=== PATIENT | male | born 1995 | race Caucasian/White ===

== ENCOUNTER 2024-02-19 16:40 | Emergency (ER) | payer OTHER, SELFPAY ==
[2024-02-19 16:48] VITALS: BP 145/77; PULSE 91; TEMP 36.8; O2SAT 99; BMI 20.1
--- NOTE | 2024-02-19 17:02 | ED_ITS ---
HPI - Abdominal Pain General Chief Complaint: Abdominal Pain Stated Complaint: Abdominal Pain Time Seen by Provider: 02/19/24 16:46 Source: patient Mode of arrival: walk-in Limitations: no limitations History of Present Illness HPI narrative: 28-year-old male presents for groin pain, bilaterally. This has been an ongoing issue and he states he has cysts. He has been seeing a specialist in [place] about it and is scheduled to have an ultrasound. The only reason he is here today is to get something for pain. He has been on no prescription pain medications. There is been no injury or new symptoms. No fever vomiting constipation or diarrhea. Related Data Previous Rx's ?Medication ?Instructions ?Recorded acetaminophen 300 mg-codeine 30 mg 1 tab PO Q6H PRN pain 5 days #20 02/19/24 tablet tabs Allergies Allergy/AdvReac Type Severity Reaction Status Date / Time No Known Drug Allergies Allergy Verified 02/19/24 16:47 Review of Systems ROS Narrative A ten point review of systems is negative except as noted above. Exam Narrative Exam Narrative: Nurses note and vital signs reviewed and patient is not hypoxic. General: The patient appears well and in no apparent distress. Patient is resting comfortably on cart. Skin: Warm, dry, no pallor noted. There is no rash noted. Head: Normocephalic, atraumatic Eye: Normal conjunctiva, no drainage Ears, Nose, Mouth, and Throat: oral mucosa is moist. Nares patent. Cardiovascular: Regular Rate and Rhythm Respiratory: Patient is in no distress, no accessory muscle use, lungs are clear to auscultation, no wheezing, rales or rhonchi Back: non-tender GI: Soft and nontender; in the bilateral inguinal area he has some palpable lym ph nodes on each side. No abscess or erythema Musculoskeletal: The patient has no evidence of calf tenderness, no pitting edema, symmetrical pulses noted bilaterally Neurological: A&O, normal speech Psychiatric: Cooperative Constitutional Vital Signs, click to edit/add: Last Vital Signs Temp 98.2 F 02/19/24 16:48 Pulse 91 H 02/19/24 16:48 Resp 16 02/19/24 16:48 BP 145/77 H 02/19/24 16:48 Pulse Ox 99 02/19/24 16:48 O2 Del Method Room Air 02/19/24 16:48 Course Vital Signs Vital signs: Vital Signs Temperature 98.2 F 02/19/24 16:48 Pulse Rate 91 H 02/19/24 16:48 Respiratory Rate 16 02/19/24 16:48 Blood Pressure 145/77 H 02/19/24 16:48 Pulse Oximetry 99 02/19/24 16:48 Oxygen Delivery Method Room Air 02/19/24 16:48 Temperature 98.2 F 02/19/24 16:48 Pulse Rate 91 H 02/19/24 16:48 Respiratory Rate 16 02/19/24 16:48 Blood Pressure 145/77 H 02/19/24 16:48 Pulse Oximetry 99 02/19/24 16:48 Oxygen Delivery Method Room Air 02/19/24 16:48 MDM - Abdominal Pain MDM Narrative Medical decision making narrative: The patient likely has inguinal adenopathy but this is an ongoing problem and he is already seeing a specialist and has testing ordered. He will be treated symptomatically. Treatment diagnosis and follow-up were discussed with the patient. He does not have hidradenitis or an abscess Differential Diagnosis Differential diagnosis: Likely other (Lymphadenopathy, hidradenitis, abscess) Discharge Plan Discharge Stand Alone Forms: Portal Instructions Chief Complaint: Abdominal Pain Clinical Impression: Abdominal pain Patient Disposition: Home, Self-Care Time of Disposition Decision: 16:59 Condition: Good Mode of Transportation: Private Vehicle Prescriptions / Home Meds: New acetaminophen-codeine 300-30 mg tablet 1 tab PO Q6H PRN (Reason: pain) 5 Days Qty: 20 0RF Print Language: Estonian Instructions: Abdominal Pain (ED) Referrals: Physician,Non-Staff, MD [Primary Care Provider] - 1 week
== END 2024-02-19 17:08 | disposition home or self-care (01) ==
PROVIDERS: Emergency Provider Emergency Medicine; PCP Family Medicine
DX: R10.9 Unspecified abdominal pain (principal)
CPT/HCPCS: 99281

== ENCOUNTER 2024-02-22 00:07 | Emergency (ER) | payer OTHER, SELFPAY ==
[2024-02-22 00:11] VITALS: BP 143/92; PULSE 85; TEMP 36.6; O2SAT 100
--- OUTSIDE RECORDS SUMMARY | 2024-02-22 00:25 | XMS_ITS | CCD ---
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 Name Role Phone ELIAZARNARGIS CANTOR Unavailable Unavailable ANGEL CHARLTON Unavailable Unavailable REQUEST, NONE LISTED Primary Care Unavaila ble JAM, KLAUS Admitting Unavailable JAM, KLAUS Attending Unavailable JAM, KLAUS Consulting Unavailable REQUEST, NONE LISTED Primary Care Unavaila ble GARRETT, DR IFRAH Bell Admitting Unavailable GARRETT, DR IFRAH Bell Attending Unavailable GARRETT, DR IFRAH Bell Consulting Unavailable LUE ., GAIL Bo Admitting Unavailable LUE ., GAIL Bo Attending Unavailable REQUEST, NONE LISTED Primary Care Unavaila ble LUE ., GAIL Bo Consulting Unavailable LUE ., GAIL Bo Admitting Unavailable LUE ., GAIL Bo Attending Unavailable REQUEST, NONE LISTED Primary Care Unavaila ble LUE ., GAIL Bo Consulting Unavailable LUE ., GAIL M Admitting Unavailable LUE ., GAIL M Attending Unavailable REQUEST, NONE LISTED Primary Care Unavaila ble REQUEST, NONE LISTED Referring Unavaila ble CASEY ALARCON Consulting Unavailable ELEUTERIO RAIN Consulting Unavailable BAL LAURENT Consulting Unavailable LUE ., GAIL M Consulting Unavailable MIKHAIL WILDER Referring Unavailable ANGEL CHARLTON Primary Care Unavailable ZOLTAN, ANGEL Primary Care Unavailable MILEY VERDUGO Attending Unavailable ANGEL CHARLTON Primary Care Unavailable GADIEL LUQUE Attending Unavailable DARRION BARTH Referring Unavailable ZOLTAN, ANGEL Primary Care Unavailable NONE, XXXX Primary Care Physician Unavailab Casey Clark Attending Unavailable LEONEL VEGA Attending Unavailab Hank Kaminski Attending Unavailable Casey Gonzales Attending Unavailable Medications Current Medications Medication Drug Class(es) Dates Sig (Normalized) Sig (Original) cephalexin 500 mg oral capsule (1 source) Cephalosporin Antibacterial Start: 01-24-2024 take 500 mg by mouth three times daily Cephalexin Active 500 MG PO Three times daily 14 08January 24, 2024 12:00am Problems Active Problems Problem Classification Problem Date Documented Da te Episodic/Chronic Anxiety disorders (5 sources) Anxiety disorder, unspecified; Translations: [ANXIETY DISORDER UNSPECIFIED] Onset: 08-20-2022 Chronic Genitourinary symptoms and ill-defined conditions (2 sources) Personal history of urinary (tract) infections; Translations: [Urinary symptoms ] Onset: 12-15-2021 09-30-2021 Episodic Lymphadenitis (3 sources) Localized enlarged lymph nodes; Translations: [Localized enlarged lymph nodes] Onset: 02-09-2024 Episodic Other fractures (1 source) Wedge compression fracture of unspecified thoracic vertebra, subsequent encounter for fracture with routine healing; Translations: [Wedge compression fracture of unspecified thoracic vertebra, subsequent encounter for fracture with routine healing] Onset: 02-06-2018 Episodic Other male genital disorders (2 sources) Cyst of epididymis; Translations: [Cyst of epididymis] Onset: 02-09-2024 Episodic Other male genital disorders (1 source) H/O: male genital disorder 09-30-2021 Episodic Other non-traumatic joint disorders (3 sources) Pain in left knee; Translations: [Pain in left knee] Onset: 08-04-2023 Episodic Sexually transmitted infections (not HIV or hepatitis) (1 source) Gonorrhea 11-01-2021 Episodic Sprains and strains (1 source) Sprain of unspecified site of left knee, initial encounter; Translations: [Sprain of unspecified site of left knee, initial encounter] Onset: 07-25-2023 Episodic Substance-related disorders (1 source) Nicotine dependence, cigarettes, uncomplicated; Translations: [NICOTINE DEPEND CIGARETTES UNCOMP] Onset: 07-22-2022 Chronic Unclassified (1 source) UNVACCINATED FOR COVID-19; Translations: [UNVACCINATED FOR COVID-19] Onset: 07-22-2022 Unclassified (1 source) CONTACT W/AND (SUSP) EXPOS COVID-19; Translations: [CONTACT W/AND (SUSP) EXPOS COVID-19] Onset: 12-07-2021 Urinary tract infections (1 source) Recurrent urinary tract infection 09-30-2021 Episodic Viral infection (1 source) COVID-19; Translations: [COVID-19] Onset: 07-22-2022 Past or Other Problems Problem Classification Problem Date Documented Da te Episodic/Chronic Chronic obstructive pulmonary disease and bronchiectasis (1 source) Bronchitis, not specified as acute or chronic; Translations: [BRONCHITIS NOT SPEC ACUTE/CHRON] Onset: 07-22-2022 Episodic Other lower respiratory disease (3 sources) Dyspnea, unspecified; Translations: [DYSPNEA UNSPECIFIED] Onset: 07-21-2022 Episodic Other male genital disorders (4 sources) Cyst of epididymis; Translations: [CYST OF EPIDIDYMIS] Onset: 12-08-2021 Episodic Other skin disorders (1 source) Epidermal cyst; Translations: [EPIDERMAL CYST] Onset: 12-03-2021 Episodic Results Test Name Value Interpretation Reference Range Facility Ambulatory Visit Summaryon 0 02-13-2024 Ambulatory Visit Summary FRIENDUMER :1995 Visit Date:02/13/2024 Ambulatory Visit Instructions Your Diagnosis Inguinal lymphadenopathy Epididymal cyst BMI 24.0-24.9, adult Vaping-related disorder Your Care Team Attending Physician - Casey Gonzales MD Primary Care Physician - Casey Gonzales MD Procedures Performed Arthroscopy of knee, Cholecystectomy, Epididymal cyst. Discharge Vitals Temperature (Temporal Artery) 37.3 ?C Heart Rate (Peripheral) 100 Respiratory Rate 18 Blood Pressure 130/68 Height 65 in Height 165 cm Weight 149.38 lb Weight 67.9 kg BMI 24.94 What to do next Scheduled Follow-Up Appointments Monday 1:00 PM EDT With: Where: [facility] Monday 8:30 AM EDT With: Casey Gonzales MD Where: [facility] [place] Normal [facility] Family Medicine Office/Clini c Noteon 02-13-2024 Family Medicine Office/Clinic Note HPI Staff Umer is a 28 year old male presenting to establish care Referred by Karo Vega urology office for inguinal lymphadenopathy Establish Care: History:epididymitis, recurrent uti's Any previous diagnosis: gonococcus, epididymal cyst History of seeing any specialist: urology 02/09/24 When was your last doctors visit: age 19 Last provider: no pcp in very long time Any recent labs: none Health Maintenance UTD: Colonoscopy: none PSA: none Acute: Current issues/complaints: History of Present Illness - Here to establish care. - Pt was seen by Urology. - Discussed with them. - Hx of LAD and treated at the with Abx. - NO improvement. - Imagine ordered. - LAD is TTP. Physical Exam Vitals & Measurements T: 37.3 ?C(Temporal Artery) HR: 100(Peripheral) RR: 18 BP: 130/68 SpO2: 99% HT: 65 in HT: 165 cm WT: 67.9 kg WT: 149.38 lb BMI: 24.94 General: alert, no acute distress ENMT: oral mucosa moist, Cardiovascular: regular rate and rhythm, normal peripheral perfusion Respiratory: Lungs CTA, respirations non labored Extremities: no deformity, no trauma, Lymph nodes present along both Inguinal canals. Neurological: oriented x 4, LOC appropriate for age, CN II-XII intact, motor strength equal & normal bilaterally, speech normal Abdomen: Soft, Nontender, Non-distended, + BS Assessment/Plan 1. Inguinal lymphadenopathy (R59.0: Localized enlarged lymph nodes) - Pt already scheduled for U/S - Already on Abx. - Will refer to surgery [place] [facility] 2. Epididymal cyst (N50.3: Cyst of epididymis) - Needs to see surgery Or[place] [facility] 3. BMI 24.0-24.9, adult (Z68.24: Body mass index [BMI] 24.0-24.9, adult) - BMI education given [place] [facility] 4. Vaping-related disorder (U07.0: Vaping-related disorder) - Discussed not vaping. Or[place] [facility] Follow-up No qualifying data available Patient Education BMI for Adults Problem List/Past Medical History Ongoing Epididymal cyst Gonococcus History of epididymitis Inguinal lymphadenopathy Recurrent UTI Historical No qualifying data Procedure/Surgical History Arthroscopy of knee, Cholecystectomy, Epididymal cyst. Medications No active medications Allergies No Known Allergies Social History Tobacco Former smoker, quit more than 30 days ago Tobacco Use:. Current vaping or e-cigarette use Smokeless Tobacco Use:. Vaping, 02/13/2024 Immunizations Vaccine Date Status Comments SARS-CoV-2 (COVID-19) Ad26 vaccine - Not Given Temporary contraindication - reschedule Normal [facility] Comment on above: Result Comment: Elec tronically Signed By: Christian SAXENA, Casey Schulz.celestine\Date and Time Signed: 02/13/24 13:41 EDT Patient Educationon 02-13-20 Patient Education Nutrition BMI for Adults What is BMI? Body mass index (BMI) is a number that is calculated from a person's weight and height. BMI can help estimate how much of a person's weight is composed of fat. BMI does not measure body fat directly. Rather, it is an alternative to procedures that directly measure body fat, which can be difficult and expensive. BMI can help identify people who may be at higher risk for certain medical problems. What are BMI measurements used for? BMI is used as a screening tool to identify possible weight problems. It helps determine whether a person is obese, overweight, a healthy weight, or underweight. BMI is useful for: ? Identifying a weight problem that may be related to a medical condition or may increase the risk for medical problems. ? Promoting changes, such as changes in diet and exercise, to help reach a healthy weight. BMI screening can be repeated to see if these changes are working. How is BMI calculated? BMI involves measuring your weight in relation to your height. Both height and weight are measured, and the BMI is calculated from those numbers. This can be done either in Italian ([place] or metric measurements. Note that charts and online BMI calculators are available to help you find your BMI quickly and easily without having to do these calculations yourself. To calculate your BMI in Italian ([place] measurements: 1. Measure your weight in pounds (lb). 2. Multiply the number of pounds by 703. ? For example, for a person who weighs 180 lb, multiply that number by 703, which equals 126,540. 3. Measure your height in inches. Then multiply that number by itself to get a measurement called inches squared. ? For example, for a person who is 70 inches tall, the inches squared measurement is 70 inches x 70 inches, which equals 4,900 inches squared. 4. Divide the total from step 2 (number of lb x 703) by the total from step 3 (inches squared): 126,540 ? 4,900 = 25.8. This is your BMI. To calculate your BMI in metric measurements: 1. Measure your weight in kilograms (kg). 2. Measure your height in meters (m). Then multiply that number by itself to get a measurement called meters squared. ? For example, for a person who is 1.75 m tall, the meters squared measurement is 1.75 m x 1.75 m, which is equal to 3.1 meters squared. 3. Divide the number of kilograms (your weight) by the meters squared number. In this example: 70 ? 3.1 = 22.6. This is your BMI. What do the results mean? BMI charts are used to identify whether you are underweight, normal weight, overweight, or obese. The following guidelines will be used: ? Underweight: BMI less than 18.5. ? Normal weight: BMI between 18.5 and 24.9. ? Overweight: BMI between 25 and 29.9. ? Obese: BMI of 30 or above. Keep these notes in mind: ? Weight includes both fat and muscle, so someone with a muscular build, such as an athlete, may have a BMI that is higher than 24.9. In cases like these, BMI is not an accurate measure of body fat. ? To determine if excess body fat is the cause of a BMI of 25 or higher, further assessments may need to be done by a health care provider. ? BMI is usually interpreted in the same way for men and women. Where to find more information For more information about BMI, including tools to quickly calculate your BMI, go to these websites: ? Centers for Disease Control and Prevention: www.cdc.gov ? [place] Heart Association: www.heart.org ? National Heart, Lung, and Blood [place]: www.nhlbi.nih.gov Summary ? Body mass index (BMI) is a number that is calculated from a person's weight and height. ? BMI may help estimate how much of a person's weight is composed of fat. BMI can help identify those who may be at higher risk for certain medical problems. ? BMI can be measured using Italian measurements or metric measurements. ? BMI charts are used to identify whether you are underweight, normal weight, overweight, or obese. This information is not intended to replace advice given to you by your health care provider. Make sure you discuss any questions you have with your health care provider. Document Revised: 06/24/2020 Document Reviewed: 05/01/2020 Elsevier Patient Education ? 2022 [employer]. [facility] Provider Letteron 02-13-2024 Provider Letter (Inserted Image. Mirella ble to display) February 13, 2024 UMER HERNANDEZ [address] [place] [id number] : 1995 To Whom It May Concern, Please excuse above patient from work du to an appt. with Dr. Gonzales @ 1:15 p.m. Date of Illness: From: _ To: _ May Return to Work On:02-14-24 Restrictions: _None Comments: _ Sincerely, Family Medicine [address] [address] [facility] Formson 02-12-2024 Forms [id number] [facility] Ambulatory Visit Summaryon 0 02-09-2024 Ambulatory Visit Summary UMER HERNANDEZ :1995 Visit Date:02/09/2024 Ambulatory Visit Instructions Your Diagnosis Inguinal lymphadenopathy Epididymal cyst Your Care Team Attending Physician - KARO VEGA PA-C Primary Care Physician - NONE, XXXX Procedures Performed Epididymal cyst. Discharge Vitals Height 165 cm Height 65 in Weight 78 kg Weight 171.6 lb BMI 28.65 What to do next You Need to Schedule the Following Appointments Follow Up with KARO VEGA PA-C, URL When: Comments: f/u pending imaging and lab results Where: [address] [place] [id number] You Need to Complete the Following US Scrotum (Contents), 02/09/24, Routine, Order for future visit, Transport Mode: Ambulatory, Reason: Other (please specify), No, Swollen lymph nodes of groin, [id number] alt[facility]rea, [facility] Allergies No Known Allergies Problems Ongoing - Any problem that you are currently receiving treatment for. Epididymal cyst Gonococcus History of epididymitis Inguinal lymphadenopathy Recurrent UTI Swollen lymph nodes UTI symptoms Patient Survey You may receive a survey via text or e-mail asking about your office visit. Please share your experience with us by completing your survey. We appreciate your feedback and thank you for choosing us for your care. Education Materials Testicular Self-Exam A self-examination of your testicles (testicular self-exam) involves looking at and feeling your testicles for abnormal lumps or swelling. Several things can cause swelling, lumps, or pain in your testicles. Some of these causes are: ? Injuries. ? Inflammation. ? Infection. ? Buildup of fluids around the testicle (hydrocele). ? Twisted testicles (testicular torsion). ? Testicular cancer. You may be at risk for testicular cancer if you have: ? An undescended testicle (cryptorchidism). ? A history of previous testicular cancer. ? A family history of testicular cancer. General tips and recommendations ? The testicles are easiest to examine after a warm bath or shower. They are more difficult to examine when you are cold because the muscles attached to the testicles retract and pull them up higher or into the abdomen. ? A normal testicle is egg-shaped and feels firm. It is smooth and not tender. ? It is normal to feel a firm, spaghetti-like cord at the back of your testicle. This is the spermatic cord. How to do a testicular self-exam 1. Stand and hold your penis away from your body. 2. Look at each testicle to check for changes in appearance, such as swelling or changes in size or shape. 3. Roll each testicle between your thumb and forefinger, feeling the entire testicle. Feel for: ? Lumps. ? Swelling. ? Discomfort. 4. Check the groin area between your abdomen and upper thighs on both sides of your body. Look and feel for any swelling or bumps that are tender. These could be enlarged lymph nodes. Contact a health care provider if: ? You find any bumps or lumps, such as a small, hard, pea-sized lump. ? You find swelling, pain, or soreness. ? You see or feel any other changes in your testicles. Summary ? A self-examination of your testicles (testicular self-exam) involves looking at and feeling your testicles for any changes. ? Check each of your testicles for lumps, swelling, or discomfort. These changes can be caused by many things. ? Check for swelling or tender bumps in your groin area between your lower abdomen and upper thighs. This information is not intended to replace advice given to you by your health care provider. Make sure you discuss any questions you have with your health care provider. Document Revised: 09/07/2020 Document Reviewed: 09/07/2020 For Your Imagination Patient Education ? 2022 [employer]. Connie Pe[facility]aloza [facility] Patient Educationon 02-09-20 Patient Education Urology Testicular Self-Exam A self-examination of your testicles (testicular self-exam) involves looking at and feeling your testicles for abnormal lumps or swelling. Several things can cause swelling, lumps, or pain in your testicles. Some of these causes are: ? Injuries. ? Inflammation. ? Infection. ? Buildup of fluids around the testicle (hydrocele). ? Twisted testicles (testicular torsion). ? Testicular cancer. You may be at risk for testicular cancer if you have: ? An undescended testicle (cryptorchidism). ? A history of previous testicular cancer. ? A family history of testicular cancer. General tips and recommendations ? The testicles are easiest to examine after a warm bath or shower. They are more difficult to examine when you are cold because the muscles attached to the testicles retract and pull them up higher or into the abdomen. ? A normal testicle is egg-shaped and feels firm. It is smooth and not tender. ? It is normal to feel a firm, spaghetti-like cord at the back of your testicle. This is the spermatic cord. How to do a testicular self-exam 1. Stand and hold your penis away from your body. 2. Look at each testicle to check for changes in appearance, such as swelling or changes in size or shape. 3. Roll each testicle between your thumb and forefinger, feeling the entire testicle. Feel for: ? Lumps. ? Swelling. ? Discomfort. 4. Check the groin area between your abdomen and upper thighs on both sides of your body. Look and feel for any swelling or bumps that are tender. These could be enlarged lymph nodes. Contact a health care provider if: ? You find any bumps or lumps, such as a small, hard, pea-sized lump. ? You find swelling, pain, or soreness. ? You see or feel any other changes in your testicles. Summary ? A self-examination of your testicles (testicular self-exam) involves looking at and feeling your testicles for any changes. ? Check each of your testicles for lumps, swelling, or discomfort. These changes can be caused by many things. ? Check for swelling or tender bumps in your groin area between your lower abdomen and upper thighs. This information is not intended to replace advice given to you by your health care provider. Make sure you discuss any questions you have with your health care provider. Document Revised: 09/07/2020 Document Reviewed: 09/07/2020 For Your Imagination Patient Education ? 2022 [employer]. [facility] Provider Letteron 02-09-2024 Provider Letter (Inserted Image. Mirella ble to display) February 09, 2024 UMER HERNANDEZ [address] [place] [id number] : 1995 To Whom It May Concern @ Please excuse above patient from work on 02/09/24. He had an appointment in our office at 12:20pm appointment today. Restrictions: None. He may return to work as scheduled. Comments: If any further verification is needed, call our office at [facility] at [phone] option 3. Sincerely, Karo Vega PA-C [facility] Screenson 02-09-2024 Screens [id number] [facility] Screens [id number] [facility] Urology Office/Clinic Noteon 02-09-2024 Urology Office/Clinic Note Chief Complaint OV HPI Staff KML pt. Last seen in office 12/29/21 due to epididymal cyst. S/p epididymal cyst removal 12/08/21. Pt. states he had a cyst under his scrotum, went to urgent care, took abx, it's gone. Also has cysts in his R groin. Have been there >1 yr. Not improved w abx. Dysuria: no Incomplete bladder emptying: no Hematuria: no Frequency: no Urgency: no Nocturia: 1-2x's Stream: good stream Post void dripping: no Wearing pads/ Depends: no Urge incontinence: no Stress incontinence: no Incontinence without Sensory Awareness: no Abdominal pain: no Flank pain: no History of Present Illness staff HPI reviewed and agree. Review of Systems PHQ Score Initial Depression Screen Score: 0 SCORE no fever, chills, malaise, myalgia. no rash/lesions. no chest pain, palpitations, or SOB. no abdominal pain, nausea, vomiting. no unilateral calf swelling, redness, pain Physical Exam Vitals & Measurements HT: 65 in HT: 165 cm WT: 78 kg WT: 171.6 lb BMI: 28.65 General: nontoxic, NAD Mouth: moist mucosa Lungs: normal respiratory effort Cardio: regular rate, good distal perfusion Abdomen: nondistended, no suprapubic distention or tenderness, no palpable masses, no CVA tenderness Neurologic: Grossly normal Skin: No rashes or suspicious lesions Genitourinary: normal scrotum, normal testes without discrete nodules bilat, normal epididymis, normal vas deferens/spermatic cord. Penis: normal shaft, normal glans. three firm, tender, 1 cm R inguinal nodes. no palpable L inguinal nodes. no perineal abnormalities. Assessment/Plan Dr. Molina pt IPSS 0. YIN 25. 1. Inguinal lymphadenopathy (R59.0: Localized enlarged lymph nodes) Ongoing for over 1 yr per pt. Unchanged, not getting larger or smaller. Cause shooting pains at times, other times don't really bother him. States he went to urgent care in [place] recently due to a lump/swelling under his scrotum which started a couple weeks ago and was given abx. This area resolved after abx course. I do not appreciate it today, nor does pt. However the cysts in his R going did not change with the abx which caused him concern. No UTI sxs. no burning w urination. no penile discharge. no frequency/urgency. Unable to provide urine sample today. Admits to a new sexual partner in the past year, denies being tested over the past year but says she has tested neg several times. admits to decreased appetite over the past 2 wks with mild stomach pain but no unintentional weight loss. Pt does not have a PCP. explained that this problem is not primarily urologic in nature. sounds like he had perineal cellulitis vs abscess which resolved w abx. however the inguinal lymphadenopathy started well before this and is unchanged. needs full eval, which is best done through primary care setting. should definitely include STD testing, but pt is unable to provide urine sample today and we do not have the swabs available IO to check for GC/chlam. Will get him set up with PCP. they can complete full eval, to include STD testing (may also include labs and imaging). 2. Epididymal cyst (N50.3: Cyst of epididymis) S/P left epididymal cyst removal 12/08/21. Pathology was negative for malignancy, noting chronic inflammation, fibrosis. No concern or changes. normal scrotal exam. Orders: US Scrotum (Contents) f/u uro PRN Total time spent reviewing previous notes/results/external documents, preparing the chart, conducting the encounter with the patient and family, ordering tests/medications, and documenting the encounter was 30 minutes. Follow-up With When Contact Information GARY CASTANEDA, KARO Maynard, URL [id number] [facility] [address] [place] [address] [id number] PRN Patient Education Testicular Self-Exam Documentation recorded by the jad Hu accurately reflects the services(s) I performed and decisions made by me. Authenticated by Karo Vega PA-C on 02/09/2024 13:13:09. IMaranda, personally scribed for Karo Vega PA-C on 02/09/2024 13:01:02. . Problem List/Past Medical History Ongoing Epididymal cyst Gonococcus History of epididymitis Recurrent UTI Swollen lymph nodes UTI symptoms Historical No qualifying data Procedure/Surgical History Epididymal cyst. Medications No active medications Allergies No Known Allergies Social History Tobacco Former smoker, quit more than 30 days ago Tobacco Use:. Never Smokeless Tobacco Use:., 02/09/2024 Immunizations Vaccine Date Status Comments SARS-CoV-2 (COVID-19) Ad26 vaccine - Not Given Temporary contraindication - reschedule Normal [facility] Comment on above: Result Comment: Elec tronically Signed By: KARO VEGA PA-C\.br\Date and Time Signed: 02/09/24 14:00 EDT\.br\Electronically Co-Signed By: Maranda Hu\.br\Date and Time Co-Signed: 02/09/24 13:01 EDT MRI KNEE LEFT WO CONTRASTon 08-25-2023 MRI KNEE LEFT WO CONTRAST EXAM: MRI KNEE LEFT WO CONTRAST COMPARISON: Left knee x-rays from 07/25/2023. HISTORY: Patellar dislocation after walking down steps 2-3 weeks ago. Persistent left knee pain. TECHNIQUE: Multiplanar and multisequence imaging of the left knee was performed without contrast. FINDINGS: There is marked bone marrow edema within the anterolateral aspect of the lateral femoral condyle with a large area of bone marrow edema consistent with a severe bony contusion. There appears to be a small nondisplaced fracture along the anterior aspect of the lateral femoral condyle with an adjacent area of high-grade or full-thickness articular cartilage loss involving the far anterior aspect of the lateral femoral condyle. This area of articular cartilage loss measures 7 mm transversely and 5 mm in AP dimension. There is also a moderate bony contusion involving the inferomedial aspect of the patella with subtle irregularity along the medial cortex of the patella. This bony contusion pattern is consistent with a recent transient lateral patellar dislocation. There is mild soft tissue edema adjacent to the medial patellofemoral ligament anteriorly near the patellar attachment site suspicious for low-grade sprain. The anterior cruciate ligament, posterior cruciate ligament and collateral ligaments are intact. The patellar tendon, distal quadriceps tendon and iliotibial band are intact. Evaluation of the medial meniscus demonstrates no well-defined medial meniscal tear. The articular cartilage in the medial compartment is intact. No lateral meniscal tear is evident. There appears to be low-grade articular cartilage loss involving the lateral femoral condyle centrally in addition to the focal area of articular cartilage loss anteriorly described above. There is a small joint effusion. There is mild lateral subluxation of the patella. The tibial tubercle- trochlear groove distance measures approximately 18 mm with a somewhat hypoplastic femoral trochlea. There is low-grade articular cartilage loss involving the medial facet of patella inferiorly. There is no Hinton's cyst. IMPRESSION: 1. MRI findings are consistent with a recent transient lateral patellar dislocation as described above with a severe bony contusion of the anterolateral aspect of the lateral femoral condyle and moderate bony contusion involving the inferior medial aspect of the patella. 2. There is a small nondisplaced fracture involving the anterior aspect of the lateral femoral condyle with an adjacent area of high-grade or full-thickness articular cartilage loss involving the lateral femoral condyle anteriorly measuring 7 x 5 mm. 3. Low-grade sprain of the medial patellofemoral ligament near the patellar attachment site. There is mild lateral subluxation of the patella with the tibial tubercle-trochlear groove distance measuring 18 mm. 4. No MRI evidence of meniscal tear. 5. Cruciate and collateral ligaments appear intact. Interpreted by: Jose M Bowden MD Signed by: Jose M Bowden MD 08/25/23 Final result Normal [facility] XR KNEE LEFT (MIN 4 VIEWS)on 07-25-2023 XR KNEE LEFT (MIN 4 VIEWS) IMAGES REVIEWED: XR KNEE LEFT (MIN 4 VIEWS) COMPARISON: None available. CLINICAL INDICATION: knee pain IMPRESSION: FINDINGS/IMPRESSION: Suspect acute nondisplaced intra-articular and osteochondral fracture of the lateral trochlea as best seen on the lateral view. Prominent suprapatellar effusion. Suspect ligamentous injury which could be better evaluated with follow-up nonemergent MRI. Question a small nondisplaced avulsed fracture fragment adjacent to the medial femoral condyle MCL origin on the frontal view. Interpreted by: Alvin Bonner MD Signed by: Alvin Bonner MD 07/25/23 Edited Result - FINAL Normal [facility]16 SARS-CoV-2 (COVID-19) RNA MORGAN+probe Ql (Unsp spec) Not detected Normal NOT DETECTED [facility] Comment on above: Result Comment: This test is not yet approved or cleared by the [place] FDA. When there are no FDA-approved or cleared tests available, and other criteria are met, FDA can make tests available under an emergency access mechanism called an Emergency Use Authorization (EUA). The EUA for this test is supported by the [place] of Health and Human Service's (HHS's) declaration that circumstances exist to justify the emergency use of in vitro diagnostics for the detection and/or diagnosis of the virus that causes COVID-19. This EUA will remain in effect (meaning this test can be used) for the duration of the COVID-19 declaration justifying emergency of IVDs, unless it is terminated or revoked by FDA (after which the test may no longer be used). When diagnostic testing is negative, the possibility of a false negative should be considered in the context of a patient's recent exposures and the presence of clinical signs and symptoms consistent with SARS-CoV-2. Performed By: #### C VDTB #### [facility] [address] [place] [address] Dr. Carol Anaya CBC AUTO DIFFon 12-01-2021 BASO # 0.0 103/ul Normal 0.0-0.1 [facility] Comment on above: Performed By: #### C BC #### [facility] [address] [place] [address] Dr. Carol Anaya Basophils/100 WBC (Bld) 0.7 % Normal 0.2-2.0 [facility] Comment on above: Performed By: #### C BC #### [facility] [address] [place] [address] Dr. Carol Anaya EO # 0.1 103/ul Normal 0.0-0.7 [facility] Comment on above: Performed By: #### C BC #### [facility] [address] [place] [address] Dr. Carol Anaya Eosinophils/100 WBC (Bld) 2.4 % Normal 0.9-7.0 [facility] Comment on above: Performed By: #### C BC #### [facility] [address] [place] [address] Dr. Carol Anaya Erythrocyte distribution width (RBC) [Ratio] 12.9 % Normal 11.0-15.0 [facility] Comment on above: Performed By: #### C BC #### [facility] [address] [place] [address] Dr. Carol Anaya Hematocrit (Bld) [Volume fraction] 43.3 % Normal 42.0-54.0 [facility] Comment on above: Performed By: #### C BC #### [facility] [address] [place] [address] Dr. Carol Anaya Hemoglobin (Bld) [Mass/Vol] 14.3 g/dL Normal 14.0-18.0 [facility] Comment on above: Performed By: #### C BC #### [facility] [address] [place] [address] Dr. Carol Anaya IG # 0.02 10e3/ul Normal 0.00-0.03 [facility] Comment on above: Performed By: #### C BC #### [facility] [address] [place] [address] Dr. Carol Anaya IG % 0.3 % Normal 0.0-0.5 [facility] Comment on above: Performed By: #### C BC #### [facility] [address] [place] [address] Dr. Carol Anaya LYMPH # 1.4 103/ul Normal 1.2-3.8 [facility] Comment on above: Performed By: #### C BC #### [facility] [address] [place] [address] Dr. Carol Anaya Lymphocytes/100 WBC (Bld) 24.9 % Normal 20.5-60.0 [facility] Comment on above: Performed By: #### C BC #### [facility] [address] [place] [address] Dr. Carol Anaya MANUAL DIFF REQ NO Normal [facility] Comment on above: Performed By: #### C BC #### [facility] [address] [place] [address] Dr. Carol Anaya MCH (RBC) [Entitic mass] 27.7 pg Normal 25.9-34.0 [facility] Comment on above: Performed By: #### C BC #### [facility] [address] [place] [address] Dr. Carol Anaya MCHC (RBC) [Mass/Vol] 33.0 g/dL Normal 29.9-35.2 [facility] Comment on above: Performed By: #### C BC #### [facility] [address] [place] [address] Dr. Carol Anaya MCV (RBC) [Entitic vol] 83.9 fL Normal 80.0-94.0 [facility] Comment on above: Performed By: #### C BC #### [facility] [address] [place] [address] Dr. Carol Anaya MONO # 0.6 103/ul Normal 0.3-0.8 [facility] Comment on above: Performed By: #### C BC #### [facility] [address] [place] [address] Dr. Carol Anaya Monocytes/100 WBC (Bld) 9.8 % Normal 1.7-12.0 [facility] Comment on above: Performed By: #### C BC #### [facility] [address] [place] [address] Dr. Carol Anaya NEUT # 3.6 103/ul Normal 1.4-6.5 [facility] Comment on above: Performed By: #### C BC #### [facility] [address] [place] [address] Dr. Carol Anaya Neutrophils/100 WBC (Bld) 61.9 % Normal 43.0-75.0 [facility] Comment on above: Performed By: #### C BC #### [facility] [address] [place] [address] Dr. Carol Anaya Platelet mean volume (Bld) [Entitic vol] 8.3 fL Critically low 9.5-13.5 [facility] Comment on above: Performed By: #### C BC #### [facility] [address] [place] [address] Dr. Carol Anaya PLT 292 103/ul Normal 150-450 [facility] Comment on above: Performed By: #### C BC #### [facility] [address] [place] [address] Dr. Carol Anaya RBC 5.16 106/ul Normal 4.70-6.10 [facility] Comment on above: Performed By: #### C BC #### [facility] [address] [place] [address] Dr. Carol Anaya WBC 5.7 103/ul Normal 4.0-11.0 [facility] Comment on above: Performed By: #### C BC #### [facility] [address] [address] [address] Carol Anaya PROF CHEM 8 (BAS METB)on Anion gap [Moles/Vol] 9.4 mmol/L Normal [facility] Comment on above: Performed By: #### B MP #### [facility] [address] [address] [address] Carol Anaya Calcium [Mass/Vol] 9.8 mg/dL Normal 8.4-10.2 [facility] Comment on above: Performed By: #### B MP #### [facility] [address] [place] [address] Dr. Carol Anaya Chloride [Moles/Vol] 100 mmol/L Normal 98-107 [facility] Comment on above: Performed By: #### B MP #### [facility] [address] [place] [address] Dr. Carol Anaya CO2 [Moles/Vol] 30.3 mmol/L Critically high 22.0-30.0 [facility] Comment on above: Performed By: #### B MP #### [facility] [address] [place] [address] Dr. Carol Anaya Creatinine [Mass/Vol] 0.79 mg/dL Normal 0.66-1.25 [facility] Comment on above: Performed By: #### B MP #### [facility] [address] [place] [address] Dr. Carol Anaya EGFR-AF TUVALUAN >60 Normal >=60 [facility] Comment on above: Performed By: #### B MP #### [facility] [address] [place] [address] Dr. Carol Anaya EGFR-NON AF TUVALUAN >60 Normal >=60 [facility] Comment on above: Performed By: #### B MP #### [facility] [address] [place] [address] Dr. Carol Anaya Glucose [Mass/Vol] 99 mg/dL Normal 74-106 [facility] Comment on above: Performed By: #### B MP #### [facility] [address] [address] [address] Carol Anaya Potassium [Moles/Vol] 3.7 mmol/L Normal 3.4-5.0 [facility] Comment on above: Performed By: #### B MP #### [facility] [address] [address] [address] Carol Anaya Sodium [Moles/Vol] 136 mmol/L Critically low 137-145 [facility] Comment on above: Performed By: #### B MP #### [facility] [address] [address] [address] Carol Anaya Urea nitrogen [Mass/Vol] 20.0 mg/dL Normal 9.0-20.0 [facility] Comment on above: Performed By: #### B MP #### [facility] [address] [address] [address] Carol Anaya Urea nitrogen/Creatinin e [Mass ratio] 25.3 mg/mg Normal [facility] Comment on above: Performed By: #### B MP #### [facility] [address] [address] [address] Carol Anaya SURGICAL PATHOLOGYon 018 SURGICAL PATHOLOGY Specimen #: [id number] Physician: BREANA SAHU M.D. ___FINAL DIAGNOSISSoft tissue, left hip, biopsy - Lobules of atrophic adipose tissue. COMMENTHistologic sections show multiple lobules of well-differentiated adipocytesthat are smaller in size than typical and contain intervening hyaline tomyxoid connective tissue stroma with numerous capillaries. I do notappreciate a significant inflammatory component to this process. The histologic findings are not entirely specific but could potentiallyrepresent fat atrophy, an unusual lipoma, or localized lipodystrophy. I donot see significant inflammation to suggest a panniculitis. Correlationwith clinical findings is necessary. Thank you for the opportunity to provide an opinion in this case. Pleasecall the Bone and Soft Tissue Pathology Consultation Service at [phone] with questions or if additional follow-up information becomesavailable regarding this patient. This case was reviewed in conjunctionwith the bone and soft tissue pathology fellow, Greg Hu MD. ALEXEY/MILY/maikel 03/19/18Jose M Thomas M.D.(Electronic Signature) __SPECIMEN SUBMITTEDA: 1 SLIDE AND 1 BLOCK ([id number]) CLINICAL DATANone provided.Patient ID #: Date of Report: 03/19/2018Date of Procedure: 03/16/2018Date of Receipt: 03/16/2018Submitted by: BREANA SAHU M.D.Location: Diagnostic interpretation performed at [facility], [address] [place] [address]. Normal [facility] Comment on above: Performed By: #### S ####See report for performing lab information. MRI THORACIC SPINE WO CONTRA STon 02-06-2018 MRI THORACIC SPINE WO CONTRAST EXAMINATION:MRI OF THE THORACIC SPINE WITHOUT CONTRAST 02/06/2018 9:41 amTECHNIQUE:Multiplanar multisequence MRI of the thoracic spine was performed without theadministration of intravenous contrast.COMPARISON:MRI thoracic spine May 2016CT thoracic spine from November 2016HISTORY:ORDERING SYSTEM PROVIDED HISTORY: Closed compression fracture of thoracicvertebra with routine healing, subsequent encounterTECHNOLOGIST PROVIDED HISTORY:Reason for exam:->COMPRESSION FXFINDINGS:BONES/ALIGNMEN T: The height and alignment of the thoracic spine is notsignificantly changed. Compression fracture deformity involving T4 isstable. Multiple endplate Schmorl's node deformities are noted. There is noacute fracture or bone edema in the vertebral bodies. There is subtleincreased signal in the T4 and T5 spinous process. However detail in thisregion is limited due to artifact. There is mild kyphotic curvature in theupper thoracic spine, unchanged.SPINAL CORD: Spinal cord detail is significantly limited due to artifact. Onsagittal T 2 image 7, there is linear increased signal in the cord from [id number] T11. This is not seen on the axial images and may be artifact. Thecord is anterior positioned within the canal between T3 and T5. Detailthrough these levels is limited due to artifact. Subtle cord signalhyperintensity centered at T4-5 would be difficult to exclude due toartifact. Subtle cord volume loss at T4-5 would also be difficult to excludegiven the artifact.SOFT TISSUES: Postop changes are noted at multiple levels posteriorly in theupper thoracic spine extending down to approximately T6-7.Minor multilevel disc bulging is noted in the thoracic spine. There is nodisc protrusion or herniation.Multilevel facet hypertrophic changes are noted.IMPRESSION: No change in the compression fracture at T4. There is no acute fractureMinor multilevel disc bulging is noted without disc protrusion or herniation.Multilevel facet hypertrophic changes are noted throughout the thoracic spineMultilevel postoperative change in the posterior elements of the upper andmid thoracic spine is noted. This likely accounts for the subtle increasedSTIR signal in the posterior elements at the surgical level.Interpreted by:KERRI Schofieldigned by:Anthony Garrett MD02/06/18inal result Normal [facility] Progress Noteon 02-06-2018 HIM IP Note OR Polymer Chemist Normal [facility] Vital Signs Date Time Vital Sign Value Performing Clinician Johni lisa 01-24-2024 12:20040 Body height 177.8 cm [facility] 01-24-2024 12:20-0400 Body mass index (BMI) [Ratio] 20.2 kg/m2 [facility] 01-24-2024 12:20040 Body weight 63.95 kg [facility] 01-24-2024 12:20-0400 Diastolic blood pressure 24 mm[Hg] [facility] 01-24-2024 12:20-0400 Heart rate 107 /min [facility] 01-24-2024 12:20-0400 Respiratory rate 16 /min [facility] 01-24-2024 12:20-0400 SaO2% (BldA) [Mass fraction] 98 % [facility] 01-24-2024 12:20-0400 Systolic blood pressure 128 mm[Hg] [facility] Encounters Encounter Date Encounter Type Care Provider Facility Start: 03-12-2024 ambulatory Casey Gonzales Facility :[facility] Start: 02-28-2024 ambulatory Hank PILLAIBlaire Facility :[facility] Start: 02-13-2024 ambulatory Casey Gonzales Facility:[facility] Start: 02-13-2024 End: 02-14-2024 ambulatory Casey Gonzales Facility:[facility] Start: 02-12-2024 ambulatory Casey Gonzales Facility:[facility] Start: 02-09-2024 ambulatory Casey Christian Facility:[facility] Start: 02-09-2024 End: 02-10-2024 ambulatory PA-C KARO VEGA Facility:[facility] Start: 02-09-2024 End: 02-09-2024 Patient encounter procedure KARO VEGA [facility] Start: 01-24-2024 End: 01-24-2024 ambulatory [facility] Work Phone: Start: 01-24-2024 End: 01-24-2024 Patient encounter procedure [facility] Work Phone: Start: 08-17-2023 End: 08-20-2023 ambulatory MIKHAIL WILDER [facility] Start: 08-04-2023 ambulatory DARRION Pino [facility] Start: 07-25-2023 End: 07-25-2023 Emergency department patient visit [facility] Start: 06-22-2023 End: 06-22-2023 Emergency department patient visit [facility] Start: 08-20-2022 End: 08-20-[address] NONE LISTED REQUEST Facility:[facility] Start: 07-21-2022 End: 07-21-[address] NONE LISTED REQUEST Facility:[facility] Start: 12-08-2021 End: 12-08-2021 ambulatory GAIL MOLINA . Facility: Start: 12-07-2021 Encounter for preprocedural laboratory examination GAIL MOLINA . [facility] Start: 12-04-2021 End: 12-05-2021 ambulatory GAIL MOLINA . Facility: Start: 12-04-2021 End: 12-05-2021 Encounter for preprocedural laboratory examination GAIL MOLINA . Facility:[facility] Start: 12-03-2021 Encounter for preprocedural cardiovascular examination GAIL MOLINA . [facility] Start: 12-03-2021 Encounter for preprocedural laboratory examination GAIL MOLINA . [facility] Start: 12-01-2021 End: 12-02-2021 ambulatory GAIL MOLINA . Facility: Start: 12-01-2021 End: 12-02-2021 Encounter for preprocedural cardiovascular examination GAIL MOLINA . Facility: Start: 02-06-2018 End: 02-09-2018 Ambulatory RATUL RAYALEERI [facility] Procedures Date Procedure Procedure Detail Performing Clinician Start: 02-06-2018 Mri spinal canal thoracic w/o contrast matrl NARGIS VERONICA Cyst of epididymis (disorder) KARO VEGA Payers Date Payer Category Payer Unknown [id number] 2016 Unknown [id number] 1993 Unknown [id number] 2.16.84 [id number] 1993 Unknown [id number] 2.16.84 [id number] 1993 Unknown [id number] 2.16.84 [id number] 1993 Unknown [id number] 2.16.84 [id number] 1993 Unknown [id number] 2.16.84 [id number] 1993 Unknown [id number] 2.16.8 [id number] 1993 Unknown [id number] 2.16.8 [id number] 1993 Unknown [id number] 2.16.8 [id number] 1993 Unknown [id number] 2.16.8 [id number] 1993 Unknown [id number] 2.16.8 [id number] 1993 Unknown [id number] 2.16.8 [id number] 1993 Unknown [id number] 2.16.8 [id number] 1993 Unknown [id number] 2.16.8 [id number] 1959 Unknown [id number] 1959 Unknown [id number] Social History Date Type Detail Facility [facility]: [facility] Start: 1995 Sex Assigned At Male [facility] Start: 02-09-2024 Tobacco smoking status Ex-smoker (fi nding) [facility] Tobacco smoking status Never [facility] Sex Assigned At Male [facility] Functional Status Date Assessment Result Facility 02-09-2024 Functional Status N/A [facility] Hospital Discharge instructions 02-09-2024 Note Date & Type Note Facility 02-09-2024 Hospital Discharg e instructions Patient Education 02/09/2024 12:56:19 Testicular Self-Exam Testicular Self-Exam A self-examination of your testicles (testicular self-exam) involves looking at and feeling your testicles for abnormal lumps or swelling. Several things can cause swelling, lumps, or pain in your testicles. Some of these causes are: Injuries. Inflammation. Infection. Buildup of fluids around the testicle (hydrocele). Twisted testicles (testicular torsion). Testicular cancer. You may be at risk for testicular cancer if you have: ?An undescended testicle (cryptorchidism). ?A history of previous testicular cancer. ?A family history of testicular cancer. General tips and recommendations The testicles are easiest to examine after a warm bath or shower. They are more difficult to examine when you are cold because the muscles attached to the testicles retract and pull them up higher or into the abdomen. A normal testicle is egg-shaped and feels firm. It is smooth and not tender. It is normal to feel a firm, spaghetti-like cord at the back of your testicle. This is the spermatic cord. How to do a testicular self-exam 1.Stand and hold your penis away from your body. 2.Look at each testicle to check for changes in appearance, such as swelling or changes in size or shape. 3.Roll each testicle between your thumb and forefinger, feeling the entire testicle. Feel for: Lumps. Swelling. Discomfort. 4.Check the groin area between your abdomen and upper thighs on both sides of your body. Look and feel for any swelling or bumps that are tender. These could be enlarged lymph nodes. Contact a health care provider if: You find any bumps or lumps, such as a small, hard, pea-sized lump. You find swelling, pain, or soreness. You see or feel any other changes in your testicles. Summary A self-examination of your testicles (testicular self-exam) involves looking at and feeling your testicles for any changes. Check each of your testicles for lumps, swelling, or discomfort. These changes can be caused by many things. Check for swelling or tender bumps in your groin area between your lower abdomen and upper thighs. This information is not intended to replace advice given to you by your health care provider. Make sure you discuss any questions you have with your health care provider. Document Revised: 09/07/2020 Document Reviewed: 09/07/2020 For Your Imagination Patient Education 2022 [employer]. Follow Up Care 01/23/2024 11:31:03 With:GARY CASTANEDA, KARO Maynard, URL Address: [address] [place] [address] [phone] When: Unknown Comments:f/u pending imaging and lab results [facility] Evaluation + Plan note Radiology Note Date & Type Note Facility Evaluation + Plan note Future Appointments Appointment Date:02/23/2024 01:00:00 PM Scheduled Provider: Location:[facility] Appointment Type:US Prostate/Scrotum ([facility]) Future Scheduled TestsUS Scrotum (Contents) 02/23/24 [facility] Evaluation note Note Date & Type Note Facility Evaluation note No assessment information availa [facility] Work Phone: Hospital course Narrative Note Date & Type Note Facility Hospital course Narrative No data available for this section [facility] Progress note Note Date & Type Note Facility Progress note No data available for this section [facility] Summary Purpose Family History No Family History Records Found Relationship Condition Age at Onset Recorded Date/T alicia Not Specified Hypertension Unknown Advance Directives No Advanced Directives Records Found Advance Directive Response Recorded Date/ Time Advance Directives No January 23 024 12:15pm Chief Complaint and Reason for Visit Chief Complaint Cyst Additional Source Comments (unrecognized sect ion and content) No Status Records FoundNo Status Records FoundNo Status Records FoundNo Status Records FoundNo Status Records Found INFORMATION SOURCE (unrecogn ized section and content) DATE CREATED AUTHOR 04/03/2018 [facility] DATE CREATED AUTHOR AUTHOR'S ORGANIZ ATION 04/05/2018 [facility] DATE CREATED AUTHOR AUTHOR'S ORGANIZ ATION 11/02/2022 [facility] DATE CREATED AUTHOR AUTHOR'S ORGANIZ ATION 08/26/2023 [facility] DATE CREATED AUTHOR AUTHOR'S ORGANIZ ATION 02/16/2024 [facility] Care Teams (unrecognized sec tion and content) Team Status: Active Member Role Status Dates PHYSICIAN NO FAMILY Primary Care Provider Active Team Status: Inactive Member Role Status Dates PHYSICIAN NO FAMILY Primary Care Provider Active Start: January 24, 2024 End: January 24, 2024 LAKHWINDER Tolentino Attending Provider Active S tart: January 24, 2024 End: January 24, 2024 Goals (unrecognized section and content) Goals may be documented in a n alternate section No data available for this section FOR RECORDS PERTAINING TO PATIENTS WHO ARE OR HAVE BEEN ENROLLED IN A CHEMICAL DEPENDENCY/SUBSTANCEABUSE PROGRAM, SOME INFORMATION MAY BE OMITTED. This clinical summary was aggregated from multiple sources. Caution should be exercised in using it in the provision of clinical care. This summary normalizes information from multiple sources, and as a consequence, information in this document may materially change the coding, format and clinical context of patient data. In addition, data may be omitted in some cases. CLINICAL DECISIONS SHOULD BE BASED ON THE PRIMARY CLINICAL RECORDS. [facility]. provides no warranty or guarantee of the accuracy or completeness of information in this document.
--- NOTE | 2024-02-22 00:54 | ED.GENADUL1 ---
HPI HPI - General Adult General Chief complaint: Abdominal Pain Stated complaint: groin pain Time Seen by Provider: 02/22/24 00:25 Source: patient Mode of arrival: walk-in Limitations: no limitations History of Present Illness HPI narrative: This 28-year-old male presents for evaluation of pain in bilateral inguinal areas. This has been present for the past 6 months. He has recently seen in this emergency department and given a prescription for Tylenol with Codeine No. 3. He states that he cannot tolerate this and is causing him nausea and vomiting. He was referred to urology and had an ultrasound done at [facility] earlier today. He states that he has had cysts in his testicles in the past. He is not having any penile discharge. He states he has had STD testing in the past. He does not have any dysuria. He has not having any fever or chills. He has not had any weight loss. He is under the impression that after the ultrasound results he will be referred to a surgeon and the nodule/lymph nodes in his inguinal areas will be removed. Related Data Allergies Allergy/AdvReac Type Severity Reaction Status Date / Time No Known Drug Allergies Allergy Verified 02/22/24 00:15 Opioid HPI Opioid Management Most Recent Opioid Data: No Data to Display Opioid side effects: nausea Prescription drug monitoring program results: PDMP reviewed and no issues identified Review of Systems ROS Status of ROS 10 or more systems reviewed and unremarkable except as noted in history and below Exam Narrative Exam Narrative: Physical exam chaperoned by Cyndie TAYLOR Nurses note and vital signs reviewed and patient is not hypoxic.Blood pressure is noted to be elevated at 143/92. General: Thin nontoxic male resting comfortably on the stretcher, no respiratory distress, no active vomiting Skin: Warm, dry, no pallor noted. There is no rash noted. Head: Normocephalic, atraumatic Eye: Normal conjunctiva, no drainage, EOMI. PERRL Cardiovascular: Regular Rate and Rhythm Respiratory: Patient is in no distress, no accessory muscle use, lungs are clear to auscultation, no wheezing, rales or rhonchi Back: non-tender, no CVA tenderness bilaterally to percussion. GI: Normal bowel sounds, no tenderness to palpation, no masses appreciated. No rebound, guarding, or rigidity noted. : Bilateral shotty inguinal lymphadenopathy. Palpation of this area causes the patient pain. There is no sign of abscess or active infection. The patient has shaved in this area and there is some mild shave rash appreciated. Musculoskeletal: The patient has no evidence of calf tenderness, no pitting edema, symmetrical pulses noted bilaterally Neurological: A&O x4, normal speech Psychiatric: Cooperative Constitutional Vital Signs, click to edit/add: Last Vital Signs Temp 97.9 F 02/22/24 00:11 Pulse 85 02/22/24 00:11 Resp 16 02/22/24 00:11 BP 143/92 H 02/22/24 00:11 Pulse Ox 100 02/22/24 00:11 O2 Del Method Room Air 02/22/24 00:11 Course Vital Signs Vital signs: Vital Signs Temperature 97.9 F 02/22/24 00:11 Pulse Rate 85 02/22/24 00:11 Respiratory Rate 16 02/22/24 00:11 Blood Pressure 143/92 H 02/22/24 00:11 Pulse Oximetry 100 02/22/24 00:11 Oxygen Delivery Method Room Air 02/22/24 00:11 Temperature 97.9 F 02/22/24 00:11 Pulse Rate 85 02/22/24 00:11 Respiratory Rate 16 02/22/24 00:11 Blood Pressure 143/92 H 02/22/24 00:11 Pulse Oximetry 100 02/22/24 00:11 Oxygen Delivery Method Room Air 02/22/24 00:11 Medical Decision Making [facility] Narrative Medical decision making narrative: This 28-year-old male presents stating that he is having ongoing bilateral groin pain. This has been present for the past 6 months. He is an ultrasound done at [facility] earlier today. He was seen in this emergency department several days ago and prescribed Tylenol with Codeine. He states he cannot tolerate the Tylenol with codeine due to the gastrointestinal side effects with nausea and vomiting. His physical exam was normal with the exception of some mild shotty bilateral inguinal lymphadenopathy. Do not see any sign of STDs. He plans to follow up with urology after the ultrasound has reported. I did review his OAR[facility] report. He has had 1 prescription for Tylenol with Codeine and 1 prescription for anxiolytics in the past year. He will be medicated in emergency department with a dose of Zofran and 2 Larslan to go. I suspect he will not be able to get an additional Larslan prescription filled as he just got a Tylenol with codeine prescription filled but give him his prescription for the Larslan, #10. Discharge Plan Discharge Stand Alone Forms: Portal Instructions Chief Complaint: Abdominal Pain Clinical Impression: Medication side effect, Lymphadenopathy, inguinal Patient Disposition: Home, Self-Care Time of Disposition Decision: 01:01 Condition: Good Print Language: Wallisian Instructions: Lymphadenopathy (ED) Referrals: CASEY CARPIO [Primary Care Provider] - 1 week
[2024-02-22] MEDS: ONDANSETRON 4 MG RAPDIS TABLET SL (01:18)
[2024-02-22] MEDS: HYDROCODONE/ACET 5-325 MG TABLET 2 TAB PO (01:18)
== END 2024-02-22 01:23 | disposition home or self-care (01) ==
PROVIDERS: Emergency Provider Emergency Medicine; PCP Family Medicine
DX: R59.0 Localized enlarged lymph nodes (principal); R11.2 Nausea with vomiting, unspecified; T40.2X5A Adverse effect of other opioids, initial encounter
CPT/HCPCS: 99283

== ENCOUNTER 2024-06-27 16:51 | Emergency (ER) | payer OTHER, SELFPAY ==
[2024-06-27] VITALS (11 sets, daily range): BP systolic 143; BP diastolic 89; PULSE 84–114; TEMP 36.9; O2SAT 98–100; BMI 21.5
--- NOTE | 2024-06-27 16:59 | XR_ITS ---
The [address] [address] Patient Name: UMER HERNANDEZ MRN: [id number] date: 1995 Sex: M Assigned Patient Location: ER Current Patient Location: ER Accession/Order Number: [id number] Exam Date: 06/27/2024 17:08 Report Date: 06/27/2024 17:27 At the request of: MIGNON SALAS Procedure: XR chest 2V EXAM: XR chest 2V HISTORY: chest pain COMPARISON: None. TECHNIQUE: Chest X-ray, 2 views FINDINGS: Support devices: None. Lungs/pleura: No consolidation, effusion, or pneumothorax. Heart and mediastinum: Normal contours. Bones: No acute abnormality identified. XR/XR chest 2V Impression: No radiographic evidence of acute cardiopulmonary process. Electronically authenticated by: GAETANO HOGUE Date: 06/27/2024 17:27
--- NOTE | 2024-06-27 16:59 | ECG_ITS ---
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
--- OUTSIDE RECORDS SUMMARY | 2024-06-27 17:03 | XMS_ITS | CCD ---
Author Organization [facility] CliniSyin Care Team Providers Care Unit Aide Name Role Phone NARGIS VERONICA Unavailable Unavailable ANGEL CHARLTON Unavailable Unavailable REQUEST, NONE LISTED Primary Care Unavaila ble JAM, KLAUS Admitting Unavailable AJM, KLAUS Attending Unavailable JAM, KLAUS Consulting Unavailable REQUEST, NONE LISTED Primary Care Unavaila reny TUCKER, DR IFRAH Bell Admitting Unavailable GARRETT, DR IFRAH Bell Attending Unavailable GARRETT, DR IFRAH Bell Consulting Unavailable LUE ., GAIL Bo Admitting Unavailable LUE ., GAIL Bo Attending Unavailable REQUEST, NONE LISTED Primary Care Unavaila ble LUE ., GAIL Bo Consulting Unavailable LUE ., GAIL M Admitting Unavailable LUE ., GAIL Bo Attending Unavailable REQUEST, DR NONE LISTED Primary Care Unavaila ble LUE ., GAIL Bo Consulting Unavailable LUE ., GAIL Bo Admitting Unavailable LUE ., GAIL Bo Attending Unavailable REQUEST, DR NONE LISTED Primary Care Unavaila ble REQUEST, DR NONE LISTED Referring Unavaila ble TETEOSIBetzy, CASEY Consulting Unavailable BRISEYDA, ELEUTERIO Consulting Unavailable ANASTASIIA, BAL Consulting Unavailable LUE ., GAIL M Consulting Unavailable MIKHAIL WILDER Referring Unavailable ANGEL CHARLTON Primary Care Unavailable ZOLTAN, ANGEL Primary Care Unavailable MILEY VERDUGO Attending Unavailable ANGEL CHARLTON Primary Care Unavailable GADIEL LUQUE Attending Unavailable DARRION BARTH Referring Unavailable ANGEL CHARLTON Primary Care Unavailable NONE, XXXX Primary Care Physician Unavailab Casey Clark Primary Care Physician [phone] MD Brooklyn Roland Attending Provider [phone] MD Casey Gonzales Primary Care Provider [phone] Casey Gonzales Attending Unavailable Casey Gonzales Attending Unavailable LEONEL VEGA Admitting UnavailLEONEL Gracia Attending LEONEL Ruggiero Referring LEONEL Ruggiero Attending UnavailHank Castro Attending Unavailable Casey Gonzales. Attending Unavailable Casey Gonzales. Attending Unavailable MD Casey Gonzales Primary Care Provider BROOKLYN FUNES Attending Unavailable ASUNCION Wolff, BROOKLYN Attending Unavailable ASUNCION Wolff, BROOKLYN Attending Unavailable ASUNCION Wolff, BROOKLYN Attending Unavailable ASUNCION Wolff, BROOKLYN Attending Unavailable MD Casey Gonzales Primary Care Provider MD Brooklyn Roland Attending Provider [phone] Brooklyn Roland Admitting Unavailable Casey Gonzales Primary Care Unavailable Brooklyn Roland Attending Unavailable Casey Gonzales Primary Care Unavailable Brooklyn Roland Attending Unavailable Brooklyn Roland Admitting Unavailable Casey Gonzales Primary Care Unavailable Brooklyn Roland Attending Unavailable Brooklyn Roland Admitting Unavailable Medications Current Medications Medication Drug Class(es) Dates Sig (Normalized) Sig (Original) fluticasone propionate 0.05 mg/actuat metered dose nasal spray (1 source) Corticosteroid Start: 06-18-2024 take 1 spray(s) nasal route twice daily Fluticasone Propionate (Flonase Allergy Relief) 50 mcg/actuation spray,suspension Active 1 SPRAY INTRANASAL Twice daily 16 June 18, 2024 12:00am administer 1 spray into each nostril 12 hr loratadine 5 mg / pseudoephedrine sulfate 120 mg extended release oral tablet (1 source) alpha-Adrenergic Agonist Start: 06-18-2024 take 1 tablet by mouth every twelve hours, then take 1 tablet by mouth every twelve hours Loratadine-Pseud oephedrine (Claritin-D 12 Hour) 5-120 mg tablet extended release 12 hr Active 1 TAB PO Every 12 hours 28 04June 18, 2024 12:00am Completed/Discontinued Medications Medication Drug Class(es) Dates Sig (Normalized) Sig (Original) acetaminophen 500 mg oral tablet (3 sources) Start: 05-03-2024 End: 06-18-2024 take 2 tablets by mouth every six hours Acetaminophen (Tylenol Extra Strength) 500 mg tablet Discontinued 1000 MG PO Every 6 hours May 03, 2024 12:00am June 18, 2024 4:40pm acetaminophen 325 mg / HYDROcodone bitartrate 5 mg oral tablet (4 sources) Opioid Agonist Start: 02-26-2024 End: 05-09-2024 take 1 tablet by mouth every six hours Hydrocodone-Acetam inophen Discontinued 1 TAB PO Q6H 20 February 26, 2024 May 09, 2024 11:47am cephalexin 500 mg oral capsule (5 sources) Cephalosporin Antibacterial Start: 01-24-2024 End: 02-26-2024 take 500 mg by mouth three times daily Cephalexin Discontinued 500 MG PO Three times daily 30 January 24, 2024 12:00am February 26, 2024 12:48pm ibuprofen 200 mg oral tablet (3 sources) Nonsteroidal Anti-inflammatory Drug Start: 05-03-2024 End: 06-18-2024 take 1 tablet by mouth every eight hours Ibuprofen (Advil) 200 mg tablet Discontinued 200 MG PO Every 8 hours May 03, 2024 12:00am June 18, 2024 4:40pm Problems Active Problems Problem Classification Problem Date Documented Date Episodic/Chronic Anxiety disorders (5 sources) Anxiety disorder, unspecified; Translations: [ANXIETY DISORDER UNSPECIFIED] Onset: 08-20-2022 Chronic Genitourinary symptoms and ill-defined conditions (2 sources) Personal history of urinary (tract) infections; Translations: [Urinary symptoms ] Onset: 12-15-2021 09-30-2021 Episodic Other fractures (1 source) Wedge compression fracture of unspecified thoracic vertebra, subsequent encounter for fracture with routine healing; Translations: [Wedge compression fracture of unspecified thoracic vertebra, subsequent encounter for fracture with routine healing] Onset: 02-06-2018 Episodic Other male genital disorders (2 sources) Cyst of epididymis; Translations: [Cyst of epididymis] Onset: 02-09-2024 Episodic Other male genital disorders (2 sources) H/O: male genital disorder 09-30-2021 Episodic Other nervous system disorders (4 sources) Acute postoperative pain; Translations: [Other acute postprocedural pain] 02-26-2024 Episodic Other non-traumatic joint disorders (3 sources) Pain in left knee; Translations: [Pain in left knee] Onset: 08-04-2023 Episodic Other skin disorders (1 source) Localized swelling, mass and lump, trunk; Translations: [Localized swelling, mass and lump, trunk] Onset: 05-09-2024 Episodic Sexually transmitted infections (not HIV or hepatitis) (2 sources) Gonorrhea 11-01-2021 Episodic Skin and subcutaneous tissue infections (1 source) Cutaneous abscess of groin; Translations: [Cellulitis and abscess of trunk] 01-24-2024 Episodic Sprains and strains (1 source) Sprain [...] EXPOS COVID-19] Onset: 12-07-2021 Urinary tract infections (2 sources) Recurrent urinary tract infection 09-30-2021 Episodic Viral infection (1 source) COVID-19; Translations: [COVID-19] Onset: 07-22-2022 Past or Other Problems Problem Classification Problem Date Documented Da te Episodic/Chronic Chronic obstructive pulmonary disease and bronchiectasis (1 source) Bronchitis, not specified as acute or chronic; Translations: [BRONCHITIS NOT SPEC ACUTE/CHRON] Onset: 07-22-2022 Episodic Lymphadenitis (5 sources) Localized enlarged lymph nodes; Translations: [Localized enlarged lymph nodes] Onset: 02-09-2024 Episodic Other lower respiratory disease (3 sources) Dyspnea, unspecified; Translations: [DYSPNEA UNSPECIFIED] Onset: 07-21-2022 Episodic Other male genital disorders (4 sources) Cyst of epididymis; Translations: [CYST OF EPIDIDYMIS] Onset: 12-08-2021 Episodic Other skin disorders (1 source) Epidermal cyst; Translations: [EPIDERMAL CYST] Onset: 12-03-2021 Episodic Results Test Name Value Interpretation Reference Range Facility [facility] 05-09-2024 L Specimen: [id number] Received: 05/09/24 Status: ROSIE Mathis Num: [id number] Spec Type: Surgical Subm Dr: Brooklyn Roland MD Tissues: A Soft Tissue/Surgical Margin-Other than Tumor,Mass,Lip or Alla (LT HIP MASS) Procedures: HE, Gross/Micro L4 Age/ Patient Sex Location Account Attending Physician Friend,William Powell 28/M [place] [id number] Brooklyn Roland MD SPEC NUM: [id number] RECD: 05/09/24 STATUS: LALITHAOmar MATHIS NUM: [id number] SHERWIN: 05/09/24- SUBM DR: Brooklyn Roland MD ENTERED: 05/09/24 [facility] DR: SPEC TYPE: Surgical DEPT: S ORDERED: HE, Gross/Micro L4 ORDERED: HE, Gross/Micro L4 Pathological Diagnosis Hip, left; soft tissue mass (excision): Organized and encapsulated fat necrosis with dystrophic calcifications No malignancy seen Clinical Information Left hip mass Gross Description Received in formalin labeled with the patient's name, date of and left hip mass are 2 firm portions of yellow-pink soft tissue collectively measuring 1.4 x 1.2 x 0.4 cm. Each fragment is inked black and sectioned to reveal chalky, dark yellow and hardened cut surfaces. The specimen is entirely submitted following decalcification in A1. CPT Codes 77312, 22791 Specimen: [id number] Received: 05/09/24 Status: ROSIE Mathis Num: [id number] Spec Type: Surgical Subm Dr: Brooklyn Roland MD Tissues: A Soft Tissue/Surgical Margin-Other than Tumor,Mass,Lip or Alla (LT HIP MASS) Procedures: HE, Gross/Micro L4 Patient: William Summers [id number] (Continued) Signed (signature on file) Thierno Lindquist Jr., MD 05/11/24 1238 Normal [facility] Consultation Noteon 04-10-20 Consultation Note [id number]#[id number] Normal [facility] Ambulatory Visit Summaryon 0 04-09-2024 Ambulatory Visit Summary WILLIAM SUMMERS :1995 Visit Date:04/09/2024 Ambulatory Visit Instructions Your Diagnosis Rash Vaping-related disorder Your Care Team Attending Physician - Casey Gonzales MD Primary Care Physician - Christian SAXENA, Casey Nelson Procedures Performed Arthroscopy of knee, Cholecystectomy, Epididymal cyst. Discharge Vitals Temperature (Temporal Artery) 37.0 ?C Heart Rate (Peripheral) 66 Respiratory Rate 16 Blood Pressure 120/72 Height 165 cm Height 65 in Weight 66.6 kg Weight 146.52 lb BMI 24.46 What to do next Scheduled Follow-Up Appointments Monday 8:15 AM EST With: Christian SAXENA, Casey Nelson Where: [facility] Medicine Office/Clini c Noteon 04-09-2024 Family Medicine Office/Clinic Note HPI Staff William is a 28 year old male presenting for one month follow up reactive lymphadenopathy JOSEFA rxed round of clindamycin, completed them as directed He feels things are about the same, at work yesterday found an area and squeezed it and bunch of pus came out. questions/concerns: History of Present Illness - See staff HPI. Review of Systems PHQ Score Initial Depression Screen Score: 0 SCORE Physical Exam Vitals & Measurements T: 37.0 ?C(Temporal Artery) HR: 66(Peripheral) RR: 16 BP: 120/72 SpO2: 99% HT: 65 in HT: 165 cm WT: 66.6 kg WT: 146.52 lb BMI: 24.46 General: alert, no acute distress ENMT: oral mucosa moist, Cardiovascular: regular rate and rhythm, normal peripheral perfusion Respiratory: Lungs CTA, respirations non labored Extremities: no deformity, no trauma Neurological: oriented x 4, LOC appropriate for age, CN II-XII intact, motor strength equal & normal bilaterally, speech normal Abdomen: Soft, Nontender, Non-distended, + BS L groin area has a surgical scar that clear fluid can be squeezed out of. Erythema limited to the boarders of the scar. Assessment/Plan 1. Rash (R21: Rash and other nonspecific skin eruption) - Not infected. - Use topical Abx to decrease risk of infection. - Pt to follow up with Surgery today 2. Vaping-related disorder (U07.0: Vaping-related disorder) - Please stop vaping. Orders: clindamycin, 300 mg = 1 cap(s), Oral, BID, # 20 cap(s), Refills(s) 0, Pharmacy: [facility], 165, cm, 03/12/24 8:28:00 EDT, Height/Length Dosing, 70.2, kg, 03/12/24 8:28:00 EDT, Weight Dosing Follow-up No qualifying data available Patient Education Rash, Adult Problem List/Past Medical History Ongoing Gonococcus History of epididymitis Inguinal lymphadenopathy Rash Reactive lymphadenopathy Recurrent UTI Historical No qualifying data Procedure/Surgical History Arthroscopy of knee, Cholecystectomy, Epididymal cyst. Medications No active medications Allergies No Known Allergies Social History Tobacco Former smoker, quit more than 30 days ago Tobacco Use:. Current vaping or e-cigarette use Smokeless Tobacco Use:. Vaping, Household tobacco concerns: No., 04/09/2024 Immunizations Vaccine Date Status Comments SARS-CoV-2 (COVID-19) Ad26 vaccine - Not Given Temporary contraindication - reschedule Normal [facility] Comment on above: Result Comment: Elec tronically Signed By: Christian SAXENA, Casey Nelson\.br\Date and Time Signed: 04/09/24 08:29 EDT Patient Educationon 04-09-20 Patient Education Infectious Disease Rash, Adult A rash is a change in the color of your skin. A rash can also change the way your skin feels. There are many different conditions and factors that can cause a rash. Some rashes may disappear after a few days, but some may last for a few weeks. Common causes of rashes include: ? Viral infections, such as: ? Colds. ? Measles. ? Hand, foot, and mouth disease. ? Bacterial infections, such as: ? Scarlet fever. ? Impetigo. ? Fungal infections, such as Anh. ? Allergic reactions to food, medicines, or skin care products. Follow these instructions at home: The goal of treatment is to stop the itching and keep the rash from spreading. Pay attention to any changes in your symptoms. Follow these instructions to help with your condition: Medicine Take or apply edla-vbc-jvmmtow and prescription medicines only as told by your health care provider. These may include: ? Corticosteroid creams to treat red or swollen skin. ? Anti-itch lotions. ? Oral allergy medicines (antihistamines). ? Oral corticosteroids for severe symptoms. Skin care ? Apply cool compresses to the affected areas. ? Do not scratch or rub your skin. ? Avoid covering the rash. Make sure the rash is exposed to air as much as possible. Managing itching and discomfort ? Avoid hot showers or baths, which can make itching worse. A cold shower may help. ? Try taking a bath with: ? Epsom salts. Follow marine electrician apprentice instructions on the packaging. You can get these at your local pharmacy or grocery store. ? Baking soda. Pour a small amount into the bath as told by your health care provider. ? Colloidal oatmeal. Follow marine electrician apprentice instructions on the packaging. You can get this at your local pharmacy or grocery store. ? Try applying baking soda paste to your skin. Stir water into baking soda until it reaches a paste-like consistency. ? Try applying calamine lotion. This is an cfrz-rgz-qkxywmp lotion that helps to relieve itchiness. ? Keep cool and out of the sun. Sweating and being hot can make itching worse. General instructions ? Rest as needed. ? Drink enough fluid to keep your urine pale yellow. ? Wear loose-fitting clothing. ? Avoid scented soaps, detergents, and perfumes. Use gentle soaps, detergents, perfumes, and other cosmetic products. ? Avoid any substance that causes your rash. Keep a journal to help track what causes your rash. Write down: ? What you eat. ? What cosmetic products you use. ? What you drink. ? What you wear. This includes jewelry. ? Keep all follow-up visits as told by your health care provider. This is important. Contact a health care provider if: ? You sweat at night. ? You lose weight. ? You urinate more than normal. ? You urinate less than normal, or you notice that your urine is a darker color than usual. ? You feel weak. ? You vomit. ? Your skin or the whites of your eyes look yellow (jaundice). ? Your skin: ? Tingles. ? Is numb. ? Your rash: ? Does not go away after several days. ? Gets worse. ? You are: ? Unusually thirsty. ? More tired than normal. ? You have: ? New symptoms. ? Pain in your abdomen. ? A fever. ? Diarrhea. Get help right away if you: ? Have a fever and your symptoms suddenly get worse. ? Develop confusion. ? Have a severe headache or a stiff neck. ? Have severe joint pains or stiffness. ? Have a seizure. ? Develop a rash that covers all or most of your body. The rash may or may not be painful. ? Develop blisters that: ? Are on top of the rash. ? Grow larger or grow together. ? Are painful. ? Are inside your nose or mouth. ? Develop a rash that: ? Looks like purple pinprick-sized spots all over your body. ? Has a bull's eye or looks like a target. ? Is not related to sun exposure, is red and painful, and causes your skin to peel. Summary ? A rash is a change in the color of your skin. Some rashes disappear after a few days, but some may last for a few weeks. ? The goal of treatment is to stop the itching and keep the rash from spreading. ? Take or apply yzfb-ush-xxmpcet and prescription medicines only as told by your health care provider. ? Contact a health care provider if you have new or worsening symptoms. ? Keep all follow-up visits as told by your health care provider. This is important. This information is not intended to replace advice given to you by your health care provider. Make sure you discuss any questions you have with your health care provider. Document Revised: 07/14/2022 Document Reviewed: 07/14/2022 [employer] Patient Education ? 2022 [employer]. [facility] Provider Letteron 04-09-2024 Provider Letter (Inserted Image. Mirella ble to display) April 09, 2024 WILLIAM USMMERS [address] [place] [id number] : 1995 To Whom It May Concern, Please excuse above patient from work patient did have appt. with Dr. Gonzales Monday04-09-24 @ 8:15 a.m. this morning Date of Illness: From: _ To: _ Restrictions: _NONE Comments: _ Sincerely, [address] [address] [facility] Provider Letter (Inserted Image. Mirella ble to display) April 09, 2024 WILLIAM SUMMERS [address] [place] [id number] : 1995 To Whom It May Concern, Please excuse above patient from work patient did have appt. with Dr. Gonzales @ 8:15 a.m. this morning Date of Illness: From: _ To: _ Restrictions: _NONE Comments: _ Sincerely, [address] [facility] Consultation Noteon 03-28-20 Consultation Note [id number] Normal [facility] Ambulatory Visit Summaryon 0 03-12-2024 Ambulatory Visit Summary FRIEND, WILLIAM Powlel :1995 Visit Date:03/12/2024 Ambulatory Visit Instructions Your Diagnosis History of epididymitis Inguinal lymphadenopathy BMI 25.0-25.9,adult Over weight Vaping-related disorder Reactive lymphadenopathy Your Care Team Attending Physician - Casey Gonzales MD Primary Care Physician - Casey Gonzales MD Procedures Performed Arthroscopy of knee, Cholecystectomy, Epididymal cyst. Discharge Vitals Temperature (Oral) 36.7 ?C Heart Rate (Peripheral) 84 Respiratory Rate 16 Blood Pressure 114/66 Height 165 cm Height 65 in Weight 70.2 kg Weight 154.44 lb BMI 25.79 What to do next Scheduled Follow-Up Appointments Monday 8:15 AM EDT With: Csaey Gonzales MD Where: [facility] Family Medicine Office/Clini c Noteon 03-12-2024 Family Medicine Office/Clinic Note HPI Staff William is a 28 year old male presenting for one month follow up inguinal lymphadenopathy JOSEFA referred to surgery for lymphadenopathy and cyst Had surgery on February 25. To see surgeon end of this week, he's ready to go back to work questions/concerns: still hurts but no other issues History of Present Illness - Pt here for follow up. - Reviewed Gen Surg note. Review of Systems PHQ Score Initial Depression Screen Score: 0 SCORE Physical Exam Vitals & Measurements T: 36.7 ?C(Oral) HR: 84(Peripheral) RR: 16 BP: 114/66 SpO2: 98% HT: 65 in HT: 165 cm WT: 70.2 kg WT: 154.44 lb BMI: 25.79 General: alert, no acute distress ENMT: oral mucosa moist, Cardiovascular: regular rate and rhythm, normal peripheral perfusion Respiratory: Lungs CTA, respirations non labored Extremities: no deformity, no trauma, LAD on the R hip. Mobile. Nontender. Surgical scares are healing well. Neurological: oriented x 4, LOC appropriate for age, CN II-XII intact, motor strength equal & normal bilaterally, speech normal Abdomen: Soft, Nontender, Non-distended, + BS Assessment/Plan 1. Reactive lymphadenopathy (R59.9: Enlarged lymph nodes, unspecified) - Will try a round of Clinda to see if the last LAD goes down. - Follow up in 1 month. 2. History of epididymitis (Z87.438: Personal history of other diseases of male genital organs) - No symptoms today. 3. Inguinal lymphadenopathy (R59.0: Localized enlarged lymph nodes) - Path report from shows reactive LAD - Two removed - Still has one on his hip. - Pt is out of work till the 03/20 4. BMI 25.0-25.9,adult (Z68.25: Body mass index [BMI] 25.0-25.9, adult) - BMI education given 5. Over weight (E66.3: Overweight) - Diet and exercise advised 6. Vaping-related disorder (U07.0: Vaping-related disorder) - Please stop vaping Orders: clindamycin, 300 mg = 1 cap(s), Oral, BID, # 20 cap(s), Refills(s) 0, Pharmacy: [facility], 165, cm, 03/12/24 8:28:00 EDT, Height/Length Dosing, 70.2, kg, 03/12/24 8:28:00 EDT, Weight Dosing Follow-up No qualifying data available Patient Education BMI for Adults Problem List/Past Medical History Ongoing Gonococcus History of epididymitis Inguinal lymphadenopathy Reactive lymphadenopathy Recurrent UTI Historical No qualifying data Procedure/Surgical History Arthroscopy of knee, Cholecystectomy, Epididymal cyst. Medications clindamycin 300 mg oral cap, 300 mg= 1 cap(s), Oral, BID Allergies No Known Allergies Social History Tobacco Former smoker, quit more than 30 days ago Tobacco Use:. Current vaping or e-cigarette use Smokeless Tobacco Use:. Vaping, Household tobacco concerns: No., 03/12/2024 Immunizations Vaccine Date Status Comments SARS-CoV-2 (COVID-19) Ad26 vaccine - Not Given Temporary contraindication - reschedule Normal [facility] Comment on above: Result Comment: Elec tronically Signed By: Christian SAXENA, Casey Schulz.br\Date and Time Signed: 03/12/24 08:52 EDT Patient Educationon 03-12-20 Patient Education Nutrition BMI for Adults What [...] numbers. This can be done either in German ([place] or metric measurements. Note that charts and online BMI calculators are available to help you find your BMI quickly and easily without having to do these calculations yourself. To calculate your BMI in German ([place].S[place] measurements: 1. Measure your weight in [...] for Disease Control and Prevention: www.cdc.gov ? [place] [employer]: www.heart.org ? National Heart, Lung, and Blood [place]: www.nhlbi.nih.gov Summary ? Body mass index (BMI) is a number that is calculated from a person's weight and height. ? BMI may help estimate how much of a person's weight is composed of fat. BMI can help identify those who may be at higher risk for certain medical problems. ? BMI can be measured using German measurements or metric measurements. ? BMI charts are used to identify whether you are underweight, normal weight, overweight, or obese. This information is not intended to replace advice given to you by your health care provider. Make sure you discuss any questions you have with your health care provider. Document Revised: 06/24/2020 Document Reviewed: 05/01/2020 [employer] Patient Education ? 2022 [employer]. [facility] Consultation Noteon 03-06-20 Consultation Note [id number]#[id number] Normal [facility] Consultation Noteon 02-29-20 Consultation Note [id number]#[id number] Normal [facility] ED Note-Physicianon 02-29-20 ED Note-Physician [id number]#[id number] Normal [facility] Jesús 02-26-2024 L Specimen: [id number] Received: 02/27/24 Status: ROSIE Mathis Num: [id number] Spec Type: Surgical Subm Dr: Brooklyn Roland MD Tissues: A Lymph Node - Biopsy (Needle or Incisional) (LT INGUINAL LN) B Lymph Node - Biopsy (Needle or Incisional) (RT INGUINAL LN) Procedures: HE/9, Gross/Micro L4/2, AE1-AE3/2, BCL-2/2, BCL-6/2, CD10/2, CD20/2, CD3/2, CD30/2, CD5/2, IHC First AB/2, IHC Add AB/14, SOX-10/2, DIFF QWIK/3 Age/ Patient Sex Location Account Attending Physician Friend,William Powell 28/M [place] [id number] Brooklyn Roland MD SPEC NUM: [id number] RECD: 02/27/24 STATUS: ROSIE MATHIS NUM: [id number] SHERWIN: 02/26/24- [facility] HOSPITAL DR: Brooklyn Roland MD ENTERED: 02/27/24 [facility] DR: SPEC TYPE: Surgical DEPT: S ORDERED: HE/9, Gross/Micro L4/2, AE1-AE3/2, BCL-2/2, BCL-6/2, CD10/2, CD20/2, CD3/2, CD30/2, CD5/2, IHC First AB/2, IHC Add AB/14, SOX-10/2, DIFF QWIK/3 ORDERED: HE/9, Gross/Micro L4/2, AE1-AE3/2, BCL-2/2, BCL-6/2, CD10/2, CD20/2, CD3/2, CD30/2, CD5/2, IHC First AB/2, IHC Add AB/14, SOX-10/2, DIFF QWIK/3 Supplemental Report Addendum 1 Entered: 03/06/24-7687 Flow cytometry is negative for lymphoproliferative disorder. Please see attached flow cytometry report. Addendum Signed (signature on file) Chema Zazueta MD 03/06/24 1352 Pathological Diagnosis A. Left inguinal lymph node, excision: Reactive follicular hyperplasia. See comment B. Right inguinal lymph node, excision: Reactive follicular hyperplasia. See comment Comment: Specimen: [id number] Received: 02/27/24 Status: ROSIE Mathis Num: [id number] Spec Type: Surgical Subm Dr: Brooklyn Roland MD Tissues: A Lymph Node - Biopsy (Needle or Incisional) (LT INGUINAL LN) B Lymph Node - Biopsy (Needle or Incisional) (RT INGUINAL LN) Procedures: HE/9, Gross/Micro L4/2, AE1-AE3/2, BCL-2/2, BCL-6/2, CD10/2, CD20/2, CD3/2, CD30/2, CD5/2, IHC First AB/2, IHC Add AB/14, SOX-10/2, DIFF QWIK/3 Patient: William Summers [id number] (Continued) Specimen: [id number] Received: 02/27/24 (Continued) Pathological Diagnosis (Continued) Signed (signature on file) Chema Zazueta MD 02/29/24 1915 Specimen: [id number] Received: 02/27/24 Status: ROSIE Mathis Num: [id number] Spec Type: Surgical Subm Dr: Brooklyn Roland MD Tissues: A Lymph Node - Biopsy (Needle or Incisional) (LT INGUINAL LN) B Lymph Node - Biopsy (Needle or Incisional) (RT INGUINAL LN) Procedures: HE/9, Gross/Micro L4/2, AE1-AE3/2, BCL-2/2, BCL-6/2, CD10/2, CD20/2, CD3/2, CD30/2, CD5/2, IHC First AB/2, IHC Add AB/14, SOX-10/2, DIFF QWIK/3 Patient: William Summers [id number] (Continued) Specimen: [id number] Received: 02/27/24 (Continued) Pathological Diagnosis (Continued) Diagnosis is confirmed with CD3, CD20, CD5, CD10, Bcl-2, BCL6, pancytokeratin and SOX10 immunostain. Gross Description A. Received fresh labeled with the patient's name, date of and left inguinal lymph node is a 1.4 x 0.8 x 0.6 cm moreau-pink lymph node. The specimen is trisected revealing a homogenous pink cut surface. 2 touch prep slides are performed. A portion of the fresh specimen is sent for flow. The remainder of the specimen is entirely submitted in A1. B. Received fresh labeled with the patient's name, date of and right inguinal lymph node are 2 moreau-pink lymph nodes measuring 1.0 x 0.7 x 0.6 cm and 0.8 x 0.7 x 0.5 cm. 2 touch prep slides are performed. The specimen is entirely submitted in B1 (smaller lymph node) and B2 (larger lymph node). Clinical history: Enlarged inguinal lymph nodes CPT Codes [id number] Specimen: [id number] Received: 02/27/24 Status: ROSIE Mathis Num: [id number] Spec Type: Surgical Subm Dr: Brooklyn Roland MD Tissues: A Lymph Node - Biopsy (Needle or Incisional) (LT INGUINAL LN) B Lymph Node - Biopsy (Needle or Incisional) (RT INGUINAL LN) Procedures: HE/9, Gross/Micro L4/2, AE1-AE3/2, BCL-2/2, BCL-6/2, CD10/2, CD20/2, CD3/2, CD30/2, (more content not included)... Normal [facility] US Extremity Non-Vascular Li mited Lefton 02-23-2024 US Extremity Non-Vascular Limited Left Exam Date/Time: 02/21/2024 15:49 EDT Reason for Exam: [id number];Other (please specify) Report PLEASE SEE US Extremity Non-Vascular Limited Right REPORT DATED: 02/21/2024. Ordering Provider: , FINAL REPORT Dictated: 02/23/2024 8:57 am Darek Maloney MD Signed (Electronic Signature): 02/23/2024 8:57 am Signed by: Darek Maloney MD Transcribed by: SHEILA Technologist: HOSEA Rosales [facility] US Extremity Non-Vascular Li mited Righton 02-23-2024 US Extremity Non-Vascular Limited Right Exam Date/Time: 02/21/2024 15:48 EDT Reason for Exam: Lump Report IMPRESSION: A FEW MILDLY PROMINENT PROBABLY REACTIVE INGUINAL LYMPH NODES. SMALL SUPERFICIAL CALCIFIED NODULES ON THE LEFT, PROBABLY THE CHRONIC SEQUELA OF PREVIOUS TRAUMA OR INFECTION. EXAM: US Extremity Non-Vascular Limited Left, US Extremity Non-Vascular Limited Right DATE: 02/21/2024 3:47 PM CLINICAL HISTORY: Lump. COMPARISON: None available. TECHNIQUE: Directed ultrasound was performed of both groins at areas of palpable concern, with a regional surveys. FINDINGS: At the areas of palpable concern within both inguinal regions, there are a few mildly prominent reactive-appearing lymph nodes. The largest on the right measures approximately 1.6 x 1.3 x 1 0.4 cm. The largest on the left measures approximately 1.1 x 1.0 x 0.6 cm. Within the superficial aspect of the proximal lateral left thigh are too directly adjacent apparently heavily calcified nodules approximately 3 to 4 mm deep to the skin surface. Both measure approximately 1.7 x 1.2 cm in dimension. There are no significant hernias, organized fluid collections, or other findings of concern identified. Ordering Provider: , FINAL REPORT Dictated: 02/23/2024 8:57 am Darek Maloney MD Signed (Electronic Signature): 02/23/2024 8:57 am Signed by: Darek Maloney MD Transcribed by: SHEILA Technologist: HOSEA Rosales [facility] Consent for Treatmenton Consent for Treatment [id number]#1.00TIFF Normal [facility] Ambulatory Visit Summaryon 0 02-13-2024 Ambulatory Visit Summary FRIENDWILLIAM :1995 Visit Date:02/13/2024 Ambulatory Visit Instructions Your Diagnosis Inguinal lymphadenopathy Epididymal cyst BMI 24.0-24.9, adult Vaping-related disorder Your Care Team Attending Physician - Casey Gonzales MD. Primary Care Physician - Casey Gonzales MD Procedures Performed Arthroscopy of knee, Cholecystectomy, Epididymal cyst. Discharge Vitals Temperature (Temporal Artery) 37.3 ?C Heart Rate (Peripheral) 100 Respiratory Rate 18 Blood Pressure 130/68 Height 65 in Height 165 cm Weight 149.38 lb Weight 67.9 kg BMI 24.94 What to do next Scheduled Follow-Up Appointments Monday 1:00 PM EDT With: Where: [facility] Monday. 2023 8:30 AM EDT With: Christian SAXENA, Casey Nelson Where: [facility] [place] [facility] Family Medicine Office/Clini c Noteon 02-13-2024 Family Medicine Office/Clinic Note HPI Staff William is a 28 year old male presenting [...] Abx. - Will refer to surgery Ordered: [facility] Internal Ambulatory Referral 2. Epididymal cyst (N50.3: Cyst of epididymis) - Needs to see surgery Ordered: [facility] Internal Ambulatory Referral 3. BMI 24.0-24.9, adult (Z68.24: Body mass index [BMI] 24.0-24.9, adult) - BMI education given Ordered: [facility] Internal Ambulatory Referral 4. Vaping-related disorder (U07.0: Vaping-related disorder) - Discussed not vaping. Ordered: [facility] Internal Ambulatory Referral Follow-up No qualifying data [...] Not Given Temporary contraindication - reschedule Normal [facility] Comment on above: Result Comment: Elec tronically Signed By: Christian SAXENA, Casey Nelson\.br\Date and Time Signed: 02/13/24 13:41 EDT Patient [...] numbers. This can be done either in German (U.S.) or metric measurements. Note that charts and online BMI calculators are available to help you find your BMI quickly and easily without having to do these calculations yourself. To calculate your BMI in German (U.S.) measurements: 1. Measure your weight in [...] for Disease Control and Prevention: www.cdc.gov ? [place] Heart Association: www.heart.org ? National Heart, Lung, and Blood [place]: www.nhlbi.nih.gov Summary ? Body mass index (BMI) is a number that is calculated from a person's weight and height. ? BMI may help estimate how much of a person's weight is composed of fat. BMI can help identify those who may be at higher risk for certain medical problems. ? BMI can be measured using German measurements or metric measurements. ? BMI charts are used to identify whether you are underweight, normal weight, overweight, or obese. This information is not intended to replace advice given to you by your health care provider. Make sure you discuss any questions you have with your health care provider. Document Revised: 06/24/2020 Document Reviewed: 05/01/2020 [employer] Patient Education ? 2022 [employer]. [facility] Provider Letteron 02-13-2024 Provider Letter (Inserted Image. Mirella ble to display) February 13, 2024 WILLIAM SUMMERS [address] [place] [id number] : 1995 To Whom It May Concern, Please excuse above patient from work du to an appt. with Dr. Gonzales @ 1:15 p.m. Date of Illness: From: _ To: _ May Return to Work On:02-14-24 Restrictions: _None Comments: _ Sincerely, [place] [address] [facility] Formson 02-12-2024 Forms [id number]#1.00TIFF [facility] Ambulatory Visit Summaryon 0 02-09-2024 Ambulatory Visit Summary FRIENDWILLIAM :1995 Visit Date:02/09/2024 Ambulatory Visit Instructions Your [...] imaging and lab results Where: [address] [place] [address] [phone] You Need to Complete the Following US Scrotum (Contents), 02/09/24, Routine, Order for future visit, Transport Mode: Ambulatory, Reason: Other (please specify), No, Swollen lymph nodes of groin, pp_set_radiology_subspeci alty, [place] Allergies No Known Allergies Problems Ongoing - [...] provider. Document Revised: 09/07/2020 Document Reviewed: 09/07/2020 [employer] Patient Education ? [address] [employer] [facility] Patient Educationon 02-09-20 Patient Education Urology Testicular [...] provider. Document Revised: 09/07/2020 Document Reviewed: 09/07/2020 [employer] Patient Education ? 2022 [employer]. [facility] Provider Letteron 02-09-2024 Provider Letter (Inserted Image. Mirella ble to display) February 09, 2024 WILLIAM FRIEND [address] [place] [id number] : 1995 To Whom It May Concern @ Please excuse above patient from work on 02/09/24. He had an appointment in our office at 12:20pm appointment today. Restrictions: None. He may return to work as scheduled. Comments: If any further verification is needed, call our office at [facility] at [phone] option 3. Sincerely, Karo Vega PA-C [facility] Screenson 02-09-2024 Screens [id number]#1.00TIFF Normal [facility] Screens [id number]#1.00TIFF Normal [facility] Urology Office/Clinic Noteon 02-09-2024 Urology Office/Clinic Note [...] States he went to urgent care in [place] recently due to a lump/swelling under his [...] Contact Information GARY CASTANEDA, KARO Maynard, URL [address] [place] [address] [phone] PRN Patient Education Testicular Self-Exam Documentation recorded by the scribe Maranda Hu accurately reflects the services(s) I performed and decisions made by me. Authenticated by Karo Vega PA-C on 02/09/2024 13:13:09. I, Maranda Hu, personally scribed for Karo Vega PA-C on [...] Not Given Temporary contraindication - reschedule Normal [facility] Comment on above: Result Comment: Elec tronically [...] M Bowden MD 08/25/23 Final result Normal [facility] XR KNEE LEFT (MIN 4 VIEWS)on 07-25-2023 [...] MD 07/25/23 Edited Result - FINAL Normal [facility] Covid-19 PCR (CVDTBH)on 11-16 SARS-CoV-2 (COVID-19) RNA MORGAN+probe Ql (Unsp spec) Not detected Normal NOT DETECTED [facility] Comment on above: Result Comment: This test is not yet approved or cleared by the [place] FDA. When there are no FDA-approved or cleared tests available, and other criteria are met, FDA can make tests available under an emergency access mechanism called an Emergency Use Authorization (EUA). The EUA for this test is supported by the Assistant Athletic Trainer of Health and Human Service's (HHS's) declaration [...] consistent with SARS-CoV-2. Performed By: #### C VDTBH #### [facility] [address] [place] [address] Dr. Carol Anaya CBC AUTO DIFFon 12-01-2021 BASO # 0.0 103/ul Normal 0.0-0.1 [facility] Comment on above: Performed By: #### C BC #### [facility] [address] [place] [address] Dr. Carol Anaya Basophils/100 WBC (Bld) 0.7 % Normal 0.2-2.0 [facility] Comment on above: Performed By: #### C BC #### [facility] [address] [place] [address] Dr. Carol Anaya EO # 0.1 103/ul Normal 0.0-0.7 [facility] Comment on above: Performed By: #### C BC #### [facility] [address] [place] [address] Dr. Carol Anaya Eosinophils/100 WBC (Bld) 2.4 % Normal 0.9-7.0 [facility] Comment on above: Performed By: #### C BC #### [facility] [address] [place] [address] Dr. Carol Anaya Erythrocyte distribution width (RBC) [Ratio] 12.9 % Normal 11.0-15.0 [facility] Comment on above: Performed By: #### C BC #### [facility] [address] [place] [address] Dr. Carol Anaya Hematocrit (Bld) [Volume fraction] 43.3 % Normal 42.0-54.0 [facility] Comment on above: Performed By: #### C BC #### [facility] [address] [place] [address] Dr. Carol Anaya Hemoglobin (Bld) [Mass/Vol] 14.3 g/dL Normal 14.0-18.0 [facility] Comment on above: Performed By: #### C BC #### [facility] [address] [place] [address] Dr. Carol Anaya IG # 0.02 10e3/ul Normal 0.00-0.03 [facility] Comment on above: Performed By: #### C BC #### [facility] [address] [place] [address] Dr. Carol Anaya IG % 0.3 % Normal 0.0-0.5 [facility] Comment on above: Performed By: #### C BC #### [facility] [address] [place] [address] Dr. Carol Anaya LYMPH # 1.4 103/ul Normal 1.2-3.8 [facility] Comment on above: Performed By: #### C BC #### [facility] [address] [place] [address] Dr. Carol Anaya Lymphocytes/100 WBC (Bld) 24.9 % Normal 20.5-60.0 [facility] Comment on above: Performed By: #### C BC #### [facility] [address] [place] [address] Dr. Carol Anaya MANUAL DIFF REQ NO [facility] Comment on above: Performed By: #### C BC #### [facility] [address] [place] [address] Dr. Carol Anaya MCH (RBC) [Entitic mass] 27.7 pg Normal 25.9-34.0 [facility] Comment on above: Performed By: #### C BC #### [facility] [address] [place] [address] Dr. Carol Anaya MCHC (RBC) [Mass/Vol] 33.0 g/dL Normal 29.9-35.2 [facility] Comment on above: Performed By: #### C BC #### [facility] [address] [place] [address] Dr. Carol Anaya MCV (RBC) [Entitic vol] 83.9 fL Normal 80.0-94.0 [facility] Comment on above: Performed By: #### C BC #### [facility] [address] [place] [address] Dr. Carol Anaya MONO # 0.6 103/ul Normal 0.3-0.8 [facility] Comment on above: Performed By: #### C BC #### [facility] [address] [place] [address] Dr. Carol Anaya Monocytes/100 WBC (Bld) 9.8 % Normal 1.7-12.0 [facility] Comment on above: Performed By: #### C BC #### [facility] [address] [place] [address] Dr. Carol Anaya NEUT # 3.6 103/ul Normal 1.4-6.5 [facility] Comment on above: Performed By: #### C BC #### [facility] [address] [place] [address] Dr. Carol Anaya Neutrophils/100 WBC (Bld) 61.9 % Normal 43.0-75.0 [facility] Comment on above: Performed By: #### C BC #### [facility] [address] [place] [address] Dr. Carol Anaya Platelet mean volume (Bld) [Entitic vol] 8.3 fL Critically low 9.5-13.5 [facility] Comment on above: Performed By: #### C BC #### [facility] [address] [place] [address] Dr. Carol Anaya PLT 292 103/ul Normal 150-450 [facility] Comment on above: Performed By: #### C BC #### [facility] [address] [place] [address] Dr. Carol Anaya RBC 5.16 106/ul Normal 4.70-6.10 [facility] Comment on above: Performed By: #### C BC #### [facility] [address] [place] [address] Dr. Carol Anaya WBC 5.7 103/ul Normal 4.0-11.0 [facility] Comment on above: Performed By: #### C BC #### [facility] [address] [place] [address] Dr. Carol Anaya PROF CHEM 8 (BAS METB)on Anion gap [Moles/Vol] 9.4 mmol/L Normal [facility] Comment on above: Performed By: #### B MP #### [facility] [address] [place] [address] Dr. Carol Anaya Calcium [Mass/Vol] 9.8 mg/dL Normal 8.4-10.2 [facility] Comment on above: Performed By: #### B MP #### [facility] [address] [place] [address] Dr. Carol Anaya Chloride [Moles/Vol] 100 mmol/L Normal 98-107 [facility] Comment on above: Performed By: #### B MP #### [facility] [address] [place] [address] Dr. Carol Anaya CO2 [Moles/Vol] 30.3 mmol/L Critically high 22.0-30.0 [facility] Comment on above: Performed By: #### B MP #### [facility] [address] [place] [address] Dr. Carol Anaya Creatinine [Mass/Vol] 0.79 mg/dL Normal 0.66-1.25 [facility] Comment on above: Performed By: #### B MP #### [facility] [address] [place] [address] Dr. Carol Anaya EGFR-AF SWEDISH >60 Normal >=60 [facility] Comment on above: Performed By: #### B MP #### [facility] [address] [place] [address] Dr. Carol Anaya EGFR-NON AF SWEDISH >60 Normal >=60 [facility] Comment on above: Performed By: #### B MP #### [facility] [address] [place] [address] Dr. Carol Anaya Glucose [Mass/Vol] 99 mg/dL Normal 74-106 [facility] Comment on above: Performed By: #### B MP #### [facility] [address] [place] [address] Dr. Carol Anaya Potassium [Moles/Vol] 3.7 mmol/L Normal 3.4-5.0 [facility] Comment on above: Performed By: #### B MP #### [facility] [address] [place] [address] Dr. Carol Anaya Sodium [Moles/Vol] 136 mmol/L Critically low 137-145 [facility] Comment on above: Performed By: #### B MP #### [facility] [address] [place] [address] Dr. Carol Anaay Urea nitrogen [Mass/Vol] 20.0 mg/dL Normal 9.0-20.0 [facility] Comment on above: Performed By: #### B MP #### [facility] [address] [place] [address] Dr. Carol Anaya Urea nitrogen/Creatinin e [Mass ratio] 25.3 mg/mg Normal [facility] Comment on above: Performed By: #### B MP #### [facility] [address] [place] [address] Dr. Carol Anaya SURGICAL PATHOLOGYon 018 SURGICAL PATHOLOGY Specimen #: [id number] Physician: BREANA SAHU M.D. ___FINAL DIAGNOSISSoft tissue, [...] and Soft Tissue Pathology Consultation Service at [phone] with questions or if additional follow-up information becomesavailable regarding this patient. This case was reviewed in conjunctionwith the bone and soft tissue pathology fellow, Greg Hu MD. ALEXEY/MILY/maikel 03/19/18Jose M Thomas M.D.(Electronic Signature) __SPECIMEN SUBMITTEDA: 1 SLIDE AND 1 BLOCK ([id number]) CLINICAL DATANone provided.Patient ID #: Date of Report: 03/19/2018Date of Procedure: 03/16/2018Date of Receipt: 03/16/2018Submitted by: BREANA SAHU M.D.Location: Diagnostic interpretation performed at [facility], [address] [place] [address]. Normal [facility] Comment on above: Performed [...] linear increased signal in the cord from [id number] T11. This is not seen on the [...] by:KERRI Schofieldigned by:Anthony Garrett MD02/06/18inal result Normal [facility] Progress Noteon 02-06-2018 HIM IP Note OR Scientific Helper Normal [facility] Vital Signs Date Time Vital Sign Value Performing Clinician Faci lity 06-18-2024 16:43-0400 Body height 177.8 cm MD Casey Gonzales Work Phone: [facility] 06-18-2024 16:43-0400 Body mass index (BMI) [Ratio] 21.7 kg/m2 MD Casey Gonzales Work Phone: [facility] 06-18-2024 16:43-0400 Body temperature 99.3 [degF] MD Casey Gonzales Work Phone: [facility] 06-18-2024 16:43-0400 Body weight 68.49 kg MD Casey Gonzales Work Phone: [facility] 06-18-2024 16:43-0400 Heart rate 71 /min MD Casey Gonzales Work Phone: [facility] 06-18-2024 16:43-0400 Respiratory rate 19 /min MD Casey Gonzales Work Phone: [facility] 06-18-2024 16:43-0400 SaO2% (BldA) [Mass fraction] 99 % MD Casey Gonzales Work Phone: [facility] 05-09-2024 15:25-0400 Diastolic blood pressure 65 mm[Hg] MD Casey Gonzales Work Phone: [facility] 05-09-2024 15:25-0400 Heart rate 67 /min MD Casey Gonzales Work Phone: [facility] 05-09-2024 15:25-0400 Respiratory rate 16 /min MD Casey Gonzales Work Phone: [facility] 05-09-2024 15:25-0400 SaO2% (BldA) [Mass fraction] 98 % MD Casey Gonzales Work Phone: [facility] 05-09-2024 15:25-0400 Systolic blood pressure 108 mm[Hg] MD Casey Gonzales Work Phone: [facility] 05-09-2024 14:40-0400 Inhaled oxygen flow rate 6 L/min MD Casey Gonzales Work Phone: [facility] 05-09-2024 12:32-0400 Body height 177.8 cm MD Casey Gonzales Work Phone: [facility] 05-09-2024 12:32-0400 Body mass index (BMI) [Ratio] 20.9 kg/m2 MD Casey Gonzales Work Phone: [facility] 05-09-2024 12:32-0400 Body weight 66.1 kg MD Casey Gonzales Work Phone: [facility] 05-09-2024 11:49-0400 Body temperature 97.8 [degF] MD Casey Gonzales Work Phone: [facility] 02-26-2024 18:05-0400 Diastolic blood pressure 68 mm[Hg] MD Casey Gonzales Work Phone: [facility] 02-26-2024 18:05-0400 Heart rate 72 /min MD Casey Gonzales Work Phone: [facility] 02-26-2024 18:05-0400 Respiratory rate 16 /min MD Casey Gonzales Work Phone: [facility] 02-26-2024 18:05-0400 SaO2% (BldA) [Mass fraction] 100 % MD Casey Gonzales Work Phone: [facility] 02-26-2024 18:05-0400 Systolic blood pressure 110 mm[Hg] MD Casey Gonzales Work Phone: [facility] 02-26-2024 17:35-0400 Inhaled oxygen flow rate 6 L/min MD Casey Gonzales Work Phone: [facility] 02-26-2024 16:39-0400 Body height 177.8 cm MD Casey Gonzales Work Phone: [facility] 02-26-2024 16:39-0400 Body mass index (BMI) [Ratio] 20 kg/m2 MD Casey Gonzales Work Phone: [facility] 02-26-2024 16:39-0400 Body weight 63.5 kg MD Casey Gonzales Work Phone: [facility] 02-26-2024 12:51-0400 Body temperature 98.4 [degF] MD Casey Gonzales Work Phone: [facility] 01-24-2024 12:20-0400 Body height 177.8 cm [facility] 01-24-2024 12:20-0400 Body mass index (BMI) [Ratio] 20.2 kg/m2 [facility] 01-24-2024 12:20-0400 Body weight 63.95 kg [facility] 01-24-2024 12:20-0400 Diastolic blood pressure 24 mm[Hg] [facility] [facility]24 12:20-0400 Heart rate 107 /min [facility] 01-24-2024 12:20-0400 Respiratory rate 16 /min [facility] 01-24-2024 12:20-0400 SaO2% (BldA) [Mass fraction] 98 % [facility] 01-24-2024 12:20-0400 Systolic blood pressure 128 mm[Hg] [facility] Encounters Encounter Date Encounter Type Care Provider Facility Start: 10-07-2024 ambulatory Casey Gonzales Facility :[facility] Start: 06-18-2024 End: 06-18-2024 ambulatory MD Casey Gonzales Work Phone: [facility] Work Phone: Start: 06-18-2024 End: 06-18-2024 Patient encounter procedure MD Casey Gonzales Work Phone: [facility] Work Phone: Start: 05-21-2024 End: 05-21-2024 ambulatory BROOKLYN ROLAND V Not Available Start: 05-09-2024 End: 05-09-2024 Admission to same day surgery center MD Casey Gonzales Work Phone: [facility] [place] Start: 05-09-2024 End: 05-09-2024 ambulatory MD Casey Gonzales Work Phone: [facility] Work Phone: Start: 05-03-2024 End: 05-03-2024 Departed Referred MD Casey Gonzales Work Phone: [facility] Work Phone: Start: 05-03-2024 End: 05-03-2024 Patient encounter procedure MD Casey Gonzales Work Phone: [facility] Work Phone: Start: 05-03-2024 End: 05-03-2024 ambulatory MD Casey Gonzales Work Phone: [facility] Work Phone: Start: 04-09-2024 End: 04-09-2024 ambulatory BROOKLYN ROLAND V Not Available Start: 04-09-2024 End: 04-09-2024 ambulatory Casey Gonzales Facility:[facility] Start: 03-19-2024 End: 03-19-2024 ambulatory BROOKLYN ROLAND V Not Available Start: 03-12-2024 End: 03-12-2024 ambulatory Casey Gonzales Facility:[facility] Start: 03-01-2024 End: 03-01-2024 ambulatory BROOKLYN ROLAND V Not Available Start: 02-28-2024 ambulatory Hank AGUIAR Facility : [place] Start: 02-26-2024 End: 02-26-2024 Admission to same day surgery center MD Casey Gonzales Work Phone: [facility] [place] Start: 02-26-2024 End: 02-26-2024 ambulatory MD Casey Gonzales Work Phone: [facility] Work Phone: Start: 02-23-2024 End: 02-23-2024 ambulatory BROOKLYN ROLAND V Not Available Start: 02-21-2024 End: 02-21-2024 ambulatory LEONEL VEGA Facility:[facility] Start: 02-21-2024 End: 02-21-2024 Patient encounter procedure KARO VEGA [facility] Start: 02-13-2024 ambulatory Casey Gonzales Facility:[facility] Start: 02-13-2024 End: 02-13-2024 ambulatory Casey Gonzales Facility:[facility] [place] Start: 02-12-2024 ambulatory Casey Gonzales Facility:[facility] [place] Start: 02-09-2024 ambulatory Casey Gonzales Facility:[facility] Start: 02-09-2024 End: 02-09-2024 ambulatory PA-C KARO VEGA Facility:[facility] Start: 02-09-2024 End: 02-09-2024 Patient encounter procedure KARO VEGA [facility] Start: 01-24-2024 End: 01-24-2024 ambulatory [facility] Work Phone: Start: 01-24-2024 End: 01-24-2024 Patient encounter procedure [facility] Work Phone: Start: 08-17-2023 End: 08-20-2023 ambulatory MIKHAIL TANGCOMB [facility] Start: 08-04-2023 ambulatory DARRION Pino [facility] Start: 07-25-2023 End: 07-25-2023 Emergency department patient visit [facility] Start: 06-22-2023 End: 06-22-2023 Emergency department patient visit [facility] Start: 08-20-2022 End: 08-20-[address] NONE LISTED REQUEST Facility:[facility] Start: 07-21-2022 End: 07-21-[address] NONE LISTED REQUEST Facility:[facility] Start: 12-08-2021 End: 12-08-2021 ambulatory GAIL MOLINA . Facility:[facility] Start: 12-07-2021 Encounter for preprocedural laboratory examination GAIL MOLINA . [facility] Start: 12-04-2021 End: 12-05-2021 ambulatory GAIL MOLINA . Facility: Start: 12-04-2021 End: 12-05-2021 Encounter for preprocedural laboratory examination GAIL MOLINA . Facility: Start: 12-03-2021 Encounter for preprocedural cardiovascular examination GAIL MOLINA . [facility] Start: 12-03-2021 Encounter for preprocedural laboratory examination GAIL MOLINA . [facility] Start: 12-01-2021 End: 12-02-2021 ambulatory GAIL MOLINA . Facility: Start: 12-01-2021 End: 12-02-2021 Encounter for preprocedural cardiovascular examination GAIL MOLINA . Facility: Start: 02-06-2018 End: 02-09-2018 Ambulatory NARGIS VERONICA [facility] Procedures Date Procedure Procedure Detail Performing Clinician Start: 05-09-2024 Excision of cyst MD Jose E Gonzales Work Phone: Start: 02-26-2024 Excision of cyst MD Jose E Gonzales Work Phone: Start: 02-06-2018 Mri spinal canal tho racic w/o contrast matrl NARGIS VERONICA Arthroscopy of knee KARO VEGA Cholecystectomy KARO ROSE Cyst of epididymis (disorder) KARO VEGA Plan of Treatment Date Care Activity Detail Author Start: 05-09-[address] [facility] Start: 05-09-[address] [facility] Start: 02-26-2024 End: 02-26-2024 [facility] Patient Education [facility] Work Phone: Patient referral [facility] Work Phone: Payers Date Payer Category Payer Self-pay 2023 Unknown [id number] 2016 Unknown [id number] 1993 Unknown [id number] 2.16.84 [id number] 1993 Unknown [id number] 2.16.84 0.1.487504.3.579.2.593 1993 Unknown [id number] 2.16.84 0.1.012580.3.579.2.593 1993 Unknown [id number] 2.16.84 0.1.542257.3.579.2.593 1993 Unknown [id number] 2.16.84 0.1.198670.3.579.2.593 1993 Unknown [id number] 2.16.8 40.1.798538.3.579.2.174 1993 Unknown [id number] 2.16.8 40.1.592828.3.579.2.174 1993 Unknown [id number] 2.16.8 40.1.479010.3.579.2.174 1993 Unknown [id number] 2.16.8 40.1.636915.3.579.2.174 1993 Unknown [id number] 2.16.8 40.1.501854.3.579.2.727 1993 Unknown [id number] 2.16.8 40.1.821866.3.579.2.727 1993 Unknown [id number] 2.16.8 40.1.906625.3.579.2.727 1993 Unknown [id number] 2.16.8 40.1.811370.3.579.2.727 1993 Unknown [id number] 2.16.8 40.1.848202.3.579.2.727 1993 Unknown [id number] 2.16.8 40.1.071410.3.579.2.727 1993 Unknown [id number] 2.16.8 40.1.467148.3.579.2.727 1993 Unknown [id number] 2.16.84 0.1.011860.3.579.2.9 1993 Unknown [id number] 2.16.84 0.1.903803.3.579.2.9 1993 Unknown [id number] 2.16.84 0.1.467944.3.579.2.1258 1993 Unknown [id number] 2.16.84 0.1.165080.3.579.2.1258 1993 Unknown [id number] 2.16.84 0.1.711296.3.579.2.1259 1959 Unknown [id number] 1959 Unknown [id number] Unknown [id number] 2.16.8 40.1.261781.3.579.2.531 Unknown [id number] 2.16.8 40.1.618621.3.579.2.531 Unknown [id number] 2.16.8 40.1.855977.3.579.2.531 Social History Date Type Detail Facility Start: 01-24-2024 Tobacco smoking stat [facility] Never smoked tobacco (finding) [facility] Start: 1995 Sex Assigned At Male [facility] Start: 02-09-2024 End: 05-09-2024 Tobacco smoking status Ex-smoker (finding) [facility] Tobacco smoking status Never [facility] Sex Assigned At Male [facility] Goals Date Patient Goal Desired Activity /State Functional Status Date Assessment Result Facility 02-09-2024 Functional Status N/A [facility] Hospital Discharge instructions 02-09-2024 Note Date & [...] provider. Document Revised: 09/07/2020 Document Reviewed: 09/07/2020 [employer] Patient Education 2022 [employer]. Follow Up Care 01/23/2024 11:31:03 With:KARO VEGA PA-C, HARLEYL Address: [place] [address] [phone] When: Unknown Comments:f/u pending imaging and lab results [facility] Evaluation + Plan note Radiology Note Date & Type Note Facility Evaluation + Plan note Future Appointments Appointment Date:02/23/2024 01:00:00 PM Scheduled Provider: Location:.[facility] Appointment Type:US Prostate/Scrotum (FT) Future Scheduled TestsUS Scrotum (Contents) 02/23/24 [facility] Evaluation + Plan note Note Date & Type Note Facility Evaluation + Plan note Future Appointments Appointment Date:02/28/2024 03:20:00 PM Scheduled Provider:Hank AGUIAR MD Location:[facility] Appointment Type:[place] [address] Appointment Date:03/12/2024 08:30:00 AM Scheduled Provider:Casey Gonzales MD Location:[facility]3] Appointment Type:[facility] Evaluation note Note Date & Type Note Facility Evaluation note No assessment information availa [facility] Work Phone: Evaluation note Note Date & Type Note Facility Evaluation note Diagnosis Onset Date Abscess of right groin nonea ctive [facility] Work Phone: Hospital course Narrative Note Date & Type Note Facility Hospital course Narrative No data available for this section [facility] Hospital Discharge instructions Note Date & Type Note Facility Hospital Discharge instructions No data available for this section [facility] Hospital Discharge instructions Note Date & Type Note Facility Hospital Discharge instructions Additional Instructions No driving if taking narcotic pain medication [facility] Work Phone: Progress note Note Date & Type Note Facility Progress note No data available for this section [facility] Summary Purpose Family History No Family History Records Found Relationship Condition Age at Onset Recorded Date/T alicia Not Specified Hypertension Unknown Relationship Condition Age at Onset Recorded Date/T alicia mother Hypertension Unknown Advance Directives No Advanced Directives Records Found Advance Directive Response Recorded Date/ Time Advance Directives No January 23 12:15pm Advance Directive Response Recorded Date/ Time Advance Directives No February 22 4:29pm Chief Complaint and Reason for Visit Chief Complaint Cyst Chief Complaint Cyst enlarged inguinal lymph node Reason for Visit Abscess of right sergio in Chief Complaint enlarged inguinal ly mph node Left Hip Mass Chief Complaint enlarged inguinal ly mph node Left Hip Mass Left Hip Mass Chief Complaint Left Hip Mass Left Hip Mass Ear pain Additional Source Comments (unrecognized sect ion and content) No Status Records FoundNo Status Records FoundNo Status Records FoundNo Status Records FoundNo Status Records FoundNo Status Records FoundNo Status Records Found INFORMATION SOURCE (unrecogn ized section and content) DATE CREATED AUTHOR 04/03/2018 [facility] DATE CREATED AUTHOR AUTHOR'S ORGANIZ ATION 04/05/2018 [facility] DATE CREATED AUTHOR AUTHOR'S ORGANIZ ATION 11/02/2022 [facility] DATE CREATED AUTHOR AUTHOR'S ORGANIZ ATION 08/26/2023 [facility] DATE CREATED AUTHOR AUTHOR'S ORGANIZ ATION 04/11/2024 [facility] DATE CREATED AUTHOR AUTHOR'S ORGANIZ ATION 05/23/2024 [facility] EPIC DATE CREATED AUTHOR AUTHOR'S ORGANIZ ATION 06/22/2024 [facility] Care Teams (unrecognized sec tion and content) Team Status: Active Member Role Status Dates PHYSICIAN NO FAMILY Primary Care Provider Active Team Status: Inactive Member Role Status Dates PHYSICIAN NO FAMILY Primary Care Provider Active Start: January 24, 2024 End: January 24, 2024 LAKHWINDER Tolentino Attending Provider Active S tart: January 24, 2024 End: January 24, 2024 Team Status: Active Member Role Status Dates Casey Gonzales MD Primary Care Provider Active Team Status: Inactive Member Role Status Dates Brooklyn Roland MD Attending Provider Active Sta rt: February 26, 2024 End: February 26, 2024 Casey Gonzales MD Primary Care Provider Active Start: February 26, 2024 End: February 26, 2024 Team Status: Inactive Member Role Status Dates Casey Gonzales MD Primary Care Provider Active Start: May 03, 2024 End: May 03, 2024 Brooklyn Roland MD Attending Provider Active Sta rt: May 03, 2024 End: May 03, 2024 Team Status: Inactive Member Role Status Dates Casey Gonzales MD Primary Care Provider Active Start: May 09, 2024 End: May 09, 2024 Brooklyn Roland MD Attending Provider Active Sta rt: May 09, 2024 End: May 09, 2024 Team Status: Inactive Member Role Status Dates Casey Gonzales MD Primary Care Provider Active Start: June 18, 2024 End: June 18, 2024 Ammy Pierre APRN Attending Provider Active Start: June 18, 2024 End: June 18, 2024 Goals (unrecognized section and content) Goals may be documented in a n alternate section No data available for this section No data available for this section [...] BE BASED ON THE PRIMARY CLINICAL RECORDS. [employer] [facility]. provides no warranty or guarantee of the accuracy or completeness of information in this document.
--- NOTE | 2024-06-27 17:45 | ED.CHESTPAI1 ---
HPI - Chest Pain General Chief Complaint: Chest Pain Stated Complaint: CHEST PAIN Time Seen by Provider: 06/27/24 16:59 Source: patient Mode of arrival: walk-in Limitations: no limitations History of Present Illness HPI narrative: 29-year-old male presents here with chief complaint of chest pain. He denies radiation of pain. He states the pain began earlier swelling while he was working. Patient assisted to her history of rapid heartbeat as a child and was placed on medication he does not recall the name of the medication. He is not currently taking any medicines. He denies any nausea shortness of breath. He denies any worsening pain with palpation of the chest. Related Data Allergies Allergy/AdvReac Type Severity Reaction Status Date / Time No Known Drug Allergies Allergy Verified 06/27/24 16:59 Review of Systems ROS Narrative All Systems are negative except as noted/marked.All systems reviewed and otherwise negative [facility] Medical History (Updated 06/27/24 @ 18:14 by Alycia France) Tachycardia ?R00.0 - Tachycardia, unspecified (ICD-10) Surgical History (Updated 06/27/24 @ 17:00 by Mary Lindquist RN) History of back surgery ?Z98.890 - Other specified postprocedural states (ICD-10) Social History Little interest or pleasure in doing things: not at all Feeling down, depressed, or hopeless: not at all Exam Narrative Exam Narrative: Nurses note and vital signs reviewed and patient is not hypoxic. General: The patient appears well and in no apparent distress. Patient is resting comfortably on cart. Skin: Warm, dry, no pallor noted. There is no rash noted. Head: Normocephalic, atraumatic Eye: Normal conjunctiva, no drainage, EOMI. PERRL Ears, Nose, Mouth, and Throat: oral mucosa is moist. Nares patent. Mouth without vesicles. Ear canals patent. Tm's without Erythema Cardiovascular: Regular Rate and Rhythm Respiratory: Patient is in no distress, no accessory muscle use, lungs are clear to auscultation, no wheezing, rales or rhonchi Back: non-tender, no CVA tenderness bilaterally to percussion. GI: Normal bowel sounds, no tenderness to palpation, no masses appreciated. No rebound, guarding, or rigidity noted. Musculoskeletal: The patient has no evidence of calf tenderness, no pitting edema, symmetrical pulses noted bilaterally Neurological: A&O x4, normal speech Psychiatric: Cooperative Constitutional Vital Signs, click to edit/add: Last Vital Signs Temp 98.5 F 06/27/24 16:55 Pulse 84 06/27/24 18:10 Resp 21 H 06/27/24 18:10 BP 143/89 H 06/27/24 16:56 Pulse Ox 100 06/27/24 17:30 O2 Del Method Room Air 06/27/24 16:55 Course Vital Signs Vital signs: Vital Signs Temperature 98.5 F 06/27/24 16:55 Pulse Rate 107 H 06/27/24 16:55 Respiratory Rate 16 06/27/24 16:55 Blood Pressure 143/89 H 06/27/24 16:55 Pulse Oximetry 99 06/27/24 16:55 Oxygen Delivery Method Room Air 06/27/24 16:55 Temperature 98.5 F 06/27/24 16:55 Pulse Rate 84 06/27/24 18:10 Respiratory Rate 21 H 06/27/24 18:10 Blood Pressure 143/89 H 06/27/24 16:56 Pulse Oximetry 100 06/27/24 17:30 Oxygen Delivery Method Room Air 06/27/24 16:55 MDM - Chest Pain MDM Narrative Medical decision making narrative: Patient presents here to the emergency room chief complaint of chest pain. He is refusing to have any blood work done. States he cannot afford any blood work. He states he just wanted medication to make his heart stop beating fast. His heart rate is anywhere from 10 7-1 15-1 20. He denies any pain at this time. He denies shortness of breath. I explained to him we cannot give him any medication for his heart as we do not know what is causing his symptoms at this time. EKG shows normal sinus tachycardia. Patient will be given fluids and Toradol. He is encouraged to have blood work done but is refusing. Chest x-ray is also within normal limits. Better after fluids and Toradol was given. Patient stable to be discharged to home. Did refuse any lab work. I did instruct him that if he develops any worsening symptoms need to return or follow-up with his primary care physician. Patient verbalizes today agrees with plan of care. He knows that I cannot completely rule out any cardiac event without any lab work. Patient will be discharged home diagnosis chest pain. due to Age and EKG, heart score of 0 but do not have troponin to do complete score, I have low suspicion of any cardiac event at this time. He will follow-up with his primary care physician for further evaluation Differential Diagnosis Differential diagnosis: Likely stable angina, atypical chest pain and costochondritis Medical Records Data Attestation: I reviewed the patient's medical records. Imaging Data Chest x-ray: Radiologist's impression: ITS Impressions Chest X-Ray 06/27/24 16:59 Impression: No radiographic evidence of acute cardiopulmonary process. Electronically authenticated by: GAETANO HOGUE Date: 06/27/2024 17:27 ECG Data Attestation: ?I have reviewed the pertinent ECG results. Interpretation: 1704 + tachycardia with a rate of 109 bpm PA interval 134 ms QRS duration 84 ms, no ST depression or elevation Heart Score History: Slightly/Non-Suspicious ECG: Normal Age: <45 years Risk Factors: No Risk Factors Discharge Plan Discharge Chief Complaint: Chest Pain Clinical Impression: Chest pain Patient Disposition: Home, Self-Care Time of Disposition Decision: 18:13 Condition: Good Print Language: Belarusian Instructions: Chest Pain (ED) Referrals: CASEY CARPIO [Primary Care Provider] - 1 week ()
[2024-06-27] MEDS: 0.9 % SODIUM CHLORIDE 1,000 ML 1000 ML IV (17:48)
[2024-06-27] MEDS: KETOROLAC TROMETHAMINE 30 MG/ML VIAL IVP (17:49)
== END 2024-06-27 18:36 | disposition home or self-care (01) ==
PROVIDERS: Emergency Provider Emergency Medicine; PCP Family Medicine
DX: R07.9 Chest pain, unspecified (principal)
CPT/HCPCS: 71046; 80053; 84484; 93005; 96374; 99285; J1885

== ENCOUNTER 2025-03-28 18:28 | Emergency (ER) | payer OTHER, SELFPAY ==
--- OUTSIDE RECORDS SUMMARY | 2023-10-06 04:00 | XMS_ITS ---
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 Name Role Phone Kennedy Motley Unavailable [phone] Allergies No Known Allergies REASON FOR VISIT LEFT KNEE Social History Tobacco Use: Social History Observation Description Date Details (start date - stop date) Unknown Smoking History Question Answer Notes Smoking Status Uses tobacco in other forms Encounters Encounter Location Date Provider Diagnosis [facility] [address] [place] [address] 10/06/2023 Kennedy Motley Left anterior knee pain M25.562 Assessments Encounter Date Diagnosis (ICD Code) Assessment Notes Treatment Notes Treatment Clinical Notes Section Notes 10/06/2023 Left anterior knee pain (ICD-10 - M25.562) 10/06/2023 Other I reviewed home exercises with the patient. We will return him to work without restrictions. He will follow-up here on an as-needed basis. Import medication Plan Of Treatment Treatment Notes Assessment Notes Other I reviewed home exercises with the patient. We will return him to work without restrictions. He will follow-up here on an as-needed basis. Import medication Pending Test Test Name Order Date Work Slip Return to Work/ Full Duty 09/16 Next Appt Details Follow Up: prn, Reason: Progress Notes * UMER HERNANDEZDOB:1995 (28 yo M)Acc No.[id number]:10/06/2023 Patient: UMER BREEN Provider: J Luis Motley MD :1995 A ge:28 Y S ex:Male Date:10/06/2023 Address: [address], [id number] Subjective: * Chief Complaints: * L EFT KNEE * HPI: G eneral Follow Up Information: Patient presents today for follow-up of his left patellar dislocation doing well. He ended up not going to therapy. He is feeling well and would like to return to work. * Medical History: * Surgical History: N o Surgical History documented. * Family History: N o Family History documented.. * Social History: S moking History S moking Status U ses tobacco in other forms. * Medications: N one * Allergies: N .K.D.A.no[Allergies Verified] Objective: * Examination: G eneral examination: L eft knee has no effusion. Negative patellar apprehension. Full range of motion. X -ray Imaging Studies: M RI Imaging Studies: Assessment: * Assessment: 1. L eft anterior knee pain - M25.562 (Primary) Plan: * Treatment: 2. O thers Notes: I reviewed home exercises with the patient. We will return him to work without restrictions. He will follow-up here on an as-needed basis. Import medication * Procedure Codes: * Follow Up: p rn * Images: * Sign off status: Completed true * Provider: J Luis Motley MD Date: 12/07/2022 Generated for Cindi bagley/Angie/Yangitting on: 0 03/28/2025 06:34 PM EDT History and Physical Notes * HPI (History of Present Illness) Category Sub-Category Detail Notes Category Not es General Follow Up Information Patient presents tod ay for follow-up of his left patellar dislocation doing well. He ended up not going to therapy. He is feeling well and would like to return to work. Examination Category Sub-Category Detail Notes Category Not es General examination Left kne e has no effusion. Negative patellar apprehension. Full range of motion. X-ray Imaging Studies MRI Imaging Studies
--- OUTSIDE RECORDS SUMMARY | 2025-03-20 20:32 | XMS_ITS | Encounter Summary ---
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 with past steroid taper. Upper and lower scope coming up inAugust. Exam findings as follows: Constitutional: Awake and alert HENT: Head normocephalic and atraumatic Eyes: conjunctiva unremarkable Cardiovascular: Heart rate regular Pulmonary: Easy work of breathing, speaking full sentences Abdominal: Flat and non-distended , generalized tenderness Skin: Warm and dry Musculoskeletal: Moving all extremities spontaneously Patient has imaging and clinical picture of concern of Crohn's flare-up. Patient's pain still not under good control. Decision making with the patient was done at bedside including admission for further care for steroid therapy along with pain control. Patient is in agreement with the plan. Please note that portions of this note were completed with a voice recognition program. Efforts were made to edit the dictations but occasionally words are mis-transcribed. Ammy Peñaloza APRN-MEDICAID BUSINESS ANALYST 03/20/252043 Joann Souza 03/20/252051 Joann Souza 03/20/252123 Joann Souza 03/20/252128 Thelma Mckeon DO 03/24/25 1730 documented in this encounter Plan of Treatment Upcoming Encounters Date Type Department Care Team (Latest Contact Info) Description 04/10/2025 8:30 AM EDT Hospital Encounter [facility] - Endoscopy [address] [place] [address], [address] [place] [address] Elen Rodarte MD [address] [place] [address], [address] [place] [address] 04/10/2025 8:30 AM EDT - 04/10/2025 9:00 AM EDT Surgery [facility] - Endoscopy [address] [place] [address], [address] [place] [address] Elen Rodarte MD [address] [place] [address], [address] [place] [address] ESOPHAGOGASTRODUODENOSCOPY DIAGNOSTIC [31606 (CPT )] 04/23/2025 11:00 AM EDT Infusion [facility] Infusion [address] [place] [address] [address] [place] [address] 05/20/2025 9:15 AM EDT Office Visit [facility], A Department of [address] [place] [address] Elen Rodarte MD [address] [facility], [address] [place] [address] 05/21/2025 11:00 AM EDT Infusion [facility] Infusion [address] [facility] [address] [place] [address] Scheduled Procedures Name Priority Associated Diagnoses Date/Ti me ESOPHAGOGASTRODUODENOSCOPY DIAGNOSTIC Crohn's disease of both small and large intestine without complication ([facility]) [K50.80] - Primary 04/10/2025 8:30 AM EDT COLONOSCOPY DIAGNOSTIC / SCREENING Crohn's disease of both small and large intestine without complication ([facility]) [K50.80] - Primary 04/10/2025 8:30 AM EDT documented as of this encounter Goals Goal Patient Goal Type Associated Problems Recent Progress Patient-Stated? Author Return home General Yes Lexie Frausto LSW Note: Evaluation of progress towards goal: In progress: Return home, self care. documented as of this encounter Procedures Procedure Name Priority Date/Time Associated Diagnosis Comments POCT NURSING URINE MACROSCOPIC UA Routine 03/21/2025 1:27 AM EDT ER EXTRA URINE MARBLE STAT 03/21/2025 1:12 AM EDT ER EXTRA URINE CULTURE STAT 1:12 AM EDT ER EXTRA URINE STAT 03/21/2025 1:[address] ABDOMEN AND PELVIS W CONT STAT 03/20/2025 10:00 PM EDT EXTRA TUBES BLUE TOP Routine 03/20/2025 8:51 PM EDT EXTRA TUBES Routine 03/20/2025 8:51 PM EDT ERYTHROCYTE SEDIMENTATION RATE (ESR) Add-On 03/20/2025 8:50 PM EDT LACTATE W/ REFLEX STAT 03/20/2025 8:5 0 PM EDT CBC WITH AUTO DIFFERENTIAL STAT 03/20/2025 8:50 PM EDT C-REACTIVE PROTEIN Add-On 03/20/2025 8: 50 PM EDT MAGNESIUM STAT 03/20/2025 8:50 PM EDT LIPASE STAT 03/20/2025 8:50 PM EDT COMPREHENSIVE METABOLIC PANEL STAT 03/20/2025 8:50 PM EDT documented in this encounter Results * POCT Nursing Urine Macroscopic UA (03/21/2025 1:27 AM EDT) POC Urine Specific [place] 1.010 1.010, 1.015, 1.020, 1.025 03/21/2025 1:22 AM EDT [facility] POC Urine Leukocyte Esterase Negative Negative 03/21/2025 1:22 AM EDT [facility] POC Urine Nitrite Negative Negative 03/21/2025 1:22 AM EDT [facility] POC Urine pH 6.0 5.0, 6.0, 6.5, 7.0, 7.5, 8.0, 8.5, 5.5 03/21/2025 1:22 AM EDT [facility] POC Urine Protein Negative Negative 03/21/2025 1:22 AM EDT [facility] POC Urine Glucose Negative Negative 03/21/2025 1:22 AM EDT [facility] POC Urine Ketones Negative Negative 03/21/2025 1:22 AM EDT [facility] POC Urine Urobilinogen 0.2 E.U./dL 03/21/2025 1:22 AM EDT [facility] POC Urine Bilirubin Negative Negative 03/21/2025 1:22 AM EDT [facility] POC Urine Blood/HGB Negative Negative 03/21/2025 1:22 AM EDT [facility] Urine 03/21/2025 1:27 AM EDT 03/21/2025 1:22 AM EDT us Thelma Mckeon DO POINT OF CARE TEST ORDERABLE S Final Result Performing Organization Address City/[facility]/ZIP Co de Phone Number [address] [place] [address], [place] * Extra Urine [place] (03/21/2025 1:12 AM EDT) Extra Tube Auto Resulted 03/21/2025 3:02 AM EDT [facility] Urine Urine specimen collection, clean catch / Unknown 03/21/2025 1:12 AM EDT 03/21/2025 1:22 AM EDT us Ammy Peñaloza COMMUNITY DEVELOPMENT SPECIALIST-MEDICAID BUSINESS ANALYST URINE ORDERABLES Final Res ult Performing Organization Address [facility] Co de Phone Number [address] [place] [address], [place] * Extra Urine Culture (03/21/2025 1:12 AM EDT) Extra Tube Auto Resulted 03/21/2025 3:02 AM EDT [facility] Urine Urine specimen collection, clean catch / Unknown 03/21/2025 1:12 AM EDT 03/21/2025 1:22 AM EDT us Ammy Peñaloza COMMUNITY DEVELOPMENT SPECIALIST-MEDICAID BUSINESS ANALYST URINE ORDERABLES Final Res ult Performing Organization Address City/[facility] Co de Phone Number [address] [place] [address], [place] * Extra Urine (03/21/2025 1:12 AM EDT) Extra Tube Auto Resulted 03/21/2025 3:02 AM EDT [facility] Urine Urine specimen collection, clean catch / Unknown 03/21/2025 1:12 AM EDT 03/21/2025 1:22 AM EDT us Ammy Peñaloza COMMUNITY DEVELOPMENT SPECIALIST-MEDICAID BUSINESS ANALYST URINE ORDERABLES Final Res ult [facility] [address] [place] [address], [place] * CT abdomen and pelvis with contrast (03/20/2025 10:00 PM EDT) Anatomical Region Laterality Modality Body, Abdomen, Body Covera N/A Compu venkatesh Tomography 03/20/2025 10:1 5 PM EDT Narrative 03/20/2025 10:20 PM EDT History: diffuse abd pain, hx of crohns dz Exam/Technique: CT images of abdomen and pelvis were obtained following intravenous contrast injection. CT does automated exposure control was utilized. All CT scans at this facility use dose modulation, iterative reconstruction, and/or weight based dosing when appropriate to reduce radiation dose to as low as reasonably achievable. Comparison: CT abdomen pelvis 01/12/2025 Findings: Lung bases are unremarkable. Liver spleen and pancreas are grossly unremarkable. Both adrenal glands and both kidneys are unremarkable. Urinary bladder is decompressed and prostate gland is unremarkable. Large bowel loops are grossly unremarkable with moderate fecal burden. There are multiple circumferential mucosal wall thickening of small bowel loops likely enteritis and consistent with patient's history of inflammatory bowel disease. There is no bowel obstruction and no gross free peritoneal air or fluid. Portal and mesenteric vessels are patent. There is no gross acute osseous abnormality. IMPRESSION: Multiple inflamed small bowel loops with no bowel obstruction. Otherwise, unremarkable exam Finalized by King Nam MD on 03/20/2025 10:20 PM Procedure Note King Nam MD - 03/20/2025 History: diffuse abd pain, hx of crohns dz Exam/Technique: CT images of abdomen and pelvis were obtained following intravenouscontrast injection. CT does automated exposure control was utilized. AllCT scans at this facility use dose modulation, iterative reconstruction,and/or weight based dosing when appropriate to reduce radiation dose to aslow as reasonably achievable. Comparison: CT abdomen pelvis 01/12/2025 Findings: Lung bases are unremarkable. Liver spleen and pancreas are grossly unremarkable. Both adrenal glandsand both kidneys are unremarkable. Urinary bladder is decompressed and prostate gland is unremarkable. Large bowel loops are grossly unremarkable with moderate fecal burden.There are multiple circumferential mucosal wall thickening of small bowelloops likely enteritis and consistent with patient's history ofinflammatory bowel disease. There is no bowel obstruction and no grossfree peritoneal air or fluid. Portal and mesenteric vessels are patent. There is no gross acute osseous abnormality. IMPRESSION: Multiple inflamed small bowel loops with no bowel obstruction. Otherwise,unremarkable exam Finalized by King Nam MD on 03/20/2025 10:20 PM us Thelma Mckeon DO IMG CT ORDERABLES Final Resu lt * Light Blue Top (03/20/2025 8:51 PM EDT) Extra Tube Auto Resulted 03/20/2025 10:01 PM EDT [facility] Blood Venous blood / Unknown 03/20/2025 8:51 PM EDT 03/20/2025 8:58 PM EDT us Thelma Mckeon DO LAB BLOOD ORDERABLES Final R esult [facility] [address] [place] [address], [place] * (ABNORMAL) Erythrocyte Sedimentation Rate (ESR) (03/20/2025 8:50 PM EDT) ESR, Erythrocyte Sedimentation Rate 31(H) 0 - 15 mm/h 03/21/2025 10:33 AM EDT [facility] Blood Venous blood / Unknown 03/20/2025 8:50 PM EDT 03/20/2025 8:57 PM EDT us Thelma Mckeon DO LAB BLOOD ORDERABLES Final R esult Performing Organization Address City/[facility]/ZIP Co de Phone Number [facility] [address] [place] [address], [place] [phone] * C-reactive protein (03/20/2025 8:50 PM EDT) C REACTIVE PROTEIN 0.6 <=0.7 mg/dL 03/20/2025 9:58 PM EDT [facility] Blood Venous blood / Unknown 03/20/2025 8:50 PM EDT 03/20/2025 8:57 PM EDT us Thelma Mckeon DO LAB BLOOD ORDERABLES Final R esult Performing Organization Address [facility] Co de Phone Number [address] [place] [address], [place] * (ABNORMAL) Magnesium (03/20/2025 8:50 PM EDT) MAGNESIUM 1.7(L) 1.8 - 2.6 mg/dL 03/20/2025 9:17 PM EDT [facility] Blood Venous blood / Unknown 03/20/2025 8:50 PM EDT 03/20/2025 8:57 PM EDT us Ammy Peñaloza COMMUNITY DEVELOPMENT SPECIALIST-MEDICAID BUSINESS ANALYST LAB BLOOD ORDERABLES Final Result Performing Organization Address City/[facility] Co de Phone Number [address] [place] [address], [place] * Lipase (03/20/2025 8:50 PM EDT) LIPASE 38 17 - 40 U/L 03/20/2025 9:14 PM EDT [facility] Blood Venous blood / Unknown 03/20/2025 8:50 PM EDT 03/20/2025 8:57 PM EDT us Ammy Peñaloza COMMUNITY DEVELOPMENT SPECIALIST-MEDICAID BUSINESS ANALYST LAB BLOOD ORDERABLES Final Result Performing Organization Address City/[facility]/ZIP Co de Phone Number [address] [place] [address], [place] * Lactate w/ Reflex (03/20/2025 8:50 PM EDT) LACTATE W/REFLEX 1.2 0.4 - 2.0 mmol/L 03/20/2025 9:18 PM EDT [facility] Blood Venous blood / Unknown 03/20/2025 8:50 PM EDT 03/20/2025 8:58 PM EDT Narrative [facility] - 03/20/2025 9:18 PM EDT Result did not trigger repeat Lactate, re-order if needed. Ammy Peñaloza COMMUNITY DEVELOPMENT SPECIALIST-MEDICAID BUSINESS ANALYST LAB BLOOD ORDERABLES Final Result Performing Organization Address [facility] Co de Phone Number [address] [place] [address], [place] * (ABNORMAL) Comprehensive metabolic panel (03/20/2025 8:50 PM EDT) SODIUM 137 134 - 146 mmol/L 03/20/2025 9:17 PM EDT [facility] POTASSIUM 3.0(L) 3.5 - 5.0 mmol/L 03/20/2025 9:17 PM EDT [facility] CHLORIDE 105 98 - 109 mmol/L 03/20/2025 9:17 PM EDT [facility] CARBON DIOXIDE 27 22 - 32 mmol/L 03/20/2025 9:17 PM EDT [facility] ANION GAP 5 5 - 15 mmol/L 03/20/2025 9:17 PM EDT [facility] BLOOD UREA NITROGEN 22 5 - 23 mg/dL 03/20/2025 9:17 PM EDT [facility] CREATININE 0.62(L) 0.70 - 1.20 mg/dL 03/20/2025 9:17 PM EDT [facility] Comment:METHOD TRACEABLE TO IDMS STANDARD GLUCOSE 121(H) 65 - 99 mg/dL 03/20/2025 9:17 PM EDT [facility] CALCIUM 9.3 8.5 - 10.5 mg/dL 03/20/2025 9:17 PM EDT [facility] TOTAL PROTEIN 7.7 6.0 - 8.0 g/dL 03/20/2025 9:17 PM EDT [facility] ALBUMIN 3.9 3.2 - 5.3 g/dL 03/20/2025 9:17 PM EDT [facility] ALKALINE PHOSPHATASE 73 39 - 130 U/L 03/20/2025 9:17 PM EDT [facility] AST 21 <=41 U/L 03/20/2025 9:17 PM EDT [facility] ALT 16 <=40 U/L 03/20/2025 9:17 PM EDT [facility] BILIRUBIN,TOTAL 0.3 0.3 - 1.2 mg/dL 03/20/2025 9:17 PM EDT [facility] EGFR Non-Race Dependent >90 >=60 ml/min/1.7 3sq.m 03/20/2025 9:17 PM EDT [facility] Comment: eGFR not reported due to non-numeric value for Creatinine. Reported eGFR is based on the CKD-EPI 2020 equation that does not use a race coefficient. Blood Venous blood / Unknown 03/20/2025 8:50 PM EDT 03/20/2025 8:57 PM EDT us Ammy Peñaloza COMMUNITY DEVELOPMENT SPECIALIST-MEDICAID BUSINESS ANALYST LAB BLOOD ORDERABLES Final Result [facility] [address] [place] [address], * (ABNORMAL) CBC auto differential (03/20/2025 8:50 PM EDT) WBC 7.7 4 - 11 x10E9/L 03/20/2025 9:10 PM EDT [facility] RBC Count 4.60 4.1 - 5.7 X10E12/L 03/20/2025 9:10 PM EDT [facility] Hemoglobin 13.3 13 - 17 g/dL 03/20/2025 9:10 PM EDT [facility] Hematocrit 39.6 39 - 50 % 03/20/2025 9:10 PM EDT [facility] MCV 86 80 - 100 fL 03/20/2025 9:10 PM EDT [facility] MCH 29.0 27 - 34 pg 03/20/2025 9:10 PM EDT [facility] MCHC 33.6 32 - 36 g/dL 03/20/2025 9:10 PM EDT [facility] RDW 13.3 11.5 - 15 % 03/20/2025 9:10 PM EDT [facility] Platelet Count 324 150 - 450 X10E9/L 03/20/2025 9:10 PM EDT [facility] MPV 6.9(L) 7 - 12 fL 03/20/2025 9:10 PM EDT [facility] Neutrophils Relative 55.0 % 03/20/2025 9:10 PM EDT [facility] Lymphocytes Relative 36.8 % 03/20/2025 9:10 PM EDT [facility] Monocytes Relative 6.8 % 03/20/2025 9:10 PM EDT [facility] Eosinophils Relative 0.5 % 03/20/2025 9:10 PM EDT [facility] Basophils Relative 0.9 % 03/20/2025 9:10 PM EDT [facility] Neutrophils Absolute (A) 4.2 1.5 - 6.6 10*3/uL 03/20/2025 9:10 PM EDT [facility] Lymphocytes Absolute 2.8 1.0 - 3.5 10*3/uL 03/20/2025 9:10 PM EDT [facility] Monocytes Absolute 0.5 0.0 - 0.9 10*3/uL 03/20/2025 9:10 PM EDT [facility] Eosinophils Absolute 0.0 0.0 - 0.4 10*3/uL 03/20/2025 9:10 PM EDT [facility] Basophils Absolute 0.1 0.0 - 0.2 10*3/uL 03/20/2025 9:10 PM EDT [facility] Differential Type AUTOMATED DIFFERENTIAL 03/20/2025 9:10 PM EDT [facility] Blood Venous blood / Unknown 03/20/2025 8:50 PM EDT 03/20/2025 8:57 PM EDT us Ammy Peñaloza COMMUNITY DEVELOPMENT SPECIALIST-MEDICAID BUSINESS ANALYST LAB BLOOD ORDERABLES Final Result Performing Organization Address City/State/[facility] Co de Phone Number [facility] [address] [place] [address], documented in this encounter Visit Diagnoses Diagnosis Crohn's disease of colon without complication (CMS-HCC)- Primary Crohn's disease of colon without complication (CMS-HCC) Intractable pain Hypokalemia Hypopotassemia Hypomagnesemia Disorders of magnesium metabolism documented in this encounter Admitting Diagnoses Diagnosis Crohn's disease of colon without complication (CMS-HCC) documented in this encounter Administered Medications Inactive Administered Medications - up to 3 most recent administrations Medication Order MAR Action Action Date Dose Rate Site acetaminophen (TYLENOL) tablet 650 mg 650 mg, oral, Every 4 hours PRN, headaches, mild pain - pain scale 1-3, Temperature greater than 38.3 C, Starting on Mon03/21/25 at 0124, [Warning: Total Acetaminophen not to exceed more than 4 grams (4000 mg) in 24 hours] alum-mag hydroxide-simeth (MAALOX) 200-200-20 mg/5 mL suspension 30 mL 30 mL, oral, 4 times daily after meals and at bedtime as needed, dyspepsia, Starting on Mon03/21/25 at 0124, Look-alike/sound-alike medication - verify indication for use. Shake well., Indications: dyspepsiaIndications:dyspepsia dextrose (GLUTOSE) 40 % gel 15 g 15 g, oral, As needed, low blood sugar, blood glucose less than 70 mg/dL, Starting on Mon03/21/25 at 0124, If patient conscious and taking PO. If blood glucose is not greater than 70 mg/dL after initial treatment, repeat treatment. dextrose 5 % (D5W) infusion 100 mL/hr, intravenous, Continuous PRN, blood glucose less than 70 mg/dL, Starting on Mon03/21/25 at 0124, Use immediately following dextrose 50% or glucagon treatment for patients who are unconscious or NPO. Contact prescriber for additional orders. If blood glucose is not greater than 70 mg/dL after initial treatment, repeat treatment. dextrose 50 % in water (D50W) 50% solution 25 mL 25 mL, intravenous, As needed, low blood sugar, blood glucose less than 70 mg/dL and unconscious or NPO with IV access, Starting on Mon03/21/25 at 0124, Push over 1-3 minutes STAT. If conscious and not NPO, immediately follow with meal tray or high protein (7 grams) snack if tray not available. If NPO, initiate 5% dextrose in water at 100 mL/hr and contact prescriber for additional orders. If blood glucose is not greater than 70 mg/dL after initial treatment, repeat treatment. VESICANT (RED) Warning: HYPERTONIC solution. glucagon HCL injection 1 mg 1 mg, intramuscular, As needed, low blood sugar, blood glucose less than 70 mg/dL and unconscious or NPO without IV access., Starting on Mon03/21/25 at 0124, If conscious and not NPO, immediately follow with meal tray or high protein (7Grams) snack if tray not available. If NPO, initiate IV 5% Dextrose/Water at 100 mL/hr and contact prescriber for additional orders. If blood glucose is not greater than 70 mg/dL after initial treatment, repeat treatment. HYDROmorphone (PF) (DILAUDID) injection 0.5 mg 0.5 mg, intravenous, Every 4 hours PRN, severe pain - pain scale 7-10, Starting on Mon03/21/25 at 0135, If IV push, administer over over 2 to 3 minutes. Look-alike/sound-alike medication - verify indication for use. Given 03/21/2025 10:04 AM EDT 0.5 mg Given 03/21/2025 6:02 AM EDT 0.5 mg Given 03/21/2025 1:47 AM EDT 0.5 mg iohexoL (OMNIPAQUE) 300 mg iodine/mL 100 mL 100 mL, intravenous, Once in imaging, contrast, Starting on Jazz 03/20/25 at 2156, For 1 dose, VESICANT (RED) Given 03/20/2025 9:59 PM EDT 100 mL ketorolac (TORADOL) injection 30 mg 30 mg, intravenous, Once, On Jazz 03/20/25 at 2140, For 1 dose, Look-alike/sound-alike medication - verify indication for use. Duration of therapy is not to exceed 5 days. Maximum recommended dose + 120mg/24 hours. Given 03/20/2025 9:40 PM EDT 30 mg magnesium sulfate IVPB 2000 mg/50 mL in iso-osmotic water (40 mg/mL premix) 2,000 mg, intravenous, at 25 mL/hr, Administer over 120 Minutes, As needed, Magnesium level 1.7 to 1.9 mg/dL, or Ionized Magnesium level 0.45 to 0.5 mmol/L., Starting on Mon03/21/25 at 0124, Recheck magnesium level 4 hours after infusion complete. With each magnesium result continue the replacement orders as needed. New Bag 03/21/2025 9:27 AM EDT 2,000 mg 25 mL/hr magnesium sulfate IVPB 4000 mg/100 mL in iso-osmotic water (40 mg/mL premix) 4,000 mg, intravenous, at 25 mL/hr, Administer over 240 Minutes, As needed, Magnesium level 1.6 mg/dL or less, or Ionized Magnesium level 0.44 mmol/L or less, Starting on Mon03/21/25 at 0124, Recheck magnesium level 4 hours after infusion complete. With each magnesium result continue the replacement orders as needed. methylPREDNISolone sod suc(PF) (Solu-MEDROL) injection 125 mg 125 mg, intravenous, Once, On Jazz 03/20/25 at 2140, For 1 dose, May alter blood glucose or insulin requirements. Look-alike/sound-alike medication - verify indication for use. Given 03/20/2025 9:42 PM EDT 125 mg methylPREDNISolone sod suc(PF) (Solu-MEDROL) injection 60 mg 60 mg, intravenous, Every 8 hours scheduled, First dose on Mon03/21/25 at 0600, May alter blood glucose or insulin requirements. Look-alike/sound-alike medication - verify indication for use. Given 03/21/2025 6:05 AM EDT 60 mg morphine injection 4 mg 4 mg, intravenous, Once, On Jazz 03/20/25 at 2044, For 1 dose, Look-alike/sound-alike medication - verify indication for use. Given 03/20/2025 9:03 PM EDT 4 mg morphine injection 4 mg 4 mg, intravenous, Once, On Jazz 03/20/25 at 2310, For 1 dose, Look-alike/sound-alike medication - verify indication for use. Given 03/20/2025 11:27 PM EDT 4 mg ondansetron (PF) (ZOFRAN) injection 4 mg 4 mg, intravenous, Once, On Jazz 03/20/25 at 2044, For 1 dose, Intravenous administration preferred to be given over 2-5 minutes. Given 03/20/2025 8:51 PM EDT 4 mg ondansetron (PF) (ZOFRAN) injection 4 mg 4 mg, intravenous, Every 4 hours PRN, nausea, vomiting, Starting on Mon03/21/25 at 0124, Intravenous administration preferred to be given over 2-5 minutes. potassium chloride (KAYCIEL) 20 mEq/15 mL solution 30-40 mEq 30-40 mEq, oral, As needed, Potassium Supplementation, Starting on Mon03/21/25 at 0124, Progress to oral potassium replacement when patient tolerating oral intake. If dose administered, recheck potassium level 4 hours after last dose. For potassium level 3.4 to 3.8 mmol/L and GFR 30 mL/min or greater=30 mEq. For potassium level 3.1 to 3.3 mmol/L and GFR 30 mL/min or greater=40 mEq. For potassium level 3 mmol/L or less and GFR 30 mL/min or greater=50 mEq. Must dilute before use - Mix in 3-8 ounces of water or juice before administration When administering in feeding tube, flush before and after per policy and monitor potassium levels potassium chloride (KLOR-CON M 20) CR tablet 30-40 mEq 30-40 mEq, oral, As needed, Potassium Supplementation, Starting on Mon03/21/25 at 0124, Progress to oral potassium replacement when patient tolerating oral intake. If dose administered, recheck potassium level 4 hours after last dose. For potassium level 3.4 to 3.8 mmol/L and GFR 30 mL/min or greater=30 mEq. For potassium level 3.1 to 3.3 mmol/L and GFR 30 mL/min or greater=40 mEq. For potassium level 3 mmol/L or less and GFR 30 mL/min or greater=50 mEq. Do not crush or chew. Given 03/21/2025 10:01 AM EDT 40 mEq potassium chloride IVPB 10 mEq/100 mL in water (0.1 mEq/mL premix) 10 mEq, intravenous, at 100 mL/hr, Administer over 60 Minutes, As needed, POTASSIUM REPLACEMENT, Starting on Mon03/21/25 at 0124, IV if unable to use oral/enteral with the current dosing strategies Potassium level 3 mmol/L or less administer Potassium Chloride 50 mEq Potassium level 3.1 to 3.3 mmol/L administer Potassium Chloride 40 mEq Potassium level 3.4 to 3.8 mmol/L administer Potassium Chloride 30 mEq Use central line when applicable. Recheck potassium level 1 hour after total IVPB infusion complete, With each potassium result continue the replacement orders as needed VESICANT (YELLOW) Infuse each 10 mEq over a minimum of 1 hour. sennosides-docusate sodium (SENOKOT-S) 8.6-50 mg 1 tablet 1 tablet, oral, Every 12 hours PRN, constipation, Starting on Mon03/21/25 at 0124 sodium chloride 0.9 % bolus 1,000 mL, intravenous, at 1,935.5 mL/hr, Administer over 31 Minutes, Once, On Jazz 03/20/25 at 2140, For 1 dose New Bag 03/20/2025 9:39 PM EDT 1,000 mL 1935.5 mL/hr sodium chloride 0.9 % bolus 1,000 mL, intravenous, at 984 mL/hr, Administer over 61 Minutes, Once, On Mon03/21/25 at 0730, For 1 dose New Bag 03/21/2025 7:45 AM EDT 1,000 mL 984 mL/hr sodium chloride 0.9 % flush 10 mL 10 mL, intravenous, As needed, line care, Starting on Jazz 03/20/25 at 2156 Given 03/20/2025 9:59 PM EDT 10 mL sodium chloride 0.9 % flush bag 25 mL, intravenous, at 100 mL/hr, Administer over 15 Minutes, As needed, line care, line care after IVPB administration, Starting on Mon03/21/25 at 0124 sodium chloride 0.9 % infusion 20 mL/hr, intravenous, Continuous PRN, to maintain patency of lines, Starting on Mon03/21/25 at 0124 sodium chloride 0.9 % infusion 125 mL/hr, intravenous, Continuous, Starting on Mon03/21/25 at 0125, For 1 day New Bag 03/21/2025 8:49 AM EDT 125 mL/hr 125 mL/hr New Bag 03/21/2025 1:46 AM EDT 125 mL/hr 125 mL/hr sodium chloride 0.9 % radiology injection 80 mL, intravenous, Once in imaging, pre/post contrast, Starting on Mon03/20/25 at 2156, For 1 dose Given 03/20/2025 9:59 PM EDT 80 mL documented in this encounter Active and Recently Administered Medications Times are shown in EDT. Scheduled Medication Order 03/19/2025 03/20/2025 03/21/2025 ketorolac (TORADOL) injection 30 mg (COMPLETED) 30 mg, intravenous, Once, On Jazz 03/20/25 at 2140, For 1 dose, Look-alike/sound-alike medication - verify indication for use. Duration of therapy is not to exceed 5 days. Maximum recommended dose + 120mg/24 hours. 2139 (Given - Provider: Nani Chapman RN) methylPREDNISolone sod suc(PF) (Solu-MEDROL) injection 125 mg (COMPLETED) 125 mg, intravenous, Once, On Jazz 03/20/25 at 2140, For 1 dose, May alter blood glucose or insulin requirements. Look-alike/sound-alike medication - verify indication for use. 2141 (Given - Provider: Nani Chapman RN) methylPREDNISolone sod suc(PF) (Solu-MEDROL) injection 60 mg 60 mg, intravenous, Every 8 hours scheduled, First dose on Mon03/21/25 at 0600, May alter blood glucose or insulin requirements. Look-alike/sound-alike medication - verify indication for use. 604 (Given - Provid er: Nani Chapman RN) morphine injection 4 mg (COMPLETED) 4 mg, intravenous, Once, On Jazz 03/20/25 at 204, For 1 dose, Look-alike/sound-alike medication - verify indication for use. 2102 (Given - Provider: Nani Chapman RN) morphine injection 4 mg (COMPLETED) 4 mg, intravenous, Once, On Jazz 03/20/25 at 2310, For 1 dose, Look-alike/sound-alike medication - verify indication for use. 2326 (Given - Provider: Nani Chapman RN) ondansetron (PF) (ZOFRAN) injection 4 mg (COMPLETED) 4 mg, intravenous, Once, On Jazz 03/20/25 at 2044, For 1 dose, Intravenous administration preferred to be given over 2-5 minutes. 2050 (Given - Provider: Nani Chapman RN) sodium chloride 0.9 % bolus (COMPLETED) 1,000 mL, intravenous, at 1,935.5 mL/hr, Administer over 31 Minutes, Once, On Jazz 03/20/25 at 2140, For 1 dose 2138 (New Bag - Provider: Nani Chapman RN)230 (Stop Bag - Provider: Willa Parra RN) sodium chloride 0.9 % bolus (COMPLETED) 1,000 mL, intravenous, at 984 mL/hr, Administer over 61 Minutes, Once, On Mon03/21/25 at 0730, For 1 dose 0745 (New Bag - Provider: Nancy Sears RN)0849 (Stop Bag - Provider: Nancy Sears RN) Continuous Medication Order 03/19/2025 03/20/2025 03/21/2025 sodium chloride 0.9 % infusion 125 mL/hr, intravenous, Continuous, Starting on Mon03/21/25 at 0125, For 1 day 0146 (New Bag - Prov ider: Nani Chapman RN)0743 (Stop Bag - Provider: aNncy Sears, RN)0849 (New Bag - Provider: Nancy Sears, RN)1047 (Continue to Other Facility/Home/Admission - Provider: Nancy Orion, RN) PRN Medication Order 03/19/2025 03/20/2025 03/21/2025 acetaminophen (TYLENOL) tablet 650 mg 650 mg, oral, Every 4 hours PRN, headaches, mild pain - pain scale 1-3, Temperature greater than 38.3 C, Starting on Mon03/21/25 at 0124, [Warning: Total Acetaminophen not to exceed more than 4 grams (4000 mg) in 24 hours] alum-mag hydroxide-simeth (MAALOX) 200-200-20 mg/5 mL suspension 30 mL 30 mL, oral, 4 times daily after meals and at bedtime as needed, dyspepsia, Starting on Mon03/21/25 at 0124, Look-alike/sound-alike medication - verify indication for use. Shake well., Indications: dyspepsia dextrose (GLUTOSE) 40 % gel 15 g 15 g, oral, As needed, low blood sugar, blood glucose less than 70 mg/dL, Starting on Mon03/21/25 at 0124, If patient conscious and taking PO. If blood glucose is not greater than 70 mg/dL after initial treatment, repeat treatment. dextrose 5 % (D5W) infusion 100 mL/hr, intravenous, Continuous PRN, blood glucose less than 70 mg/dL, Starting on Mon03/21/25 at 0124, Use immediately following dextrose 50% or glucagon treatment for patients who are unconscious or NPO. Contact prescriber for additional orders. If blood glucose is not greater than 70 mg/dL after initial treatment, repeat treatment. dextrose 50 % in water (D50W) 50% solution 25 mL 25 mL, intravenous, As needed, low blood sugar, blood glucose less than 70 mg/dL and unconscious or NPO with IV access, Starting on Mon03/21/25 at 0124, Push over 1-3 minutes STAT. If conscious and not NPO, immediately follow with meal tray or high protein (7 grams) snack if tray not available. If NPO, initiate 5% dextrose in water at 100 mL/hr and contact prescriber for additional orders. If blood glucose is not greater than 70 mg/dL after initial treatment, repeat treatment. VESICANT (RED) Warning: HYPERTONIC solution. glucagon HCL injection 1 mg 1 mg, intramuscular, As needed, low blood sugar, blood glucose less than 70 mg/dL and unconscious or NPO without IV access., Starting on Mon03/21/25 at 0124, If conscious and not NPO, immediately follow with meal tray or high protein (7Grams) snack if tray not available. If NPO, initiate IV 5% Dextrose/Water at 100 mL/hr and contact prescriber for additional orders. If blood glucose is not greater than 70 mg/dL after initial treatment, repeat treatment. HYDROmorphone (PF) (DILAUDID) injection 0.5 mg 0.5 mg, intravenous, Every 4 hours PRN, severe pain - pain scale 7-10, Starting on Mon03/21/25 at 0135, If IV push, administer over over 2 to 3 minutes. Look-alike/sound-alike medication - verify indication for use. 0147 (Given - Provid er: Nani Chapman RN)0602 (Given - Provider: Nani Chapman RN)1004 (Given - Provider: Nancy Sears RN) iohexoL (OMNIPAQUE) 300 mg iodine/mL 100 mL (COMPLETED) 100 mL, intravenous, Once in imaging, contrast, Starting on Jazz 03/20/25 at 2156, For 1 dose, VESICANT (RED) 2159 (Given - Provider: Maureen Stanton) magnesium sulfate IVPB 2000 mg/50 mL in iso-osmotic water (40 mg/mL premix) 2,000 mg, intravenous, at 25 mL/hr, Administer over 120 Minutes, As needed, Magnesium level 1.7 to 1.9 mg/dL, or Ionized Magnesium level 0.45 to 0.5 mmol/L., Starting on Mon03/21/25 at 0124, Recheck magnesium level 4 hours after infusion complete. With each magnesium result continue the replacement orders as needed. 0927 (New Bag - Provider: Nancy Sears, RN)1127 (Continue to Other Facility/Home/Admission - Provider: Nancy Sears RN - Comment: provider ok'd infusion to be stopped for transport) magnesium sulfate IVPB 4000 mg/100 mL in iso-osmotic water (40 mg/mL premix) 4,000 mg, intravenous, at 25 mL/hr, Administer over 240 Minutes, As needed, Magnesium level 1.6 mg/dL or less, or Ionized Magnesium level 0.44 mmol/L or less, Starting on Mon03/21/25 at 0124, Recheck magnesium level 4 hours after infusion complete. With each magnesium result continue the replacement orders as needed. ondansetron (PF) (ZOFRAN) injection 4 mg 4 mg, intravenous, Every 4 hours PRN, nausea, vomiting, Starting on Mon03/21/25 at 0124, Intravenous administration preferred to be given over 2-5 minutes. potassium chloride (KAYCIEL) 20 mEq/15 mL solution 30-40 mEq(Linked Group 1) 30-40 mEq, oral, As needed, Potassium Supplementation, Starting on Mon03/21/25 at 0124, Progress to oral potassium replacement when patient tolerating oral intake. If dose administered, recheck potassium level 4 hours after last dose. For potassium level 3.4 to 3.8 mmol/L and GFR 30 mL/min or greater=30 mEq. For potassium level 3.1 to 3.3 mmol/L and GFR 30 mL/min or greater=40 mEq. For potassium level 3 mmol/L or less and GFR 30 mL/min or greater=50 mEq. Must dilute before use - Mix in 3-8 ounces of water or juice before administration When administering in feeding tube, flush before and after per policy and monitor potassium levels 1001 (See Alternativ e - Provider: Nancy Sears RN) potassium chloride (KLOR-CON M 20) CR tablet 30-40 mEq(Linked Group 1) 30-40 mEq, oral, As needed, Potassium Supplementation, Starting on Mon03/21/25 at 0124, Progress to oral potassium replacement when patient tolerating oral intake. If dose administered, recheck potassium level 4 hours after last dose. For potassium level 3.4 to 3.8 mmol/L and GFR 30 mL/min or greater=30 mEq. For potassium level 3.1 to 3.3 mmol/L and GFR 30 mL/min or greater=40 mEq. For potassium level 3 mmol/L or less and GFR 30 mL/min or greater=50 mEq. Do not crush or chew. 1001 (Given - Provid er: Nancy Sears RN - Comment: For potassium level 3 mmol/L or less and GFR 30 mL/min or greater=50 mEq. per order 50 MEQ given for K+ 3.0) potassium chloride IVPB 10 mEq/100 mL in water (0.1 mEq/mL premix)(Linked Group 1) 10 mEq, intravenous, at 100 mL/hr, Administer over 60 Minutes, As needed, POTASSIUM REPLACEMENT, Starting on Mon03/21/25 at 0124, IV if unable to use oral/enteral with the current dosing strategies Potassium level 3 mmol/L or less administer Potassium Chloride 50 mEq Potassium level 3.1 to 3.3 mmol/L administer Potassium Chloride 40 mEq Potassium level 3.4 to 3.8 mmol/L administer Potassium Chloride 30 mEq Use central line when applicable. Recheck potassium level 1 hour after total IVPB infusion complete, With each potassium result continue the replacement orders as needed VESICANT (YELLOW) Infuse each 10 mEq over a minimum of 1 hour. 1001 (See Alternativ e - Provider: Nancy Sears RN) sennosides-docusate sodium (SENOKOT-S) 8.6-50 mg 1 tablet 1 tablet, oral, Every 12 hours PRN, constipation, Starting on Mon03/21/25 at 0124 sodium chloride 0.9 % flush 10 mL 10 mL, intravenous, As needed, line care, Starting on Jazz 03/20/25 at 2156 215 (Given - Provider: Maureen Stanton) sodium chloride 0.9 % flush bag 25 mL, intravenous, at 100 mL/hr, Administer over 15 Minutes, As needed, line care, line care after IVPB administration, Starting on Mon03/21/25 at 0124 sodium chloride 0.9 % infusion 20 mL/hr, intravenous, Continuous PRN, to maintain patency of lines, Starting on Mon03/21/25 at 0124 sodium chloride 0.9 % radiology injection (COMPLETED) 80 mL, intravenous, Once in imaging, pre/post contrast, Starting on Jazz 03/20/25 at 2156, For 1 dose 2158 (Given - Provider: Maureen Stanton) Linked Groups Order Group 1: potassium chloride (KLOR-CON M 20) CR tablet 30-40 mEqJump to med 30-40 mEq, oral, As needed, Potassium Supplementation, Starting on Mon03/21/25 at 0124, Progress to oral potassium replacement when patient tolerating oral intake. If dose administered, recheck potassium level 4 hours after last dose. For potassium level 3.4 to 3.8 mmol/L and GFR 30 mL/min or greater=30 mEq. For potassium level 3.1 to 3.3 mmol/L and GFR 30 mL/min or greater=40 mEq. For potassium level 3 mmol/L or less and GFR 30 mL/min or greater=50 mEq. Do not crush or chew. Or potassium chloride (KAYCIEL) 20 mEq/15 mL solution 30-40 mEqJump to med 30-40 mEq, oral, As needed, Potassium Supplementation, Starting on Mon03/21/25 at 0124, Progress to oral potassium replacement when patient tolerating oral intake. If dose administered, recheck potassium level 4 hours after last dose. For potassium level 3.4 to 3.8 mmol/L and GFR 30 mL/min or greater=30 mEq. For potassium level 3.1 to 3.3 mmol/L and GFR 30 mL/min or greater=40 mEq. For potassium level 3 mmol/L or less and GFR 30 mL/min or greater=50 mEq. Must dilute before use - Mix in 3-8 ounces of water or juice before administration When administering in feeding tube, flush before and after per policy and monitor potassium levels Or potassium chloride IVPB 10 mEq/100 mL in water (0.1 mEq/mL premix)Jump to med 10 mEq, intravenous, at 100 mL/hr, Administer over 60 Minutes, As needed, POTASSIUM REPLACEMENT, Starting on Mon03/21/25 at 0124, IV if unable to use oral/enteral with the current dosing strategies Potassium level 3 mmol/L or less administer Potassium Chloride 50 mEq Potassium level 3.1 to 3.3 mmol/L administer Potassium Chloride 40 mEq Potassium level 3.4 to 3.8 mmol/L administer Potassium Chloride 30 mEq Use central line when applicable. Recheck potassium level 1 hour after total IVPB infusion complete, With each potassium result continue the replacement orders as needed VESICANT (YELLOW) Infuse each 10 mEq over a minimum of 1 hour. documented in this encounter Additional Health Concerns Assessment Noted Time PHQ-9 Depression Total Score: 3 07/15/20 24 3:19 PM EDT documented as of this encounter Care Teams Infusion Rn Relationship Specialty Start Date End Date Casey Carpio MD [address] [place] [address] PCP - General Family Medicine 03/09/25 documented as of this encounter
--- OUTSIDE RECORDS SUMMARY | 2025-03-21 11:52 | XMS_ITS | Encounter Summary ---
Author Organization [facility] tem Address [id number] [address] [place] [address] Care Team Providers Care Pre Press Operator Name Role Phone Casey Carpio MD Primary Care Provider Reason for Visit * Auth/Cert Specialty Diagnoses / Procedures Referred By Contsolitario t Referred To Contact Diagnoses Abdominal Pain Turner Quinones MD [address] [facility] [place] [address] Phone: tel: fax: Referral ID Status Reason Start Date Expiration Date Visits Re quested Visits Authorized [id number] 1 1 Encounter Details Date Type Department Care Team (Latest Contact Info) Description 03/21/2025 11:52 AM EDT - 03/24/2025 5:00 PM EDT Hospital Encounter [place] [id number] [address] [place] [phone] Turner Quinones MD [address] [facility] [place] [address] Peter Orellana MD [id number] [facility] [address] [place] [address] Discharge Disposition: Home Social History Tobacco Use Types Packs/Day Years Used Date Smoking Tobacco: Former Cigarettes Smokeless Tobacco: Former Alcohol Use Standard Drinks/Week Comments Not Currently 0 (1 standard drink = 0.6 oz pur e alcohol) Not very much [facility] Utilities Answer Date Recorded In the past 12 months has [employer], gas, oil, or water company threatened to [...] Sign Reading Time Taken Comments Blood Pressure 109/67 03/24/2025 11:00 AM EDT Pulse 87 03/24/2025 11:00 AM EDT Temperature 36.9 C (98.5 F) 03/24/2025 11:00 AM EDT Respiratory Rate 17 03/24/2025 11:00 AM EDT Oxygen Saturation 99% 03/24/2025 11:00 AM EDT Inhaled Oxygen Concentration - - Weight - - Height - - Body Mass Index - - documented in this encounter Functional Status documented as of this encounter Discharge Summaries * Peter Orellana MD - 03/24/2025 6:09 PM EDT Images from the original note were not included. [facility] - [address] [place] [phone] Hospital Medicine Discharge Summary Patient: William Summers Date of : 1995 [facility] Encounter date: 03/24/25 Hospital Day: 4 DATE OF ADMISSION: 03/21/2025 DATE OF DISCHARGE:03/24/2025 DISCHARGE DIAGNOSES Principal Problem: Crohn's colitis (CMS-HCC) Active Problems: Crohn's colitis, with intestinal obstruction ([facility]) Intractable abdominal pain Severe protein-calorie malnutrition Abdominal pain History of Crohn's disease Crohn's disease of colon without complication ([facility]) Poor appetite Hypoalbuminemia Leukocytosis Elevated glucose Cannabis abuse, episodic CONSULTANTS None PCP: CASEY CARPIO MD PROCEDURES None HOSPITAL COURSE SUMMARY Mr. Summers is a pleasant 29 year old patient who presented to us with complaints of abdominal pain and nausea with known Crohn's and follows with GI. Patient is in the midst of changing medications and having a difficult time. Patient was admitted for IV hydration and pain control. Placed on IV steroids initially NPO was able to start on diet. Patient took quite a while today to attempt to eat but addiment on going home. Patient was able to tolerate some lunch attending was called and was ok togo home this evening. Patient was from [place] but they did not have a bed so transferred to us at [place]. Patient did have electrolytes replaced while here as well. Stable to discharge home on tapering dose of steroids should closely follow up with his GI and keep appointments for scopes early May. Encouraged to quit smoking cannabis. Please note he should also continue to follow up with surgeon whom removed cysts to inguinal area bilaterally no current s/s of infection noted healing well. Did have production bow maker discuss good dietary habits with patient prior to discharge. Review of Systems Constitutional: Positive for decreased appetite, malaise/fatigue and weight loss. Negative for chills, diaphoresis and fever. HENT: Negative for congestion. Cardiovascular: Negative for chest pain, dyspnea on exertion, leg swelling and palpitations. Respiratory: Negative for cough, shortness of breath, sputum production and wheezing. Hematologic/Lymphatic: Bruises/bleeds easily. Skin: Negative for dry skin and poor wound healing. Musculoskeletal: Negative for arthritis, back pain and falls. Gastrointestinal: Positive for abdominal pain. Negative for bloating, dysphagia, nausea and vomiting. Genitourinary: Negative for bladder incontinence. Neurological: Positive for weakness. Negative for excessive daytime sleepiness, dizziness, paresthesias and tremors. Psychiatric/Behavioral: Negative for altered mental status and memory loss. Physical Exam Vitals (on RA) and nursing note reviewed. Constitutional: General: He is not in acute distress. Appearance: Normal appearance. He is ill-appearing (chronic). He is not toxic- appearing or diaphoretic. Comments: Flushed cheeks HENT: Head: Normocephalic and atraumatic. Nose: Nose normal. Mouth/Throat: Mouth: Mucous membranes are moist. Eyes: Pupils: Pupils are equal, round, and reactive to light. Cardiovascular: Rate and Rhythm: Normal rate and regular rhythm. Pulses: Normal pulses. Heart sounds: Normal heart sounds. Pulmonary: Effort: Pulmonary effort is normal. No respiratory distress. Breath sounds: Normal breath sounds. No wheezing or rales. Abdominal: General: Abdomen is flat. Bowel sounds are normal. There is no distension. Palpations: Abdomen is soft. Tenderness: There is abdominal tenderness (pain in upper epigastric area). Musculoskeletal: Cervical back: Normal range of motion and neck supple. Right lower leg: No edema. Left lower leg: No edema. Skin: General: Skin is warm and dry. Capillary Refill: Capillary refill takes 2 to 3 seconds. Comments: Bilateral groin incisions clean and dry signs of infection Neurological: Mental Status: He is alert and oriented to person, place, and time. Mental status is at baseline. Sensory: No sensory deficit. Motor: No weakness. Gait: Gait normal. Psychiatric: Mood and Affect: Mood normal. Behavior: Behavior normal. Thought Content: Thought content normal. Judgment: Judgment normal. Sepsis suspected, no-not clinically evident at this time. Code Status: Full Code Labs Recent Results (from the past 48 hours) Bedside Glucose *Place/Obtain serum glucose if >500 per glucometer. Collection Time: 03/22/25 6:30 PM Result Value Ref Range Bedside Glucose (POC) 150 (H) 65 - 99 mg/dL Bedside Glucose *Place/Obtain serum glucose if >500 per glucometer. Collection Time: 03/22/25 8:15 PM Result Value Ref Range Bedside Glucose (POC) 136 (H) 65 - 99 mg/dL Comprehensive metabolic panel Collection Time: 03/23/25 5:58 AM Result Value Ref Range SODIUM 134 134 - 146 mmol/L POTASSIUM 4.1 3.5 - 5.0 mmol/L CHLORIDE 103 98 - 109 mmol/L CARBON DIOXIDE 27 22 - 32 mmol/L ANION GAP 4 (L) 5 - 15 mmol/L BLOOD UREA NITROGEN 21 5 - 23 mg/dL CREATININE 0.62 (L) 0.70 - 1.20 mg/dL GLUCOSE 146 (H) 65 - 99 mg/dL CALCIUM 8.7 8.5 - 10.5 mg/dL TOTAL PROTEIN 6.2 6.0 - 8.0 g/dL ALBUMIN 3.0 (L) 3.2 - 5.3 g/dL ALKALINE PHOSPHATASE 63 39 - 130 U/L AST 17 <=41 U/L ALT 21 <=40 U/L BILIRUBIN,TOTAL 0.5 0.3 - 1.2 mg/dL EGFR Non-Race Dependent >90 >=60 ml/min/1.73sq.m Magnesium Collection Time: 03/23/25 5:58 AM Result Value Ref Range MAGNESIUM 1.9 1.8 - 2.6 mg/dL CBC auto differential Collection Time: 03/23/25 5:58 AM Result Value Ref Range WBC 11.7 (H) 4 - 11 x10E9/L RBC Count 4.33 4.1 - 5.7 X10E12/L Hemoglobin 12.5 (L) 13 - 17 g/dL Hematocrit 37.3 (L) 39 - 50 % MCV 86 80 - 100 fL MCH 28.8 27 - 34 pg MCHC 33.5 32 - 36 g/dL RDW 12.8 11.5 - 15 % Platelet Count 284 150 - 450 X10E9/L MPV 6.8 (L) 7 - 12 fL Neutrophils Relative 90.7 % Lymphocytes Relative 4.7 % Monocytes Relative 4.5 % Eosinophils Relative 0.0 % Basophils Relative 0.1 % Neutrophils Absolute (A) 10.6 (H) 1.5 - 6.6 10*3/uL Lymphocytes Absolute 0.5 (L) 1.0 - 3.5 10*3/uL Monocytes Absolute 0.5 0.0 - 0.9 10*3/uL Eosinophils Absolute 0.0 0.0 - 0.4 10*3/uL Basophils Absolute 0.0 0.0 - 0.2 10*3/uL Differential Type AUTOMATED DIFFERENTIAL Bedside Glucose *Place/Obtain serum glucose if >500 per glucometer. Collection Time: 03/23/25 7:40 AM Result Value Ref Range Bedside Glucose (POC) 134 (H) 65 - 99 mg/dL Bedside Glucose *Place/Obtain serum glucose if >500 per glucometer. Collection Time: 03/23/25 11:08 AM Result Value Ref Range Bedside Glucose (POC) 170 (H) 65 - 99 mg/dL Bedside Glucose *Place/Obtain serum glucose if >500 per glucometer. Collection Time: 03/23/25 9:22 PM Result Value Ref Range Bedside Glucose (POC) 130 (H) 65 - 99 mg/dL Comprehensive metabolic panel Collection Time: 03/24/25 5:30 AM Result Value Ref Range SODIUM 138 134 - 146 mmol/L POTASSIUM 3.8 3.5 - 5.0 mmol/L CHLORIDE 103 98 - 109 mmol/L CARBON DIOXIDE 29 22 - 32 mmol/L ANION GAP 6 5 - 15 mmol/L BLOOD UREA NITROGEN 19 5 - 23 mg/dL CREATININE 0.69 (L) 0.70 - 1.20 mg/dL GLUCOSE 122 (H) 65 - 99 mg/dL CALCIUM 9.0 8.5 - 10.5 mg/dL TOTAL PROTEIN 6.3 6.0 - 8.0 g/dL ALBUMIN 3.0 (L) 3.2 - 5.3 g/dL ALKALINE PHOSPHATASE 60 39 - 130 U/L AST 22 <=41 U/L ALT 29 <=40 U/L BILIRUBIN,TOTAL 0.6 0.3 - 1.2 mg/dL EGFR Non-Race Dependent >90 >=60 ml/min/1.73sq.m Magnesium Collection Time: 03/24/25 5:30 AM Result Value Ref Range MAGNESIUM 2.0 1.8 - 2.6 mg/dL CBC auto differential Collection Time: 03/24/25 5:30 AM Result Value Ref Range WBC 12.5 (H) 4 - 11 x10E9/L RBC Count 4.53 4.1 - 5.7 X10E12/L Hemoglobin 13.1 13 - 17 g/dL Hematocrit 38.8 (L) 39 - 50 % MCV 86 80 - 100 fL MCH 28.9 27 - 34 pg MCHC 33.7 32 - 36 g/dL RDW 13.0 11.5 - 15 % Platelet Count 316 150 - 450 X10E9/L MPV 7.2 7 - 12 fL Neutrophils Relative 91.5 % Lymphocytes Relative 5.2 % Monocytes Relative 3.2 % Eosinophils Relative 0.0 % Basophils Relative 0.1 % Neutrophils Absolute (A) 11.5 (H) 1.5 - 6.6 10*3/uL Lymphocytes Absolute 0.7 (L) 1.0 - 3.5 10*3/uL Monocytes Absolute 0.4 0.0 - 0.9 10*3/uL Eosinophils Absolute 0.0 0.0 - 0.4 10*3/uL Basophils Absolute 0.0 0.0 - 0.2 10*3/uL Differential Type AUTOMATED DIFFERENTIAL Hemoglobin A1c Collection Time: 03/24/25 5:30 AM Result Value Ref Range HEMOGLOBIN A1C 4.9 4.4 - 5.6 % EST. AVERAGE GLUCOSE 94 mg/dL Bedside Glucose *Place/Obtain serum glucose if >500 per glucometer. Collection Time: 03/24/25 7:10 AM Result Value Ref Range Bedside Glucose (POC) 125 (H) 65 - 99 mg/dL Bedside Glucose *Place/Obtain serum glucose if >500 per glucometer. Collection Time: 03/24/25 11:22 AM Result Value Ref Range Bedside Glucose (POC) 201 (H) 65 - 99 mg/dL Radiology CT abdomen and pelvis with contrast [...] Hank Harvey MD on 03/09/2025 3:43 PM DISCHARGE INSTRUCTION Disposition: Home Condition:Stable Activity: activity as tolerated Diet: Adult nutrition supplements Adult diet Regular Texture Follow up: CASEY CARPIO MD within 7-14 days. GI 1-2 weeks keep scopes scheduled Labs/Imaging/Pathology: Discharge Medications: Medication List PAUSE taking these medications Instructions Last Dose Given Next Dose Due adalimumab 40 mg/0.8 mL injection Wait to take this until your doctor or other care provider tells you to start again. Commonly known as: HUMIRA INJECT 0.8ML UNDER THE SKIN ONCE WEEKLY START taking these medications Instructions Last Dose Given Next Dose Due bisacodyL 5 mg EC tablet Commonly known as: DULCOLAX Take 1 tablet (5 mg total) by mouth daily as needed for constipation. predniSONE 10 mg tablet Commonly known as: DELTASONE 3 tabs for 3 days, 2 tabs for 3 days, 1 tab for 3 days sodium,potassium,mag sulfates 17.5-3.13-1.6 gram recon soln Commonly known as: SUPREP Please follow office colonoscopy instructions. STOP taking these medications HYDROcodone-acetaminophen 5-325 mg per tablet Commonly known as: NORCO Where to Get Your Medications These medications were sent to [id number] - [place], [place] - [address] [place] [address] bisacodyL 5 mg EC tablet predniSONE 10 mg tablet sodium,potassium,mag sulfates 17.5-3.13-1.6 gram recon soln >30 minutes were spent on discharging this patient. OSORIO Berg 03/24/2025 6:09 PM [facility] Internal Medicine 7AM-7PM & 7PM-7AM: EpicChat or page through On-Call Finder. OSORIO Berg 03/24/25 1814 Physician Attestation I, Peter Orellana MD, personally performed a face to face diagnostic evaluation on this patient. I have reviewed the note authored by the advance practice provider including history, review of systems,physical examination,medical decision making and agree with the assessment and plan as written. I have seen and evaluated the patient, I have repeated the lara portions of the physical exam and concur with the DEANA findings. I have reviewed all laboratory findings and imaging reports/films. I agree with the plan as noted. documented in this encounter Medications at Time [...] follow office colonoscopy instructions. 354 mL 03/24/2025 documented as of this encounter Progress Notes * Peter Orellana MD - 03/24/2025 9:00 AM EDT Images from the original note were not included. [facility] - 2 MED SURG [address] [facility] [phone] Hospital Medicine Progress Note Patient: William Summers Date of : 1995 [facility]: [facility] PCP: CASEY CARPIO MD Admission date: 03/21/2025 11:52 AM Encounter date: 03/24/25 Hospital Day: 4 SUBJECTIVE Interval History: Status: unchanged. No overnight events. Patient reports that he could only tolerate jello but then said it made his stomach hurt I told himto advance diet and we will see how he does. Denies any nausea/vomiting just pain upper epigastric Denies any chest pain/shortness of breath Review of Systems Constitutional: Positive for decreased appetite, malaise/fatigue and weight loss. Negative for chills, diaphoresis and fever. HENT: Negative for congestion. Cardiovascular: Negative for chest pain, dyspnea on exertion, leg swelling and palpitations. Respiratory: Negative for cough, shortness of breath, sputum production and wheezing. Hematologic/Lymphatic: Bruises/bleeds easily. Skin: Negative for dry skin and poor wound healing. Musculoskeletal: Negative for arthritis, back pain and falls. Gastrointestinal: Positive for abdominal pain. Negative for bloating, dysphagia, nausea and vomiting. Genitourinary: Negative for bladder incontinence. Neurological: Positive for weakness. Negative for excessive daytime sleepiness, dizziness, paresthesias and tremors. Psychiatric/Behavioral: Negative for altered mental status and memory loss. OBJECTIVE BP 104/66 Pulse 58 Temp 36.2 ??C (97.2 ??F) (Temporal) Resp 17 SpO2 100% Temp: [36.2 ??C (97.2 ??F)-36.6 ??C (97.8 ??F)] 36.2 ??C (97.2 ??F) Pulse: [58-73] 58 Resp: [16-17] 17 BP: (104-108)/(66-68) 104/66 SpO2: [99 %-100 %] 100 % O2 Device: None (Room air) No intake or output data in the 24 hours ending 03/24/25 0909 Physical Exam Vitals (on RA) and nursing note reviewed. Constitutional: General: He is not in acute distress. Appearance: Normal appearance. He is ill-appearing (chronic). He is not toxic- appearing or diaphoretic. Comments: Flushed cheeks HENT: Head: Normocephalic and atraumatic. Nose: Nose normal. Mouth/Throat: Mouth: Mucous membranes are moist. Eyes: Pupils: Pupils are equal, round, and reactive to light. Cardiovascular: Rate and Rhythm: Normal rate and regular rhythm. Pulses: Normal pulses. Heart sounds: Normal heart sounds. Pulmonary: Effort: Pulmonary effort is normal. No respiratory distress. Breath sounds: Normal breath sounds. No wheezing or rales. Abdominal: General: Abdomen is flat. Bowel sounds are normal. There is no distension. Palpations: Abdomen is soft. Tenderness: There is abdominal tenderness (pain in upper epigastric area). Musculoskeletal: Cervical back: Normal range of motion and neck supple. Right lower leg: No edema. Left lower leg: No edema. Skin: General: Skin is warm and dry. Capillary Refill: Capillary refill takes 2 to 3 seconds. Comments: Bilateral groin incisions clean and dry signs of infection Neurological: Mental Status: He is alert and oriented to person, place, and time. Mental status is at baseline. Sensory: No sensory deficit. Motor: No weakness. Gait: Gait normal. Psychiatric: Mood and Affect: Mood normal. Behavior: Behavior normal. Thought Content: Thought content normal. Judgment: Judgment normal. Medications Scheduled: methylPREDNISolone sodium succinate, 60 mg, intravenous, Q8H JAVIER nicotine, 1 patch, transdermal, Daily Infusions: dextrose 5 % in water, 100 mL/hr sodium chloride 0.9 %, 20 mL/hr As Needed: acetaminophen alum-mag hydroxide-simeth dextrose dextrose 5 % in water dextrose 50 % in water (D50W) glucagon (human recombinant) HYDROmorphone HYDROmorphone OR [DISCONTINUED] HYDROmorphone magnesium sulfate magnesium sulfate ondansetron potassium chloride OR potassium chloride OR potassium chloride IV (Adult) sennosides-docusate sodium sodium chloride sodium chloride sodium chloride 0.9 % Allergies: Patient has no known allergies. Labs Recent Results (from the past 24 hours) Bedside Glucose *Place/Obtain serum glucose if >500 per glucometer. Collection Time: 06/08/25 11:08 AM Result Value Ref Range Bedside Glucose (POC) 170 (H) 65 - 99 mg/dL Bedside Glucose *Place/Obtain serum glucose if >500 per glucometer. Collection Time: 03/23/25 9:22 PM Result Value Ref Range Bedside Glucose (POC) 130 (H) 65 - 99 mg/dL Comprehensive metabolic panel Collection Time: 03/24/25 5:30 AM Result Value Ref Range SODIUM 138 134 - 146 mmol/L POTASSIUM 3.8 3.5 - 5.0 mmol/L CHLORIDE 103 98 - 109 mmol/L CARBON DIOXIDE 29 22 - 32 mmol/L ANION GAP 6 5 - 15 mmol/L BLOOD UREA NITROGEN 19 5 - 23 mg/dL CREATININE 0.69 (L) 0.70 - 1.20 mg/dL GLUCOSE 122 (H) 65 - 99 mg/dL CALCIUM 9.0 8.5 - 10.5 mg/dL TOTAL PROTEIN 6.3 6.0 - 8.0 g/dL ALBUMIN 3.0 (L) 3.2 - 5.3 g/dL ALKALINE PHOSPHATASE 60 39 - 130 U/L AST 22 <=41 U/L ALT 29 <=40 U/L BILIRUBIN,TOTAL 0.6 0.3 - 1.2 mg/dL EGFR Non-Race Dependent >90 >=60 ml/min/1.73sq.m Magnesium Collection Time: 03/24/25 5:30 AM Result Value Ref Range MAGNESIUM 2.0 1.8 - 2.6 mg/dL CBC auto differential Collection Time: 03/24/25 5:30 AM Result Value Ref Range WBC 12.5 (H) 4 - 11 x10E9/L RBC Count 4.53 4.1 - 5.7 X10E12/L Hemoglobin 13.1 13 - 17 g/dL Hematocrit 38.8 (L) 39 - 50 % MCV 86 80 - 100 fL MCH 28.9 27 - 34 pg MCHC 33.7 32 - 36 g/dL RDW 13.0 11.5 - 15 % Platelet Count 316 150 - 450 X10E9/L MPV 7.2 7 - 12 fL Neutrophils Relative 91.5 % Lymphocytes Relative 5.2 % Monocytes Relative 3.2 % Eosinophils Relative 0.0 % Basophils Relative 0.1 % Neutrophils Absolute (A) 11.5 (H) 1.5 - 6.6 10*3/uL Lymphocytes Absolute 0.7 (L) 1.0 - 3.5 10*3/uL Monocytes Absolute 0.4 0.0 - 0.9 10*3/uL Eosinophils Absolute 0.0 0.0 - 0.4 10*3/uL Basophils Absolute 0.0 0.0 - 0.2 10*3/uL Differential Type AUTOMATED DIFFERENTIAL Bedside Glucose *Place/Obtain serum glucose if >500 per glucometer. Collection Time: 03/24/25 7:10 AM Result Value Ref Range Bedside Glucose (POC) 125 (H) 65 - 99 mg/dL Radiology CT abdomen and pelvis with contrast [...] PM HOSPITAL PROBLEM LIST Principal Problem: Crohn's colitis ([facility]) Active Problems: Crohn's colitis, with intestinal obstruction ([facility]) Intractable abdominal pain Severe protein-calorie malnutrition Abdominal pain History of Crohn's disease Crohn's disease of colon without complication ([facility]) Poor appetite Hypoalbuminemia Leukocytosis Elevated glucose Cannabis abuse, episodic ASSESSMENT & PLAN Crohn's Disease Poor Appetite/Hypoalbuminemia -production bow maker to see reviewed her note sounds like he was drinking 6/7 energy drinks per day and recently cut back to 2/3. Does occasional drink a boost -advanced diet over the weekend appears still poor appetite -decrease pain meds to 0.5mg for severe pain and 0.2mg for moderate pain dilaudid -Has been on humira in the past symptoms were almost resolved and going to get started on skyrizi soon. -continue with nutritional supplements TID Elevated glucose Leukocytosis -suspect secondary to high dose steroids -check A1C -suspect leukocytosis secondary to high dose steroids trend normal WBC on admit until steroids given. Hypokalemia Hypomagnesemia -both resolved Cannabis use -encourage cessation Recent surgery last week to have bilateral cysts removed in groin area -Skyrizi on hold due to DC planning: Full code, likely d/c tomorrow pending clinical course and pain control would like to see diet improved prior to discharging since he is having poor appetite still and getting pain meds pretty frequently. OSORIO Berg 03/24/2025 9:[address] [facility] [facility] Internal Medicine 7AM-7PM & 7PM-7AM: EpicChat or page through On-Call Finder. OSORIO Berg 03/24/25 1313 Physician Attestation I, Peter Orellana MD, personally performed a face to face diagnostic evaluation on this patient. I have reviewed the note authored by the advance practice provider including history, review of systems,physical examination,medical decision making and agree with the assessment and plan as written. I have seen and evaluated the patient, I have repeated the lara portions of the physical exam and concur with the DEANA findings. I have reviewed all laboratory findings and imaging reports/films. I agree with the plan as noted. * Turner Quinones MD - 03/23/2025 9:57 AM EDT Images from the original note were not included. [facility] Medicine Progress Note Patient: William Summers Date of : 1995 Room: [facility] PCP: CASEY CARPIO MD Admission date: 03/21/2025 11:52 AM Encounter date: 03/23/25 SUBJECTIVE Chief complaints: No chief complaint on file. Interval History: Status: improved. No overnight events or new complaints. Remained afebrile. Pain appears very poorly controlled, using Dilaudid regularly. Become very nauseous and has significant pain flare upon eating any solid food. Counseling provided on try to space out his Dilaudid as much as possible, sticking to full liquid diet for most of today and only attempting soft solid foods for dinner. Review of Systems Review of Systems Constitutional: [...] Psychiatric/Behavioral: Negative for sleep disturbance. OBJECTIVE BP 128/71 Pulse 72 Temp 36.7 ??C (98.1 ??F) (Temporal) Resp 17 SpO2 99% No intake or output data in the 24 hours ending 03/23/25 0958 Physical Exam Physical Exam Vitals and nursing [...] sodium succinate, 60 mg, intravenous, Q8H JAVIER nicotine, 1 patch, transdermal, Daily Infusions: dextrose 5 % in water, 100 mL/hr sodium chloride 0.9 %, 20 mL/hr As Needed: acetaminophen alum-mag hydroxide-simeth dextrose dextrose 5 % in water dextrose 50 % in water (D50W) glucagon (human recombinant) HYDROmorphone OR HYDROmorphone magnesium sulfate magnesium sulfate ondansetron potassium chloride OR potassium chloride OR potassium chloride IV (Adult) sennosides-docusate sodium sodium chloride sodium chloride sodium chloride 0.9 % Allergies: Patient has no known allergies. Labs Recent Results (from the past 24 hours) Drug Screen, Urine Collection Time: 03/22/25 10:22 AM Specimen: Urine Result Value Ref Range AMPHETAMINE/METHAMP Negative Negative COCAINE METABOLITE Negative Negative ECSTASY Negative Negative METHADONE Negative Negative OPIATES Positive (A) Negative OXYCODONE Negative Negative PHENCYCLIDINE Negative Negative CANNABINOIDS Positive (A) Negative Urine Barbiturates Negative Negative BENZODIAZEPINES Negative Negative Narrative Confirmation available upon request. Bedside Glucose *Place/Obtain serum glucose if >500 per glucometer. Collection Time: 03/22/25 6:30 PM Result Value Ref Range Bedside Glucose (POC) 150 (H) 65 - 99 mg/dL Bedside Glucose *Place/Obtain serum glucose if >500 per glucometer. Collection Time: 03/22/25 8:15 PM Result Value Ref Range Bedside Glucose (POC) 136 (H) 65 - 99 mg/dL Comprehensive metabolic panel Collection Time: 03/23/25 5:58 AM Result Value Ref Range SODIUM 134 134 - 146 mmol/L POTASSIUM 4.1 3.5 - 5.0 mmol/L CHLORIDE 103 98 - 109 mmol/L CARBON DIOXIDE 27 22 - 32 mmol/L ANION GAP 4 (L) 5 - 15 mmol/L BLOOD UREA NITROGEN 21 5 - 23 mg/dL CREATININE 0.62 (L) 0.70 - 1.20 mg/dL GLUCOSE 146 (H) 65 - 99 mg/dL CALCIUM 8.7 8.5 - 10.5 mg/dL TOTAL PROTEIN 6.2 6.0 - 8.0 g/dL ALBUMIN 3.0 (L) 3.2 - 5.3 g/dL ALKALINE PHOSPHATASE 63 39 - 130 U/L AST 17 <=41 U/L ALT 21 <=40 U/L BILIRUBIN,TOTAL 0.5 0.3 - 1.2 mg/dL EGFR Non-Race Dependent >90 >=60 ml/min/1.73sq.m Magnesium Collection Time: 03/23/25 5:58 AM Result Value Ref Range MAGNESIUM 1.9 1.8 - 2.6 mg/dL CBC auto differential Collection Time: 03/23/25 5:58 AM Result Value Ref Range WBC 11.7 (H) 4 - 11 x10E9/L RBC Count 4.33 4.1 - 5.7 X10E12/L Hemoglobin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 medicine when needed 2. Assess pain using appropriate pain scale and include the scale used when documenting 3. Administer analgesics based on type and severity of pain and evaluate response within appropriate time frame 4. Implement non-pharmacological measures as appropriate and evaluate response 5. Consider cultural and social influences on pain and pain management 6. Notify LIP if interventions ineffective or patient reports new pain 7. Monitor vital signs including pulse ox, end-tidal CO2 based on pain intervention 8. Reassess pain per policy 9. Teach patient or legal sales representative business courses interventions for comforting Outcome: Progressing Note: Evaluation of progress towards goal: Denies any pain or discomfort at this times Problem: Safety Goal: Patient will be injury free during hospitalization Description: INTERVENTIONS: 1. Assess patient's risk for falls and implement fall prevention plan of care per policy 2. Provide and maintain a safe environment 3. Proper use of double Identifiers 4. Medication administration using the 5 rights 5. Hand hygiene 6. Specimens are labeled at the bedside 7. Instruct patient/ patient sales representative business courses about use of safety devices 8. Include patient/ patient sales representative business courses in decisions related to safety Outcome: Progressing Note: Evaluation of progress towards goal: Denies any pain or discomfort at this times Problem: Infection Goal: Absence of infection during hospitalization Description: INTERVENTIONS 1. Assess and monitor for signs and symptoms of infection. 2. Monitor lab/diagnostic results. 3. Monitor all insertion sites i.e., indwelling lines, tubes and drains. 4. Monitor endotracheal (as able) and nasal secretions for changes in amount and color. 5. Administer medications as ordered. 6. Instruct and encourage patient and family to use good hand hygiene technique. 7. Identify and instruct patient/patient sales representative business courses in use of appropriate isolation precautionsfor identified infection/symptoms. 8. Provide and discuss with patient/patient sales representative business courses on educational MDRO sheet. 9. Encourage and monitor nutritional status daily and consult production bow maker if indicated. 10. Implement neutropenic guidelines as needed. Outcome: Progressing Note: Evaluation of progress towards goal: cont w/ proper handwashing techniques Problem: Knowledge Deficit Goal: Patient/patient sales representative business courses demonstrates understanding of disease process, treatment plan,medications, and discharge instructions Description: INTERVENTIONS 1. Complete learning assessment and assess knowledge base 2. Provide teaching at level of understanding 3. Provide teaching via preferred learning method(s) Outcome: Progressing Note: Evaluation of progress towards goal: Cont Problem: Discharge Planning Goal: Discharge to post-acute care, other facility, or home with appropriate resources Description: Patient's goal is: INTERVENTIONS 1. Conduct assessment to determine patient/family and health care team treatment goals, and need for post-acute services based on payer coverage, community resources, and patient preferences, and barriers to discharge 2. Coordinate with Social work, Care Navigation, and Utilization Review to arrange appropriate level of services according to patient's needs based on patient preference and payer coverage in collaboration with the physician and health care team 3. Address psychosocial, clinical, and financial barriers to discharge as identified in assessment in conjunction with the patient/family and health care team 4. Consult appropriate ancillary services (i.e.. PT/OT/ST, etc) as needed 5. Communicate with and update the patient/family, physician, and health care team regarding progress on the discharge plan 6. Identify discharge learning needs (meds, wound care, etc). 7. Arrange for needed discharge transportation as appropriate Outcome: Progressing Note: Evaluation of progress towards goal: Cont Problem: Moderate - High Risk Fall Score Description: Lee Fall Score of =/> 25 or indicated by [facility] Assessment Goal: Patient should be free from fall Description: Interventions: 1. [place] to environment 2. Hourly rounds addressing the 4 P's (Pain, Positioning, Possessions, Potty) 3. Clear area of hazards (spills, clutter, electrical cords, unnecessary equipment) 4. Place equipment (bed & TV controls, call light, phone, urinal) within reach 5. Encourage patient to wear glasses and hearing aides as appropriate 6. Maintain bed in lowest position 7. Lock wheels on bed/wheelchair 8. Provide adequate lighting, including night light 9. Assess need for additional bedding, food/fluids, pain med's prior to sleep/routinely 10. Provide gripper slippers or personal non-skid footwear 11. Teach patient and patient sales representative business courses to maintain environment for safety and engage in all aspects of fall prevention program 12. Remind patient to call for help before getting out of bed 13. Initiate bed/chair/exit alarms supportive devices as appropriate, (chair wedge, no-skid floor mat, raised edge mattress, hip protectors) 14. Locate patient bed assignment for optimal visualization 15. Evaluate and identify Safe Patient Handling Equipment needs 16. Provide supervision when out of bed or chair 17. Utilize gait belt as needed to assist with ambulation 18. Place adaptive equipment (cane, walker) within reach 19. Request patient sales representative business courses bring adaptive equipment/mobility aids from home or obtain and provide as needed 20. Consult pharmacy regarding effects of med's affecting mobility, cognition, and alternatives 21. Obtain physician order for PT if risk factors associated with mobility are present 22. Obtain physician order for OT as appropriate 23. Utilize diversional activities 24. Educate patient and patient sales representative business courses how to maintain a safe environment during visitationtimes (notify nurse prior to leaving bedside) 25. Consider appropriateness of medical or non-medical oncology physician 26. Set up voiding schedule as appropriate (every 2 hours) Outcome: Progressing Note: Evaluation of progress towards goal: No fall noted or reported at this times. Cont w/ currentplan of care * Plan of Care - Kristal Newsome RN - 03/24/2025 4:29 AM EDT Problem: Pain Goal: Patient goal is pain score less than 4, able to rest, and participant in treatment plan as appropriate Description: INTERVENTIONS: 1. Encourage patient or legal sales representative business courses to report early pain and ask for pain medicine when needed 2. Assess pain using appropriate pain scale and include the scale used when documenting 3. Administer analgesics based on type and severity of pain and evaluate response within appropriate time frame 4. Implement non-pharmacological measures as appropriate and evaluate response 5. Consider cultural and social influences on pain and pain management 6. Notify LIP if interventions ineffective or patient reports new pain 7. Monitor vital signs including pulse ox, end-tidal CO2 based on pain intervention 8. Reassess pain per policy 9. Teach patient or legal sales representative business courses interventions for comforting Outcome: Progressing Note: Evaluation of progress towards goal: Patient reporting pain 5/10-7/10 on numeric pain scale, has morphine 0.5mg or 1mg IV as needed for pain. Patient educated on non-pharmacological pain reliefmeasures. Problem: Safety Goal: Patient will be injury free during hospitalization Description: INTERVENTIONS: 1. Assess patient's risk for falls and implement fall prevention plan of care per policy 2. Provide and maintain a safe environment 3. Proper use of double Identifiers 4. Medication administration using the 5 rights 5. Hand hygiene 6. Specimens are labeled at the bedside 7. Instruct patient/ patient sales representative business courses about use of safety devices 8. Include patient/ patient sales representative business courses in decisions related to safety Outcome: Progressing Note: Evaluation of progress towards goal: Patient alert and oriented x 4, uses call light appropriately for pain, up ad byron in room * Plan of Care - Abbey Dee RN - 03/23/2025 2:10 PM EDT Problem: Pain Goal: Patient goal is pain score less than 4, able to rest, and participant in treatment plan as appropriate Description: INTERVENTIONS: 1. Encourage patient or legal sales representative business courses to report early pain and ask for pain medicine when needed 2. Assess pain using appropriate pain scale and include the scale used when documenting 3. Administer analgesics based on type and severity of pain and evaluate response within appropriate time frame 4. Implement non-pharmacological measures as appropriate and evaluate response 5. Consider cultural and social influences on pain and pain management 6. Notify LIP if interventions ineffective or patient reports new pain 7. Monitor vital signs including pulse ox, end-tidal CO2 based on pain intervention 8. Reassess pain per policy 9. Teach patient or legal sales representative business courses interventions for comforting Outcome: Progressing Note: Evaluation of progress towards goal: Pt able to report pain according to 0/10 pain scale. Medicating patient for pain per orders. Problem: Safety Goal: Patient will be injury free during hospitalization Description: INTERVENTIONS: 1. Assess patient's risk for falls and implement fall prevention plan of care per policy 2. Provide and maintain a safe environment 3. Proper use of double Identifiers 4. Medication administration using the 5 rights 5. Hand hygiene 6. Specimens are labeled at the bedside 7. Instruct patient/ patient sales representative business courses about use of safety devices 8. Include patient/ patient sales representative business courses in decisions related to safety Outcome: Progressing Note: Evaluation of progress towards goal: Pt's risk for falls assessed and fall prevention implemented as needed, safe environment provided and maintained, hand hygiene completed. Problem: Infection Goal: Absence of infection during hospitalization Description: INTERVENTIONS 1. Assess and monitor for signs and symptoms of infection. 2. Monitor lab/diagnostic results. 3. Monitor all insertion sites i.e., indwelling lines, tubes and drains. 4. Monitor endotracheal (as able) and nasal secretions for changes in amount and color. 5. Administer medications as ordered. 6. Instruct and encourage patient and family to use good hand hygiene technique. 7. Identify and instruct patient/patient sales representative business courses in use of appropriate isolation precautionsfor identified infection/symptoms. 8. Provide and discuss with patient/patient sales representative business courses on educational MDRO sheet. 9. Encourage and monitor nutritional status daily and consult production bow maker if indicated. 10. Implement neutropenic guidelines as needed. Outcome: Progressing Note: Evaluation of progress towards goal: Pt assessed and monitored for signs and symptoms of infection, lab and diagnostic results monitored as needed, administer medications as needed. Problem: Knowledge Deficit Goal: Patient/patient sales representative business courses demonstrates understanding of disease process, treatment plan,medications, and discharge instructions Description: INTERVENTIONS 1. Complete learning assessment and assess knowledge base 2. Provide teaching at level of understanding 3. Provide teaching via preferred learning method(s) Outcome: Progressing Note: Evaluation of progress towards goal: POC discussed with patient. Questions answered PRN. * Plan of Care - Kristal Newsome RN - 03/23/2025 2:43 AM EDT Problem: Pain Goal: Patient goal is pain score less than 4, able to rest, and participant in treatment plan as appropriate Description: INTERVENTIONS: 1. Encourage patient or legal sales representative business courses to report early pain and ask for pain medicine when needed 2. Assess pain using appropriate pain scale and include the scale used when documenting 3. Administer analgesics based on type and severity of pain and evaluate response within appropriate time frame 4. Implement non-pharmacological measures as appropriate and evaluate response 5. Consider cultural and social influences on pain and pain management 6. Notify LIP if interventions ineffective or patient reports new pain 7. Monitor vital signs including pulse ox, end-tidal CO2 based on pain intervention 8. Reassess pain per policy 9. Teach patient or legal sales representative business courses interventions for comforting Outcome: Progressing Note: Evaluation of progress towards goal: Patient's pain ranging from 6/10- 8/10, has 1mg dilaudid every three hours PRN for pain Problem: Safety Goal: Patient will be injury free during hospitalization Description: INTERVENTIONS: 1. Assess patient's risk for falls and implement fall prevention plan of care per policy 2. Provide and maintain a safe environment 3. Proper use of double Identifiers 4. Medication administration using the 5 rights 5. Hand hygiene 6. Specimens are labeled at the bedside 7. Instruct patient/ patient sales representative business courses about use of safety devices 8. Include patient/ patient sales representative business courses in decisions related to safety Outcome: Progressing Note: Evaluation of progress towards goal: Patient is alert and oriented x 4, uses call light appropriately for addressing needs, up ad byron in room * Plan of Care - Abbey Dee RN - 03/22/2025 10:42 AM EDT Problem: Pain Goal: Patient goal is pain score less than 4, able to rest, and participant in treatment plan as appropriate Description: INTERVENTIONS: 1. Encourage patient or legal sales representative business courses to report early pain and ask for pain medicine when needed 2. Assess pain using appropriate pain scale and include the scale used when documenting 3. Administer analgesics based on type and severity of pain and evaluate response within appropriate time frame 4. Implement non-pharmacological measures as appropriate and evaluate response 5. Consider cultural and social influences on pain and pain management 6. Notify LIP if interventions ineffective or patient reports new pain 7. Monitor vital signs including pulse ox, end-tidal CO2 based on pain intervention 8. Reassess pain per policy 9. Teach patient or legal sales representative business courses interventions for comforting Outcome: Progressing Note: Evaluation of progress towards goal: Pt able to report pain according to 0/10 pain scale. Medicating patient for pain per orders. Problem: Safety Goal: Patient will be injury free during hospitalization Description: INTERVENTIONS: 1. Assess patient's risk for falls and implement fall prevention plan of care per policy 2. Provide and maintain a safe environment 3. Proper use of double Identifiers 4. Medication administration using the 5 rights 5. Hand hygiene 6. Specimens are labeled at the bedside 7. Instruct patient/ patient sales representative business courses about use of safety devices 8. Include patient/ patient sales representative business courses in decisions related to safety Outcome: Progressing Note: Evaluation of progress towards goal: Pt's risk for falls assessed and fall prevention implemented as needed, safe environment provided and maintained, hand hygiene completed. Problem: Infection Goal: Absence of infection during hospitalization Description: INTERVENTIONS 1. Assess and monitor for signs and symptoms of infection. 2. Monitor lab/diagnostic results. 3. Monitor all insertion sites i.e., indwelling lines, tubes and drains. 4. Monitor endotracheal (as able) and nasal secretions for changes in amount and color. 5. Administer medications as ordered. 6. Instruct and encourage patient and family to use good hand hygiene technique. 7. Identify and instruct patient/patient sales representative business courses in use of appropriate isolation precautionsfor identified infection/symptoms. 8. Provide and discuss with patient/patient sales representative business courses on educational MDRO sheet. 9. Encourage and monitor nutritional status daily and consult production bow maker if indicated. 10. Implement neutropenic guidelines as needed. Outcome: Progressing Note: Evaluation of progress towards goal: Pt assessed and monitored for signs and symptoms of infection, lab and diagnostic results monitored as needed, administer medications as needed. * Plan of Care - Kristal Newsome RN - 03/22/2025 1:22 AM EDT Problem: Pain Goal: Patient goal is pain score less than 4, able to rest, and participant in treatment plan as appropriate Description: INTERVENTIONS: 1. Encourage patient or legal sales representative business courses to report early pain and ask for pain medicine when needed 2. Assess pain using appropriate pain scale and include the scale used when documenting 3. Administer analgesics based on type and severity of pain and evaluate response within appropriate time frame 4. Implement non-pharmacological measures as appropriate and evaluate response 5. Consider cultural and social influences on pain and pain management 6. Notify LIP if interventions ineffective or patient reports new pain 7. Monitor vital signs including pulse ox, end-tidal CO2 based on pain intervention 8. Reassess pain per policy 9. Teach patient or legal sales representative business courses interventions for comforting Outcome: Progressing Note: Evaluation of progress towards goal: Patient reports pain 8/10 continuously, has PRN Dilaudidevery 4 hours as needed for pain, patient reports pain increases between doses Problem: Safety Goal: Patient will be injury free during hospitalization Description: INTERVENTIONS: 1. Assess patient's risk for falls and implement fall prevention plan of care per policy 2. Provide and maintain a safe environment 3. Proper use of double Identifiers 4. Medication administration using the 5 rights 5. Hand hygiene 6. Specimens are labeled at the bedside 7. Instruct patient/ patient sales representative business courses about use of safety devices 8. Include patient/ patient sales representative business courses in decisions related to safety Outcome: Progressing Note: Evaluation of progress towards goal: Patient is alert and oriented x 4, uses call light appropriately for addressing needs, up ad byron in room * Discharge Planning Note - ROCÍO Ren - 03/21/2025 3:57 PM EDT Initial Assessment Track Leader met with patient, introduced self, and explained role. Safe discharge plan discussed. Pt does not have any questions or concerns about his DC. He follows with Ricardo MARIN and will set up his f/u appts. Initial Assessment Flowsheet Row Most Recent Value Patient Information Initial Pre-Hospitalization Assessment Completed? Completed Primary Caregiver Self Accompanied by/Relationship Parents Support System Parent Discharge Planning Living Arrangements Parent Assistance Needed Pt denies any DC, needs, questions or concerns. He has good support from his parents. He is an only child. Private Residence 1 story Home Care Services No Community Agencies Currently Utilized None Type of Residence Private residence Established DME Comments None Stressors Type of stressor Health issues Explain issues Crohn's disease. 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 Yes Pt. Eligible for Food / Voucher No Caregiver/Family Member Caregiver/Family Member Parents Caregiver/Family Member Involved with Current Plan of Care Yes Caregiver/Family Member in Agreement with Current Plan of Care Yes Caregiver/Support System Limitations Patient/Caregiver Goals Patient/Caregiver Goals Home No Needs, Home with Outpatient Service Provider Home No Needs Caregiver/Family Community Provider Referral Community Provider Referral None Services Requested Patient expects to be discharged to: Return home Does the patient wish to have family/friend/caregiver involved in their discharge planning? Yes Does the patient plan to return home to a community setting? Yes Has the family/friend/caregiver been assessed to determine their readiness, skills, capacities, andresources to provide post hospital care? Yes, Caregiver Assessment Completed Discharge Disposition Home with self care Does the patient need discharge transportation arranged? No DC Planning Complete Discharge Milestones Yes Additional Comments (If Applicable) documented in this encounter Plan of Treatment Upcoming Encounters Date Type Department Care Team (Latest Contact Info) Description 04/10/2025 8:30 AM EDT Hospital Encounter [facility] - Endoscopy [address] [place] [address], [address] [place] [address] [place] [address] [place] [address], [address] [place] [address] 04/10/2025 8:30 AM EDT - 04/10/2025 9:00 AM EDT Surgery [facility] - Endoscopy [address] [place] [address], [address] [place] [id number] [place] [address] [place] [address], [address] [place] [address] ESOPHAGOGASTRODUODENOSCOPY DIAGNOSTIC [59829 (CPT )] 04/23/2025 11:00 AM EDT Infusion [facility] In[facility] [address] [place] [address] [address] [place] [address] 05/20/2025 9:15 AM EDT Office Visit [facility], A Department of [address] [place] [address] [place] [address] [place] [address], [address] [place] [address] 05/21/2025 11:[address] [facility] [address] [address] Scheduled Procedures Name Priority Associated Diagnoses Date/Ti me ESOPHAGOGASTRODUODENOSCOPY DIAGNOSTIC Crohn's disease of both small and large intestine without complication ([facility]) [K50.80] - Primary 04/10/2025 8:30 AM EDT COLONOSCOPY DIAGNOSTIC / SCREENING Crohn's disease of both small and large intestine without complication ([facility]) [K50.80] - Primary 04/10/2025 8:30 AM EDT documented as of this encounter Goals Goal Patient Goal Type Associated Problems Recent Progress Patient-Stated? Author Return home General Yes Lexie Frausto LSW Note: Evaluation of progress towards goal: In progress: Return home, self care. documented as of this encounter Procedures Procedure Name Priority Date/Time Associated Diagnosis Comments BEDSIDE GLUCOSE Routine 03/24/2025 11:22 AM EDT BEDSIDE GLUCOSE Routine 03/24/2025 7:10 AM EDT CBC WITH AUTO DIFFERENTIAL Routine 03/24/2025 5:30 AM EDT MAGNESIUM Routine 03/24/2025 5:30 AM EDT HEMOGLOBIN A1C Add-On 03/24/2025 5:30 AM EDT COMPREHENSIVE METABOLIC PANEL Routine 03/24/2025 5:30 AM EDT BEDSIDE GLUCOSE Routine 03/23/2025 9:22 PM EDT BEDSIDE GLUCOSE Routine 03/23/2025 11:08 AM EDT BEDSIDE GLUCOSE Routine 03/23/2025 7:40 AM EDT CBC WITH AUTO DIFFERENTIAL Routine 03/23/2025 5:58 AM EDT MAGNESIUM Routine 03/23/2025 5:58 AM EDT COMPREHENSIVE METABOLIC PANEL Routine 03/23/2025 5:58 AM EDT BEDSIDE GLUCOSE Routine 03/22/2025 8:15 PM EDT BEDSIDE GLUCOSE Routine 03/22/2025 6:30 PM EDT DRUG SCREEN, URINE Routine 03/22/2025 10 :22 AM EDT BEDSIDE GLUCOSE Routine 03/22/2025 6:07 AM EDT CBC WITH AUTO DIFFERENTIAL Routine 03/22/2025 5:29 AM EDT MAGNESIUM Routine 03/22/2025 5:29 AM EDT COMPREHENSIVE METABOLIC PANEL Routine 03/22/2025 5:29 AM EDT BEDSIDE GLUCOSE Routine 03/22/2025 12:10 AM EDT BEDSIDE GLUCOSE Routine 03/21/2025 5:02 PM EDT POTASSIUM Routine 03/21/2025 4:28 PM EDT MAGNESIUM Routine 03/21/2025 4:28 PM EDT BEDSIDE GLUCOSE Routine 03/21/2025 2:57 PM EDT documented in this encounter Results * (ABNORMAL) Bedside Glucose *Place/Obtain serum glucose if >500 per glucometer. (03/24/2025 11:22AM EDT) Pathologist [facility] Bedside Glucose (POC) 201(H) 65 - 99 mg/dL 03/24/2025 11:31 AM EDT [facility] arterial/capilla ry 03/24/2025 11:22 AM EDT 03/24/2025 11:31 AM EDT us Peter Orellana MD POINT OF CARE TEST ORDERABLES F inal Result Performing Organization Address [facility]/[place] [address], * (ABNORMAL) Bedside Glucose *Place/Obtain serum glucose if >500 per glucometer. (03/24/2025 7:10 AM EDT) Bedside Glucose (POC) 125(H) 65 - 99 mg/dL 03/24/2025 7:46 AM EDT [facility] arterial/capilla ry 03/24/2025 7:10 AM EDT 03/24/2025 7:46 AM EDT us Turner Quinones MD POINT OF CARE TEST ORDERABLES Final Result Performing Organization Address [facility] [place] [address], [place] * Hemoglobin A1c (03/24/2025 5:30 AM EDT) HEMOGLOBIN A1C 4.9 4.4 - 5.6 % 03/24/2025 2:36 PM EDT [facility] Comment: ADA Guidelines Result HgbA1c Normal : less than 5.7 % Prediabetes : 5.7 % to 6.4 % Diabetes : > 6.4 % Use with caution in patients with abnormal hemoglobin variants as the half-life of red blood cells and in vivo glycation rates are affected. EST. AVERAGE GLUCOSE 94 mg/dL 03/24/2025 2:36 PM EDT [facility] Blood Venipuncture / Unknown 03/24/2025 5:30 AM EDT 03/24/2025 6:34 AM EDT Valeri Carrillo [employer] APPRENTICE-[facility] LAB BLOOD ORDERABLES Final Result Performing Organization Address City/[facility]/ZIP Co de Phone Number [facility] [address] [place] [address], [place] [phone] * (ABNORMAL) CBC auto differential (03/24/2025 5:30 AM EDT) WBC 12.5(H) 4 - 11 x10E9/L 03/24/2025 6:41 AM EDT [facility] RBC Count 4.53 4.1 - 5.7 X10E12/L 03/24/2025 6:41 AM EDT [facility] Hemoglobin 13.1 13 - 17 g/dL 03/24/2025 6:41 AM T [facility] Hematocrit 38.8(L) 39 - 50 % 03/24/2025 6:41 AM T [facility] MCV 86 80 - 100 fL 03/24/2025 6:41 AM EDT [facility] MCH 28.9 27 - 34 pg 03/24/2025 6:41 AM EDT [facility] MCHC 33.7 32 - 36 g/dL 03/24/2025 6:41 AM EDT [facility] RDW 13.0 11.5 - 15 % 03/24/2025 6:41 AM T [facility] Platelet Count 316 150 - 450 X10E9/L 03/24/2025 6:41 AM T [facility] MPV 7.2 7 - 12 fL 03/24/2025 6:41 AM EDT [facility] Neutrophils Relative 91.5 % 03/24/2025 6:41 AM EDT [facility] Lymphocytes Relative 5.2 % 03/24/2025 6:41 AM EDT [facility] Monocytes Relative 3.2 % 03/24/2025 6:41 AM EDT [facility] Eosinophils Relative 0.0 % 03/24/2025 6:41 AM EDT [facility] Basophils Relative 0.1 % 03/24/2025 6:41 AM EDT [facility] Neutrophils Absolute (A) 11.5(H) 1.5 - 6.6 10*3/uL 03/24/2025 6:41 AM EDT [facility] Lymphocytes Absolute 0.7(L) 1.0 - 3.5 10*3/uL 03/24/2025 6:41 AM EDT [facility] Monocytes Absolute 0.4 0.0 - 0.9 10*3/uL 03/24/2025 6:41 AM EDT [facility] Eosinophils Absolute 0.0 0.0 - 0.4 10*3/uL 03/24/2025 6:41 AM EDT [facility] Basophils Absolute 0.0 0.0 - 0.2 10*3/uL 03/24/2025 6:41 AM EDT [facility] Differential Type AUTOMATED DIFFERENTIAL 03/24/2025 6:41 AM EDT [facility] Blood Venipuncture / Unknown 03/24/2025 5:30 AM EDT 03/24/2025 6:34 AM EDT us Turner Quinones MD LAB BLOOD ORDERABLES Final Res ult Performing Organization Address City/[facility]/[place] [address], [place] * Magnesium (03/24/2025 5:30 AM EDT) MAGNESIUM 2.0 1.8 - 2.6 mg/dL 03/24/2025 6:59 AM EDT [facility] Blood Venipuncture / Unknown 03/24/2025 5:30 AM EDT 03/24/2025 6:34 AM EDT us Turner Quinones MD LAB BLOOD [place]AB[place] [address], [place] * (ABNORMAL) Comprehensive metabolic panel (03/24/2025 5:30 AM EDT) SODIUM 138 134 - 146 mmol/L 03/24/2025 6:59 AM EDT [facility] POTASSIUM 3.8 3.5 - 5.0 mmol/L 03/24/2025 6:59 AM [facility] CHLORIDE 103 98 - 109 mmol/L 03/24/2025 6:59 AM [facility] CARBON DIOXIDE 29 22 - 32 mmol/L 03/24/2025 6:59 AM [facility] ANION GAP 6 5 - 15 mmol/L 03/24/2025 6:59 AM [facility] BLOOD UREA NITROGEN 19 5 - 23 mg/dL 03/24/2025 6:59 AM [facility] CREATININE 0.69(L) 0.70 - 1.20 mg/dL 03/24/2025 6:59 AM [facility] Comment:METHOD TRACEABLE TO IDMS STANDARD GLUCOSE 122(H) 65 - 99 mg/dL 03/24/2025 6:59 AM [facility] CALCIUM 9.0 8.5 - 10.5 mg/dL 03/24/2025 6:59 AM [facility] TOTAL PROTEIN 6.3 6.0 - 8.0 g/dL 03/24/2025 6:59 AM [facility] ALBUMIN 3.0(L) 3.2 - 5.3 g/dL 03/24/2025 6:59 AM [facility] ALKALINE PHOSPHATASE 60 39 - 130 U/L 03/24/2025 6:59 AM [facility] AST 22 <=41 U/L 03/24/2025 6:59 AM [facility] ALT 29 <=40 U/L 03/24/2025 6:59 AM [facility] BILIRUBIN,TOTAL 0.6 0.3 - 1.2 mg/dL 03/24/2025 6:59 AM [facility] EGFR Non-Race Dependent >90 >=60 ml/min/1.7 3sq.m 03/24/2025 6:59 AM [facility] Comment: eGFR not reported due to non-numeric value for Creatinine. Reported eGFR is based on the CKD-EPI 2020 equation that does not use a race coefficient. Blood Venipuncture / Unknown 03/24/2025 5:30 AM EDT 03/24/2025 6:34 AM EDT Turner Quinones MD LAB BLOOD ORDERABLES Final Res ult Performing Organization Address [facility]/ZIP Co de Phone Number [place] [phone], [place] * (ABNORMAL) Bedside Glucose *Place/Obtain serum glucose if >500 per glucometer. (03/23/2025 9:22 PM EDT) Bedside Glucose (POC) 130(H) 65 - 99 mg/dL 03/23/2025 9:35 PM EDT [facility] arterial/capilla ry 03/23/2025 9:22 PM EDT 03/23/2025 9:35 PM EDT Turner Quinones MD POINT OF CARE TEST ORDERABLES Final Result Performing Organization Address [facility] [place] [address], [place] * (ABNORMAL) Bedside Glucose *Place/Obtain serum glucose if >500 per glucometer. (03/23/2025 11:08AM EDT) Bedside Glucose (POC) 170(H) 65 - 99 mg/dL 03/23/2025 11:17 AM EDT [facility] arterial/capilla ry 03/23/2025 11:08 AM EDT 03/23/2025 11:17 AM EDT Turner Quinones MD POINT OF CARE TEST ORDERABLES Final Result Performing Organization Address [facility] Co de Phone Number [place] [phone], [place] * (ABNORMAL) Bedside Glucose *Place/Obtain serum glucose if >500 per glucometer. (03/23/2025 7:40 AM EDT) Bedside Glucose (POC) 134(H) 65 - 99 mg/dL 03/23/2025 7:51 AM EDT [facility] arterial/capilla ry 03/23/2025 7:40 AM EDT 03/23/2025 7:51 AM EDT us Turner Quinones MD POINT OF CARE TEST ORDERABLES Final Result [address] [address], [place] * (ABNORMAL) CBC auto differential (03/23/2025 5:58 AM EDT) WBC 11.7(H) 4 - 11 x10E9/L 03/23/2025 6:11 AM EDT [facility] RBC Count 4.33 4.1 - 5.7 X10E12/L 03/23/2025 6:11 AM EDT [facility] Hemoglobin 12.5(L) 13 - 17 g/dL 03/23/2025 6:11 AM EDT [facility] Hematocrit 37.3(L) 39 - 50 % 03/23/2025 6:11 AM EDT [facility] MCV 86 80 - 100 fL 03/23/2025 6:11 AM EDT [facility] MCH 28.8 27 - 34 pg 03/23/2025 6:11 AM T [facility] MCHC 33.5 32 - 36 g/dL 03/23/2025 6:11 AM T [facility] RDW 12.8 11.5 - 15 % 03/23/2025 6:11 AM EDT [facility] Platelet Count 284 150 - 450 X10E9/L 03/23/2025 6:11 AM EDT [facility] MPV 6.8(L) 7 - 12 fL 03/23/2025 6:11 AM EDT [facility] Neutrophils Relative 90.7 % 03/23/2025 6:11 AM EDT [facility] Lymphocytes Relative 4.7 % 03/23/2025 6:11 AM EDT [facility] Monocytes Relative 4.5 % 03/23/2025 6:11 AM EDT [facility] Eosinophils Relative 0.0 % 03/23/2025 6:11 AM EDT [facility] Basophils Relative 0.1 % 03/23/2025 6:11 AM EDT [facility] Neutrophils Absolute (A) 10.6(H) 1.5 - 6.6 10*3/uL 03/23/2025 6:11 AM EDT [facility] Lymphocytes Absolute 0.5(L) 1.0 - 3.5 10*3/uL 03/23/2025 6:11 AM EDT [facility] Monocytes Absolute 0.5 0.0 - 0.9 10*3/uL 03/23/2025 6:11 AM EDT [facility] Eosinophils Absolute 0.0 0.0 - 0.4 10*3/uL 03/23/2025 6:11 AM EDT [facility] Basophils Absolute 0.0 0.0 - 0.2 10*3/uL 03/23/2025 6:11 AM EDT [facility] Differential Type AUTOMATED DIFFERENTIAL 03/23/2025 6:11 AM EDT [facility] Blood 03/23/2025 5:58 AM EDT 03/23/2025 6:03 AM EDT us Turner Quinones MD LAB BLOOD ORDERABLES Final Res ult Performing Organization Address City/[facility]/ZIP Co de Phone Number [place] [phone], [place] * Magnesium (03/23/2025 5:58 AM EDT) MAGNESIUM 1.9 1.8 - 2.6 mg/dL 03/23/2025 6:24 AM EDT [facility] Blood 03/23/2025 5:58 AM EDT 03/23/2025 6:03 AM EDT us Turner Quinones MD LAB BLOOD ORDERABLES Final Res ult Performing Organization Address City/[facility]/ZIP Co de Phone Number [place] [phone], [place] * (ABNORMAL) Comprehensive metabolic panel (03/23/2025 5:58 AM EDT) SODIUM 134 134 - 146 mmol/L 03/23/2025 6:24 AM [facility] POTASSIUM 4.1 3.5 - 5.0 mmol/L 03/23/2025 6:24 AM [facility] CHLORIDE 103 98 - 109 mmol/L 03/23/2025 6:24 AM [facility] CARBON DIOXIDE 27 22 - 32 mmol/L 03/23/2025 6:24 AM [facility] ANION GAP 4(L) 5 - 15 mmol/L 03/23/2025 6:24 AM [facility] BLOOD UREA NITROGEN 21 5 - 23 mg/dL 03/23/2025 6:24 AM [facility] CREATININE 0.62(L) 0.70 - 1.20 mg/dL 03/23/2025 6:24 AM [facility] Comment:METHOD TRACEABLE TO IDCO STANDARD GLUCOSE 146(H) 65 - 99 mg/dL 03/23/2025 6:24 AM [facility] CALCIUM 8.7 8.5 - 10.5 mg/dL 03/23/2025 6:24 AM [facility] TOTAL PROTEIN 6.2 6.0 - 8.0 g/dL 03/23/2025 6:24 AM [facility] ALBUMIN 3.0(L) 3.2 - 5.3 g/dL 03/23/2025 6:24 AM [facility] ALKALINE PHOSPHATASE 63 39 - 130 U/L 03/23/2025 6:24 AM [facility] AST 17 <=41 U/L 03/23/2025 6:24 AM [facility] ALT 21 <=40 U/L 03/23/2025 6:24 AM [facility] BILIRUBIN,TOTAL 0.5 0.3 - 1.2 mg/dL 03/23/2025 6:24 AM [facility] EGFR Non-Race Dependent >90 >=60 ml/min/1.7 3sq.m 03/23/2025 6:24 AM [facility] Comment: eGFR not reported due to non-numeric value for Creatinine. Reported eGFR is based on the CKD-EPI 2020 equation that does not use a race coefficient. Blood 03/23/2025 5:58 AM EDT 03/23/2025 6:03 AM EDT us Turner Quinones MD LAB BLOOD ORDERABLES Final Res ult Performing Organization Address [facility]/[place] [address], [place] * (ABNORMAL) Bedside Glucose *Place/Obtain serum glucose if >500 per glucometer. (03/22/2025 8:15 PM EDT) Bedside Glucose (POC) 136(H) 65 - 99 mg/dL 03/22/2025 8:16 PM EDT [facility] arterial/capilla ry 03/22/2025 8:15 PM EDT 03/22/2025 8:16 PM EDT us Turner Quinones MD POINT OF CARE TEST ORDERABLES Final Result Performing Organization Address [facility] [place] [address], [place] * (ABNORMAL) Bedside Glucose *Place/Obtain serum glucose if >500 per glucometer. (03/22/2025 6:30 PM EDT) Bedside Glucose (POC) 150(H) 65 - 99 mg/dL 03/22/2025 6:32 PM EDT [facility] arterial/capilla ry 03/22/2025 6:30 PM EDT 03/22/2025 6:32 PM EDT us Turner Quinones MD POINT OF CARE TEST ORDERABLES Final Result Performing Organization Address [facility] [place] [address], [place] * (ABNORMAL) Drug Screen, Urine (03/22/2025 10:22 AM EDT) Pathologist [facility] AMPHETAMINE/METHAM P Negative Negative 03/22/2025 11:07 AM [facility] Comment:AMPH/METH screening cut off = 1000 ng/mL COCAINE METABOLITE Negative Negative 2024 11:07 AM [facility] Comment:Cocaine screening cu t off value = 300 ng/mL ECSTASY Negative Negative 03/22/2025 11:07 AM [facility] Comment:Ecstasy screening cu t off value = 500 ng/mL METHADONE Negative Negative 03/22/2025 11:07 AM [facility] Comment:Methadone screening cut off value = 300 ng/mL. OPIATES Positive(A) Negative 03/22/2025 11:07 AM [facility] Comment: Opiates screening cut off value = 300 ng/mL This test is used for the detection of codeine, hydrocodone (>1000 ng/mL), morphine and hydromorphone (>900 ng/mL) in urine. OXYCODONE Negative Negative 03/22/2025 11:07 AM [facility] Comment: Oxycodone screening cut off value = 300 ng/mL This test is used for the detection of oxycodone and oxymorphone in urine. PHENCYCLIDINE Negative Negative 03/22/2025 11:07 AM [facility] Comment:Phencyclidine screen ing cut off value = 25 ng/mL CANNABINOIDS Positive(A) Negative 03/22/2025 11:07 AM [facility] Comment:Cannabinoids/THC scr eening cut off value = 50 ng/mL Urine Barbiturates Negative Negative 2024 11:07 AM [facility] Comment:Barbiturates screeni ng cut off value = 200 ng/mL BENZODIAZEPINES Negative Negative 11:07 AM [facility] Comment:Benzodiazepines scre ening cut off value = 200 ng/mL Urine 03/22/2025 10:2 2 AM EDT 03/22/2025 10:29 AM EDT [facility] - 03/22/2025 11:07 AM EDT Confirmation available upon request. Turner Quinones MD URINE ORDERABLES Final Result Performing Organization Address City/[facility]/[place] [address], [place] * (ABNORMAL) Bedside Glucose *Place/Obtain serum glucose if >500 per glucometer. (03/22/2025 6:07 AM EDT) Bedside Glucose (POC) 129(H) 65 - 99 mg/dL 03/22/2025 6:08 AM EDT [facility] arterial/capilla ry 03/22/2025 6:07 AM EDT 03/22/2025 6:08 AM EDT Turner Quinones MD POINT OF CARE TEST ORDERABLES Final Result Performing Organization Address [facility] [place] [address], [place] * (ABNORMAL) CBC auto differential (03/22/2025 5:29 AM EDT) WBC 10.7 4 - 11 x10E9/L 03/22/2025 5:35 AM EDT [facility] RBC Count 4.08(L) 4.1 - 5.7 X10E12/L 03/22/2025 5:35 AM T [facility] Hemoglobin 12.1(L) 13 - 17 g/dL 03/22/2025 5:35 AM T [facility] Hematocrit 35.0(L) 39 - 50 % 03/22/2025 5:35 AM [facility] MCV 86 80 - 100 fL 03/22/2025 5:35 AM T [facility] MCH 29.6 27 - 34 pg 03/22/2025 5:35 AM T [facility] MCHC 34.5 32 - 36 g/dL 03/22/2025 5:35 AM [facility] RDW 13.0 11.5 - 15 % 03/22/2025 5:35 AM T [facility] Platelet Count 269 150 - 450 X10E9/L 03/22/2025 5:35 AM EDT [facility] MPV 6.5(L) 7 - 12 fL 03/22/2025 5:35 AM EDT [facility] Neutrophils Relative 91.0 % 03/22/2025 5:35 AM EDT [facility] Lymphocytes Relative 6.2 % 03/22/2025 5:35 AM EDT [facility] Monocytes Relative 2.7 % 03/22/2025 5:35 AM EDT [facility] Eosinophils Relative 0.0 % 03/22/2025 5:35 AM EDT [facility] Basophils Relative 0.1 % 03/22/2025 5:35 AM EDT [facility] Neutrophils Absolute (A) 9.8(H) 1.5 - 6.6 10*3/uL 03/22/2025 5:35 AM EDT [facility] Lymphocytes Absolute 0.7(L) 1.0 - 3.5 10*3/uL 03/22/2025 5:35 AM EDT [facility] Monocytes Absolute 0.3 0.0 - 0.9 10*3/uL 03/22/2025 5:35 AM EDT [facility] Eosinophils Absolute 0.0 0.0 - 0.4 10*3/uL 03/22/2025 5:35 AM EDT [facility] Basophils Absolute 0.0 0.0 - 0.2 10*3/uL 03/22/2025 5:35 AM EDT [facility] Differential Type AUTOMATED DIFFERENTIAL 03/22/2025 5:35 AM EDT [facility] Blood 03/22/2025 5:29 AM EDT 03/22/2025 5:32 AM EDT us Turner Quinones MD LAB BLOOD ORDERABLES Final Res ult [address] [address], * Magnesium (03/22/2025 5:29 AM EDT) MAGNESIUM 1.8 1.8 - 2.6 mg/dL 03/22/2025 5:58 AM T [facility] Blood 03/22/2025 5:29 AM EDT 03/22/2025 5:32 AM EDT us Turner Quinones MD LAB BLOOD ORDERABLES Final Res ult [address] [address], * (ABNORMAL) Comprehensive metabolic panel (03/22/2025 5:29 AM EDT) SODIUM 138 134 - 146 mmol/L 03/22/2025 5:58 AM EDT [facility] POTASSIUM 4.1 3.5 - 5.0 mmol/L 03/22/2025 5:58 AM EDT [facility] CHLORIDE 110(H) 98 - 109 mmol/L 03/22/2025 5:58 AM EDT [facility] CARBON DIOXIDE 25 22 - 32 mmol/L 03/22/2025 5:58 AM T [facility] ANION GAP 3(L) 5 - 15 mmol/L 03/22/2025 5:58 AM T [facility] BLOOD UREA NITROGEN 16 5 - 23 mg/dL 03/22/2025 5:58 AM [facility] CREATININE 0.63(L) 0.70 - 1.20 mg/dL 03/22/2025 5:58 AM T [facility] Comment:METHOD TRACEABLE TO IDMS STANDARD GLUCOSE 138(H) 65 - 99 mg/dL 03/22/2025 5:58 AM EDT [facility] CALCIUM 8.5 8.5 - 10.5 mg/dL 03/22/2025 5:58 AM [facility] TOTAL PROTEIN 6.0 6.0 - 8.0 g/dL 03/22/2025 5:58 AM [facility] ALBUMIN 2.9(L) 3.2 - 5.3 g/dL 03/22/2025 5:58 AM EDT [facility] ALKALINE PHOSPHATASE 56 39 - 130 U/L 03/22/2025 5:58 AM EDT [facility] AST 21 <=41 U/L 03/22/2025 5:58 AM EDT [facility] ALT 16 <=40 U/L 03/22/2025 5:58 AM EDT [facility] BILIRUBIN,TOTAL 0.6 0.3 - 1.2 mg/dL 03/22/2025 5:58 AM EDT [facility] EGFR Non-Race Dependent >90 >=60 ml/min/1.7 3sq.m 03/22/2025 5:58 AM EDT [facility] Comment: Reported eGFR is based on the CKD-EPI 2020 equation that does not use a race coefficient. Blood 03/22/2025 5:29 AM EDT 03/22/2025 5:32 AM EDT us Turner Quinones MD LAB BLOOD ORDERABLES Final Res ult Performing Organization Address City/[facility]/[place] [address], [place] * (ABNORMAL) Bedside Glucose *Place/Obtain serum glucose if >500 per glucometer. (03/22/2025 12:10AM EDT) Bedside Glucose (POC) 115(H) 65 - 99 mg/dL 03/22/2025 12:15 AM EDT [facility] arterial/capilla ry 03/22/2025 12:10 AM EDT 03/22/2025 12:15 AM EDT us Turner Quinones MD POINT OF CARE TEST [place] [address], [place] * (ABNORMAL) Bedside Glucose *Place/Obtain serum glucose if >500 per glucometer. (03/21/2025 5:02 PM EDT) Bedside Glucose (POC) 108(H) 65 - 99 mg/dL 03/21/2025 5:05 PM EDT [facility] arterial/capilla ry 03/21/2025 5:02 PM EDT 03/21/2025 5:05 PM EDT us Turner Quinones MD POINT OF CARE TEST ORDERABLES Final Result Performing Organization Address [facility]/[place] [address], [place] * Magnesium (03/21/2025 4:28 PM EDT) MAGNESIUM 1.9 1.8 - 2.6 mg/dL 03/21/2025 4:48 PM EDT [facility] Blood Venous blood / Unknown Venipuncture / Unknown 03/21/2025 4:28 PM EDT 03/21/2025 4:34 PM EDT us Turner Quinones MD LAB BLOOD ORDERABLES Final Res ult Performing Organization Address [facility]/[place] [address], [place] * Potassium (03/21/2025 4:28 PM EDT) POTASSIUM 3.8 3.5 - 5.0 mmol/L 03/21/2025 4:47 PM EDT [facility] Blood Venous blood / Unknown Venipuncture / Unknown 03/21/2025 4:28 PM EDT 03/21/2025 4:34 PM EDT us Turner Quinones MD LAB BLOOD ORDERABLES Final Res ult Performing Organization Address [facility] [place] [address], [place] * Bedside Glucose *Place/Obtain serum glucose if >500 per glucometer. (03/21/2025 2:57 PM EDT) Bedside Glucose (POC) 88 65 - 99 mg/dL 03/21/2025 3:00 PM EDT [facility] arterial/capilla ry 03/21/2025 2:57 PM EDT 03/21/2025 2:59 PM EDT us Turner Quinones MD POINT OF CARE TEST ORDERABLES Final Result [address] [id number], documented in this encounter Visit Diagnoses Diagnosis Crohn's colitis, with intestinal obstruction (CMS-HCC) Intractable abdominal pain Severe protein-calorie malnutrition Other severe protein-calorie malnutrition Abdominal pain Abdominal pain, unspecified site History of Crohn's disease Crohn's disease of colon without complication (CMS-HCC) Poor appetite Anorexia Hypoalbuminemia Other disorders of plasma protein metabolism Leukocytosis Leukocytosis, unspecified Elevated glucose Other abnormal glucose Cannabis abuse, episodic documented in this encounter Admitting Diagnoses Diagnosis Crohn's colitis ([facility]-HCC) Regional enteritis of large intestine documented in this encounter Administered Medications Inactive Administered Medications - up to 3 most recent administrations Medication Order MAR Action Action Date Dose Rate Site HYDROmorphone (PF) (DILAUDID) injection 0.2 mg 0.2 mg, intravenous, Every 4 hours PRN, moderate pain - pain scale 4-6, Starting on Mon03/24/25 at 0859, If IV push, administer over over 2 to 3 minutes. Look-alike/sound-alike medication - verify indication for use. HYDROmorphone (PF) (DILAUDID) injection 0.5 mg 0.5 mg, intravenous, Every 4 hours PRN, severe pain - pain scale 7-10, Starting on Mon03/21/25 at 1202, If IV push, administer over over 2 to 3 minutes. Look-alike/sound-alike medication - verify indication for use. Given 03/21/2025 11:10 PM EDT 0.5 mg Given 03/21/2025 7:12 PM EDT 0.5 mg Given 03/21/2025 2:43 PM EDT 0.5 mg HYDROmorphone (PF) (DILAUDID) injection 0.5 mg 0.5 mg, intravenous, Every 3 hours PRN, severe pain - pain scale 7-10, Starting on Mon03/22/25 at 0239, If IV push, administer over over 2 to 3 minutes. Look-alike/sound-alike medication - verify indication for use. Given 03/22/2025 9:13 AM EDT 0.5 mg Given 03/22/2025 6:17 AM EDT 0.5 mg Given 03/22/2025 3:00 AM EDT 0.5 mg HYDROmorphone (PF) (DILAUDID) injection 0.5 mg 0.5 mg, intravenous, Every 3 hours PRN, moderate pain - pain scale 4-6, Starting on 03/22/25 at 0952, If IV push, administer over over 2 to 3 minutes. Look-alike/sound-alike medication - verify indication for use. Given 03/24/2025 6:19 AM EDT 0.5 mg Given 03/24/2025 12:30 AM EDT 0.5 mg HYDROmorphone (PF) (DILAUDID) injection 0.5 mg 0.5 mg, intravenous, Every 4 hours PRN, severe pain - pain scale 7-10, Starting on Mon03/24/25 at 0859, If IV push, administer over over 2 to 3 minutes. Look-alike/sound-alike medication - verify indication for use. Given 03/24/2025 9:22 AM EDT 0.5 mg HYDROmorphone (PF) (DILAUDID) injection 1 mg 1 mg, intravenous, Every 3 hours PRN, severe pain - pain scale 7-10, Starting on 03/22/25 at 0952, If IV push, administer over over 2 to 3 minutes. Look-alike/sound-alike medication - verify indication for use. Given 03/23/2025 9:03 PM EDT 1 mg Given 03/23/2025 5:21 PM EDT 1 mg Given 03/23/2025 2:05 PM EDT 1 mg magnesium oxide (MAGOX) tablet 400 mg 400 mg, oral, Daily, First dose on Mon03/24/25 at 1300 Given 03/24/2025 2:45 PM EDT 400 mg methylPREDNISolone sod suc(PF) (Solu-MEDROL) injection 60 mg 60 mg, intravenous, Every 8 hours scheduled, First dose (after last modification) on Mon03/21/25 at 1400, May alter blood glucose or insulin requirements. Look-alike/sound-alike medication - verify indication for use. Given 03/24/2025 6:19 AM EDT 60 m g Given 03/23/2025 9:03 PM EDT 60 mg Given 03/23/2025 2:05 PM EDT 60 mg nicotine (NICODERM CQ) 21 mg/24 hr 1 patch 1 patch, transdermal, Administer over 24 Hours, Daily, First dose on Mon03/22/25 at 0900, Remove patch prior to MRI procedure as serious hernandez may occur- patch may be reapplied. Remove previous patch, if present, before applying new. Medication Applied 03/24/2025 9:15 AM EDT 1 patch Right Arm Medication Applied 03/23/2025 7:41 AM EDT 1 patch Left Arm Medication Applied 03/22/2025 8:00 AM EDT 1 patch Left Arm ondansetron (PF) (ZOFRAN) injection 4 mg 4 mg, intravenous, Every 4 hours PRN, nausea, vomiting, Starting on Mon03/21/25 at 1202, Intravenous administration preferred to be given over 2-5 minutes. Given 03/24/2025 9:20 AM EDT 4 mg Given 03/24/2025 12:30 AM EDT 4 mg Given 03/23/2025 2:19 PM EDT 4 mg potassium chloride (K-TAB,KLOR-CON) CR tablet 30-40 mEq 30-40 mEq, oral, As needed, Potassium Supplementation, Starting on Mon03/21/25 at 1202, Progress to oral potassium replacement when patient [...] greater=50 mEq. Do not crush or chew. potassium chloride (KAYCIEL) 20 mEq/15 mL solution 30-40 mEq 30-40 mEq, oral, As needed, Potassium Supplementation, Starting on Mon03/21/25 at 1202, Progress to oral potassium replacement when patient [...] policy and monitor potassium levels potassium chloride IVPB 10 mEq/100 mL in water (0.1 mEq/mL premix) 10 mEq, intravenous, at 100 mL/hr, Administer over 60 Minutes, As needed, POTASSIUM REPLACEMENT, Starting on Mon03/21/25 at 1202, IV if unable to use oral/enteral with [...] mEq over a minimum of 1 hour. sodium chloride 0.9 % flush 10 mL 10 mL, intravenous, As needed, line care, Starting on Mon03/21/25 at 1202 Given 03/24/2025 9:22 AM EDT 10 mL Given 03/23/2025 2:05 PM EDT 10 mL Given 03/23/2025 11:27 AM EDT 10 mL sodium chloride 0.9 % infusion 125 mL/hr, intravenous, Continuous, Starting on Mon03/21/25 at 1215, For 15 hours New Bag 03/21/2025 7:22 PM EDT 125 mL/hr 12 5 mL/hr New Bag 03/21/2025 12:27 PM EDT 125 mL/hr 125 mL/hr documented in this encounter Active and Recently Administered Medications Times are shown in EDT. Scheduled Medication Order 03/22/2025 03/23/2025 03/24/2025 magnesium oxide (MAGOX) tablet 400 mg 400 mg, oral, Daily, First dose on Mon03/24/25 at 1300 1445 (Given - Provid er: Raysa Carpio RN) methylPREDNISolone sod suc(PF) (Solu-MEDROL) injection 60 mg 60 mg, intravenous, Every 8 hours scheduled, First dose (after last modification) on Mon03/21/25 at 1400, May alter blood glucose or insulin requirements. Look-alike/sound-raul e medication - verify indication for use. 0617 (Given - Provider: Kristal Newsome RN)1345 (Given - Provider: Abbey Dee RN)2228 (Given - Provider: Kristal Newsome RN) 0613 (Given - Provider: Kristal Newsome RN)1405 (Given - Provider: Abbey Dee RN)2103 (Given - Provider: Kristal Newsome, RN) 0619 (Given - Provider: Kristal Newsome RN)1400 (Not Given - Provider: Raysa Carpio RN - Reason: Loss of IV access)1533 (Not Given - Provider: Raysa Carpio RN - Reason: Loss of IV access) nicotine (NICODERM CQ) 21 mg/24 hr 1 patch 1 patch, transdermal, Administer over 24 Hours, Daily, First dose on Mon03/22/25 at 0900, Remove patch prior to MRI procedure as serious hernandez may occur- patch may be reapplied. Remove previous patch, if present, before applying new. 0800 (Medication Applied - Provider: Abbey Dee RN) 0740 (Medication Removed - Provider: Abbey Dee RN)0741 (Medication Applied - Provider: Abbey Dee RN)0745 (Medication Removed - Provider: Abbey Dee RN)0900 (Canceled Entry - Provider: Abbey Dee RN) 0915 (Medication Applied - Provider: Raysa Carpio RN)1700 (Due: Medication Removed - Provider: Automatic Discharge Provider - Comment: Time automatically adjusted from order being discontinued) PRN Medication Order 03/22/2025 03/23/2025 03/24/2025 acetaminophen (TYLENOL) tablet 650 mg 650 mg, oral, Every 4 hours PRN, headaches, mild pain - pain scale 1-3, Temperature greater than 38.3 C, Starting on Mon03/21/25 at 1202, [Warning: Total Acetaminophen not to exceed more than 4 grams (4000 mg) in 24 hours] alum-mag hydroxide-simeth (MAALOX) 200-200-20 mg/5 mL suspension 30 mL 30 mL, oral, 4 times daily after meals and at bedtime as needed, dyspepsia, Starting on Mon03/21/25 at 1202, Look-alike/sound-alike medication - verify indication for use. Shake well., Indications: dyspepsia dextrose (GLUTOSE) 40 % gel 15 g 15 g, oral, As needed, low blood sugar, blood glucose less than 70 mg/dL, Starting on Mon03/21/25 at 1202, If patient conscious and taking PO. If blood glucose is not greater than 70 mg/dL after initial treatment, repeat treatment. dextrose 5 % (D5W) infusion 100 mL/hr, intravenous, Continuous PRN, blood glucose less than 70 mg/dL, Starting on Mon03/21/25 at 1202, Use immediately following dextrose 50% or glucagon [...] with IV access, Starting on Mon03/21/25 at 1202, Push over 1-3 minutes STAT. If conscious [...] without IV access., Starting on Mon03/21/25 at 1202, If conscious and not NPO, immediately follow with meal tray or high protein (7Grams) snack if tray not available. If NPO, initiate IV 5% Dextrose/Water at 100 mL/hr and contact prescriber for additional orders. If blood glucose is not greater than 70 mg/dL after initial treatment, repeat treatment. HYDROmorphone (PF) (DILAUDID) injection 0.2 mg 0.2 mg, intravenous, Every 4 hours PRN, moderate pain - pain scale 4-6, Starting on 03/24/25 at 0859, If IV push, administer over over 2 to 3 minutes. Look-alike/sound-alike medication - verify indication for use. HYDROmorphone (PF) (DILAUDID) injection 0.5 mg (CANCELED) 0.5 mg, intravenous, Every 3 hours PRN, severe pain - pain scale 7-10, Starting on 03/22/25 at 0239, If IV push, administer over over 2 to 3 minutes. Look-alike/sound-alike medication - verify indication for use. 0300 (Given - Provider: Kristal Newsome RN)0617 (Given - Provider: Kristal Newsome RN)0913 (Given - Provider: Abbey Dee RN) HYDROmorphone (PF) (DILAUDID) injection 0.5 mg (CANCELED) 0.5 mg, intravenous, Every 3 hours PRN, moderate pain - pain scale 4-6, Starting on 03/22/25 at 0952, If IV push, administer over over 2 to 3 minutes. Look-alike/sound-alike medication - verify indication for use. 1112 (See Alternative - Provider: Abbey Dee RN)1345 (See Alternative - Provider: Abbey Dee RN)1706 (See Alternative - Provider: Abbey Dee RN)2008 (See Alternative - Provider: Kristal Newsome RN)2316 (See Alternative - Provider: Kristal Newsome RN) 0404 (See Alternative - Provider: Kristal Newsome RN)0744 (See Alternative - Provider: Abbey Dee RN)1127 (See Alternative - Provider: Abbey Dee RN)1405 (See Alternative - Provider: Abbey Dee RN)1721 (See Alternative - Provider: Abbey Dee RN)2103 (See Alternative - Provider: Kristal Newsome RN) 0030 (Given - Provider: Kristal Newsome RN)0619 (Given - Provider: Kristal Newsome RN) HYDROmorphone (PF) (DILAUDID) injection 0.5 mg(Linked Group 1) 0.5 mg, intravenous, Every 4 hours PRN, severe pain - pain scale 7-10, Starting on 03/24/25 at 0859, If IV push, administer over over 2 to 3 minutes. Look-alike/sound-alike medication - verify indication for use. 0922 (Given - Provider: Raysa Carpio RN) HYDROmorphone (PF) (DILAUDID) injection 1 mg (CANCELED) 1 mg, intravenous, Every 3 hours PRN, severe pain - pain scale 7-10, Starting on Mon03/22/25 at 0952, If IV push, administer over over 2 to 3 minutes. Look-alike/sound-alike medication - verify indication for use. 1112 (Given - Provider: Abeby Dee RN)1345 (Given - Provider: Abbey Dee RN)1706 (Given - Provider: Abbey Dee RN)2008 (Given - Provider: Kristal Newsome RN)2316 (Given - Provider: Kristal Newsome RN) 0404 (Given - Provider: Kristal Newsome RN)0744 (Given - Provider: Abbey Dee RN)1127 (Given - Provider: Abbey Dee RN)1405 (Given - Provider: Abbey Dee RN)1721 (Given - Provider: Abbey Dee RN)2103 (Given - Provider: Kristal Newsome, BRANDON) 0030 (See Alternative - Provider: Kristal Newsome RN)0619 (See Alternative - Provider: Kristal Newsome RN) magnesium sulfate IVPB 2000 mg/50 mL in iso-osmotic water (40 mg/mL premix) 2,000 mg, intravenous, at 25 mL/hr, Administer over 120 Minutes, As needed, Magnesium level 1.7 to 1.9 mg/dL, or Ionized Magnesium level 0.45 to 0.5 mmol/L., Starting on Mon03/21/25 at 1202, Recheck magnesium level 4 hours after infusion complete. With each magnesium result continue the replacement orders as needed. 1022 (Not Given - Provider: Raysa Carpio RN - Reason: Patient/family refused) magnesium sulfate IVPB 4000 mg/100 mL in iso-osmotic water (40 mg/mL premix) 4,000 mg, intravenous, at 25 mL/hr, Administer over 240 Minutes, As needed, Magnesium level 1.6 mg/dL or less, or Ionized Magnesium level 0.44 mmol/L or less, Starting on Mon03/21/25 at 1202, Recheck magnesium level 4 hours after infusion complete. With each magnesium result continue the replacement orders as needed. ondansetron (PF) (ZOFRAN) injection 4 mg 4 mg, intravenous, Every 4 hours PRN, nausea, vomiting, Starting on Mon03/21/25 at 1202, Intravenous administration preferred to be given over 2-5 minutes. 1202 (Given - Provider: Abbey Dee RN)1831 (Given - Provider: Abbey Dee RN) 1419 (Given - Provider: Abbey Dee RN) 0030 (Given - Provider: Kristal Newsome, BRANDON)0920 (Given - Provider: Raysa Carpio RN) potassium chloride (K-TAB,KLOR-CON) CR tablet 30-40 mEq(Linked Group 2) 30-40 mEq, oral, As needed, Potassium Supplementation, Starting on Mon03/21/25 at 1202, Progress to oral potassium replacement when patient [...] greater=50 mEq. Do not crush or chew. potassium chloride (KAYCIEL) 20 mEq/15 mL solution 30-40 mEq(Linked Group 2) 30-40 mEq, oral, As needed, Potassium Supplementation, Starting on Mon03/21/25 at 1202, Progress to oral potassium replacement when patient [...] policy and monitor potassium levels potassium chloride IVPB 10 mEq/100 mL in water (0.1 mEq/mL premix)(Linked Group 2) 10 mEq, intravenous, at 100 mL/hr, Administer over 60 Minutes, As needed, POTASSIUM REPLACEMENT, Starting on Mon03/21/25 at 1202, IV if unable to use oral/enteral with [...] hours PRN, constipation, Starting on Mon03/21/25 at 1202 sodium chloride 0.9 % flush 10 mL 10 mL, intravenous, As needed, line care, Starting on Mon03/21/25 at 1202 0913 (Given - Provider: Abbey Dee RN) 1127 (Given - Provider: Abbey Dee RN)1405 (Given - Provider: Abbey Dee RN) 0922 (Given - Provider: Raysa Carpio RN) sodium chloride 0.9 % flush bag 25 mL, intravenous, at 100 mL/hr, Administer over 15 Minutes, As needed, line care, line care after IVPB administration, Starting on Mon03/21/25 at 1202 sodium chloride 0.9 % infusion 20 mL/hr, intravenous, Continuous PRN, to maintain patency of lines, Starting on Mon03/21/25 at 1202 Linked Groups Order Group 1: HYDROmorphone (PF) (DILAUDID) injection 0.5 mgJump to med 0.5 mg, intravenous, Every 4 hours PRN, severe pain - pain scale 7-10, Starting on Mon03/24/25 at 0859, If IV push, administer over over 2 to 3 minutes. Look-alike/sound-alike medication - verify indication for use. Group 2: potassium chloride (K-TAB,KLOR-CON) CR tablet 30-40 mEqJump to med 30-40 mEq, oral, As needed, Potassium Supplementation, Starting on Mon03/21/25 at 1202, Progress to oral potassium replacement when patient [...] needed, Potassium Supplementation, Starting on Mon03/21/25 at 1202, Progress to oral potassium replacement when patient [...] needed, POTASSIUM REPLACEMENT, Starting on Mon03/21/25 at 1202, IV if unable to use oral/enteral with [...] documented as of this encounter Care Teams Pre Press Operator Relationship Specialty Start Date End Date Casey Carpio MD [address] [place] [address] PCP - General Family Medicine 03/09/25 documented as of this encounter
--- OUTSIDE RECORDS SUMMARY | 2025-03-26 12:00 | XMS_ITS | Encounter Summary ---
Author [facility] [employer] [facility] [id number] [address] [place] [address] Care Team Providers Care Industrial Maintenance Repairer Name Role Phone Tee Gonzales MD Primary Care Provider Reason for Visit * Reason Comments Outpatient Infusion Crohn's Disease [email or web address] * Episode Based Medications (Routine) - Authorized Specialty Diagnoses / Procedures Referred By Contac t Referred To Contact Gastroenterology Diagnoses Crohn's disease of large intestine with intestinal obstruction Procedures [facility] INJ RISANKIZUMAB-RZAA 1 MG Referral ID Status Reason Start Date Expiration Date V isits Requested Visits Authorized [id number] Authorized 03/24/2025 06/09/2025 3 3 Encounter Details Date Type Department Care Team (Late st Contact Info) Description 03/26/2025 12:00 PM EDT Infusion [facility] Infusion [address] [address] Crohn's colitis, with intestinal obstruction ([facility]) (Primary Dx) Social History Tobacco Use Types Packs/Day Years Used Date Smoking Tobacco: Former Cigarettes Smokeless Tobacco: Former Alcohol Use Standard Drinks/Week Comments Not Currently 0 (1 standard drink = 0.6 oz pur e alcohol) Not very much [facility] Utilities Answer Date Recorded In the past 12 months has [employer], gas, oil, or water company threatened to [...] Sign Reading Time Taken Comments Blood Pressure 102/65 03/26/2025 1:30 PM EDT Pulse 73 03/26/2025 1:30 PM EDT Temperature 36.7 C (98 F) 03/26/2025 1:30 PM EDT Respiratory Rate 20 03/26/2025 1:30 PM EDT Oxygen Saturation - - Inhaled Oxygen Concentration - - Weight 68 kg (150 lb) 03/26/2025 12:00 PM EDT Height - - Body Mass Index 21.52 03/20/2025 8:37 PM EDT documented in this encounter Progress Notes * Maureen Quinonez RN - 03/26/2025 12:00 PM EDT Infusion start time: 12:30 pm Patient here for his first Skyrizi induction infusion. Patient deniesany recent infections or on antibiotics, open wounds, recent/future surgery, vaccinations or insurance changes. 12:10 pm IV started with 22g needle to right AC by BRANDON Reddy x1 attempt. Patient tolerated well. Skyrizi 600 mg x 1 vial Lot# [id number] Exp- 09/14/26 Time out performed prior to medication administration. Name, , medication(s) verified * Maureen Quinonez RN - 03/26/2025 12:00 PM EDT 1330 patient infusion complete. IV flushed with normal saline. 1333 IV infusion completed. IV discontinued, catheter intact, vitals WNL. Patient tolerated infusion well Ariana Clements CNP was present in infusion suite during infusion and immediately available documented in this encounter Plan of Treatment Upcoming Encounters Date Type Department Care Team (Latest Contact Info) Description 04/10/2025 8:30 AM EDT Hospital Encounter [facility] - Endoscopy [address] [place] [address], [address] [place] [address] [place] [address] [place] [address], [address] [place] [address] 04/10/2025 8:30 AM EDT - 04/10/2025 9:00 AM EDT Surgery [facility] - Endoscopy [address] [place] [address], [address] [place] [address] [place] [address] [place] [address], [address] [place] [address] ESOPHAGOGASTRODUODENOSCOPY DIAGNOSTIC [31250 (CPT )] 04/23/2025 11:00 AM EDT Infusion [facility] Infusion [address] [place] [address] [address] [place] [address] 05/20/2025 9:15 AM EDT Office Visit [facility], A Department of [facility] [address] [place] [address] [address] [place] [address] Elen Rodarte MD [address] [facility], [address] [place] [address] 05/21/2025 11:00 AM EDT Infusion [facility] Infusion [address] [place] [address] [address] [place] [address] Scheduled Procedures Name Priority Associated Diagnoses Date/Ti me ESOPHAGOGASTRODUODENOSCOPY DIAGNOSTIC Crohn's disease of both small and large intestine without complication (CMS-HCC) [K50.80] - Primary 04/10/2025 8:30 AM EDT COLONOSCOPY DIAGNOSTIC / SCREENING Crohn's disease of both small and large intestine without complication (CMS-HCC) [K50.80] - Primary 04/10/2025 8:30 AM EDT documented as of this encounter Goals Goal Patient Goal Type Associated Problems Recent Progress Patient-Stated? Author Return home General Yes Lexie Frausto LSW Note: Evaluation of progress towards goal: In progress: Return home, self care. documented as of this encounter Visit Diagnoses Diagnosis Crohn's colitis, with intestinal obstruction (CMS-HCC)- Primary documented in this encounter Administered Medications Inactive Administered Medications - up to 3 most recent administrations Medication Order MAR Action Action Date Dose Rate Site risankizumab-rzaa (SKYRIZI) 600 mg in sodium chloride 0.9 % (PVC) 250 mL IVPB 600 mg, intravenous, at 260 mL/hr, Administer over 1 Hours, Once, On Mon03/26/25 at 1245, For 1 dose, Look-alike/sound-alike medication - verify indication for use.Indications:Crohn's colitis, with intestinal obstruction (CMS-HCC) New Bag 03/26/2025 12:30 PM EDT 600 mg 260 mL/hr sodium chloride 0.9 % infusion 25 mL/hr, intravenous, Continuous PRN, When mainline IV needed., Starting on Mon03/26/25 at 1237, Match IVF to base solution of product being administered to ensure compatibility.Indications:Cr ohn's colitis, with intestinal obstruction (CMS-HCC) New Bag 03/26/2025 12:10 PM EDT 25 mL/hr 25 mL/hr documented in this encounter Additional Health Concerns Assessment Noted Time PHQ-9 Depression Total Score: 3 07/15/20 24 3:19 PM EDT documented as of this encounter Care Teams Industrial Maintenance Repairer Relationship Specialty Start Date End Date Tee Gonzales MD [address] [place] [address] PCP - General Family Medicine 03/09/25 documented as of this encounter
[2025-03-28 18:31] VITALS: BP 133/72; PULSE 86; TEMP 37; O2SAT 100; BMI 21.5
--- OUTSIDE RECORDS SUMMARY | 2025-03-28 18:34 | XMS_ITS | Encounter Summary ---
Author Organization [employer] Address [facility] [id number] [address] [place] [address] Care Team Providers Care Digital Librarian Name Role Phone Tee Gonzales MD Primary Care Provider [phone] Encounter Details Date Type Department Care Team (Latest Contact Info) Description 03/21/2025 Travel Social History Tobacco Use Types Packs/Day Years Used Date Smoking Tobacco: Former Cigarettes Smokeless Tobacco: Former Alcohol Use Standard Drinks/Week Comments Not Currently 0 (1 standard drink = 0.6 oz pur e alcohol) Not very much [facility] Utilities Answer Date Recorded In the past 12 months has [employer], gas, oil, or water [employer] threatened to shut off services in your [...] on file documented as of this encounter Functional Status documented as of this encounter Plan of Treatment Upcoming Encounters Date Type Department Care Team (Latest Contact Info) Description 04/10/2025 8:30 AM EDT Hospital Encounter [facility] - Endoscopy [address] [place] [address], [address] [place] [address] Elen Rodarte MD [address] [place] [address], [address] [place] [address] 04/10/2025 8:30 AM EDT - 04/10/2025 9:00 AM EDT Surgery [facility] - Endoscopy [address] [place] [address], [address] [place] [address] Elen Rodarte MD [address] [place] [address], [address] [place] [address] ESOPHAGOGASTRODUODENOSCOPY DIAGNOSTIC [88997 (CPT )] 04/23/2025 11:00 AM EDT Infusion [facility] Infusion [address] [place] [address] [address] [place] [address] 05/20/2025 9:15 AM EDT Office Visit [facility], A Department of [address] [place] [address] Elen Rodarte MD [address] [place] [address], [address] [place] [address] 05/21/2025 11:00 AM EDT Infusion [facility] Infusion [address] [place] [address] [address] [place] [address] Scheduled Procedures Name Priority Associated Diagnoses Date/Ti [...] documented as of this encounter Visit Diagnoses Not on filedocumented in this encounter Additional Health Concerns Assessment Noted Time PHQ-9 Depression Total Score: 3 07/15/20 24 3:19 PM EDT documented as of this encounter Care Teams Digital Librarian Relationship Specialty Start Date End Date Tee Gonzales MD [address] [place] [address] PCP - General Family Medicine 03/09/25 documented as of this encounter
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
--- OUTSIDE RECORDS SUMMARY | 2025-03-28 18:34 | XMS_ITS | Encounter Summary ---
Author Organization [facility] Address [address] [place] [address] Care Team Providers Care Automotive Hardware Engineer Name Role Phone Malik Madison MD Primary Care Provider [phone] Encounter Details Date Type Department Care Team (Late Contact Info) Description 03/24/[address] [facility] [address] [phone] Noel Taylor MD [address] [place] [address] Social History Tobacco Use Types Packs/Day Years Used Date Smoking Tobacco: Former Cigarettes Q uit: 2015 Smokeless Tobacco: Never Alcohol Use Standard Drinks/Week Comments Yes 0 (1 standard drink = 0.6 oz pur e alcohol) Sex and Gender Information Value Date Recorded Sex Assigned at Not on file Legal Sex Male 7:13 PM EDT Gender Identity Not on file Sexual Orientation Not on file documented as of this encounter Plan of Treatment Upcoming Encounters Date Type Department Care Team (Late Contact Info) Description 03/31/2025 9:30 AM EDT Office Visit [facility] [address] [address] Noel Taylor MD [address] [address] documented as of this encounter Procedures Procedure Name Priority Date/Time Associated Diagnosis Comments GENERAL PATHOLOGY Routine 03/19/2025 4:09 PM EDT documented in this encounter Results * GENERAL PATHOLOGY (03/19/2025 4:09 PM EDT) us Noel Wolff MD [facility] Final Result documented in this encounter Visit Diagnoses Not on filedocumented in this encounter Care Teams Automotive Hardware Engineer Relationship Specialty Start Date End Date Malik Madison MD [address] [place] [phone] PCP - General Family Medicine 02/26/25 documented as of this encounter
--- OUTSIDE RECORDS SUMMARY | 2025-03-28 18:34 | XMS_ITS | Encounter Summary ---
Author Organization [facility] Address [facility]-[id number] [address] [place] [address] Care Team Providers Care Rough Rice Tender Name Role Phone Tee Gonzales MD Primary Care Provider [phone] Encounter Details Date Type Department Care Team (Latest Contact Info) Description 03/20/2025 Travel Social History Tobacco Use Types Packs/Day Years Used Date Smoking Tobacco: Former Cigarettes Smokeless Tobacco: Former Alcohol Use Standard Drinks/Week Comments Not Currently 0 (1 standard drink = 0.6 oz pur e alcohol) Not very much [facility] Utilities Answer Date Recorded In the past 12 months has [employer], gas, oil, or water [employer] threatened to shut off services in your [...] Description 04/10/2025 8:30 AM EDT Hospital Encounter [facility] - Endoscopy [address] [place] [address], [address] [place] [address] Elen Rodarte MD [address] [place] [address], [address] [place] [address] 04/10/2025 8:30 AM EDT - 04/10/2025 9:00 AM EDT Surgery [facility] - Endoscopy [address] [place] [address], [address] [place] [address] Elne Rodarte MD [address] [place] [address], [address] [place] [address] ESOPHAGOGASTRODUODENOSCOPY DIAGNOSTIC [21520 (CPT )] 04/23/2025 11:00 AM EDT Infusion [facility] Infusion [address] [place] [address] [address] [place] [address] 05/20/2025 9:15 AM EDT Office Visit [facility], A Department of [address] [place] [address] Elen Rodarte MD [address] [place] [address], [address] [place] [address] 05/21/2025 11:00 AM EDT Infusion [facility] Infusion [address] [facility] [address] [place] [phone] Scheduled Procedures Name Priority Associated Diagnoses Date/Ti me ESOPHAGOGASTRODUODENOSCOPY DIAGNOSTIC Crohn's disease of both small and large intestine without complication (CMS-HCC) [K50.80] - Primary 04/10/2025 8:30 AM EDT COLONOSCOPY DIAGNOSTIC / SCREENING Crohn's disease of both small and large intestine without complication (CMS-HCC) [K50.80] - Primary 04/10/2025 8:30 AM EDT documented as of this encounter Visit Diagnoses Not on filedocumented in this encounter Additional Health Concerns Assessment Noted Time PHQ-9 Depression Total Score: 3 07/15/20 24 3:19 PM EDT documented as of this encounter Care Teams Rough Rice Tender Relationship Specialty Start Date End Date Tee Gonzales MD [address] [place] [address] PCP - General Family Medicine 03/09/25 documented as of this encounter
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
--- OUTSIDE RECORDS SUMMARY | 2025-03-28 18:34 | XMS_ITS | Patient Health Record ---
Author Organization [facility] Address [address] [place] [address] Care Team Providers Care Government Sales Manager Name Role Phone Kennedy Motley Unavailable [phone] Reason For Referral No Information Social History Tobacco Use: Social History Observation Description Date Details (start date - stop date) Unknown Smoking History Question Answer Notes Smoking Status Uses tobacco in other forms Plan Of Treatment Pending Test Test Name Order Date Knee Immobilizer OTS 08/04/2023 DME - Knee Lat J OTS 08/25/2023 Work Slip w/Restrictions: Samuel burch was seen in my office today and may return to work with the following restrictions: 08/25/2023 Work Slip Return to Work/ Full Duty 09/16 [facility]- PT/OT EVAL AND TREAT 3X/WEEK FOR 6 WEEKS 08/25/2023 Insurance Providers Payer Name Payer Address Payer Phone Subscriber Number Group Number Insured Name Patient Relationship to Insured Coverage Start Date Coverage End Date Medical [facility] [place] [address] [place] [address] [id number] UMER HERNANDEZ Self - patient is the insured Medical (General) History Medical History History ICD Code Heart problems: Anxiety
--- OUTSIDE RECORDS SUMMARY | 2025-03-28 18:34 | XMS_ITS | Encounter Summary ---
Author Organization [facility] Address [address] [place] [address] Care Team Providers Care Pin Setter Name Role Phone Ricky Pfeiffer DO Primary Care Provider [phone] Reason for Referral * Imaging (Routine) - Closed Specialty Diagnoses / Procedures Referred By Contac t Referred To Contact Radiology Diagnoses Left anterior knee pain Procedures MRI KNEE LEFT WO CONTRAST Shyla Mcnally APRN - CNP [address] [place] [address] Phone: tel: fax: Referral ID Status Reason Start Date Expiration Date Visits Re quested Visits Authorized [id number] Closed 08/10/2023 08/09/2024 1 1 Encounter Details Date Type Department Care Team (Latest Contact Info) Description 08/10/2023 Transcribe Orders [facility] [address] [place] [address] Shyla Mcnally APRN - CNP [address] [place] [address] Left anterior knee pain (Primary Dx) Social History Tobacco Use Types Packs/Day Years Used Date Smoking Tobacco: Former Cigarettes 0.3 7 Smokeless Tobacco: Never Alcohol Use Standard Drinks/Week Comments Yes 0 (1 standard drink = 0.6 oz pur e alcohol) MIXED DRINKS COUPLE A YEAR AUDIT-C Answer Date Recorded Q1: How often do you have a drink containing alcohol? Never 06/21/2023 Q2: How many drinks containi ng alcohol do you have on a typical day when you are drinking? Patient does not drink 3 Q3: How often do you have si [...] as of this encounter Plan of Treatment Not on file documented as of this encounter Results * MRI KNEE LEFT WO CONTRAST (08/17/2023 9:48 AM EDT) Anatomical Region Laterality Modality Thigh, Knee, Leg Magnetic Resona nce 08/17/2023 11:1 6 AM EDT Impressions 08/25/2023 10:48 AM EST 1. MRI findings are consistent with a [...] 5. Cruciate and collateral ligaments appear intact. Narrative 08/25/2023 10:48 AM EST EXAM: MRI KNEE LEFT WO CONTRAST COMPARISON: [...] patella inferiorly. There is no Hinton's cyst. Procedure Note Jose M Bowden MD - 08/25/2023 EXAM: MRI KNEE LEFT WO CONTRAST COMPARISON: Left knee x-rays from 07/25/2023. HISTORY: Patellar dislocation after walking down steps 2-3 weeks ago. Persistent left knee pain. TECHNIQUE: Multiplanar and multisequence imaging of the left knee wasperformed without contrast. FINDINGS: There is marked bone marrow edema within the anterolateralaspect of the lateral femoral condyle with a large area of bone marrow edemaconsistent with a severe bony contusion. There appears to be a small nondisplacedfracture along the anterior aspect of the lateral femoral condyle with an adjacentarea of high-grade or full-thickness articular cartilage loss involving the far anterior aspect of the lateral femoral condyle. This area of articular cartilage loss measures 7 mm transversely and 5 mm in AP dimension. There is also a moderate bony contusion involving the inferomedial aspectof the patella with subtle irregularity along the medial cortex of thepatella. This bony contusion pattern is consistent with a recent transient lateral patellar dislocation. There is mild soft tissue edema adjacent to themedial patellofemoral ligament anteriorly near the patellar attachment sitesuspicious for low-grade sprain. The anterior cruciate ligament, posterior cruciate ligament and collateral ligaments are intact. The patellar tendon, distal quadriceps tendon and iliotibial band are intact. Evaluation of the medial meniscus demonstrates no well-defined medialmeniscal tear. The articular cartilage in the medial compartment is intact. No lateral meniscal tear is evident. There appears to be low-gradearticular cartilage loss involving the lateral femoral condyle centrally in additionto the focal area of articular cartilage loss anteriorly described above. There is a small joint effusion. There is mild lateral subluxation of the patella. The tibial tubercle- trochlear groove distance measuresapproximately 18 mm with a somewhat hypoplastic femoral trochlea. There is low-grade articular cartilage loss involving the medial facet of patella inferiorly. There is no Hinton's cyst. IMPRESSION: 1. MRI findings are consistent with a recent transient lateral patellar dislocation as described above with a severe bony contusion of the anterolateral aspect of the lateral femoral condyle and moderate bonycontusion involving the inferior medial aspect of the patella. 2. There is a small nondisplaced fracture involving the anterior aspect ofthe lateral femoral condyle with an adjacent area of high-grade orfull-thickness articular cartilage loss involving the lateral femoral condyle anteriorly measuring 7 x 5 mm. 3. Low-grade sprain of the medial patellofemoral ligament near thepatellar attachment site. There is mild lateral subluxation of the patella with the tibial tubercle-trochlear groove distance measuring 18 mm. 4. No MRI evidence of meniscal tear. 5. Cruciate and collateral ligaments appear intact. us Shyla Mcnally SERVICE ADVOCATE CONTACT - CALLISTHENICS INSTRUCTOR IMG MRI ORDERABLES Fin al Result documented in this encounter Visit Diagnoses Diagnosis Left anterior knee pain- Primary Pain in joint, lower leg Left anterior knee pain Pain in joint, lower leg documented in this encounter Care Teams Pin Setter Relationship Specialty Start Date End Date Ricky Pfeiffer DO PCP - General Family Medicine 02/06/18 documented as of this encounter
--- OUTSIDE RECORDS SUMMARY | 2025-03-28 18:35 | XMS_ITS | Encounter Summary ---
Author Organization [facility] tem Address [id number] [address] [place] [address] Care Team Providers Care Fire Prevention Engineer Name Role Phone Tee Gonzales MD Primary Care Provider [phone] Reason for Visit * Reason Onset Date Comments EGD 03/20/2025 Colonoscopy 03/20/2025 Encounter Details Date Type Department Care Team (Late st Contact Info) Description 03/20/2025 Refill [facility], A Department of [address] [phone] Consultants, [facility] [address] [place] [address], [address] [phone] Social History Tobacco Use Types Packs/Day Years Used Date Smoking Tobacco: Former Cigarettes Smokeless Tobacco: Former Alcohol Use Standard Drinks/Week Comments Not Currently 0 (1 standard drink = 0.6 oz pur e alcohol) Not very much [facility] Utilities Answer Date Recorded In the past 12 months has [employer], gas, oil, or water [email or web address] threatened to shut off services in your [...] Functional Status documented as of this encounter Miscellaneous Notes * Telephone Encounter - Samira Hernandez - 03/20/2025 3:00 PM EDT Pt called to r/s EGD/Colon 05/20/25 2pm. DAVID Prep pended for MD signature. Pt requests Suprep, informed pt, this may not be covered. Pt states he has golytely at home but would rather use Suprep. Instructions have been mailed to pts home as requested. * Telephone Encounter - Samira Hernandez - 03/20/2025 3:00 PM EDT Added to wait list as requested by pt * Telephone Encounter - Samira Hernandez - 03/20/2025 3:00 PM EDT Called and spoke with pt Rescheduled EGD/Colon to sooner appt: 04/10/25 8:30am, DAVID documented in this encounter Plan of Treatment Upcoming Encounters Date Type Department Care Team (Latest Contact Info) Description 04/10/2025 8:30 AM EDT Hospital Encounter [facility] - Endoscopy [address] [place] [address], [address] [place] [address] Elen Rodarte MD [address] [place] [address], [address] [place] [address] 04/10/2025 8:30 AM EDT - 04/10/2025 9:00 AM EDT Surgery [facility] - Endoscopy [address] [place] [address], [address] [place] [address] Elen Rodarte MD [address] [place] [address], [address] [place] [address] ESOPHAGOGASTRODUODENOSCOPY DIAGNOSTIC [30543 (CPT )] 04/23/2025 11:00 AM EDT Infusion [facility] Infusion [address] [place] [address] 05/20/2025 9:15 AM EDT Office Visit [facility], A Department of [address] [place] [address] [place] [address] [place] [address], [address] [place] [address] 05/21/2025 11:00 AM EDT Infusion [facility] Infusion [address] [place] [address] [address] [place] [address] Scheduled Procedures Name Priority Associated Diagnoses Date/Ti me ESOPHAGOGASTRODUODENOSCOPY DIAGNOSTIC Crohn's disease of both small and large intestine without complication ([facility]) [K50.80] - Primary 04/10/2025 8:30 AM EDT COLONOSCOPY DIAGNOSTIC / SCREENING Crohn's disease of both small and large intestine without complication ([facility]) [K50.80] - Primary 04/10/2025 8:30 AM [...] documented as of this encounter Care Teams Fire Prevention Engineer Relationship Specialty Start Date End Date Tee Gonzales MD [address] [place] [address] PCP - General Family Medicine 03/09/25 documented as of this encounter
--- OUTSIDE RECORDS SUMMARY | 2025-03-28 18:35 | XMS_ITS | Encounter Summary ---
Author Organization [employer] Address [facility] [id number] [address] [place] [address] Care Team Providers Care Senior Hardware Engineer Name Role Phone Tee Gonzales MD Primary Care Provider [phone] Encounter Details Date Type Department Care Team (Late st Contact Info) Description 07/11/2024 Orders Only [facility] [address] [place] [address] External, Scanning Provider Social History Tobacco Use Types Packs/Day Years Used Date Smoking Tobacco: Every Day Cigarettes Smokeless Tobacco: Former Alcohol Use Standard Drinks/Week Comments Not Currently 0 (1 standard drink = 0.6 oz pur e alcohol) [facility] Utilities Answer Date Recorded In the past 12 months has [employer], gas, oil, or water [employer] threatened to shut off services in your home? No 07/15/2024 AUDIT-C Answer Date Recorded Q1: How often [...] medical appointments or from getting medications? No 06/18 In the past 12 months, has l ack of transportation kept you from meetings, work, or from getting things needed for daily living? No 07/15/2024 Housing Instability Answer Date Recorde d Are you worried or concerned that in the next two months you may not have stable housing that you own, rent or stay in as a part of a household? No 07/15/2024 Childcare Answer Date Recorded Childcare Unknown 03/27/2019 Employment Answer Date Recorded Employment Unknown 03/27/2019 Hunger Screening Answer Date Recorded Within the past 12 months we worried whether our food would run out before we got money to buy more. Never True 07/15/2024 Within the past 12 months th e food we bought just didn't last and we didn't have money to get more. Never True 07/15/2024 Purpose - Life Answer Date Recorded Purpose [...] Description 04/10/2025 8:30 AM EDT Hospital Encounter [facility] - Endoscopy [address] [place] [address], [address] [place] [address] Elen Rodarte MD [address] [place] [address], [address] [place] [address] 04/10/2025 8:30 AM EDT - 04/10/2025 9:00 AM EDT Surgery [facility] - Endoscopy [address] [place] [address], [address] [place] [address] Elen Rodarte MD [address] [place] [address], [address] [place] [address] ESOPHAGOGASTRODUODENOSCOPY DIAGNOSTIC [04110 (CPT )] 04/23/2025 11:00 AM EDT Infusion [facility] Infusion [address] [place] [address] [address] [place] [address] 05/20/2025 9:15 AM EDT Office Visit [facility], A Department of [address] [place] [address] Elen Rodarte MD [address] [facility], [address] [place] [address] 05/21/2025 11:00 AM EDT Infusion [facility] [address] [facility] [address] [place] [address] Scheduled Procedures Name Priority Associated Diagnoses Date/Ti me ESOPHAGOGASTRODUODENOSCOPY DIAGNOSTIC Crohn's disease of both small and large intestine without complication (CMS-HCC) [K50.80] - Primary 04/10/2025 8:30 AM EDT COLONOSCOPY DIAGNOSTIC / SCREENING Crohn's disease of both small and large intestine without complication (CMS-HCC) [K50.80] - Primary 04/10/2025 8:30 AM EDT documented as of this encounter Procedures Procedure Name Priority Date/Time Associated Diagnosis Comments XR CHEST 2 VWS Routine 07/11/2024 8:54 AM EDT ECG 12-LEAD Routine 07/11/2024 8:54 AM EDT documented in this encounter Results * X-ray chest 2 views (07/11/2024 8:54 AM EDT) Anatomical Region Laterality Modality Body, Chest N/A Computed Radiogr aphy us Scanning Provider External IMG DIAGNOSTIC IMAGIN G ORDERABLES Final Result * ECG 12 lead (07/11/2024 8:54 AM EDT) us Scanning Provider External ECG ORDERABLES Final Result MANUALLY TRANSCRIBED RESULTS documented in this encounter Visit Diagnoses Not on filedocumented in this encounter Additional Health Concerns Infection Onset Date Last Indicated Resolved Time Enteric Rule-Out 07/13/2024 07/13/2024 07/14/2024 3:25 AM EDT Enteric Rule-Out 07/15/2024 07/15/2024 07/15/2024 6:30 PM EDT documented as of this encounter Care Teams Senior Hardware Engineer Relationship Specialty Start Date End Date Tee Gonzales MD [address] [place] [address] PCP - General Family Medicine 03/09/25 documented as of this encounter
--- OUTSIDE RECORDS SUMMARY | 2025-03-28 18:35 | XMS_ITS | Encounter Summary ---
Author Organization [employer] Address [facility] [id number] [address] [place] [address] Care Team Providers Care Cryptographic Vulnerability Analyst Name Role Phone Tee Gonzales MD Primary Care Provider [phone] Encounter Details Date Type Department Care Team (Late st Contact Info) Description 10/08/2024 Orders Only [facility] [address] [place] [address] External, Scanning Provider Social History Tobacco Use Types Packs/Day Years Used Date Smoking Tobacco: Former Cigarettes Smokeless Tobacco: Former Alcohol Use Standard Drinks/Week Comments Not Currently 0 (1 standard drink = 0.6 oz pur e alcohol) Not very much [facility] Utilities Answer Date Recorded In the past 12 months has [employer], gas, oil, or water [employer] threatened to shut off services in your home? No 10/08/2024 AUDIT-C Answer Date Recorded Q1: How often [...] medical appointments or from getting medications? No 09/16 In the past 12 months, has l ack of transportation kept you from meetings, work, or from getting things needed for daily living? No 10/08/2024 Housing Instability Answer Date Recorde d Are you worried or concerned that in the next two months you may not have stable housing that you own, rent or stay in as a part of a household? No 10/08/2024 Childcare Answer Date Recorded Childcare Unknown 03/27/2019 Employment Answer Date Recorded Employment Unknown 03/27/2019 Hunger Screening Answer Date Recorded Within the past 12 months we worried whether our food would run out before we got money to buy more. Never True 10/08/2024 Within the past 12 months th e food we bought just didn't last and we didn't have money to get more. Never True 10/08/2024 Purpose - Life Answer Date Recorded Purpose and direction in life Unknown Sex and Gender Information Value Date Recorded Sex Assigned at Not on file Legal Sex Male 11:47 AM EDT Gender Identity Not on file Sexual Orientation Not on file documented as of this encounter Functional Status * Question Answer Date of Assessment Author Functional Status Independent 10/08/2024 9:04 PM Jasmin Bruno RN * Intimate Partner Violence Question Answer Date of Assessment Author Within the last year, have y ou been humiliated or emotionally abused in other ways by your partner or ex-partner? No 10/08/2024 9:08 PM Jasmin Bruno RN Within the last year, have y ou been afraid of your partner or ex-partner? No 10/08/2024 9:08 PM Jasmin Bruno RN Within the last year, have y ou been raped or forced to have any kind of sexual activity by your partner or ex-partner? No 10/08/2024 9:08 PM Jasmin Bruno RN Within the last year, have y ou been kicked, hit, slapped, or otherwise physically hurt by your partner or ex-partner? No 10/08/2024 9:08 PM Jasmin Bruno RN documented as of this encounter Plan of Treatment Upcoming Encounters Date Type Department Care Team (Latest Contact Info) Description 04/10/2025 8:30 AM EDT Hospital Encounter [facility] - Endoscopy [address] [place] [address], [address] [place] [address] Elen Rodarte MD [address] [place] [address], [address] [place] [address] 04/10/2025 8:30 AM EDT - 04/10/2025 9:[address] [facility] - Endoscopy [address] [place] [address], [address] [place] [address] [place] [address] [place] [address], [address] [place] [address] ESOPHAGOGASTRODUODENOSCOPY DIAGNOSTIC [16599 (CPT )] 04/23/2025 11:00 AM EDT Infusion [facility] Infusion [address] [place] [address] [address] [place] [address] 05/20/2025 9:15 AM EDT Office Visit [facility], A Department of [address] [place] [address] [place] [address] [place] [address], [address] [place] [address] 05/21/2025 11:00 AM EDT Infusion [facility] [address] [place] [address] [address] [place] [address] Scheduled Procedures Name Priority Associated Diagnoses Date/Ti me ESOPHAGOGASTRODUODENOSCOPY DIAGNOSTIC Crohn's disease of both small and large intestine without complication ([facility]-HCC) [K50.80] - Primary 04/10/2025 8:30 AM EDT COLONOSCOPY DIAGNOSTIC / SCREENING Crohn's disease of both small and large intestine without complication (CMS-HCC) [K50.80] - Primary 04/10/2025 8:30 AM EDT documented as of this encounter Procedures Procedure Name Priority Date/Time Associated Diagnosis Comments ECG 12-LEAD Routine 07/08/2024 11:33 AM EDT ECG 12-LEAD Routine 06/27/2024 11:34 AM EDT documented in this encounter Results * ECG 12 lead (07/08/2024 11:33 AM EDT) us Scanning Provider External ECG ORDERABLES Final Result MANUALLY TRANSCRIBED RESULTS * ECG 12 lead (06/27/2024 11:34 AM EDT) us Scanning Provider External ECG ORDERABLES Final Result Performing Organization Address City/[facility] Co de Phone Number MANUALLY TRANSCRIBED RESULTS documented in this encounter Visit Diagnoses Not on filedocumented in this encounter Additional Health Concerns Assessment Noted Time PHQ-9 Depression Total Score: 3 07/15/20 24 3:19 PM EDT documented as of this encounter Care Teams Cryptographic Vulnerability Analyst Relationship Specialty Start Date End Date Tee Gonzales MD [address] [place] [address] PCP - General Family Medicine 03/09/25 documented as of this encounter
--- OUTSIDE RECORDS SUMMARY | 2025-03-28 18:35 | XMS_ITS | Encounter Summary ---
Author Organization [facility] tem Address [facility] [place]-[id number] [address] [place] [address] Care Team Providers Care Double Needle Operator Name Role Phone Tee Gonzales MD Primary Care Provider [phone] Encounter Details Date Type Department Care Team (Late st Contact Info) Description 02/03/2025 Telephone [facility], A Department of [address] [place] [address] April Cohen CMA Social History Tobacco Use Types Packs/Day Years Used Date Smoking Tobacco: Former Cigarettes Smokeless Tobacco: Former Alcohol Use Standard Drinks/Week Comments Not Currently 0 (1 standard drink = 0.6 oz pur e alcohol) Not very much [facility] Utilities Answer Date Recorded In [...] encounter Miscellaneous Notes * Telephone Encounter - April Cohen CMA - 02/03/2025 10:[address] Rodarte, Humira trough level is low without evidence of antibody formation, switch Humira to weekly. Please obtain the calprotectin, MR enterography / EGD and colonoscopy as previously planned soon as possible patient continues to have ED visits. * Telephone Encounter - Kristal Masters - 02/03/2025 10:07 AM EDT Humira 40mg/0.8ml script sent to [facility] to start the PA * Telephone Encounter - Kristal Masters - 02/03/2025 10:07 AM EDT Maral states he has primary insurance,[facility] states they called the patient and patient will call and let maral this is his only insurance * Telephone Encounter - Bal Laird LPN - 02/03/2025 10:07 AM EDT Attempted to call patient and the call will not go through. Attempted x3 from various phones in theoffice. mycujoo message sent to the patient to remind him to call [facility]. Contacted [facility], they attempted to run the claim and it is still rejecting for primary coverage. * Telephone Encounter - Bal Laird LPN - 02/03/2025 10:07 AM EDT Call to patient, he has not called Medicaid to advise them that he does not have commercial coverage as primary. Advised the patient that as soon as he does that we can submit an authorization and hecan fill his prescription. Asked patient to let me know once he has done this. * Telephone Encounter - Kristal Masters - 02/03/2025 10:07 AM EDT Humira 40mg/0.8ml once weekly K50.80 Crohn's disease of both small and large intestine without complications. PA form completed and faxed to [phone] * Telephone Encounter - Kristal Masters - 02/03/2025 10:07 AM EDT Additional information sent to [facility] for Humira Faqxed to [phone] * Telephone Encounter - Kristal Masters - 02/03/2025 10:07 AM EDT Call to maral to check on PA status for Humira. Maral stated he has primary, even though patient called in last week and clarified to them he does not primary that maral is his primary. Informed the lady on the phone she said she would be research and completed a benefit verification then call me back. * Telephone Encounter - Kristal Masters - 02/03/2025 10:07 AM EDT Maral called back fixed primary insurance PA was submitted over the phone * Telephone Encounter - Bal Laird LPN - 02/03/2025 10:07 AM EDT Denial letter received, missing TB testing results. Faxed them into [phone] . Your fax has been successfully sent to [phone] at [phone]. * Telephone Encounter - Kristal Masters - 02/03/2025 10:07 AM EDT Call to maral to [facility] was canceled PA resubmitted urgently with office notes and negatvie TB test * Telephone Encounter - Kristal Masters - 02/03/2025 10:07 AM EDT PA denied; Mar[facility] is faxing us over the denial letter Anabela at [facility] is submitting appeal * Telephone Encounter - Bal Laird LPN - 02/03/2025 10:07 AM EDT Call from [facility] pharmacist, requesting supporting clinical studies for review. Faxed in two studies supporting Humira 40mg weekly to [phone]. Case # [id number]. Your fax has been successfully sent to [phone] at [phone]. Supporting studies * Telephone Encounter - Bal Laird LPN - 02/03/2025 10:[address] Aster John 40mg weekly denied PA and denied on appeal. [facility] pharmacist advised Skyrizi is preferred. How would you like to proceed? * Telephone Encounter - Elen Rodarte MD - 02/03/2025 10:07 AM EDT Yes please * Telephone Encounter - Bal Laird LPN - 02/03/2025 10:07 AM EDT Call to patient and discussed Hoa, patient is agreeable to medication change. * Telephone Encounter - Bal Laird LPN - 02/03/2025 10:07 AM EDT Attempt to PA Hoa on [facility] portal, unable. Call to [phone], advised that [facility] does not PA neither pharmacy meds or medically billed medications for [facility] community plan. Advised to call the number on the back of the members card. * Telephone Encounter - Bal Laird LPN - 02/03/2025 10:07 AM EDT Call to [phone]. Initiated PA over the phone. K50.112 Skyrizi 600mg every 28 days for a total of 3 infusions Call ref # [id number] Faxed clinical notes to [phone] Your fax has been successfully sent to [phone] at [phone]. Clinical notes * Telephone Encounter - Bal Laird LPN - 02/03/2025 10:07 AM EDT Approved Skyrizi 600mg every 28 days Auth # [id number] Valid: 03.24.25 - 06.09.25 3 Visits K50.112 Added to spreadsheet, referral entered, therapy plan placed. Call to patient to discuss. Also sent detailed MyChart message. He had 2 cysts removed surgically from his groin yesterday. No antibiotics. Discussed with Dr. Rodarte, he wants the patient to start therapy [facility]. Infusion nurses please call patient to schedule. Thank you. * Telephone Encounter - Maureen Quinonez RN - 02/03/2025 10:07 AM EDT Called patient to schedule his Skyrizi induction infusions (03/26/25 , 04/23/25, 05/21/25). Discussed plan of care and informed patient to call infusion room (number provided) if patient has any fever, open wounds/infections, or surgeries prior to Skyrizi infusion. Also, to inform infusion nurses if hasany insurance changes. Patient verbalized understanding of info given. Infusion Clinic information sent to patient's Mychart as well. * Addendum Note - Bal Laird LPN - 02/03/2025 10:07 AM EDTAddended by: BAL LAIRD on: 03/20/2025 11:42 AM Modules accepted: Orders documented in this encounter Plan of Treatment Upcoming Encounters Date Type Department Care Team (Latest Contact Info) Description 04/10/2025 8:30 AM EDT Hospital Encounter [facility] - Endoscopy [address] [place] [address], [address] [place] [address] [place] [address] [place] [address], [address] [place] [address] 04/10/2025 8:30 AM EDT - 04/10/2025 9:00 AM EDT Surgery [facility] - Endoscopy [address] [place] [address], [address] [place] [address] [place] [address] [place] [address], [address] [place] [address] ESOPHAGOGASTRODUODENOSCOPY DIAGNOSTIC [48368 (CPT )] 04/23/2025 11:00 AM EDT Infusion [facility] Infusion [address] [place] [address] [address] [place] [address] 05/20/2025 9:15 AM EDT Office Visit [facility], A Department of [address] [place] [address] Elen Rodarte MD [address] [facility], [address] [place] [address] 05/21/2025 11:00 AM EDT Infusion [facility] Infusion [address] [address] Scheduled Procedures Name Priority Associated Diagnoses Date/Ti me ESOPHAGOGASTRODUODENOSCOPY DIAGNOSTIC Crohn's disease of both small and large intestine without complication ([facility]-HCC) [K50.80] - Primary 04/10/2025 8:30 AM EDT COLONOSCOPY DIAGNOSTIC / SCREENING Crohn's disease of both small and large intestine without complication ([facility]-H[facility]) [K50.80] - Primary 04/10/2025 8:30 AM [...] documented as of this encounter Care Teams Double Needle Operator Relationship Specialty Start Date End Date Tee Gonzales MD [address] [place] [address] PCP - General Family Medicine 03/09/25 documented as of this encounter
--- OUTSIDE RECORDS SUMMARY | 2025-03-28 18:35 | XMS_ITS | Encounter Summary ---
Author Organization [employer] Address [facility] [id number] [address] [place] [address] Care Team Providers Care Systems Program Manager Name Role Phone Tee Gonzales MD Primary Care Provider [phone] Encounter Details Date Type Department Care Team (Late st Contact Info) Description 03/14/2025 Telephone [facility] [address] [place] [address] Elen Rodarte MD [address] [place] [address], [address] [place] [id number] Social History Tobacco Use Types Packs/Day Years Used Date Smoking Tobacco: Former Cigarettes Smokeless Tobacco: Former Alcohol Use Standard Drinks/Week Comments Not Currently 0 (1 standard drink = 0.6 oz pur e alcohol) Not very much [facility] Utilities Answer Date Recorded In the past 12 months has [employer], gas, oil, or water [employer] threatened to shut off services in your [...] got money to buy more. Never True 03/09/2025 Within the past 12 months th e food we bought just didn't last and we didn't have money to get more. Never True 03/09/2025 Purpose - Life Answer Date Recorded Purpose and direction in life Unknown Sex and Gender Information Value Date Recorded Sex Assigned at Not on file Legal Sex Male 11:47 AM EDT Gender Identity Not on file Sexual Orientation Not on file documented as of this encounter Miscellaneous Notes * Telephone Encounter - Anabela Phan RPH - 03/14/2025 11:22 AM EDT Humira appeal letter faxed to [facility] today. documented in this encounter Plan of Treatment Upcoming Encounters Date Type Department Care Team (Latest Contact Info) Description 04/10/2025 8:30 AM EDT Hospital Encounter [facility] - Endoscopy [address] [place] [address], [address] [place] [address] [place] [address] [place] [address], [address] [place] [address] 04/10/2025 8:30 AM EDT - 04/10/2025 9:00 AM EDT Surgery [facility] - Endoscopy [address] [place] [address], [address] [place] [address] [place] [address] [place] [address], [address] [place] [address] ESOPHAGOGASTRODUODENOSCOPY DIAGNOSTIC [07706 (CPT )] 04/23/2025 11:00 AM EDT Infusion [facility] In[facility] [address] [place] [address] [address] [place] [address] 05/20/2025 9:15 AM EDT Office Visit [facility], A Department of [address] [place] [address] [place] [address] [place] [address], [address] [place] [address] 05/21/2025 11:00 AM EDT Infusion [facility] Infusion [address] [place] [address] Scheduled Procedures Name Priority Associated Diagnoses Date/Ti me ESOPHAGOGASTRODUODENOSCOPY DIAGNOSTIC Crohn's disease of both small and large intestine without complication ([facility]) [K50.80] - Primary 04/10/2025 8:30 AM [...] documented as of this encounter Care Teams Systems Program Manager Relationship Specialty Start Date End Date Tee Gonzales MD [address] [place] [address] PCP - General Family Medicine 03/09/25 documented as of this encounter
--- OUTSIDE RECORDS SUMMARY | 2025-03-28 18:35 | XMS_ITS | Encounter Summary ---
[facility] Organization [facility] tem Address [id number] [address] [place] [address] Care Team Providers Care Pit Slagman Name Role Phone Tee Gonzales MD Primary Care Provider [phone] Encounter Details Date Type Department Care Team (Late st Contact Info) Description 07/19/[address] [place] [address] [place] [address] [place] [address], [address] [place] [address] Social History Tobacco Use Types Packs/Day Years Used Date Smoking Tobacco: Former Cigarettes Smokeless Tobacco: Former Alcohol Use Standard Drinks/Week Comments Not Currently 0 (1 standard drink = 0.6 oz pur e alcohol) Not very much [facility] Utilities Answer Date Recorded In the past 12 months has Sequence, gas, oil, or water [employer] threatened to shut off services in your [...] encounter Miscellaneous Notes * Telephone Encounter - NEHAL Oneill - 07/19/2024 1:42 PM EDT Pt admitted with ileal stricture. Colonoscopy with Dr. Aster quinn biopsies shows concern for active chronic colitis, likely Crohn's Hep B testing negative Fecal calprotectin 65 TB test pending. Please arrange for office follow up with Dr. Rodarte in 2 weeks to review surgical pathology and initiate treatment when safe outside the post-op window. * Telephone Encounter - April Cohen CMA - 07/19/2024 1:42 PM EDT Currently inpatient at [facility] * Telephone Encounter - April Cohen CMA - 07/19/2024 1:42 PM EDT Patient discharged. Per Dr. Rodarte, biopsy results addressed during inpatient rounds. Please schedule patient office visit with me in 4-6 weeks after hospital discharge. Left message with patient to call back to schedule * Telephone Encounter - April Cohen CMA - 07/19/2024 1:42 PM EDT Patient is scheduled for 08/23/2024 at 10:30 AM Patient is stating he was told he would be off work for 6 week when he was in the hospital. He didn't receive a note stating that at Discharge. Should he receive note from our office or Dr. Gates whodid surgery? * Telephone Encounter - Elen Rodarte MD - 07/19/2024 1:42 PM EDT Yes. From Dr Gates 's office. * Telephone Encounter - April Cohen CMA - 07/19/2024 1:42 PM EDT Noted. Informed patient of recommendations documented in this encounter Plan of Treatment Upcoming Encounters Date Type Department Care Team (Latest Contact Info) Description 04/10/2025 8:30 AM EDT Hospital Encounter [facility] - Endoscopy [address] [place] [address], [address] [place] [address] [place] [address] [place] [address], [address] [place] [address] 04/10/2025 8:30 AM EDT - 04/10/2025 9:00 AM EDT Surgery [facility] - Endoscopy [address] [place] [address], [address] [place] [address] Elen Rodarte MD [address] [facility], [address] [place] [address] ESOPHAGOGASTRODUODENOSCOPY DIAGNOSTIC [91195 (CPT )] 04/23/2025 11:00 AM EDT Infusion [facility] Infusion [address] [place] [phone] 05/20/2025 9:15 AM EDT Office Visit [facility], A Department of [address] [phone] [place] [address] [place] [address], [address] [place] [address] 05/21/2025 11:00 AM EDT Infusion [facility]fusion [address] [place] [phone] Scheduled Procedures Name Priority Associated Diagnoses Date/Ti [...] documented as of this encounter Care Teams Pit Slagman Relationship Specialty Start Date End Date Tee Gonzales MD [address] [place] [address] PCP - General Family Medicine 03/09/25 documented as of this encounter
--- OUTSIDE RECORDS SUMMARY | 2025-03-28 18:35 | XMS_ITS | Clinical Summary ---
Author Organization [employer] tem Address [id number] [address] [place] [address] Care Team Providers Care Consulting Utility Forester Name Role Phone Tee Gonzales MD Primary Care Provider [phone] Allergies No known active allergies Medications adalimumab (HUMIRA) 40 mg/0.8 mL injection INJECT 0.8ML UNDER THE SKIN ONCE WEEKLY 3.2 each 5 Active Additional Information Patient not taking.Reported on 03/26/2025 bisacodyL (DULCOLAX) 5 mg EC tablet Take 1 tablet (5 mg total) by mouth daily as needed for constipation. 2 tablet Active sodium,potassium,ma g sulfates (SUPREP) 17.5-3.13-1.6 gram recon soln Please follow office colonoscopy instructions. 354 mL 025 Active predniSONE (DELTASONE) 10 mg tablet 3 tabs for 3 days, 2 tabs for 3 days, 1 tab for 3 days 18 tablet 025 Active risankizumab-rzaa (SKYRIZI) 60 mg/mL injectionIndication s:Crohn's disease Infuse 10 mL (600 mg total) into a venous catheter every 28 days Indications: Crohn's disease. 3 induction infusions every 28 days then patient will self inject with the OBI Active sulfaSALAzine (AZULFIDINE) 500 mg EC tablet Take 1 tablet (500 mg total) by mouth 3 (three) times a day. 30 tablet 025 2024 Discontinued ondansetron ODT (ZOFRAN ODT) 4 mg disintegrating tablet Dissolve 1 tablet (4 mg total) on tongue every 8 (eight) hours as needed for nausea for up to 10 doses. 10 tablet 025 2024 Discontinued naloxone (NARCAN) 4 mg/actuation spray,non-aerosol nasal spray Administer 1 spray (4 mg total) into alternating nostrils as needed for opioid reversal. 025 2024 Discontinued HYDROcodone-acetami nophen (NORCO) 5-325 mg per tabletIndications:G eneralized abdominal pain,History of Crohn's disease Take 1 tablet by mouth every 6 (six) hours as needed for pain for up to 2 doses. Max Daily Amount: 4 tablets 2 tablet 025 2024 Discontinued(S top Taking at Discharge) ondansetron ODT (ZOFRAN ODT) 4 mg disintegrating tablet Dissolve 1 tablet (4 mg total) on tongue every 6 (six) hours as needed for nausea or vomiting for up to 30 days. 10 tablet 025 2024 Discontinued oxyCODONE-acetamino phen (PERCOCET) 5-325 mg per tabletIndications:G eneralized abdominal pain,Crohn's disease with other complication, unspecified gastrointestinal tract location ([facility]) Take 1 tablet by mouth every 6 (six) hours as needed for pain for up to 3 days. 3 Day Supply Max Daily Amount: 4 tablets 12 tablet 025 2024 ondansetron ODT (ZOFRAN ODT) 4 mg disintegrating tablet Dissolve 1 tablet (4 mg total) on tongue every 8 (eight) hours as needed for nausea for up to 10 doses. 10 tablet 025 2024 Discontinued Active Problems Problem Noted Date Diagnosed Date Poor appetite 03/24/2025 Hypoalbuminemia 03/24/2025 Leukocytosis 03/24/2025 Elevated glucose 03/24/2025 Cannabis abuse, episodic 03/24/2025 Crohn's colitis 03/21/2025 Crohn's disease of colon without complication Abdominal pain 11/06/2024 History of Crohn's disease 11/06/2024 Hypokalemia 11/06/2024 Hypomagnesemia 11/06/2024 Severe protein-calorie malnutrition 10/09/2024 Overview (03/21/2025): Pt with diagnosis of chronic disease or condition related malnutrition (NI 5.2.2) related to Crohn's Colitis as evidenced by 10% weight loss over past year and PO intake less than 50% of usual over past year. Intractable abdominal pain 10/08/2024 Crohn's colitis, with intestinal obstruction Ileocolitis 07/15/2024 Encounters Date Type Department Care Team Description 03/26/2025 12:00 PM EDT Infusion [facility] [address] [facility] [address] [place] [address] Crohn's colitis, with intestinal obstruction (CMS-HCC) (Primary Dx) 03/21/2025 11:52 AM EDT - 03/24/2025 5:00 PM EDT Hospital Encounter [facility] - Med Surg [address] [place] [phone] Turner Burton MD Gill, Kaleem U, MD Discharge Disposition: Home 03/21/2025 Travel 03/20/2025 8:32 PM EDT - 03/21/2025 11:00 AM EDT Emergency [facility] - Emergency [address] [place] [address] Thelma Mckeon, Crohn's disease of colon without complication ([facility]) (Primary Dx); Intractable pain Discharge Disposition: [facility] 03/20/2025 Travel 03/20/2025 Refill [facility], A Department of [facility] [address] [facility] [address] [place] [address] Consultants, [facility] 03/14/2025 Telephone [facility] [address] [place] [address] Elen Rodarte MD 03/09/2025 2:24 PM EDT - 03/09/2025 5:35 PM EDT Emergency [facility] - Emergency [address] [place] [address] Natalio Araiza DO Generalized abdominal pain (Primary Dx); Crohn's disease with other complication, unspecified gastrointestinal tract location ([facility]) Discharge Disposition: Home 03/09/2025 Travel 02/17/2025 9:25 PM EDT - 02/17/2025 11:28 PM EDT Emergency [facility] - Emergency [address] [place] [address] Marcos Bush DO Generalized abdominal pain (Primary Dx); History of Crohn's disease Discharge Disposition: Home 02/17/2025 Travel 02/04/2025 Telephone [facility] [address] [place] [phone] Anabela Phan, [facility] Prior Authorization (Humira) 02/04/2025 Refill [facility] [address] [facility] [address] [place] [phone] Kristal Masters 02/03/2025 Telephone [facility], A Department of [address] [place] [address] April Cohen CMA 02/02/2025 9:13 PM EDT - 02/03/2025 12:01 AM EDT Emergency [facility] - Emergency [address] [place] [address] Hank Salinas DO Generalized abdominal pain (Primary Dx); History of Crohn's disease Discharge Disposition: Home 02/02/2025 Telephone [facility] [address] [place] [phone] Cherrie Cuellar Crohn's Disease 02/02/2025 Travel 01/27/2025 11:16 AM EDT - 01/27/2025 11:59 PM EDT Hospital Encounter [facility] - Lab [address] [place] [address] Crohn's disease of both small and large intestine without complication ([facility]); Postop check Discharge Disposition: Home 01/24/2025 12:45 PM EDT Office Visit [facility], Department of [address] [phone] Elen Rodarte MD Crohn's disease of both small and large intestine without complication ([facility]) (Primary Dx) 01/24/2025 Telephone [facility], A Department of [address] [phone] Consultants, [facility] 01/24/2025 Travel 01/12/2025 9:37 PM EDT - 01/13/2025 12:23 AM EDT Emergency [facility] - Emergency [address] [place] [address] Kale Restrepo MD Crohn's disease with complication, unspecified gastrointestinal tract location ([facility]) (Primary Dx) Discharge Disposition: Home 01/12/2025 Travel from Last 3 Months Immunizations Immunization Administration Dates Next Due DTP 01/12/1994,1993 DTaP, Unspecified 06/26/1998,08/25/1997 Hep B / HIB 08/25/1997 Hep B, Adolescent or Pediatric 06/26/1998,1996 HiB 01/12/1994,1993 MMR 06/26/1998,08/25/1997 OPV 06/26/1998,08/25/1997,01/12/1994 ,1993 Family History Medical History Relation Name Comments Cancer Maternal Uncle Colon cancer Neg Hx Relation Name Status Comments Maternal Uncle Social History Tobacco Use Types Packs/Day Years Used Date Smoking Tobacco: Former Cigarettes Smokeless Tobacco: Former Tobacco Cessation:Counseling Given: Not Answered Alcohol Use Standard Drinks/Week Comments Not Currently 0 (1 standard drink = 0.6 oz pur e alcohol) Not very much [facility] Utilities Answer Date Recorded In the past 12 months has Cu[employer], gas, oil, or water company threatened to [...] 20 03/26/2025 1:30 PM EDT Oxygen Saturation 99% 03/24/2025 11:00 AM EDT Inhaled Oxygen Concentration - - Weight 68 kg (150 lb) 03/26/2025 12:00 PM EDT Height 177.8 cm (5' 10 ) 03/20/2025 8:37 PM EDT Body Mass Index 21.52 03/20/2025 8:37 PM EDT Plan of Treatment Upcoming Encounters Date Type Department Care Team (Latest Contact Info) Description 04/10/2025 8:30 AM EDT Hospital Encounter [facility] - Endoscopy [address] [place] [address], [address] [place] [address] [place] [address] [place] [address], [address] [place] [address] 04/10/2025 8:30 AM EDT - 04/10/2025 9:00 AM EDT Surgery [facility] - Endoscopy [address] [place] [address], [address] [facility] [address] [place] [address] [place] [address], [address] [place] [address] ESOPHAGOGASTRODUODENOSCOPY DIAGNOSTIC [67627 (CPT )] 04/23/2025 11:00 AM EDT Infusion [facility] [address] [place] [address] [place] [phone] 05/20/2025 9:15 AM EDT Office Visit [facility], A Department of [address] [place] [address] Elen Rodarte MD [address] [place] [address], [address] [place] [address] 05/21/2025 11:00 AM EDT Infusion [facility] [address] [place] [address] [address] [place] [address] Scheduled Procedures Name Priority Associated Diagnoses Date/Ti me ESOPHAGOGASTRODUODENOSCOPY DIAGNOSTIC Crohn's disease of both small and large intestine without complication (CMS-HCC) [K50.80] - Primary 04/10/2025 8:30 AM EDT COLONOSCOPY DIAGNOSTIC / SCREENING Crohn's disease of both small and large intestine without complication ([facility]) [K50.80] - Primary 04/10/2025 8:30 AM EDT Health Maintenance Due Date Last Done Comments Influenza Vaccine 06/16/2025 Depression Screening 07/15/2025 07/15/2024 Tobacco Screening 03/21/2026 03/21/2025 Adult BMI Screening 03/26/2026 03/26/2025 DTaP,Tdap and Td Vaccines (6 - Td or Tdap) 09/16/2034 09/16/2024, 06/26/1998, 08/25/1997, Additional history exists Goals Goal Patient Goal Type Associated Problems Recent Progress Patient-Stated? Author Return home General Yes Lexie Frausot LSW Note: Evaluation of progress towards goal: In progress: Return home, self care. Medical Devices Not on file Procedures Procedure Name Priority Date/Time Associated Diagnosis Comments BEDSIDE GLUCOSE Routine 03/24/2025 11:22 AM EDT BEDSIDE GLUCOSE Routine 03/24/2025 7:10 AM EDT HEMOGLOBIN A1C Add-On 03/24/2025 5:30 AM EDT CBC WITH AUTO DIFFERENTIAL Routine 03/24/2025 5:30 AM EDT MAGNESIUM Routine 03/24/2025 5:30 AM EDT COMPREHENSIVE METABOLIC PANEL [...] BEDSIDE GLUCOSE Routine 03/21/2025 5:02 PM EDT MAGNESIUM Routine 03/21/2025 4:28 PM EDT POTASSIUM Routine 03/21/2025 4:28 PM EDT BEDSIDE GLUCOSE Routine 03/21/2025 2:57 PM EDT POCT NURSING URINE MACROSCOPIC UA Routine 03/21/2025 1:27 AM EDT ER EXTRA URINE MARBLE STAT 03/21/2025 1:12 AM EDT ER EXTRA URINE CULTURE STAT 03/21/2025 1:12 AM EDT ER EXTRA URINE STAT 03/21/2025 1:[address] ABDOMEN AND PELVIS W CONT STAT 03/20/2025 10:00 PM EDT EXTRA TUBES BLUE TOP Routine 03/20/2025 8:51 PM EDT EXTRA TUBES Routine 03/20/2025 8:51 PM EDT ERYTHROCYTE SEDIMENTATION RATE (ESR) Add-On 03/20/2025 8:50 PM EDT C-REACTIVE PROTEIN Add-On 03/20/2025 8: 50 PM EDT MAGNESIUM STAT 03/20/2025 8:50 PM EDT LIPASE STAT 03/20/2025 8:50 PM EDT LACTATE W/ REFLEX STAT 03/20/2025 8:5 0 PM EDT COMPREHENSIVE METABOLIC PANEL STAT 03/20/2025 8:50 PM EDT CBC WITH AUTO DIFFERENTIAL STAT 03/20/2025 8:50 PM EDT XR ABDOMEN COMP DECUB ERECT STAT 03/09/2025 3:38 PM EDT EXTRA TUBES BLUE TOP Routine 03/09/2025 3:14 PM EDT EXTRA TUBES Routine 03/09/2025 3:14 PM EDT LACTATE W/ REFLEX STAT 03/09/2025 3:1 4 PM EDT LIPASE STAT 03/09/2025 3:14 PM EDT COMPREHENSIVE METABOLIC PANEL STAT 03/09/2025 3:14 PM EDT CBC WITH AUTO DIFFERENTIAL STAT 03/09/2025 3:14 PM EDT BLUE TOP STAT 02/17/2025 9:56 PM EDT RAINBOW DRAW STAT 02/17/2025 9:56 PM EDT LIPASE STAT 02/17/2025 9:55 PM EDT COMPREHENSIVE METABOLIC PANEL STAT 02/17/2025 9:55 PM EDT CBC WITH AUTO DIFFERENTIAL STAT 02/17/2025 9:55 PM EDT POCT NURSING URINE MACROSCOPIC UA Routine 02/02/2025 11:34 PM EDT LACTATE W/ REFLEX STAT 02/02/2025 9:2 2 PM EDT LIPASE STAT 02/02/2025 9:22 PM EDT C-REACTIVE PROTEIN STAT 02/02/2025 9: 22 PM EDT COMPREHENSIVE METABOLIC PANEL STAT 02/02/2025 9:22 PM EDT CBC WITH AUTO DIFFERENTIAL STAT 02/02/2025 9:22 PM EDT GENERIC SEND OUT LAB USE ONLY Routine 01/27/2025 11:19 AM EDT ERYTHROCYTE SEDIMENTATION RATE (ESR) Routine 01/27/2025 11:19 AM EDT Postop check VITAMIN B12 Routine 01/27/2025 11:19 AM EDT Postop check VITAMIN D 25 HYDROXY Routine 01/27/2025 11:19 AM EDT Postop check UNLISTED LAB TEST Routine 01/27/2025 11: 19 AM EDT Crohn's disease of both small and large intestine without complication (CMS-HCC) CBC WITH AUTO DIFFERENTIAL Routine 01/27/2025 11:19 AM EDT Crohn's disease of both small and large intestine without complication (CMS-HCC) C-REACTIVE PROTEIN Routine 01/27/2025 11 :19 AM EDT Crohn's disease of both small and large intestine without complication (CMS-HCC) COMPREHENSIVE METABOLIC PANEL Routine 01/27/2025 11:19 AM EDT Crohn's disease of both small and large intestine without complication (CMS-HCC) CT ABDOMEN AND PELVIS W CONT STAT 01/12/2025 11:28 PM EDT COMPREHENSIVE METABOLIC PANEL STAT 01/12/2025 9:53 PM EDT CBC WITH AUTO DIFFERENTIAL STAT 01/12/2025 9:53 PM EDT from Last 3 Months Results * (ABNORMAL) Bedside Glucose *Place/Obtain serum glucose if >500 per glucometer. (03/24/2025 11:22AM EDT) Only the most recent of11 resultswithin the time period is included. [facility] Bedside Glucose (POC) 201(H) 65 - 99 mg/dL 03/24/2025 11:31 AM EDT [facility] arterial/capilla ry 03/24/2025 11:22 AM EDT 03/24/2025 11:31 AM EDT us Peter Orellana MD POINT OF CARE TEST ORDERABLES F inal Result [address] [address], * (ABNORMAL) CBC auto differential (03/24/2025 5:30 AM EDT) Only the most recent of9 resultswithin the time period is included. [facility] WBC 12.5(H) 4 - 11 x10E9/L 03/24/2025 6:41 AM EDT [facility] RBC Count 4.53 4.1 - 5.7 X10E12/L 03/24/2025 6:41 AM EDT [facility] Hemoglobin 13.1 13 - 17 g/dL 03/24/2025 6:41 AM [facility] Hematocrit 38.8(L) 39 - 50 % 03/24/2025 6:41 AM [facility] MCV 86 80 - 100 fL 03/24/2025 6:41 AM [facility] MCH 28.9 27 - 34 pg 03/24/2025 6:41 AM [facility] MCHC 33.7 32 - 36 g/dL 03/24/2025 6:41 AM [facility] RDW 13.0 11.5 - 15 % 03/24/2025 6:41 AM [facility] Platelet Count 316 150 - 450 X10E9/L 03/24/2025 6:41 AM [facility] MPV 7.2 7 - 12 fL 03/24/2025 6:41 AM [facility] Neutrophils Relative 91.5 % 03/24/2025 6:41 AM [facility] Lymphocytes Relative 5.2 % 03/24/2025 6:41 AM [facility] Monocytes Relative 3.2 % 03/24/2025 6:41 AM [facility] Eosinophils Relative 0.0 % 03/24/2025 6:41 AM [facility] Basophils Relative 0.1 % 03/24/2025 6:41 AM [facility] Neutrophils Absolute (A) 11.5(H) 1.5 - 6.6 10*3/uL 03/24/2025 6:41 AM [facility] Lymphocytes Absolute 0.7(L) 1.0 - 3.5 10*3/uL 03/24/2025 6:41 AM [facility] Monocytes Absolute 0.4 0.0 - 0.9 10*3/uL 03/24/2025 6:41 AM [facility] Eosinophils Absolute 0.0 0.0 - 0.4 10*3/uL 03/24/2025 6:41 AM [facility] Basophils Absolute 0.0 0.0 - 0.2 10*3/uL 03/24/2025 6:41 AM [facility] Differential Type AUTOMATED DIFFERENTIAL 03/24/2025 6:41 AM EDT [facility] Blood Venipuncture / Unknown 03/24/2025 5:30 AM EDT 03/24/2025 6:34 AM EDT Turner Burton MD LAB BLOOD ORDERABLES Final Res ult Performing Organization Address City/[facility]/[place] [address], * Magnesium (03/24/2025 5:30 AM EDT) Only the most recent of5 resultswithin the time period is included. MAGNESIUM 2.0 1.8 - 2.6 mg/dL 03/24/2025 6:59 AM EDT [facility] Blood Venipuncture / Unknown 03/24/2025 5:30 AM EDT 03/24/2025 6:34 AM EDT Turner Burton MD LAB BLOOD ORDERABLES Final Res ult Performing Organization Address City/[facility]/[place] [address], [place] * Hemoglobin A1c (03/24/2025 5:30 AM EDT) HEMOGLOBIN A1C 4.9 4.4 - 5.6 % 03/24/2025 2:36 PM EDT [facility] Comment: ADA Guidelines Result HgbA1c Normal : less than 5.7 % Prediabetes : 5.7 % to 6.4 % Diabetes : > 6.4 % Use with caution in patients with abnormal hemoglobin variants as the half-life of red blood cells and in vivo glycation rates are affected. EST. AVERAGE GLUCOSE 94 mg/dL 03/24/2025 2:36 PM EDT [facility] Blood Venipuncture / Unknown 03/24/2025 5:30 AM EDT 03/24/2025 6:34 AM EDT us Valeri Carrillo TIMING INSPECTOR-SECURITY OFFICER LAB BLOOD ORDERABLES Final Result [facility] [address] [place] [address], [place] [phone] * (ABNORMAL) Comprehensive metabolic panel (03/24/2025 5:30 AM EDT) Only the most recent of9 resultswithin the time period is included. SODIUM 138 134 - 146 mmol/L 03/24/2025 6:59 AM EDT [facility] POTASSIUM 3.8 3.5 - 5.0 mmol/L 03/24/2025 6:59 AM T [facility] CHLORIDE 103 98 - 109 mmol/L 03/24/2025 6:59 AM [facility] CARBON DIOXIDE 29 22 - 32 mmol/L 03/24/2025 6:59 AM T [facility] ANION GAP 6 5 - 15 mmol/L 03/24/2025 6:59 AM [facility] BLOOD UREA NITROGEN 19 5 - 23 mg/dL 03/24/2025 6:59 AM [facility] CREATININE 0.69(L) 0.70 - 1.20 mg/dL 03/24/2025 6:59 AM T [facility] Comment:METHOD TRACEABLE TO IDMS STANDARD GLUCOSE 122(H) 65 - 99 mg/dL 03/24/2025 6:59 AM [facility] CALCIUM 9.0 8.5 - 10.5 mg/dL 03/24/2025 6:59 AM [facility] TOTAL PROTEIN 6.3 6.0 - 8.0 g/dL 03/24/2025 6:59 AM [facility] ALBUMIN 3.0(L) 3.2 - 5.3 g/dL 03/24/2025 6:59 AM [facility] ALKALINE PHOSPHATASE 60 39 - 130 U/L 03/24/2025 6:59 AM [facility] AST 22 <=41 U/L 03/24/2025 6:59 AM EDT [facility] ALT 29 <=40 U/L 03/24/2025 6:59 AM EDT [facility] BILIRUBIN,TOTAL 0.6 0.3 - 1.2 mg/dL 03/24/2025 6:59 AM T [facility] EGFR Non-Race Dependent >90 >=60 ml/min/1.7 3sq.m 03/24/2025 6:59 AM T [facility] Comment: eGFR not reported due to non-numeric value for Creatinine. Reported eGFR is based on the CKD-EPI 2020 equation that does not use a race coefficient. Blood Venipuncture / Unknown 03/24/2025 5:30 AM EDT 03/24/2025 6:34 AM EDT us Turner Burton MD LAB BLOOD ORDERABLES Final Res ult [address] [address], * (ABNORMAL) Drug Screen, Urine (03/22/2025 10:22 AM EDT) AMPHETAMINE/METHAM P Negative Negative 03/22/2025 11:07 AM T [facility] Comment:AMPH/METH screening cut off = 1000 ng/mL COCAINE METABOLITE Negative Negative 2024 11:07 AM T [facility] Comment:Cocaine screening cu t off value = 300 ng/mL ECSTASY Negative Negative 03/22/2025 11:07 AM T [facility] Comment:Ecstasy screening cu t off value = 500 ng/mL METHADONE Negative Negative 03/22/2025 11:07 AM [facility] Comment:Methadone screening cut off value = 300 ng/mL. OPIATES Positive(A) Negative 03/22/2025 11:07 AM [facility] Comment: Opiates screening cut off value = 300 ng/mL This test is used for the detection of codeine, hydrocodone (>1000 ng/mL), morphine and hydromorphone (>900 ng/mL) in urine. OXYCODONE Negative Negative 03/22/2025 11:07 AM EDT [facility] Comment: Oxycodone screening cut off value = 300 ng/mL This test is used for the detection of oxycodone and oxymorphone in urine. PHENCYCLIDINE Negative Negative 03/22/2025 11:07 AM EDT [facility] Comment:Phencyclidine screen ing cut off value = 25 ng/mL CANNABINOIDS Positive(A) Negative 03/22/2025 11:07 AM EDT [facility] Comment:Cannabinoids/THC scr eening cut off value = 50 ng/mL Urine Barbiturates Negative Negative 2024 11:07 AM EDT [facility] Comment:Barbiturates screeni ng cut off value = 200 ng/mL BENZODIAZEPINES Negative Negative 11:07 AM EDT [facility] Comment:Benzodiazepines scre ening cut off value = 200 ng/mL Urine 03/22/2025 10:2 2 AM EDT 03/22/2025 10:29 AM EDT Narrative [facility] - 03/22/2025 11:07 AM EDT Confirmation available upon request. us Turner Burton MD URINE ORDERABLES Final Result Performing Organization Address [facility] [place] [address], * Potassium (03/21/2025 4:28 PM EDT) POTASSIUM 3.8 3.5 - 5.0 mmol/L 03/21/2025 4:47 PM EDT [facility] Blood Venous blood / Unknown Venipuncture / Unknown 03/21/2025 4:28 PM EDT 03/21/2025 4:34 PM EDT us Turner Burton MD LAB BLOOD ORDERABLES Final Res ult Performing Organization Address [facility] [place] [place] [address], [place] * POCT Nursing Urine Macroscopic UA (03/21/2025 1:27 AM EDT) Only the most recent of2 resultswithin the time period is included. POC Urine Specific [place] 1.010 1.010, 1.015, 1.020, 1.025 03/21/2025 1:22 AM EDT [facility] Urine Leukocyte Esterase Negative Negative 03/21/2025 1:22 AM EDT [facility] Urine Nitrite Negative Negative 03/21/2025 1:22 AM EDT [facility] Urine pH 6.0 5.0, 6.0, 6.5, 7.0, 7.5, 8.0, 8.5, 5.5 03/21/2025 1:22 AM EDT [facility] Urine Protein Negative Negative 03/21/2025 1:22 AM EDT [facility] Urine Glucose Negative Negative 03/21/2025 1:22 AM EDT [facility] Urine Ketones Negative Negative 03/21/2025 1:22 AM EDT [facility] Urine Urobilinogen 0.2 E.U./dL 03/21/2025 1:22 AM EDT [facility] Urine Bilirubin Negative Negative 03/21/2025 1:22 AM EDT [facility] Urine Blood/HGB Negative Negative 03/21/2025 1:22 AM EDT [facility] Urine 03/21/2025 1:27 AM EDT 03/21/2025 1:22 AM EDT us Thelma Mckeon DO POINT OF CARE TEST ORDERABLE S Final Result [facility] [address] [place] [address], * Extra Urine [place] (03/21/2025 1:12 AM EDT) Extra Tube Auto Resulted 03/21/2025 3:02 AM EDT [facility] Urine Urine specimen collection, clean catch / Unknown 03/21/2025 1:12 AM EDT 03/21/2025 1:22 AM EDT us Ammy Peñaloza TIMING INSPECTOR-SECURITY OFFICER URINE ORDERABLES Final Res ult Performing Organization Address [facility] Co de Phone Number [address] [place] [address], [place] * Extra Urine Culture (03/21/2025 1:12 AM EDT) Extra Tube Auto Resulted 03/21/2025 3:02 AM EDT [facility] Urine Urine specimen collection, clean catch / Unknown 03/21/2025 1:12 AM EDT 03/21/2025 1:22 AM EDT us Ammy Peñaloza TIMING INSPECTOR-SECURITY OFFICER URINE ORDERABLES Final Res ult Performing Organization Address [facility] de Phone Number [address] [place] [address], [place] * Extra Urine (03/21/2025 1:12 AM EDT) Extra Tube Auto Resulted 03/21/2025 3:02 AM EDT [facility] Urine Urine specimen collection, clean catch / Unknown 03/21/2025 1:12 AM EDT 03/21/2025 1:22 AM EDT us Ammy Peñaloza TIMING INSPECTOR-SECURITY OFFICER URINE ORDERABLES Final Res ult Performing Organization Address [facility] de Phone Number [address] [place] [address], [place] * CT abdomen and pelvis with contrast (03/20/2025 10:00 PM EDT) Only the most recent of2 resultswithin the time period is included. Anatomical Region Laterality Modality Body, Abdomen, Body [...] Light Blue Top (03/20/2025 8:51 PM EDT) Only the most recent of2 resultswithin the time period is included. Extra Tube Auto Resulted 03/20/2025 10:01 PM EDT [facility] Blood Venous blood / Unknown 03/20/2025 8:51 PM EDT 03/20/2025 8:58 PM EDT us Thelma Mckeon DO LAB BLOOD ORDERABLES Final R esult [facility] [address] [place] [address], [place] * (ABNORMAL) Erythrocyte Sedimentation Rate (ESR) (03/20/2025 8:50 PM EDT) Only the most recent of2 resultswithin the time period is included. ESR, Erythrocyte Sedimentation Rate 31(H) 0 - 15 mm/h 03/21/2025 10:33 AM EDT [facility] Blood Venous blood / Unknown 03/20/2025 8:50 PM EDT 03/20/2025 8:57 PM EDT Thelma Mckeon DO LAB BLOOD ORDERABLES Final R esult [facility] [address] [place] [address], [place] [phone] * Lactate w/ Reflex (03/20/2025 8:50 PM EDT) Only the most recent of3 resultswithin the time period is included. LACTATE W/REFLEX 1.2 0.4 - 2.0 mmol/L 03/20/2025 9:18 PM EDT [facility] Blood Venous blood / Unknown 03/20/2025 8:50 PM EDT 03/20/2025 8:58 PM EDT Narrative [facility] - 03/20/2025 9:18 PM EDT Result did not trigger repeat Lactate, re-order if needed. us Ammy Peñaloza TIMING INSPECTOR-SECURITY OFFICER LAB BLOOD ORDERABLES Final Result Performing Organization Address City/[facility] Co de Phone Number [address] [place] [address], [place] * C-reactive protein (03/20/2025 8:50 PM EDT) Only the most recent of3 resultswithin the time period is included. C REACTIVE PROTEIN 0.6 <=0.7 mg/dL 03/20/2025 9:58 PM EDT [facility] Blood Venous blood / Unknown 03/20/2025 8:50 PM EDT 03/20/2025 8:57 PM EDT us Thelma Mckeon DO LAB BLOOD ORDERABLES Final R esult Performing Organization Address [facility] Co de Phone Number [address] [place] [address], [place] * Lipase (03/20/2025 8:50 PM EDT) Only the most recent of4 resultswithin the time period is included. LIPASE 38 17 - 40 U/L 03/20/2025 9:14 PM EDT [facility] Blood Venous blood / Unknown 03/20/2025 8:50 PM EDT 03/20/2025 8:57 PM EDT us Ammy Peñaloza TIMING INSPECTOR-SECURITY OFFICER LAB BLOOD ORDERABLES Final Result Performing Organization Address City/[facility] Co de Phone Number [address] [place] [address], [place] * X-ray abdomen complete decubitus erect (03/09/2025 3:38 PM EDT) Anatomical Region Laterality Modality Body, Abdomen N/A Computed Radiogr aphy 03/09/2025 3:42 PM EDT Narrative 03/09/2025 3:43 PM EDT XR ABDOMEN COMP DECUB ERECT Clinical history:Rule out obstruction abdominal pain Comparison: `10/21/2024. Findings: Nonspecific nonobstructive bowel gas pattern. Scattered gas filled nondistended bowel. Mild to moderate amount of stool in the colon. Impression: Nonobstructive, nonspecific bowel gas pattern. Finalized by Hank Harvey MD on 03/09/2025 3:43 PM Procedure Note Hank Harvey MD - 03/09/2025 XR ABDOMEN COMP DECUB ERECT Clinical history:Rule out obstruction abdominal pain Comparison: `10/21/2024. Findings: Nonspecific nonobstructive bowel gas pattern. Scattered gas fillednondistended bowel. Mild to moderate amount of stool in the colon. Impression: Nonobstructive, nonspecific bowel gas pattern. Finalized by Hank Harvey MD on 03/09/2025 3:43 PM Natalio Araiza DO IMG DIAGNOSTIC IMAGING ORDERABLE S Final Result * Light Blue Top (02/17/2025 9:56 PM EDT) Extra Tube Auto Resulted 02/17/2025 11:01 PM EDT [facility] Blood Venous blood / Unknown 02/17/2025 9:56 PM EDT 02/17/2025 9:59 PM EDT us Marcos Bush DO LAB BLOOD ORDERABLES Final R esult [facility] [address] [place] [address], [place] * Unlisted Lab Test humira trough/ab (01/27/2025 11:19 AM EDT) Unlisted lab test Sent to reference lab 01/27/2025 6:29 PM EDT [facility] MISCELLANEOUS 01/27/2025 11: 19 AM EDT 01/27/2025 11:25 AM EDT us Elen Rodarte MD LAB BLOOD ORDERABLES Final Resul t [facility] * Generic Send Out Lab Use Only (01/27/2025 11:19 AM EDT) Test name ADALP ADALIMUMAB QUANT WITH AB, SERUM 01/27/2025 6:30 PM EDT [facility] Test result SEE COMMENTS 01/31/2025 08:36 PM 01/31/2025 9:36 PM EDT [facility] Comment: NOTE Test Result Flag Unit RefValue Adalimumab QN with Antibodies, S Adalimumab QN, S 9.4 mcg/mL REFERENCE VALUE Limit of Quantitation = 0.8 mcg/mL ADDITIONAL INFORMATION This test was developed and its performance characteristics determined by [facility] in a manner consistent with CLIA requirements. This test has not been cleared or approved by the U.S. Food and Drug Administration. Adalimumab Ab, S <10.0 AU/mL <14.0 ADDITIONAL INFORMATION This test was developed and its performance characteristics determined by [facility] in a manner consistent with CLIA requirements. This test has not been cleared or approved by the U.S. Food and Drug Administration. Adalimumab Interpretation See Note Absence of detectable lhfwzddk-ap-sltkkbcbxf (MARÍA [place]). At this concentration of adalimumab (ADL), a low-titer (50-150 AU/mL) or moderate titer (150-500 AU/mL) MAR[place]A [place] cannot be excluded. However, the presence of a high-titer MAR[place]A [place] (>=500 U/mL) is unlikely. If there is clinical suspicion for a low-titer MAR[place], suggest submission of a new sample obtained at trough. This test has demonstrated drug tolerance up to 40 mcg/mL for ATAs >= 500 AU/mL, up to 15 mcg/mL for ATAs between 150-500 and up to 8 mcg/mL ADL for ATAs between 50-150 AU/mL. Test Performed by: [facility] [place] [address] [place] [address] Refueling Ramp Attendant: Kristina Quintana Ph.D.; CLIA# [id number] MISCELLANEOUS 01/27/2025 11: 19 AM EDT 01/27/2025 11:25 AM EDT Elen Rodarte MD LAB ORDERABLES Final Result [address], [place] [address] * Vitamin D 25 hydroxy (01/27/2025 11:19 AM EDT) Vit D, 25-Hydroxy 33.4 30 - 100 ng/mL 01/27/2025 6:59 PM EDT [facility] Comment: Vitamin D status 25 [place] Vitamin D Deficiency <20 ng/mL Insufficiency 20-29 ng/mL Sufficiency 30-100 ng/mL Toxicity >100 ng/mL NOTE: A pediatric reference range has not been established by the attache of this kit. The [place] [employer] recommends a Vitamin D level of = or >20ng/mL in infants and children. PLASMA 01/27/2025 11:1 9 AM EDT 01/27/2025 11:25 AM EDT Valeri CALVERT LAB BLOOD ORDERABLES Final Result Performing Organization Address City/[facility]/ZIP Co de Phone Number [facility] [address] [facility] [address] [place] [address] * Vitamin B12 (01/27/2025 11:19 AM EDT) Vitamin B-12 416 180 - 914 pg/mL 01/27/2025 6:55 PM EDT [facility] Serum / Unknown 01/27/2025 1 1:19 AM EDT 01/27/2025 11:25 AM EDT Valeri CALVERT LAB BLOOD ORDERABLES Final Result Performing Organization Address City/[facility] Co de Phone Number [facility] [address] [place] [address], [facility] [address] [place] [address] from Last [address] [place] [place] [address] MEDICAID Advance Directives * Full Code (Latest Code Status on File) Date Activated Date Inactivated Comments 03/21/2025 12:03 PM 03/24/2025 7:13 PM * Full Code Date Activated Date Inactivated Comments 03/21/2025 1:24 AM 03/21/2025 11:52 AM * Full Code Date Activated Date Inactivated Comments 11/05/2024 6:40 PM 11/08/2024 3:40 PM * Full Code Date Activated Date Inactivated Comments 10/08/2024 5:49 PM 10/09/2024 2:09 PM * Full Code Date Activated Date Inactivated Comments 07/15/2024 4:01 PM 07/22/2024 4:05 PM Care Teams Consulting Utility Forester Relationship Specialty Start Date End Date Tee Gonzales MD [address] [place] [address] PCP - General Family Medicine 03/09/25
--- OUTSIDE RECORDS SUMMARY | 2025-03-28 18:35 | XMS_ITS | Encounter Summary ---
Author Organization [facility] s tem Address [id number] [address] [place] [address] Care Team Providers Care Requirements Manager Name Role Phone Tee Gonzales MD Primary Care Provider [phone] Reason for Visit * Reason Onset Date Comments Prior Authorization 02/04/2025 Dora Encounter Details Date Type Department Care Team (Late st Contact Info) Description 02/04/2025 Telephone [facility] [address] [place] [address] [facility] Author[facility] (Dora) Social History Tobacco Use Types Packs/Day Years Used Date Smoking Tobacco: Former Cigarettes Smokeless Tobacco: Former Alcohol Use Standard Drinks/Week Comments Not Currently 0 (1 standard drink = 0.6 oz pur e alcohol) Not very much [facility] Utilities Answer Date Recorded In the past 12 months has [employer], gas, oil, or water company threatened to [...] encounter Miscellaneous Notes * Telephone Encounter - Debbie Galarza - 02/04/2025 12:04 PM EDT Medication name, strength & form: Humira 40mg/0.8ml Pen Diagnosis: Crohn's Insurance: [place] Medicaid [place] Date/Time submitted: 02/04/25 - via Electronic submission via electronic PA. PA Khan: [id number] Please note: Patient's pharmacy benefit may take up to 15 days to review PA and make a determination. * Telephone Encounter - Anabela Phan RPH - 02/04/2025 12:04 PM EDT Per [place] Medicaid the patient has a primary insurance. I spoke with the patient and he will need tocall Medicaid at [phone] and let them know his ID # [id number] and that he does not have a primary insurance. We will not be able to bill his Humira until he resolves this. * Telephone Encounter - Anabela Phan RPH - 02/04/2025 12:04 PM EDT Weekly Humira dosing is approved through 06.17.25. We will contact the patient to set up delivery. * Telephone Encounter - Annette Russell LPN - 02/04/2025 12:04 PM EDT Disregard, pt is transitioning to [facility]. documented in this encounter Plan of Treatment Upcoming Encounters Date Type Department Care Team (Latest Contact Info) Description 04/10/2025 8:30 AM EDT Hospital Encounter [facility] - Endoscopy [address] [place] [address], [address] [place] [address] [place] [address] [place] [address], [address] [place] [address] 04/10/2025 8:30 AM EDT - 04/10/2025 9:00 AM EDT Surgery [facility]oscopy [address] [place] [address], [address] [place] [address] [place] [address] [place] [address], [address] [place] [address] ESOPHAGOGASTRODUODENOSCOPY DIAGNOSTIC [32296 (CPT )] 04/23/2025 11:00 AM EDT Infusion [facility] [address] [place] [address] [address] [place] [address] 05/20/2025 9:15 AM EDT Office Visit [facility], A Department of [address] [place] [address] [place] [address] [place] [address], [address] [place] [address] 05/21/2025 11:00 AM EDT Infusion [facility] [address] [facility] [address] [place] [id number] Scheduled Procedures Name Priority Associated Diagnoses Date/Ti [...] documented as of this encounter Care Teams Requirements Manager Relationship Specialty Start Date End Date Tee Gonzales MD [address] [place] [address] PCP - General Family Medicine 03/09/25 documented as of this encounter
--- OUTSIDE RECORDS SUMMARY | 2025-03-28 18:35 | XMS_ITS | Encounter Summary ---
Author Organization [employer] [facility] [employer] Address [id number] [address] [place] [address] Care Team Providers Care Position Classification Specialist Name Role Phone Tee Gonzales MD Primary Care Provider [phone] Encounter Details Date Type Department Care Team (Late st Contact Info) Description 07/11/2024 Telephone [facility] [address] [facility] [address] [place] [address] Karo Menon CMA Social History Tobacco Use Types Packs/Day Years Used Date Smoking Tobacco: Every Day Cigarettes Smokeless Tobacco: Former Alcohol Use Standard Drinks/Week Comments Not Currently 0 (1 standard drink = 0.6 oz pur e alcohol) [facility] Utilities Answer Date Recorded In the past 12 months has [employer], gas, oil, or water [employer] threatened to shut off services in your [...] Description 04/10/2025 8:30 AM EDT Hospital Encounter [facility] - Endoscopy [address] [place] [address], [address] [place] [address] Elen Rodarte MD [address] [place] [address], [address] [place] [address] 04/10/2025 8:30 AM EDT - 04/10/2025 9:00 AM EDT Surgery [facility] [address] [place] [address], [address] [place] [address] Elen Rodarte MD [address] [place] [address], [address] [place] [address] ESOPHAGOGASTRODUODENOSCOPY DIAGNOSTIC [44207 (CPT )] 04/23/2025 11:00 AM EDT Infusion [facility] [address] [place] [address] [address] [place] [address] 05/20/2025 9:15 AM EDT Office Visit [facility], A Department of [address] [place] [address] Elen Rodarte MD [address] [facility], [address] [place] [address] 05/21/2025 11:00 AM EDT Infusion [facility] [address] [place] [address] [address] [place] [address] Scheduled Procedures Name Priority Associated Diagnoses Date/Ti me ESOPHAGOGASTRODUODENOSCOPY DIAGNOSTIC Crohn's disease of both small and large intestine without complication ([facility]) [K50.80] - Primary 04/10/2025 8:30 AM EDT COLONOSCOPY DIAGNOSTIC / SCREENING Crohn's disease of both small and large intestine without complication ([facility]) [K50.80] - Primary 04/10/2025 8:30 AM EDT documented as of this encounter Visit Diagnoses Not on filedocumented in this encounter Additional Health Concerns Infection Onset Date Last Indicated Resolved Time Enteric Rule-Out 07/13/2024 07/13/2024 07/14/2024 3:25 AM EDT Enteric Rule-Out 07/15/2024 07/15/2024 07/15/2024 6:30 PM EDT documented as of this encounter Care Teams Position Classification Specialist Relationship Specialty Start Date End Date Tee Gonzales MD [address] [place] [address] PCP - General Family Medicine 03/09/25 documented as of this encounter
--- NOTE | 2025-03-28 18:45 | CT_ITS ---
The [address] [address] Patient Name: UMER HERNANDEZ MRN: [id number] date: 1995 Sex: M Assigned Patient Location: ER Current Patient Location: ER Accession/Order Number: [id number] Exam Date: 03/28/2025 19:11 Report Date: 03/28/2025 19:17 At the request of: BRIAN CHAMPION Procedure: CT abdomen pelvis w con CT Abdomen and Pelvis withcontrast TECHNIQUE: Axial imaging with 2-D reconstruction.100 cc of Omnipaque 300. The CT exam was performed using one or more the following dose reduction techniques: Automated exposure control, adjustment of the MA and/or Kv according to patient size, or use of the iterative reconstruction technique. COMPARISON: None History: Abdominal pain LIMITATIONS: None LOWER THORAX Unremarkable LIVER: Unremarkable GALLBLADDER: Gallbladder absent BILE DUCTS: No dilatation SPLEEN: Unremarkable PANCREAS: Unremarkable ADRENAL GLANDS: Unremarkable KIDNEYS:Unremarkable AORTA: No abdominal aortic aneurysm identified. RETROPERITONEUM: No significant retroperitoneal abnormalities identified. MESENTERY:Unremarkable STOMACH:Mild distention containing fluid and gas. SMALL BOWEL: The small bowel loops are nondistended. Right bowel surgery changes APPENDIX: Absent COLON: Unremarkable URINARY BLADDER: Urinary bladder is unremarkable. REPRODUCTIVE SYSTEM: Reproductive structures are unremarkable. PNEUMOPERITONEUM: None PERITONEAL FLUID:None BONY STRUCTURES: Unremarkable ABDOMINAL WALL: Unremarkable CT/CT abdomen pelvis w con IMPRESSION: No acute findings. Mild gastric distention containing fluid and gas. Nondistended bowel. Impression dictated by: Burak Araiza M.D. 03/28/2025 7:17 PM Dictation Location: [facility] Electronically authenticated by: [id number] Y Date: 03/28/2025 19:17
--- NOTE | 2025-03-28 18:46 | ED.ABDPAIN1 ---
HPI - Abdominal Pain General Chief Complaint: Abdominal Pain Stated Complaint: STOMACH ISSUES Time Seen by Provider: 03/28/25 18:44 Mode of arrival: walk-in History of Present Illness HPI narrative: 29 year old male presents to the ED for low abd pain/cramping. Onset was over one week ago. Reports hx crohn's disease. Denies fever, chills, N/V, urinary symptoms. States he had a procedure to remove cysts on 03/18/25. Reports going to the ER in [place], [place] 03/20/25 for the abd pain. States he had a CT scan that showed his intestines were swollen. Reports he was transferred to a facility in [place], [place] for admission due to the facility in [place] not having bed availability. Reports he is not feeling better. He was discharged with prescriptions for Zofran and prednisone. He is scheduled for a colonoscopy and endoscopy later this month. Related Data Home Medications ?Medication ?Instructions ?Recorded ?Confirmed prednisone 10 mg tablet 10 mg PO Q12H 03/28/25 03/28/25 risankizumab-rzaa 60 mg/mL 600 mg IV .q28 days 03/28/25 03/28/25 intravenous solution (Skyrizi) Allergies Allergy/AdvReac Type Severity Reaction Status Date / Time No Known Drug Allergies Allergy Verified 03/28/25 18:31 Review of Systems ROS Constitutional Denies: fever or chills Ears, nose, mouth, and throat Denies: neck pain Cardiovascular Denies: chest pain Respiratory Denies: shortness of breath Gastrointestinal Reports: abdominal pain; Denies: nausea, vomiting or diarrhea Genitourinary Denies: painful urination, urinary frequency, urinary urgency or blood in urine Musculoskeletal Denies: back pain Neurological Denies: headache or dizziness [facility] Medical History (Updated 03/28/25 @ 19:47 by Katy Blanco) Crohn's disease ?K50.90 - Crohn's disease, unspecified, without complications (ICD-10) Tachycardia ?R00.0 - Tachycardia, unspecified (ICD-10) Surgical History (Updated 06/27/24 @ 17:00 by Mary Lindquist RN) History of back surgery ?Z98.890 - Other specified postprocedural states (ICD-10) Social History Little interest or pleasure in doing things: not at all Feeling down, depressed, or hopeless: not at all Exam Constitutional Vital Signs, click to edit/add: Last Vital Signs Temp 98.6 F 03/28/25 18:31 Pulse 86 03/28/25 18:31 Resp 16 03/28/25 18:31 BP 133/72 03/28/25 18:31 Pulse Ox 100 03/28/25 18:31 O2 Del Method Room Air 03/28/25 18:31 Common normals: no apparent distress and oriented x3 General appearance: cooperative HENMT Common normals: moist oral mucous membranes Eye Common normals: conjunctivae normal and no scleral icterus Neck & C-Spine Common normals: supple Chest Chest: symmetrical chest wall rise Respiratory Common normals: normal respiratory effort Effort & inspection: able to speak in complete sentences and symmetric chest movement Cardio Common normals: regular rate and regular rhythm GI Common normals: Normal to inspection, nondistended, normoactive bowel sounds present and soft to palpation Palpation: tender (Generalized) Neuro Common normals: oriented x3 and moves all extremities Sensorium/orientation: awake and alert Speech: speech normal Course Vital Signs Vital signs: Vital Signs Temperature 98.6 F 03/28/25 18:31 Pulse Rate 86 03/28/25 18:31 Respiratory Rate 16 03/28/25 18:31 Blood Pressure 133/72 03/28/25 18:31 Pulse Oximetry 100 03/28/25 18:31 Oxygen Delivery Method Room Air 03/28/25 18:31 Temperature 98.6 F 03/28/25 18:31 Pulse Rate 86 03/28/25 18:31 Respiratory Rate 16 03/28/25 18:31 Blood Pressure 133/72 03/28/25 18:31 Pulse Oximetry 100 03/28/25 18:31 Oxygen Delivery Method Room Air 03/28/25 18:31 MDM - Abdominal Pain MDM Narrative Medical decision making narrative: CBC and CMP were unremarkable. CT scan was negative for acute findings. Findings were discussed with the patient. He was medicated for his discomfort here. Continue the prednisone as directed. Follow up with GI as scheduled. Return to the ED for worsening symptoms. Differential Diagnosis Differential diagnosis: Likely abdominal pain, diverticulitis, small bowel obstruction and other Medical Records Attestation: I reviewed the patient's medical records. Lab Data Attestation: I reviewed the patient's lab results. Labs: Lab Results 03/28/25 Range/Units 18:38 WBC 7.7 (4.0-11.0) 10^3/uL RBC 4.83 (4.70-6.10) 10^6/uL Hgb 13.8 L (14.0-18.0) g/dL Hct 42.4 (42.0-54.0) % MCV 87.8 (80.0-94.0) fL MCH 28.6 (25.9-34.0) pg MCHC 32.5 (29.9-35.2) g/dL RDW 12.1 (11.0-15.0) % Plt Count 325 (150-450) 10^3/uL MPV 9.0 L (9.5-13.5) fL Neut % (Auto) 57.6 (43.0-75.0) % Lymph % (Auto) 29.8 (20.5-60.0) % Sharp % (Auto) 9.2 (1.7-12.0) % Eos % (Auto) 3.0 (0.9-7.0) % Baso % (Auto) 0.1 L (0.2-2.0) % Neut # (Auto) 4.4 (1.4-6.5) 10^3/uL Lymph # (Auto) 2.3 (1.2-3.8) 10^3/uL Sharp # (Auto) 0.7 (0.3-0.8) 10^3/uL Eos # (Auto) 0.2 (0.0-0.7) 10^3/uL Baso # (Auto) 0.0 (0.0-0.1) 10^3/uL Abs Immat Gran (auto) 0.02 (0.00-0.03) 10^3/uL Imm/Tot Granulo (auto) 0.3 (0.0-0.5) % Sodium 140 (136-145) mmol/L Potassium 4.0 (3.5-5.1) mmol/L Chloride 101 (98-107) mmol/L Carbon Dioxide 31.0 (21.0-32.0) mmol/L Anion Gap 12.0 BUN 24.0 H (7.0-18.0) mg/dL Creatinine 0.83 (0.70-1.30) mg/dL Est GFR ( Amer) >60 (>=60 mL/min/1.73m^2) Est GFR (Non-Af Amer) >60 (>=60 mL/min/1.73m^2) BUN/Creatinine Ratio 28.9 Glucose 79 (74-106) mg/dL Calcium 9.4 (8.5-10.1) mg/dL Total Bilirubin 0.3 (0.2-1.0) mg/dL AST 15 (15-37) U/L ALT 52 (16-63) U/L Alkaline Phosphatase 94 (46-116) U/L Total Protein 7.1 (6.4-8.2) g/dL Albumin 3.2 L (3.4-5.0) g/dL Globulin 3.9 g/dL Albumin/Globulin Ratio 0.8 Lipase 48.0 (16.0-77.0) U/L Imaging Data CT scan - abdomen: Attestation: I have reviewed the pertinent imaging results. Radiologist's impression: ITS Impressions Abdomen/Pelvis CT 03/28/25 18:45 IMPRESSION: No acute findings. Mild gastric distention containing fluid and gas. Nondistended bowel. Impression dictated by: Burak Araiza M.D. 03/28/2025 7:17 PM Dictation Location: [facility] ([facility] Electronically authenticated by: [id number] Y Date: 03/28/2025 19:17 Discharge Plan Discharge Chief Complaint: Abdominal Pain Clinical Impression: Abdominal pain, Hx of Crohn's disease Patient Disposition: Home, Self-Care Time of Disposition Decision: 19:46 Condition: Good Mode of Transportation: Private Vehicle Prescriptions / Home Meds: No Action prednisone 10 mg tablet 10 mg PO Q12H Skyrizi 60 mg/mL solution 600 mg IV .q28 days Print Language: Cuban Instructions: Abdominal Pain (ED) Additional Instructions: Return to the ER for worsening symptoms. Follow up with your flyer builder as scheduled. Referrals: CASEY CARPIO [Primary Care Provider, Family Practice] - 1 week
--- OUTSIDE RECORDS SUMMARY | 2025-03-28 18:46 | XMS_ITS | CCD ---
Author Organization [facility]ini[facility] Care Team Providers Care Ehr Trainer Name Role Phone NARGIS VERONICA Unavailable Unavailable [...] LUE ., GAIL M Attending Unavailable REQUEST, DR NONE LISTED Primary Care Unavaila ble LUE ., GAIL Bo Consulting Unavailable LUE ., GAIL M Admitting Unavailable LUE ., GAIL M Attending Unavailable REQUEST, DR NONE LISTED Primary Care Unavaila ble REQUEST, DR NONE LISTED Referring Unavaila ble AGUBOSIM, CASEY Consulting Unavailable LONG, ELEUTERIO Consulting Unavailable ANASTASIIA, BAL Consulting Unavailable LUE ., GAIL M Consulting Unavailable MIKHAIL WILDER Referring Unavailable ANGEL CHARLTON Primary Care Unavailable ZOLTAN, ANGEL Primary Care Unavailable MILEY VERDUGO Attending Unavailable ANGEL CHARLTON Primary Care Unavailable GADIEL LUQUE Attending Unavailable DARRION BARTH Referring Unavailable ZOLTAN, ANGEL Primary Care Unavailable NONE, XXXX Primary Care Physician Unavailab Casey Clark Primary Care Physician [phone] MD Brooklyn Taylor Attending Provider MD Casey Carpio Primary Care Provider MD Casey Carpio Primary Care Provider [phone] MD Casey Carpio Primary Care Provider MD Brooklyn Taylor Attending Provider [phone] Luiz SCHILLINGRadha Betzy Attending Provider [phone] Malik Madison MD Primary Care Provider [phone] Casey Carpio MD Primary Care Provider Brooklyn Taylor MD Attending Provider [phone] Casey Carpio MD Primary Care Provider [phone] Nathan Obregon MD Emergency Provider Casey Carpio MD Primary Care Provider [phone] Malik Madison MD Primary Care Provider [phone] TAYLOR V, BROOKLYN Attending Unavailable TAYLOR V, BROOKLYN Attending Unavailable TAYLOR V, BROOKLYN Attending Unavailable TAYLOR V, BROOKLYN Attending Unavailable TAYLOR V, BROOKLYN Attending Unavailable TAYLOR V, BROOKLYN Attending Unavailable TAYLOR V, BROOKLYN Attending Unavailable Casey Carpio MD Primary Care Provider Brooklyn Taylor MD Attending Provider [phone] ELIZA PA Attending Unavailable ROSS, CASEY E Primary Care Unavailable ROSS, CASEY E Primary Care Unavailable DARRION LOPEZ Attending Unavailable ROSS, CASEY E Primary Care Unavailable MARGARITO LIVINGSTON Attending Unavailable BOUMEGOUAS, MANEL Attending Unavailable ROSS, CASEY E Referring Unavailable ROSS, CASEY E Primary Care Unavailable BOUMEGOUAS, MANEL Attending Unavailable BOUMEGOUAS, MANEL Referring Unavailable ROSS, CASEY E Primary Care Unavailable ROSS, CASEY E Primary Care Unavailable YUDITH COHEN Attending Unavailable STACIE, EVELIN M Admitting Unavailable ROSS, CASEY E Primary Care Unavailable ELIZA HAGER Attending Unavailable BOUMEGOUAS, MANEL Attending Unavailable BOUMEGOUAS, MANEL Referring Unavailable ROSS, CASEY E Primary Care Unavailable BOUMEGOUAS, MANEL Attending Unavailable ROSS, CASEY E Referring Unavailable ROSS, CASEY E Primary Care Unavailable ELIZA HAGER Attending Unavailable ROSS, CASEY E Primary Care Unavailable ROSS, CASEY E Primary Care Unavailable ELIZA HAGER Attending Unavailable EVELIN QUINONES M Admitting Unavailable ELIZA HAEGR Attending Unavailable ELIZA HAGER Referring Unavailable ROSS, CASEY E Primary Care Unavailable ELIZA HAGER Attending Unavailable ELIZA HAGER Referring Unavailable ROSS, CASEY E Primary Care Unavailable ROSS, CASEY E Primary Care Unavailable ELIZA HAGER Attending Unavailable ROSS, CASEY E Primary Care Unavailable IFRAH ROCHE Attending Unavailable YUKI, OSIELSER Referring Unavailable ROSS, CASEY E Primary Care Unavailable TAHMINA MEHTA Attending Unavailable ROSS, CASEY E Primary Care Unavailable ROSS, CASEY E Primary Care Unavailable BREANA COHEN Attending Unavailable ROSS, CASEY E Primary Care Unavailable RENÉE ARAIZA Attending Unavailable ROSS, CASEY E Primary Care Unavailable LAINA WHITLEY Attending Unavailable Taylor, Brooklyn Admitting Unavailable Taylor, Brooklyn Attending Unavailable Ross, Casey E Primary Care Unavailable Taylor, Brooklyn Admitting Unavailable Ross, Casey E Primary Care Unavailable Taylor, Brooklyn Attending Unavailable Ross, Casey E Primary Care Unavailable Taylor, Brooklyn Admitting Unavailable Taylor, Brooklyn Attending Unavailable Ross, Casey E Primary Care Unavailable Nathan Obregon Jr Admitting Unavailable Nathan Obregon Jr Attending Unavailable Ross, Casey E Primary Care Unavailable Taylor, Brooklyn Admitting Unavailable Taylor, Brooklyn Attending Unavailable Werner Deeanda M Admitting Unavailable Luiz Radha M Attending Unavailable Taylor, Brooklyn Admitting Unavailable NO FAMILY, PHYSICIAN Primary Care Unavailable Taylor, Brooklyn Attending Unavailable Ross, Casey E Primary Care Unavailable Taylor, Brooklyn Admitting Unavailable Taylor, Brooklyn Attending Unavailable Jose E Carpio MDuel E Primary Care Provider BRET MIRZA Attending Unavailable ROSS, CASEY E Referring Unavailable ROSS, CASEY E Primary Care Unavailable ROSS, CASEY E Referring Unavailable ROSS, CASEY E Primary Care Unavailable MAXIJAR, OSIELSER Attending Unavailable HAJAR, NASSER Referring Unavailable ROSS, CASEY E Primary Care Unavailable SPENCER GATES Admitting Unavailable ANDREZR, OSIELSER Consulting Unavailable ANDREZROSIELSER Attending Unavailable ANDREZR, NASSER Referring Unavailable ROSS, CASEY E Primary Care Unavailable LEXIE SILVA Attending Unavailable ROSS, CASEY E Primary Care Unavailable SOFÍA BARR Referring Unavailable ROSS, CASEY E Primary Care Unavailable NESSA KNOX Attending Unavailable ROSS, CASEY E Referring Unavailable ROSS, CASEY E Primary Care Unavailable LOLA WRIGHT Attending Unavail able ROSS, CASEY E Referring Unavailable ROSS, CASEY E Primary Care Unavailable LOLA WRIGHT Referring Unavail able ROSS, CASEY E Primary Care Unavailable BRET MIRZA Attending Unavailable ROSS, CASEY E Referring Unavailable ROSS, CASEY E Primary Care Unavailable RAJ KATZ Attending Unavailable ROSS, CASEY E Referring Unavailable ROSS, CASEY E Primary Care Unavailable BRET MIRZA Attending Unavailable ROSS, CASEY E Referring Unavailable ROSS, CASEY E Primary Care Unavailable FABIO GUEVARA Referring Unavailable ROSS, CASEY E Primary Care Unavailable EVELIN QUINONES Admitting Unavailable ROSS, CASEY E Primary Care Unavailable FRANCES ALANIS Attending Unavailable Christian, Casey E. Attending Unavailable Christian, Casey E. Attending Unavailable Christian, Casey E. Attending Unavailable Kira Velez Attending Unavailable Christian, Casey E. Attending Unavailable Christian, Casey E. Attending Unavailable Christian, Casey E. Attending Unavailable Ion Rogers Attending Unavailable Christian, Casey E. Referring Unavailable Christian, Casey E. Admitting Unavailable Kira Velez Admitting Unavailable Christian, Casey E. Admitting Unavailable Christian, Casey E. Attending Unavailable Kira Velez Attending Unavailable Christian, Casey E. Attending Unavailable Medications Current Medications Medication Drug Class(es) Dates Sig (Normalized) Sig (Original) acetaminophen 500 mg oral tablet (20 sources) Start: 05-03-2024 acetaminophen (Tylenol) 500 MG tablet 05/03/2024 Active Start: 05-03-2024 End: 06-18-2024 take 2 tablets by mouth every six hours as needed for pain Acetaminophen (Tylenol Extra Strength) 500 mg tablet Discontinued 1000 MG PO Every 6 hours as needed for pain May 03, 2024 12:00am June 18, 2024 4:40pm acetaminophen 325 mg / oxyCODONE hydrochloride 5 mg oral tablet (3 sources) Opioid Agonist Start: 02-02-2025 End: 02-05-2025 take 1 tablet by mouth every six hours as needed for pain, then take 4 tablets by mouth once daily as needed for pain oxyCODONE-acetaminophen (PERCOCET) 5-325 mg per tablet Indications: Generalized abdominal pain , History of Crohn's disease Take 1 tablet by mouth every 6 (six) hours as needed for pain for up to 3 days. 3 Day Supply Max Daily Amount: 4 tablets 12 tablet 02/02/2025 02/05/2025 Active 0.8 ml adalimumab 50 mg/ml prefilled syringe (20 sources) Tumor Necrosis Factor Yaquelin Start: 02-04-2025 inject 0.8 mL by subcutaneous injection every week adalimumab (HUMIRA) 40 mg/0.8 mL injection INJECT 0.8ML UNDER THE SKIN ONCE WEEKLY 3.2 each 5 02/04/2025 Active Start: 08-26-2024 Humira-CD/UC/H S Starter 80 MG/0.8ML Auto-injector Kit 08/26/2024 Active Start: 08-26-2024 Humira-CD/UC/H S Starter 80 MG/0.8ML Auto-injector Kit Administer 160mg subcutaneously at day 0 then 80mg subcut at day 15 08/26/2024 Active Start: 08-26-2024 Adalimumab (Hu mike(Cf) Pen) 40 mg/0.4 mL pen injector kit Active 40 MG SUBCUT every week August 26, 2024 1:00am Start: 08-26-2024 Adalimumab (Hu mike(Cf) Pen) 40 mg/0.4 mL pen injector kit Active 40 MG SUBCUT Q14D August 26, 2024 12:00am Start: 08-26-2024 End: 10-31-2024 Adalimumab (Humira(Cf) Pen Lklaas-Cy-Zv) 80 mg/0.8 mL pen injector kit Discontinued MG SUBCUT August 26, 2024 1:00am October 31, 2024 4:57pm End: 02-04-2025 inject 0.8 mL by subcutaneous injection once adalimumab (HUMIRA) 40 mg/0.8 mL injection Inject 0.8 mL (40 mg total) under the skin every 14 (fourteen) days. 02/04/2025 Discontinued (Reorder) adalimumab-ryvk 40 mg/0.4 mL auto-injector, kit (2 sources) Start: 09-06-2024 adalimumab-ryvk 40 mg/0.4 mL auto-injector, kit Indications: Crohn's colitis, with intestinal obstruction (CMS-HCC) Inject 40 mg under the skin every 14 (fourteen) days. 0.8 each 09/06/2024 Active bisacodyl 5 mg delayed release oral tablet (6 sources) Stimulant Laxative Start: 03-24-2025 take 1 tablet by mouth once daily as needed for constipation bisacodyL (DULCOLAX) 5 mg EC tablet Take 1 tablet (5 mg total) by mouth daily as needed for constipation. 2 tablet 03/24/2025 Active Start: 01-24-2025 End: 01-24-2025 take 2 tablets by mouth once bisacodyL (DULCOLAX) 5 mg EC tablet Take 2 tablets (10 mg total) by mouth once for 1 dose. Take as instructed 2 tablet 01/24/2025 01/24/2025 Active Start: 07-11-2024 End: 07-11-2024 take 2 tablets by mouth once bisacodyL (DULCOLAX) 5 mg EC tablet Take 2 tablets (10 mg total) by mouth once for 1 dose. Take as instructed 2 tablet 07/11/2024 07/11/2024 Active cetirizine hydrochloride 10 mg oral tablet (20 sources) Histamine-1 Receptor Antagonist Start: 03-06-2025 take 1 tablet by mouth once daily as needed Cetirizine (24hour Allergy) 10 mg tablet Active 10 MG PO Daily as needed for allergy symptoms March 06, 2025 12:00am cetirizine (ZyrT EC) 10 mg tablet Indications: allergic rhinitis Take 1 tablet (10 mg total) by mouth as needed Indications: inflammation of the nose due to an allergy. Active 0.4 ml enoxaparin sodium 100 mg/ml prefilled syringe (3 sources) Low Molecular Weight Heparin Start: 07-22-2024 End: 08-19-2024 inject 0.4 mL by subcutaneous injection in the morning enoxaparin (LOVENOX) 40 mg/0.4 mL syringe Inject 0.4 mL (40 mg total) under the skin in the morning for 28 days. 15 mL 07/22/2024 08/19/2024 Active famotidine 20 mg oral tablet (20 sources) Histamine-2 Receptor Antagonist Start: 07-01-2024 take 1 tablet by mouth once daily as needed for gastroesophageal reflux disease PEPCID 20 mg tablet Indications: gastroesophageal reflux disease Take 1 tablet (20 mg total) by mouth daily as needed Indications: gastroesophageal reflux disease. 07/01/2024 Active Start: 07-01-2024 take 1 tablet by yuan th twice daily Pepcid 20 mg Tab 20 mg = 1 tab(s), Oral, BID, # 60 tab(s), Refills(s) 0, Pharmacy: [id number], 165, cm, 07/01/24 7:44:00 EDT, Height/Length Dosing, 69.4, kg, 07/01/24 7:44:00 EDT, Weight Dosing Start Date: 07/01/24 Status: Ordered fluticasone propionate 0.05 mg/actuat metered dose nasal spray (20 sources) Corticosteroid Start: 06-18-2024 fluticasone pr opionate (FLONASE) 50 mcg/actuation nasal spray 06/18/2024 Active Start: 06-18-2024 fluticasone pr opionate (FLONASE) 50 mcg/actuation nasal spray Twice daily 06/18/2024 Active Start: 06-18-2024 End: 03-06-2025 take 1 spray(s) nasal route twice daily as needed Fluticasone Propionate (Flonase Allergy Relief) 50 mcg/actuation spray,suspension Active 1 SPRAY INTRANASAL Twice daily as needed for allergy symptoms March 06, 2025 12:00am administer 1 spray into each nostril hydrOXYzine hydrochloride 25 mg oral tablet (12 sources) Antihistamine Start: 08-10-2024 take 1 tablet by mouth once daily hydrOXYzine (ATARAX) 25 mg tablet Take 1 tablet (25 mg total) by mouth nightly. 12 tablet 08/10/2024 Active ibuprofen 200 mg oral tablet (20 sources) Nonsteroidal Anti-inflammatory Drug Start: 10-31-2024 take 2 tablets by mouth three times daily as needed for pain Ibuprofen 200 mg tablet Active 400 MG PO Three times daily as needed for fever or pain October 31, 2024 1:00am Start: 05-03-2024 End: 06-18-2024 take 1 tablet by mouth every eight hours Ibuprofen (Advil) 200 mg tablet Discontinued 200 MG PO Every 8 hours May 03, 2024 12:00am June 18, 2024 4:40pm magnesium sulfate 0.0277 meq/ml / potassium sulfate 0.0374 meq/ml / sodium sulfate 0.257 meq/ml oral solution (7 sources) Start: 03-24-2025 sodium,potassi um,mag sulfates (SUPREP) 17.5-3.13-1.6 gram recon soln Please follow office colonoscopy instructions. 354 mL 03/24/2025 Active Start: 07-11-2024 take 180 mL by mouth in the morning sodium,potassium,mag sulfates (SUPREP BOWEL PREP KIT) 17.5-3.13-1.6 gram recon soln Take 180 mL by mouth in the morning and 180 mL before bedtime. Take as instructed. 354 mL 07/11/2024 Suspended naloxone (NARCAN) 4 mg/actuation spray,non-aerosol nasal spray (3 sources) Start: 02-02-2025 naloxone (NARCAN) 4 mg/actuation spray,non-aerosol nasal spray Administer 1 spray (4 mg total) into alternating nostrils as needed for opioid reversal. 02/02/2025 Active ondansetron 4 mg disintegrating oral tablet (20 sources) Serotonin-3 Receptor Antagonist Start: 02-02-2025 take 1 tablet by mouth every eight hours as needed for nausea ondansetron ODT (ZOFRAN ODT) 4 mg disintegrating tablet Dissolve 1 tablet (4 mg total) on tongue every 8 (eight) hours as needed for nausea for up to 10 doses. 10 tablet 02/02/2025 Active Start: 10-21-2024 ondansetron OD T (ZOFRAN ODT) 4 mg disintegrating tablet Dissolve 1 tablet (4 mg total) on tongue 3 (three) times a day as needed for nausea for up to 3 doses. 3 tablet 10/21/2024 Active Start: 09-16-2024 take 1 tablet by yuan th twice daily as needed for nausea and vomiting Ondansetron 4 mg tablet,disintegrating Active 4 MG PO Twice daily as needed for nausea and vomiting September 16, 2024 1:00am Start: 08-10-2024 take 1 tablet by yuan th every eight hours as needed for nausea ondansetron ODT (ZOFRAN ODT) 4 mg disintegrating tablet Dissolve 1 tablet (4 mg total) on tongue every 8 (eight) hours as needed for nausea for up to 10 doses. 10 tablet 08/10/2024 Active Start: 02-22-2019 take 1 tablet by yuan th every eight hours as needed for nausea ondansetron ODT (ZOFRAN-ODT) 4 mg disintegrating tablet Dissolve 1 tablet (4 mg total) on tongue every 8 (eight) hours as needed for nausea for up to 10 doses. 10 tablet 02/22/2019 Active polyethylene glycol 3350 95032 mg powder for oral solution (13 sources) Osmotic Laxative Start: 07-22-2024 polyethylene glycol (GLYCOLAX) 17 gram packet Take 17 g by mouth as needed (Daily, as needed). 14 each 07/22/2024 Active polyethylene glycol 3350 556048 mg / potassium chloride 1480 mg / sodium bicarbonate 5720 mg / sodium chloride 49412 mg powder for oral solution (2 sources) Osmotic Laxative Start: 01-24-2025 End: 01-24-2025 take 420 g by mouth once polyethylene glycol-electrolytes (NULYTELY) 420 gram solution Take 4,000 mL by mouth once for 1 dose. Take as instructed 4000 mL 01/24/2025 01/24/2025 Active potassium chloride 10 meq extended release oral tablet (1 source) Start: 10-21-2024 End: 10-28-2024 potassium chloride (K-TAB,KLOR-CON) 10 MEQ CR tablet Take 1 tablet (10 mEq total) by mouth in the morning for 7 days. 7 tablet 10/21/2024 10/28/2024 Active predniSONE 10 mg oral tablet (20 sources) Start: 03-24-2025 predniSONE (DELTASONE) 10 mg tablet 3 tabs for 3 days, 2 tabs for 3 days, 1 tab for 3 days 18 tablet 03/24/2025 Active Start: 02-03-2025 End: 02-07-2025 take 2 tablets by mouth in the morning predniSONE (DELTASONE) 20 mg tablet Take 2 tablets (40 mg total) by mouth in the morning for 4 days. 8 tablet 02/03/2025 02/07/2025 Active Start: 07-16-2024 predniSONE (DE LTASONE) 10 mg tablet 40 tablet 07/16/2024 Active Start: 07-10-2024 End: 07-16-2024 predniSONE (DELTASONE) 10 mg tablet 40mg/d x 2 weeks, then taper by 5mg a week until off (35mg/d x 1wk, then 30mg x 1wk, then 25mg/d x 1wk, etc) 40 tablet 07/16/2024 07/16/2024 Discontinued risankizumab-rzaa (SKYRIZI) 60 mg/mL injection (1 source) risankizumab-rza a (SKYRIZI) 60 mg/mL injection Indications: Crohn's disease Infuse 10 mL (600 mg total) into a venous catheter every 28 days Indications: Crohn's disease. 3 induction infusions every 28 days then patient will self inject with the OBI Active sulfaSALAzine 500 mg delayed release oral tablet (6 sources) Aminosalicylate Start: 025 take 1 tablet by mouth three times daily sulfaSALAzine (AZULFIDINE) 500 mg EC tablet Take 1 tablet (500 mg total) by mouth 3 (three) times a day. 30 tablet 11/08/2024 Active Completed/Discontinued Medications Medication Drug Class(es) Dates Sig (Normalized) Sig (Original) acetaminophen 325 mg / HYDROcodone bitartrate 5 mg oral tablet (20 sources) Opioid Agonist Start: 11-14-2024 End: 03-06-2025 HYDROcodone-acetami nophen (NORCO) 5-325 mg per tablet Indications: Generalized abdominal pain , History of Crohn's disease Take 1 tablet by mouth every 6 (six) hours as needed for pain for up to 2 doses. Max Daily Amount: 4 tablets 2 tablet 02/17/2025 Suspended Start: 02-26-2024 End: 05-09-2024 take 1 tablet by mouth every six hours as needed for pain Hydrocodone-Acetaminophen 5-325 mg table t Discontinued 1 TAB PO Q6H as needed for pain 04 03February 26, 2024 May 09, 2024 11:47am amoxicillin 875 mg / clavulanate 125 mg oral tablet (5 sources) Penicillin-class Antibacterial Start: 07-10-2024 End: 07-17-2024 take 1 tablet by mouth every twelve hours amoxicillin-pot clavulanate (AUGMENTIN) 875-125 mg per tablet Take 1 tablet by mouth every 12 (twelve) hours for 7 days. 14 tablet 07/10/2024 07/17/2024 Suspended cephalexin 500 mg oral capsule (20 sources) Cephalosporin Antibacterial Start: 09-16-2024 End: 10-31-2024 take 1 capsule by mouth three times daily Cephalexin 500 mg capsule Discontinued 500 MG PO Three times daily 05 05September 16, 2024 1:00am October 31, 2024 4:57pm Start: 08-05-2024 End: 08-19-2024 CEPHalexin (KEFLEX) 500 mg c apsule Take 1 capsule (500 mg total) by mouth in the morning and 1 capsule (500 mg total) at noon and 1 capsule (500 mg total) in the evening and 1 capsule (500 mg total) before bedtime. Do all this for 14 days. 56 capsule 08/05/2024 08/19/2024 Active Start: 01-24-2024 End: 02-26-2024 take 1 capsule by mouth three times daily Cephalexin 500 mg capsule Discontinued 500 MG PO Three times daily 14 08January 24, 2024 12:00am February 26, 2024 12:48pm doxycycline hyclate 100 mg oral capsule (8 sources) Tetracycline-class Drug Start: 08-26-2024 End: 09-16-2024 take 1 capsule by mouth twice daily Doxycycline Hyclate 100 mg capsule Discontinued 100 MG PO Twice daily 28 04August 26, 2024 1:00am September 16, 2024 4:00pm Start: 08-05-2024 End: 08-05-2024 take 2 capsules by mouth in the morning, then take 2 capsules by mouth at bedtime doxycycline (VIBRAMYCIN) 50 mg capsule Take 2 capsules (100 mg total) by mouth in the morning and 2 capsules (100 mg total) before bedtime. Do all this for 14 days. 56 capsule 08/05/2024 08/05/2024 Discontinued (Alternate therapy) 12 hr loratadine 5 mg / pseudoephedrine sulfate 120 mg extended release oral tablet (8 sources) alpha-Adrenergic Agonist Start: 06-18-2024 End: 03-06-2025 take 1 tablet by mouth every twelve hours, then take 1 tablet by mouth every twelve hours Loratadine-Pseudoephedrine (Claritin-D 12 Hour) 5-120 mg tablet extended release 12 hr Discontinued 1 TAB PO Every 12 hours 28 04June 18, 2024 12:00am March 06, 2025 12:44pm risankizumab-rza a (SKYRIZI) 600 mg in sodium chloride 0.9 % (PVC) 250 mL IVPB (1 source) Start: 03-26-2025 End: 03-26-2025 600 mg, intravenous, at 260 mL/hr, Administer over 1 Hours, Once, On Mon03/26/25 at 1245, For 1 dose, Look-alike/sound-alike medication - verify indication for use. 1000 ml sodium chloride 9 mg/ml injection (1 source) Start: 03-26-2025 End: 03-26-2025 take 25 mL intravenously every hour as needed 25 mL/hr, intravenous, Continuous PRN, When mainline IV needed., Starting on Mon03/26/25 at 1237, Match IVF to base solution of product being administered to ensure compatibility. Problems Active Problems Problem Classification Problem Date Documented Da te Episodic/Chronic Anxiety disorders (5 sources) Anxiety disorder, unspecified; Translations: [ANXIETY DISORDER UNSPECIFIED] Onset: 08-20-2022 Chronic Diabetes mellitus without complication (2 sources) Increased glucose level; Translations: [Other abnormal glucose] Onset: 03-24-2025 03-24-2025 Episodic Diseases of white blood cells (2 sources) Leukocytosis; Translations: [Elevated white blood cell count, unspecified] Onset: 03-24-2025 03-24-2025 Chronic Immunizations and screening for infectious disease (11 sources) At risk of sexually transmitted infection ; Translations: [Contact with and (suspected) exposure to infections with a predominantly sexual mode of transmission] 08-26-2024 Episodic Nutritional deficiencies (10 sources) Deficiency of macronutrients; Translations: [Unspecified severe protein-calorie malnutrition] Onset: 10-09-2024 10-09-2024 Chronic Open wounds of extremities (8 sources) Laceration of palm of hand; Translations: [Laceration without foreign body of left hand, initial encounter] 09-16-2024 Episodic Other aftercare (1 source) Post-discharge follow-up 10-15-2024 Episodic Other fractures (1 source) Wedge compression fracture of unspecified thoracic vertebra, subsequent encounter for fracture with routine healing; Translations: [Wedge compression fracture of unspecified thoracic vertebra, subsequent encounter for fracture with routine healing] Onset: 02-06-2018 Episodic Other gastrointestinal disorders (4 sources) Anterior abdominal wall mass; Translations: [Right lower quadrant abdominal swelling, mass and lump] Onset: 03-05-2025 03-05-2025 Episodic Other nervous system disorders (1 source) Other chronic pain; Translations: [Other chronic pain] Onset: 11-04-2024 Chronic Other nervous system disorders (20 sources) Acute postoperative pain; Translations: [Other acute postprocedural pain] Onset: 05-21-2024 02-26-2024 Episodic Other non-traumatic joint disorders (3 sources) Pain in left knee; Translations: [Pain in left knee] Onset: 08-04-2023 Episodic Other nutritional; endocrine; and metabolic disorders (8 sources) Hypomagnesemia; Translations: [Hypomagnesemia] Onset: 11-06-2024 11-06-2024 Chronic Other nutritional; endocrine; and metabolic disorders (2 sources) Hypoalbuminemia; Translations: [Other disorders of plasma-protein metabolism, not elsewhere classified] Onset: 03-24-2025 03-24-2025 Chronic Other nutritional; endocrine; and metabolic disorders (2 sources) Decrease in appetite; Translations: [Anorexia] Onset: 03-24-2025 03-24-2025 Episodic Other upper respiratory infections (1 source) Acute upper respiratory infection 11-25-2024 Episodic Otitis media and related conditions (2 sources) Other acute nonsuppurative otitis media, bilateral; Translations: [Acute nonsuppurative otitis media, unspecified] 06-18-2024 Episodic Regional enteritis and ulcerative colitis (20 sources) Crohn's disease; Translations: [Crohn's disease, unspecified, without complications] Onset: 08-21-2024 08-26-2024 Chronic Residual codes; unclassified (1 source) Pain, unspecified; Translations: [Pain, unspecified] Onset: 03-20-2025 Episodic Screening and history of mental health and substance abuse codes (1 source) Ex-smoker 11-25-2024 Episodic Skin and subcutaneous tissue infections (1 source) Cutaneous abscess of groin; Translations: [Cellulitis and abscess of trunk] 01-24-2024 Episodic Sprains and strains (1 source) Sprain of unspecified site of left knee, initial encounter; Translations: [Sprain of unspecified site of left knee, initial encounter] Onset: 07-25-2023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 Normal >=60 [facility] Comment on above: Result Comment: eGFR not reported due to non-numeric value for Creatinine. Reported eGFR is based on the CKD-EPI 2020 equation that does not use a race coefficient. Performed By: #### K #### [facility]) [address] [place] [address] VIR Glucose [Mass/Vol] 146 mg/dL High 65-99 [facility] Comment on above: Performed By: #### K #### [address] [address] VIR Potassium [Moles/Vol] 4.1 mmol/L Normal 3.5-5.[address] [facility] Comment on above: Performed By: #### K #### [facility] ([facility]) [address] [place] [address] VIR Protein [Mass/Vol] 6.2 g/dL Normal 6.0-8.0 [facility] Comment on above: Performed By: #### K #### [facility]) [address] [place] [address] VIR Sodium [Moles/Vol] 134 mmol/L Normal 134-146 [facility] Comment on above: Performed By: #### K #### [facility] [address] [place] [address] VIR Urea nitrogen [Mass/Vol] 21 mg/dL Normal 5-23 [facility] Comment on above: Performed By: #### K #### [facility] ([facility]) [address] [place] [address] VIR MAGNESIUMon 03-23-2025 Magnesium [Mass/Vol] 1.9 mg/dL Normal 1.8-2.6 [facility] Comment on above: Performed By: #### K #### [facility] ([facility]) [address] [place] [address] VIR BEDSIDE GLUCOSEon 03-22-2025 Glucose [Mass/Vol] 136 mg/dL High 65-99 [facility] Comment on above: Performed By: #### K #### [facility]) [address] [place] [address]33 VIR Glucose [Mass/Vol] 150 mg/dL High 65-99 [facility] Comment on above: Performed By: #### K #### [facility] ([facility]) [address] [place] [address] VIR Glucose [Mass/Vol] 129 mg/dL High 65-99 [facility] Comment on above: Performed By: #### B EDG #### [facility]) [address] [place] [address] VIR Glucose [Mass/Vol] 115 mg/dL High 65-99 [facility] Comment on above: Performed By: #### B EDG #### [facility] ([facility]) [address] [place] [address] VIR CBC WITH AUTO DIFFERENTIALon 03-22-2025 BASOPHILS ABSOLUTE COUNT (10*3/UL) BY AUTOMATED COUNT 0.0 10*3/uL Normal 0.0-0.2 [facility] Comment on above: Performed By: #### C BCA #### [facility] ([facility]) [address] [place] [address] VIR BASOPHILS RELATIVE PERCENT BY AUTOMATED COUNT 0.1 % Normal [facility] Comment on above: Performed By: #### C BCA #### [place] [id number] VIR CELLAVISION DIFFERENTIAL TYPE AUTOMATED DIFFERENTIAL Normal [facility] Comment on above: Performed By: #### C BCA #### [place] [id number] VIR Eosinophils (Bld) [#/Vol] 0.0 10*3/uL Normal 0.0-0.4 [facility] Comment on above: Performed By: #### C BCA #### [place] [address] VIR EOSINOPHILS RELATIVE PERCENT BY AUTOMATED COUNT 0.0 % Normal [facility] Comment on above: Performed By: #### C BCA #### [place] [address] VIR Erythrocyte distribution width (RBC) [Ratio] 13.0 % Normal 11.5-15 [facility] Comment on above: Performed By: #### C BCA #### [place] [address] VIR Hematocrit (Bld) [Volume fraction] 35.0 % Low 39-50 [facility] Comment on above: Performed By: #### C BCA #### [place] [address] VIR Hemoglobin (Bld) [Mass/Vol] 12.1 g/dL Low 13-17 [facility] Comment on above: Performed By: #### C BCA #### [place] [id number] VIR LYMPHOCYTES ABSOLUTE COUNT (10*3/UL) BY AUTOMATED COUNT 0.7 10*3/uL Low 1.0-3.5 [facility] Comment on above: Performed By: #### C BCA #### [address] [place] [address] VIR LYMPHOCYTES RELATIVE PERCENT BY AUTOMATED COUNT 6.2 % Normal [facility] Comment on above: Performed By: #### C BCA #### [facility] ([facility]) [address] [place] [address]156 VIR MCH (RBC) [Entitic mass] 29.6 pg Normal 27-34 [facility] Comment on above: Performed By: #### C BCA #### [facility] ([facility]) [address] [place] [address]54 VIR MCHC (RBC) [Mass/Vol] 34.5 g/dL Normal 32-36 [facility] Comment on above: Performed By: #### C BCA #### [facility] ([facility]) [address] [place] [address] 13059 VIR MCV (RBC) [Entitic vol] 86 fL Normal 80-100 [facility] Comment on above: Performed By: #### C BCA #### [facility] ([facility]) [address] [place] [address] 46974 VIR MONOCYTES ABSOLUTE COUNT (10*3/UL) BY AUTOMATED COUNT 0.3 10*3/uL Normal 0.0-0.9 [facility] Comment on above: Performed By: #### C BCA #### [facility] ([facility]) [address] [place] [address]00 VIR MONOCYTES RELATIVE PERCENT BY AUTOMATED COUNT 2.7 % Normal [facility] Comment on above: Performed By: #### C BCA #### [facility] ([facility]) [address] [place] [address] 30074 VIR NEUTROPHILS ABSOLUTE COUNT BY AUTOMATED COUNT 9.8 10*3/uL High 1.5-6.6 [facility] Comment on above: Performed By: #### C BCA #### [facility] ([facility]) [address] [place] [address] 63474 VIR NEUTROPHILS RELATIVE PERCENT BY AUTOMATED COUNT 91.0 % Normal [facility] Comment on above: Performed By: #### C BCA #### [facility] ([facility]) [address] [place] [address] 66799 VIR Platelet mean volume (Bld) [Entitic vol] 6.5 fL Low 7-12 [facility] Comment on above: Performed By: #### C BCA #### [facility] ([facility]) [address] [place] [address] 23674 VIR Platelets (Bld) [#/Vol] 269 10*3/uL Normal 150-450 [facility] Comment on above: Performed By: #### C BCA #### [facility] ([facility]) [address] [place] [address] 76144 VIR RBC COUNT 4.08 X10E12/L Low 4.1-5.7 [facility] Comment on above: Performed By: #### C BCA #### [facility] ([facility]) [address] [place] [address] 40282 VIR WBC (Bld) [#/Vol] 10.7 10*3/uL Normal 4-11 [facility] Comment on above: Performed By: #### C BCA #### [facility] ([facility]) [address] [place] [address]2015 VIR COMPREHENSIVE METABOLIC PANE Jesús 03-22-2025 Albumin [Mass/Vol] 2.9 g/dL Low 3.2-5.3 [facility] Comment on above: Performed By: #### C MP #### [facility] ([facility]) [address] [place] [address] 16386 VIR ALP [Catalytic activity/Vol] 56 U/L Normal 39-130 [facility] Comment on above: Performed By: #### C MP #### [facility] ([facility]) [address] [place] [address] 89952 VIR ALT [Catalytic activity/Vol] 16 U/L Normal <=40 [facility] Comment on above: Performed By: #### C MP #### [facility] ([facility]) [address] [place] [address] 24492 VIR Anion gap [Moles/Vol] 3 mmol/L Low 5-[address] [facility] Comment on above: Performed By: #### C MP #### [address] [address] VIR AST [Catalytic activity/Vol] 21 U/L Normal <=41 [facility] Comment on above: Performed By: #### C MP #### [facility]) [address] [place] [address] VIR Bilirubin [Mass/Vol] 0.6 mg/dL Normal 0.3-1.2 [facility] Comment on above: Performed By: #### C MP #### [address] [address] VIR Calcium [Mass/Vol] 8.5 mg/dL Normal 8.5-10.5 [facility] Comment on above: Performed By: #### C MP #### [facility] ([facility]) [address] [place] [address] 27234 VIR Chloride [Moles/Vol] 110 mmol/L High 98-109 [facility] Comment on above: Performed By: #### C MP #### [facility] ([address] [address] VIR CO2 [Moles/Vol] 25 mmol/L Normal 22-32 [facility] Comment on above: Performed By: #### C MP #### [facility] ([facility]) [address] [place] [address]2013 VIR Creatinine [Mass/Vol] 0.63 mg/dL Low 0.70-1.[address] [facility] Comment on above: Result Comment: METH OD TRACEABLE TO IDMS STANDARD Performed By: #### C MP #### [facility]) [address] [place] [address]97 VIR EGFR (CKD-EPI) NON-RACE DEPENDENT >^90 Normal >=60 [facility] Comment on above: Result Comment: Repo rted eGFR is based on the CKD-EPI 2020 equation that does not use a race coefficient. Performed By: #### C MP #### [facility]) [address] [place] [address] 13528 VIR Glucose [Mass/Vol] 138 mg/dL High 65-99 [facility] Comment on above: Performed By: #### C MP #### [facility]) [address] [place] [address] 39683 VIR Potassium [Moles/Vol] 4.1 mmol/L Normal 3.5-5.[address] [facility] Comment on above: Performed By: #### C MP #### [address] [address] VIR Protein [Mass/Vol] 6.0 g/dL Normal 6.0-8.0 [facility] Comment on above: Performed By: #### C MP #### [address] [address] VIR Sodium [Moles/Vol] 138 mmol/L Normal 134-146 [facility] Comment on above: Performed By: #### C MP #### [address] [address] VIR Urea nitrogen [Mass/Vol] 16 mg/dL Normal 5-23 [facility] Comment on above: Performed By: #### C MP #### [facility]) [address] [place] [address] 43548 VIR DRUG SCREEN, URINEon 025 AMPHETAMINE/METHAMP Negative Normal Negative [facility] Comment on above: Order Comment: Confi rmation available upon request. Result Comment: AMPH /METH screening cut off = 1000 ng/mL Performed By: #### D DOWD #### [facility]) [address] [place] [address] 10496 VIR BARBITURATES Negative Normal Negative [facility] Comment on above: Order Comment: Confi rmation available upon request. Result Comment: Bekah iturates screening cut off value = 200 ng/mL Performed By: #### D DOWD #### [facility] ([facility]) [address] [place] [address] VIR BENZODIAZEPINES Negative Normal Negative [facility] Comment on above: Order Comment: Confi rmation available upon request. Result Comment: Michele odiazepines screening cut off value = 200 ng/mL Performed By: #### D DOWD #### [place] [address] VIR CANNABINOIDS Positive Abnormal Negative [facility] Comment on above: Order Comment: Confi rmation available upon request. Result Comment: Alfonso abinoids/THC screening cut off value = 50 ng/mL Performed By: #### D DOWD #### [place] [address] VIR COCAINE METABOLITE Negative Normal Negative [facility] Comment on above: Order Comment: Confi rmation available upon request. Result Comment: Coca ine screening cut off value = 300 ng/mL Performed By: #### D DOWD #### [place] [address] VIR ECSTASY Negative Normal Negative [facility] Comment on above: Order Comment: Confi rmation available upon request. Result Comment: Ecst asy screening cut off value = 500 ng/mL Performed By: #### D DOWD #### [place] [address] VIR METHADONE Negative Normal Negative [facility] Comment on above: Order Comment: Confi rmation available upon request. Result Comment: Meth adone screening cut off value = 300 ng/mL. Performed By: #### D DOWD #### [place] [id number] VIR OPIATES Positive Abnormal Negative [facility] Comment on above: Order Comment: Confi rmation available upon request. Result Comment: Opia melissa screening cut off value = 300 ng/mL This test is used for the detection of codeine, hydrocodone (>1000 ng/mL), morphine and hydromorphone (>900 ng/mL) in urine. Performed By: #### D DOWD #### [address] [address] VIR OXYCODONE Negative Normal Negative [facility] Comment on above: Order Comment: Confi rmation available upon request. Result Comment: Oxyc odone screening cut off value = 300 ng/mL This test is used for the detection of oxycodone and oxymorphone in urine. Performed By: #### D DOWD #### [address] [address] VIR PHENCYCLIDINE Negative Normal Negative [facility] Comment on above: Order Comment: Confi rmation available upon request. Result Comment: Phen cyclidine screening cut off value = 25 ng/mL Performed By: #### D DOWD #### [address] [address] VIR MAGNESIUMon 03-22-2025 Magnesium [Mass/Vol] 1.8 mg/dL Normal 1.8-2.6 [facility] Comment on above: Performed By: #### M G #### [address] [address] VIR BEDSIDE GLUCOSEon 03-21-2025 Glucose [Mass/Vol] 108 mg/dL High 65-99 [facility] Comment on above: Performed By: #### B EDG #### [address] [address] VIR Glucose [Mass/Vol] 88 mg/dL Normal 65-99 [facility] Comment on above: Performed By: #### B EDG #### [address] [address] VIR MAGNESIUMon 03-21-2025 Magnesium [Mass/Vol] 1.9 mg/dL Normal 1.8-2.6 [facility] Comment on above: Performed By: #### M G #### [facility] [address] [place] [address] VIR POCT NURSING URINE MACROSCOP IC UAon 03-21-2025 BILIRUBIN AMBROSIO Negative Normal Negative [facility] Comment on above: Performed By: #### C BCA, CMP #### [facility] ([id number]) [address] [place] [address]953 BLOOD/HGB AMBROSIO Negative Normal Negative [facility] Comment on above: Performed By: #### C BCA, CMP #### [facility] ([id number]) [address] [place] [address] 28321 GLUCOSE AMBROSIO Negative Normal Negative [facility] Comment on above: Performed By: #### C RICKI, CMP #### [facility] ([id number]) [address] [place] [address] KETONES AMBROSIO Negative Normal Negative [facility] Comment on above: Performed By: #### C BCA, CMP #### [facility] ([id number]) [address] [place] [address] 87873 LEUKOCYTE ESTERASE AMBROSIO Negative Normal Negative [facility] Comment on above: Performed By: #### C BCA, CMP #### [facility] ([id number]) [address] [place] [address] NITRITE AMBROSIO Negative Normal Negative [facility] Comment on above: Performed By: #### C BCA, CMP #### [facility] ([id number]) [address] [place] [address] [place] [address] PH AMBROSIO 6.0 Normal 5.0, 6.0, 6.5, 7.0, 7.5, 8.0, 8.5, 5.5 [facility] Comment on above: Performed By: #### C BCA, CMP #### [facility] ([id number]) [address] [place] [address]86[address] PROTEIN AMBROSIO Negative Normal Negative [facility] Comment on above: Performed By: #### C BCA, CMP #### [facility] ([id number]) [address] [place] [address] 33276 SPECIFIC GRAVITY AMBROSIO 1.010 Normal 1.010, 1.015, 1.020, 1.025 [facility] Comment on above: Performed By: #### C BCA, CMP #### [facility] ([id number]) [address] [place] [address] 16725 UROBILINOGEN AMBROSIO 0.2 E.U./dL Normal [facility] Comment on above: Performed By: #### C BCA, CMP #### [facility] ([id number]) [address] [place] [address]295 POTASSIUMon 03-21-2025 Potassium [Moles/Vol] 3.8 mmol/L Normal 3.5-5.0 [facility] Comment on above: Performed By: #### K #### [facility] ([facility]) [address] [place] [address]124 VIR C-REACTIVE PROTEINon 025 C REACTIVE PROTEIN 0.6 mg/dL Normal <=0.7 [facility] Comment on above: Performed By: #### C RP ####[facility] ([address] [address] VIR CBC WITH AUTO DIFFERENTIALon 03-20-2025 BASOPHILS ABSOLUTE COUNT (10*3/UL) BY AUTOMATED COUNT 0.1 10*3/uL Normal 0.0-0.2 [facility] Comment on above: Performed By: #### C BCA ####[facility] ([address] [address] VIR BASOPHILS RELATIVE PERCENT BY AUTOMATED COUNT 0.9 % Normal [facility] Comment on above: Performed By: #### C BCA ####[facility] ([address] [address] VIR CELLAVISION DIFFERENTIAL TYPE AUT[facility]ATED DIFFERENTIAL [facility] Comment on above: Performed By: #### C BCA ####[facility] ([address] [place] [address] VIR Eosinophils (Bld) [#/Vol] 0.0 10*3/uL Normal 0.0-0.4 [facility] Comment on above: Performed By: #### C BCA ####[facility] ([address] [place] [address] VIR EOSINOPHILS RELATIVE PERCENT BY AUTOMATED COUNT 0.5 % Normal [facility] Comment on above: Performed By: #### C BCA ####[facility] ([address] [place] [address] VIR Erythrocyte distribution width (RBC) [Ratio] 13.3 % Normal 11.5-15 [facility] Comment on above: Performed By: #### C BCA ####[facility] ([address] [place] [address] VIR Hematocrit (Bld) [Volume fraction] 39.6 % Normal 39-50 [facility] Comment on above: Performed By: #### C BCA ####[facility] ([address] [place] [address] VIR Hemoglobin (Bld) [Mass/Vol] 13.3 g/dL Normal 13-17 [facility] Comment on above: Performed By: #### C BCA ####[facility] ([address] [place] [address] VIR LYMPHOCYTES ABSOLUTE COUNT (10*3/UL) BY AUTOMATED COUNT 2.8 10*3/uL Normal 1.0-3.5 [facility] Comment on above: Performed By: #### C BCA ####[facility] ([address] [place] [address] VIR LYMPHOCYTES RELATIVE PERCENT BY AUTOMATED COUNT 36.8 % Normal [facility] Comment on above: Performed By: #### C BCA ####[facility] ([address] [address] VIR MCH (RBC) [Entitic mass] 29.0 pg Normal 27-34 [facility] Comment on above: Performed By: #### C BCA ####[facility] ([address] [address] VIR MCHC (RBC) [Mass/Vol] 33.6 g/dL Normal 32-36 [facility] Comment on above: Performed By: #### C BCA ####[facility] ([address] [address] VIR MCV (RBC) [Entitic vol] 86 fL Normal 80-100 [facility] Comment on above: Performed By: #### C BCA ####[facility] ([address] [address] VIR MONOCYTES ABSOLUTE COUNT (10*3/UL) BY AUTOMATED COUNT 0.5 10*3/uL Normal 0.0-0.9 [facility] Comment on above: Performed By: #### C BCA ####[facility] ([address] [address] VIR MONOCYTES RELATIVE PERCENT BY AUTOMATED COUNT 6.8 % Normal [facility] Comment on above: Performed By: #### C BCA ####[facility] ([address] [address] VIR NEUTROPHILS ABSOLUTE COUNT BY AUTOMATED COUNT 4.2 10*3/uL Normal 1.5-6.6 [facility] Comment on above: Performed By: #### C BCA ####[facility] ([address] [address] VIR NEUTROPHILS RELATIVE PERCENT BY AUTOMATED COUNT 55.0 % Normal [facility] Comment on above: Performed By: #### C BCA ####[facility] ([address] [place] [address] VIR Platelet mean volume (Bld) [Entitic vol] 6.9 fL Low 7-12 [facility] Comment on above: Performed By: #### C BCA ####[facility] ([address] [place] [address] VIR Platelets (Bld) [#/Vol] 324 10*3/uL Normal 150-450 [facility] Comment on above: Performed By: #### C BCA ####[facility] ([address] [place] [address] VIR RBC COUNT 4.60 X10E12/L Normal 4.1-5.7 [facility] Comment on above: Performed By: #### C BCA ####[facility] ([address] [place] [address] VIR WBC (Bld) [#/Vol] 7.7 10*3/uL Normal 4-11 [facility] Comment on above: Performed By: #### C BCA ####[facility] ([address] [place] [address] VIR COMPREHENSIVE METABOLIC PANE Jesús 03-20-2025 Albumin [Mass/Vol] 3.9 g/dL Normal 3.2-5.3 [facility] Comment on above: Performed By: #### C MP ####[facility] ([address] [place] [address] VIR ALP [Catalytic activity/Vol] 73 U/L Normal 39-130 [facility] Comment on above: Performed By: #### C MP ####[facility] ([address] [place] [address] VIR ALT [Catalytic activity/Vol] 16 U/L Normal <=40 [facility] Comment on above: Performed By: #### C MP ####[facility] ([address] [place] [address] VIR Anion gap [Moles/Vol] 5 mmol/L Normal 5-15 [facility] Comment on above: Performed By: #### C MP ####[facility] ([address] [place] [address] VIR AST [Catalytic activity/Vol] 21 U/L Normal <=41 [facility] Comment on above: Performed By: #### C MP ####[facility] ([address] [place] [address] VIR Bilirubin [Mass/Vol] 0.3 mg/dL Normal 0.3-1.2 [facility] Comment on above: Performed By: #### C MP ####[facility] ([address] [place] [address] VIR Calcium [Mass/Vol] 9.3 mg/dL Normal 8.5-10.5 [facility] Comment on above: Performed By: #### C MP ####[facility] ([address] [place] [address] VIR Chloride [Moles/Vol] 105 mmol/L Normal 98-109 [facility] Comment on above: Performed By: #### C MP ####[facility] ([address] [place] [address] VIR CO2 [Moles/Vol] 27 mmol/L Normal 22-32 [facility] Comment on above: Performed By: #### C MP ####[facility] ([address] [place] [address] VIR Creatinine [Mass/Vol] 0.62 mg/dL Low 0.70-1.20 [facility] Comment on above: Result Comment: METH OD TRACEABLE TO IDMS STANDARD Performed By: #### C MP ####[facility] ([address] [place] [address] VIR EGFR (CKD-EPI) NON-RACE DEPENDENT >^90 Normal >=60 [facility] Comment on above: Result Comment: eGFR not reported due to non-numeric value for Creatinine. Reported eGFR is based on the CKD-EPI 2020 equation that does not use a race coefficient. Performed By: #### C MP ####[facility] ([address] [place] [address] VIR Glucose [Mass/Vol] 121 mg/dL High 65-99 [facility] Comment on above: Performed By: #### C MP ####[facility] ([address] [place] [address] VIR Potassium [Moles/Vol] 3.0 mmol/L Low 3.5-5.0 [facility] Comment on above: Performed By: #### C MP ####[facility] ([address] [place] [address] VIR Protein [Mass/Vol] 7.7 g/dL Normal 6.0-8.0 [facility] Comment on above: Performed By: #### C MP ####[facility] ([address] [place] [address] VIR Sodium [Moles/Vol] 137 mmol/L Normal 134-146 [facility] Comment on above: Performed By: #### C MP ####[facility] ([address] [place] [address] VIR Urea nitrogen [Mass/Vol] 22 mg/dL Normal 5-23 [facility] Comment on above: Performed By: #### C MP ####[facility] ([address] [place] [address] ABDOMEN AND PELVIS W CONT on 03-20-2025 CT ABDOMEN AND PELVIS W CONT CT ABDOMEN AND PELVIS W CONT History: diffuse abd pain, hx of crohns [...] King Nam MD on 03/20/2025 10:20 PM Normal [facility] ERYTHROCYTE SEDIMENTATION RA TE (ESR)on 03-20-2025 ESR, ERYTHROCYTE SEDIMENTATION RATE 31 mm/h High 0-15 [facility] Comment on above: Performed By: #### C BCA, CMP #### [facility] ([id number]) [address] [place] [address], [place] [address] LACTATE W/ REFLEXon 03-20-20 25 LACTATE W/REFLEX 1.2 mmol/L Normal 0.4-2.0 [facility] Comment on above: Order Comment: Resul t did not trigger repeat Lactate,re-order if needed. Performed By: #### L ACTS ####[facility] ([facility])[address] [place] [address] [place] [address] VIR LIPASEon 03-20-2025 Lipase [Catalytic activity/Vol] 38 U/L Normal 17-40 [facility] Comment on above: Performed By: #### L IPA ####[facility] ([facility])[address] [place] [address] [place] [address] VIR MAGNESIUMon 03-20-2025 Magnesium [Mass/Vol] 1.7 mg/dL Low 1.8-2.6 [facility] Comment on above: Performed By: #### M G ####[facility] ([facility])[address] [place] [address] VIR Jesús 03-19-2025 L --- Specimen: [id number] Received: 03/20/25 Status: ROSIE Gómez Num: [id number] Spec Type: Surgical Subm Dr: Brooklyn Taylor MD Tissues: A Soft Tissue Mass - Simple Excision (except lipoma) (RIGHT LOWER ABDOMINAL MA B Soft Tissue Mass - Simple Excision (except lipoma) (LEFT LOWER ABDOMINAL MAS Procedures: HE/2, Gross/Micro L5/2 Age/ Patient Sex Location Account Attending Physician William Hernandez 29/M GHASSAN [id number] Brooklyn Taylor MD SPEC NUM: [id number] RECD: 03/20/25 STATUS: ROSIE GÓMEZ NUM: [id number] SHERWIN: 03/19/25 [facility] DR: Brooklyn Taylor MD ENTERED: 03/20/[address] [facility] [address]: [facility] SPEC TYPE: Surgical DEPT: S ENTERED BY: [id number] RECV BY: [id number] ORDERED: HE/2, Gross/Micro L5/2 ORDERED: HE/2, Gross/Micro L5/2 Pathological Diagnosis A. Right lower abdominal mass, excision: - Benign fibroadipose tissue consistent with lipoma. B. Left lower abdominal mass, excision: - Benign fibroadipose tissue consistent with lipoma. Clinical Information Abdominal wall masses of right lower and left lower quadrants Gross Description Part A is received in formalin labeled with the patients name, date of , and right lower abdominal mass is an ovoid portion of adipose tissue, 1.2 x 0.8 x 0.6 cm. The specimen is inked black and sectioned to reveal yellow-moreau, glistening, uniform cut surfaces. The specimen is entirely submitted in a single cassette. (1, ns, [id number] A) J Part B is received in formalin labeled with the patients name, date of , and left lower abdominal mass is an ovoid portion of adipose tissue, 1 x 0.8 x 0.6 cm. The specimen is inked black and sectioned to reveal sanchez-pink to yellow-moreau, glistening, uniform cut surfaces. The specimen is entirely submitted in a single cassette. (1, ns, [id number] B) JG Specimen: [id number] Received: 03/20/25 Status: ROSIE Gómez Num: [id number] Spec Type: Surgical Subm Dr: Brooklyn Taylor MD Tissues: A Soft Tissue Mass - Simple Excision (except lipoma) (RIGHT LOWER ABDOMINAL MA B Soft Tissue Mass - Simple Excision (except lipoma) (LEFT LOWER ABDOMINAL MAS Procedures: HE/2, Gross/Micro L5/2 Patient: KristopherWilliam Andre [id number] (Continued) Specimen: [id number] Received: 03/20/25 (Continued) Signed (signature on file) James Koo MD 03/21/25917 Specimen: [id number] Received: 03/20/25 Status: ROSIE Gómez Num: [id number] Spec Type: Surgical Subm Dr: Brooklyn Taylor MD Tissues: A Soft Tissue Mass - Simple Excision (except lipoma) (RIGHT LOWER ABDOMINAL MA B Soft Tissue Mass - Simple Excision (except lipoma) (LEFT LOWER ABDOMINAL MAS Procedures: HE/2, Gross/Micro L5/2 Patient: William Hernandez [id number] (Continued) Specimen: [id number] Received: 03/20/25 (Continued) Microscopic Description A B: Microscopic examination is performed. CPT Codes 43892 x2 Specimen: [id number] Received: 03/20/25 Status: ROSIE Gómez Num: [id number] Spec Type: Surgical Subm Dr: Brooklyn Taylor MD Tissues: A Soft Tissue Mass - Simple Excision (except lipoma) (RIGHT LOWER ABDOMINAL MA B Soft Tissue Mass - Simple Excision (except lipoma) (LEFT LOWER ABDOMINAL MAS Procedures: HE/2, Gross/Micro L5/2 Patient: William Hernandez Andre [id number] (Continued) Signed (signature on file) James Koo MD 03/21/25 0918 Normal [facility] CBC WITH AUTO DIFFERENTIALon 03-09-2025 BASOPHILS ABSOLUTE COUNT (10*3/UL) BY AUTOMATED COUNT 0.0 10*3/uL Normal 0.0-0.2 [facility] Comment on above: Performed By: #### C JACKSON ROBISON, 89743-5 #### [facility] ([id number]) [address] [place] [address] BASOPHILS RELATIVE PERCENT BY AUTOMATED COUNT 0.6 % Normal [facility] Comment on above: Performed By: #### C JACKSON ROBISON, 51268-7 #### [facility] ([id number]) [address] [place], [place] [address] CELLAVISION DIFFERENTIAL TYPE AUTOMATED DIFFERENTIAL Normal [facility] Comment on above: Performed By: #### C JACKSON ROBISON, 69973-4 #### [facility] ([id number]) [address] [place] [address] Eosinophils (Bld) [#/Vol] 0.1 10*3/uL Normal 0.0-0.4 [facility] Comment on above: Performed By: #### C RICKI [facility], 49063-1 #### [facility] ([id number]) [address] [place] [address] EOSINOPHILS RELATIVE PERCENT BY AUTOMATED COUNT 0.9 % Normal [facility] Comment on above: Performed By: #### Alvarez ROBISON [facility], #### [facility] ([id number]) [address] [place] [address] Erythrocyte distribution width (RBC) [Ratio] 13.3 % Normal 11.5-15 [facility] Comment on above: Performed By: #### Alvarez ROBISON [facility], #### [facility] ([id number]) [address] [place] [address] Hematocrit (Bld) [Volume fraction] 37.2 % Low 39-50 [facility] Comment on above: Performed By: #### Alvarez ROBISON [facility], #### [facility] ([id number]) [address] [place] [address] Hemoglobin (Bld) [Mass/Vol] 12.5 g/dL Low 13-17 [facility] Comment on above: Performed By: #### Alvarez ROBISON [facility], #### [facility] ([id number]) [address] [place] [address] LYMPHOCYTES ABSOLUTE COUNT (10*3/UL) BY AUTOMATED COUNT 1.5 10*3/uL Normal 1.0-3.5 [facility] Comment on above: Performed By: #### Alvarez ROBISON [facility], #### [facility] ([id number]) [address] [place] [address] LYMPHOCYTES RELATIVE PERCENT BY AUTOMATED COUNT 25.9 % Normal [facility] Comment on above: Performed By: #### C JACKSON ROBISON, #### [facility] ([id number]) [address] [place] [address] MCH (RBC) [Entitic mass] 29.4 pg Normal 27-34 [facility] Comment on above: Performed By: #### Alvarez ROBISON CMP, #### [facility] ([id number]) [address] [place] [address] MCHC (RBC) [Mass/Vol] 33.6 g/dL Normal 32-36 [facility] Comment on above: Performed By: #### Alvarez ROBISON CMP, #### [facility] ([id number]) [address] [place] [address] MCV (RBC) [Entitic vol] 88 fL Normal 80-100 [facility] Comment on above: Performed By: #### Alvarez ROBISON CMP, 05947-0 #### [facility] ([id number]) [address] [place] [address] MONOCYTES ABSOLUTE COUNT (10*3/UL) BY AUTOMATED COUNT 0.5 10*3/uL Normal 0.0-0.9 [facility] Comment on above: Performed By: #### Alvarez ROBISON CMP, #### [facility] ([id number]) [address] [place] [address] MONOCYTES RELATIVE PERCENT BY AUTOMATED COUNT 8.4 % Normal [facility] Comment on above: Performed By: #### Alvarez ROBISON CMP, 23705-2 #### [facility] ([id number]) [address] [place] [address] NEUTROPHILS ABSOLUTE COUNT BY AUTOMATED COUNT 3.8 10*3/uL Normal 1.5-6.6 [facility] Comment on above: Performed By: #### C RICKI, CMP, 90286-8 #### [facility] ([id number]) [address] [place] [address] NEUTROPHILS RELATIVE PERCENT BY AUTOMATED COUNT 64.2 % Normal [facility] Comment on above: Performed By: #### C BCA, CMP, 16489-2 #### [facility] ([id number]) [address] [place] [address] Platelet mean volume (Bld) [Entitic vol] 6.6 fL Low 7-12 [facility] Comment on above: Performed By: #### C RICKI, CMP, 25121-7 #### [facility] ([id number]) [address] [place] [address] Platelets (Bld) [#/Vol] 269 10*3/uL Normal 150-450 [facility] Comment on above: Performed By: #### C BCA, CMP, 83055-0 #### [facility] ([id number]) [address] [place] [address] RBC COUNT 4.24 X10E12/L Normal 4.1-5.7 [facility] Comment on above: Performed By: #### C BCA, CMP, 85294-7 #### [facility] ([id number]) [address] [place] [address] WBC (Bld) [#/Vol] 5.9 10*3/uL Normal 4-11 [facility] Comment on above: Performed By: #### C BCA, CMP, 33792-4 #### [facility] ([id number]) [address] [place] [address] COMPREHENSIVE METABOLIC PANE [facility] 03-09-2025 Albumin [Mass/Vol] 3.6 g/dL Normal 3.2-5.3 [facility] Comment on above: Performed By: #### C MP ####[facility] ([facility])[address] [place] [address] VIR ALP [Catalytic activity/Vol] 76 U/L Normal 39-130 [facility] Comment on above: Performed By: #### C MP ####[facility] ([facility])[address] [place] [address] VIR ALT [Catalytic activity/Vol] 15 U/L Normal <=40 [facility] Comment on above: Performed By: #### C MP ####[facility] ([facility] [place] [address] VIR Anion gap [Moles/Vol] 5 mmol/L Normal 5-15 [facility] Comment on above: Performed By: #### C MP ####[facility] ([place] [address] [place] [address] VIR AST [Catalytic activity/Vol] 19 U/L Normal <=41 [facility] Comment on above: Performed By: #### C MP ####[facility] ([facility] [place] [address] VIR Bilirubin [Mass/Vol] 0.6 mg/dL Normal 0.3-1.2 [facility] Comment on above: Performed By: #### C MP ####[facility] ([place] [address] [place] [address] VIR Calcium [Mass/Vol] 9.1 mg/dL Normal 8.5-10.5 [facility] Comment on above: Performed By: #### C MP ####[facility] ([place] [address] [place] [address] VIR Chloride [Moles/Vol] 104 mmol/L Normal 98-109 [facility] Comment on above: Performed By: #### C MP ####[facility] ([facility] [place] [address] VIR CO2 [Moles/Vol] 27 mmol/L Normal 22-32 [facility] Comment on above: Performed By: #### C MP ####[facility] ([address] [place] [address] VIR Creatinine [Mass/Vol] 0.71 mg/dL Normal 0.70-1.20 [facility] Comment on above: Result Comment: METH OD TRACEABLE TO IDMS STANDARD Performed By: #### C MP ####[facility] ([address] [address] VIR EGFR (CKD-EPI) NON-RACE DEPENDENT >^90 Normal >=60 [facility] Comment on above: Result Comment: eGFR not reported due to non-numeric value for Creatinine. Reported eGFR is based on the CKD-EPI 1 equation that does not use a race coefficient. Performed By: #### C MP ####[facility] ([address] [address] VIR Glucose [Mass/Vol] 95 mg/dL Normal 65-99 [facility] Comment on above: Performed By: #### C MP ####[facility] ([address] [address] VIR Potassium [Moles/Vol] 3.4 mmol/L Low 3.5-5.0 [facility] Comment on above: Performed By: #### C MP ####[facility] ([address] [address] VIR Protein [Mass/Vol] 6.9 g/dL Normal 6.0-8.0 [facility] Comment on above: Performed By: #### C MP ####[facility] ([address] [address] VIR Sodium [Moles/Vol] 136 mmol/L Normal 134-146 [facility] Comment on above: Performed By: #### C MP ####[facility])[address] [place] [address].[place] [address] VIR Urea nitrogen [Mass/Vol] 21 mg/dL Normal 5-23 [facility] Comment on above: Performed By: #### C MP ####[facility] ([facility])[address] [place] [address].[place] [address] VIR LACTATE W/ REFLEXon 03-09-20 25 LACTATE W/REFLEX 1.4 mmol/L Normal 0.4-2.0 [facility] Comment on above: Order Comment: Resul t did not trigger repeat Lactate,re-order if needed. Performed By: #### L ACTS ####[facility] ([address] [address] VIR LIPASEon 03-09-2025 Lipase [Catalytic activity/Vol] 37 U/L Normal 17-40 [facility] Comment on above: Performed By: #### L IPA ####[facility] ([facility])[address] [place] [address] VIR XR ABDOMEN COMP DECUB ERECTo n 03-09-2025 XR ABDOMEN COMP DECUB ERECT XR ABDOMEN COMP DECUB ERECT XR ABDOMEN COMP DECUB ERECT Clinical history:Rule out obstruction abdominal pain Comparison: `10/21/2024. Findings: Nonspecific nonobstructive bowel gas pattern. Scattered gas filled nondistended bowel. Mild to moderate amount of stool in the colon. Impression: Nonobstructive, nonspecific bowel gas pattern. Finalized by Tahmina Harvey MD on 03/09/2025 3:43 PM Normal [facility] CBC WITH AUTO DIFFERENTIALon 02-17-2025 BASOPHILS ABSOLUTE COUNT (10*3/UL) BY AUTOMATED COUNT 0.1 10*3/uL Normal [facility] Comment on above: Performed By: #### C BCA, CMP, 85826-2 #### [facility] ([id number]) [address] [place] [address], [place] [address] BASOPHILS RELATIVE PERCENT BY AUTOMATED COUNT 0.9 % Normal [facility] Comment on above: Performed By: #### C RICKI CMP, #### [facility] ([id number]) [address] [place] [address] CELLAVISION DIFFERENTIAL TYPE AUTOMATED DIFFERENTIAL Normal [facility] Comment on above: Performed By: #### C RICKI, CMP, #### [facility] ([id number]) [address] [place] [address] Eosinophils (Bld) [#/Vol] 0.1 10*3/uL Normal [facility] Comment on above: Performed By: #### C RICKI CMP, #### [facility] ([id number]) [address] [place] [address] EOSINOPHILS RELATIVE PERCENT BY AUTOMATED COUNT 0.9 % Normal [facility] Comment on above: Performed By: #### Alvarez ROBISON CMP, #### [facility] ([id number]) [address] [place] [address] Erythrocyte distribution width (RBC) [Ratio] 13.5 % Normal 11.5-15 [facility] Comment on above: Performed By: #### C RICKI, CMP, #### [facility] ([id number]) [address] [place] [address] Hematocrit (Bld) [Volume fraction] 36.4 % Low 39-50 [facility] Comment on above: Performed By: #### C RICKI, CMP, #### [facility] ([id number]) [address] [place] [address] Hemoglobin (Bld) [Mass/Vol] 12.4 g/dL Low 13-17 [facility] Comment on above: Performed By: #### C RICKI, CMP, #### [facility] ([id number]) [address] [place] [address] LYMPHOCYTES ABSOLUTE COUNT (10*3/UL) BY AUTOMATED COUNT 2.0 10*3/uL Normal [facility] Comment on above: Performed By: #### C JACKSON ROBISON, #### [facility] ([id number]) [address] [place] [address] LYMPHOCYTES RELATIVE PERCENT BY AUTOMATED COUNT 23.8 % Normal [facility] Comment on above: Performed By: #### C RICKI [facility], #### [facility] ([id number]) [address] [place] [address] MCH (RBC) [Entitic mass] 29.7 pg Normal 27-34 [facility] Comment on above: Performed By: #### C JACKSON ROBISON, #### [facility] ([id number]) [address] [place] [address] [id number] MCHC (RBC) [Mass/Vol] 34.0 g/dL Normal 32-36 [facility] Comment on above: Performed By: #### C RICKI [facility], #### [facility] ([id number]) [address] [place] [address] [id number] MCV (RBC) [Entitic vol] 87 fL Normal 80-100 [facility] Comment on above: Performed By: #### C JACKSON ROBISON, #### [facility] ([id number]) [address] [place] [address] [id number] MONOCYTES ABSOLUTE COUNT (10*3/UL) BY AUTOMATED COUNT 0.8 10*3/uL [facility] Comment on above: Performed By: #### C JACKSON ROBISON, #### [facility] ([id number]) [address] [place] [address] [id number] MONOCYTES RELATIVE PERCENT BY AUTOMATED COUNT 9.1 % Normal [facility] Comment on above: Performed By: #### C BCA, CMP, [id number] #### [facility] ([id number]) [address] [place] [address] [id number] NEUTROPHILS ABSOLUTE COUNT BY AUTOMATED COUNT 5.6 10*3/uL [facility] Comment on above: Performed By: #### C BCA, CMP, 96494-5 #### [facility] ([id number]) [address] [place] [address] 71020 NEUTROPHILS RELATIVE PERCENT BY AUTOMATED COUNT 65.3 % Normal [facility] Comment on above: Performed By: #### C BCA, CMP, #### [facility] ([id number]) [address] [place] [address] 20443 Platelet mean volume (Bld) [Entitic vol] 6.7 fL Low 7-12 [facility] Comment on above: Performed By: #### Alvarez BCA, CMP, #### [facility] ([id number]) [address] [place] [address] 66003 Platelets (Bld) [#/Vol] 333 10*3/uL Normal 150-450 [facility] Comment on above: Performed By: #### Alvarez BCA, CMP, #### [facility] ([id number]) [address] [place] [address] 29057 RBC COUNT 4.17 X10E12/L Normal 4.1-5.7 [facility] Comment on above: Performed By: #### C BCA, CMP, 34370-2 #### [facility] ([id number]) [address] [place] [address] 60418 WBC (Bld) [#/Vol] 8.5 10*3/uL Normal 4-11 [facility] Comment on above: Performed By: #### C BCA, CMP, #### [facility] ([id number]) [address] [place] [address] 25436 COMPREHENSIVE METABOLIC PANE Jesús 02-17-2025 Albumin [Mass/Vol] 3.9 g/dL Normal 3.2-5.3 [facility] Comment on above: Performed By: #### C BCA, CMP, 92932-5 #### [facility] ([id number]) [address] [place] [address] 79542 ALP [Catalytic activity/Vol] 78 U/L Normal 39-130 [facility] Comment on above: Performed By: #### C BCA, CMP, 44445-8 #### [facility] ([id number]) [address] [place] [address] 56380 ALT [Catalytic activity/Vol] 13 U/L Normal <=40 [facility] Comment on above: Performed By: #### C BCA, CMP, #### [facility] ([id number]) [address] [place] [address] 77949 Anion gap [Moles/Vol] 6 mmol/L Normal 5-15 [facility] Comment on above: Performed By: #### C BCA, CMP, 80569-5 #### [facility] ([id number]) [address] [place] [address] 37216 AST [Catalytic activity/Vol] 19 U/L Normal <=41 [facility] Comment on above: Performed By: #### C BCA, CMP, 88337-9 #### [facility] ([id number]) [address] [place] [address] 06559 Bilirubin [Mass/Vol] 0.4 mg/dL Normal 0.3-1.2 [facility] Comment on above: Performed By: #### C BCA, CMP, 15819-8 #### [facility] ([id number]) [address] [place] [address] 43599 Calcium [Mass/Vol] 9.4 mg/dL Normal 8.5-10.5 [facility] Comment on above: Performed By: #### C RICKI [facility], 10876-1 #### [facility] ([id number]) [address] [place] [address] 74049 Chloride [Moles/Vol] 105 mmol/L Normal 98-109 [facility] Comment on above: Performed By: #### C RICKI [facility], 93992-0 #### [facility] ([id number]) [address] [place] [address] 24735 CO2 [Moles/Vol] 27 mmol/L Normal 22-32 [facility] Comment on above: Performed By: #### C RICKI [facility], 39921-7 #### [facility] ([id number]) [address] [place] [address] 07249 Creatinine [Mass/Vol] 0.68 mg/dL Low 0.70-1.20 [facility] Comment on above: Result Comment: METH OD TRACEABLE TO IDMS STANDARD Performed By: #### C RICKI [facility], 63741-2 #### [facility] ([id number]) [address] [place] [address] 40416 EGFR (CKD-EPI) NON-RACE DEPENDENT >^90 Normal >=60 [facility] Comment on above: Result Comment: eGFR not reported due to non-numeric value for Creatinine. Reported eGFR is based on the CKD-EPI 2021 equation that does not use a race coefficient. Performed By: #### C JACKSON ROBISON, 43187-4 #### [facility] ([id number]) [address] [place] [address] 45994 Glucose [Mass/Vol] 109 mg/dL High 65-99 [facility] Comment on above: Performed By: #### C JACKSON ROBISON, 85308-3 #### [facility] ([id number]) [address] [place] [address] 87020 Potassium [Moles/Vol] 3.2 mmol/L Low 3.5-5.0 [facility] Comment on above: Performed By: #### C JACKSON ROBISON, 41331-0 #### [facility] ([id number]) [address] [place] [address] 35455 Protein [Mass/Vol] 7.5 g/dL Normal 6.0-8.0 [facility] Comment on above: Performed By: #### C JACKSON ROBISON, 74439-8 #### [facility] ([id number]) [address] [place] [address] 66478 Sodium [Moles/Vol] 138 mmol/L Normal 134-146 [facility] Comment on above: Performed By: #### Alvarez ROBISON CMP, 24594-6 #### [facility] ([id number]) [address] [place] [address] 61804 Urea nitrogen [Mass/Vol] 17 mg/dL Normal 5-23 [facility] Comment on above: Performed By: #### C JACKSON ROBISON, 77692-4 #### [facility] ([id number]) [address] [place] [address] 33566 LIPASEon 02-17-2025 Lipase [Catalytic activity/Vol] 69 U/L High 17-40 [facility] Comment on above: Performed By: #### Alvarez ROBISON CMP, 12732-9 #### [facility] ([id number]) [address] [place] [address] 52894 CBC AND AUTO DIFFon 20-20 25 ABSOLUTE BASOPHIL 0.1 X10E9/L Normal 0.0-0.2 [facility] Comment on above: Performed By: #### C JACKSON ROBISON, 74001-0 #### [facility] ([id number]) [address] [place] [address] 44436 ABSOLUTE NEUTROPHIL 3.5 X10E9/L Normal 1.5-6.6 [facility] Comment on above: Performed By: #### C RICKI, CMP, #### [facility] ([id number]) [address] [place] [address] 28498 Basophils/100 WBC (Bld) 0.8 % Normal [facility] Comment on above: Performed By: #### C BCA, CMP, #### [facility] ([id number]) [address] [place] [address] 74097 Eosinophils (Bld) [#/Vol] 0.1 10*3/uL Normal 0.0-0.4 [facility] Comment on above: Performed By: #### C RICKI, CMP, #### [facility] ([id number]) [address] [place] [address] 37984 Eosinophils/100 WBC (Bld) 1.6 % Normal [facility] Comment on above: Performed By: #### C BCA, [facility], #### [facility] ([id number]) [address] [place] [address] 46157 Erythrocyte distribution width (RBC) [Ratio] 13.8 % Normal 11.5-15.0 [facility] Comment on above: Performed By: #### C RICKI, CMP, #### [facility] ([id number]) [address] [place] [address] 47836 Hematocrit (Bld) [Volume fraction] 36.4 % Low 39-49 [facility] Comment on above: Performed By: #### C BCA, CMP, #### [facility] ([id number]) [address] [place] [address] 68504 Hemoglobin (Bld) [Mass/Vol] 12.4 g/dL Low 13.0-17.0 [facility] Comment on above: Performed By: #### C BCA, CMP, #### [facility] ([id number]) [address] [place] [address] 05981 Lymphocytes (Bld) [#/Vol] 2.2 10*3/uL Normal 1.0-3.5 [facility] Comment on above: Performed By: #### C JACKSON ROBISON, 42761-5 #### [facility] ([id number]) [address] [place] [address] 43671 Lymphocytes/100 WBC (Bld) 34.9 % Normal [facility] Comment on above: Performed By: #### Alvarez ROBISON CMP, #### [facility] ([id number]) [address] [place] [address] 12735 MCH (RBC) [Entitic mass] 29.8 pg Normal 27-34 [facility] Comment on above: Performed By: #### Alvarez ROBISON CMP, #### [facility] ([id number]) [address] [place] [address] 83768 MCHC (RBC) [Mass/Vol] 34.0 g/dL Normal 32-36 [facility] Comment on above: Performed By: #### Alvarez ROBISON CMP, #### [facility] ([id number]) [address] [place] [address] 47042 MCV (RBC) [Entitic vol] 88 fL Normal 80-100 [facility] Comment on above: Performed By: #### Alvarez RBOISON, CMP, #### [facility] ([id number]) [address] [place] [address] 27177 Monocytes (Bld) [#/Vol] 0.6 10*3/uL Normal 0-0.9 [facility] Comment on above: Performed By: #### Alvarez ROBISON, CMP, #### [facility] ([id number]) [address] [place] [address] 56397 Monocytes/100 WBC (Bld) 8.7 % Normal [facility] Comment on above: Performed By: #### Alvarez ROBISON CMP, 58990-1 #### [facility] ([id number]) [address] [place] [address] 09296 Neutrophils/100 WBC (Bld) 54.0 % Normal [facility] Comment on above: Performed By: #### Alvarez ROBISON CMP, 51653-0 #### [facility] ([id number]) [address] [place] [address] 91578 Platelet mean volume (Bld) [Entitic vol] 6.5 fL Low 7-12 [facility] Comment on above: Performed By: #### Alvarez ROBISON CMP, 47652-5 #### [facility] ([id number]) [address] [place] [address] 42337 Platelets (Bld) [#/Vol] 288 10*3/uL Normal 150-450 [facility] Comment on above: Performed By: #### Alvarez ROBISON CMP, 65695-0 #### [facility] ([id number]) [address] [place] [address] 11611 RBC COUNT 4.14 X10E12/L Normal 4.10-5.70 [facility] Comment on above: Performed By: #### Alvarez ROBISON CMP, 51044-7 #### [facility] ([id number]) [address] [place] [address] 21560 WBC (Bld) [#/Vol] 6.4 10*3/uL Normal 4.0-11.0 [facility] Comment on above: Performed By: #### Alvarez ROBISON CMP, 54526-8 #### [facility] ([id number]) [address] [place] [address] 08079 COMPREHENSIVE METABOLIC PANE Jesús 02-02-2025 Albumin [Mass/Vol] 3.7 g/dL Normal 3.2-5.3 [facility] Comment on above: Performed By: #### C BCA, CMP, #### [facility] ([id number]) [address] [place] [address] 72996 ALP [Catalytic activity/Vol] 79 U/L Normal 39-130 [facility] Comment on above: Performed By: #### C BCA, CMP, #### [facility] ([id number]) [address] [place] [address] 53386 ALT [Catalytic activity/Vol] 14 U/L Normal 0-40 [facility] Comment on above: Performed By: #### C BCA, CMP, #### [facility] ([id number]) [address] [place] [address] 71779 Anion gap [Moles/Vol] 7 mmol/L Normal 5-15 [facility] Comment on above: Performed By: #### C BCA, CMP, #### [facility] ([id number]) [address] [place] [address] 04143 AST [Catalytic activity/Vol] 18 U/L Normal 0-41 [facility] Comment on above: Performed By: #### C BCA, CMP, #### [facility] ([id number]) [address] [place] [address] 13663 Bilirubin [Mass/Vol] 0.4 mg/dL Normal 0.3-1.2 [facility] Comment on above: Performed By: #### C BCA, CMP, #### [facility] ([id number]) [address] [place] [address] 40704 Calcium [Mass/Vol] 9.3 mg/dL Normal 8.5-10.5 [facility] Comment on above: Performed By: #### C BCA, CMP, #### [facility] ([id number]) [address] [place] [address] 71427 Chloride [Moles/Vol] 102 mmol/L Normal 98-109 [facility] Comment on above: Performed By: #### C JACKSON ROBISON, 45348-2 #### [facility] ([id number]) [address] [place] [address] 10884 CO2 [Moles/Vol] 30 mmol/L Normal 22-32 [facility] Comment on above: Performed By: #### C JACKSON ROBISON, 32411-0 #### [facility] ([id number]) [address] [place] [address] 22435 Creatinine [Mass/Vol] 0.88 mg/dL Normal 0.70-1.20 [facility] Comment on above: Result Comment: METH OD TRACEABLE TO IDMS STANDARD Performed By: #### C JACKSON ROBISON, 79220-5 #### [facility] ([id number]) [address] [place] [address] 84207 eGFR (CKD-EPI) NON-RACE DEPENDENT >90 Normal >59 [facility] Comment on above: Result Comment: Reported eGFR is based on the CKD-EPI 2020 equation that does not use a race coefficient. Performed By: #### C JACKSON ROBISON, 23547-7 #### [facility] ([id number]) [address] [place] [address] 91161 Glucose [Mass/Vol] 118 mg/dL High 65-99 [facility] Comment on above: Performed By: #### C JACKSON ROBISON, 63972-3 #### [facility] ([id number]) [address] [place] [address] 36840 Potassium [Moles/Vol] 3.8 mmol/L Normal 3.5-5.0 [facility] Comment on above: Performed By: #### C JACKSON ROBISON, #### [facility] ([id number]) [address] [place] [address] 54960 Protein [Mass/Vol] 7.1 g/dL Normal 6.0-8.0 [facility] Comment on above: Performed By: #### C RICKI CMP, 84101-9 #### [facility] ([id number]) [address] [place] [address] 21362 Sodium [Moles/Vol] 139 mmol/L Normal 134-146 [facility] Comment on above: Performed By: #### C JACKSON ROBISON, 57655-4 #### [facility] ([id number]) [address] [place] [address] 61791 Urea nitrogen [Mass/Vol] 19 mg/dL Normal 5-23 [facility] Comment on above: Performed By: #### Alvarez ROBISON CMP, 56221-0 #### [facility] ([id number]) [address] [place] [address] 74550 CRP [Mass/Vol]on 02-02-2025 C REACTIVE PROTEIN 0.6 mg/dL Normal 0.000-0.744 [facility] Comment on above: Performed By: #### Alvarez ROBISON CMP, 08842-2 #### [facility] ([id number]) [address] [place] [address] 95241 LIPASEon 02-02-2025 Lipase [Catalytic activity/Vol] 38 U/L Normal 17-40 [facility] Comment on above: Performed By: #### C RICKI CMP, 36447-4 #### [facility] ([id number]) [address] [place] [address] 17494 Lactate (P isaias) [Moles/Vol]o n 02-02-2025 LACTATE W/REFLEX 1.4 mmol/L Normal 0.4-2.0 [facility] Comment on above: Result Comment: Result did not trigger repeat Lactate, re-order if needed. Performed By: #### C BCA, CMP, #### [facility] ([id number]) [address] [place] [address] 43310 URN MACROSCOPIC NURon 2024 BILIRUBIN AMBROSIO Negative Normal [facility] Comment on above: Performed By: #### C BCA, CMP, #### [facility] ([id number]) [address] [place] [address] 76341 BLOOD/HGB AMBROSIO Negative Normal [facility] Comment on above: Performed By: #### C BCA, CMP, #### [facility] ([id number]) [address] [place] [address] 71960 GLUCOSE AMBROSIO Negative Normal [facility] Comment on above: Performed By: #### C BCA, CMP, #### [facility] ([id number]) [address] [place] [address] [place] [address] KETONES AMBROSIO Negative Normal [facility] Comment on above: Performed By: #### C BCA, CMP, #### [facility] ([id number]) [address] [place] [address] [place] [address] LEUKOCYTE ESTERASE AMBROSIO Negative Normal NEG [facility] Comment on above: Performed By: #### C BCA, CMP, #### [facility] ([id number]) [address] [place] [address] [place] [address] NITRITE AMBROSIO Negative Normal [facility] Comment on above: Performed By: #### C BCA, CMP, #### [facility] ([id number]) [address] [place] [address] 00277 PH AMBROSIO 8.5 Normal 5.0-8.5 [facility] Comment on above: Performed By: #### C BCA, CMP, #### [facility] ([id number]) [address] [place] [address] 33841 PROTEIN AMBROSIO Negative Normal [facility] Comment on above: Performed By: #### C JACKSON ROBISON, 78303-4 #### [facility] ([id number]) [address] [place] [address] 05443 SPECIFIC GRAVITY AMBROSIO 1.015 Normal 1.003-1.035 [facility] Comment on above: Performed By: #### C JACKSON ROBISON, 82922-3 #### [facility] ([id number]) [address] [place] [address] 16736 UROBILINOGEN AMBROSIO 0.2 eu/dL Normal <1.1 [facility] Comment on above: Performed By: #### Alvarez ROBISON CMP, 89076-3 #### [facility] ([id number]) [address] [place] [address] 56400 CBC AND AUTO DIFFon 01-28-20 25 ABSOLUTE BASOPHIL 0.1 X10E9/L Normal 0.0-0.2 [facility] Comment on above: Performed By: #### Alvarez ROBISON [facility], 76151-9 #### [facility] ([id number]) [address] [place] [address] 78326 ABSOLUTE NEUTROPHIL 4.2 X10E9/L Normal 1.5-6.6 [facility] Comment on above: Performed By: #### Alvarez ROBISON CMP, 72895-0 #### [facility] ([id number]) [address] [place] [address] 85269 Basophils/100 WBC (Bld) 1.7 % Normal [facility] Comment on above: Performed By: #### Alvarez ROBISON CMP, 70331-9 #### [facility] ([id number]) [address] [place] [address] 83679 Eosinophils (Bld) [#/Vol] 0.1 10*3/uL Normal 0.0-0.4 [facility] Comment on above: Performed By: #### C RICKI [facility], #### [facility] ([id number]) [address] [place] [address] 76894 Eosinophils/100 WBC (Bld) 1.2 % Normal [facility] Comment on above: Performed By: #### C RICKI [facility], #### [facility] ([id number]) [address] [place] [address] 77494 Erythrocyte distribution width (RBC) [Ratio] 14.0 % Normal 11.5-15.0 [facility] Comment on above: Performed By: #### C RICKI [facility], #### [facility] ([id number]) [address] [place] [address] 85500 Hematocrit (Bld) [Volume fraction] 39.5 % Normal 39-49 [facility] Comment on above: Performed By: #### Alvarez ROBISON [facility], #### [facility] ([id number]) [address] [place] [address] 45133 Hemoglobin (Bld) [Mass/Vol] 13.0 g/dL Normal 13.0-17.0 [facility] Comment on above: Performed By: #### C RICKI [facility], #### [facility] ([id number]) [address] [place] [address] 11834 Lymphocytes (Bld) [#/Vol] 1.3 10*3/uL Normal 1.0-3.5 [facility] Comment on above: Performed By: #### C RICKI [facility], #### [facility] ([id number]) [address] [place] [address] 55373 Lymphocytes/100 WBC (Bld) 21.7 % Normal [facility] Comment on above: Performed By: #### C JACKSON ROBISON, #### [facility] ([id number]) [address] [place] [address] 74366 MCH (RBC) [Entitic mass] 29.6 pg Normal 27-34 [facility] Comment on above: Performed By: #### C RICKI, CMP, #### [facility] ([id number]) [address] [place] [address] 05597 MCHC (RBC) [Mass/Vol] 32.8 g/dL Normal 32-36 [facility] Comment on above: Performed By: #### C RICKI, CMP, #### [facility] ([id number]) [address] [place] [address] 25970 MCV (RBC) [Entitic vol] 90 fL Normal 80-100 [facility] Comment on above: Performed By: #### Alvarez ROBISON, CMP, #### [facility] ([id number]) [address] [place] [address] 11731 Monocytes (Bld) [#/Vol] 0.4 10*3/uL Normal 0-0.9 [facility] Comment on above: Performed By: #### C RICKI, CMP, #### [facility] ([id number]) [address] [place] [address] 54687 Monocytes/100 WBC (Bld) 7.0 % Normal [facility] Comment on above: Performed By: #### C BCA, CMP, #### [facility] ([id number]) [address] [place] [address] 39613 Neutrophils/100 WBC (Bld) 68.4 % Normal [facility] Comment on above: Performed By: #### Alvarez BCA, CMP, #### [facility] ([id number]) [address] [place] [address] 81768 Platelet mean volume (Bld) [Entitic vol] 7.4 fL Normal 7-12 [facility] Comment on above: Performed By: #### C BCA, CMP, 72409-3 #### [facility] ([id number]) [address] [place] [address] 51492 Platelets (Bld) [#/Vol] 302 10*3/uL Normal 150-450 [facility] Comment on above: Performed By: #### C BCA, CMP, 06453-6 #### [facility] ([id number]) [address] [place] [address] 72842 RBC COUNT 4.38 X10E12/L Normal 4.10-5.70 [facility] Comment on above: Performed By: #### C BCA, CMP, 65900-8 #### [facility] ([id number]) [address] [place] [address] 67889 WBC (Bld) [#/Vol] 6.2 10*3/uL Normal 4.0-11.0 [facility] Comment on above: Performed By: #### C BCA, CMP, 81200-6 #### [facility] ([id number]) [address] [place] [address] 81899 COMPREHENSIVE METABOLIC PANE Jesús 01-27-2025 Albumin [Mass/Vol] 4.3 g/dL Normal 3.2-5.3 [facility] Comment on above: Performed By: #### C BCA, CMP, 02139-7 #### [facility] ([id number]) [address] [place] [address] 81107 ALP [Catalytic activity/Vol] 70 U/L Normal 39-130 [facility] Comment on above: Performed By: #### C BCA, CMP, 82761-1 #### [facility] ([id number]) [address] [place] [address] 59397 ALT [Catalytic activity/Vol] 13 U/L Normal 0-40 [facility] Comment on above: Performed By: #### C JACKSON ROBISON, 17099-3 #### [facility] ([id number]) [address] [place] [address] 54674 Anion gap [Moles/Vol] 9 mmol/L Normal 5-15 [facility] Comment on above: Performed By: #### C JACKSON ROBISON, 21041-6 #### [facility] ([id number]) [address] [place] [address] 72642 AST [Catalytic activity/Vol] 21 U/L Normal 0-41 [facility] Comment on above: Performed By: #### Alvarez ROBISON CMP, 96096-6 #### [facility] ([id number]) [address] [place] [address] 86943 Bilirubin [Mass/Vol] 0.5 mg/dL Normal 0.3-1.2 [facility] Comment on above: Performed By: #### Alvarez ROBISON CMP, 38389-7 #### [facility] ([id number]) [address] [place] [address] 17260 Calcium [Mass/Vol] 9.9 mg/dL Normal 8.5-10.5 [facility] Comment on above: Performed By: #### Alvarez ROBISON CMP, #### [facility] ([id number]) [address] [place] [address] 33918 Chloride [Moles/Vol] 105 mmol/L Normal 98-109 [facility] Comment on above: Performed By: #### C RICKI CMP, 22137-4 #### [facility] ([id number]) [address] [place] [address] 88392 CO2 [Moles/Vol] 25 mmol/L Normal 22-32 [facility] Comment on above: Performed By: #### Alvarez ROBISON, CMP, #### [facility] ([id number]) [address] [place] [address] 85285 Creatinine [Mass/Vol] 0.75 mg/dL Normal 0.60-1.30 [facility] Comment on above: Result Comment: METH OD TRACEABLE TO IDMS STANDARD Performed By: #### C JACKSON ROBISON, 37615-5 #### [facility] ([id number]) [address] [place] [address] 75017 eGFR (CKD-EPI) NON-RACE DEPENDENT >90 Normal >59 [facility] Comment on above: Result Comment: Reported eGFR is based on the CKD-EPI 2020 equation that does not use a race coefficient. Performed By: #### C JACKSON ROBISON, 68014-8 #### [facility] ([id number]) [address] [place] [address] 16596 Glucose [Mass/Vol] 79 mg/dL Normal 65-99 [facility] Comment on above: Performed By: #### C JACKSON ROBISON, 59280-6 #### [facility] ([id number]) [address] [place] [address] 21750 Potassium [Moles/Vol] 4.1 mmol/L Normal 3.5-5.0 [facility] Comment on above: Performed By: #### C JACKSON ROBISON, 10114-7 #### [facility] ([id number]) [address] [place] [address] [id number] Protein [Mass/Vol] 7.4 g/dL Normal 6.0-8.0 [facility] Comment on above: Performed By: #### C JACKSON ROBISON, #### [facility] ([id number]) [address] [place] [address] 62945 Sodium [Moles/Vol] 139 mmol/L Normal 134-146 [facility] Comment on above: Performed By: #### C JACKSON ROBISON, #### [facility] ([id number]) [address] [place] [address] 25303 Urea nitrogen [Mass/Vol] 15 mg/dL Normal 5-23 [facility] Comment on above: Performed By: #### C RICKI, CMP, 37121-1 #### [facility] ([id number]) [address] [place] [address] 57373 CRP [Mass/Vol]on 01-27-2025 C REACTIVE PROTEIN 0.3 mg/dL Normal 0.000-0.744 [facility] Comment on above: Performed By: #### C RICKI, CMP, 94964-2 #### [facility] ([id number]) [address] [place] [address] 44936 ESR Photometric method (Bld) [Velocity]on 01-27-2025 ESR, ERYTHROCYTE SEDIMENTATION RATE 27 mm/h High 0-15 [facility] Comment on above: Performed By: #### C RICKI, JACKSON, 91705-9 #### [facility] ([id number]) [address] [place] [address] 15138 Laboratory comment Josh (Repo rt)on 01-27-2025 UNLISTED LAB TEST Sent to reference lab [facility] Comment on above: Performed By: #### Alvarez ROBISON, CMP, 40901-6 #### [facility] ([id number]) [address] [place] [address] 53273 [place] [facility] ORDERon TEST NAME ADALP ADALIMUMAB LESLIE NT WITH AB, SERUM Normal [facility] Comment on above: Performed By: #### C RICKI, CMP, 13878-3 #### [facility] ([id number]) [address] [place] [address] 93097 TEST RESULT SEE COMMENTS 08:36 PM Normal [facility] Comment on above: Result Comment: NOTE Test Result Flag Unit RefValue ---- Adalimumab QN with Antibodies, S Adalimumab QN, S 9.4 mcg/mL REFERENCE VALUE Limit of Quantitation = 0.8 mcg/mL ADDITIONAL INFORMATION This test was developed and its performance characteristics determined by [facility] in a manner consistent with CLIA requirements. This test has not been cleared or approved by the U.S. Food and Drug Administration. Adalimumab Ab, S <10.0 AU/mL <14.0 ADDITIONAL INFORMATION This test was developed and its performance characteristics determined by [facility] in a manner consistent with CLIA requirements. This test has not been cleared or approved by the U.S. Food and Drug Administration. Adalimumab Interpretation See Note Absence of detectable wdxtkgqk-ho-shzuisizhl (MARÍA ELENA). At this concentration of adalimumab [...] ATAs between 50-150 AU/mL. Test Performed by: [facility] - [address] [address] Scientific Helper: Kristina Quintana Ph.D.; CLIA# [id number] Performed By: #### Alvarez ROBISON CMP, 02147-9 #### [facility] ([id number]) [address] [place] [address] 61279 VITAMIN B12on 01-27-2025 Cobalamin (Vitamin B12) [Mass/Vol] 416 pg/mL Normal 180-914 [facility] Comment on above: Performed By: #### Alvarez ROBISON CMP, 74853-1 #### [facility] ([id number]) [address] [place] [address] 52099 Vitamin D+Metabolites [Mass/ Vol]on 01-27-2025 VITAMIN D 25 HYD TOT 33.4 ng/mL Normal 30-100 [facility] Comment on above: Result Comment: Vitamin D status 25 OH Vitamin D Deficiency <20 ng/mL Insufficiency 20-29 ng/mL Sufficiency 30-100 ng/mL Toxicity >100 ng/mL NOTE: A pediatric reference range has not been established by the vocational rehabilitation teacher of this kit. The [place] [employer] recommends a Vitamin D level of = or >20ng/mL in infants and children. Performed By: #### Alvarez ROBISON CMP, 25033-5 #### [facility] ([id number]) [address] [place] [address] 12390 CBC AND AUTO DIFFon 01-13-20 25 ABSOLUTE BASOPHIL 0.1 X10E9/L Normal 0.0-0.2 [facility] Comment on above: Performed By: #### Alvarez ROBISON CMP, 48612-5 #### [facility] ([id number]) [address] [place] [address] 22158 ABSOLUTE NEUTROPHIL 8.3 X10E9/L High 1.5-6.6 [facility] Comment on above: Performed By: #### Alvarez ROBISON CMP, #### [facility] ([id number]) [address] [place] [address] 15489 Basophils/100 WBC (Bld) 0.5 % Normal [facility] Comment on above: Performed By: #### Alvarez ROBISON CMP, #### [facility] ([id number]) [address] [place] [address] 83514 Eosinophils (Bld) [#/Vol] 0.0 10*3/uL Normal 0.0-0.4 [facility] Comment on above: Performed By: #### Alvarez ROBISON CMP, #### [facility] ([id number]) [address] [place] [address] 40424 Eosinophils/100 WBC (Bld) 0.4 % Normal [facility] Comment on above: Performed By: #### Alvarez ROBISON [facility], #### [facility] ([id number]) [address] [place] [address] 14388 Erythrocyte distribution width (RBC) [Ratio] 14.5 % Normal 11.5-15.0 [facility] Comment on above: Performed By: #### Alvarez ROBISON [facility], #### [facility] ([id number]) [address] [place] [address] 72861 Hematocrit (Bld) [Volume fraction] 38.8 % Low 39-49 [facility] Comment on above: Performed By: #### Alvarez ROBISON [facility], #### [facility] ([id number]) [address] [place] [address] 76802 Hemoglobin (Bld) [Mass/Vol] 13.0 g/dL Normal 13.0-17.0 [facility] Comment on above: Performed By: #### Alvarez ROBISON CMP, #### [facility] ([id number]) [address] [place] [address] Lymphocytes (Bld) [#/Vol] 1.9 10*3/uL Normal 1.0-3.5 [facility] Comment on above: Performed By: #### Alvarez ROBISON CMP, #### [facility] ([id number]) [address] [place] [address] 99049 Lymphocytes/100 WBC (Bld) 16.6 % Normal [facility] Comment on above: Performed By: #### Alvarez ROBISON CMP, #### [facility] ([id number]) [address] [place] [address] 97992 MCH (RBC) [Entitic mass] 29.5 pg Normal 27-34 [facility] Comment on above: Performed By: #### Alvarez ROBISON CMP, #### [facility] ([id number]) [address] [place] [address] 86141 MCHC (RBC) [Mass/Vol] 33.6 g/dL Normal 32-36 [facility] Comment on above: Performed By: #### Alvarez ROBISON [facility], #### [facility] ([id number]) [address] [place] [address] 31793 MCV (RBC) [Entitic vol] 88 fL Normal 80-100 [facility] Comment on above: Performed By: #### Alvarez ROBISON CMP, #### [facility] ([id number]) [address] [place] [address] 93099 Monocytes (Bld) [#/Vol] 0.9 10*3/uL Normal 0-0.9 [facility] Comment on above: Performed By: #### Alvarez ROBISON CMP, #### [facility] ([id number]) [address] [place] [address] 33448 Monocytes/100 WBC (Bld) 8.0 % Normal [facility] Comment on above: Performed By: #### C RICKI CMP, #### [facility] ([id number]) [address] [place] [address] 99861 Neutrophils/100 WBC (Bld) 74.5 % Normal [facility] Comment on above: Performed By: #### C RICKI CMP, #### [facility] ([id number]) [address] [place] [address] 25760 Platelet mean volume (Bld) [Entitic vol] 6.9 fL Low 7-12 [facility] Comment on above: Performed By: #### C RICKI CMP, #### [facility] ([id number]) [address] [place] [address] 76345 Platelets (Bld) [#/Vol] 292 10*3/uL Normal 150-450 [facility] Comment on above: Performed By: #### Alvarez ROBISON CMP, #### [facility] ([id number]) [address] [place] [address] 28813 RBC COUNT 4.42 X10E12/L Normal 4.10-5.70 [facility] Comment on above: Performed By: #### Alvarez ROBISON CMP, #### [facility] ([id number]) [address] [place] [address] 26109 WBC (Bld) [#/Vol] 11.2 10*3/uL High 4.0-11.0 [facility] Comment on above: Performed By: #### Alvarez ROBISON CMP, #### [facility] ([id number]) [address] [place] [address] 55740 COMPREHENSIVE METABOLIC PANE Jesús 01-12-2025 Albumin [Mass/Vol] 3.9 g/dL Normal 3.2-5.3 [facility] Comment on above: Performed By: #### C RICKI CMP, #### [facility] ([id number]) [address] [place] [address] 98388 ALP [Catalytic activity/Vol] 62 U/L Normal 39-130 [facility] Comment on above: Performed By: #### C BCA, CMP, #### [facility] ([id number]) [address] [place] [address] 55147 ALT [Catalytic activity/Vol] 19 U/L Normal 0-40 [facility] Comment on above: Performed By: #### C BCA, CMP, #### [facility] ([id number]) [address] [place] [address] 71935 Anion gap [Moles/Vol] 7 mmol/L Normal 5-15 [facility] Comment on above: Performed By: #### C BCA, CMP, #### [facility] ([id number]) [address] [place] [address] 10609 AST [Catalytic activity/Vol] 23 U/L Normal 0-41 [facility] Comment on above: Performed By: #### C BCA, CMP, #### [facility] ([id number]) [address] [place] [address] 45235 Bilirubin [Mass/Vol] 0.6 mg/dL Normal 0.3-1.2 [facility] Comment on above: Performed By: #### C BCA, CMP, #### [facility] ([id number]) [address] [place] [address] 51625 Calcium [Mass/Vol] 9.3 mg/dL Normal 8.5-10.5 [facility] Comment on above: Performed By: #### C BCA, CMP, #### [facility] ([id number]) [address] [place] [address] 63641 Chloride [Moles/Vol] 102 mmol/L Normal 98-109 [facility] Comment on above: Performed By: #### C RICKI [facility], 40886-5 #### [facility] ([id number]) [address] [place] [address] 75458 CO2 [Moles/Vol] 27 mmol/L Normal 22-32 [facility] Comment on above: Performed By: #### C RICKI [facility], #### [facility] ([id number]) [address] [place] [address] 82489 Creatinine [Mass/Vol] 0.78 mg/dL Normal 0.70-1.20 [facility] Comment on above: Result Comment: METH OD TRACEABLE TO IDMS STANDARD Performed By: #### C JACKSON ROBISON, #### [facility] ([id number]) [address] [place] [address] 45695 eGFR (CKD-EPI) NON-RACE DEPENDENT >90 Normal >59 [facility] Comment on above: Result Comment: Reported eGFR is based on the CKD-EPI 2020 equation that does not use a race coefficient. Performed By: #### C RICKI [facility], #### [facility] ([id number]) [address] [place] [address] 59123 Glucose [Mass/Vol] 107 mg/dL High 65-99 [facility] Comment on above: Performed By: #### C RICKI [facility], 81526-3 #### [facility] ([id number]) [address] [place] [address] 66377 Potassium [Moles/Vol] 3.4 mmol/L Low 3.5-5.0 [facility] Comment on above: Performed By: #### C JACKSON ROBISON, #### [facility] ([id number]) [address] [place] [address] 46871 Protein [Mass/Vol] 7.4 g/dL Normal 6.0-8.0 [facility] Comment on above: Performed By: #### C RICKI [facility], 95336-6 #### [facility] ([id number]) [address] [place] [address] 97482 Sodium [Moles/Vol] 136 mmol/L Normal 134-146 [facility] Comment on above: Performed By: #### C RICKI, [facility], 67624-1 #### [facility] ([id number]) [address] [place] [address] 89174 Urea nitrogen [Mass/Vol] 17 mg/dL Normal 5-23 [facility] Comment on above: Performed By: #### C RICKI [facility], 82505-5 #### [facility] ([id number]) [address] [place] [address] ABDOMEN AND PELVIS W CONT on 01-12-2025 CT ABDOMEN AND PELVIS W CONT CT ABDOMEN AND PELVIS W CONT CLINICAL INFORMATION: Abdominal pain, acute, nonlocalized; Generalized abdominal pain, vomiting. History of Crohn's. COMPARISON: 12/13/2024 TECHNIQUE: CT of the abdomen and pelvis with intravenous contrast. FINDINGS: LOWER CHEST: No pericardial or pleural effusion. LIVER AND BILIARY: Normal morphology without biliary dilatation. Nonvisualized gallbladder. PANCREAS: Within normal limits. SPLEEN: Within normal limits. ADRENALS: Within normal limits. KIDNEYS, URETERS, AND BLADDER: Sequential enhancement. No hydronephrosis. Normal bladder. GI TRACT AND PERITONEUM: Postoperative changes of the cecum. No abnormal bowel wall thickening or obstruction. No fluid collection or free air. VASCULATURE: Normal caliber aorta. The portal vein appears patent for technique. Retroaortic left renal vein. LYMPH NODES: Within normal limits. REPRODUCTIVE ORGANS: No acute abnormality. MUSCULOSKELETAL: No acute abnormality. IMPRESSION: No acute abnormality. No obstruction. All CT scans at this facility use dose modulation, iterative reconstruction, and/or weight based dosing when appropriate to reduce radiation dose to as low as reasonably achievable. Finalized by Tahmina Julien MD on 01/12/2025 11:55 PM Normal [facility] Ambulatory Visit Summaryon 0 12-27-2024 Ambulatory Visit Summary Ambulatory Visit Summary FRIEND, WILLIAM Powell :1995 Visit Date:12/27/2024 Ambulatory Visit Instructions Your Diagnosis BMI 23.0-23.9, adult Former smoker Your Care Team Attending Physician - Kira Lorenzana Primary Care Physician - Casey Carpio MD This Is Your Medications List adalimumab (adalimumab-ryvk 40 mg/0.4 mL subcutaneous kit) Procedures Performed History of colectomy (07/11/2024), Arthroscopy of knee, Cholecystectomy, Epididymal cyst. Discharge Vitals Heart Rate (Peripheral) 102 Respiratory Rate 18 Blood Pressure 118/72 Height 165.0 cm Height 65 in Weight 64.35 kg Weight 141.867 lb BMI 23.64 What to do next Scheduled Follow-Up Appointments Monday. 2024 3:40 PM EDT With: Casey Carpio MD Where: [place] [id number]- Medications What When Instructions Unchanged adalimumab (adalimumab-ryvk 40 mg/ 0.4 mL subcutaneous kit) Allergies No Known Allergies Problems Ongoing - Any problem that you are currently receiving treatment for. Abdominal pain Acute URI BMI 23.0-23.9, adult Chest pain Crohn disease Former smoker History of epididymitis Hospital discharge follow-up Inguinal lymphadenopathy Rash Reactive lymphadenopathy Recurrent UTI Patient Survey You may receive a survey via text or e-mail asking about your office visit. Please share your experience with us by completing your survey. We appreciate your feedback and thank you for choosing us for your care. Normal [facility] Family Medicine Office/Clini c Noteon 12-27-2024 Family Medicine Office/Clinic Note Family Medicine Office/Clinic Note HPI Staff William is a 29 year old male presenting for ER follow up ER followup: 12/02/24 pt was a [facility] given Hydrocodone for 3 days no signs of chrons to follow up with GI Hospital: [facility] (records requested 12/27/24) Visit date: 12/13/24 Symptoms the patient presented with: stomach pain feels like stomach is twisting Symptom onset/injury onset: 2 weeks Testing Performed: New medications: New specialist involved Therapy ordered: Next appointment date: Current concerns: Having flair ups he feels like 1-2 times a month, Pt does have appointment with GI 02/19/25 he did ask if there was anything sooner and they don't 'have anything. Does have nausea and has some diarrhea History of Present Illness pt presents today for hospital ER follow up Crohn's flare up Review of Systems PHQ Score Initial Depression Screen Score: 0 SCORE Physical Exam Vitals & Measurements HR: 102(Peripheral) RR: 18 BP: 118/72 SpO2: 99% HT: 65 in HT: 165.0 cm WT: 64.35 kg WT: 141.867 lb BMI: 23.64 General: alert, no acute distress ENMT: oral mucosa moist, no pharyngeal erythema or exudate Cardiovascular: regular rate and rhythm, normal peripheral perfusion Respiratory: Lungs CTA, respirations non labored Extremities: no deformity, no trauma Neurological: oriented x 4, LOC appropriate for age, CN II-XII intact, motor strength equal & normal bilaterally, speech normal Assessment/Plan 1. Crohn disease (K50.90: Crohn's disease, unspecified, without complications) pt has been to the ER twice for Crohn's flare up. pt is still having abdominal pain and diarrhea with stomach cramping. he is scheduled to see GI in February. prednisone, bentyl and a couple norco were sent in to help with symptoms. pt was also encouraged to get Imodium to help with diarrhea. he has to keep walking away from his job site to go to the bathroom. 2. BMI 23.0-23.9, adult (Z68.23: Body mass index [BMI] 23.0-23.9, adult) BMI education given Ordered: dicyclomine, 20 mg = 1 tab(s), Oral, QID, X 7 day(s), # 28 tab(s), Refills(s) 0, Pharmacy: [facility]/pharmacy #[id number], 165, cm, 12/27/24 13:55:00 EDT, Height/Length Dosing, 64.3, kg, 12/27/24 13:55:00 EDT, Weight Dosing 3. Former smoker (Z87.891: Personal history of nicotine dependence) continue not smoking Ordered: dicyclomine, 20 mg = 1 tab(s), Oral, QID, X 7 day(s), # 28 tab(s), Refills(s) 0, Pharmacy: [facility]/pharmacy #[id number], 165, cm, 12/27/24 13:55:00 EDT, Height/Length Dosing, 64.3, kg, 12/27/24 13:55:00 EDT, Weight Dosing Orders: acetaminophen-hydrocodo ne, 1 tab(s), Oral, q6hr for pain, 10 tab(s), Refill(s) 0, [facility]acy [facility][id number], 165, cm, 12/27/24 13:55:00 EDT, Height/Length Dosing, 64.3, kg, 12/27/24 13:55:00 EDT, Weight Dosing predniSONE, See Instructions, TAKE 2 TABLETS BY MOUTH DAILY with breakfast FOR 5 DAYS, # 10 EA, Refills(s) 0, Pharmacy: [facility]/pharmacy #[id number], 165, cm, 12/27/24 13:55:00 EDT, Height/Length Dosing, 64.3, kg, 12/27/24 13:55:00 EDT, Weight Dosing Follow-up No qualifying data available Problem List/Past Medical History Ongoing Abdominal pain Acute URI BMI 23.0-23.9, adult Chest pain Crohn disease Former smoker History of epididymitis Hospital discharge follow-up Inguinal lymphadenopathy Rash Reactive lymphadenopathy Recurrent UTI Historical No qualifying data Procedure/Surgical History History of colectomy (07/11/2024), Arthroscopy of knee, Cholecystectomy, Epididymal cyst. Medications acetaminophen-hydrocodo ne 325 mg-5 mg oral tablet, 1 tab(s), Oral, q6hr, PRN adalimumab-ryvk 40 mg/0.4 mL subcutaneous kit dicyclomine 20 mg Tab, 20 mg= 1 tab(s), Oral, QID predniSONE 20 mg Tab, See Instructions Allergies No Known Allergies Social History Alcohol Never., 10/15/2024 Substance Abuse Never., 10/15/2024 Tobacco - Denies Tobacco Use, 07/08/2024 Former smoker, quit more than 30 days ago Tobacco Use:. Never Smokeless Tobacco Use:. Cigarettes, Household tobacco concerns: No. Yes, 11/25/2024 Immunizations Vaccine Date Status Comments SARS-CoV-2 (COVID-19) Ad26 vaccine - Not Given Temporary contraindication - reschedule Normal [facility] Comment on above: Result Comment: Elec tronically Signed By: Kira Lorenzana\.br\Date and Time Signed: 12/27/24 14:20 EDT Provider Letteron 12-27-2024 Provider Letter Provider Letter December 27, 2024 [address]IAM FRIEND [address] [place] [phone] : 1995 To Whom It May Concern, Please excuse above patient from work. Date of Illness: From: 12/27/2024 To: 12/27/2024 May Return to Work On:12/30/2024 Sincerely, [facility] [address] [place] [address] 19306 Normal [facility] CBC AND AUTO DIFFon 12-13-19 25 ABSOLUTE BASOPHIL 0.1 X10E9/L Normal 0.0-0.2 [facility] Comment on above: Performed By: #### C RICKI [facility], 01703-2 #### [facility] ([id number]) [address] [place] [address] 12544 ABSOLUTE NEUTROPHIL 5.6 X10E9/L Normal 1.5-6.6 [facility] Comment on above: Performed By: #### C RICKI CMP, 49501-1 #### [facility] ([id number]) [address] [place] [address] 32469 Basophils/100 WBC (Bld) 0.7 % Normal [facility] Comment on above: Performed By: #### C RICKI CMP, 66296-1 #### [facility] ([id number]) [address] [place] [address] 69020 Eosinophils (Bld) [#/Vol] 0.1 10*3/uL Normal 0.0-0.4 [facility] Comment on above: Performed By: #### C RICKI CMP, 09945-8 #### [facility] ([id number]) [address] [place] [address] 19911 Eosinophils/100 WBC (Bld) 0.8 % Normal [facility] Comment on above: Performed By: #### Alvarez ROBISON [facility], #### [facility] ([id number]) [address] [place] [address] 82849 Erythrocyte distribution width (RBC) [Ratio] 14.1 % Normal 11.5-15.0 [facility] Comment on above: Performed By: #### Alvarez ROBISON CMP, #### [facility] ([id number]) [address] [place] [address] 10279 Hematocrit (Bld) [Volume fraction] 39.4 % Normal 39-49 [facility] Comment on above: Performed By: #### Alvarez ROBISON [facility], #### [facility] ([id number]) [address] [place] [address] 56181 Hemoglobin (Bld) [Mass/Vol] 13.2 g/dL Normal 13.0-17.0 [facility] Comment on above: Performed By: #### Alvarez ROBISON [facility], 71830-8 #### [facility] ([id number]) [address] [place] [address] 46755 Lymphocytes (Bld) [#/Vol] 1.3 10*3/uL Normal 1.0-3.5 [facility] Comment on above: Performed By: #### Alvarez ROBISON CMP, 91963-4 #### [facility] ([id number]) [address] [place] [address] 16025 Lymphocytes/100 WBC (Bld) 17.2 % Normal [facility] Comment on above: Performed By: #### Alvarez ROBISON CMP, #### [facility] ([id number]) [address] [place] [address] 73429 MCH (RBC) [Entitic mass] 29.6 pg Normal 27-34 [facility] Comment on above: Performed By: #### Alvarez ROBISON CMP, #### [facility] ([id number]) [address] [place] [address] 43597 MCHC (RBC) [Mass/Vol] 33.7 g/dL Normal 32-36 [facility] Comment on above: Performed By: #### Alvarez ROBISON CMP, #### [facility] ([id number]) [address] [place] [address] 89077 MCV (RBC) [Entitic vol] 88 fL Normal 80-100 [facility] Comment on above: Performed By: #### Alvarez ROBISON CMP, #### [facility] ([id number]) [address] [place] [address] 10182 Monocytes (Bld) [#/Vol] 0.5 10*3/uL Normal 0-0.9 [facility] Comment on above: Performed By: #### Alvarez ROBISON CMP, #### [facility] ([id number]) [address] [place] [address] 43328 Monocytes/100 WBC (Bld) 7.1 % Normal [facility] Comment on above: Performed By: #### Alvarez ROBISON CMP, #### [facility] ([id number]) [address] [place] [address] 52783 Neutrophils/100 WBC (Bld) 74.2 % Normal [facility] Comment on above: Performed By: #### Alvarez ROBISON CMP, #### [facility] ([id number]) [address] [place] [address] 64577 Platelet mean volume (Bld) [Entitic vol] 7.1 fL Normal 7-12 [facility] Comment on above: Performed By: #### Alvarez ROBISON CMP, #### [facility] ([id number]) [address] [place] [address] 15250 Platelets (Bld) [#/Vol] 328 10*3/uL Normal 150-450 [facility] Comment on above: Performed By: #### C BCA, CMP, 10221-9 #### [facility] ([id number]) [address] [place] [address] 78547 RBC COUNT 4.47 X10E12/L Normal 4.10-5.70 [facility] Comment on above: Performed By: #### C BCA, CMP, 90726-1 #### [facility] ([id number]) [address] [place] [address] 80299 WBC (Bld) [#/Vol] 7.5 10*3/uL Normal 4.0-11.0 [facility] Comment on above: Performed By: #### C BCA, CMP, 47254-1 #### [facility] ([id number]) [address] [place] [address] 21682 COMPREHENSIVE METABOLIC PANE Jesús 12-13-2024 Albumin [Mass/Vol] 4.0 g/dL Normal 3.2-5.3 [facility] Comment on above: Performed By: #### C BCA, CMP, 67857-7 #### [facility] ([id number]) [address] [place] [address] 35298 ALP [Catalytic activity/Vol] 66 U/L Normal 39-130 [facility] Comment on above: Performed By: #### C BCA, CMP, 92439-8 #### [facility] ([id number]) [address] [place] [address] 37077 ALT [Catalytic activity/Vol] 14 U/L Normal 0-40 [facility] Comment on above: Performed By: #### C BCA, CMP, 83874-2 #### [facility] ([id number]) [address] [place] [address] 27903 Anion gap [Moles/Vol] 5 mmol/L Normal 5-15 [facility] Comment on above: Performed By: #### C BCA, CMP, 83387-5 #### [facility] ([id number]) [address] [place] [address] 13976 AST [Catalytic activity/Vol] 17 U/L Normal 0-41 [facility] Comment on above: Performed By: #### C BCA, CMP, 72982-4 #### [facility] ([id number]) [address] [place] [address] 12423 Bilirubin [Mass/Vol] 0.6 mg/dL Normal 0.3-1.2 [facility] Comment on above: Performed By: #### C RICKI, CMP, #### [facility] ([id number]) [address] [place] [address] 84275 Calcium [Mass/Vol] 9.5 mg/dL Normal 8.5-10.5 [facility] Comment on above: Performed By: #### C RICKI, CMP, 63282-5 #### [facility] ([id number]) [address] [place] [address] 30457 Chloride [Moles/Vol] 105 mmol/L Normal 98-109 [facility] Comment on above: Performed By: #### C BCA, CMP, 20759-2 #### [facility] ([id number]) [address] [place] [address] 81449 CO2 [Moles/Vol] 28 mmol/L Normal 22-32 [facility] Comment on above: Performed By: #### C BCA, CMP, 03649-0 #### [facility] ([id number]) [address] [place] [address] 29474 Creatinine [Mass/Vol] 0.71 mg/dL Normal 0.70-1.20 [facility] Comment on above: Result Comment: METH OD TRACEABLE TO IDMS STANDARD Performed By: #### C JACKSON ROBISON, 20680-7 #### [facility] ([id number]) [address] [place] [address] 52028 eGFR (CKD-EPI) NON-RACE DEPENDENT >90 Normal >59 [facility] Comment on above: Result Comment: Reported eGFR is based on the CKD-EPI 2020 equation that does not use a race coefficient. Performed By: #### C JACKSON ROBISON, #### [facility] ([id number]) [address] [place] [address] 18803 Glucose [Mass/Vol] 103 mg/dL High 65-99 [facility] Comment on above: Performed By: #### Alvarez ROBISON CMP, 59499-6 #### [facility] ([id number]) [address] [place] [address] 33102 Potassium [Moles/Vol] 4.0 mmol/L Normal 3.5-5.0 [facility] Comment on above: Performed By: #### C RICKI [facility], 20175-2 #### [facility] ([id number]) [address] [place] [address] 87428 Protein [Mass/Vol] 7.7 g/dL Normal 6.0-8.0 [facility] Comment on above: Performed By: #### C RICKI [facility], 27786-3 #### [facility] ([id number]) [address] [place] [address] 10854 Sodium [Moles/Vol] 138 mmol/L Normal 134-146 [facility] Comment on above: Performed By: #### C JACKSON ROBISON, 01266-3 #### [facility] ([id number]) [address] [place] [address] 27586 Urea nitrogen [Mass/Vol] 13 mg/dL Normal 5-23 [facility] Comment on above: Performed By: #### C JACKSON ROBISON, 74432-8 #### [facility] ([id number]) [address] [place] [address] CT ABDOMEN AND PELVIS W CONT on 12-13-2024 CT ABDOMEN AND PELVIS W CONT CT ABDOMEN AND PELVIS W CONT HISTORY: Abdomen pain. Nausea. Diarrhea. History of Crohn's disease COMPARISON: 11/05/2024 TECHNIQUE: Routine CT abdomen and pelvis obtained after the uncomplicated intravenous administration of contrast material.Multiplanar reformats obtained from the axial data. Automated exposure control was utilized. CONTRAST: Omnipaque FINDINGS: Liver and gallbladder: Prior cholecystectomy Spleen: Normal. Pancreas: Normal. Adrenal glands: Normal. Kidneys: No acute renal process. The proximal ureters are more prominent than expected. This could represent peristaltic activity. No magdalena hydronephrosis. Bowel: Oral contrast is noted in the distal small bowel loops as well as the colon. There is no evidence of small bowel obstruction. No free air Aorta: Normal. Pelvis: Urinary bladder is unremarkable. No stone is appreciated. No free fluid in the pelvis. Osseous structures: No acute findings. IMPRESSION: 1. No acute intraperitoneal process. All CT scans at this facility use dose modulation, iterative reconstruction, and/or weight based dosing when appropriate to reduce radiation dose to as low as reasonably achievable. Finalized by Alycia Blanco MD on 12/13/2024 2:03 PM Normal [facility] LIPASEon 12-13-2024 Lipase [Catalytic activity/Vol] 35 U/L Normal 17-40 [facility] Comment on above: Performed By: #### C JACKSON ROBISON, 03433-1 #### [facility] ([id number]) [address] [place] [address] Lactate (P isaias) [Moles/Vol]o n 12-13-2024 LACTATE W/REFLEX 1.5 mmol/L Normal 0.4-2.0 [facility] Comment on above: Result Comment: Result did not trigger repeat Lactate, re-order if needed. Performed By: #### C JACKSON ROBISON, 46099-1 #### [facility] ([id number]) [address] [facility], [place] [address] MAGNESIUMon 12-13-2024 Magnesium [Mass/Vol] 1.8 mg/dL Normal 1.8-2.6 [facility] Comment on above: Performed By: #### C BCA, CMP, 72787-4 #### [facility] ([id number]) [address] [place] [id number] Alanine aminotransferase [En zymatic activity/volume] in Serum or PlasmaOrdered By: PROVIDER TEMP on 12-02-2024 ALT [Catalytic activity/Vol] Alanine aminotransferase [Enzymatic activity/volume] in Serum or Plasma 52 [facility] Albumin [Mass/volume] in Ser um or Plasma by Bromocresol green (BCG) dye binding methoOrdered By: PROVIDER TEMP on 12-02-2024 Albumin BCG dye [Mass/Vol] Albumin [Mass/volume] in Serum or Plasma by Bromocresol green (BCG) dye binding metho 3.5-5.7 [facility] Alkaline phosphatase [Enzyma tic activity/volume] in Serum or PlasmaOrdered By: PROVIDER TEMP on 12-02-2024 ALP [Catalytic activity/Vol] Alkaline phosphatase [Enzymatic activity/volume] in Serum or Plasma 34-104 [facility] Aspartate aminotransferase [ Enzymatic activity/volume] in Serum or PlasmaOrdered By: PROVIDER TEMP on 12-02-2024 AST [Catalytic activity/Vol] Aspartate aminotransferase [Enzymatic activity/volume] in Serum or Plasma 13-39 [facility] Basic Metabolic Panelon 11-16 Anion gap [Moles/Vol] 10.9 mmol/L Normal 6.0-15.0 [facility] Comment on above: Performed By: #### C RP, CBC, LIPASE, HEPATIC, BMP #### [facility] [address] Calcium [Mass/Vol] 9.6 mg/dL Normal 8.6-10.3 [facility] Comment on above: Performed By: #### C RP, CBC, LIPASE, HEPATIC, BMP #### [facility] [address] Chloride [Moles/Vol] 108 mmol/L High 98-107 [facility] Comment on above: Performed By: #### C RP, CBC, LIPASE, HEPATIC, BMP #### [facility] [address] CO2 [Moles/Vol] 27.8 mmol/L Normal 21.0-31.0 [facility] Comment on above: Performed By: #### C RP, CBC, LIPASE, HEPATIC, BMP #### [address] Creatinine [Mass/Vol] 0.60 mg/dL Low 0.70-1.30 [facility] Comment on above: Performed By: #### C RP, CBC, LIPASE, HEPATIC, BMP #### [address] Creatinine Clr Calc Pharmacy 161.99 Normal [facility] Comment on above: Performed By: #### C RP, CBC, LIPASE, HEPATIC, BMP #### [place] [address] [place] GFR/1.73 sq M.predicted MDRD (S/P/Bld) [Vol rate/Area] mL/min/{1.73_m2} Normal [facility] Comment on above: Performed By: #### C RP, CBC, LIPASE, HEPATIC, BMP #### [address] Glucose [Mass/Vol] 89 mg/dL Normal 70-100 [facility] Comment on above: Result Comment: [place] Glucose Reference Range is dependent on time and content of last meal. Glucose of more than 200 mg/dL in a nonstressed, ambulatory subject supports the diagnosis of Diabetes Mellitus. ADA recommended reference range Performed By: #### C RP, CBC, LIPASE, HEPATIC, BMP #### [address] Potassium [Moles/Vol] 3.7 mmol/L Normal 3.5-5.1 [facility] Comment on above: Performed By: #### C RP, CBC, LIPASE, HEPATIC, BMP #### [facility] [address] Sodium [Moles/Vol] 143 mmol/L Normal 136-145 [facility] Comment on above: Performed By: #### C RP, CBC, LIPASE, HEPATIC, BMP #### [facility] [address] [place] [id number] [facility] Urea nitrogen [Mass/Vol] 16 mg/dL Normal 7-25 [facility] Comment on above: Performed By: #### C RP, CBC, LIPASE, HEPATIC, BMP #### [facility] [address] [place] [address] [place] Basophils Auto (Bld) [#/Vol] Ordered By: PROVIDER TEMP on 12-02-2024 Basophils (Bld) [#/Vol] Automated basoph il count 0.0-0.2 [facility] Basophils/100 WBC Auto (Bld) Ordered By: PROVIDER TEMP on 12-02-2024 Basophils/100 WBC (Bld) Automated basophil % . [facility] Bilirubin.direct [Mass/volum e] in Serum or PlasmaOrdered By: PROVIDER TEMP on 12-02-2024 Bilirubin.direct [Mass/Vol] Bilirubin.direct [Mass/volume] in Serum or Plasma 0.03-0.18 [facility] Bilirubin.total [Mass/volume ] in Serum or PlasmaOrdered By: PROVIDER TEMP on 12-02-2024 Bilirubin [Mass/Vol] Bilirubin.total [Mass/volume] in Serum or Plasma 0.3-1.0 [facility] C reactive protein [Mass/vol ume] in Serum or PlasmaOrdered By: Nathan Obregon on 12-02-2024 CRP [Mass/Vol] C reactive protein [Mass/volume] in Serum or Plasma High 0.0-0.5 [facility] C-Reactive Proteinon 025 C-Reactive Protein 0.7 mg/dL High 0.0-0.5 [facility] Comment on above: Result Comment: PERF ORMED BY: [facility] [address] [facility] [place] [address] PATHOLOGIST TUBE MACHINE OPERATOR JOE NEWMAN M.D. Performed By: #### C RP, CBC, LIPASE, HEPATIC, BMP ####[facility] [id number] [place] [id number] [facility] COVID Cepheid NegativeOrdere d By: Nathan Obregon on 12-02-2024 SARS-CoV-2 (COVID-19) Ab IA Ql COVID Cepheid Negative [facility] Comment on above: This is a duplicate Cepheid Xpert Xpress CoV-2/Flu/RSV Plus RNA by RT-PCR result to be used for statistical tracking purpose only. COVID-19 / Flu A/B / RSV PCR on 12-02-2024 SARS-CoV-2 (COVID-19) RNA MORGAN+probe Ql (Unsp spec) COVID-19 Cepheid Result Negative for SARS-CoV-2 RNA by RT-PCR Flu A Cepheid Result Negative for Flu A RNA by RT-PCR Flu B Cepheid Result Negative for Flu B RNA by RT-PCR RSV Cepheid Result Negative for RSV RNA by RT-PCR COVID19 Blank Space -------- Reference: Negative COVID19 Blank Space -------- Cepheid Disclaimer The Cepheid Xpert Xpress CoV-2/Flu/RSV Plus has Cepheid Disclaimer not been FDA cleared or approved; this test has Cepheid Disclaimer been authorized by FDA under an EUA for use by Cepheid Disclaimer authorized laboratories; this test has been Cepheid Disclaimer authorized only for the simultaneous qualitative Cepheid Disclaimer detection and differentiation of nucleic acids from Cepheid Disclaimer SARS-CoV-2, influenza A, influenza B, and Cepheid Disclaimer respiratory syncytial virus (RSV), and not for any Cepheid Disclaimer other viruses or pathogens; and this test is only Cepheid Disclaimer authorized for the duration of the declaration that Cepheid Disclaimer circumstances exist justifying the authorization of Cepheid Disclaimer emergency use of in vitro diagnostic tests for Cepheid Disclaimer detection and/or diagnosis of COVID-19 under Cepheid Disclaimer Section 564(b)(1) of the Act, 21 U.S.C. 360bbb- Cepheid Disclaimer 3(b)(1), unless the authorization is terminated or Cepheid Disclaimer revoked sooner. PERFORMED BY: [place] [address] PATHOLOGIST TUBE MACHINE OPERATOR JOE Rosales [facility] Comment on above: Performed By: #### C OVID19 FLU RSV, CEPHEID NEG #### [address] abdomen pelvis w conon CT abdomen pelvis w con [facility] [place] [address] [place] [address] CT Scan Report Signed Patient: William Hernandez MR#: [id number] 40 : 1995 Acct:[id number] Age/Sex: 29 / M ADM Date: 12/02/24 Loc: ER Room: Type: [facility] ER Attending Dr: Copies to: Nathan Obregon Jr, MD Ordering Provider: Nathan Obregon Jr, MD Date of Service: 12/02/24 CT/CT abdomen pelvis w con: abdom pain hx crohns CT Abdomen and Pelvis withcontrast TECHNIQUE: Axial imaging with 2-D reconstruction.90 cc of Isovue-300. The CT exam was performed using one or more the following dose reduction techniques: Automated exposure control, adjustment of the MA and/or Kv according to patient size, or use of the iterative reconstruction technique. COMPARISON: None History: Generalized abdominal pain. History of Crohn's disease LIMITATIONS: None LOWER THORAX Unremarkable LIVER: Unremarkable GALLBLADDER: No gallbladder abnormality identified. BILE DUCTS: No dilatation SPLEEN: Unremarkable PANCREAS: Unremarkable ADRENAL GLANDS: Unremarkable KIDNEYS:Unremarkable AORTA: No abdominal aortic aneurysm identified. RETROPERITONEUM: No significant retroperitoneal abnormalities identified. MESENTERY:Unremarkable SMALL BOWEL: Right bowel surgery changes. No bowel obstruction APPENDIX: The appendix is not seen. No pericecal inflammatory changes identified. COLON: Partial right colectomy URINARY BLADDER: Urinary bladder is unremarkable. REPRODUCTIVE SYSTEM: Reproductive structures are unremarkable. PNEUMOPERITONEUM: None PERITONEAL FLUID:None BONY STRUCTURES: Unremarkable ABDOMINAL WALL: Unremarkable CT/CT abdomen pelvis w con IMPRESSION: No acute abdominal or pelvic findings. No bowel obstruction. Impression dictated by: Burak Araiza M.D.12/02/2024 11:09 PM Dictation Location: [facility]--20 Transcribed By: [facility] 12/02/242308 Dictated By: Burak Araiza DO 12/02/242303 Signed By: 12/02/242308 Normal [facility] Calcium [Mass/volume] in Ser um or PlasmaOrdered By: PROVIDER TEMP on 12-02-2024 Calcium [Mass/Vol] Calcium [Mass/volume ] in Serum or Plasma 8.6-10.3 [facility] Carbon dioxide, total [Moles /volume] in Serum or PlasmaOrdered By: PROVIDER TEMP on 12-02-2024 CO2 [Moles/Vol] Carbon dioxide, tota l [Moles/volume] in Serum or Plasma 21.0-31.0 [facility] Cepheid COVID PCR Negativeon 12-02-2024 SARS-CoV-2 (COVID-19) RNA MORGAN+probe Ql (Unsp spec) Negative Normal Negative [facility] Comment on above: Result Comment: This is a duplicate Cepheid Xpert Xpress CoV-2/Flu/RSV Plus RNA by RT-PCR result to be used for statistical tracking purpose only. PERFORMED BY: [place] [address] PATHOLOGIST TUBE MACHINE OPERATOR JOE NEWMAN M.D. Performed By: #### C OVID19 FLU RSV, CEPHEID NEG #### [address] Chloride [Moles/volume] in S denise or PlasmaOrdered By: PROVIDER TEMP on 12-02-2024 Chloride [Moles/Vol] Chloride [Moles/vol ume] in Serum or Plasma High 98-107 [facility] Complete Blood Count Auto Di ffon 12-02-2024 Basophils (Bld) [#/Vol] 0.1 10*3/uL Normal 0.0-0.2 [facility] Comment on above: Result Comment: PERF ORMED BY: [place] [address] PATHOLOGIST TUBE MACHINE OPERATOR JOE NEWMAN M.D. Performed By: #### C RP, CBC, LIPASE, HEPATIC, BMP #### [address] Basophils/100 WBC (Bld) 0.9 % Normal . [facility] Comment on above: Performed By: #### C RP, CBC, LIPASE, HEPATIC, BMP #### [address] Eosinophils (Bld) [#/Vol] 0.1 10*3/uL Normal 0.0-0.45 [facility] Comment on above: Performed By: #### C RP, CBC, LIPASE, HEPATIC, BMP #### [address] Eosinophils/100 WBC (Bld) 1.0 % Normal . [facility] Comment on above: Performed By: #### C RP, CBC, LIPASE, HEPATIC, BMP #### [address] Erythrocyte distribution width (RBC) [Ratio] 14.0 % Normal 12.0-14.8 [facility] Comment on above: Performed By: #### C RP, CBC, LIPASE, HEPATIC, BMP #### [address] Hematocrit (Bld) [Volume fraction] 39.5 % Normal 38.8-50.0 [facility] Comment on above: Performed By: #### C RP, CBC, LIPASE, HEPATIC, BMP #### [address] Hemoglobin (Bld) [Mass/Vol] 13.2 g/dL Normal 13.0-17.0 [facility] Comment on above: Performed By: #### C RP, CBC, LIPASE, HEPATIC, BMP #### [place] [id number] [place] Lymphocytes (Bld) [#/Vol] 1.7 10*3/uL Normal 1.00-4.8 [facility] Comment on above: Performed By: #### C RP, CBC, LIPASE, HEPATIC, BMP #### [address] Lymphocytes/100 WBC (Bld) 23.2 % Normal . [facility] Comment on above: Performed By: #### C RP, CBC, LIPASE, HEPATIC, BMP #### [address] MCH (RBC) [Entitic mass] 29.1 pg Normal 27.5-35.2 [facility] Comment on above: Performed By: #### C RP, CBC, LIPASE, HEPATIC, BMP #### [address] MCV (RBC) [Entitic vol] 87.5 fL Normal 83.5-101 [facility] Comment on above: Performed By: #### C RP, CBC, LIPASE, HEPATIC, BMP #### [address] Mean Corpuscular HGB Conc 33.3 g/dL Normal 32.5-35.6 [facility] Comment on above: Performed By: #### C RP, CBC, LIPASE, HEPATIC, BMP #### [address] Monocytes (Bld) [#/Vol] 0.6 10*3/uL Normal 0.0-0.8 [facility] Comment on above: Performed By: #### C RP, CBC, LIPASE, HEPATIC, BMP #### [place] [address] [place] Monocytes/100 WBC (Bld) 16.96 % Normal 0.00-20.00 [facility] Comment on above: Performed By: #### C RP, CBC, LIPASE, HEPATIC, BMP #### [place] [address] [place] Monocytes/100 WBC (Bld) 8.3 % Normal . [facility] Comment on above: Performed By: #### C RP, CBC, LIPASE, HEPATIC, BMP #### [address] Neutrophils (Bld) [#/Vol] 4.8 10*3/uL Normal 1.8-7.7 [facility] Comment on above: Performed By: #### C RP, CBC, LIPASE, HEPATIC, BMP #### [address] Neutrophils/100 WBC (Bld) 66.6 % Normal . [facility] Comment on above: Performed By: #### C RP, CBC, LIPASE, HEPATIC, BMP #### [address] NRBC% 0.1 /100{WBC} Normal 0-0.5 [facility] Comment on above: Performed By: #### C RP, CBC, LIPASE, HEPATIC, BMP #### [address] Platelet mean volume (Bld) [Entitic vol] 7.1 fL Normal 6.6-10.1 [facility] Comment on above: Performed By: #### C RP, CBC, LIPASE, HEPATIC, BMP #### [address] Platelets (Bld) [#/Vol] 335 10*3/uL Normal 150-450 [facility] Comment on above: Performed By: #### C RP, CBC, LIPASE, HEPATIC, BMP #### [address] RBC (Bld) [#/Vol] 4.52 10*6/uL Normal 3.90-5.60 [facility] Comment on above: Performed By: #### C RP, CBC, LIPASE, HEPATIC, BMP #### [address] WBC (Bld) [#/Vol] 7.2 10*3/uL Normal 4.1-10.5 [facility] Comment on above: Performed By: #### C RP, CBC, LIPASE, HEPATIC, BMP #### [facility] [address] [place] [id number] [facility] Creatinine [Mass/volume] in Serum or PlasmaOrdered By: PROVIDER TEMP on 12-02-2024 Creatinine [Mass/Vol] Creatinine [Mass/volume] in Serum or Plasma Low 0.70-1.30 [facility] Eosinophils Auto (Bld) [#/Vo l]Ordered By: PROVIDER TEMP on 12-02-2024 Eosinophils (Bld) [#/Vol] Automated eosinophil count 0.0-0.45 [facility] Eosinophils/100 WBC Auto (Bl d)Ordered By: PROVIDER TEMP on 12-02-2024 Eosinophils/100 WBC (Bld) Automated eosinophil % . [facility] Erythrocyte Sedimentation Ra cristóbal 12-02-2024 ESR (Bld) [Velocity] 27 mm/h High 0-14 [facility] Comment on above: Result Comment: PERF ORMED BY: [address] [place] [address] PATHOLOGIST TUBE MACHINE OPERATOR JOE NEWMAN M.D. Performed By: #### E SR #### [facility] [address] Erythrocyte distribution wid th Auto (RBC) [Ratio]Ordered By: PROVIDER TEMP on 12-02-2024 Erythrocyte distribution width (RBC) [Ratio] Erythrocyte distribution width [Ratio] by Automated count 12.0-14.8 [facility] Erythrocyte sedimentation ra te by Photometric methodOrdered By: Nathan Obregon on 12-02-2024 ESR Photometric method (Bld) [Velocity] Erythrocyte sedimentation rate by Photometric method High 0-14 [facility] Globulin Calc (S) [Mass/Vol] Ordered By: PROVIDER TEMP on 12-02-2024 Globulin (S) [Mass/Vol] Serum globulin measurement by calculation (mass/volume) [facility] Glucose [Mass/volume] in Ser um or PlasmaOrdered By: PROVIDER TEMP on 12-02-2024 Glucose [Mass/Vol] Glucose [Mass/volume ] in Serum or Plasma 70-100 [facility] Comment on above: ADA recommended refe rence rangeRandom Glucose Reference Range is dependent on time and content of last meal. Glucose of more than 200 mg/dL in a nonstressed, ambulatory subject supports the diagnosis of Diabetes Mellitus. Hematocrit Auto (Bld) [Volum e fraction]Ordered By: PROVIDER TEMP on 12-02-2024 Hematocrit (Bld) [Volume fraction] Hematocrit [Volume Fraction] of Blood by Automated count 38.8-50.0 [facility] Hemoglobin [Mass/volume] in BloodOrdered By: PROVIDER TEMP on 12-02-2024 Hemoglobin (Bld) [Mass/Vol] Hemoglobin [Mass/volume] in Blood 13.0-17.0 [facility] Hepatic Panelon 12-02-2024 Albumin [Mass/Vol] 4.2 g/dL Normal 3.5-5.7 [facility] Comment on above: Performed By: #### C RP, CBC, LIPASE, HEPATIC, BMP #### [facility] [address] [place] [address] [place] Albumin/Globulin [Mass ratio] 1.4 {ratio} Normal [facility] Comment on above: Performed By: #### C RP, CBC, LIPASE, HEPATIC, BMP #### [facility] [address] [place] [id number] [place] ALP [Catalytic activity/Vol] 64 U/L Normal 34-104 [facility] Comment on above: Performed By: #### C RP, CBC, LIPASE, HEPATIC, BMP #### [facility] [address] [place] [id number] [place] ALT [Catalytic activity/Vol] 25 U/L Normal 7-52 [facility] Comment on above: Performed By: #### C RP, CBC, LIPASE, HEPATIC, BMP #### [facility] [address] [place] [id number] [place] AST [Catalytic activity/Vol] 14 U/L Normal 13-39 [facility] Comment on above: Performed By: #### C RP, CBC, LIPASE, HEPATIC, BMP #### [facility] [address] [place] [id number] [place] Bilirubin [Mass/Vol] 0.4 mg/dL Normal 0.3-1.0 [facility] Comment on above: Performed By: #### C RP, CBC, LIPASE, HEPATIC, BMP #### [facility] [address] Bilirubin,Indirect 0.3 mg/dL Normal [facility] Comment on above: Performed By: #### C RP, CBC, LIPASE, HEPATIC, BMP #### [facility] [address] Bilirubin.indirect [Mass/Vol] 0.10 mg/dL Normal 0.03-0.18 [facility] Comment on above: Performed By: #### C RP, CBC, LIPASE, HEPATIC, BMP #### [facility] [address] Globulin (S) [Mass/Vol] 3.1 g/dL Normal T [facility] Comment on above: Performed By: #### C RP, CBC, LIPASE, HEPATIC, BMP #### [facility] [address] Protein [Mass/Vol] 7.3 g/dL Normal 6.4-8.9 [facility] Comment on above: Performed By: #### C RP, CBC, LIPASE, HEPATIC, BMP #### [facility] [address] Leukocytes [#/volume] correc venkatesh for nucleated erythrocytes in Blood by Automated counOrdered By: PROVIDER TEMP on 12-02-2024 WBC corrected for nucl RBC Auto (Bld) [#/Vol] Leukocytes [#/volume] corrected for nucleated erythrocytes in Blood by Automated coun 4.1-10.5 [facility] Lipaseon 12-02-2024 Lipase [Catalytic activity/Vol] 44.0 U/L Normal 11.0-82.0 [facility] Comment on above: Result Comment: PERF ORMED BY: [place] [address] PATHOLOGIST TUBE MACHINE OPERATOR JOE NEWMAN M.D. Performed By: #### C RP, CBC, LIPASE, HEPATIC, BMP ####[facility] [address] Lipase [Enzymatic activity/v olume] in Serum or PlasmaOrdered By: PROVIDER TEMP on 12-02-2024 Lipase [Catalytic activity/Vol] Lipase [Enzymatic activity/volume] in Serum or Plasma 11.0-82.0 [facility] Lymphocytes Auto (Bld) [#/Vo l]Ordered By: PROVIDER TEMP on 12-02-2024 Lymphocytes (Bld) [#/Vol] Lymphocytes [#/volume] in Blood by Automated count 1.00-4.8 [facility] Lymphocytes/100 WBC Auto (Bl d)Ordered By: PROVIDER TEMP on 12-02-2024 Lymphocytes/100 WBC (Bld) Lymphocytes/100 leukocytes in Blood by Automated count . [facility] MCH Auto (RBC) [Entitic mass ]Ordered By: PROVIDER TEMP on 12-02-2024 MCH (RBC) [Entitic mass] MCH [Entitic mass] by Automated count 27.5-35.2 [facility] MCHC Auto (RBC) [Mass/Vol]Or dered By: PROVIDER TEMP on 12-02-2024 MCHC (RBC) [Mass/Vol] MCHC [Mass/volume] by Automated count 32.5-35.6 [facility] MCV Auto (RBC) [Entitic vol] Ordered By: PROVIDER TEMP on 12-02-2024 MCV (RBC) [Entitic vol] MCV [Entitic vol ume] by Automated count 83.5-101 [facility] Monocyte distribution width [Entitic volume] in Blood by AutomatedOrdered By: PROVIDER TEMP on 12-02-2024 Monocyte distribution width Auto (Bld) [Entitic vol] Monocyte distribution width [Entitic volume] in Blood by Automated 0.00-20.00 [facility] Monocytes Auto (Bld) [#/Vol] Ordered By: PROVIDER TEMP on 12-02-2024 Monocytes (Bld) [#/Vol] Automated blood monocyte count 0.0-0.8 [facility] Monocytes/100 WBC Auto (Bld) Ordered By: PROVIDER TEMP on 12-02-2024 Monocytes/100 WBC (Bld) Automated monocyte % . [facility] Neutrophils Auto (Bld) [#/Vo l]Ordered By: PROVIDER TEMP on 12-02-2024 Neutrophils (Bld) [#/Vol] Neutrophils [#/volume] in Blood by Automated count 1.8-7.7 [facility] Neutrophils/100 WBC Auto (Bl d)Ordered By: PROVIDER TEMP on 12-02-2024 Neutrophils/100 WBC (Bld) Automated neutrophil % . [facility] No Panel InformationOrdered By: PROVIDER TEMP on 12-02-2024 Estimated GFR (CKD-EPI) > 60.0 mL/Min [facility] Creatinine Clearance (Chem 161.99 [facility] Nucleated erythrocytes [Pres ence] in Blood by Automated countOrdered By: PROVIDER TEMP on 12-02-2024 Nucleated RBC Auto Ql (Bld) Nucleated erythrocytes [Presence] in Blood by Automated count 0-0.5 [facility] Platelet mean volume Auto (B ld) [Entitic vol]Ordered By: PROVIDER TEMP on 12-02-2024 Platelet mean volume (Bld) [Entitic vol] Platelet mean volume [Entitic volume] in Blood by Automated count 6.6-10.1 [facility] Platelets Auto (Bld) [#/Vol] Ordered By: PROVIDER TEMP on 12-02-2024 Platelets (Bld) [#/Vol] Platelets [#/vol ume] in Blood by Automated count 150-450 [facility] Potassium [Moles/volume] in Serum or PlasmaOrdered By: PROVIDER TEMP on 12-02-2024 Potassium [Moles/Vol] Potassium [Moles/volume] in Serum or Plasma 3.5-5.1 [facility] Protein [Mass/volume] in Ser um or PlasmaOrdered By: PROVIDER TEMP on 12-02-2024 Protein [Mass/Vol] Protein [Mass/volume ] in Serum or Plasma 6.4-8.9 [facility] RBC Auto (Bld) [#/Vol]Ordere d By: PROVIDER TEMP on 12-02-2024 RBC (Bld) [#/Vol] Erythrocytes [#/volu me] in Blood by Automated count 3.90-5.60 [facility] Respiratory specimen influen za A virus, influenza B virus, respiratory syncytical virOrdered By: Nathan Obregon on 12-02-2024 SARS-CoV-2 (COVID-19) RNA MORGAN+probe Ql (Unsp spec) Respiratory specimen influenza A virus, influenza B virus, respiratory syncytical vir [facility] Serum or plasma albumin/glob ulin mass ratioOrdered By: PROVIDER TEMP on 12-02-2024 Albumin/Globulin [Mass ratio] Serum or plasma albumin/globulin mass ratio [facility] Serum or plasma anion gap de terminationOrdered By: PROVIDER TEMP on 12-02-2024 Anion gap [Moles/Vol] Serum or plasma an ion gap determination 6.0-15.0 [facility] Serum or plasma non-glucuron idated bilirubin measurement (mass/volume)Ordered By: PROVIDER TEMP on 12-02-2024 Bilirubin.indirect [Mass/Vol] Serum or plasma non-glucuronidated bilirubin measurement (mass/volume) [facility] Sodium [Moles/volume] in Ser um or PlasmaOrdered By: PROVIDER TEMP on 12-02-2024 Sodium [Moles/Vol] Sodium [Moles/volume ] in Serum or Plasma 136-145 [facility] Urea nitrogen [Mass/volume] in Serum or PlasmaOrdered By: PROVIDER TEMP on 12-02-2024 Urea nitrogen [Mass/Vol] Urea nitrogen [Mass/volume] in Serum or Plasma 7-25 [facility] WBC Auto (Bld) [#/Vol]Ordere d By: PROVIDER TEMP on 12-02-2024 WBC (Bld) [#/Vol] Leukocytes [#/volume ] in Blood by Automated count 4.1-10.5 [facility] Ambulatory Visit Summaryon 0 11-25-2024 Ambulatory Visit Summary Ambulatory Visit Summary FRIEND, WILLIAM Powell :1995 Visit Date:11/25/2024 Ambulatory Visit Instructions Your Diagnosis Acute URI BMI 22.0-22.9, adult Former smoker Your Care Team Attending Physician - Casey Carpio MD Primary Care Physician - Casey Carpio MD This Is Your Medications List adalimumab (adalimumab-ryvk 40 mg/0.4 mL subcutaneous kit) Procedures Performed History of colectomy (07/11/2024), Arthroscopy of knee, Cholecystectomy, Epididymal cyst. Discharge Vitals Temperature (Tympanic) 37.1 ???C Heart Rate (Peripheral) 106 Respiratory Rate 18 Blood Pressure 112/74 Height 165 cm Height 65 in Weight 61.6 kg Weight 135.805 lb BMI 22.63 What to do next Scheduled Follow-Up Appointments Monday 3:30 PM EDT With: Casey Carpio MD Where: [place] [id number]- Medications What When Instructions Unchanged adalimumab (adalimumab-ryvk 40 mg/ 0.4 mL subcutaneous kit) Allergies No Known Allergies Problems Ongoing - Any problem that you are currently receiving treatment for. Abdominal pain Acute URI BMI 22.0-22.9, adult BMI 23.0-23.9, adult Chest pain Former smoker History of epididymitis Hospital discharge follow-up Inguinal lymphadenopathy Rash Reactive lymphadenopathy Recurrent UTI Patient Survey You may receive a survey via text or e-mail asking about your office visit. Please share your experience with us by completing your survey. We appreciate your feedback and thank you for choosing us for your care. Normal [facility] Ambulatory Visit Summary Ambulatory Visit Summary FRIENDWILLIAM :1995 Visit Date:11/25/2024 Ambulatory Visit Instructions Your Diagnosis Acute URI BMI 22.0-22.9, adult Former smoker Your Care Team Attending Physician - Casey Carpio MD Primary Care Physician - Casey Carpio MD This Is Your Medications List adalimumab (adalimumab-ryvk 40 mg/0.4 mL subcutaneous kit) Procedures Performed History of colectomy (07/11/2024), Arthroscopy of knee, Cholecystectomy, Epididymal cyst. Discharge Vitals Temperature (Tympanic) 37.1 ???C Heart Rate (Peripheral) 106 Respiratory Rate 18 Blood Pressure 112/74 Height 165 cm Height 65 in Weight 61.6 kg Weight 135.805 lb BMI 22.63 What to do next Scheduled Follow-Up Appointments Monday 3:30 PM EDT With: Casey Carpio MD Where: [address] [address]- Medications What When Instructions Unchanged adalimumab (adalimumab-ryvk 40 mg/ 0.4 mL subcutaneous kit) Allergies No Known Allergies Problems Ongoing - Any problem that you are currently receiving treatment for. Abdominal pain Acute URI BMI 22.0-22.9, adult BMI 23.0-23.9, adult Chest pain Former smoker History of epididymitis Hospital discharge follow-up Inguinal lymphadenopathy Rash Reactive lymphadenopathy Recurrent UTI Patient Survey You may receive a survey via text or e-mail asking about your office visit. Please share your experience with us by completing your survey. We appreciate your feedback and thank you for choosing us for your care. Normal [facility] Family Medicine Office/Clini c Noteon 11-25-2024 Family Medicine Office/Clinic Note Family Medicine Office/Clinic Note Chief Complaint Acute SIck Visit Nausea and upper respiratory symptoms HPI Staff Pt presents today for acute sick visit. N&V for the past 2 days. Diarrhea. Low grade fever today. Denies coughing & congestion. Has tried taking Zofran with no relief. History of Present Illness The patient is a 29-year-old male presenting with nausea and symptoms suggestive of an acute upper respiratory infection. Over the past two days, the patient has experienced nausea and cold symptoms, including cough, for which he has taken nrwx-xes-gdeenxw NyQuil, providing temporary relief. He reports a negative flu and strep test. In addition, the patient has a history of Crohn???s disease, with prior hospitalization for an exacerbation characterized by stomach pain, nausea, vomiting, and diarrhea. There is a suspicion of another possible norovirus infection due to increased local cases. - Discussed using wugk-taf-iqikaqm medications such as DayQuil and NyQuil for symptom relief. - Advised on the use of antiemetics, including Phenergan and Zofran. - Discussed the importance of follow-up care with Gastroenterology for known Crohn???s disease. Review of Systems PHQ Score Initial Depression Screen Score: 0 SCORE Physical Exam Vitals & Measurements T: 37.1 ???C(Tympanic) HR: 106(Peripheral) RR: 18 BP: 112/74 SpO2: 98% HT: 65 in HT: 165 cm WT: 61.6 kg WT: 135.805 lb BMI: 22.63 General: alert, no acute distress ENMT: oral mucosa moist Cardiovascular: Regular rate and rhythm, normal peripheral perfusion Respiratory: Lungs clear to auscultation, respirations non labored Extremities: no deformity, no trauma Neurological: oriented x 4, level of consciousness appropriate for age, CN II-XII intact, motor strength equal & normal bilaterally, speech normal Abdomen: Soft, Non-tender, Non-distended, + Bowel sounds Assessment/Plan 1. Acute URI (J06.9: Acute upper respiratory infection, unspecified) Xdhl-mwv-cwusbnc treatments such as DayQuil and NyQuil, along with prescribed antiemetics, Phenergan, and Zofran, were discussed to manage symptoms. Monitoring symptoms for any escalation requiring further intervention was advised. Ordered: Influenza Type A&B POC 96440 Rapid Strep POC 09293 2. Former smoker (Z87.891: Personal history of nicotine dependence) Please continue to not smoke. 3. Crohn disease (K50.90: Crohn's disease, unspecified, without complications) Crohn???s Disease Acknowledged the history of hospital admission for Crohn???s flares. Reinforced the importance of scheduled follow-up with Gastroenterology and adherence to prior management plans. Orders: famotidine, 20 mg = 1 tab(s), Oral, BID, # 60 tab(s), Refills(s) 0, Pharmacy: [facility], 165, cm, 07/01/24 7:44:00 EDT, Height/Length Dosing, 69.4, kg, 07/01/24 7:44:00 EDT, Weight Dosing 29-year-old male with a history of Crohn???s disease presenting with symptoms of an acute upper respiratory infection and nausea. Primary consideration is an acute upper respiratory infection, with a differential diagnosis that includes norovirus, given local cases. The patient's history of Crohn's disease is considered, though current presentation is less suggestive of an exacerbation. I discussed with the patient the diagnosis of an acute upper respiratory infection and the supportive care measures that we can utilize to alleviate symptoms, including efhc-lim-xkvdkut medications and prescribed antiemetics. I emphasized the significance of continued monitoring of his symptoms and stressed the potential significance of the norovirus due to local occurrences. I reiterated the necessity of follow-up appointments with Gastroenterology to manage his Crohn's disease, emphasizing adherence to treatment protocols and the need for timely attendance at scheduled appointments to prevent future complications. No additional diagnostic studies or immediate interventions were considered necessary at this time, outside those outlined above. The patient was agreeable to the management plan discussed. Follow-up No qualifying data available Problem List/Past Medical History Ongoing Abdominal pain Acute URI BMI 23.0-23.9, adult Chest pain Crohn disease Former smoker History of epididymitis Hospital discharge follow-up Inguinal lymphadenopathy Rash Reactive lymphadenopathy Recurrent UTI Historical No qualifying data Procedure/Surgical History History of colectomy (07/11/2024), Arthroscopy of knee, Cholecystectomy, Epididymal cyst. Medications adalimumab-ryvk 40 mg/0.4 mL subcutaneous kit Allergies No Known Allergies Social History Alcohol Never., 10/15/2024 Substance Abuse Never., 10/15/2024 Tobacco - Denies Tobacco Use, 07/08/2024 Former smoker, quit more than 30 days ago Tobacco Use:. Never Smokeless Tobacco Use:. Cigarettes, Household tobacco concerns: No. Yes, 11/25/2024 Immunizations Vaccine Date Status Comments SA (more content not included)... [facility] Comment on above: Result Comment: Elec tronically Signed By: Christian SAXENA, Casey Nelson\.br\Date and Time Signed: 11/25/24 15:40 EST Provider Letteron 11-25-2024 Provider Letter Provider Letter November 25, 2024 [address] FRIEND [address] [place] [id number] : 1995 To Whom It May Concern, Please excuse above patient from work. Date of Illness: From: _11-25-24 To: 11-26-24 May Return to Work On:11-27-24 Restrictions: _ Comments: _ Sincerely, [place] [address] [facility] Population Healthon 11-18-19 Population [facility] Population Health Case Information Case Priority: None Programs: -- Referral Source: [employer] Referral Reason: Care coordination Case Type: Transition Care Management Risk Score: -- Case Status: Enrolled (November 11, 2024) Date Assigned: November 11, 2024 Assigned By: Adam Jefferson Date Enrolled: November 11, 2024 Assigned Primary Personnel: Adam Jefferson Assigned Secondary Personnel: -- Case Physician: Casey Carpio MD Ongoing Abdominal pain BMI 23.0-23.9, adult Chest pain History of epididymitis Hospital discharge follow-up Inguinal lymphadenopathy Rash Reactive lymphadenopathy Recurrent UTI Historical No qualifying data Procedure/Surgical History History of colectomy (07/11/2024), Arthroscopy of knee, Cholecystectomy, Epididymal cyst. Home Medications [place] 325 mg-5 mg oral tablet, 1 tab(s), Oral, q6hr, PRN ondansetron 4 mg Tab, 4 mg= 1 tab(s), Oral, q6hr, PRN Pepcid 20 mg Tab, 20 mg= 1 tab(s), Oral, BID Allergies No Known Allergies Social History Alcohol Never., 10/15/2024 Substance Abuse Never., 10/15/2024 Tobacco - Denies Tobacco Use, 07/08/2024 Former smoker, quit more than 30 days ago Tobacco Use:., 10/15/2024 Screenings and Assessments 11/11/24 10:26:00 Result Name Value Comment Phone Call Monitoring Consent Agreed to continue call Phone Verification Patient Information Full name, street address and date of verified CM Program Enrollment Provides verbal consent for enrollment Goals and Interventions Care Plan Progress Note TCM#2- Patient reports he is doing 'alright.' Notes abdominal pain 'is not as bad.' He is eating and drinking good. Notes his bowels are moving 'normal.' Denies any urinary issues. Patient states left groin mass was removed by Dr. Taylor on 11/14/24 and that it went good. Denies any issues at this time. No change in sleep pattern noted. Denies need for refills. TCM scheduled 11/21/24. Denies any further quetions or concerns. Communication Events Date: November 18, 2024 Method: Phone call Type: Outbound Duration (min): 2 Outcome: Case discussion Contact Type: Patient Contact Name: FRIENDWILLIAM Notes: TCM#2- See TCM note. Created By: Adam Jefferson Date: November 11, 2024 Method: Phone call Type: Inbound Duration (min): 10 Outcome: Case discussion Contact Type: Patient Contact Name: WILLIAM HERNANDEZ Notes: TCM#1- See TCM note. Created By: Adam Jefferson [facility] Population Health Population Health Case Information Case Priority: None Programs: -- Referral Source: [employer] Referral Reason: Care coordination Case Type: Transition Care Management Risk Score: -- Case Status: Enrolled (November 11, 2024) Date Assigned: November 11, 2024 Assigned By: Adam Jefferson Date Enrolled: November 11, 2024 Assigned Primary Personnel: Adam Jefferson Assigned Secondary Personnel: -- Case Physician: Casey Carpio MD Ongoing Abdominal pain BMI 23.0-23.9, adult Chest pain History of epididymitis Hospital discharge follow-up Inguinal lymphadenopathy Rash Reactive lymphadenopathy Recurrent UTI Historical No qualifying data Procedure/Surgical History History of colectomy (07/11/2024), Arthroscopy of knee, Cholecystectomy, Epididymal cyst. Home Medications [place] 325 mg-5 mg oral tablet, 1 tab(s), Oral, q6hr, PRN ondansetron 4 mg Tab, 4 mg= 1 tab(s), Oral, q6hr, PRN Pepcid 20 mg Tab, 20 mg= 1 tab(s), Oral, BID Allergies No Known Allergies Social History Alcohol Never., 10/15/2024 Substance Abuse Never., 10/15/2024 Tobacco - Denies Tobacco Use, 07/08/2024 Former smoker, quit more than 30 days ago Tobacco Use:., 10/15/2024 Screenings and Assessments 11/11/24 10:26:00 Result Name Value Comment Phone Call Monitoring Consent Agreed to continue call Phone Verification Patient Information Full name, street address and date of verified CM Program Enrollment Provides verbal consent for enrollment Goals and Interventions Care Plan Progress Note Admit Date: 11/05/24 Date of Discharge: 11/08/24 Clyde Abarca Follow-up appointment scheduled? yes- 11/21/24 with PCP Did you understand your discharge instructions? yes Are you able to follow them? yes Did you receive new medications? yes, 'a steroid' can't recall name of it Have you filled the Rx's? yes Are you taking them as prescribed? yes Are you having difficulty eating or swallowing your pills? no Are you having any stomach upset, diarrhea or constipation? no How are you sleeping? 'okay' Are you having any pain? abdominal pain is still there, 'not as bad' Do you have everything you need at home to care for yourself? yes Do you have Home Health? no Patient called in to provide update on d/c status. No d/c summary available at time of call (records have been requested). Readmission risk not available. Reviewed d/c instructions and dx of: abdominal pain, Crohn's. Patient reports he received a new prescription for a steroid. Reviewed purpose and side effects of new medicine with patient. Patient reports the pain is still there but a little bit better. Patient states he is not eating much. Notes he is trying his best to stay away from certain foods, such as; nuts, grains, and fresh fruits/vegetables. Notes he is eating more yogurt. [place] diet reviewed. Patient states he has been drinking ensure on occasion and drinking propel mirza. Patient denies any bowel or urinary issues. Patient reports he is scheduled to have cyst removed this . Notes cyst is located just above his 'private area.' Patient notes he has a follow up GI this Monday in [place]. Patient notes he was placed off work for 1 week. Patient is currently scheduled with PCP for TCM 09/20/25, medications will need to be reconciled at time of OV and patient to bring any needed paperwork to appointment. CN explained Transitional Care Management Program to patient and gave CN contact number. Patient denies any further questions or concerns. Communication Events Date: November 11, 2024 Method: Phone call Type: Outbound Duration (min): 10 Outcome: Case discussion Contact Type: Patient Contact Name: FRIEND, WILLIAM Powell Notes: TCM#1- See TCM note. Created By: Adam Jefferson Please note TCM is scheduled 09/20/25. [facility] 11-14-2024 L --- Specimen: [id number] Received: 11/14/24120 Status: ROSIE Gómez Num: [id number] Spec Type: Surgical Subm Dr: Brooklyn Taylor MD Tissues: A Soft Tissue Mass - Biopsy (LEFT GROIN MASS) B Soft Tissue Mass - Biopsy (RIGHT GROIN MASS) Procedures: HAZEL, Gross/Micro L5/2 Age/ Patient Sex Location Account Attending Physician [place] Hernandez 29[place] [id number] Brooklyn Taylor MD SPEC NUM: [id number] RECD: 11/14/24 STATUS: ROSIE GÓMEZ NUM: [id number] SHERWIN: 11/14/24 [facility] DR: Brooklyn Taylor MD ENTERED: 11/14/[address] [facility] [address]: ZACHARY TYPE: Surgical DEPT: S ENTERED BY: [id number] RECV BY: [id number] ORDERED: , Gross/Micro L5/2 ORDERED: , Gross/Micro L5/2 Pathological Diagnosis A, soft tissue, left groin, excision: -Large ovoid fragment of the lobulated mature adipocytes showing patchy fibrous membranous external surfaces, consistent with the excision of benign lipoma B, soft tissue, right groin, excision: -Large ovoid fragment of the lobulated mature adipocytes showing patchy external fibrous membranous surfaces, consistent with excision of the benign lipoma Clinical Information Bilateral groin masses Gross Description Part A is received in formalin labeled with the patients name, date of , and L groin mass is an ovoid portion of encapsulated adipose tissue, 2 x 1.5 x 0.6 cm. The capsular surface is moreau-pink, membranous, smooth and glistening with focal adhesions. The specimen is inked black, and sectioned to reveal yellow-moreau, glistening, uniform cut surfaces. The specimen is entirely submitted in a single cassette. (1, ns, [id number]) Part B is received in formalin labeled with the patients name, date of , and R groin mass is an ovoid portion of encapsulated adipose tissue, 2 x 1.5 x 0.9 cm. The capsular surface is moreau-pink, membranous, smooth and glistening with focal adhesions. The specimen Specimen: [id number] Received: 11/14/24 Status: ROSIE Delfina Num: [id number] Spec Type: Surgical Subm Dr: Brooklyn Taylor MD Tissues: A Soft Tissue Mass - Biopsy (LEFT GROIN MASS) B Soft Tissue Mass - Biopsy (RIGHT GROIN MASS) Procedures: HE/Vira, Gross/Micro L5/2 Patient: William Hernandez [id number] (Continued) Specimen: [id number] Received: 11/14/24 (Continued) Gross Description (Continued) Signed (signature on file) Tammi Anaya MD 11/15/24 1501 Specimen: [id number] Received: 11/14/24 Status: ROSIE Gómez Num: [id number] Spec Type: Surgical Subm Dr: Brooklyn Taylor MD Tissues: A Soft Tissue Mass - Biopsy (LEFT GROIN MASS) B Soft Tissue Mass - Biopsy (RIGHT GROIN MASS) Procedures: HAZEL/Vira, Gross/Micro L5/2 Patient: William Hernandez [id number] (Continued) Specimen: [id number] Received: 11/14/24 (Continued) Gross Description (Continued) is inked black, and sectioned to reveal yellow-moreau, glistening, uniform cut surfaces. Shearer Operator sections are submitted in a single cassette. (1, , [id number] B) Microscopic Description Microscopic examinations are performed supporting the above interpretation CPT Codes 17019p9 Specimen: [id number] Received: 11/14/24 Status: ROSIE Gómez Num: [id number] Spec Type: Surgical Subm Dr: Brooklyn Taylor MD Tissues: A Soft Tissue Mass - Biopsy (LEFT GROIN MASS) B Soft Tissue Mass - Biopsy (RIGHT GROIN MASS) Procedures: HE/Vira, Gross/Micro L5/2 Patient: William Hernandez [id number] (Continued) Signed (signature on file) Chin-Tomy Anaya MD 11/15/24 1501 Normal [facility] CBC AND AUTO DIFFon 11-08-19 25 ABSOLUTE BASOPHIL 0.0 X10E9/L Normal 0.0-0.2 [facility] Comment on above: Performed By: #### C RICKI [facility], 85107-6 #### [facility] ([id number]) [address] [place] [address] 46133 ABSOLUTE NEUTROPHIL 11.2 X10E9/L High 1.5-6.6 [facility] Comment on above: Performed By: #### Alvarez ROBISON [facility], 08772-1 #### [facility] ([id number]) [address] [place] [address] 46926 Basophils/100 WBC (Bld) 0.3 % Normal [facility] Comment on above: Performed By: #### C JACKSON ROBISON, 38557-6 #### [facility] ([id number]) [address] [place] [address] 78244 Eosinophils (Bld) [#/Vol] 0.0 10*3/uL Normal 0.0-0.4 [facility] Comment on above: Performed By: #### Alvarez ROBISON CMP, 84978-5 #### [facility] ([id number]) [address] [place] [address] 67638 Eosinophils/100 WBC (Bld) 0.0 % Normal [facility] Comment on above: Performed By: #### Alvarez ROBISON CMP, 29266-9 #### [facility] ([id number]) [address] [place] [address] 44238 Erythrocyte distribution width (RBC) [Ratio] 13.1 % Normal 11.5-15.0 [facility] Comment on above: Performed By: #### C RICKI [facility], #### [facility] ([id number]) [address] [place] [address] 94438 Hematocrit (Bld) [Volume fraction] 37.9 % Low 39-49 [facility] Comment on above: Performed By: #### C RICKI [facility], #### [facility] ([id number]) [address] [place] [address] 48054 Hemoglobin (Bld) [Mass/Vol] 12.5 g/dL Low 13.0-17.0 [facility] Comment on above: Performed By: #### Alvarez ROBISON [facility], #### [facility] ([id number]) [address] [place] [address] 81100 Lymphocytes (Bld) [#/Vol] 0.9 10*3/uL Low 1.0-3.5 [facility] Comment on above: Performed By: #### Alvarez ROBISON [facility], 09000-4 #### [facility] ([id number]) [address] [place] [address] 99403 Lymphocytes/100 WBC (Bld) 6.7 % Normal [facility] Comment on above: Performed By: #### Alvarez ROBISON [facility], 43618-6 #### [facility] ([id number]) [address] [place] [address] 77801 MCH (RBC) [Entitic mass] 28.6 pg Normal 27-34 [facility] Comment on above: Performed By: #### Alvarez ROBISON [facility], #### [facility] ([id number]) [address] [place] [address] 93667 MCHC (RBC) [Mass/Vol] 32.9 g/dL Normal 32-36 [facility] Comment on above: Performed By: #### C JACKSON ROBISON, #### [facility] ([id number]) [address] [place] [address] 81523 MCV (RBC) [Entitic vol] 87 fL Normal 80-100 [facility] Comment on above: Performed By: #### Alvarez ROBISON CMP, #### [facility] ([id number]) [address] [place] [address] 97961 Monocytes (Bld) [#/Vol] 0.8 10*3/uL Normal 0-0.9 [facility] Comment on above: Performed By: #### Alvarez ROBISON CMP, 67104-1 #### [facility] ([id number]) [address] [place] [address] 15793 Monocytes/100 WBC (Bld) 6.1 % Normal [facility] Comment on above: Performed By: #### Alvarez ROBISON CMP, 83332-6 #### [facility] ([id number]) [address] [place] [address] 70038 Neutrophils/100 WBC (Bld) 86.9 % Normal [facility] Comment on above: Performed By: #### Alvarez ROBISON CMP, #### [facility] ([id number]) [address] [place] [address] 41612 Platelet mean volume (Bld) [Entitic vol] 7.6 fL Normal 7-12 [facility] Comment on above: Performed By: #### Alvarez ROBISON CMP, #### [facility] ([id number]) [address] [place] [address] 40597 Platelets (Bld) [#/Vol] 367 10*3/uL Normal 150-450 [facility] Comment on above: Performed By: #### Alvarez ROBISON CMP, 61500-3 #### [facility] ([id number]) [address] [place] [address] 60408 RBC COUNT 4.36 X10E12/L Normal 4.10-5.70 [facility] Comment on above: Performed By: #### C BCA, CMP, 30555-8 #### [facility] ([id number]) [address] [place] [address] 78504 WBC (Bld) [#/Vol] 12.9 10*3/uL High 4.0-11.0 [facility] Comment on above: Performed By: #### C BCA, CMP, 37079-4 #### [facility] ([id number]) [address] [place] [address] 36335 COMPREHENSIVE METABOLIC PANE Jesús 11-08-2024 Albumin [Mass/Vol] 3.9 g/dL Normal 3.2-5.3 [facility] Comment on above: Performed By: #### C BCA, CMP, 66001-2 #### [facility] ([id number]) [address] [place] [address] 46911 ALP [Catalytic activity/Vol] 64 U/L Normal 39-130 [facility] Comment on above: Performed By: #### C BCA, CMP, 98647-2 #### [facility] ([id number]) [address] [place] [address] 42323 ALT [Catalytic activity/Vol] 13 U/L Normal 0-40 [facility] Comment on above: Performed By: #### C BCA, CMP, 21965-0 #### [facility] ([id number]) [address] [place] [address] 42833 Anion gap [Moles/Vol] 6 mmol/L Normal 5-15 [facility] Comment on above: Performed By: #### C BCA, CMP, 67854-6 #### [facility] ([id number]) [address] [place] [address] 41794 AST [Catalytic activity/Vol] 12 U/L Normal 0-41 [facility] Comment on above: Performed By: #### C BCA, CMP, 82322-0 #### [facility] ([id number]) [address] [place] [address] 53695 Bilirubin [Mass/Vol] 0.3 mg/dL Normal 0.3-1.2 [facility] Comment on above: Performed By: #### C BCA, CMP, 35991-5 #### [facility] ([id number]) [address] [place] [address] 82905 Calcium [Mass/Vol] 9.0 mg/dL Normal 8.5-10.5 [facility] Comment on above: Performed By: #### C RICKI, CMP, 21992-2 #### [facility] ([id number]) [address] [place] [address] 54520 Chloride [Moles/Vol] 105 mmol/L Normal 98-109 [facility] Comment on above: Performed By: #### C BCA, CMP, 52727-9 #### [facility] ([id number]) [address] [place] [address] 64869 CO2 [Moles/Vol] 24 mmol/L Normal 22-32 [facility] Comment on above: Performed By: #### C BCA, CMP, 29432-1 #### [facility] ([id number]) [address] [place] [address] 66581 Creatinine [Mass/Vol] 0.70 mg/dL Normal 0.70-1.20 [facility] Comment on above: Result Comment: METH OD TRACEABLE TO IDMS STANDARD Performed By: #### C RICKI, CMP, 10636-8 #### [facility] ([id number]) [address] [place] [address] 33019 eGFR (CKD-EPI) NON-RACE DEPENDENT >90 Normal >59 [facility] Comment on above: Result Comment: Reported eGFR is based on the CKD-EPI 2020 equation that does not use a race coefficient. Performed By: #### C JACKSON ROBISON, 11068-8 #### [facility] ([id number]) [address] [place] [address] 87993 Glucose [Mass/Vol] 132 mg/dL High 65-99 [facility] Comment on above: Performed By: #### C JACKSON ROBISON, #### [facility] ([id number]) [address] [place] [address] 66347 Potassium [Moles/Vol] 4.2 mmol/L Normal 3.5-5.0 [facility] Comment on above: Performed By: #### C JACKSON ROBISON, #### [facility] ([id number]) [address] [place] [address] 43370 Protein [Mass/Vol] 7.1 g/dL Normal 6.0-8.0 [facility] Comment on above: Performed By: #### C RICKI [facility], 30224-9 #### [facility] ([id number]) [address] [place] [address] 37400 Sodium [Moles/Vol] 135 mmol/L Normal 134-146 [facility] Comment on above: Performed By: #### C JACKSON ROBISON, 66719-6 #### [facility] ([id number]) [address] [place] [address] 82849 Urea nitrogen [Mass/Vol] 20 mg/dL Normal 5-23 [facility] Comment on above: Performed By: #### C JACKSON ROBISON, 02982-2 #### [facility] ([id number]) [address] [place] [address] 61052 MAGNESIUMon 11-08-2024 Magnesium [Mass/Vol] 2.0 mg/dL Normal 1.8-2.6 [facility] Comment on above: Performed By: #### C JACKSON ROBISON, #### [facility] ([id number]) [address] [place] [address] 30032 CBC AND AUTO DIFFon 11-07-19 ABSOLUTE BASOPHIL 0.0 X10E9/L Normal 0.0-0.2 [facility] Comment on above: Performed By: #### C RICKI, CMP, ####[facility] ([id number])[address] [place] [address] 96223 ABSOLUTE NEUTROPHIL 10.7 X10E9/L High 1.5-6.6 [facility] Comment on above: Performed By: #### Alvarez ROBISON CMP, ####[facility] ([id number])[address] [place] [address] 35253 Basophils/100 WBC (Bld) 0.4 % Normal [facility] Comment on above: Performed By: #### Alvarez ROBISON [facility], ####[facility] ([id number])[address] [place] [address] 67081 Eosinophils (Bld) [#/Vol] 0.0 10*3/uL Normal 0.0-0.4 [facility] Comment on above: Performed By: #### Alvarez ROBISON CMP, ####[facility] ([id number])[address] [place] [address] 95579 Eosinophils/100 WBC (Bld) 0.0 % Normal [facility] Comment on above: Performed By: #### C RICKI, CMP, ####[facility] ([id number])[address] [place] [address] 50687 Erythrocyte distribution width (RBC) [Ratio] 13.0 % Normal 11.5-15.0 [facility] Comment on above: Performed By: #### C JACKSON ROBISON, ####[facility] ([id number])[address] [place] [address] 23597 Hematocrit (Bld) [Volume fraction] 38.6 % Low 39-49 [facility] Comment on above: Performed By: #### Alvarez ROBISON CMP, ####[facility] ([id number])[address] [place] [address] 19083 Hemoglobin (Bld) [Mass/Vol] 12.9 g/dL Low 13.0-17.0 [facility] Comment on above: Performed By: #### Alvarez ROBISON CMP, ####[facility] ([id number])[address] [place] [address] 32682 Lymphocytes (Bld) [#/Vol] 0.8 10*3/uL Low 1.0-3.5 [facility] Comment on above: Performed By: #### Alvarez ROBISON CMP, ####[facility] ([id number])[address] [place] [address] 52175 Lymphocytes/100 WBC (Bld) 7.1 % Normal [facility] Comment on above: Performed By: #### Alvarez ROBISON CMP, ####[facility] ([id number])[address] [place] [address] 09508 MCH (RBC) [Entitic mass] 28.9 pg Normal 27-34 [facility] Comment on above: Performed By: #### Alvarez ROBISON CMP, ####[facility] ([id number])[address] [place] [address] 49772 MCHC (RBC) [Mass/Vol] 33.5 g/dL Normal 32-36 [facility] Comment on above: Performed By: #### Alvarez ROBISON CMP, ####[facility] ([id number])[address] [place] [address] [place] [address] MCV (RBC) [Entitic vol] 86 fL Normal 80-100 [facility] Comment on above: Performed By: #### Alvarez ROBISON CMP, ####[facility] ([id number])[address] [place] [address] 65379 Monocytes (Bld) [#/Vol] 0.2 10*3/uL Normal 0-0.9 [facility] Comment on above: Performed By: #### Alvarez ROBISON CMP, ####[facility] ([id number])[address] [place] [address] 18453 Monocytes/100 WBC (Bld) 1.4 % Normal [facility] Comment on above: Performed By: #### Alvarez ROBISON [facility], ####[facility] ([id number])[address] [place] [address] 12141 Neutrophils/100 WBC (Bld) 91.1 % Normal [facility] Comment on above: Performed By: #### Alvarez ROBISON [facility], ####[facility] ([id number])[address] [place] [address] 81995 Platelet mean volume (Bld) [Entitic vol] 7.0 fL Normal 7-12 [facility] Comment on above: Performed By: #### Alvarez ROBISON CMP, ####[facility] ([id number])[address] [place] [address] 08654 Platelets (Bld) [#/Vol] 348 10*3/uL Normal 150-450 [facility] Comment on above: Performed By: #### Alvarez ROBISON CMP, ####[facility] ([id number])[address] [place] [address] 25179 RBC COUNT 4.47 X10E12/L Normal 4.10-5.70 [facility] Comment on above: Performed By: #### C RICKI, CMP, 12925-2 ####[facility] ([id number])[address] [place] [address] 85888 WBC (Bld) [#/Vol] 11.7 10*3/uL High 4.0-11.0 [facility] Comment on above: Performed By: #### C BCA, CMP, ####[facility] ([id number])[address] [place] [address] 53823 COMPREHENSIVE METABOLIC PANE Jesús 11-07-2024 Albumin [Mass/Vol] 3.9 g/dL Normal 3.2-5.3 [facility] Comment on above: Performed By: #### C RICKI, CMP, ####[facility] ([id number])[address] [place] [address] 81512 ALP [Catalytic activity/Vol] 64 U/L Normal 39-130 [facility] Comment on above: Performed By: #### C BCA, CMP, 44795-5 ####[facility] ([id number])[address] [place] [address] 15189 ALT [Catalytic activity/Vol] 15 U/L Normal 0-40 [facility] Comment on above: Performed By: #### C BCA, CMP, 65582-4 ####[facility] ([id number])[address] [place] [address] 69315 Anion gap [Moles/Vol] 7 mmol/L Normal 5-15 [facility] Comment on above: Performed By: #### C BCA, CMP, 54695-3 ####[facility] ([id number])[address] [place] [address] 49844 AST [Catalytic activity/Vol] 19 U/L Normal 0-41 [facility] Comment on above: Performed By: #### C RICKI [facility], 85816-2 ####[facility] ([id number])[address] [place] [address] 30117 Bilirubin [Mass/Vol] 0.7 mg/dL Normal 0.3-1.2 [facility] Comment on above: Performed By: #### C RICKI [facility], ####[facility] ([id number])[address] [place] [address] 73142 Calcium [Mass/Vol] 9.8 mg/dL Normal 8.5-10.5 [facility] Comment on above: Performed By: #### C RICKI [facility], ####[facility] ([id number])[address] [place] [address] 76502 Chloride [Moles/Vol] 103 mmol/L Normal 98-109 [facility] Comment on above: Performed By: #### Alvarez ROBISON [facility], 05780-8 ####[facility] ([id number])[address] [place] [address] 51618 CO2 [Moles/Vol] 26 mmol/L Normal 22-32 [facility] Comment on above: Performed By: #### Alvarez ROBISON [facility], 65269-5 ####[facility] ([id number])[address] [place] [address] 17913 Creatinine [Mass/Vol] 0.65 mg/dL Low 0.70-1.20 [facility] Comment on above: Result Comment: METH OD TRACEABLE TO IDMS STANDARD Performed By: #### C JACKSON ROBISON, 26292-3 ####[facility] ([id number])[address] [place] [address] 45741 eGFR (CKD-EPI) NON-RACE DEPENDENT >90 Normal >59 [facility] Comment on above: Result Comment: Reported eGFR is based on the CKD-EPI 2021 equation that does not use a race coefficient. Performed By: #### C RICKI, CMP, ####[facility] ([id number])[address] [place] [address] 64542 Glucose [Mass/Vol] 149 mg/dL High 65-99 [facility] Comment on above: Performed By: #### C BCA, CMP, ####[facility] ([id number])[address] [place] [address] 78602 Potassium [Moles/Vol] 4.7 mmol/L Normal 3.5-5.0 [facility] Comment on above: Performed By: #### C RICKI, CMP, ####[facility] ([id number])[address] [place] [address] 28780 Protein [Mass/Vol] 7.5 g/dL Normal 6.0-8.0 [facility] Comment on above: Performed By: #### C BCA, CMP, ####[facility] ([id number])[address] [place] [address] 17676 Sodium [Moles/Vol] 136 mmol/L Normal 134-146 [facility] Comment on above: Performed By: #### C RICKI, CMP, 53565-8 ####[facility] ([id number])[address] [place] [address] 95174 Urea nitrogen [Mass/Vol] 16 mg/dL Normal 5-23 [facility] Comment on above: Performed By: #### C BCA, CMP, 01540-7 ####[facility] ([id number])[address] [place] [address] 83518 MAGNESIUMon 11-07-2024 Magnesium [Mass/Vol] 2.0 mg/dL Normal 1.8-2.6 [facility] Comment on above: Performed By: #### C BCA, CMP, ####[facility] ([id number])[address] [place] [address] 60754 CBC AND AUTO DIFFon 11-06-19 25 ABSOLUTE BASOPHIL 0.0 X10E9/L Normal 0.0-0.2 [facility] Comment on above: Performed By: #### C RICKI, CMP, 49712-2 ####[facility] ([id number])[address] [place] [address] 96359 ABSOLUTE NEUTROPHIL 2.9 X10E9/L Normal 1.5-6.6 [facility] Comment on above: Performed By: #### C RICKI, CMP, ####[facility] ([id number])[address] [place] [address] 07677 Basophils/100 WBC (Bld) 0.8 % Normal [facility] Comment on above: Performed By: #### Alvarez BCA, CMP, ####[facility] ([id number])[address] [place] [address] 30693 Eosinophils (Bld) [#/Vol] 0.1 10*3/uL Normal 0.0-0.4 [facility] Comment on above: Performed By: #### C BCA, CMP, ####[facility] ([id number])[address] [place] [address] 92925 Eosinophils/100 WBC (Bld) 1.4 % Normal [facility] Comment on above: Performed By: #### C BCA, CMP, ####[facility] ([id number])[address] [place] [address] 01280 Erythrocyte distribution width (RBC) [Ratio] 12.8 % Normal 11.5-15.0 [facility] Comment on above: Performed By: #### C BCA, CMP, ####[facility] ([id number])[address] [place] [address] Hematocrit (Bld) [Volume fraction] 37.3 % Low 39-49 [facility] Comment on above: Performed By: #### Alvarez ROBISON [facility], ####[facility] ([id number])[address] [place] [address] 17552 Hemoglobin (Bld) [Mass/Vol] 12.2 g/dL Low 13.0-17.0 [facility] Comment on above: Performed By: #### Alvarez ROBISON [facility], ####[facility] ([id number])[address] [place] [address] 12352 Lymphocytes (Bld) [#/Vol] 1.9 10*3/uL Normal 1.0-3.5 [facility] Comment on above: Performed By: #### Alvarez ROBISON [facility], ####[facility] ([id number])[address] [place] [address] 54610 Lymphocytes/100 WBC (Bld) 35.6 % Normal [facility] Comment on above: Performed By: #### Alvarez ROBISON [facility], ####[facility] ([id number])[address] [place] [address] 29616 MCH (RBC) [Entitic mass] 28.7 pg Normal 27-34 [facility] Comment on above: Performed By: #### Alvarez ROBISON [facility], ####[facility] ([id number])[address] [place] [address] 59423 MCHC (RBC) [Mass/Vol] 32.8 g/dL Normal 32-36 [facility] Comment on above: Performed By: #### Alvarez ROBISON CMP, ####[facility] ([id number])[address] [place] [address] 40158 MCV (RBC) [Entitic vol] 87 fL Normal 80-100 [facility] Comment on above: Performed By: #### Alvarez ROBIOSN, CMP, 98834-3 ####[facility] ([id number])[address] [place] [address] 02411 Monocytes (Bld) [#/Vol] 0.5 10*3/uL Normal 0-0.9 [facility] Comment on above: Performed By: #### Alvarez ROBISON, CMP, ####[facility] ([id number])[address] [place] [address] 47419 Monocytes/100 WBC (Bld) 8.4 % Normal [facility] Comment on above: Performed By: #### Alvarez ROBISON, CMP, ####[facility] ([id number])[address] [place] [address] 24066 Neutrophils/100 WBC (Bld) 53.8 % Normal [facility] Comment on above: Performed By: #### Alvarez BCA, CMP, ####[facility] ([id number])[address] [place] [address] 64275 Platelet mean volume (Bld) [Entitic vol] 7.1 fL Normal 7-12 [facility] Comment on above: Performed By: #### Alvarez ROBISON, CMP, ####[facility] ([id number])[address] [place] [address] 92789 Platelets (Bld) [#/Vol] 300 10*3/uL Normal 150-450 [facility] Comment on above: Performed By: #### Alvarez ROBISON, CMP, ####[facility] ([id number])[address] [place] [address] 44896 RBC COUNT 4.27 X10E12/L Normal 4.10-5.70 [facility] Comment on above: Performed By: #### Alvarez BCA, CMP, ####[facility] ([id number])[address] [place] [address] 57665 WBC (Bld) [#/Vol] 5.4 10*3/uL Normal 4.0-11.0 [facility] Comment on above: Performed By: #### C BCA, CMP, 40889-0 ####[facility] ([id number])[address] [place] [address] 31533 COMPREHENSIVE METABOLIC PANE Jesús 11-06-2024 Albumin [Mass/Vol] 3.7 g/dL Normal 3.2-5.3 [facility] Comment on above: Performed By: #### C BCA, CMP, ####[facility] ([id number])[address] [place] [address] 39128 ALP [Catalytic activity/Vol] 59 U/L Normal 39-130 [facility] Comment on above: Performed By: #### C BCA, CMP, ####[facility] ([id number])[address] [place] [address] 79020 ALT [Catalytic activity/Vol] 16 U/L Normal 0-40 [facility] Comment on above: Performed By: #### C BCA, CMP, 11856-8 ####[facility] ([id number])[address] [place] [address] 53014 Anion gap [Moles/Vol] 8 mmol/L Normal 5-15 [facility] Comment on above: Performed By: #### C BCA, CMP, 75738-0 ####[facility] ([id number])[address] [place] [address] 35580 AST [Catalytic activity/Vol] 18 U/L Normal 0-41 [facility] Comment on above: Performed By: #### C BCA, CMP, 67488-8 ####[facility] ([id number])[address] [place] [address] 87483 Bilirubin [Mass/Vol] 1.2 mg/dL Normal 0.3-1.2 [facility] Comment on above: Performed By: #### C RICKI [facility], ####[facility] ([id number])[address] [place] [address] 25533 Calcium [Mass/Vol] 9.1 mg/dL Normal 8.5-10.5 [facility] Comment on above: Performed By: #### C RICKI [facility], ####[facility] ([id number])[address] [place] [address] 45522 Chloride [Moles/Vol] 103 mmol/L Normal 98-109 [facility] Comment on above: Performed By: #### C RICKI [facility], ####[facility] ([id number])[address] [place] [address] 88869 CO2 [Moles/Vol] 26 mmol/L Normal 22-32 [facility] Comment on above: Performed By: #### C RICKI [facility], ####[facility] ([id number])[address] [place] [address] 96373 Creatinine [Mass/Vol] 0.71 mg/dL Normal 0.70-1.20 [facility] Comment on above: Result Comment: METH OD TRACEABLE TO IDMS STANDARD Performed By: #### C RICKI, CMP, ####[facility] ([id number])[address] [place] [address] 19819 eGFR (CKD-EPI) NON-RACE DEPENDENT >90 Normal >59 [facility] Comment on above: Result Comment: Reported eGFR is based on the CKD-EPI 2020 equation that does not use a race coefficient. Performed By: #### C RICKI CMP, ####[facility] ([id number])[address] [place], [place] [address], [place] [address] Glucose [Mass/Vol] 94 mg/dL Normal 65-99 [facility] Comment on above: Performed By: #### C RICKI [facility], ####[facility] ([id number])[address] [place] [address] [place] [address] Potassium [Moles/Vol] 3.5 mmol/L Normal 3.5-5.0 [facility] Comment on above: Performed By: #### C RICKI [facility], ####[facility] ([id number])[address] [place] [address] 52368 Protein [Mass/Vol] 6.9 g/dL Normal 6.0-8.0 [facility] Comment on above: Performed By: #### C RICKI [facility], ####[facility] ([id number])[address] [place] [address] [place] [address] Sodium [Moles/Vol] 137 mmol/L Normal 134-146 [facility] Comment on above: Performed By: #### C RICKI [facility], ####[facility] ([id number])[address] [place] [address] [place] [address] Urea nitrogen [Mass/Vol] 10 mg/dL Normal 5-23 [facility] Comment on above: Performed By: #### C RICKI [facility], ####[facility] ([id number])[address] [place] [address] [place] [address] MAGNESIUMon 11-06-2024 Magnesium [Mass/Vol] 2.3 mg/dL Normal 1.8-2.6 [facility] Comment on above: Performed By: #### 2 823-3, 36643-9 ####[facility] ([id number])[address] [place] [address] [place] [address] Magnesium [Mass/Vol] 1.7 mg/dL Low 1.8-2.6 [facility] Comment on above: Performed By: #### C RICKI [facility], 15445-4 ####[facility] ([id number])[address] [place] [address] 95357 POTASSIUMon 11-06-2024 Potassium [Moles/Vol] 4.6 mmol/L Normal 3.5-5.0 [facility] Comment on above: Performed By: #### 2 823-3 ####[facility] ([id number])[address] [place] [address] 65372 Potassium [Moles/Vol] 3.7 mmol/L Normal 3.5-5.0 [facility] Comment on above: Performed By: #### 2 823-3, 88372-9 ####[facility] ([id number])[address] [place] [address] 35481 CBC AND AUTO DIFFon 11-05-19 ABSOLUTE BASOPHIL 0.0 X10E9/L Normal 0.0-0.2 [facility] Comment on above: Performed By: #### C RICKI [facility], 0-3 #### [facility] ([id number]) [address] [place] [address] 94376 ABSOLUTE NEUTROPHIL 5.5 X10E9/L Normal 1.5-6.6 [facility] Comment on above: Performed By: #### Alvarez ROBISON CMP, 0-3 #### [facility] ([id number]) [address] [place] [address] 59725 Basophils/100 WBC (Bld) 0.6 % Normal [facility] Comment on above: Performed By: #### Alvarez ROBISON CMP, 0-3 #### [facility] ([id number]) [address] [place] [address] 96029 Eosinophils (Bld) [#/Vol] 0.0 10*3/uL Normal 0.0-0.4 [facility] Comment on above: Performed By: #### Alvarez ROBISON CMP, 3039-12 #### [facility] ([id number]) [address] [place] [address] 94944 Eosinophils/100 WBC (Bld) 0.1 % Normal [facility] Comment on above: Performed By: #### Alvarez ROBISON CMP, 3039-12 #### [facility] ([id number]) [address] [place] [address] 18194 Erythrocyte distribution width (RBC) [Ratio] 12.8 % Normal 11.5-15.0 [facility] Comment on above: Performed By: #### Alvarez ROBISON CMP, 3039-12 #### [facility] ([id number]) [address] [place] [address] 36022 Hematocrit (Bld) [Volume fraction] 39.5 % Normal 39-49 [facility] Comment on above: Performed By: #### Alvarez ROBISON CMP, 3039-12 #### [facility] ([id number]) [address] [place] [address] 00441 Hemoglobin (Bld) [Mass/Vol] 13.0 g/dL Normal 13.0-17.0 [facility] Comment on above: Performed By: #### Alvarez ROBISON CMP, 3039-12 #### [facility] ([id number]) [address] [place] [address] 44818 Lymphocytes (Bld) [#/Vol] 1.7 10*3/uL Normal 1.0-3.5 [facility] Comment on above: Performed By: #### Alvarez ROBISON CMP, 3039-12 #### [facility] ([id number]) [address] [place] [address] 18937 Lymphocytes/100 WBC (Bld) 22.0 % Normal [facility] Comment on above: Performed By: #### Alvarez ROBISON CMP, 3040-3 #### [facility] ([id number]) [address] [place] [address] 94672 MCH (RBC) [Entitic mass] 28.6 pg Normal 27-34 [facility] Comment on above: Performed By: #### Alvarez ROBISON CMP, 3039-3 #### [facility] ([id number]) [address] [place] [address] 18482 MCHC (RBC) [Mass/Vol] 32.9 g/dL Normal 32-36 [facility] Comment on above: Performed By: #### Alvarez ROBISON CMP, 3039-12 #### [facility] ([id number]) [address] [place] [address] 00429 MCV (RBC) [Entitic vol] 87 fL Normal 80-100 [facility] Comment on above: Performed By: #### Alvarez ROBISON CMP, 3039-12 #### [facility] ([id number]) [address] [place] [address] 07234 Monocytes (Bld) [#/Vol] 0.5 10*3/uL Normal 0-0.9 [facility] Comment on above: Performed By: #### Alvarez ROBISON CMP, 3039-12 #### [facility] ([id number]) [address] [place] [address] 86841 Monocytes/100 WBC (Bld) 6.1 % Normal [facility] Comment on above: Performed By: #### Alvarez ROBISON, CMP, 3039-12 #### [facility] ([id number]) [address] [place] [address] 35572 Neutrophils/100 WBC (Bld) 71.2 % Normal [facility] Comment on above: Performed By: #### Alvarez ROBISON, CMP, 3 #### [facility] ([id number]) [address] [place] [address] Platelet mean volume (Bld) [Entitic vol] 6.7 fL Low 7-12 [facility] Comment on above: Performed By: #### Alvarez ROBISON CMP, 0-3 #### [facility] ([id number]) [address] [place] [address] 44365 Platelets (Bld) [#/Vol] 348 10*3/uL Normal 150-450 [facility] Comment on above: Performed By: #### Alvarez ROBISON CMP, 3039-3 #### [facility] ([id number]) [address] [place] [address] 80987 RBC COUNT 4.54 X10E12/L Normal 4.10-5.70 [facility] Comment on above: Performed By: #### Alvarez ROBISON CMP, 3039-3 #### [facility] ([id number]) [address] [place] [address] 13587 WBC (Bld) [#/Vol] 7.8 10*3/uL Normal 4.0-11.0 [facility] Comment on above: Performed By: #### Alvarez ROBISON CMP, 3039-3 #### [facility] ([id number]) [address] [place] [address] 81555 COMPREHENSIVE METABOLIC PANE Jesús 11-05-2024 Albumin [Mass/Vol] 4.1 g/dL Normal 3.2-5.3 [facility] Comment on above: Performed By: #### Alvarez ROBISON CMP, 3039-3 #### [facility] ([id number]) [address] [place] [address] 87824 ALP [Catalytic activity/Vol] 68 U/L Normal 39-130 [facility] Comment on above: Performed By: #### Alvarez ROBIOSN CMP, 0-3 #### [facility] ([id number]) [address] [place] [address] 50443 ALT [Catalytic activity/Vol] 14 U/L Normal 0-40 [facility] Comment on above: Performed By: #### C RICKI CMP, 0-3 #### [facility] ([id number]) [address] [place] [address] 57159 Anion gap [Moles/Vol] 9 mmol/L Normal 5-15 [facility] Comment on above: Performed By: #### C RICKI CMP, 3039-3 #### [facility] ([id number]) [address] [place] [address] 29305 AST [Catalytic activity/Vol] 23 U/L Normal 0-41 [facility] Comment on above: Performed By: #### Alvarez ROBISON CMP, 3 #### [facility] ([id number]) [address] [place] [address] 65623 Bilirubin [Mass/Vol] 0.7 mg/dL Normal 0.3-1.2 [facility] Comment on above: Performed By: #### Alvarez BCA, CMP, 3 #### [facility] ([id number]) [address] [place] [address] 17426 Calcium [Mass/Vol] 9.8 mg/dL Normal 8.5-10.5 [facility] Comment on above: Performed By: #### Alvarez BCA, CMP, 3039-3 #### [facility] ([id number]) [address] [place] [address] 82150 Chloride [Moles/Vol] 103 mmol/L Normal 98-109 [facility] Comment on above: Performed By: #### C BCA, CMP, 3039-3 #### [facility] ([id number]) [address] [place] [address] 85036 CO2 [Moles/Vol] 27 mmol/L Normal 22-32 [facility] Comment on above: Performed By: #### Alvarez BCA, CMP, 3039-3 #### [facility] ([id number]) [address] [place] [address] 89117 Creatinine [Mass/Vol] 0.76 mg/dL Normal 0.70-1.20 [facility] Comment on above: Result Comment: METH OD TRACEABLE TO IDMS STANDARD Performed By: #### C JACKSON ROBISON, 3040-3 #### [facility] ([id number]) [address] [place] [address] 50442 eGFR (CKD-EPI) NON-RACE DEPENDENT >90 Normal >59 [facility] Comment on above: Result Comment: Reported eGFR is based on the CKD-EPI 2020 equation that does not use a race coefficient. Performed By: #### C AJCKSON ROBISON, 3039-3 #### [facility] ([id number]) [address] [place] [address] 84065 Glucose [Mass/Vol] 114 mg/dL High 65-99 [facility] Comment on above: Performed By: #### C JACKSON ROBISON, 3 #### [facility] ([id number]) [address] [place] [address] 18188 Potassium [Moles/Vol] 3.6 mmol/L Normal 3.5-5.0 [facility] Comment on above: Performed By: #### Alvarez ROBISNO CMP, 3039-3 #### [facility] ([id number]) [address] [place] [address] 43045 Protein [Mass/Vol] 7.7 g/dL Normal 6.0-8.0 [facility] Comment on above: Performed By: #### C JACKSON ROBISON, 3039-3 #### [facility] ([id number]) [address] [place] [address] 58924 Sodium [Moles/Vol] 139 mmol/L Normal 134-146 [facility] Comment on above: Performed By: #### C JACKSON ROBISON, 3039-3 #### [facility] ([id number]) [address] [facility], [place] [address] Urea nitrogen [Mass/Vol] 12 mg/dL Normal 5-23 [facility] Comment on above: Performed By: #### C BCA, CMP, 3040-3 #### [facility] ([id number]) [address] [facility], [place] [address] CT ABDOMEN AND PELVIS W CONT on 11-05-2024 CT ABDOMEN AND PELVIS W CONT CT ABDOMEN AND PELVIS W CONT Indication: History of Crohn's disease with abdominal pain. TECHNIQUE: Enhanced CT of abdomen and pelvis is performed and compared to prior exam dated 10/08/2024. FINDINGS: Extreme lung bases are clear. The liver shows no focal lesion. The spleen is not enlarged. Adrenal glands, kidneys, and pancreas are not enlarged. Oral contrast was administered. Sigmoid colon and rectum are collapsed. There is a preaortic and retroaortic left renal vein present both appear narrowed. No definite renal calculi or secondary signs for obstruction. Postsurgical change about cecum. Bowel appears grossly unremarkable. The abdominal aorta shows normal caliber. No significant retroperitoneal lymphadenopathy appreciated. Bone windows show no worrisome lesion. Paraspinous soft tissues are symmetric. No fistula or abscess identified. There is some narrowing spots within small bowel most notable on coronal reconstructed image 33 within left lower quadrant region. Bowel proximal to this however is not significantly dilated. IMPRESSION: 1. Sigmoid colon is collapsed somewhat compromising its evaluation however colitis does not appear to be present. Small bowel appears grossly unremarkable. There are several narrowed foci but no significant dilatation.Narrowed Foci probably represent peristalsis with some mild degree of true narrowing not entirely excluded. Oral contrast is present within the colon. 2. Some narrowing of preaortic and retroaortic left renal veins which can result in left flank pain. There is also narrowing of the third portion of duodenum as it passes between superior mesenteric artery and aorta without significant dilatation of more proximal duodenum. The stomach appears mildly dilated filled with fluid. Clinical correlation for any possibility of SMA syndrome requested. All CT scans at this facility use dose modulation, iterative reconstruction, and/or weight based dosing when appropriate to reduce radiation dose to as low as reasonably achievable. Finalized by Aster Hernandez MD on 11/05/2024 4:26 PM Normal [facility] LIPASEon 11-05-2024 Lipase [Catalytic activity/Vol] 50 U/L High 17-40 [facility] Comment on above: Performed By: #### C RICKI CMP, 3039-3 #### [facility] ([id number]) [address] [place] [address] 59836 CBC AND AUTO DIFFon 11-04-19 25 ABSOLUTE BASOPHIL 0.0 X10E9/L Normal 0.0-0.2 [facility] Comment on above: Performed By: #### Alvarez ROBISON CMP, 3039-3 #### [facility] ([id number]) [address] [place] [address] 05471 ABSOLUTE NEUTROPHIL 4.9 X10E9/L Normal 1.5-6.6 [facility] Comment on above: Performed By: #### Alvarez ROBISON CMP, 3039-3 #### [facility] ([id number]) [address] [place] [address] 34066 Basophils/100 WBC (Bld) 0.5 % Normal [facility] Comment on above: Performed By: #### Alvarez ROBISON CMP, 3039-3 #### [facility] ([id number]) [address] [place] [address] 98097 Eosinophils (Bld) [#/Vol] 0.1 10*3/uL Normal 0.0-0.4 [facility] Comment on above: Performed By: #### Alvarez ROBISON CMP, 3039-3 #### [facility] ([id number]) [address] [place] [address] 42976 Eosinophils/100 WBC (Bld) 0.8 % Normal [facility] Comment on above: Performed By: #### Alvarez ROBISON CMP, 3039-3 #### [facility] ([id number]) [address] [place] [address] 36624 Erythrocyte distribution width (RBC) [Ratio] 12.9 % Normal 11.5-15.0 [facility] Comment on above: Performed By: #### Alvarez ROBISON CMP, 3039-12 #### [facility] ([id number]) [address] [place] [address] 29474 Hematocrit (Bld) [Volume fraction] 40.2 % Normal 39-49 [facility] Comment on above: Performed By: #### Alvarez ROBISON CMP, 3039-12 #### [facility] ([id number]) [address] [place] [address] 42164 Hemoglobin (Bld) [Mass/Vol] 13.4 g/dL Normal 13.0-17.0 [facility] Comment on above: Performed By: #### Alvarez ROBISON CMP, 3039-12 #### [facility] ([id number]) [address] [place] [address] 34542 Lymphocytes (Bld) [#/Vol] 1.2 10*3/uL Normal 1.0-3.5 [facility] Comment on above: Performed By: #### Alvarez ROBISON CMP, 3039-12 #### [facility] ([id number]) [address] [place] [address] 28274 Lymphocytes/100 WBC (Bld) 17.8 % Normal [facility] Comment on above: Performed By: #### Alvarez ROBISON CMP, 3039-12 #### [facility] ([id number]) [address] [place] [address] 00545 MCH (RBC) [Entitic mass] 28.9 pg Normal 27-34 [facility] Comment on above: Performed By: #### Alvarez ROBISON CMP, 3039-12 #### [facility] ([id number]) [address] [place] [address] 02126 MCHC (RBC) [Mass/Vol] 33.2 g/dL Normal 32-36 [facility] Comment on above: Performed By: #### C RICKI, CMP, 3039-3 #### [facility] ([id number]) [address] [place] [address] 34431 MCV (RBC) [Entitic vol] 87 fL Normal 80-100 [facility] Comment on above: Performed By: #### Alvarez ROBISON, CMP, 3039-3 #### [facility] ([id number]) [address] [place] [address] 40463 Monocytes (Bld) [#/Vol] 0.4 10*3/uL Normal 0-0.9 [facility] Comment on above: Performed By: #### Alvarez ROBISON, CMP, 3039-3 #### [facility] ([id number]) [address] [place] [address] 76132 Monocytes/100 WBC (Bld) 6.2 % Normal [facility] Comment on above: Performed By: #### Alvarez BCA, CMP, 3 #### [facility] ([id number]) [address] [place] [address] 20184 Neutrophils/100 WBC (Bld) 74.7 % Normal [facility] Comment on above: Performed By: #### Alvarez ROBISON, CMP, 3039-3 #### [facility] ([id number]) [address] [place] [address] 36462 Platelet mean volume (Bld) [Entitic vol] 7.1 fL Normal 7-12 [facility] Comment on above: Performed By: #### Alvarez ROBISON, CMP, 3039-3 #### [facility] ([id number]) [address] [place] [address] 47109 Platelets (Bld) [#/Vol] 345 10*3/uL Normal 150-450 [facility] Comment on above: Performed By: #### Alvarez BCA, CMP, 3039-3 #### [facility] ([id number]) [address] [place] [address] 52367 RBC COUNT 4.62 X10E12/L Normal 4.10-5.70 [facility] Comment on above: Performed By: #### C BCA, CMP, 3040-3 #### [facility] ([id number]) [address] [place] [address] 35254 WBC (Bld) [#/Vol] 6.6 10*3/uL Normal 4.0-11.0 [facility] Comment on above: Performed By: #### C RICKI, CMP, 3040-3 #### [facility] ([id number]) [address] [place] [address] 51959 COMPREHENSIVE METABOLIC PANE [facility] 11-04-2024 Albumin [Mass/Vol] 4.2 g/dL Normal 3.2-5.3 [facility] Comment on above: Performed By: #### Alvarez BCA, CMP, 3040-3 #### [facility] ([id number]) [address] [place] [address] 44064 ALP [Catalytic activity/Vol] 68 U/L Normal 39-130 [facility] Comment on above: Performed By: #### Alvarez BCA, CMP, 3040-3 #### [facility] ([id number]) [address] [place] [address] 65468 ALT [Catalytic activity/Vol] 12 U/L Normal 0-40 [facility] Comment on above: Performed By: #### C BCA, CMP, 3040-3 #### [facility] ([id number]) [address] [place] [address] 86137 Anion gap [Moles/Vol] 8 mmol/L Normal 5-15 [facility] Comment on above: Performed By: #### Alvarez BCA, CMP, 3040-3 #### [facility] ([id number]) [address] [place] [address], [place] [address] AST [Catalytic activity/Vol] 21 U/L Normal 0-41 [facility] Comment on above: Performed By: #### C JACKSON ROBISON, 3039-3 #### [facility] ([id number]) [address] [place] [address] 04524 Bilirubin [Mass/Vol] 0.6 mg/dL Normal 0.3-1.2 [facility] Comment on above: Performed By: #### C JACKSON ROBISON, 3 #### [facility] ([id number]) [address] [place] [address] 14493 Calcium [Mass/Vol] 9.9 mg/dL Normal 8.5-10.5 [facility] Comment on above: Performed By: #### Alvarez ROBISON CMP, 3 #### [facility] ([id number]) [address] [place] [address] 64022 Chloride [Moles/Vol] 106 mmol/L Normal 98-109 [facility] Comment on above: Performed By: #### C JACKSON ROBISON, 3 #### [facility] ([id number]) [address] [place] [address] 01434 CO2 [Moles/Vol] 25 mmol/L Normal 22-32 [facility] Comment on above: Performed By: #### Alvarez ROBISON CMP, 3 #### [facility] ([id number]) [address] [place] [address] 18779 Creatinine [Mass/Vol] 0.72 mg/dL Normal 0.70-1.20 [facility] Comment on above: Result Comment: METH OD TRACEABLE TO IDMS STANDARD Performed By: #### C JACKSON ROBISON, 0-3 #### [facility] ([id number]) [address] [place] [address] 75251 eGFR (CKD-EPI) NON-RACE DEPENDENT >90 Normal >59 [facility] Comment on above: Result Comment: Reported eGFR is based on the CKD-EPI 2020 equation that does not use a race coefficient. Performed By: #### C JACKSON ROBISON, 3040-3 #### [facility] ([id number]) [address] [place] [address] 14006 Glucose [Mass/Vol] 102 mg/dL High 65-99 [facility] Comment on above: Performed By: #### Alvarez ROBISON CMP, 3039-3 #### [facility] ([id number]) [address] [place] [address] 96849 Potassium [Moles/Vol] 3.8 mmol/L Normal 3.5-5.0 [facility] Comment on above: Performed By: #### Alvarez ROBISON CMP, 3039-3 #### [facility] ([id number]) [address] [place] [address] 71731 Protein [Mass/Vol] 7.8 g/dL Normal 6.0-8.0 [facility] Comment on above: Performed By: #### Alvarez ROBISON [facility], 3039-3 #### [facility] ([id number]) [address] [place] [address] 53878 Sodium [Moles/Vol] 139 mmol/L Normal 134-146 [facility] Comment on above: Performed By: #### Alvarez ROBISON CMP, 3040-3 #### [facility] ([id number]) [address] [place] [address] 38062 Urea nitrogen [Mass/Vol] 15 mg/dL Normal 5-23 [facility] Comment on above: Performed By: #### Alvarez ROBISON CMP, 3040-3 #### [facility] ([id number]) [address] [place] [id number] LIPASEon 11-04-2024 Lipase [Catalytic activity/Vol] 53 U/L High 17-40 [facility] Comment on above: Performed By: #### C BCA, CMP, 3040-3 #### [facility] ([id number]) [address] [facility] [place] [address] [facility] 11-04-19 [facility] Case Information Case Priority: None Programs: -- Referral Source: Shift Superintendent Caustic Cresylate Referral Reason: Care coordination Case Type: Transition Care Management Risk Score: -- Case Status: Enrolled (October 10, 2024) Date Assigned: October 10, 2024 Assigned By: Alycia Hayes R.N. Date Enrolled: October 10, 2024 Assigned Primary Personnel: Adam Jefferson Secondary Personnel: Alycia Hayes R.N. Case Physician: Kira Lorenzana Problems Ongoing Abdominal pain BMI 23.0-23.9, adult Chest pain History of epididymitis Hospital discharge follow-up Inguinal lymphadenopathy Rash Reactive lymphadenopathy Recurrent UTI Historical No qualifying data Procedure/Surgical History History of colectomy (07/11/2024), Arthroscopy of knee, Cholecystectomy, Epididymal cyst. Home Medications [place] 325 mg-5 mg oral tablet, 1 tab(s), Oral, q6hr, PRN ondansetron 4 mg Tab, 4 mg= 1 tab(s), Oral, q6hr, PRN Pepcid 20 mg Tab, 20 mg= 1 tab(s), Oral, BID Allergies No Known Allergies Social History Alcohol Never., 10/15/2024 Substance Abuse Never., 10/15/2024 Tobacco - Denies Tobacco Use, 07/08/2024 Former smoker, quit more than 30 days ago Tobacco Use:., 10/15/2024 Screenings and Assessments 10/10/24 09:37:00 Result Name Value Comment Phone Call Monitoring Consent Agreed to continue call Phone Verification Patient Information Full name, street address and date of verified CM Program Enrollment Provides verbal consent for enrollment Goals and Interventions Care Plan Progress Note TCM#4- Patient reports his abdominal pain is acting up today. Rates pain 8 on numeric pain scale. Patient used his last norco. Patient has tried Tylenol and ibuprofen bit neither are effective. Patient states he missed work today d/t pain. Patient does not have appointment with GI f/u until the end of the month, 2.5 weeks out. Patient notes he has been eating a bland diet. He has been eating more yogurt and staying avoiding fast food. No change in sleep pattern noted. Denies any bowel issues, states last BM last evening. Patient denies any urinary issues. Patient stated he was going to report to [facility] ED d/t his pain. Patient denies any further questions or concerns. Communication Events Date: November 04, 2024 Method: Phone call Type: Outbound Duration (min): 10 Outcome: Case discussion Contact Type: Patient Contact Name: WILLIAM HERNANDEZ Notes: TCM#4- see tcm note. Created By: Adam Jefferson Date: October 29, 2024 Method: Phone call Type: Outbound Duration (min): 6 Outcome: Case discussion Contact Type: Patient Contact Name: WILLIAM HERNANDEZ Notes: TCM#3- see tcm note. Created By: Adam Jefferson Date: October 22, 2024 Method: Phone call Type: Outbound Duration (min): 1 Outcome: Left message-voicemail Contact Type: Patient Contact Name: WILLIAM HERNANDEZ Notes: TCM#2- no answer, left vm for return call. Created By: Adam Jefferson Date: October 10, 2024 Method: Phone call Type: Outbound Duration (min): 24 Outcome: Case discussion Contact Type: Patient Contact Name: WILLIAM HERNANDEZ Notes: tcm #1 see ft summary note Created By: Alycia Hayes R.N. [facility] 10-29-19 Formerly [facility] Case Information Case Priority: None Programs: -- Referral Source: Shift Superintendent Caustic Cresylate Referral Reason: Care coordination Case Type: Transition Care Management Risk Score: -- Case Status: Enrolled (October 10, 2024) Date Assigned: October 10, 2024 Assigned By: Alycia Hayes R.N. Date Enrolled: October 10, 2024 Assigned Primary Personnel: Adam Jefferson Assigned Secondary Personnel: Alycia Hayes R.N. Case Physician: Kira Lorenzana Problems Ongoing Abdominal pain BMI 23.0-23.9, adult Chest pain History of epididymitis Hospital discharge follow-up Inguinal lymphadenopathy Rash Reactive lymphadenopathy Recurrent UTI Historical No qualifying data Procedure/Surgical History History of colectomy (07/11/2024), Arthroscopy of knee, Cholecystectomy, Epididymal cyst. Home Medications Quincy 325 mg-5 mg oral tablet, 1 tab(s), Oral, q6hr, PRN ondansetron 4 mg Tab, 4 mg= 1 tab(s), Oral, q6hr, PRN Pepcid 20 mg Tab, 20 mg= 1 tab(s), Oral, BID Allergies No Known Allergies Social History Alcohol Never., 10/15/2024 Substance Abuse Never., 10/15/2024 Tobacco - Denies Tobacco Use, 07/08/2024 Former smoker, quit more than 30 days ago Tobacco Use:., 10/15/2024 Screenings and Assessments 10/10/24 09:37:00 Result Name Value Comment Phone Call Monitoring Consent Agreed to continue call Phone Verification Patient Information Full name, street address and date of verified CM Program Enrollment Provides verbal consent for enrollment Goals and Interventions Care Plan Progress Note TCM#3- Patient reports his abdominal pain and nausea are still there. Notes Zofran and Quincy are effective. Patient has not yet contacted his GI dr notes he has been working and when he gets off the office is closed. Suggested to patient, possibly call during his lunch break. Patient notes his bowels are loose, 'normal' for him. Denies any urinary system issues. Patient reports his appetite has been 'crappy.' He has been eating more yogurt and trying to eat more frequently. Patient notes he drinks a lot of propel. No change in sleep pattern notes. Patient is going to be out of town and requested to r/s upcoming OV (rescheduled). Patient denies any further questions or concerns at this. Communication Events Date: October 29, 2024 Method: Phone call Type: Outbound Duration (min): 6 Outcome: Case discussion Contact Type: Patient Contact Name: WILLIAM HERNANDEZ Notes: TCM#3- see tcm note. Created By: Adam Jefferson Date: October 22, 2024 Method: Phone call Type: Outbound Duration (min): 1 Outcome: Left message-voicemail Contact Type: Patient Contact Name: WILLIAM HERNANDEZ Notes: TCM#2- no answer, left vm for return call. Created By: Adam Jefferson Date: October 10, 2024 Method: Phone call Type: Outbound Duration (min): 24 Outcome: Case discussion Contact Type: Patient Contact Name: FRIEND, WILLIAM Powell Notes: tcm #1 see ft summary note Created By: Abigail Carney, Alycia Rudd Normal [facility] CBC AND AUTO DIFFon 10-21-19 25 ABSOLUTE BASOPHIL 0.0 X10E9/L Normal 0.0-0.2 [facility] Comment on above: Performed By: #### C BCA, CMP, 0-3 #### [facility] ([id number]) [address] [place] [address] 57840 ABSOLUTE NEUTROPHIL 4.4 X10E9/L Normal 1.5-6.6 [facility] Comment on above: Performed By: #### C BCA, CMP, 3039-3 #### [facility] ([id number]) [address] [place] [address] 66451 Basophils/100 WBC (Bld) 0.7 % Normal [facility] Comment on above: Performed By: #### Alvarez BCA, CMP, 3039-3 #### [facility] ([id number]) [address] [place] [address] 55631 Eosinophils (Bld) [#/Vol] 0.1 10*3/uL Normal 0.0-0.4 [facility] Comment on above: Performed By: #### Alvarez BCA, CMP, 3039-3 #### [facility] ([id number]) [address] [place] [address] 22307 Eosinophils/100 WBC (Bld) 1.2 % Normal [facility] Comment on above: Performed By: #### C BCA, CMP, 0-3 #### [facility] ([id number]) [address] [place] [address] 06134 Erythrocyte distribution width (RBC) [Ratio] 13.1 % Normal 11.5-15.0 [facility] Comment on above: Performed By: #### C BCA, CMP, 3039-3 #### [facility] ([id number]) [address] [place] [address] 57969 Hematocrit (Bld) [Volume fraction] 39.0 % Normal 39-49 [facility] Comment on above: Performed By: #### Alvarez ROBISON CMP, 3 #### [facility] ([id number]) [address] [place] [address] 46746 Hemoglobin (Bld) [Mass/Vol] 13.1 g/dL Normal 13.0-17.0 [facility] Comment on above: Performed By: #### Alvarez ROBISON CMP, 3039-12 #### [facility] ([id number]) [address] [place] [address] 16180 Lymphocytes (Bld) [#/Vol] 1.9 10*3/uL Normal 1.0-3.5 [facility] Comment on above: Performed By: #### Alvarez ROBISON CMP, 3039-12 #### [facility] ([id number]) [address] [place] [address] 37403 Lymphocytes/100 WBC (Bld) 26.9 % Normal [facility] Comment on above: Performed By: #### Alvarez ROBISON [facility], 3039-12 #### [facility] ([id number]) [address] [place] [address] 58916 MCH (RBC) [Entitic mass] 29.3 pg Normal 27-34 [facility] Comment on above: Performed By: #### Alvarez ROBISON CMP, 3039-12 #### [facility] ([id number]) [address] [place] [address] 81897 MCHC (RBC) [Mass/Vol] 33.6 g/dL Normal 32-36 [facility] Comment on above: Performed By: #### Alvarez ROBISON CMP, 3 #### [facility] ([id number]) [address] [place] [address] 17255 MCV (RBC) [Entitic vol] 87 fL Normal 80-100 [facility] Comment on above: Performed By: #### C JACKSON ROBISON, 3039-3 #### [facility] ([id number]) [address] [place] [address] 47444 Monocytes (Bld) [#/Vol] 0.5 10*3/uL Normal 0-0.9 [facility] Comment on above: Performed By: #### Alvarez ROBISON CMP, 3039-12 #### [facility] ([id number]) [address] [place] [address] 38186 Monocytes/100 WBC (Bld) 7.8 % Normal [facility] Comment on above: Performed By: #### C RICKI CMP, 3039-12 #### [facility] ([id number]) [address] [place] [address] 04511 Neutrophils/100 WBC (Bld) 63.4 % Normal [facility] Comment on above: Performed By: #### Alvarez ROBISON CMP, 3039-12 #### [facility] ([id number]) [address] [place] [address] 03200 Platelet mean volume (Bld) [Entitic vol] 7.1 fL Normal 7-12 [facility] Comment on above: Performed By: #### Alvarez ROBISON CMP, 3039-12 #### [facility] ([id number]) [address] [place] [address] 46572 Platelets (Bld) [#/Vol] 259 10*3/uL Normal 150-450 [facility] Comment on above: Performed By: #### Alvarez ROBISON CMP, 3039-3 #### [facility] ([id number]) [address] [place] [address] 41012 RBC COUNT 4.47 X10E12/L Normal 4.10-5.70 [facility] Comment on above: Performed By: #### C BCA, CMP, 3039-3 #### [facility] ([id number]) [address] [place] [address] 85401 WBC (Bld) [#/Vol] 6.9 10*3/uL Normal 4.0-11.0 [facility] Comment on above: Performed By: #### C BCA, CMP, 3039-3 #### [facility] ([id number]) [address] [place] [address] 46406 COMPREHENSIVE METABOLIC PANE Jesús 10-21-2024 Albumin [Mass/Vol] 4.2 g/dL Normal 3.2-5.3 [facility] Comment on above: Performed By: #### C BCA, CMP, 3039-3 #### [facility] ([id number]) [address] [place] [address] 71563 ALP [Catalytic activity/Vol] 72 U/L Normal 39-130 [facility] Comment on above: Performed By: #### C BCA, CMP, 3039-3 #### [facility] ([id number]) [address] [place] [address] 56603 ALT [Catalytic activity/Vol] 14 U/L Normal 0-40 [facility] Comment on above: Performed By: #### C BCA, CMP, 3039-3 #### [facility] ([id number]) [address] [place] [address] 86451 Anion gap [Moles/Vol] 8 mmol/L Normal 5-15 [facility] Comment on above: Performed By: #### C BCA, CMP, 3039-3 #### [facility] ([id number]) [address] [place] [address] 91929 AST [Catalytic activity/Vol] 20 U/L Normal 0-41 [facility] Comment on above: Performed By: #### C BCA, CMP, 3039-3 #### [facility] ([id number]) [address] [place] [address] 71334 Bilirubin [Mass/Vol] 0.8 mg/dL Normal 0.3-1.2 [facility] Comment on above: Performed By: #### C JACKSON ROBISON, 3040-3 #### [facility] ([id number]) [address] [place] [address] 57950 Calcium [Mass/Vol] 9.0 mg/dL Normal 8.5-10.5 [facility] Comment on above: Performed By: #### C JACKSON ROBISON, 3039-3 #### [facility] ([id number]) [address] [place] [address] 76860 Chloride [Moles/Vol] 97 mmol/L Low 98-109 [facility] Comment on above: Performed By: #### Alvarez ROBISON CMP, 3039-3 #### [facility] ([id number]) [address] [place] [address] 28329 CO2 [Moles/Vol] 31 mmol/L Normal 22-32 [facility] Comment on above: Performed By: #### Alvarez ROBISON CMP, 3 #### [facility] ([id number]) [address] [place] [address] 98220 Creatinine [Mass/Vol] 0.76 mg/dL Normal 0.70-1.20 [facility] Comment on above: Result Comment: METH OD TRACEABLE TO IDMS STANDARD Performed By: #### C JACKSON ROBISON, 3039-3 #### [facility] ([id number]) [address] [place] [address] 35575 eGFR (CKD-EPI) NON-RACE DEPENDENT >90 Normal >59 [facility] Comment on above: Result Comment: Reported eGFR is based on the CKD-EPI 2020 equation that does not use a race coefficient. Performed By: #### C JACKSON ROBISON, 0-3 #### [facility] ([id number]) [address] [place] [address] 46378 Glucose [Mass/Vol] 105 mg/dL High 65-99 [facility] Comment on above: Performed By: #### Alvarez ROBISON CMP, 0-3 #### [facility] ([id number]) [address] [place] [address] 00746 Potassium [Moles/Vol] 3.0 mmol/L Low 3.5-5.0 [facility] Comment on above: Performed By: #### Alvarez ROBISON CMP, 3 #### [facility] ([id number]) [address] [place] [address] 73619 Protein [Mass/Vol] 7.1 g/dL Normal 6.0-8.0 [facility] Comment on above: Performed By: #### Alvarez ROBISON CMP, 3 #### [facility] ([id number]) [address] [place] [address] 59108 Sodium [Moles/Vol] 136 mmol/L Normal 134-146 [facility] Comment on above: Performed By: #### Alvarez ROBISON CMP, 3039-3 #### [facility] ([id number]) [address] [place] [address] 42398 Urea nitrogen [Mass/Vol] 12 mg/dL Normal 5-23 [facility] Comment on above: Performed By: #### Alvarez ROBISON CMP, 3039-3 #### [facility] ([id number]) [address] [place] [address] 03744 LIPASEon 10-21-2024 Lipase [Catalytic activity/Vol] 29 U/L Normal 17-40 [facility] Comment on above: Performed By: #### Alvarez ROBISON CMP, 3039-3 #### [facility] ([id number]) [address] [place] [address] 82642 XR ABDOM COMP SERIES W PA CH ESTon 10-21-2024 XR ABDOM COMP SERIES W PA CHEST XR ABDOM COMP SERIES W PA CHEST Clinical: Vomiting. Crohn's disease. EXAM: ABDOMEN RADIOGRAPHS with PA chest Views: Supine and upright abdomen and PA chest Comparison: 08/16/2024 Findings: There is no gaseous bowel distention. No free air seen. Moderate stool burden. No abnormal calcifications. Lungs are clear. No large pleural effusions or pneumothorax. Healed right clavicular fracture. Impression: * Nonobstructive bowel gas pattern. * No acute pulmonary disease Finalized by Jourdan Santiago MD on 10/21/2024 10:06 PM Normal [facility] Ambulatory Visit Summaryon Ambulatory Visit Summary Ambulatory Visit Summary FRIEND, WILLIAM Powell :1995 Visit Date:10/15/2024 Ambulatory Visit Instructions Your Care Team Attending Physician - Kira Lorenzana Primary Care Physician - Christian SAXENA, Casey Nelson This Is Your Medications List famotidine (Pepcid 20 mg Tab) Procedures Performed History of colectomy (07/11/2024), Arthroscopy of knee, Cholecystectomy, Epididymal cyst. Discharge Vitals Temperature (Oral) 36.5 ???C Heart Rate (Peripheral) 76 Respiratory Rate 18 Blood Pressure 112/68 Height 165.0 cm Height 65 in Weight 63.5 kg Weight 139.993 lb BMI 23.32 What to do next Scheduled Follow-Up Appointments Monday 10:00 AM EST With: Christian SAXENA, Casey Nelson Where: [facility] Medicine [address] [address]- Medications What How Much When Why Instructions Unchanged famotidine (Pepcid 20 mg Tab) 1 Tablets By Mouth 2 times a day Chest pain BMI 25.0-25.9,adult Overweight Vaping-related disorder Allergies No Known Allergies Problems Ongoing - Any problem that you are currently receiving treatment for. Chest pain History of epididymitis Inguinal lymphadenopathy Rash Reactive lymphadenopathy Recurrent UTI Patient Survey You may receive a survey via text or e-mail asking about your office visit. Please share your experience with us by completing your survey. We appreciate your feedback and thank you for choosing us for your care. Normal [facility] Family Medicine Office/Clini c Noteon 10-15-2024 Family Medicine Office/Clinic Note Family Medicine Office/Clinic Note HPI Staff William is a 29 year old male presenting with ER followup: Hospital: [facility] Visit date: 10/08/24 Symptoms the patient presented with: abdominal pain Current concerns: tx'd with Pepcid Still feeling nauseated, threw up a couple times last time was early this morning History of Present Illness pt presents today for TCM Review of Systems PHQ Score Initial Depression Screen Score: 0 SCORE Physical Exam Vitals & Measurements T: 36.5 ???C(Oral) HR: 76(Peripheral) RR: 18 BP: 112/68 SpO2: 99% HT: 65 in HT: 165.0 cm WT: 63.5 kg WT: 139.993 lb BMI: 23.32 General: alert, no acute distress ENMT: oral mucosa moist, no pharyngeal erythema or exudate Cardiovascular: regular rate and rhythm, normal peripheral perfusion Respiratory: Lungs CTA, respirations non labored Extremities: no deformity, no trauma Neurological: oriented x 4, LOC appropriate for age, CN II-XII intact, motor strength equal & normal bilaterally, speech normal mid abdomen tender Assessment/Plan 1. Hospital discharge follow-up (Z09: Encounter for follow-up examination after completed treatment for conditions other than malignant neoplasm) pt was discharged on 10/09 was admitted at [facility] to control abdominal pain. pt has a long history of GI issues. had part of bowl removed about 3 months ago. pt is having severe mid abdominal pain. does not have an appetite. is also having nausea. CT results and lab results were reviewed. pt will call GI specialist on to discuss further treatment. RTC to follow up with Dr. Carpio Ordered: TCM Trans care mgmt 7 day disch [id number] 2. Abdominal pain (R10.9: Unspecified abdominal pain) will send in [facility]. pt to follow up with GI in [place] that did his surgery 3 months ago. OARRS report reviewed. Ordered: TCM Trans care mgmt 7 day disch 83612 3. BMI 23.0-23.9, adult (Z68.23: Body mass index [BMI] 23.0-23.9, adult) BMI education give Ordered: TCM Trans care mgmt 7 day disch [id number] Orders: acetaminophen-hydrocodo ne, 1 tab(s), Oral, q6hr for pain, 16 tab(s), Refill(s) 0, for severe pain -07/25, [facility] #16, 165, cm, 10/15/24 10:38:00 EST, Height/Length Dosing, 63.5, kg, 10/15/24 10:38:00 EST, Weight Dosing ondansetron, 4 mg = 1 tab(s), Oral, q6hr, PRN Nausea/Vomiting, # 20 tab(s), Refills(s) 0, Pharmacy: [facility] #16, 165, cm, 10/15/24 10:38:00 EST, Height/Length Dosing, 63.5, kg, 10/15/24 10:38:00 EST, Weight Dosing Follow-up No qualifying data available Problem List/Past Medical History Ongoing Abdominal pain BMI 23.0-23.9, adult Chest pain History of epididymitis Hospital discharge follow-up Inguinal lymphadenopathy Rash Reactive lymphadenopathy Recurrent UTI Historical No qualifying data Procedure/Surgical History History of colectomy (07/11/2024), Arthroscopy of knee, Cholecystectomy, Epididymal cyst. Medications Quincy 325 mg-5 mg oral tablet, 1 tab(s), Oral, q6hr, PRN ondansetron 4 mg Tab, 4 mg= 1 tab(s), Oral, q6hr, PRN Pepcid 20 mg Tab, 20 mg= 1 tab(s), Oral, BID Allergies No Known Allergies Social History Alcohol Never., 10/15/2024 Substance Abuse Never., 10/15/2024 Tobacco - Denies Tobacco Use, 07/08/2024 Former smoker, quit more than 30 days ago Tobacco Use:., 10/15/2024 Immunizations Vaccine Date Status Comments SARS-CoV-2 (COVID-19) Ad26 vaccine - Not Given Temporary contraindication - reschedule Normal [facility] Comment on above: Result Comment: Elec tronically Signed By: Kira Lorenzana\.br\Date and Time Signed: 10/15/24 11:13 EST Population Health 10-10-20 [facility] Case Information Case Priority: None Programs: -- Referral Source: Shift Superintendent Caustic Cresylate Referral Reason: Care coordination Case Type: Transition Care Management Risk Score: -- Case Status: Enrolled (October 10, 2024) Date Assigned: October 10, 2024 Assigned By: Alycia Hayes R.N. Date Enrolled: October 10, 2024 Assigned Primary Personnel: Adam Jefferson Secondary Personnel: Alycia Hayes R.N. Case Physician: Casey Carpio MD Ongoing Chest pain History of epididymitis Inguinal lymphadenopathy Rash Reactive lymphadenopathy Recurrent UTI Historical No qualifying data Procedure/Surgical History History of colectomy (07/11/2024), Arthroscopy of knee, Cholecystectomy, Epididymal cyst. Home Medications Pepcid 20 mg Tab, 20 mg= 1 tab(s), Oral, BID predniSONE 20 mg Tab, 40 mg= 2 tab(s), Oral, Daily, Not taking Allergies No Known Allergies Social History Tobacco - Denies Tobacco Use, 07/08/2024 Former smoker, quit more than 30 days ago Tobacco Use:. Current vaping or e-cigarette use Smokeless Tobacco Use:. Vaping, Household tobacco concerns: No., 07/29/2024 Screenings and Assessments 10/10/24 09:37:00 Result Name Value Comment Phone Call Monitoring Consent Agreed to continue call Phone Verification Patient Information Full name, street address and date of verified CM Program Enrollment Provides verbal consent for enrollment Goals and Interventions Care Plan Progress Note Admit Date: 10/08/2024 Date of Discharge: 10/09/2024 Follow-up appointment scheduled? 10/15/2024 Did you understand your discharge instructions? yes Are you able to follow them? yes Did you receive new medications? prednisone 20 mg 2 tabs daily x 5days Have you filled the Rx's? no is going out of town 09/30/2024, will fill when returns 10/14/2024 Are you taking them as prescribed? no Are you having difficulty eating or swallowing your pills? no Are you having any stomach upset, diarrhea or constipation? no How are you sleeping? ok Are you having any pain? no Do you have everything you need at home to care for yourself? yes Do you have Home Health? no Called patient for Transitional Care Management following hospitalization for abd pain, Crohn's. Patient risk for readmission unavailable. Reviewed discharge instructions and medications reconciled with patient, discharge list and EHR. Reviewed purpose and side effects of new medications. Patient states I'm doing alright, still hurting some. Reports pain began 10/07 and felt like someone was grabbing my intestines and twisting them. Went to ED 10/[address] showed Crohn's. Patient endorsed diarrhea and nausea before admit, but states this has resolved. Also reports there was some blood in stool. Has not had BM since. Reports some CP with this but states the hospital didn't seem to care about that. This remains unchanged since d/c. Patient states I'm afraid to eat and get it started again Encouraged to eat bland foods as tolerated and to avoid spicy,fiber foods and caffeine. Educated importance of nutritional intake. Acknowledged understanding. Patient has not filled prednisone prescription and does not plan until returns from out of town. Will be gone from 10/10-10/14. 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 Acknowledged understanding Continues to say will not picking table worker d/t not having time. Denies trouble eating, drinking swallowing, or with bowels/bladder. Denies concerns Follow up appointment 10/15/2024 @[address] [place] [address]. [facility] services explained and direct phone number given. Communication Events Date: October 10, 2024 Method: Phone call Type: Outbound Duration (min): 24 Outcome: Case discussion Contact Type: Patient Contact Name: FRIEND, WILLIAM Powell Notes: tcm #1 see summary note Created By: Alycia Hayes R.N. Encouraged to seek medical attention should sx return. Normal [facility] Reminderson 10-10-2024 Reminders Reminders From: Alycia Hayes R.N. To: [facility] [employer]; Sent: 10/10/2024 11:47:06 EST Show up: 10/10/2024 11:47:00 EST Subject: tcm #2 bia Due Date/Time: 10/22/2024 11:47:00 EST Reminder/Recall Normal [facility] Reminders Reminders From: Alycia Hayes R.N. To: [facility] [employer]; Sent: 10/10/2024 11:46:14 EST Show up: 10/10/2024 11:46:00 EST Subject: ov Due Date/Time: 10/15/2024 11:46:00 EST Reminder/Recall Normal [facility] Reminders Reminders From: Alycia Hayes R.N. To: [facility] [employer] Technician; Adam Jefferson; Sent: 10/10/2024 11:44:01 EST Show up: 10/10/2024 11:43:00 EST Subject: ov Due Date/Time: 10/15/2024 11:43:00 EST Reminder/Recall Normal [facility] Reminders Reminders From: Alycia Hayes R.N. To: [facility] Filiberto Fitzgerald; Adam Jefferson; Sent: 10/10/2024 09:39:39 EST Show up: 10/10/2024 09:39:00 EST Subject: tcm #2 Due Date/Time: 10/17/2024 09:39:00 EST Reminder/Recall Normal [facility] Reminders Reminders From: Alycia Hayes R.N. To: [facility] Feed Research Technician; Adam Jefferson; Sent: 10/10/2024 09:38:44 EST Show up: 10/10/2024 09:38:00 EST Subject: OV Due Date/Time: 10/28/2024 09:38:00 EST Reminder/Recall Normal [facility] CBC AND AUTO DIFFon 10-09-20 ABSOLUTE BASOPHIL 0.1 X10E9/L Normal 0.0-0.2 [facility] Comment on above: Performed By: #### C JACKSON ROBISON, 3040-3 #### [facility] ([id number]) [address] [place] [address], [place] [address] ABSOLUTE NEUTROPHIL 3.5 X10E9/L Normal 1.5-6.6 [facility] Comment on above: Performed By: #### C JACKSON ROBISON, 3039-3 #### [facility] ([id number]) [address] [place] [address] 21745 Basophils/100 WBC (Bld) 0.9 % Normal [facility] Comment on above: Performed By: #### C RICKI CMP, 3039-3 #### [facility] ([id number]) [address] [place] [address] 81688 Eosinophils (Bld) [#/Vol] 0.1 10*3/uL Normal 0.0-0.4 [facility] Comment on above: Performed By: #### Alvarez ROBISON [facility], 3039-12 #### [facility] ([id number]) [address] [place] [address] 24604 Eosinophils/100 WBC (Bld) 1.6 % Normal [facility] Comment on above: Performed By: #### Alvarez ROBISON [facility], 3 #### [facility] ([id number]) [address] [place] [address] 05980 Erythrocyte distribution width (RBC) [Ratio] 12.8 % Normal 11.5-15.0 [facility] Comment on above: Performed By: #### Alvarez ROBISON [facility], 3039- #### [facility] ([id number]) [address] [place] [address] 20213 Hematocrit (Bld) [Volume fraction] 38.2 % Low 39-49 [facility] Comment on above: Performed By: #### Alvarez ROBISON [facility], 3 #### [facility] ([id number]) [address] [place] [address] 30911 Hemoglobin (Bld) [Mass/Vol] 12.9 g/dL Low 13.0-17.0 [facility] Comment on above: Performed By: #### Alvarez ROBISON CMP, 3039-3 #### [facility] ([id number]) [address] [place] [address] 97092 Lymphocytes (Bld) [#/Vol] 1.7 10*3/uL Normal 1.0-3.5 [facility] Comment on above: Performed By: #### Alvarez ROBISON CMP, 3039-3 #### [facility] ([id number]) [address] [place] [address] 07680 Lymphocytes/100 WBC (Bld) 29.6 % Normal [facility] Comment on above: Performed By: #### Alvarez ROBISON CMP, 3039-12 #### [facility] ([id number]) [address] [place] [address] 12385 MCH (RBC) [Entitic mass] 29.7 pg Normal 27-34 [facility] Comment on above: Performed By: #### Alvarez ROBISON CMP, 3 #### [facility] ([id number]) [address] [place] [address] 54937 MCHC (RBC) [Mass/Vol] 33.7 g/dL Normal 32-36 [facility] Comment on above: Performed By: #### Alvarez ROBISON [facility], 3039-12 #### [facility] ([id number]) [address] [place] [address] 90756 MCV (RBC) [Entitic vol] 88 fL Normal 80-100 [facility] Comment on above: Performed By: #### Alvarez ROBISON CMP, 3039-12 #### [facility] ([id number]) [address] [place] [address] 11694 Monocytes (Bld) [#/Vol] 0.4 10*3/uL Normal 0-0.9 [facility] Comment on above: Performed By: #### Alvarez ROBISON CMP, 3039-3 #### [facility] ([id number]) [address] [place] [address] 91218 Monocytes/100 WBC (Bld) 7.5 % Normal [facility] Comment on above: Performed By: #### Alvarez ROBISON CMP, 3040-3 #### [facility] ([id number]) [address] [place] [address] 33784 Neutrophils/100 WBC (Bld) 60.4 % Normal [facility] Comment on above: Performed By: #### Alvarez ROBISON CMP, 3039-3 #### [facility] ([id number]) [address] [place] [address] 10256 Platelet mean volume (Bld) [Entitic vol] 7.4 fL Normal 7-12 [facility] Comment on above: Performed By: #### Alvarez ROBISON CMP, 3039-3 #### [facility] ([id number]) [address] [place] [address] 52433 Platelets (Bld) [#/Vol] 265 10*3/uL Normal 150-450 [facility] Comment on above: Performed By: #### Alvarez ROBISON CMP, 3039-3 #### [facility] ([id number]) [address] [place] [address] 36784 RBC COUNT 4.33 X10E12/L Normal 4.10-5.70 [facility] Comment on above: Performed By: #### Alvarez ROBISON CMP, 0-3 #### [facility] ([id number]) [address] [place] [address] 04793 WBC (Bld) [#/Vol] 5.7 10*3/uL Normal 4.0-11.0 [facility] Comment on above: Performed By: #### Alvarez ROBISON, CMP, 3040-3 #### [facility] ([id number]) [address] [place] [address] 60642 COMPREHENSIVE METABOLIC PANE Jesús 10-09-2024 Albumin [Mass/Vol] 3.9 g/dL Normal 3.2-5.3 [facility] Comment on above: Performed By: #### C BCA, CMP, 0-3 #### [facility] ([id number]) [address] [place] [address] 37440 ALP [Catalytic activity/Vol] 66 U/L Normal 39-130 [facility] Comment on above: Performed By: #### C BCA, CMP, 0-3 #### [facility] ([id number]) [address] [place] [address] 29367 ALT [Catalytic activity/Vol] 12 U/L Normal 0-40 [facility] Comment on above: Performed By: #### C BCA, CMP, 3039-3 #### [facility] ([id number]) [address] [place] [address] 37856 Anion gap [Moles/Vol] 6 mmol/L Normal 5-15 [facility] Comment on above: Performed By: #### C BCA, CMP, 3039-3 #### [facility] ([id number]) [address] [place] [address] 09706 AST [Catalytic activity/Vol] 18 U/L Normal 0-41 [facility] Comment on above: Performed By: #### C BCA, CMP, 0-3 #### [facility] ([id number]) [address] [place] [address] 22670 Bilirubin [Mass/Vol] 0.6 mg/dL Normal 0.3-1.2 [facility] Comment on above: Performed By: #### C BCA, CMP, 3039-3 #### [facility] ([id number]) [address] [place] [address] 66205 Calcium [Mass/Vol] 9.7 mg/dL Normal 8.5-10.5 [facility] Comment on above: Performed By: #### C BCA, CMP, 0-3 #### [facility] ([id number]) [address] [place] [address] 02163 Chloride [Moles/Vol] 105 mmol/L Normal 98-109 [facility] Comment on above: Performed By: #### C JACKSON ROBISON, 3040-3 #### [facility] ([id number]) [address] [place] [address] 23113 CO2 [Moles/Vol] 28 mmol/L Normal 22-32 [facility] Comment on above: Performed By: #### C JACKSON ROBISON, 3039-3 #### [facility] ([id number]) [address] [place] [address] 89817 Creatinine [Mass/Vol] 0.78 mg/dL Normal 0.70-1.20 [facility] Comment on above: Result Comment: METH OD TRACEABLE TO IDMS STANDARD Performed By: #### C JACKSON ROBISON, 3039-3 #### [facility] ([id number]) [address] [place] [address] 13855 eGFR (CKD-EPI) NON-RACE DEPENDENT >90 Normal >59 [facility] Comment on above: Result Comment: Reported eGFR is based on the CKD-EPI 2020 equation that does not use a race coefficient. Performed By: #### C JACKSON ROBISON, 3040-3 #### [facility] ([id number]) [address] [place] [address] 42379 Glucose [Mass/Vol] 98 mg/dL Normal 65-99 [facility] Comment on above: Performed By: #### C JACKSON ROBISON, 3039-3 #### [facility] ([id number]) [address] [place] [address] 29654 Potassium [Moles/Vol] 3.9 mmol/L Normal 3.5-5.0 [facility] Comment on above: Performed By: #### C JACKSON ROBISON, 3039-3 #### [facility] ([id number]) [address] [place] [address] 96429 Protein [Mass/Vol] 6.7 g/dL Normal 6.0-8.0 [facility] Comment on above: Performed By: #### Alvarez ROBISON CMP, 3039-3 #### [facility] ([id number]) [address] [place] [address] 09714 Sodium [Moles/Vol] 139 mmol/L Normal 134-146 [facility] Comment on above: Performed By: #### Alvarez ROBISON CMP, 3039-3 #### [facility] ([id number]) [address] [place] [address] 83384 Urea nitrogen [Mass/Vol] 18 mg/dL Normal 5-23 [facility] Comment on above: Performed By: #### Alvarez ROBISON CMP, 3039-3 #### [facility] ([id number]) [address] [place] [address] 63073 LIPASEon 10-09-2024 Lipase [Catalytic activity/Vol] 66 U/L High 17-40 [facility] Comment on above: Performed By: #### Alvarez ROBISON CMP, 3039-3 #### [facility] ([id number]) [address] [place] [address] 83875 MAGNESIUMon 10-09-2024 Magnesium [Mass/Vol] 1.9 mg/dL Normal 1.8-2.6 [facility] Comment on above: Performed By: #### Alvarez ROBISON CMP, 3039-3 #### [facility] ([id number]) [address] [place] [address] 61290 CBC AND AUTO DIFFon 10-08-20 ABSOLUTE BASOPHIL 0.0 X10E9/L Normal 0.0-0.2 [facility] Comment on above: Performed By: #### Alvarez ROBISON CMP, 3039-3 #### [facility] ([id number]) [address] [place] [address] 27164 ABSOLUTE NEUTROPHIL 5.0 X10E9/L Normal 1.5-6.6 [facility] Comment on above: Performed By: #### Alvarez ROBISON CMP, 3 #### [facility] ([id number]) [address] [place] [address] 16302 Basophils/100 WBC (Bld) 0.4 % Normal [facility] Comment on above: Performed By: #### Alvarez ROBISON CMP, 3039-12 #### [facility] ([id number]) [address] [place] [address] 80526 Eosinophils (Bld) [#/Vol] 0.0 10*3/uL Normal 0.0-0.4 [facility] Comment on above: Performed By: #### Alvarez ROBISON CMP, 3039-12 #### [facility] ([id number]) [address] [place] [address] 95940 Eosinophils/100 WBC (Bld) 0.5 % Normal [facility] Comment on above: Performed By: #### Alvarez ROBISON CMP, 3039-12 #### [facility] ([id number]) [address] [place] [address] 76363 Erythrocyte distribution width (RBC) [Ratio] 12.7 % Normal 11.5-15.0 [facility] Comment on above: Performed By: #### Alvarez ROBISON CMP, 3039-12 #### [facility] ([id number]) [address] [place] [address] 86842 Hematocrit (Bld) [Volume fraction] 39.6 % Normal 39-49 [facility] Comment on above: Performed By: #### Alvarez ROBISON CMP, 3 #### [facility] ([id number]) [address] [place] [address] 29303 Hemoglobin (Bld) [Mass/Vol] 13.2 g/dL Normal 13.0-17.0 [facility] Comment on above: Performed By: #### C RICKI CMP, 3039-12 #### [facility] ([id number]) [address] [place] [address] 40729 Lymphocytes (Bld) [#/Vol] 1.4 10*3/uL Normal 1.0-3.5 [facility] Comment on above: Performed By: #### Alvarez ROBISON CMP, 3 #### [facility] ([id number]) [address] [place] [address] 84158 Lymphocytes/100 WBC (Bld) 20.8 % Normal [facility] Comment on above: Performed By: #### Alvarez ROBISON CMP, 3039-12 #### [facility] ([id number]) [address] [place] [address] 50705 MCH (RBC) [Entitic mass] 29.0 pg Normal 27-34 [facility] Comment on above: Performed By: #### Alvarez ROBISON CMP, 3039-12 #### [facility] ([id number]) [address] [place] [address] 47999 MCHC (RBC) [Mass/Vol] 33.3 g/dL Normal 32-36 [facility] Comment on above: Performed By: #### Alvarez ROBISON CMP, 3039-12 #### [facility] ([id number]) [address] [place] [address] 83274 MCV (RBC) [Entitic vol] 87 fL Normal 80-100 [facility] Comment on above: Performed By: #### Alvarez ROBISON CMP, 3039-12 #### [facility] ([id number]) [address] [place] [address] 45849 Monocytes (Bld) [#/Vol] 0.4 10*3/uL Normal 0-0.9 [facility] Comment on above: Performed By: #### Alvarez ROBISON CMP, 3 #### [facility] ([id number]) [address] [place] [address] 51591 Monocytes/100 WBC (Bld) 5.4 % Normal [facility] Comment on above: Performed By: #### Alvarez ROBISON, CMP, 3039-3 #### [facility] ([id number]) [address] [place] [address] 71321 Neutrophils/100 WBC (Bld) 72.9 % Normal [facility] Comment on above: Performed By: #### Alvarez ROBISON, CMP, 3039-3 #### [facility] ([id number]) [address] [place] [address] 45525 Platelet mean volume (Bld) [Entitic vol] 7.1 fL Normal 7-12 [facility] Comment on above: Performed By: #### Alvarez ROBISON CMP, 3 #### [facility] ([id number]) [address] [place] [address] 03047 Platelets (Bld) [#/Vol] 273 10*3/uL Normal 150-450 [facility] Comment on above: Performed By: #### Alvarez ROBISON, CMP, 3039-3 #### [facility] ([id number]) [address] [place] [address] 16763 RBC COUNT 4.54 X10E12/L Normal 4.10-5.70 [facility] Comment on above: Performed By: #### Alvarez ROBISON, CMP, 3039-3 #### [facility] ([id number]) [address] [place] [address] 77243 WBC (Bld) [#/Vol] 6.8 10*3/uL Normal 4.0-11.0 [facility] Comment on above: Performed By: #### Alvarez ROBISON, CMP, 0-3 #### [facility] ([id number]) [address] [place] [address] 34529 COMPREHENSIVE METABOLIC PANE [facility] 10-08-2024 Albumin [Mass/Vol] 4.1 g/dL Normal 3.2-5.3 [facility] Comment on above: Performed By: #### C JACKSON ROBISON, 3040-3 #### [facility] ([id number]) [address] [place] [address] 55829 ALP [Catalytic activity/Vol] 70 U/L Normal 39-130 [facility] Comment on above: Performed By: #### C JACKSON ROBISON, 3039-3 #### [facility] ([id number]) [address] [place] [address] 87434 ALT [Catalytic activity/Vol] 14 U/L Normal 0-40 [facility] Comment on above: Performed By: #### Alvarez ROBISON CMP, 3039-3 #### [facility] ([id number]) [address] [place] [address] 98802 Anion gap [Moles/Vol] 4 mmol/L Low 5-15 [facility] Comment on above: Performed By: #### C RICKI [facility], 3039-3 #### [facility] ([id number]) [address] [place] [address] 81648 AST [Catalytic activity/Vol] 18 U/L Normal 0-41 [facility] Comment on above: Performed By: #### Alvarez ROBISON CMP, 0-3 #### [facility] ([id number]) [address] [place] [address] 69450 Bilirubin [Mass/Vol] 0.6 mg/dL Normal 0.3-1.2 [facility] Comment on above: Performed By: #### C JACKSON ROBISON, 0-3 #### [facility] ([id number]) [address] [place] [address] 58722 Calcium [Mass/Vol] 9.4 mg/dL Normal 8.5-10.5 [facility] Comment on above: Performed By: #### C JACKSON ROBISON, 3040-3 #### [facility] ([id number]) [address] [place] [address] 69522 Chloride [Moles/Vol] 105 mmol/L Normal 98-109 [facility] Comment on above: Performed By: #### C RICKI [facility], 3039-3 #### [facility] ([id number]) [address] [place] [address] 20411 CO2 [Moles/Vol] 28 mmol/L Normal 22-32 [facility] Comment on above: Performed By: #### Alvarez ROBISON CMP, 3039-3 #### [facility] ([id number]) [address] [place] [address] 93800 Creatinine [Mass/Vol] 0.74 mg/dL Normal 0.70-1.20 [facility] Comment on above: Result Comment: METH OD TRACEABLE TO IDMS STANDARD Performed By: #### C JACKSON ROBISON, 3039-3 #### [facility] ([id number]) [address] [place] [address] 80988 eGFR (CKD-EPI) NON-RACE DEPENDENT >90 Normal >59 [facility] Comment on above: Result Comment: Reported eGFR is based on the CKD-EPI 2020 equation that does not use a race coefficient. Performed By: #### C JACKSON ROBISON, 0-3 #### [facility] ([id number]) [address] [place] [address] 29864 Glucose [Mass/Vol] 123 mg/dL High 65-99 [facility] Comment on above: Performed By: #### C JACKSON ROBISON, 0-3 #### [facility] ([id number]) [address] [place] [address] 16341 Potassium [Moles/Vol] 3.9 mmol/L Normal 3.5-5.0 [facility] Comment on above: Performed By: #### C BCA, CMP, 3040-3 #### [facility] ([id number]) [address] [place] [address] 58011 Protein [Mass/Vol] 7.1 g/dL Normal 6.0-8.0 [facility] Comment on above: Performed By: #### C BCA, CMP, 3040-3 #### [facility] ([id number]) [address] [place] [address] 84007 Sodium [Moles/Vol] 137 mmol/L Normal 134-146 [facility] Comment on above: Performed By: #### C BCA, CMP, 3040-3 #### [facility] ([id number]) [address] [place] [address] 96211 Urea nitrogen [Mass/Vol] 16 mg/dL Normal 5-23 [facility] Comment on above: Performed By: #### C BCA [facility], 3040-3 #### [facility] ([id number]) [address] [place] [address] ABDOMEN AND PELVIS W CONT on 10-08-2024 CT ABDOMEN AND PELVIS W CONT CT ABDOMEN AND PELVIS W CONT EXAM: ABDOMEN AND PELVIS CT WITH CONTRAST CLINICAL INFORMATION: Crohn's exacerbation; mid abd pain, hematochezia, history of Crohn's disease. TECHNIQUE: CT abdomen and pelvis was performed utilizing 5 mm axial reconstructions following the uneventful administration of nonionic intravenous contrast. Coronal and sagittal reformatted images as well as delayed excretory phase images were obtained and reviewed. Automated exposure control was utilized. COMPARISON: 08/10/2024 FINDINGS: The limited visualized lung bases are unremarkable. The liver is unremarkable. The gallbladder is absent. The spleen is normal. The pancreas is unremarkable. The right kidney is normal. The left kidney is normal. The adrenals are unremarkable. Stable postsurgical changes of the cecum. There are no dilated loops of bowel or evidence of pneumatosis or free air. There is no evidence for bowel inflammation. There is no significant free fluid. The abdominal aorta and common iliac arteries are normal in diameter. IMPRESSION: 1. No acute findings in the abdomen and pelvis. 2. Stable postsurgical changes of the cecum. There is no evidence for inflammatory changes of the bowel or bowel obstruction. All CT scans at this facility use dose modulation, iterative reconstruction, and/or weight based dosing when appropriate to reduce radiation dose to as low as reasonably achievable. Finalized by Ashkan Lainez MD on 10/08/2024 4:32 PM Normal [facility] LIPASEon 10-08-2024 Lipase [Catalytic activity/Vol] 50 U/L High 17-40 [facility] Comment on above: Performed By: #### Alvarez ROBISON CMP, 3040-3 #### [facility] ([id number]) [address] [place] [address] 33784 URN MACROSCOPIC NURon 2023 BILIRUBIN AMBROSIO Negative Normal NEG [facility] Comment on above: Performed By: #### Alvarez ROBISON CMP, 3040-3 #### [facility] ([id number]) [address] [place] [address] 66685 BLOOD/HGB AMBROSIO Negative Normal NEG [facility] Comment on above: Performed By: #### Alvarez ROBISON CMP, 3040-3 #### [facility] ([id number]) [address] [place] [address] 54138 GLUCOSE AMBROSIO Negative Normal NEG [facility] Comment on above: Performed By: #### Alvarez ROBISON CMP, 3040-3 #### [facility] ([id number]) [address] [place] [address] 43668 KETONES AMBROSIO Negative Normal NEG [facility] Comment on above: Performed By: #### Alvarez ROBISON CMP, 3040-3 #### [facility] ([id number]) [address] [place] [address] 25151 LEUKOCYTE ESTERASE AMBROSIO Negative Normal [facility]G [facility] Comment on above: Performed By: #### Alvarez ROBISON CMP, 3040-3 #### [facility] ([id number]) [address] [place] [address] 78690 NITRITE AMBROSIO Negative Normal NEG [facility] Comment on above: Performed By: #### C JACKSON ROBISON, 3040-3 #### [facility] ([id number]) [address] [place] [address] 93376 PH AMBROSIO 8.5 Normal 5.0-8.5 [facility] Comment on above: Performed By: #### Alvarez ROBISON [facility], 3039-3 #### [facility] ([id number]) [address] [place] [address] 44093 PROTEIN AMBROSIO Negative Normal NEG [facility] Comment on above: Performed By: #### Alvarez ROBISON [facility], 3039-3 #### [facility] ([id number]) [address] [place] [address] 44869 SPECIFIC GRAVITY AMBROSIO 1.015 Normal 1.003-1.035 [facility] Comment on above: Performed By: #### Alvarez ROBISON [facility], 3039-3 #### [facility] ([id number]) [address] [place] [address] 77522 UROBILINOGEN AMBROSIO 0.2 eu/dL Normal <1.1 [facility] Comment on above: Performed By: #### Alvarez ROBISON [facility], 304-3 #### [facility] ([id number]) [address] [place] [address] 27738 Chlamydia trachomatis DNA [P resence] in Specimen by MORGAN with probe detectionOrdered By: Radha Dee on 08-26-2024 C. trachomatis DNA MORGAN+probe Ql (Unsp spec) Chlamydia trachomatis DNA [Presence] in Specimen by MORGAN with probe detection Negative [facility] Chlamydia/GC/Trich NAAon Chlamydia Trachomotis, MORGAN Negative Normal Negative [facility] Comment on above: Performed By: #### G CCHLAMTRI #### [facility] , Neisseria Gonorrhoeae, MORGAN Negative Normal Negative [facility] Comment on above: Performed By: #### G CCHLAMTRI #### [facility] , Trichomonas MORGAN Negative Normal Negative [facility] Comment on above: Result Comment: Perf ormed at: =G - [facility] [place] [address] [place] W [id number] Scientific Helper: Monica Hsieh MD, Phone: [phone] PERFORMED BY: [facility] [address] [address] PATHOLOGIST TUBE MACHINE OPERATOR JOE NEWMAN M.D. Performed By: #### G CCHLAMTRI #### [facility] , Laboratory - Chemistry and C hemistry - challengeon 08-26-2024 Bilirubin Ql (U) Negative [facility] Glucose (U) [Mass/Vol] Negative [facility] Ketones Ql (U) Negative [facility] pH (U) 8.0 [pH] [facility] Specific gravity (U) [Rel density] 1.025 [facility] Urobilinogen (U) [Mass/Vol] 0.2 mg/dL [facility] Laboratory - Specimen inform ationon 08-26-2024 Appearance (U) cloudyandfrothy [facility] Color (U) yellow [facility] Laboratory - Urinalysison Leukocyte esterase Test strip Ql (U) Negative [facility] Nitrite Ql (U) Negative [facility] Protein Ql (U) Negative [facility] Neisseria gonorrhoeae DNA [P resence] in Specimen by MORGAN with probe detectionOrdered By: Radha Dee on 08-26-2024 N. gonorrhoeae DNA MORGAN+probe Ql (Unsp spec) Neisseria gonorrhoeae DNA [Presence] in Specimen by MORGAN with probe detection Negative [facility] No Panel Informationon 08-26 Urine Occult Blood Negative [facility] Trichomonas vaginalis DNA [P resence] in Specimen by MORGAN with probe detectionOrdered By: Radha Dee on 08-26-2024 T. vaginalis DNA MORGAN+probe Ql (Unsp spec) Trichomonas vaginalis DNA [Presence] in Specimen by MORGAN with probe detection Negative [facility] Comment on above: Performed at: =[facility] [address] [place] [id number] Director: Monica Hsieh MD, Phone: [phone] XR ABDOMEN AP 1 VWon 024 XR ABDOMEN AP 1 VW XR ABDOMEN AP 1 VW Abdomen single view Clinical history:Diffuse abdominal pain Comparison: None. Findings: AP supine view of the abdomen. Nonobstructive bowel gas pattern. Mild to moderate amount of gas and stool seen throughout the colon. Impression: Mild to moderate amount of gas and stool seen throughout the colon. Nonobstructive bowel gas pattern. Finalized by Tahmina Harvey MD on 08/16/2024 1:21 PM Normal [facility] CBC AND AUTO DIFFon 08-10-20 24 ABSOLUTE BASOPHIL 0.1 X10E9/L Normal 0.0-0.2 [facility] Comment on above: Performed By: #### C BCA, CMP #### [facility] ([id number]) [address] [place] [address]1971 ABSOLUTE NEUTROPHIL 3.4 X10E9/L Normal 1.5-6.6 [facility] Comment on above: Performed By: #### C BCA, CMP #### [facility] ([id number]) [address] [place] [address] 98858 Basophils/100 WBC (Bld) 1.2 % Normal [facility] Comment on above: Performed By: #### C BCA, CMP #### [facility] ([id number]) [address] [place] [address] 18563 Eosinophils (Bld) [#/Vol] 0.3 10*3/uL Normal 0.0-0.4 [facility] Comment on above: Performed By: #### C BCA, CMP #### [facility] ([id number]) [address] [place] [address] 22177 Eosinophils/100 WBC (Bld) 5.1 % Normal [facility] Comment on above: Performed By: #### C RICKI, CMP #### [facility] ([id number]) [address] [place] [address] 39868 Erythrocyte distribution width (RBC) [Ratio] 13.1 % Normal 11.5-15.0 [facility] Comment on above: Performed By: #### C RICKI, CMP #### [facility] ([id number]) [address] [place] [address] 93569 Hematocrit (Bld) [Volume fraction] 37.3 % Low 39-49 [facility] Comment on above: Performed By: #### C RICKI, CMP #### [facility] ([id number]) [address] [place] [address] 83570 Hemoglobin (Bld) [Mass/Vol] 12.5 g/dL Low 13.0-17.0 [facility] Comment on above: Performed By: #### C RICKI, CMP #### [facility] ([id number]) [address] [place] [address] 37623 Lymphocytes (Bld) [#/Vol] 1.9 10*3/uL Normal 1.0-3.5 [facility] Comment on above: Performed By: #### C RICKI, CMP #### [facility] ([id number]) [address] [place] [address] 54334 Lymphocytes/100 WBC (Bld) 29.9 % Normal [facility] Comment on above: Performed By: #### C RICKI, CMP #### [facility] ([id number]) [address] [place] [address] 09126 MCH (RBC) [Entitic mass] 29.8 pg Normal 27-34 [facility] Comment on above: Performed By: #### C BCA, CMP #### [facility] ([id number]) [address] [place] [address] 78746 MCHC (RBC) [Mass/Vol] 33.4 g/dL Normal 32-36 [facility] Comment on above: Performed By: #### C BCA, CMP #### [facility] ([id number]) [address] [place] [address] 80671 MCV (RBC) [Entitic vol] 89 fL Normal 80-100 [facility] Comment on above: Performed By: #### C BCA, CMP #### [facility] ([id number]) [address] [place] [address] 69184 Monocytes (Bld) [#/Vol] 0.7 10*3/uL Normal 0-0.9 [facility] Comment on above: Performed By: #### C RICKI, CMP #### [facility] ([id number]) [address] [place] [address] 07719 Monocytes/100 WBC (Bld) 11.1 % Normal [facility] Comment on above: Performed By: #### C RICKI, CMP #### [facility] ([id number]) [address] [place] [address] 97846 Neutrophils/100 WBC (Bld) 52.7 % Normal [facility] Comment on above: Performed By: #### C BCA, CMP #### [facility] ([id number]) [address] [place] [address] 73008 Platelet mean volume (Bld) [Entitic vol] 6.8 fL Low 7-12 [facility] Comment on above: Performed By: #### C BCA, CMP #### [facility] ([id number]) [address] [place] [address] 52008 Platelets (Bld) [#/Vol] 310 10*3/uL Normal 150-450 [facility] Comment on above: Performed By: #### C BCA, CMP #### [facility] ([id number]) [address] [place] [address] 64428 RBC COUNT 4.18 X10E12/L Normal 4.10-5.70 [facility] Comment on above: Performed By: #### C BCA, CMP #### [facility] ([id number]) [address] [place] [address] 93394 WBC (Bld) [#/Vol] 6.4 10*3/uL Normal 4.0-11.0 [facility] Comment on above: Performed By: #### C BCA, CMP #### [facility] ([id number]) [address] [place] [address] 58601 COMPREHENSIVE METABOLIC PANE [facility] 08-10-2024 Albumin [Mass/Vol] 4.0 g/dL Normal 3.2-5.3 [facility] Comment on above: Performed By: #### C BCA, CMP #### [facility] ([id number]) [address] [place] [address] 98692 ALP [Catalytic activity/Vol] 69 U/L Normal 39-130 [facility] Comment on above: Performed By: #### C BCA, CMP #### [facility] ([id number]) [address] [place] [address] 02003 ALT [Catalytic activity/Vol] 25 U/L Normal 0-40 [facility] Comment on above: Performed By: #### C BCA, CMP #### [facility] ([id number]) [address] [place] [address] 71667 Anion gap [Moles/Vol] 7 mmol/L Normal 5-15 [facility] Comment on above: Performed By: #### C BCA, CMP #### [facility] ([id number]) [address] [place] [address] 57144 AST [Catalytic activity/Vol] 20 U/L Normal 0-41 [facility] Comment on above: Performed By: #### C BCA, CMP #### [facility] ([id number]) [address] [place] [address] 37606 Bilirubin [Mass/Vol] 0.4 mg/dL Normal 0.3-1.2 [facility] Comment on above: Performed By: #### C BCA, CMP #### [facility] ([id number]) [address] [place] [address] 18986 Calcium [Mass/Vol] 9.5 mg/dL Normal 8.5-10.5 [facility] Comment on above: Performed By: #### C BCA, CMP #### [facility] ([id number]) [address] [place] [address] 68465 Chloride [Moles/Vol] 102 mmol/L Normal 98-109 [facility] Comment on above: Performed By: #### C BCA, CMP #### [facility] ([id number]) [address] [place] [address] 25446 CO2 [Moles/Vol] 29 mmol/L Normal 22-32 [facility] Comment on above: Performed By: #### C BCA, CMP #### [facility] ([id number]) [address] [place] [address] 07151 Creatinine [Mass/Vol] 0.72 mg/dL Normal 0.70-1.20 [facility] Comment on above: Result Comment: METH OD TRACEABLE TO IDMS STANDARD Performed By: #### C BCA, CMP #### [facility] ([id number]) [address] [place] [address] 91655 eGFR (CKD-EPI) NON-RACE DEPENDENT >90 Normal >59 [facility] Comment on above: Result Comment: Reported eGFR is based on the CKD-EPI 2020 equation that does not use a race coefficient. Performed By: #### C BCA, CMP #### [facility] ([id number]) [address] [place] [address] 18629 Glucose [Mass/Vol] 116 mg/dL High 65-99 [facility] Comment on above: Performed By: #### C BCA, CMP #### [facility] ([id number]) [address] [place] [address] 50781 Potassium [Moles/Vol] 3.5 mmol/L Normal 3.5-5.0 [facility] Comment on above: Performed By: #### C BCA, CMP #### [facility] ([id number]) [address] [place] [address] 88833 Protein [Mass/Vol] 7.0 g/dL Normal 6.0-8.0 [facility] Comment on above: Performed By: #### C BCA, CMP #### [facility] ([id number]) [address] [place] [address] 65159 Sodium [Moles/Vol] 138 mmol/L Normal 134-146 [facility] Comment on above: Performed By: #### C BCA, CMP #### [facility] ([id number]) [address] [place] [address] 26347 Urea nitrogen [Mass/Vol] 20 mg/dL Normal 5-23 [facility] Comment on above: Performed By: #### C BCA, CMP #### [facility] ([id number]) [address] [place] [address] ABDOMEN AND PELVIS W CONT on 08-10-2024 CT ABDOMEN AND PELVIS W CONT CT ABDOMEN AND PELVIS W CONT History: Abdominal pain Technique: Contiguous axial images through the abdomen pelvis were obtained following the administration of intravenous contrast material. Automated exposure control was utilized. Comparison: 07/15/2024 Findings: Postoperative changes in the right lower quadrant now seen and are new since previous examination. No complicating processes are identified. There is no evidence of any hepatic, splenic, adrenal, renal, or pancreatic abnormalities. Gallbladder has been surgically removed. No abdominal or retroperitoneal masses or adenopathy are seen. No pelvic masses, adenopathy, or fluid collections are identified. Limited images of the lung bases are unremarkable. Impression: Postoperative changes in the right lower quadrant, new since the previous examination of 07/15/2024. Otherwise normal CT abdomen and pelvis. All CT scans at this facility use dose modulation, iterative reconstruction, and/or weight based dosing when appropriate to reduce radiation dose to as low as reasonably achievable Finalized by Renée Malone MD on 08/10/2024 11:20 PM Normal [facility] Ambulatory Visit Summaryon 1 Ambulatory Visit Summary Ambulatory Visit Summary FRIENDWILLIAM :1995 Visit Date:07/29/2024 Ambulatory Visit Instructions Your Diagnosis Chest pain BMI 23.0-23.9, adult Vaping-related disorder Your Care Team Attending Physician - Casey Carpio MD Primary Care Physician - Casey Carpio MD This Is Your Medications List famotidine (Pepcid 20 mg Tab) Procedures Performed History of colectomy (07/11/2024), Arthroscopy of knee, Cholecystectomy, Epididymal cyst. Discharge Vitals Temperature (Oral) 36.8 ?C Heart Rate (Peripheral) 96 Respiratory Rate 16 Blood Pressure 110/70 Height 165 cm Height 65 in Weight 65.1 kg Weight 143.22 lb BMI 23.91 What to do next Scheduled Follow-Up Appointments Monday 1:00 PM EST With: Casey Carpio MD Where: [address] [address]- Medications What How Much When Why Instructions Unchanged famotidine (Pepcid 20 mg Tab) 1 Tablets By Mouth 2 times a day Chest pain BMI 25.0-25.9,adult Overweight Vaping-related disorder Allergies No Known Allergies Problems Ongoing - Any problem that you are currently receiving treatment for. Chest pain History of epididymitis Inguinal lymphadenopathy Rash Reactive lymphadenopathy Recurrent UTI Patient Survey You may receive a survey via text or e-mail asking about your office visit. Please share your experience with us by completing your survey. We appreciate your feedback and thank you for choosing us for your care. Normal [facility] Family Medicine Office/Clini c Noteon 07-29-2024 Family Medicine Office/Clinic Note Family Medicine Office/Clinic Note Chief Complaint The patient presents with chest pain. HPI Staff William is a 29 year old male presenting for one month follow up chest pain JOSEFA started on pepcid and sent to cardiology Had surgery end of jun. found out he had colitis and they took a portion of his rotted bowel out. Saw Dr Benson 07/08 says he was worthless. Didn't do anything for him or check him out Pepcid has not made a difference History of Present Illness The patient is a 29-year-old male presenting with concerns of chest pain. He reports that the chest pain is intermittent and possibly associated with an underlying condition, suspected to be Crohn's disease. The chest pain has been persistent, leading him to doubt previous consultations, specifically feeling that a prior applications developer visit was not helpful. This has motivated the patient to seek further evaluation and intervention from different specialists, including a studio potter and a applications developer. During the visit, the patient mentioned a history of surgical intervention, indicated by a surgical scar extending from the belly button to the pubic bone, which has been healing well post-operation. The patient alluded to the surgery in the context of addressing issues possibly related to Crohn's disease, an inflammatory condition which might also contribute to lymph node involvement described in his medical history. The patient is actively engaged in the management of potentially overlapping symptoms and complications arising from this condition, although there is expressed uncertainty about the exact cause of some of his symptoms such as the chest pain. There?s mention of colitis and lymphadenopathy previously noted, possibly in connection with Crohn's disease, raising concern about inflammatory processes affecting multiple systems, potentially explaining the current symptoms including chest pain. The patient acknowledges reading about the inflammatory nature of Crohn's disease and its potential systematic effects, supporting the multidisciplinary follow-up strategy he is pursuing. Review of Systems PHQ Score Initial Depression Screen Score: 0 SCORE - Gastrointestinal: Reports suspicion of Crohn's disease, post-operative state with a well-healing surgical scar. - Respiratory: Reports intermittent chest pain. Physical Exam Vitals & Measurements T: 36.8 ?C(Oral) HR: 96(Peripheral) RR: 16 BP: 110/70 SpO2: 98% HT: 65 in HT: 165 cm WT: 65.1 kg WT: 143.22 lb BMI: 23.91 General: alert, no acute distress ENMT: oral mucosa moist Cardiovascular: Regular rate and rhythm, normal peripheral perfusion Respiratory: Lungs clear to auscultation, respirations non labored Extremities: no deformity, no trauma Neurological: oriented x 4, level of consciousness appropriate for age, CN II-XII intact, motor strength equal & normal bilaterally, speech normal Abdomen: Soft, Non-tender, Non-distended, + Bowel sounds, surgical scar from belly button to pubic bone healing very nice Assessment/Plan 1. Chest pain (R07.9: Chest pain, unspecified) The patient reports intermittent chest pain and has expressed dissatisfaction with previous cardiology consultations. Given his suspicion that the chest pain may be related to an inflammatory disorder, such as Crohn's disease, current management includes pursuing alternative cardiology opinions and considering a connection to gastrointestinal issues. Further diagnostics might include imaging or stress testing as guided by the applications developer, as well as coordination with the gastrointestinal specialist. 2. Noninfective gastroenteritis and colitis, unspecified (K52.9) Although the patient referred to Crohn's disease as a suspected condition not yet definitively diagnosed, it appears to be a significant focus due to its potential role in current symptoms, including chest pain and previous surgical intervention. The patient should maintain regular follow-ups with a studio potter to evaluate and manage inflammation and any related symptoms. The role of inflammatory markers and potential treatment with immunosuppressants or biologic agents would be considered based on specialist recommendations. 3. BMI 23.0-23.9, adult (Z68.23: Body mass index [BMI] 23.0-23.9, adult) The patient's BMI falls within the 23.0-23.9 range for adults, which is generally considered within a normal range. No specific interventions are required at this time, but ongoing monitoring is recommended as part of routine health maintenance. 4. 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 While this was not directly discussed during the visit, it remains relevant due to potential respiratory implications and its interaction with the other conditions. Continued avoidance of vaping is recommended, and any further counseling or cessation support will be addressed as needed during follow-ups. Follow-up No qualifying data availabl (more content not included)... Normal [facility] Comment on above: Result Comment: Elec tronically Signed By: Christian SAXENA, Casey Schulz.br\Date and Time Signed: 07/29/24 13:34 EDT BASIC METABOLIC PANLon 07-22 Anion gap [Moles/Vol] 9 mmol/L Normal 5-15 [facility] Comment on above: Performed By: #### L IVR, 6793-4 #### [facility] ([id number]) [address], [address] [place] [address] Calcium [Mass/Vol] 9.6 mg/dL Normal 8.5-10.5 [facility] Comment on above: Performed By: #### L IVR, 6793-4 #### [facility] ([id number]) [address], [address] [place] [address] Chloride [Moles/Vol] 102 mmol/L Normal 98-109 [facility] Comment on above: Performed By: #### L IVR, 6793-4 #### [facility] ([id number]) [address], [address] [place] [address] CO2 [Moles/Vol] 28 mmol/L Normal 22-32 [facility] Comment on above: Performed By: #### L IVR, 6793-4 #### [facility] ([id number]) [address], [address] [place] [address] Creatinine [Mass/Vol] 0.59 mg/dL Low 0.60-1.30 [facility] Comment on above: Result Comment: METH OD TRACEABLE TO IDMS STANDARD Performed By: #### L IVR, 6793-4 #### [facility] ([id number]) [address], [address] [place] [address] eGFR (CKD-EPI) NON-RACE DEPENDENT >90 Normal >59 [facility] Comment on above: Result Comment: Reported eGFR is based on the CKD-EPI 2020 equation that does not use a race coefficient. Performed By: #### L IVR, 6793-4 #### [facility] ([id number]) [address], [address] [place] [address] Glucose [Mass/Vol] 99 mg/dL Normal 65-99 [facility] Comment on above: Performed By: #### L IVR, 6793-4 #### [facility] ([id number]) [address], [address] [place] [address] Potassium [Moles/Vol] 3.8 mmol/L Normal 3.5-5.0 [facility] Comment on above: Performed By: #### L IVR, 6793-4 #### [facility] ([id number]) [address] [place] [address] Sodium [Moles/Vol] 139 mmol/L Normal 134-146 [facility] Comment on above: Performed By: #### L IVR, 6793-4 #### [facility] ([id number]) [address], [address] [place] [address] Urea nitrogen [Mass/Vol] 9 mg/dL Normal 5-23 [facility] Comment on above: Performed By: #### L IVR, 6793-4 #### [facility] ([id number]) [address], [address] [place] [address] COMPLETE BLOOD COUNTon 07-22 Erythrocyte distribution width (RBC) [Ratio] 13.0 % Normal 11.5-15.0 [facility] Comment on above: Performed By: #### L IVR, 6793-4 #### [facility] ([id number]) [address], [address] [place] [address] Hematocrit (Bld) [Volume fraction] 40.4 % Normal 39-49 [facility] Comment on above: Performed By: #### L IVR, 6793-4 #### [facility] ([id number]) [address] [address] [place] [address] Hemoglobin (Bld) [Mass/Vol] 13.7 g/dL Normal 13.0-17.0 [facility] Comment on above: Performed By: #### L IVR, 6793-4 #### [facility] ([id number]) [address], [address] [place] [address] MCH (RBC) [Entitic mass] 30.3 pg Normal 27-34 [facility] Comment on above: Performed By: #### L IVR, 6793-4 #### [facility] ([id number]) [address] [place] [address] MCHC (RBC) [Mass/Vol] 33.9 g/dL Normal 32-36 [facility] Comment on above: Performed By: #### L IVR, 6793- #### [facility] ([id number]) [address] [address] [place] [address] MCV (RBC) [Entitic vol] 89 fL Normal 80-100 [facility] Comment on above: Performed By: #### L IVR, 6793- #### [facility] ([id number]) [address] [address] [place] [address] Platelet mean volume (Bld) [Entitic vol] 7.2 fL Normal 7-12 [facility] Comment on above: Performed By: #### L IVR, 6793- #### [facility] ([id number]) [address] [address] [place] [address] Platelets (Bld) [#/Vol] 242 10*3/uL Normal 150-450 [facility] Comment on above: Performed By: #### L IVR, 6793-4 #### [facility] ([id number]) [address] [address] [place] [address] RBC COUNT 4.53 X10E12/L Normal 4.10-5.70 [facility] Comment on above: Performed By: #### L IVR, 6793-4 #### [facility] ([id number]) [address], [address] [place] [address] WBC (Bld) [#/Vol] 6.4 10*3/uL Normal 4.0-11.0 [facility] Comment on above: Performed By: #### L IVR, 6793-4 #### [facility] ([id number]) [address] [place] [address] MAGNESIUMon 07-22-2024 Magnesium [Mass/Vol] 1.8 mg/dL Normal 1.8-2.6 [facility] Comment on above: Performed By: #### L IVR, 6793-4 #### [facility] ([id number]) [address], [address] [place] [address] PHOSPHORUSon 07-22-2024 Phosphate [Mass/Vol] 3.5 mg/dL Normal 2.4-4.9 [facility] Comment on above: Performed By: #### L IVR, 6793-4 #### [facility] ([id number]) [address] [place] [address] BASIC METABOLIC PANLon 07-21 Anion gap [Moles/Vol] 9 mmol/L Normal 5-15 [facility] Comment on above: Performed By: #### L IVR, 6793-4 #### [facility] ([id number]) [address], [address] [place] [address] Calcium [Mass/Vol] 9.4 mg/dL Normal 8.5-10.5 [facility] Comment on above: Performed By: #### L IVR, 6793-4 #### [facility] ([id number]) [address] [place] [address] Chloride [Moles/Vol] 103 mmol/L Normal 98-109 [facility] Comment on above: Performed By: #### L IVR, 6793-4 #### [facility] ([id number]) [address] [facility] [address] [place] [address] CO2 [Moles/Vol] 28 mmol/L Normal 22-32 [facility] Comment on above: Performed By: #### L IVR, 93-4 #### [facility] ([id number]) [address] [place] [address] Creatinine [Mass/Vol] 0.67 mg/dL Normal 0.60-1.30 [facility] Comment on above: Result Comment: METH OD TRACEABLE TO IDMS STANDARD Performed By: #### L IVR, 6793-4 #### [facility] ([id number]) [address] [place] [address] eGFR (CKD-EPI) NON-RACE DEPENDENT >90 Normal >59 [facility] Comment on above: Result Comment: Reported eGFR is based on the CKD-EPI 2020 equation that does not use a race coefficient. Performed By: #### L IVR, 6793-4 #### [facility] ([id number]) [address] [address] [place] [address] Glucose [Mass/Vol] 89 mg/dL Normal 65-99 [facility] Comment on above: Performed By: #### L IVR, 6793-4 #### [facility] ([id number]) [address] [address] [place] [address] Potassium [Moles/Vol] 3.8 mmol/L Normal 3.5-5.0 [facility] Comment on above: Performed By: #### L IVR, 6793-4 #### [facility] ([id number]) [address] [place] [address] Sodium [Moles/Vol] 140 mmol/L Normal 134-146 [facility] Comment on above: Performed By: #### L IVR, 6793-4 #### [facility] ([id number]) [address] [place] [address] Urea nitrogen [Mass/Vol] 7 mg/dL Normal 5-23 [facility] Comment on above: Performed By: #### L IVR, 6792- #### [facility] ([id number]) [address] [facility] [address] [place] [address] COMPLETE BLOOD COUNTon 07-21 Erythrocyte distribution width (RBC) [Ratio] 12.9 % Normal 11.5-15.0 [facility] Comment on above: Performed By: #### L IVR, 93-4 #### [facility] ([id number]) [address], [facility] [address] [place] [address] Hematocrit (Bld) [Volume fraction] 39.1 % Normal 39-49 [facility] Comment on above: Performed By: #### L IVR, 6793-4 #### [facility] ([id number]) [address] [place] [address] Hemoglobin (Bld) [Mass/Vol] 13.3 g/dL Normal 13.0-17.0 [facility] Comment on above: Performed By: #### L IVR, 6793- #### [facility] ([id number]) [address], [address] [place] [address] MCH (RBC) [Entitic mass] 30.3 pg Normal 27-34 [facility] Comment on above: Performed By: #### L IVR, 6793-4 #### [facility] ([id number]) [address], [address] [place] [address] MCHC (RBC) [Mass/Vol] 33.9 g/dL Normal 32-36 [facility] [place] [facility] Comment on above: Performed By: #### L IVR, 6793-4 #### [facility] ([id number]) [address], [address] [place] [address] MCV (RBC) [Entitic vol] 89 fL Normal 80-100 [facility] Comment on above: Performed By: #### L IVR, 6793- #### [facility] ([id number]) [address] [place] [address] Platelet mean volume (Bld) [Entitic vol] 7.1 fL Normal 7-12 [facility] Comment on above: Performed By: #### L IVR, 6793- #### [facility] ([id number]) [address], [address] [place] [address] Platelets (Bld) [#/Vol] 215 10*3/uL Normal 150-450 [facility] Comment on above: Performed By: #### L IVR, 6793- #### [facility] ([id number]) [address] [place] [address] RBC COUNT 4.38 X10E12/L Normal 4.10-5.70 [facility] Comment on above: Performed By: #### L IVR, 6793- #### [facility] ([id number]) [address] [place] [address] WBC (Bld) [#/Vol] 6.8 10*3/uL Normal 4.0-11.0 [facility] Comment on above: Performed By: #### L IVR, 6793- #### [facility] ([id number]) [address] [place] [address] MAGNESIUMon 07-21-2024 Magnesium [Mass/Vol] 1.9 mg/dL Normal 1.8-2.6 [facility] Comment on above: Performed By: #### L IVR, 6793-4 #### [facility] ([id number]) [address] [place] [address] PHOSPHORUSon 07-21-2024 Phosphate [Mass/Vol] 3.0 mg/dL Normal 2.4-4.9 [facility] Comment on above: Performed By: #### L IVR, 6793-4 #### [facility] ([id number]) [address] [place] [address] BASIC METABOLIC PANLon 07-20 Anion gap [Moles/Vol] 10 mmol/L Normal 5-15 [facility] Comment on above: Performed By: #### L IVR, 6793-4 #### [facility] ([id number]) [address] [place] [address] Calcium [Mass/Vol] 9.2 mg/dL Normal 8.5-10.5 [facility] Comment on above: Performed By: #### L IVR, 6793-4 #### [facility] ([id number]) [address] [place] [address] Chloride [Moles/Vol] 102 mmol/L Normal 98-109 [facility] Comment on above: Performed By: #### L IVR, 6793-4 #### [facility] ([id number]) [address] [place] [address] CO2 [Moles/Vol] 29 mmol/L Normal 22-32 [facility] Comment on above: Performed By: #### L IVR, 6793-4 #### [facility] ([id number]) [address] [place] [address] Creatinine [Mass/Vol] 0.85 mg/dL Normal 0.60-1.30 [facility] Comment on above: Result Comment: METH OD TRACEABLE TO IDMS STANDARD Performed By: #### L IVR, 6793-4 #### [facility] ([id number]) [address], [facility] [address] [place] [address] eGFR (CKD-EPI) NON-RACE DEPENDENT >90 Normal >59 [facility] Comment on above: Result Comment: Reported eGFR is based on the CKD-EPI 2020 equation that does not use a race coefficient. Performed By: #### L IVR, 6793-4 #### [facility] ([id number]) [address] [place] [address] Glucose [Mass/Vol] 84 mg/dL Normal 65-99 [facility] Comment on above: Performed By: #### L IVR, 6793-4 #### [facility] ([id number]) [address] [place] [address] Potassium [Moles/Vol] 3.6 mmol/L Normal 3.5-5.0 [facility] Comment on above: Performed By: #### L IVR, 6793-4 #### [facility] ([id number]) [address] [place] [address] Sodium [Moles/Vol] 141 mmol/L Normal 134-146 [facility] Comment on above: Performed By: #### L IVR, 6793-4 #### [facility] ([id number]) [address] [place] [address] Urea nitrogen [Mass/Vol] 9 mg/dL Normal 5-23 [facility] Comment on above: Performed By: #### L IVR, 6793-4 #### [facility] ([id number]) [address] [place] [address] COMPLETE BLOOD COUNTon 07-20 Erythrocyte distribution width (RBC) [Ratio] 12.8 % Normal 11.5-15.0 [facility] Comment on above: Performed By: #### L IVR, 6793-4 #### [facility] ([id number]) [address] [place] [address] Hematocrit (Bld) [Volume fraction] 38.7 % Low 39-49 [facility] Comment on above: Performed By: #### L IVR, 93- #### [facility] ([id number]) [address] [place] [address] Hemoglobin (Bld) [Mass/Vol] 13.1 g/dL Normal 13.0-17.0 [facility] Comment on above: Performed By: #### L IVR, 6792- #### [facility] ([id number]) [address], [facility] [address] [place] [address] MCH (RBC) [Entitic mass] 30.0 pg Normal 27-34 [facility] Comment on above: Performed By: #### L IVR, 6792- #### [facility] ([id number]) [address], [address] [place] [address] MCHC (RBC) [Mass/Vol] 33.8 g/dL Normal 32-36 [facility] Comment on above: Performed By: #### L IVR, 93- #### [facility] ([id number]) [address], [address] [place] [address] MCV (RBC) [Entitic vol] 89 fL Normal 80-100 [facility] Comment on above: Performed By: #### L IVR, 93- #### [facility] ([id number]) [address] [place] [address] Platelet mean volume (Bld) [Entitic vol] 6.9 fL Low 7-12 [facility] Comment on above: Performed By: #### L IVR, 6793- #### [facility] ([id number]) [address] [place] [address] Platelets (Bld) [#/Vol] 218 10*3/uL Normal 150-450 [facility] Comment on above: Performed By: #### L IVR, 6793- #### [facility] ([id number]) [address], [facility] [address] [place] [address] RBC COUNT 4.36 X10E12/L Normal 4.10-5.70 [facility] Comment on above: Performed By: #### L IVR, 93- #### [facility] ([id number]) [address], [facility] [address] [place] [address] WBC (Bld) [#/Vol] 7.3 10*3/uL Normal 4.0-11.0 [facility] Comment on above: Performed By: #### L IVR, 93- #### [facility] ([id number]) [address], [address] [place] [address] MAGNESIUMon 07-20-2024 Magnesium [Mass/Vol] 2.2 mg/dL Normal 1.8-2.6 [facility] Comment on above: Performed By: #### L IVR, 6793- #### [facility] ([id number]) [address], [address] [place] [address] Magnesium [Mass/Vol] 1.7 mg/dL Low 1.8-2.6 [facility] Comment on above: Performed By: #### L IVR, 6793- #### [facility] ([id number]) [address], [address] [place] [address] PHOSPHORUSon 07-20-2024 Phosphate [Mass/Vol] 2.9 mg/dL Normal 2.4-4.9 [facility] Comment on above: Performed By: #### L IVR, 6793- #### [facility] ([id number]) [address] [place] [address] POTASSIUMon 07-20-2024 Potassium [Moles/Vol] 3.6 mmol/L Normal 3.5-5.0 [facility] Comment on above: Performed By: #### L IVR, 6793-4 #### [facility] ([id number]) [address] [place] [address] BASIC METABOLIC PANLon 07-19 Anion gap [Moles/Vol] 8 mmol/L Normal 5-15 [facility] Comment on above: Performed By: #### 5 4067-4, 11165-3 #### [facility] ([id number]) [address], [address] [place] [address] Calcium [Mass/Vol] 9.0 mg/dL Normal 8.5-10.5 [facility] Comment on above: Performed By: #### 5 4067-4, 73424-3 #### [facility] ([id number]) [address] [place] [address] Chloride [Moles/Vol] 101 mmol/L Normal 98-109 [facility] Comment on above: Performed By: #### 5 4067-4, 90898-9 #### [facility] ([id number]) [address] [place] [address] CO2 [Moles/Vol] 28 mmol/L Normal 22-32 [facility] Comment on above: Performed By: #### 5 4067-4, 74128-5 #### [facility] ([id number]) [address] [place] [address] Creatinine [Mass/Vol] 0.85 mg/dL Normal 0.60-1.30 [facility] Comment on above: Result Comment: METH OD TRACEABLE TO IDMS STANDARD Performed By: #### 5 4067-4, 55033-1 #### [facility] ([id number]) [address], [address] [place] [address] eGFR (CKD-EPI) NON-RACE DEPENDENT >90 Normal >59 [facility] Comment on above: Result Comment: Reported eGFR is based on the CKD-EPI 2020 equation that does not use a race coefficient. Performed By: #### 5 4067-4, 39628-9 #### [facility] ([id number]) [address], [address] [place] [address] Glucose [Mass/Vol] 108 mg/dL High 65-99 [facility] Comment on above: Performed By: #### 5 4067-4, 91080-4 #### [facility] ([id number]) [address], [address] [place] [address] Potassium [Moles/Vol] 4.4 mmol/L Normal 3.5-5.0 [facility] Comment on above: Performed By: #### 5 4067-4, 97392-2 #### [facility] ([id number]) [address] [place] [address] Sodium [Moles/Vol] 137 mmol/L Normal 134-146 [facility] Comment on above: Performed By: #### 5 4067-4, 52198-9 #### [facility] ([id number]) [address], [address] [place] [address] Urea nitrogen [Mass/Vol] 8 mg/dL Normal 5-23 [facility] Comment on above: Performed By: #### 5 4067-4, 40773-6 #### [facility] ([id number]) [address] [place] [address] COMPLETE BLOOD COUNTon 07-19 Erythrocyte distribution width (RBC) [Ratio] 12.7 % Normal 11.5-15.0 [facility] Comment on above: Performed By: #### 5 4067-4, 77684-8 #### [facility] ([id number]) [address], [address] [place] [address] Hematocrit (Bld) [Volume fraction] 38.9 % Low 39-49 [facility] Comment on above: Performed By: #### 5 4067-4, 49411-9 #### [facility] ([id number]) [address] [place] [address] Hemoglobin (Bld) [Mass/Vol] 13.5 g/dL Normal 13.0-17.0 [facility] Comment on above: Performed By: #### 5 4067-4, 85762-6 #### [facility] ([id number]) [address] [place] [address] MCH (RBC) [Entitic mass] 30.5 pg Normal 27-34 [facility] Comment on above: Performed By: #### 5 4067-4, 92291-3 #### [facility] ([id number]) [address] [place] [address] MCHC (RBC) [Mass/Vol] 34.7 g/dL Normal 32-36 [facility] Comment on above: Performed By: #### 5 4067-4, 53103-1 #### [facility] ([id number]) [address], [address] [place] [address] MCV (RBC) [Entitic vol] 88 fL Normal 80-100 [facility] Comment on above: Performed By: #### 5 4067-4, 68056-5 #### [facility] ([id number]) [address], [address] [place] [address] Platelet mean volume (Bld) [Entitic vol] 6.9 fL Low 7-12 [facility] Comment on above: Performed By: #### 5 4067-4, 24932-4 #### [facility] ([id number]) [address], [address] [place] [address] Platelets (Bld) [#/Vol] 245 10*3/uL Normal 150-450 [facility] Comment on above: Performed By: #### 5 4067-4, 42488-7 #### [facility] ([id number]) [address], [address] [place] [address] RBC COUNT 4.42 X10E12/L Normal 4.10-5.70 [facility] Comment on above: Performed By: #### 5 4067-4, 81071-9 #### [facility] ([id number]) [address], [facility] [address] [place] [address] WBC (Bld) [#/Vol] 12.4 10*3/uL High 4.0-11.0 [facility] Comment on above: Performed By: #### 5 4067-4, 93763-3 #### [facility] ([id number]) [address] [place] [address] MAGNESIUMon 07-19-2024 Magnesium [Mass/Vol] 2.0 mg/dL Normal 1.8-2.6 [facility] Comment on above: Performed By: #### 5 4067-4, 92166-6 #### [facility] ([id number]) [address] [place] [address] PHOSPHORUSon 07-19-2024 Phosphate [Mass/Vol] 4.5 mg/dL Normal 2.4-4.9 [facility] Comment on above: Performed By: #### 5 4067-4, 66528-3 #### [facility] ([id number]) [address], [address] [place] [address] BASIC METABOLIC PANLon 07-18 Anion gap [Moles/Vol] 7 mmol/L Normal 5-15 [facility] Comment on above: Performed By: #### 5 4067-4, 96581-6 #### [facility] ([id number]) [address], [address] [place] [address] Calcium [Mass/Vol] 9.3 mg/dL Normal 8.5-10.5 [facility] Comment on above: Performed By: #### 5 4067-4, 03456-2 #### [facility] ([id number]) [address] [place] [address] Chloride [Moles/Vol] 104 mmol/L Normal 98-109 [facility] Comment on above: Performed By: #### 5 4067-4, 83722-2 #### [facility] ([id number]) [address] [place] [address] CO2 [Moles/Vol] 30 mmol/L Normal 22-32 [facility] Comment on above: Performed By: #### 5 4067-4, 53684-1 #### [facility] ([id number]) [address] [place] [address] Creatinine [Mass/Vol] 0.74 mg/dL Normal 0.60-1.30 [facility] Comment on above: Result Comment: METH OD TRACEABLE TO IDMS STANDARD Performed By: #### 5 4067-4, 63822-0 #### [facility] ([id number]) [address] [place] [address] eGFR (CKD-EPI) NON-RACE DEPENDENT >90 Normal >59 [facility] Comment on above: Result Comment: Reported eGFR is based on the CKD-EPI 2020 equation that does not use a race coefficient. Performed By: #### 5 4067-4, 05981-6 #### [facility] ([id number]) [address] [place] [address] Glucose [Mass/Vol] 80 mg/dL Normal 65-99 [facility] Comment on above: Performed By: #### 5 4067-4, 80925-3 #### [facility] ([id number]) [address] [place] [address] Potassium [Moles/Vol] 3.9 mmol/L Normal 3.5-5.0 [facility] Comment on above: Performed By: #### 5 4067-4, 74942-8 #### [facility] ([id number]) [address] [place] [address] Sodium [Moles/Vol] 141 mmol/L Normal 134-146 [facility] Comment on above: Performed By: #### 5 4067-4, 19122-3 #### [facility] ([id number]) [address] [place] [address] Urea nitrogen [Mass/Vol] 5 mg/dL Normal 5-23 [facility] Comment on above: Performed By: #### 5 4067-4, 00208-1 #### [facility] ([id number]) [address] [place] [address] COMPLETE BLOOD COUNTon 07-18 Erythrocyte distribution width (RBC) [Ratio] 12.7 % Normal 11.5-15.0 [facility] Comment on above: Performed By: #### 5 4067-4, 20964-6 #### [facility] ([id number]) [address] [place] [address] Hematocrit (Bld) [Volume fraction] 40.4 % Normal 39-49 [facility] Comment on above: Performed By: #### 5 4067-4, 51079-2 #### [facility] ([id number]) [address] [place] [address] Hemoglobin (Bld) [Mass/Vol] 13.6 g/dL Normal 13.0-17.0 [facility] Comment on above: Performed By: #### 5 4067-4, 87126-8 #### [facility] ([id number]) [address] [place] [address] MCH (RBC) [Entitic mass] 30.3 pg Normal 27-34 [facility] Comment on above: Performed By: #### 5 4067-4, 47437-8 #### [facility] ([id number]) [address] [place] [address] MCHC (RBC) [Mass/Vol] 33.7 g/dL Normal 32-36 [facility] Comment on above: Performed By: #### 5 4067-4, 31786-2 #### [facility] ([id number]) [address] [place] [address] MCV (RBC) [Entitic vol] 90 fL Normal 80-100 [facility] Comment on above: Performed By: #### 5 4067-4, 93505-3 #### [facility] ([id number]) [address] [place] [address] Platelet mean volume (Bld) [Entitic vol] 7.1 fL Normal 7-12 [facility] Comment on above: Performed By: #### 5 4067-4, 59295-4 #### [facility] ([id number]) [address] [place] [address] Platelets (Bld) [#/Vol] 233 10*3/uL Normal 150-450 [facility] Comment on above: Performed By: #### 5 4067-4, 17575-1 #### [facility] ([id number]) [address], [facility] [address] [place] [address] RBC COUNT 4.50 X10E12/L Normal 4.10-5.70 [facility] Comment on above: Performed By: #### 5 4067-4, 16227-2 #### [facility] ([id number]) [address] [place] [address] WBC (Bld) [#/Vol] 6.9 10*3/uL Normal 4.0-11.0 [facility] Comment on above: Performed By: #### 5 4067-4, 12096-4 #### [facility] ([id number]) [address] [place] [address] MAGNESIUMon 07-18-2024 Magnesium [Mass/Vol] 2.2 mg/dL Normal 1.8-2.6 [facility] Comment on above: Performed By: #### 5 4067-4, 81760-0 #### [facility] ([id number]) [address] [facility] [address] [place] [address] PHOSPHORUSon 07-18-2024 Phosphate [Mass/Vol] 3.3 mg/dL Normal 2.4-4.9 [facility] Comment on above: Performed By: #### 5 4067-4, 72612-2 #### [facility] ([id number]) [address] [facility] [place] [address] Surgical Pathologyon 024 Surgical Pathology Normal [facility] Comment on above: Result Comment: [facility] [address] [place] [address] Surgical Pathology Consultation Patient Name:FRIENDWILLIAM:1995 (Age: 29)Gender:MTaken:4Reported:07/23/2024hysician(s):Spencer Gates M.D. ( )Copy To: Rec. #:[id number]: #[id number] Final Pathologic Diagnosis Right colectomy: Severely active Crohn's disease, involving terminal ileum and ileocecal valve with stricture formation. Inflammatory pseudopolyps. No granuloma, dysplasia or viral inclusions identified. No malignancy identified. Resection margins, free of Crohn's disease Appendix with fibrous obliteration of its lumen. Nine benign regional lymph nodes. Report Electronically Signed Out [facility]/07/23/2024Moises Blunt M.D. Interpretation performed at [facility], [facility] [place] [place] [id number], License number: [id number]. Clinical History Crohn's stricture. Gross Description Received in formalin labeled, FRIEND, ileum, cecum and segment ascending colon is a colectomy that consists of a 6 cm segment of colon with ileocecal valve and 10 cm segment of distal terminal ileum. The colon is resected with a vermiform appendix 5 x 0.8 x 0.7 cm. The serosal surface is sanchez-moreau with reddish-brown adhesions on the colon serosa. Both margins are closed by metallic grayson. The colon is resected with underlying mesocolon is much as 7 x 3 cm. The colon is opened. The cecum is remarkable for a mucosal induration 1 x 0.9 cm. This indurated area abuts the ileocecal valve. The remaining colon mucosa is pink-moreau, erythematous, with exaggerated folds. The small bowel mucosa is remarkable for a retracted indurated area abutting the ileocecal valve 1 x 0.5 cm. The remaining small bowel mucosa is moreau-sanchez and in the typical folded pattern. Multiple solar sales representative sections are submitted from proximal to distal. The indurated areas are submitted entirely. The appendix serosa is moreau-sanchez with filmy sanchez adhesions. Serial sections exhibit a pinpoint lumen. No serosal defect or ruptures identified grossly. No fecalith is identified grossly. Shearer Operator sections are submitted. Nine lymph nodes are identified within the adipose tissue that range from 0.4 to 0.9 cm in greatest dimension. The lymph nodes are submitted intact. Cassettes: A proximal margin B-C proximal small bowel mucosa D-E small bowel indurated area to include ileocecal valve F-I cecal indurated area to include ileocecal valve J distal colon mucosa K distal margin L appendix M 5 lymph nodes of submitted intact N 4 lymph nodes submitted intact (14, ss, [id number], m2) [facility]/4CJB Specimen(s) Received Ileum, cecum and segment of ascending colon Fee Codes(s): 1; 70834 BASIC METABOLIC PANLon 07-17 Anion gap [Moles/Vol] 5 mmol/L Normal 5-15 [facility] Comment on above: Performed By: #### 5 4067-4, 73048-6 #### [facility] ([id number]) [address], [address] [place] [address] Calcium [Mass/Vol] 9.2 mg/dL Normal 8.5-10.5 [facility] Comment on above: Performed By: #### 5 4067-4, 71199-4 #### [facility] ([id number]) [address], [address] [place] [address] Chloride [Moles/Vol] 103 mmol/L Normal 98-109 [facility] Comment on above: Performed By: #### 5 4067-4, 41746-5 #### [facility] ([id number]) [address], [address] [place] [address] CO2 [Moles/Vol] 32 mmol/L Normal 22-32 [facility] Comment on above: Performed By: #### 5 4067-4, 55190-2 #### [facility] ([id number]) [address], [address] [place] [address] Creatinine [Mass/Vol] 0.76 mg/dL Normal 0.60-1.30 [facility] Comment on above: Result Comment: METH OD TRACEABLE TO IDMS STANDARD Performed By: #### 5 4067-4, 13094-1 #### [facility] [facility] ([id number]) [address], [address] [place] [address] eGFR (CKD-EPI) NON-RACE DEPENDENT >90 Normal >59 [facility] Comment on above: Result Comment: Reported eGFR is based on the CKD-EPI 2020 equation that does not use a race coefficient. Performed By: #### 5 4067-4, 06715-9 #### [facility] ([id number]) [address] [place] [address] Glucose [Mass/Vol] 80 mg/dL Normal 65-99 [facility] Comment on above: Performed By: #### 5 4067-4, 08217-2 #### [facility] ([id number]) [address], [address] [place] [address] Potassium [Moles/Vol] 4.0 mmol/L Normal 3.5-5.0 [facility] Comment on above: Performed By: #### 5 4067-4, 16512-6 #### [facility] ([id number]) [address], [address] [place] [address] Sodium [Moles/Vol] 140 mmol/L Normal 134-146 [facility] Comment on above: Performed By: #### 5 4067-4, 63427-0 #### [facility] ([id number]) [address], [address] [place] [address] Urea nitrogen [Mass/Vol] 5 mg/dL Normal 5-23 [facility] Comment on above: Performed By: #### 5 4067-4, 64467-7 #### [facility] ([id number]) [address], [address] [place] [address] COMPLETE BLOOD COUNTon 07-17 Erythrocyte distribution width (RBC) [Ratio] 12.9 % Normal 11.5-15.0 [facility] Comment on above: Performed By: #### 5 4067-4, 16021-7 #### [facility] ([id number]) [address], [address] [place] [address] Hematocrit (Bld) [Volume fraction] 39.9 % Normal 39-49 [facility] Comment on above: Performed By: #### 5 4067-4, 74366-9 #### [facility] ([id number]) [address], [address] [place] [address] Hemoglobin (Bld) [Mass/Vol] 13.3 g/dL Normal 13.0-17.0 [facility] Comment on above: Performed By: #### 5 4067-4, 57354-8 #### [facility] ([id number]) [address], [address] [place] [address] MCH (RBC) [Entitic mass] 29.9 pg Normal 27-34 [facility] Comment on above: Performed By: #### 5 4067-4, 47167-2 #### [facility] ([id number]) [address], [address] [place] [address] MCHC (RBC) [Mass/Vol] 33.4 g/dL Normal 32-36 [facility] Comment on above: Performed By: #### 5 4067-4, 84082-2 #### [facility] ([id number]) [address], [address] [place] [address] MCV (RBC) [Entitic vol] 90 fL Normal 80-100 [facility] Comment on above: Performed By: #### 5 4067-4, 87477-6 #### [facility] ([id number]) [address], [address] [place] [address] Platelet mean volume (Bld) [Entitic vol] 7.0 fL Normal 7-12 [facility] Comment on above: Performed By: #### 5 4067-4, 81114-7 #### [facility] ([id number]) [address], [address] [place] [address] Platelets (Bld) [#/Vol] 223 10*3/uL Normal 150-450 [facility] Comment on above: Performed By: #### 5 4067-4, 76853-6 #### [facility] ([id number]) [address], [address] [place] [address] RBC COUNT 4.45 X10E12/L Normal 4.10-5.70 [facility] Comment on above: Performed By: #### 5 4067-4, 66998-3 #### [facility] ([id number]) [address], [address] [place] [address] WBC (Bld) [#/Vol] 4.8 10*3/uL Normal 4.0-11.0 [facility] Comment on above: Performed By: #### 5 4067-4, 72653-0 #### [facility] ([id number]) [address], [address] [place] [address] HBV core Ab IA Qlon 07-17-20 ANTI HBc Negative Normal NEG [facility] Comment on above: Performed By: #### 5 4067-4, 06915-8 #### [facility] ([id number]) [address], [address] [place] [address] HBV surface Ab IA Qnon 07-17 Anti HBs quant. <8.00 Normal [facility] Comment on above: Result Comment: Vacc inated: >=12mIU/mL, Positive (Immune) Unvaccinated: <8mIU/mL, Negative (Not Immune) 8-11.99 mIU/mL: Indeterminate, (Considered Not Immune) Performed By: #### 5 4067-4, 49135-7 #### [facility] ([id number]) [address], [address] [place] [address] HBV surface Ag IA Qlon 07-17 HEPATITIS B SURF AG Negative Normal NEG [facility] Comment on above: Performed By: #### 5 4067-4, 26156-8 #### [facility] ([id number]) [address], [address] [place] [address] HCV Ab IA Qlon 07-17-2024 ANTI HCV W/PCR REFLX Non-Reactive Normal NRCT Pr [facility] Comment on above: Result Comment: If recent infection suspected, recommend repeat testing (>2 months). Fundpc-cu-ccaulk ratio is <0.80. Performed By: #### 5 4067-4, 50336-6 #### [facility] ([id number]) [address] [place] [address] M. tuberculosis stim IFN-g p yesy (Bld)on 07-17-2024 Mitogen minus Nil Result 7.30 IU/mL Normal [facility] Nil Result 0.01 IU/mL Normal [facility] Comment on above: Result Comment: NOTE Test Performed by: [facility] [address] [place] [address] Scientific Helper: Kristina Quintana Ph.D.; CLIA# [id number] QuantiFERON-Tb Gold Plus Result Negative Normal Negative [facility] Comment on above: Result Comment: NOTE No interferon-gamma response to M. tuberculosis antigens was detected. Latent infection with M. tuberculosis is unlikely. A single negative result does not exclude infection with M. tuberculosis. In patients at high risk for M.tuberculosis infection, a second test should be considered in accordance with the 2017 ATS/IDSA/CDC Clinical Practice Guidelines for Diagnosis of Tuberculosis in Adults and Children [Lewinsohn DM et. al. Clin. Infect. Dis. 2017;64(2):111-115]. The reference range for the 'TB1 Ag minus Nil Result' and 'TB2 Ag minus Nil Result' is an Interferon-gamma level <0.35 IU/mL. TB1 Ag minus Nil Result 0.00 IU/mL Normal [facility] TB2 Ag minus Nil Result 0.00 IU/mL Normal [facility] MAGNESIUMon 07-17-2024 Magnesium [Mass/Vol] 2.7 mg/dL High 1.8-2.6 [facility] Comment on above: Performed By: #### 5 4067-4, 91075-2 #### [facility] ([id number]) [address] [place] [address] Magnesium [Mass/Vol] 1.5 mg/dL Low 1.8-2.6 [facility] Comment on above: Performed By: #### 5 4067-4, 05347-3 #### [facility] ([id number]) [address], [address] [place] [address] PHOSPHORUSon 07-17-2024 Phosphate [Mass/Vol] 3.0 mg/dL Normal 2.4-4.9 [facility] Comment on above: Performed By: #### 5 4067-4, 90198-3 #### [facility] ([id number]) [address], [address] [place] [address] BASIC METABOLIC PANLon 07-16 Anion gap [Moles/Vol] 9 mmol/L Normal 5-15 [facility] Comment on above: Performed By: #### Alvarez AGUIRRE, BMP, , 2776-, 74678-8, 1988-02 #### [facility] ([id number]) [address], [address] [place] [address] Calcium [Mass/Vol] 9.7 mg/dL Normal 8.5-10.5 [facility] Comment on above: Performed By: #### Alvarez AGUIRRE, BMP, , 2776-, 34061-2, 1988-02 #### [facility] ([id number]) [address], [address] [place] [address] Chloride [Moles/Vol] 104 mmol/L Normal 98-109 [facility] Comment on above: Performed By: #### Alvarez BC, BMP, 89133-7, 2776-1, 20704-0, 1988-02 #### [facility] ([id number]) [address], [address] [place] [address] CO2 [Moles/Vol] 25 mmol/L Normal 22-32 [facility] Comment on above: Performed By: #### Alvarez BC, BMP, 43266-8, 2776-, 29387-3, 1988-02 #### [facility] ([id number]) [address], [address] [place] [address] Creatinine [Mass/Vol] 0.66 mg/dL Normal 0.60-1.30 [facility] Comment on above: Result Comment: METH OD TRACEABLE TO IDMS STANDARD Performed By: #### CLAIRE NASSAR, 27064-8, 2776-10, 67386-0, 1988-02 #### [facility] ([id number]) [address], [address] [place] [address] eGFR (CKD-EPI) NON-RACE DEPENDENT >90 Normal >59 [facility] Comment on above: Result Comment: Reported eGFR is based on the CKD-EPI 2020 equation that does not use a race coefficient. Performed By: #### Alvarez AGUIRRE BMP, , 2776-10, , 1988-02 #### [facility] ([id number]) [address], [address] [place] [address] Glucose [Mass/Vol] 111 mg/dL High 65-99 [facility] Comment on above: Performed By: #### CLAIRE NASSAR, , 2776-10, , 1988-02 #### [facility] ([id number]) [address], [address] [place] [address] Potassium [Moles/Vol] 4.6 mmol/L Normal 3.5-5.0 [facility] Comment on above: Performed By: #### Alvarez AGUIRRE, BMP, , 2776-10, 92708-8, 1988-02 #### [facility] ([id number]) [address], [address] [place] [address] Sodium [Moles/Vol] 138 mmol/L Normal 134-146 [facility] Comment on above: Performed By: #### Alvarez AGUIRRE, BMP, 95105-0, 2776-10, 21321-9, 1988-02 #### [facility] ([id number]) [address], [address] [place] [address] Urea nitrogen [Mass/Vol] 7 mg/dL Normal 5-23 [facility] Comment on above: Performed By: #### Alvarez BC, BMP, , 2776-10, 74505-4, 1988-02 #### [facility] ([id number]) [address] [place] [address] COMPLETE BLOOD COUNTon 07-16 Erythrocyte distribution width (RBC) [Ratio] 12.8 % Normal 11.5-15.0 [facility] Comment on above: Performed By: #### Alvarez AGUIRRE, BMP, , 2776-10, , 1988-02 #### [facility] ([id number]) [address] [place] [address] Hematocrit (Bld) [Volume fraction] 41.4 % Normal 39-49 [facility] Comment on above: Performed By: #### Alvarez AGUIRRE, BMP, , 2776-10, 33608-1, 1988-02 #### [facility] ([id number]) [address] [address] Hemoglobin (Bld) [Mass/Vol] 14.0 g/dL Normal 13.0-17.0 [facility] Comment on above: Performed By: #### Alvarez BC, BMP, , 2776-10, , 1988-02 #### [facility] ([id number]) [address] [address] MCH (RBC) [Entitic mass] 30.1 pg Normal 27-34 [facility] Comment on above: Performed By: #### Alvarez BC, BMP, , 2776-10, 78012-8, 1988-02 #### [facility] ([id number]) [address] [place] [address] MCHC (RBC) [Mass/Vol] 33.9 g/dL Normal 32-36 [facility] Comment on above: Performed By: #### Alvarez AGUIRRE, CLAIRE, , 2776-10, , 1988-02 #### [facility] ([id number]) [address], [address] [place] [address] MCV (RBC) [Entitic vol] 89 fL Normal 80-100 [facility] Comment on above: Performed By: #### CLAIRE NASSAR, , 2776-10, , 1988-02 #### [facility] ([id number]) [address], [address] [place] [address] Platelet mean volume (Bld) [Entitic vol] 7.0 fL Normal 7-12 [facility] Comment on above: Performed By: #### CLAIRE NASSAR, , 2776-10, , 1988-02 #### [facility] ([id number]) [address], [address] [place] [address] Platelets (Bld) [#/Vol] 264 10*3/uL Normal 150-450 [facility] Comment on above: Performed By: #### CLAIRE NASSAR, , 2776-10, 24131-0, 1988-02 #### [facility] ([id number]) [address], [address] [place] [address] RBC COUNT 4.65 X10E12/L Normal 4.10-5.70 [facility] Comment on above: Performed By: #### CLAIRE NASSAR, , 2776-10, 18358-1, 1988-02 #### [facility] ([id number]) [address], [address] [place] [address] WBC (Bld) [#/Vol] 8.7 10*3/uL Normal 4.0-11.0 [facility] Comment on above: Performed By: #### C CARLA, BMP, , 2776-10, 99274-1, 1988-02 #### [facility] ([id number]) [address], [address] [place] [address] CRP [Mass/Vol]on 07-16-2024 C REACTIVE PROTEIN 0.3 mg/dL Normal 0.000-0.744 [facility] Comment on above: Performed By: #### 5 4067-4, 38441-6 #### [facility] ([id number]) [address], [address] [place] [address] ESR Photometric method (Bld) [Velocity]on 07-16-2024 ESR, ERYTHROCYTE SEDIMENTATION RATE 17 mm/h High 0-15 [facility] Comment on above: Performed By: #### C CARLA, BMP, , 2776-10, 28827-7, 1988-02 #### [facility] ([id number]) [address], [address] [place] [address] MAGNESIUMon 07-16-2024 Magnesium [Mass/Vol] 1.6 mg/dL Low 1.8-2.6 [facility] Comment on above: Performed By: #### C CARLA, BMP, , 2776-10, 68149-1, 1988-02 #### [facility] ([id number]) [address], [address] [place] [address] PHOSPHORUSon 07-16-2024 Phosphate [Mass/Vol] 3.7 mg/dL Normal 2.4-4.9 [facility] Comment on above: Performed By: #### C BC, BMP, , 2776-10, 90043-7, 1988-02 #### [facility] ([id number]) [address], [address] [place] [address] C DIFFICILE BY PCRon 024 C. difficile toxin genes MORGAN+probe Ql (Stl) TOXIGENIC C DIFF Negative (qualifier value) 027 NAP1 Negative (qualifier value) Normal PRNEG [facility] Comment on above: Performed By: #### 5 4067-4, 94681-3 #### [facility] ([id number]) [address], [address] [place] [address] CT ABDOMEN AND PELVIS W CONT on 07-15-2024 CT ABDOMEN AND PELVIS W CONT CT ABDOMEN AND PELVIS W CONT CT ABDOMEN AND PELVIS W CONT: 07/15/2024 PROVIDED HISTORY: * 29 years old Male * Abdominal pain, post-op; Crohn's exacerbation; Abdominal pain, acute, nonlocalized; Abdominal pain status post colonoscopy. Finding of TI stricture on scope COMPARISON: CT abdomen/pelvis 07/10/2024 TECHNIQUE: 1. Multiple sequential axial CT images were obtained of the abdomen and pelvis from the lung bases to the ischial tuberosities following the uneventful oral and IV administration of contrast. 2. All CT scans at this facility use dose modulation, iterative reconstruction, and/or weight based dosing when appropriate to reduce radiation dose to as low as reasonably achievable. Findings: LOWER THORAX: Unremarkable. ABDOMEN: LIVER: Within normal limits GALLBLADDER AND BILE DUCTS: There is mild prominence of the central intrahepatic biliary ducts and CBD not unexpected for postcholecystectomy status. Gallbladder is not visualized. PANCREAS: Unremarkable. SPLEEN: Unremarkable. ADRENAL GLANDS: Within normal limits. KIDNEYS/URETERS: Symmetric without hydroureteronephrosis. URINARY BLADDER: Within normal limits. BOWEL: Multifocal regions of bowel wall thickening and submucosal edema of the transabdominal ileum extending from the level of the ileocecal valve adjacent distal ileal loops (coronal series 601, image 62, 84), overall similar in distribution to prior when accounting for degree of distention. No evidence of bowel fistula. Appendix is normal in appearance. PERITONEUM/RETROPERITON EUM: No ascites. No free air. VASCULATURE: No abdominal aortic aneurysm. Normal variant anatomy of a retroaortic left renal vein. PELVIC ORGANS: No pelvic masses. LYMPH NODES: Mildly increased number and conspicuity of ileocecal lymph nodes, though overall similar to prior when accounting for differences in technique. No new or progressive abdominopelvic adenopathy. ABDOMINAL WALL: Within normal limits. MUSCULOSKELETAL: No acute fracture. Mild degenerative changes of the thoracolumbar spine including mild disc space loss with questionable vacuum disc phenomena at L3-L4. IMPRESSION: 1. Similar degree of infectious/inflammatory changes involving the ileocecal valve and terminal/distal ileum from 07/10/2024. 2. Otherwise no acute abdominopelvic process. Finalized by Sherlyn Canela MD on 07/15/2024 4:29 PM Normal [facility] Calprotectin (Stl) [Mass/Mas s]on 07-15-2024 Calprotectin, F 63.5 mcg/g High <50.0 (Normal) [facility] Comment on above: Result Comment: NOTE Interpretation: Borderline (50.0-120 mcg/g) Test Performed by: [facility] [address] [place] [address] Scientific Helper: Kristina Quintana Ph.D.; CLIA# [id number] Performed By: #### 5 4067-4, 52036-0 #### [facility] ([id number]) [address] [place] [address] [address] [place] [address] GI PANELon 07-15-2024 Gastrointestinal pathogens DNA and RNA panel MORGAN+non-probe (Stl) SPECIMEN SOURCE STOOL CAMPYLOBACTER Not detected (qualifier value) PLESIOMONAS Not detected (qualifier value) SALMONELLA Not detected (qualifier value) VIBRIO Not detected (qualifier value) VIBRIO CHOLERAE Not detected (qualifier value) Y. ENTEROCOLITICA Not detected (qualifier value) AGGREGATIVE E COLI Not detected (qualifier value) PATHOGENIC E COLI Not detected (qualifier value) TOXIGENIC E COLI Not detected (qualifier value) SHIGA TOXIN E COLI Not detected (qualifier value) SHIGELLA-E COLI Not detected (qualifier value) CRYPTOSPORIDIUM Not detected (qualifier value) CYCLOSPORA Not detected (qualifier value) E HISTOLYTICA Not detected (qualifier value) GIARDIA LAMBLIA Not detected (qualifier value) ADENOVIRUS Not detected (qualifier value) ASTROVIRUS Not detected (qualifier value) NOROVIRUS Not detected (qualifier value) ROTAVIRUS A Not detected (qualifier value) SAPOVIRUS Not detected (qualifier value) Normal NDET [facility] Comment on above: Performed By: #### 5 4067-4, 96729-0 #### [facility] ([id number]) [address] [place] [address] LIVER PANELon 07-15-2024 Albumin [Mass/Vol] 3.9 g/dL Normal 3.2-5.3 [facility] Comment on above: Performed By: #### L IVR, 6793-4 #### [facility] ([id number]) [address] [place] [address] ALP [Catalytic activity/Vol] 81 U/L Normal 39-130 [facility] Comment on above: Performed By: #### L IVR, 93-4 #### [facility] ([id number]) [address] [place] [address] ALT [Catalytic activity/Vol] 14 U/L Normal 0-40 [facility] Comment on above: Performed By: #### L IVR, 6793-4 #### [facility] ([id number]) [address] [place] [address] AST [Catalytic activity/Vol] 17 U/L Normal 0-41 [facility] Comment on above: Performed By: #### L IVR, 6793-4 #### [facility] ([id number]) [address] [place] [address] Bilirubin [Mass/Vol] 0.6 mg/dL Normal 0.3-1.2 [facility] Comment on above: Performed By: #### L IVR, 6793-4 #### [facility] ([id number]) [address] [place] [address] Bilirubin.direct [Mass/Vol] 0.1 mg/dL Normal 0.0-0.4 [facility] Comment on above: Performed By: #### L IVR, 6793-4 #### [facility] ([id number]) [address] [place] [address] Protein [Mass/Vol] 7.2 g/dL Normal 6.0-8.0 [facility] Comment on above: Performed By: #### L IVR, 6793-4 #### [facility] ([id number]) [address] [place] [address] Prealbumin IA [Mass/Vol]on 0 07-15-2024 Prealbumin [Mass/Vol] 24 mg/dL Normal 18-45 [facility] Comment on above: Performed By: #### L IVR, 6793-4 #### [facility] ([id number]) [address] [facility] [facility] [place] [address] Surgical Pathologyon 024 Surgical Pathology Normal [facility] Comment on above: Result Comment: [facility] [address] [place] [address] Surgical Pathology Consultation Patient Name:FRIENDWILLIAM:1995 (Age: 29)Gender:MTaken:07/15/2024eported:07/17/2024hysician(s):Sherry Mirza MD ([phone])Copy To: Rec. #:[id number]: #[id number] Final Pathologic Diagnosis 1. Duodenum, biopsy: Duodenal mucosa with no significant diagnostic abnormality. No evidence of celiac disease. 2. Stomach, biopsy: Gastric mucosa with mild reactive changes. No histological evidence of H. pylori infection on routine stain. 3. Intestine, ileocecal valve, biopsy: Active chronic ileitis. 4. Colon, random biopsy: Colonic mucosa with no significant diagnostic abnormality. No evidence of chronicity, active inflammation or dysplasia. Report Electronically Signed Out rg/4Rjm Herrera MD Interpretation performed at [facility], [address] [place] [id number], License number: [id number]. Clinical History Ileitis. 1. R/O celiac. 2. H. pylori screen. 3. R/O IBD. 4. R/O IBD. Gross Description 1. Received in formalin labeled FRIEND, #1: Duodenum biopsy R/O celiac are 3 moreau bits/strips of soft tissue, ranging from 0.2-0.7 cm in greatest dimension. Filtered and submitted in a single cassette. (1, ns, [id number], m7) MG 2. Received in formalin labeled FRIEND, #2: Gastric biopsy are 6 moreau bits/strips of soft tissue, ranging from 0.1-0.6 cm in greatest dimension. Filtered and submitted in a single cassette. (1, ns, [id number], m7) MG 3. Received in formalin labeled FRIEND, #3: Ileocecal valve biopsy R/O IBD are 5 moreau bits/strips of soft tissue, ranging from 0.1-0.7 cm in greatest dimension. Filtered and submitted in a single cassette. (1, ns, [id number], m7) MG 4. Received in formalin labeled FRIEND, #4: Random colon biopsy R/O IBD are multiple moreau bits/strips of soft tissue, aggregating to 1.4 x 0.3 x 0.1 cm. Filtered and submitted in a single cassette. (1, ns, [id number], m7) MG mjg/07/15/2024WAK Specimen(s) Received 1: Duodenum biopsy 2: Gastric biopsy 3: Ileocecal valve biopsy 4: Random colon biopsy Fee Codes(s): 1; 80807 2; 99628 3; 39105 4; 45997 CBC AND AUTO DIFFon 07-13-20 24 ABSOLUTE BASOPHIL 0.1 X10E9/L Normal 0.0-0.2 [facility] Comment on above: Performed By: #### C RICKI, [facility], [address]-3 #### [facility] ([id number]) [address] [place] [address], [place] [address] ABSOLUTE NEUTROPHIL 3.5 X10E9/L Normal 1.5-6.6 [facility] Comment on above: Performed By: #### C RICKI, CMP, #### [facility] ([id number]) [address] [place] [address] Basophils/100 WBC (Bld) 1.0 % Normal [facility] Comment on above: Performed By: #### C BCA, CMP, #### [facility] ([id number]) [address] [place] [address] Eosinophils (Bld) [#/Vol] 0.2 10*3/uL Normal 0.0-0.4 [facility] Comment on above: Performed By: #### C RICKI, [facility], #### [facility] ([id number]) [address] [place] [address] Eosinophils/100 WBC (Bld) 2.5 % Normal [facility] Comment on above: Performed By: #### C BCA, [facility], #### [facility] ([id number]) [address] [place] [address] Erythrocyte distribution width (RBC) [Ratio] 13.1 % Normal 11.5-15.0 [facility] Comment on above: Performed By: #### C RICKI, [facility], #### [facility] ([id number]) [address] [place] [id number] Hematocrit (Bld) [Volume fraction] 39.8 % Normal 39-49 [facility] Comment on above: Performed By: #### C BCA, CMP, #### [facility] ([id number]) [address] [place] [address] [id number] Hemoglobin (Bld) [Mass/Vol] 13.2 g/dL Normal 13.0-17.0 [facility] Comment on above: Performed By: #### C BCA, CMP, #### [facility] ([id number]) [address] [place] [address] 50332 Lymphocytes (Bld) [#/Vol] 2.3 10*3/uL Normal 1.0-3.5 [facility] Comment on above: Performed By: #### Alvarez ROBISON CMP, 71207-3 #### [facility] ([id number]) [address] [place] [address] 38395 Lymphocytes/100 WBC (Bld) 33.8 % Normal [facility] Comment on above: Performed By: #### Alvarez ROBISON CMP, #### [facility] ([id number]) [address] [place] [address] 85361 MCH (RBC) [Entitic mass] 29.4 pg Normal 27-34 [facility] Comment on above: Performed By: #### Alvarez ROBISON CMP, #### [facility] ([id number]) [address] [place] [address] 93597 MCHC (RBC) [Mass/Vol] 33.1 g/dL Normal 32-36 [facility] Comment on above: Performed By: #### Alvarez ROBISON CMP, 35523-5 #### [facility] ([id number]) [address] [place] [address] 07219 MCV (RBC) [Entitic vol] 89 fL Normal 80-100 [facility] Comment on above: Performed By: #### Alvarez ROBISON CMP, #### [facility] ([id number]) [address] [place] [address] 40933 Monocytes (Bld) [#/Vol] 0.7 10*3/uL Normal 0-0.9 [facility] Comment on above: Performed By: #### Alvarez ROBISON CMP, #### [facility] ([id number]) [address] [place] [address] [place] [address] Monocytes/100 WBC (Bld) 10.3 % Normal [facility] Comment on above: Performed By: #### Alvarez ROBISON CMP, 04444-8 #### [facility] ([id number]) [address] [place] [address] 56087 Neutrophils/100 WBC (Bld) 52.4 % Normal [facility] Comment on above: Performed By: #### Alvarez ROBISON CMP, 16083-1 #### [facility] ([id number]) [address] [place] [address] 12956 Platelet mean volume (Bld) [Entitic vol] 6.9 fL Low 7-12 [facility] Comment on above: Performed By: #### Alvarez ROBISON CMP, 65788-9 #### [facility] ([id number]) [address] [place] [address] 27545 Platelets (Bld) [#/Vol] 286 10*3/uL Normal 150-450 [facility] Comment on above: Performed By: #### Alvarez ROBISON CMP, 32206-6 #### [facility] ([id number]) [address] [place] [address] 65903 RBC COUNT 4.47 X10E12/L Normal 4.10-5.70 [facility] Comment on above: Performed By: #### Alvarez ROBISON CMP, #### [facility] ([id number]) [address] [place] [address] 52047 WBC (Bld) [#/Vol] 6.7 10*3/uL Normal 4.0-11.0 [facility] Comment on above: Performed By: #### Alvarez ROBISON CMP, 64224-9 #### [facility] ([id number]) [address] [place] [address] 76086 COMPREHENSIVE METABOLIC PANE [facility] 07-13-2024 Albumin [Mass/Vol] 3.8 g/dL Normal 3.2-5.3 [facility] Comment on above: Performed By: #### C RICKI, CMP, #### [facility] ([id number]) [address] [place] [address] 98228 ALP [Catalytic activity/Vol] 83 U/L Normal 39-130 [facility] Comment on above: Performed By: #### C BCA, CMP, #### [facility] ([id number]) [address] [place] [address] 00400 ALT [Catalytic activity/Vol] 16 U/L Normal 0-40 [facility] Comment on above: Performed By: #### C BCA, CMP, #### [facility] ([id number]) [address] [place] [address] 16068 Anion gap [Moles/Vol] 7 mmol/L Normal 5-15 [facility] Comment on above: Performed By: #### C BCA, CMP, #### [facility] ([id number]) [address] [place] [address] 56762 AST [Catalytic activity/Vol] 20 U/L Normal 0-41 [facility] Comment on above: Performed By: #### C BCA, CMP, #### [facility] ([id number]) [address] [place] [address] 60625 Bilirubin [Mass/Vol] 0.2 mg/dL Low 0.3-1.2 [facility] Comment on above: Performed By: #### C BCA, CMP, #### [facility] ([id number]) [address] [place] [address] 80283 Calcium [Mass/Vol] 9.2 mg/dL Normal 8.5-10.5 [facility] Comment on above: Performed By: #### C BCA, CMP, #### [facility] ([id number]) [address] [place] [address] 59879 Chloride [Moles/Vol] 101 mmol/L Normal 98-109 [facility] Comment on above: Performed By: #### C JACKSON ROBISON, 03290-3 #### [facility] ([id number]) [address] [place] [address] 77153 CO2 [Moles/Vol] 28 mmol/L Normal 22-32 [facility] Comment on above: Performed By: #### C JACKSON ROBISON, 13626-2 #### [facility] ([id number]) [address] [place] [address] 40113 Creatinine [Mass/Vol] 0.63 mg/dL Low 0.70-1.20 [facility] Comment on above: Result Comment: METH OD TRACEABLE TO IDMS STANDARD Performed By: #### C JACKSON ROBISON, #### [facility] ([id number]) [address] [place] [address] 94421 eGFR (CKD-EPI) NON-RACE DEPENDENT >90 Normal >59 [facility] Comment on above: Result Comment: Reported eGFR is based on the CKD-EPI 1 equation that does not use a race coefficient. Performed By: #### C JACKSON ROBISON, 55415-8 #### [facility] ([id number]) [address] [place] [address] 88875 Glucose [Mass/Vol] 100 mg/dL High 65-99 [facility] Comment on above: Performed By: #### C JACKSON ROBISON, 83084-9 #### [facility] ([id number]) [address] [place] [address] 31058 Potassium [Moles/Vol] 3.4 mmol/L Low 3.5-5.0 [facility] Comment on above: Performed By: #### Alvarez ROBISON CMP, #### [facility] ([id number]) [address] [place] [address] Protein [Mass/Vol] 7.4 g/dL Normal 6.0-8.0 [facility] Comment on above: Performed By: #### C BCA, CMP, 19066-2 #### [facility] ([id number]) [address] [place] [address] 81512 Sodium [Moles/Vol] 136 mmol/L Normal 134-146 [facility] Comment on above: Performed By: #### C BCA, CMP, 45518-9 #### [facility] ([id number]) [address] [place] [address] 21424 Urea nitrogen [Mass/Vol] 20 mg/dL Normal 5-23 [facility] Comment on above: Performed By: #### C BCA, CMP, 07703-1 #### [facility] ([id number]) [address] [place] [address] 18555 MAGNESIUMon 07-13-2024 Magnesium [Mass/Vol] 1.8 mg/dL Normal 1.8-2.6 [facility] Comment on above: Performed By: #### C BCA, CMP, 82651-0 #### [facility] ([id number]) [address] [place] [address] 06209 XR ABDOM COMP SERIES W PA CH ESTon 07-13-2024 XR ABDOM COMP SERIES W PA CHEST XR ABDOM COMP SERIES W PA CHEST XR ABDOM COMP SERIES W PA CHEST HISTORY: Abdominal pain. COMPARISON: none IMPRESSION: No acute cardiopulmonary process. No pneumothorax or pleural effusion. Nonobstructive bowel gas pattern. No pneumatosis, pneumoperitoneum or portal venous gas, for technique. Nonacute right clavicular fracture with mature callus. Finalized by Leobardo Pearl MD on 07/13/2024 11:59 PM Normal [facility] CBC AND AUTO DIFFon 07-10-20 ABSOLUTE BASOPHIL 0.0 X10E9/L Normal 0.0-0.2 [facility] Comment on above: Performed By: #### C JACKSON ROBISON, 3039-3 #### [facility] ([id number]) [address] [place] [address] 90208 ABSOLUTE NEUTROPHIL 11.0 X10E9/L High 1.5-6.6 [facility] Comment on above: Performed By: #### Alvarez ROBISON CMP, 3039-3 #### [facility] ([id number]) [address] [place] [address] 61906 Basophils/100 WBC (Bld) 0.2 % Normal [facility] Comment on above: Performed By: #### Alvarez ROBISON CMP, 3039-12 #### [facility] ([id number]) [address] [place] [address] 82304 Eosinophils (Bld) [#/Vol] 0.0 10*3/uL Normal 0.0-0.4 [facility] Comment on above: Performed By: #### Alvarez ROBISON CMP, 3039-12 #### [facility] ([id number]) [address] [place] [address] 42987 Eosinophils/100 WBC (Bld) 0.2 % Normal [facility] Comment on above: Performed By: #### Alvarez ROBISON CMP, 3039-12 #### [facility] ([id number]) [address] [place] [address] 46483 Erythrocyte distribution width (RBC) [Ratio] 13.4 % Normal 11.5-15.0 [facility] Comment on above: Performed By: #### Alvarez ROBISON CMP, 3 #### [facility] ([id number]) [address] [place] [address] 84301 Hematocrit (Bld) [Volume fraction] 43.4 % Normal 39-49 [facility] Comment on above: Performed By: #### Alvarez ROBISON CMP, 3039-3 #### [facility] ([id number]) [address] [place] [address] 44889 Hemoglobin (Bld) [Mass/Vol] 14.4 g/dL Normal 13.0-17.0 [facility] Comment on above: Performed By: #### Alvarez ROBISON CMP, 3039-3 #### [facility] ([id number]) [address] [place] [address] 72283 Lymphocytes (Bld) [#/Vol] 0.8 10*3/uL Low 1.0-3.5 [facility] Comment on above: Performed By: #### Alvarez ROBISON CMP, 3 #### [facility] ([id number]) [address] [place] [address] 26465 Lymphocytes/100 WBC (Bld) 6.6 % Normal [facility] Comment on above: Performed By: #### Alvarez ROBISON CMP, 3 #### [facility] ([id number]) [address] [place] [address] 75083 MCH (RBC) [Entitic mass] 29.4 pg Normal 27-34 [facility] Comment on above: Performed By: #### Alvarez ROBISON CMP, 3039-3 #### [facility] ([id number]) [address] [place] [address] 19808 MCHC (RBC) [Mass/Vol] 33.1 g/dL Normal 32-36 [facility] Comment on above: Performed By: #### Alvarez ROBISON CMP, 3039-3 #### [facility] ([id number]) [address] [place] [address] 97966 MCV (RBC) [Entitic vol] 89 fL Normal 80-100 [facility] Comment on above: Performed By: #### Alvarez ROBISON CMP, 3039-3 #### [facility] ([id number]) [address] [place] [address] 37373 Monocytes (Bld) [#/Vol] 0.7 10*3/uL Normal 0-0.9 [facility] Comment on above: Performed By: #### Alvarez ROBISON CMP, 3039-3 #### [facility] ([id number]) [address] [place] [address] 67338 Monocytes/100 WBC (Bld) 5.6 % Normal [facility] Comment on above: Performed By: #### Alvarez ROBISON CMP, 3039-12 #### [facility] ([id number]) [address] [place] [address] 26468 Neutrophils/100 WBC (Bld) 87.4 % Normal [facility] Comment on above: Performed By: #### Alvarez ROBISON CMP, 3039-12 #### [facility] ([id number]) [address] [place] [address] 77704 Platelet mean volume (Bld) [Entitic vol] 7.3 fL Normal 7-12 [facility] Comment on above: Performed By: #### Alvarez ROBISON CMP, 3039-12 #### [facility] ([id number]) [address] [place] [address] 92763 Platelets (Bld) [#/Vol] 330 10*3/uL Normal 150-450 [facility] Comment on above: Performed By: #### Alvarez ROBISON CMP, 3 #### [facility] ([id number]) [address] [place] [address] 05505 RBC COUNT 4.88 X10E12/L Normal 4.10-5.70 [facility] Comment on above: Performed By: #### Alvarez ROBISON CMP, 3 #### [facility] ([id number]) [address] [place] [address] 78055 WBC (Bld) [#/Vol] 12.6 10*3/uL High 4.0-11.0 [facility] Comment on above: Performed By: #### C BCA, CMP, 3039-3 #### [facility] ([id number]) [address] [place] [address] 28510 COMPREHENSIVE METABOLIC PANE [facility] 07-10-2024 Albumin [Mass/Vol] 4.2 g/dL Normal 3.2-5.3 [facility] Comment on above: Performed By: #### C RICKI, CMP, 3039-3 #### [facility] ([id number]) [address] [place] [address] 02682 ALP [Catalytic activity/Vol] 96 U/L Normal 39-130 [facility] Comment on above: Performed By: #### Alvarez BCA, CMP, 3039-3 #### [facility] ([id number]) [address] [place] [address] 09389 ALT [Catalytic activity/Vol] 22 U/L Normal 0-40 [facility] Comment on above: Performed By: #### C BCA, CMP, 3039-3 #### [facility] ([id number]) [address] [place] [address] 70392 Anion gap [Moles/Vol] 8 mmol/L Normal 5-15 [facility] Comment on above: Performed By: #### Alvarez ROBISON, CMP, 3039-3 #### [facility] ([id number]) [address] [place] [address] 10412 AST [Catalytic activity/Vol] 19 U/L Normal 0-41 [facility] Comment on above: Performed By: #### Alvarez BCA, CMP, 3039-3 #### [facility] ([id number]) [address] [place] [address] 57837 Bilirubin [Mass/Vol] 1.0 mg/dL Normal 0.3-1.2 [facility] Comment on above: Performed By: #### Alvarez BCA, CMP, 3039-3 #### [facility] ([id number]) [address] [place] [address] 93611 Calcium [Mass/Vol] 9.7 mg/dL Normal 8.5-10.5 [facility] Comment on above: Performed By: #### C JACKSON ROBISON, 3039-3 #### [facility] ([id number]) [address] [place] [address] 90260 Chloride [Moles/Vol] 104 mmol/L Normal 98-109 [facility] Comment on above: Performed By: #### Alvarez ROBISON CMP, 3039-3 #### [facility] ([id number]) [address] [place] [address] 39245 CO2 [Moles/Vol] 25 mmol/L Normal 22-32 [facility] Comment on above: Performed By: #### Alvarez ROBISON CMP, 3039-3 #### [facility] ([id number]) [address] [place] [address] 61414 Creatinine [Mass/Vol] 0.76 mg/dL Normal 0.70-1.20 [facility] Comment on above: Result Comment: METH OD TRACEABLE TO IDMS STANDARD Performed By: #### C JACKSON ROBISON, 3039-3 #### [facility] ([id number]) [address] [place] [address] 48605 eGFR (CKD-EPI) NON-RACE DEPENDENT >90 Normal >59 [facility] Comment on above: Result Comment: Reported eGFR is based on the CKD-EPI 2020 equation that does not use a race coefficient. Performed By: #### Alvarez ROBISON CMP, 3039-3 #### [facility] ([id number]) [address] [place] [address] 44851 Glucose [Mass/Vol] 102 mg/dL High 65-99 [facility] Comment on above: Performed By: #### Alvarez ROBISON CMP, 3039-3 #### [facility] ([id number]) [address] [place] [address] 98410 Potassium [Moles/Vol] 4.0 mmol/L Normal 3.5-5.0 [facility] Comment on above: Performed By: #### C BCA, CMP, 3040-3 #### [facility] ([id number]) [address] [place] [address] 56023 Protein [Mass/Vol] 8.1 g/dL High 6.0-8.0 [facility] Comment on above: Performed By: #### C BCA, CMP, 3040-3 #### [facility] ([id number]) [address] [place] [address] 66794 Sodium [Moles/Vol] 137 mmol/L Normal 134-146 [facility] Comment on above: Performed By: #### C BCA, [facility], 3040-3 #### [facility] ([id number]) [address] [place] [address] 90514 Urea nitrogen [Mass/Vol] 14 mg/dL Normal 5-23 [facility] Comment on above: Performed By: #### C BCA, [facility], 3040-3 #### [facility] ([id number]) [address] [place] [address] ABDOMEN AND PELVIS W CONT on 07-10-2024 CT ABDOMEN AND PELVIS W CONT CT ABDOMEN AND PELVIS W CONT CT ABDOMEN AND PELVIS W CONT CLINICAL HISTORY:Abdominal pain, acute, nonlocalized COMPARISON: None. TECHNIQUE: CT abdomen and pelvis was performed utilizing the standard protocol following the uneventful administration of 100 cc Omnipaque 300 nonionic intravenous contrast. Coronal and sagittal reformatted images were generated and reviewed. Automated exposure control was utilized. FINDINGS: No acute findings lower thorax. Unremarkable liver, spleen, adrenal glands, pancreas, kidneys. Retroaortic left renal vein. No acute appearing occlusion the major visceral vasculature. Small volume pelvic free fluid. Subtle mucosal hyperenhancement of the terminal ileum extending to the ileocecal valve, which appears edematous [series 601 image #42]. Discretely separate segment of upstream distal ileum has short segment wall thickening, cervical partial narrowing and mucosal hyperintense enhancement [series 601 image #[id number]]. Normal appendix. Mild hyperemia of the distal small bowel, prominent ileocecal lymph nodes. No well-circumscribed collection within the abdomen or pelvis. IMPRESSION: 1. Multifocal infiltrate change involving the ileocecal valve and distal ileum, findings worrisome for possible underlying inflammatory bowel disease, such as Crohn's. Infectious ileitis is also possible. Correlate clinically, follow up may be appropriate. All CT scans at this facility use dose modulation, iterative reconstruction, and/or weight based dosing when appropriate to reduce radiation dose to as low as reasonably achievable. Finalized by Leobardo Pearl MD on 07/10/2024 1:42 PM Normal [facility] LIPASEon 07-10-2024 Lipase [Catalytic activity/Vol] 24 U/L Normal 17-40 [facility] Comment on above: Performed By: #### C BCA, CMP, 3040-3 #### [facility] ([id number]) [address] [place] [address], [place] [address] Heart and Vascular Office/Cl inic Noteon 07-08-2024 Heart and Vascular Office/Clinic Note [facility] Office/Clinic Note Chief Complaint New patient- Chest pain History of Present Illness The patient is a 29-year-old male with no prior cardiac history, who presents for cardiac evaluation due to issues with chest discomfort. This has been going on for quite a while. He describes the chest pains as sharp sensations in the center of his chest, with no alleviating or aggravating factors, lasting sometimes minutes, sometimes several hours straight. He denies exertional component. No history of hypertension, dyslipidemia, diabetes. Extremely difficult historian. Review of Systems PHQ Score Initial Depression Screen Score: 0 SCORE ROS - Provider Constitutional: no fever, no chills, no fatigue Skin:no rash, no lesions ENMT: no ear pain, no sore throat, no congestion. Respiratory: no shortness of breath, no cough, no wheezing. Cardiovascular: no chest pain, no palpitations, no edema. Gastrointestinal: no nausea, no vomiting, no diarrhea, no GI bleeding. Genitourinary: no dysuria, no frequencyno hematuria Musculoskeletal: no back pain, no trauma. Neurologic: no headache, no dizziness, no numbness, no weakness. Psychiatric: no sleeping problems, no irritability, no mood swings/depression. Heme/Lymph: no bleeding tendency, no bruising tendency, no petechiae, Allergy/Immuno logic: no seasonal allergies, no food allergies, no recurrent infections Physical Exam Vitals & Measurements HR: 92(Peripheral) RR: 16 BP: 130/80 SpO2: 99% HT: 65 in HT: 165 cm WT: 69.4 kg WT: 152.68 lb BMI: 25.49 General: alert, no acute distress Neck: Supple, noJVD nocarotid bruit Cardiovascular: regular rate and rhythm, no murmur normal peripheral perfusion; chest wall is tender to palpation with some reproduction of the presenting symptom, however the patient states those may be slightly different, as well Respiratory: Lungs CTAB, respirations non labored Extremities: no edema left lower extremity. no edema right lower extremity Neurological: oriented x 4, LOC appropriate for age, speech normal Skin: Warm, dry, intact- no rash or concerning lesions Procedure ECG which was performed today in the office showed sinus rhythm at 85 bpm and is essentially normal. Assessment/Plan 1. Chest pain (R07.9: Chest pain, unspecified) Likely noncardiac, musculoskeletal, reproducible. I would like to obtain a transthoracic echocardiogram to rule out pericardial disease Orders: ECG 12 Lead Adult Follow-up No qualifying data available As needed Problem List/Past Medical History Ongoing Chest pain History of epididymitis Inguinal lymphadenopathy Rash Reactive lymphadenopathy Recurrent UTI Historical No qualifying data Procedure/Surgical History Arthroscopy of knee, Cholecystectomy, Epididymal cyst. Medications Pepcid 20 mg Tab, 20 mg= 1 tab(s), Oral, BID, Not taking Allergies No Known Allergies Social History Tobacco - Denies Tobacco Use, 07/08/2024 Former smoker, quit more than 30 days ago Tobacco Use:. Current vaping or e-cigarette use Smokeless Tobacco Use:. Vaping, Household tobacco concerns: No., 07/08/2024 Immunizations Vaccine Date Status Comments SARS-CoV-2 (COVID-19) Ad26 vaccine - Not Given Temporary contraindication - reschedule Normal [facility] Comment on above: Result Comment: Elec tronically Signed By: Sue SAXENA, Ion De Anda.celestine\Date and Time Signed: 07/08/24 14:37 EDT Ambulatory Visit Summaryon 0 07-01-2024 Ambulatory Visit Summary Ambulatory Visit Summary FRIEND, WILLIAM Powell :1995 Visit Date:07/01/2024 Ambulatory Visit Instructions Your Diagnosis Chest pain BMI 25.0-25.9,adult Overweight Vaping-related disorder Your Care Team Attending Physician - Casey Carpio MD Primary Care Physician - Casey Carpio MD This Is Your Medications List famotidine (Pepcid 20 mg Tab) Procedures Performed Arthroscopy of knee, Cholecystectomy, Epididymal cyst. Discharge Vitals Temperature (Temporal Artery) 36.4 ?C Heart Rate (Peripheral) 92 Respiratory Rate 16 Blood Pressure 132/80 Height 165 cm Height 65 in Weight 69.4 kg Weight 152.68 lb BMI 25.49 What to do next Scheduled Follow-Up Appointments Monday 1:15 PM EDT With: Casey Carpio MD Where: [address] [address]- Monday 8:15 AM EST With: Casey Carpio MD Where: [address] [address]- Medications What How Much When Why Instructions New famotidine (Pepcid 20 mg Tab) 1 Tablets By Mouth 2 times a day Chest pain BMI 25.0-25.9,adult Overweight Vaping-related disorder Pickup at [facility] Pharmacy Information [facility]: [address] [place], [place] [id number] [phone] Allergies No Known Allergies Problems Ongoing - Any problem that you are currently receiving treatment for. Chest pain History of epididymitis Inguinal lymphadenopathy Rash Reactive lymphadenopathy Recurrent UTI Patient Survey You may receive a survey via text or e-mail asking about your office visit. Please share your experience with us by completing your survey. We appreciate your feedback and thank you for choosing us for your care. Education Materials BMI for Adults Body mass index (BMI) is a number found using a person's weight and height. BMI can help tell how much of a person's weight is made up of fat. BMI does not measure body fat directly. It is used instead of tests that directly measure body fat, which can be difficult and expensive. What are BMI measurements used for? BMI is useful to: ? Find out if your weight puts you at higher risk for medical problems. ? Help recommend changes, such as in diet and exercise. This can help you reach a healthy weight. BMI screening can be done again to see if these changes are working. How is BMI calculated? Your height and weight are measured. The BMI is found from those numbers. This can be done with U.S. or metric measurements. Note that charts and online BMI calculators are available to help you find your BMI quickly and easily without doing these calculations. To calculate your BMI in [place]. measurements: 1. Measure your weight in pounds (lb). 2. Multiply the number of pounds by 703. ? So, for an adult who weighs 150 lb, multiply that number by 703: 150 x 703, which equals 105,450. 3. Measure your height in inches. Then multiply that number by itself to get a measurement called inches squared. ? So, for an adult who is 70 inches tall, the inches squared measurement is 70 inches x 70 inches, which equals 4,900 inches squared. 4. Divide the total from step 2 (number of lb x 703) by the total from step 3 (inches squared): 105,450 ? 4,900 = 21.5. This is your BMI. To calculate your BMI in metric measurements: 1. Measure your weight in kilograms (kg). ? For this example, the weight is 70 kg. 2. Measure your height in meters (m). Then multiply that number by itself to get a measurement called meters squared. ? So, for an adult who is 1.75 m tall, the meters squared measurement is 1.75 m x 1.75 m, which equals 3.1 meters squared. 3. Divide the number of kilograms (your weight) by the meters squared number. In this example: 70 ? 3.1 = 22.6. This is your BMI. What do the results mean? BMI charts are used to see if you are underweight, normal weight, overweight, or obese. The following guidelines will be used: ? Underweight: BMI less than 18.5. ? Normal weight: BMI between 18.5 and 24.9. ? Overweight: BMI between 25 and 29.9. ? Obese: BMI of 30 or above. BMI is a tool and cannot diagnose a condition. Talk with your health care provider about what your BMI means for you. Keep these notes in mind: ? Weight includes fat and muscle. Someone with a muscular build, such as an athlete, may have a BMI that is higher than 24.9. In cases like these, BMI is not a correct measure of body fat. ? If you have a BMI of 25 or higher, your provider may need to do more testing to find out if excess body fat is the cause. ? BMI is measured the same way for males and females. Females usually have more body fat than males of the same height and weight. Where to find more information For (more content not included)... Normal [facility] Family Medicine Office/Clini c Noteon 07-01-2024 Family Medicine Office/Clinic Note Family Medicine Office/Clinic Note HPI Staff William is a 29 year old male presenting for ER Follow up ER followup: Hospital: [facility] Visit date: 06/27/24 Symptoms the patient presented with: chest pain, says his HR was beating fast and out of control Did chest xray, EKG no labs. Didn't rx anything for him or find a cause for the chest pain Current concerns: says back in a day took medication for a HR and thinks maybe needs back on medicine was tenormin he took in past History of Present Illness Patient presents today for follow-up ER. Patient was having chest pain. He states it gets worse when he is hot improves when he is in the cool. He states it did dull ache in the center of his chest. Sometimes he can be short of breath. Patient states he does not eat until after work. Patient states he drinks a lot of water. Patient has a 2 out of 10 pain today. Pain does not radiate. No tingling or numbness. Reviewed ER records. Review of Systems PHQ Score Initial Depression Screen Score: 0 SCORE Physical Exam Vitals & Measurements T: 36.4 ?C(Temporal Artery) HR: 92(Peripheral) RR: 16 BP: 132/80 SpO2: 99% HT: 65 in HT: 165 cm WT: 69.4 kg WT: 152.68 lb BMI: 25.49 General: alert, no acute distress ENMT: oral mucosa moist, TMs within normal limits Cardiovascular: regular rate and rhythm, normal peripheral perfusion Respiratory: Lungs CTA, respirations non labored Extremities: no deformity, no trauma Neurological: oriented x 4, LOC appropriate for age, CN II-XII intact, motor strength equal & normal bilaterally, speech normal Abdomen: Soft, Nontender, Non-distended, + BS Assessment/Plan 1. Chest pain (R07.9: Chest pain, unspecified) At this time the differential diagnosis is chest pain secondary to tachycardia, anxiety, dehydration, acid reflux. Will start on Pepcid and will send to cardiology. Given the patient has a history of tachycardia for which she had to take a beta-yaquelin for we will have a full workup with cardiology. Will follow-up in 1 month. Ordered: famotidine, 20 mg = 1 tab(s), Oral, BID, # 60 tab(s), Refills(s) 0, Pharmacy: [facility], 165, cm, 07/01/24 7:44:00 EDT, Height/Length Dosing, 69.4, kg, 07/01/24 7:44:00 EDT, [place] [facility] [place] 2. BMI 25.0-25.9,adult (Z68.25: Body mass index [BMI] 25.0-25.9, adult) BMI education given. Ordered: famotidine, 20 mg = 1 tab(s), Oral, BID, # 60 tab(s), Refills(s) 0, Pharmacy: [facility], 165, cm, 07/01/24 7:44:00 EDT, Height/Length Dosing, 69.4, kg, 07/01/24 7:44:00 EDT, Weight Dosing [facility] [place] 3. Overweight (E66.3: Overweight) Diet and exercise advised. Ordered: famotidine, 20 mg = 1 tab(s), Oral, BID, # 60 tab(s), Refills(s) 0, Pharmacy: [facility], 165, cm, 07/01/24 7:44:00 EDT, Height/Length Dosing, 69.4, kg, 07/01/24 7:44:00 EDT, Weight Dosing [facility] [place] 4. Vaping-related disorder (U07.0: Vaping-related disorder) Please stop using nicotine products. Ordered: famotidine, 20 mg = 1 tab(s), Oral, BID, # 60 tab(s), Refills(s) 0, Pharmacy: [facility], 165, cm, 07/01/24 7:44:00 EDT, Height/Length Dosing, 69.4, kg, 07/01/24 7:44:00 EDT, Weight Dosing [facility] [place] Follow-up No qualifying data available Patient Education BMI for Adults Problem List/Past Medical History Ongoing Chest pain History of epididymitis Inguinal lymphadenopathy Rash Reactive lymphadenopathy Recurrent UTI Historical No qualifying data Procedure/Surgical History Arthroscopy of knee, Cholecystectomy, Epididymal cyst. Medications Pepcid 20 mg Tab, 20 mg= 1 tab(s), Oral, BID Allergies No Known Allergies Social History Tobacco Former smoker, quit more than 30 days ago Tobacco Use:. Current vaping or e-cigarette use Smokeless Tobacco Use:. Vaping, Household tobacco concerns: No., 07/01/2024 Immunizations Vaccine Date Status Comments SARS-CoV-2 (COVID-19) Ad26 vaccine - Not Given Temporary contraindication - reschedule [facility] Comment on above: Result Comment: Elec tronically Signed By: Christian SAXENA, Casey Nelson\.br\Date and Time Signed: 07/01/24 08:00 EDT Provider Letteron 07-01-2024 Provider Letter Provider Letter July 01, 2024 [address] FRIEND [address] [place] [phone] : 1995 To Whom It May Concern, Please excuse above patient from work, William did have an appointment with Casey Carpio M.D. @ 7:45 a.m. Date of Illness: From: _ To: _ May Return to Work On: 07-01-24 Restrictions: _ Comments: _ Sincerely, Family Medicine [address] [facility] Jesús 05-09-2024 L Specimen: [id number] Received: 05/09/24 Status: ROSIE Gómez Num: [id number] Spec Type: Surgical Subm Dr: Brooklyn Taylor MD Tissues: A Soft Tissue/Surgical Margin-Other than Tumor,Mass,Lip or Alla (LT HIP MASS) Procedures: HE, Gross/Micro L4 Age/ Patient Sex Location Account Attending Physician Friend,William Powell 28/M [place] [id number] Brooklyn Taylor MD SPEC NUM: [id number] RECD: 05/09/24 STATUS: ROSIE GÓMEZ NUM: [id number] SHERWIN: 05/09/[address]: Brooklyn Taylor MD ENTERED: 05/09/[address] [facility] [address]: SPEC TYPE: Surgical DEPT: S ORDERED: [...] submitted following decalcification in A1. CPT Codes 50319, 61415 Specimen: [id number] Received: 05/09/24 Status: ROSIE Gómez Num: [id number] Spec Type: Surgical Subm Dr: Brooklyn Taylor MD Tissues: A Soft Tissue/Surgical Margin-Other than Tumor,Mass,Lip or Alla (LT HIP MASS) Procedures: HE, Gross/Micro L4 Patient: William Hernandez [id number] (Continued) Signed (signature on file) Thierno Lindquist Jr., MD 05/11/24 1238 Normal [facility] Consultation Noteon 04-10-20 24 Consultation Note [id number] IFF Normal [facility] Ambulatory Visit Summaryon 0 04-09-2024 Ambulatory Visit Summary WILLIAM HERNANDEZ :1995 Visit Date:04/09/2024 Ambulatory Visit Instructions Your Diagnosis Rash Vaping-related disorder Your Care Team Attending Physician - Christian SAXENA, Casey Nelson Primary Care Physician - Christian SAXENA, Casey Nelson Procedures Performed Arthroscopy of knee, Cholecystectomy, Epididymal cyst. Discharge Vitals Temperature (Temporal Artery) 37.0 ?C Heart Rate (Peripheral) 66 Respiratory Rate 16 Blood Pressure 120/72 Height 165 cm Height 65 in Weight 66.6 kg Weight 146.52 lb BMI 24.46 What to do next Scheduled Follow-Up Appointments Monday 8:15 AM EST With: Casey Carpio MD Where: [facility] Medicine Bia Normal [facility] Medicine Office/Clini c Noteon 04-09-2024 Family [...] BID, # 20 cap(s), Refills(s) 0, Pharmacy: [facility], 165, cm, 03/12/24 8:28:00 EDT, Height/Length [...] Not Given Temporary contraindication - reschedule Normal [facility] Comment on above: Result Comment: Elec tronically Signed By: Christian SAXENA, Casey Schulz.br\Date and Time Signed: 04/09/24 08:29 EDT Patient [...] with your condition: Medicine Take or apply mxhs-gji-pbsopxy and prescription medicines only as told by [...] a bath with: ? Epsom salts. Follow vocational rehabilitation teacher instructions on the packaging. You can get these at your local pharmacy or grocery store. ? Baking soda. Pour a small amount into the bath as told by your health care provider. ? Colloidal oatmeal. Follow vocational rehabilitation teacher instructions on the packaging. You can get this at your local pharmacy or grocery store. ? Try applying baking soda paste to your skin. Stir water into baking soda until it reaches a paste-like consistency. ? Try applying calamine lotion. This is an wecr-kjx-avrhsaa lotion that helps to relieve itchiness. ? [...] rash from spreading. ? Take or apply zrjf-rhv-imhhjsj and prescription medicines only as told by [...] provider. Document Revised: 07/14/2022 Document Reviewed: 07/14/2022 [employer] Patient Education ? 2022 [employer]. Normal [facility] Provider Letteron 04-09-2024 Provider Letter (Inserted Image. Mirella ble to display) April 09, 2024 [address] HERNA[address]DEZ [address] [place] [id number] : 1995 To Whom It May Concern, Please excuse above patient from work patient did have appt. with Dr. Carpio Monday04-09-24 @ 8:15 a.m. this morning Date of Illness: From: _ To: _ Restrictions: _NONE Comments: _ Sincerely, Family Medicine [address] [address] Normal [facility] Provider Letter (Inserted Image. Mirella ble to display) April 09, 2024 WILLIAM HERNANDEZ [address] [place] [phone] : 1995 To Whom It May Concern, Please excuse above patient from work patient did have appt. with Dr. Carpio @ 8:15 a.m. this morning Date of Illness: From: _ To: _ Restrictions: _NONE Comments: _ Sincerely, [facility] [address] [place] [address] Connie Peñaloza [facility] MRI KNEE LEFT WO CONTRASTon 08-25-2023 MRI [...] M Bowden MD 08/25/23 Final result Normal [facility] XR KNEE LEFT (MIN 4 VIEWS)on 07-25-2023 [...] MD 07/25/23 Edited Result - FINAL Normal [facility] Covid-19 PCR (CVDTB)on 11-16 SARS-CoV-2 (COVID-19) RNA MORGAN+probe Ql (Unsp spec) Not detected Normal NOT DETECTED [facility] Comment on above: Result Comment: This test is not yet approved or cleared by the [place] FDA. When there are no FDA-approved or cleared tests available, and other criteria are met, FDA can make tests available under an emergency access mechanism called an Emergency Use Authorization (EUA). The EUA for this test is supported by the [place] of Health and Human Service's (HHS's) declaration [...] SARS-CoV-2. Performed By: #### C VDTB #### [facility] [address] [place] [address] Dr. Carol Anaya CBC AUTO DIFFon 12-01-2021 BASO # 0.0 103/ul Normal 0.0-0.1 [facility] Comment on above: Performed By: #### C BC #### [facility] [address] [place] [address] Dr. Carol Anaya Basophils/100 WBC (Bld) 0.7 % Normal 0.2-2.0 [facility] Comment on above: Performed By: #### C BC #### [facility] [address] [place] [address] Dr. Carol Anaya EO # 0.1 103/ul Normal 0.0-0.7 [facility] Comment on above: Performed By: #### C BC #### [facility] [address] [place] [address] Dr. Carol Anaya Eosinophils/100 WBC (Bld) 2.4 % Normal 0.9-7.0 [facility] Comment on above: Performed By: #### C BC #### [facility] [address] [place] [address] Dr. Carol Anaya Erythrocyte distribution width (RBC) [Ratio] 12.9 % Normal 11.0-15.0 [facility] Comment on above: Performed By: #### C BC #### [facility] [address] [place] [address] Dr. Carol Anaya Hematocrit (Bld) [Volume fraction] 43.3 % Normal 42.0-54.0 [facility] Comment on above: Performed By: #### C BC #### [facility] [address] [place] [address] Dr. Carol Anaya Hemoglobin (Bld) [Mass/Vol] 14.3 g/dL Normal 14.0-18.0 [facility] Comment on above: Performed By: #### C BC #### [facility] [address] [place] [address] Dr. Carol Anaya IG # 0.02 10e3/ul Normal 0.00-0.03 [facility] Comment on above: Performed By: #### C BC #### [facility] [address] [place] [address] Dr. Carol Aanya IG % 0.3 % Normal 0.0-0.5 [facility] Comment on above: Performed By: #### C BC #### [facility] [address] [place] [address] Dr. Carol Anaya LYMPH # 1.4 103/ul Normal 1.2-3.8 [facility] Comment on above: Performed By: #### C BC #### [facility] [address] [place] [address] Dr. Carol Anaya Lymphocytes/100 WBC (Bld) 24.9 % Normal 20.5-60.0 [facility] Comment on above: Performed By: #### C BC #### [facility] [address] [place] [address] Dr. Carol Anaya MANUAL DIFF REQ NO Normal [facility] Comment on above: Performed By: #### C BC #### [facility] [address] [place] [address] Dr. Carol Anaya MCH (RBC) [Entitic mass] 27.7 pg Normal 25.9-34.0 [facility] Comment on above: Performed By: #### C BC #### [facility] [address] [place] [address] Dr. Carol Anaya MCHC (RBC) [Mass/Vol] 33.0 g/dL Normal 29.9-35.2 [facility] Comment on above: Performed By: #### C BC #### [facility] [address] [place] [address] Dr. Carol Anaya MCV (RBC) [Entitic vol] 83.9 fL Normal 80.0-94.0 [facility] Comment on above: Performed By: #### C BC #### [facility] [address] [address] [address] Carol Anaya MONO # 0.6 103/ul Normal 0.3-0.8 [facility] Comment on above: Performed By: #### C BC #### [facility] [address] [address] [address] Carol Anaya Monocytes/100 WBC (Bld) 9.8 % Normal 1.7-12.0 [facility] Comment on above: Performed By: #### C BC #### [facility] [address] [address] [address] Carol Anaya NEUT # 3.6 103/ul Normal 1.4-6.5 [facility] Comment on above: Performed By: #### C BC #### [facility] [address] [place] [address] Dr. Carol Anaya Neutrophils/100 WBC (Bld) 61.9 % Normal 43.0-75.0 [facility] Comment on above: Performed By: #### C BC #### [facility] [address] [place] [address] Dr. Carol Anaya Platelet mean volume (Bld) [Entitic vol] 8.3 fL Critically low 9.5-13.5 [facility] Comment on above: Performed By: #### C BC #### [facility] [address] [place] [address] Dr. Carol Anaya PLT 292 103/ul Normal 150-450 [facility] Comment on above: Performed By: #### C BC #### [facility] [address] [place] [address] Dr. Carol Anaya RBC 5.16 106/ul Normal 4.70-6.10 [facility] Comment on above: Performed By: #### C BC #### [facility] [address] [address] [address] Carol Anaya WBC 5.7 103/ul Normal 4.0-11.0 [facility] Comment on above: Performed By: #### C BC #### [facility] [address] [address] [address] Carol Anaya PROF CHEM 8 (BAS METB)on Anion gap [Moles/Vol] 9.4 mmol/L Normal [facility] Comment on above: Performed By: #### B MP #### [facility] [address] [place] [address] Dr. Carol Anaya Calcium [Mass/Vol] 9.8 mg/dL Normal 8.4-10.2 [facility] Comment on above: Performed By: #### B MP #### [facility] [address] [place] [address] Dr. Carol Anaya Chloride [Moles/Vol] 100 mmol/L Normal 98-107 [facility] Comment on above: Performed By: #### B MP #### [facility] [address] [place] [address] Dr. Carol Anaya CO2 [Moles/Vol] 30.3 mmol/L Critically high 22.0-30.0 [facility] Comment on above: Performed By: #### B MP #### [facility] [address] [place] [address] Dr. Carol Anaya Creatinine [Mass/Vol] 0.79 mg/dL Normal 0.66-1.25 [facility] Comment on above: Performed By: #### B MP #### [facility] [address] [place] [address] Dr. Carol Anaya EGFR-AF ISRAELI >60 Normal >=60 [facility] Comment on above: Performed By: #### B MP #### [facility] [address] [place] [address] Dr. Carol Anaya EGFR-NON AF ISRAELI >60 Normal >=60 [facility] Comment on above: Performed By: #### B MP #### [facility] [address] [place] [address] Dr. Carol Anaya Glucose [Mass/Vol] 99 mg/dL Normal 74-106 [facility] Comment on above: Performed By: #### B MP #### [facility] [address] [place] [address] Dr. Carol Anaya Potassium [Moles/Vol] 3.7 mmol/L Normal 3.4-5.0 [facility] Comment on above: Performed By: #### B MP #### [facility] [address] [address] [address] Carol Anaya Sodium [Moles/Vol] 136 mmol/L Critically low 137-145 Th [facility] Comment on above: Performed By: #### B MP #### [facility] [address] [address] [address] Carol Anaya Urea nitrogen [Mass/Vol] 20.0 mg/dL Normal 9.0-20.0 [facility] Comment on above: Performed By: #### B MP #### [facility] [address] [address] [address] Carol Anaya Urea nitrogen/Creatinine [Mass ratio] 25.3 mg/mg Normal [facility] Comment on above: Performed By: #### B MP #### [facility] [address] [place] [address] Dr. Carol Anaya SURGICAL PATHOLOGYon 018 SURGICAL PATHOLOGY Specimen #: [id number] Physician: BREANA SAHU M.D. FINAL DIAGNOSISSoft tissue, left hip, biopsy - Lobules [...] and Soft Tissue Pathology Consultation Service at [phone] with questions or if additional follow-up information becomesavailable regarding this patient. This case was reviewed in conjunctionwith the bone and soft tissue pathology fellow, Margarito Hu MD. ALEXEY/MILY/maikel 03/19/18Jose M Thomas M.D.(Electronic Signature) SPECIMEN SUBMITTEDA: 1 SLIDE AND 1 BLOCK ([id number]) CLINICAL DATANone provided.Patient ID #: Date of Report: 03/19/2018Date of Procedure: 03/16/2018Date of Receipt: 03/16/2018Submitted by: BREANA SAHU M.D.Location: Diagnostic interpretation performed at [facility], [address] [place] [address]. Normal [facility] Comment on above: Performed By: [...] healing, subsequent encounterTECHNOLOGIST PROVIDED HISTORY:Reason for exam:->COMPRESSION FXFINDINGS:BONES/ALIGNM ENT: The height and alignment of the thoracic [...] linear increased signal in the cord from [id number] T11. This is not seen on the [...] elements at the surgical level.Interpreted by:KERRI Schofieldigned by:Yudith Garrett MD02/06/18inal result Normal [facility] Progress Noteon 02-06-2018 HIM IP Note OR Philosophy Specialist Normal [facility] Vital Signs Date Time Vital Sign Value Performing Clinician Facility 03-26-2025 13:30-0400 Body temperature 98.01 [degF] [address] 03-26-2025 13:30-0400 Diastolic blood pressure 65 mm[Hg] [address] 03-26-2025 13:30-0400 Heart rate 73 /min [address] 03-26-2025 13:30-0400 Respiratory rate 20 /min [address] [facility] 03-26-2025 13:30-0400 Systolic blood pressure 102 mm[Hg] [address] 03-26-2025 12:00-0400 Body mass index (BMI) [Ratio] 21.52 kg/m2 [address] 03-26-2025 12:00-0400 Body weight 68.[address] 03-04-2025 14:43-0400 Body height 177.8 cm Brooklyn Wolff MD Work Phone: [facility] 03-04-2025 14:43-0400 Body mass index (BMI) [Ratio] 20.09 kg/m2 Brooklyn Wolff MD Work Phone: [facility] 03-04-2025 14:43-0400 Body weight 63.5 kg Brooklyn Wolff MD Work Phone: [facility] 01-24-2025 12:49-0400 Body height 177.8 cm Bret Mirza MD Work Phone: [facility] 01-24-2025 12:49-0400 Body mass index (BMI) [Ratio] 20.4 kg/m2 Bret Mirza MD Work Phone: [facility] 01-24-2025 12:49-0400 Body weight 64.5 kg Bret Mirza MD Work Phone: [facility] 01-24-2025 12:49-0400 Diastolic blood pressure 84 mm[Hg] Bret Mirza MD Work Phone: [facility] 01-24-2025 12:49-0400 Heart rate 91 /min Bret Mirza MD Work Phone: [facility] 01-24-2025 12:49-0400 Systolic blood pressure 105 mm[Hg] Bret Mirza MD Work Phone: [facility] 12-03-2024 01:23-0500 Diastolic blood pressure 70 mm[Hg] Casey Carpio MD Work Phone: [facility] 12-03-2024 01:23-0500 Heart rate 82 /min Casey Carpio MD Work Phone: [facility] 12-03-2024 01:23-0500 Respiratory rate 20 /min Casey Carpio MD Work Phone: [facility] 12-03-2024 01:23-0500 SaO2% (BldA) [Mass fraction] 99 % Casey Carpio MD Work Phone: [facility] 12-03-2024 01:23-0500 Systolic blood pressure 119 mm[Hg] Casey Carpio MD Work Phone: [facility] 12-02-2024 18:47-0500 Body height 177.8 cm Casey Carpio MD Work Phone: [facility] 12-02-2024 18:47-0500 Body temperature 98 [degF] Casey Carpio MD Work Phone: [facility] 12-02-2024 18:47-0500 Body weight 64.2 kg Casey Carpio MD Work Phone: [facility] 11-22-2024 10:11-0500 Body height 177.8 cm Brooklyn Wolff MD Work Phone: [facility] 11-22-2024 10:11-0500 Body mass index (BMI) [Ratio] 22.24 kg/m2 Brooklyn Wolff MD Work Phone: [facility] 11-22-2024 10:11-0500 Body weight 70.31 kg Brooklyn Wolff MD Work Phone: [facility] 11-14-2024 12:38-0500 Diastolic blood pressure 70 mm[Hg] Casey Carpio MD Work Phone: [facility] 11-14-2024 12:38-0500 Heart rate 65 /min Casey Carpio MD Work Phone: [facility] 11-14-2024 12:38-0500 Respiratory rate 16 /min Casey Carpio MD Work Phone: [facility] 11-14-2024 12:38-0500 SaO2% (BldA) [Mass fraction] 100 % Casey Carpio MD Work Phone: [facility] 11-14-2024 12:38-0500 Systolic blood pressure 114 mm[Hg] Casey Carpio MD Work Phone: [facility] 11-14-2024 11:35-0500 Inhaled oxygen flow rate 8 L/min Casey Carpio MD Work Phone: [facility] 11-14-2024 09:20-0500 Body height 177.8 cm Casey Carpio MD Work Phone: [facility] 11-14-2024 09:20-0500 Body temperature 97.6 [degF] Casey Carpio MD Work Phone: [facility] 11-14-2024 09:20-0500 Body weight 65.2 kg Casey Carpio MD Work Phone: [facility] 10-29-2024 13:18-0500 Body height 177.8 cm Brooklyn Wolff MD Work Phone: [facility] 10-29-2024 13:18-0500 Body mass index (BMI) [Ratio] 22.24 kg/m2 Brooklyn Wolff MD Work Phone: [facility] 10-29-2024 13:18-0500 Body weight 70.31 kg Brooklyn Wolff MD Work Phone: [facility] 10-29-2024 08:36-0500 Body height 177.8 cm Shayan Patterson MD Work Phone: [facility] 10-29-2024 08:36-0500 Body mass index (BMI) [Ratio] 20.17 kg/m2 Shayan Patterson MD Work Phone: [facility] 10-29-2024 08:36-0500 Body weight 63.78 kg Shayan Patterson MD Work Phone: [facility] 10-29-2024 08:36-0500 Diastolic blood pressure 68 mm[Hg] Shayan Patterson MD Work Phone: [facility] 10-29-2024 08:36-0500 Heart rate 84 /min Shayan Patterson MD Work Phone: [facility] 10-29-2024 08:36-0500 SaO2% (BldA) [Mass fraction] 100 % Shayan Patterson MD Work Phone: [facility] 10-29-2024 08:36-0500 Systolic blood pressure 96 mm[Hg] Shayan Patterson MD Work Phone: [facility] 09-16-2024 15:07-0500 Body height 177.8 cm Casey Carpio MD Work Phone: [facility] 09-16-2024 15:07-0500 Body mass index (BMI) [Ratio] 21.1 kg/m2 Casey Carpio MD Work Phone: [facility] 09-16-2024 15:07-0500 Body temperature 97.2 [degF] Casey Carpio MD Work Phone: [facility] 09-16-2024 15:07-0500 Body weight 66.67 kg Casey Carpio MD Work Phone: [facility] 09-16-2024 15:07-0500 Diastolic blood pressure 79 mm[Hg] Casey Carpio MD Work Phone: [facility] 09-16-2024 15:07-0500 Heart rate 106 /min Casey Carpio MD Work Phone: [facility] 09-16-2024 15:07-0500 Respiratory rate 18 /min Casey Carpio MD Work Phone: [facility] 09-16-2024 15:07-0500 SaO2% (BldA) [Mass fraction] 98 % Casey Carpio MD Work Phone: [facility] 09-16-2024 15:07-0500 Systolic blood pressure 114 mm[Hg] Casey Carpio MD Work Phone: [facility] 08-26-2024 16:29-0500 Body height 177.8 cm [facility] 08-26-2024 16:29-0500 Body mass index (BMI) [Ratio] 21.2 kg/m2 [facility] 08-26-2024 16:29-0500 Body temperature 97.9 [degF] [facility] 08-26-2024 16:29-0500 Body weight 67.13 kg [facility] 08-26-2024 16:29-0500 Diastolic blood pressure 85 mm[Hg] [facility] 08-26-2024 16:29-0500 Heart rate 103 /min [facility] 08-26-2024 16:29-0500 Respiratory rate 18 /min [facility] 08-26-2024 16:29-0500 SaO2% (BldA) [Mass fraction] 98 % [facility] 08-26-2024 16:29-0500 Systolic blood pressure 117 mm[Hg] [facility] 08-22-2024 09:59-0500 Body height 177.8 cm Bret Mirza MD Work Phone: [facility] 08-22-2024 09:59-0500 Body mass index (BMI) [Ratio] 21.21 kg/m2 Bret Mirza MD Work Phone: [facility] 08-22-2024 09:59-0500 Body weight 67.04 kg Bret Mirza MD Work Phone: [facility] 08-22-2024 09:59-0500 Diastolic blood pressure 64 mm[Hg] Bret Mirza MD Work Phone: [facility] 08-22-2024 09:59-0500 Systolic blood pressure 112 mm[Hg] Bret Mirza MD Work Phone: [facility] 08-21-2024 13:08-0500 Body height 177.8 cm Shayan Patterson MD Work Phone: [facility] 08-21-2024 13:08-0500 Body mass index (BMI) [Ratio] 20.49 kg/m2 Shayan Patterson MD Work Phone: [facility] 08-21-2024 13:08-0500 Body weight 64.77 kg Shayan Patterson MD Work Phone: [facility] 08-21-2024 13:08-0500 Diastolic blood pressure 66 mm[Hg] Shayan aPtterson MD Work Phone: [facility] 08-21-2024 13:08-0500 Heart rate 120 /min Shayan Patterson MD Work Phone: [facility] 08-21-2024 13:08-0500 SaO2% (BldA) [Mass fraction] 98 % Shayan Patterson MD Work Phone: [facility] 08-21-2024 13:08-0500 Systolic blood pressure 108 mm[Hg] Shayan Patterson MD Work Phone: [facility] 08-16-2024 09:54-0400 Body height 177.8 cm Lola CALVERT Work Phone: [facility] 08-16-2024 09:54-0400 Body mass index (BMI) [Ratio] 20.09 kg/m2 Lola CALVERT Work Phone: [facility] 08-16-2024 09:54-0400 Body weight 63.5 kg Lola CALVRET Work Phone: [facility] 07-12-2024 12:03-0400 Body height 177.8 cm [facility] 07-12-2024 12:03-0400 Body mass index (BMI) [Ratio] 22.24 kg/m2 [facility] 07-12-2024 12:03-0400 Body weight 70.31 kg [facility] 07-11-2024 09:29-0400 Body height 177.8 cm Bret Mirza MD Work Phone: [facility] 07-11-2024 09:29-0400 Body mass index (BMI) [Ratio] 21.84 kg/m2 Bret Mirza MD Work Phone: [facility] [facility] 07-11-2024 09:29-0400 Body weight 69.04 kg Bret Mirza MD Work Phone: [facility] 07-11-2024 09:29-0400 Diastolic blood pressure 74 mm[Hg] Bret Mirza MD Work Phone: [facility] 07-11-2024 09:29-0400 Systolic blood pressure 124 mm[Hg] Bret Mirza MD Work Phone: [facility] 07-08-2024 14:16-0400 Blood Pressure Location Ion Kirnus [facility] 07-08-2024 14:16-0400 Diastolic blood pressure 80 mm[Hg] Ion Kirnus [facility] 07-08-2024 14:16-0400 Heart rate 92 /min Ion Kirnus [facility] 07-08-2024 14:16-0400 Respiratory rate 16 /min Ion Kirnus [facility] 07-08-2024 14:16-0400 SaO2% (BldA) [Mass fraction] 99 % Ion Kirnus [facility] 07-08-2024 14:16-0400 Systolic blood pressure 130 mm[Hg] Ion Kirnus [facility] 06-18-2024 16:43-0400 Body height 177.8 cm MD Casey Carpio Work Phone: [facility] 06-18-2024 16:43-0400 Body mass index (BMI) [Ratio] 21.7 kg/m2 MD Casey Carpio Work Phone: [facility] 06-18-2024 16:43-0400 Body temperature 99.3 [degF] MD Casey Carpio Work Phone: [facility] 06-18-2024 16:43-0400 Body weight 68.49 kg MD Casey Carpio Work Phone: [facility] 06-18-2024 16:43-0400 Heart rate 71 /min MD Casey Carpio Work Phone: [facility] 06-18-2024 16:43-0400 Respiratory rate 19 /min MD Casey Carpio Work Phone: [facility] 06-18-2024 16:43-0400 SaO2% (BldA) [Mass fraction] 99 % MD Casey Carpio Work Phone: [facility] 05-09-2024 15:25-0400 Diastolic blood pressure 65 mm[Hg] MD Casey Carpio Work Phone: [facility] 05-09-2024 15:25-0400 Heart rate 67 /min MD Casey Carpio Work Phone: [facility] 05-09-2024 15:25-0400 Respiratory rate 16 /min MD Caesy Carpio Work Phone: [facility] 05-09-2024 15:25-0400 SaO2% (BldA) [Mass fraction] 98 % MD Casey Carpio Work Phone: [facility] 05-09-2024 15:25-0400 Systolic blood pressure 108 mm[Hg] MD Casey Carpio Work Phone: [facility] 05-09-2024 14:40-0400 Inhaled oxygen flow rate 6 L/min MD Casey Carpio Work Phone: [facility] 05-09-2024 12:32-0400 Body height 177.8 cm MD Casey Carpio Work Phone: [facility] 05-09-2024 12:32-0400 Body mass index (BMI) [Ratio] 20.9 kg/m2 MD Casey Carpio Work Phone: [facility] 05-09-2024 12:32-0400 Body weight 66.1 kg MD Casey Carpio Work Phone: [facility] 05-09-2024 11:49-0400 Body temperature 97.8 [degF] MD Casey Carpio Work Phone: [facility] 02-26-2024 18:05-0400 Diastolic blood pressure 68 mm[Hg] MD Casey Carpio Work Phone: [facility] 02-26-2024 18:05-0400 Heart rate 72 /min MD Casey Carpio Work Phone: [facility] 02-26-2024 18:05-0400 Respiratory rate 16 /min MD Casey Carpio Work Phone: [facility] 02-26-2024 18:05-0400 SaO2% (BldA) [Mass fraction] 100 % MD Casey Carpio Work Phone: [facility] 02-26-2024 18:05-0400 Systolic blood pressure 110 mm[Hg] MD Casey Carpio Work Phone: [facility] 02-26-2024 17:35-0400 Inhaled oxygen flow rate 6 L/min MD Casey Carpio Work Phone: [facility] 02-26-2024 16:39-0400 Body height 177.8 cm MD Casey Carpio Work Phone: [facility] 02-26-2024 16:39-0400 Body mass index (BMI) [Ratio] 20 kg/m2 MD Casey Carpio Work Phone: [facility] 02-26-2024 16:39-0400 Body weight 63.5 kg MD Casey Carpio Work Phone: [facility] 02-26-2024 12:51-0400 Body temperature 98.4 [degF] MD Casey Carpio Work Phone: [facility] 01-24-2024 12:20-0400 Body height 177.8 cm [facility] 01-24-2024 12:20-0400 Body mass index (BMI) [Ratio] 20.2 kg/m2 [facility] 01-24-2024 12:20-0400 Body weight 63.95 kg [facility] 01-24-2024 12:20-0400 Diastolic blood pressure 24 mm[Hg] [facility] 01-24-2024 12:20-0400 Heart rate 107 /min [facility] 01-24-2024 12:20-0400 Respiratory rate 16 /min [facility] 01-24-2024 12:20-0400 SaO2% (BldA) [Mass fraction] 98 % [facility] 01-24-2024 12:20-0400 Systolic blood pressure 128 mm[Hg] [facility] Encounters Encounter Date Encounter Type Care Provider Facility Start: 04-01-2025 ambulatory Casey Carpio Facility :[facility] Start: 03-26-2025 End: 03-26-2025 ambulatory [facility] 5 [facility] Comment on above: Crohn's colitis, wit h intestinal obstruction (CMS-HCC) (Primary Dx) Start: 03-25-2025 ambulatory Casey Carpio Facility :[id number] Start: 03-24-2025 End: 03-24-2025 [facility] Start: 03-21-2025 End: 03-24-2025 Evaluation and management of inpatient JOSUÉID M STACIE [facility] Start: 03-20-2025 End: 03-24-2025 ambulatory [facility] Start: 03-19-2025 End: 03-19-2025 ambulatory Casey Carpio MD Work Phone: [facility] Work Phone: Start: 03-19-2025 End: 03-19-2025 Departed Referred Casey Carpio MD Work Phone: [facility] [place] Work Phone: Start: 03-09-2025 End: 03-09-2025 Emergency department patient visit [facility] Start: 03-06-2025 End: 03-06-2025 Patient encounter procedure aCsey Carpio MD Work Phone: [facility] Work Phone: Start: 03-06-2025 End: 03-06-2025 ambulatory Casey Carpio MD Work Phone: [facility] Work Phone: Start: 03-04-2025 End: 03-04-2025 Office outpatient visit 15 minutes Brooklyn Taylor MD Work Phone: [facility] [employer] Comment on above: Abdominal wall mass of right lower quadrant (Primary Dx); Abdominal wall mass of left lower quadrant Start: 03-04-2025 End: 03-04-2025 ambulatory BROOKLYN TAYLOR V Not Available Start: 02-24-2025 End: 02-24-2025 ambulatory Casey Carpio Facility:[facility] Start: 02-17-2025 End: 02-17-2025 Emergency department patient visit [facility] Start: 02-04-2025 End: 02-05-2025 Refill Kristal Masters [facility] Comment on above: Prior Authorization (Humira) Start: 02-03-2025 End: 02-04-2025 Telephone encounter April Cohen CMA [facility] Start: 02-02-2025 End: 02-03-2025 Emergency department patient [facility] Start: 02-02-2025 End: 02-02-2025 Telephone encounter Cherrie Cuellar [facility] Comment on above: Crohn's Disease Start: 01-27-2025 End: 01-27-2025 ambulatory [facility] Start: 01-24-2025 End: 01-24-2025 Telephone encounter [facility] Work Phone: [facility] Start: 01-24-2025 End: 01-24-2025 [facility] Start: 01-24-2025 End: 01-24-2025 Office outpatient visit 25 minutes Bret Mirza MD Work Phone: [facility] Comment on above: Crohn's disease of b oth small and large intestine without complication ([facility]) (Primary Dx) Start: 01-21-2025 End: 01-22-2025 Pre-admission assessment Kira Velez [facility] Start: 01-12-2025 End: 01-13-2025 Emergency department patient visit [facility] Start: 12-27-2024 End: 12-27-2024 ambulatory Kira Velez Facility:[facility] Start: 12-13-2024 End: 12-13-2024 Emergency department patient visit [facility] Start: 12-02-2024 End: 12-03-2024 Emergency department patient visit Casey Carpio MD Work Phone: [facility] Work Phone: Start: 11-25-2024 End: 11-25-2024 ambulatory Casey Carpio Facility:[facility] Start: 11-22-2024 End: 11-22-2024 Telephone encounter Brooklyn Taylor MD Work Phone: [facility] Start: 11-22-2024 End: 11-22-2024 Postop follow up visit related to original px Brooklyn Taylor MD Work Phone: [facility] Comment on above: Benign lipomatous ne oplasm of skin and subcutaneous tissue of trunk (Primary Dx) Start: 11-22-2024 End: 11-22-2024 ambulatory BROOKLYN TAYLOR V Not Available Start: 11-21-2024 End: 11-21-2024 ambulatory Casey Carpio Facility:[facility] Start: 11-20-2024 End: 11-20-2024 Telephone encounter Brooklyn Taylor MD Work Phone: [facility] Start: 11-14-2024 End: 11-14-2024 Admission to same day surgery center Casey Carpio MD Work Phone: [facility] [place] Start: 11-14-2024 End: 11-14-2024 ambulatory Casey Carpio MD Work Phone: [facility] Work Phone: Start: 11-13-2024 End: 11-13-2024 [place] flowsheet Brooklyn Taylor MD Work Phone: [facility] Start: 11-13-2024 End: 11-13-2024 [place] flowsrenate Wolff MD Work Phone: [facility] Start: 11-11-2024 End: 11-26-2024 ambulatory Casey Carpio Facility:[id number] Start: 11-05-2024 End: 11-09-2024 Emergency department patient visit [facility] Start: 11-05-2024 End: 11-08-2024 Evaluation and management of inpatient [facility] Start: 11-04-2024 End: 11-09-2024 Emergency department patient visit [facility] Start: 10-31-2024 End: 10-31-2024 ambulatory Casey Carpio MD Work Phone: [facility] Work Phone: Start: 10-31-2024 End: 10-31-2024 Departed Referred Casey Carpio MD Work Phone: [facility] Work Phone: Start: 10-31-2024 End: 10-31-2024 Patient encounter procedure Casey Carpio MD Work Phone: [facility] Work Phone: Start: 10-29-2024 End: 10-29-2024 Telephone encounter Brooklyn Taylor MD Work Phone: [facility] Start: 10-29-2024 End: 10-29-2024 Office outpatient visit 15 minutes Brooklyn Taylor MD Work Phone: [facility] Comment on above: Left groin mass (Farzana nabor Dx); Right groin mass Start: 10-29-2024 End: 10-29-2024 ambulatory BROOK[facility]N TAYLOR V Not Available Start: 10-29-2024 End: 10-29-2024 Office outpatient visit 15 minutes Shayan Patterson MD Work Phone: [facility] Comment on above: Chest pain, unspecif ied type (Primary Dx); Crohn's disease with complication, unspecified gastrointestinal tract location (CMS-HCC); Palpitation Start: 10-29-2024 End: 10-29-2024 amb[address] [facility] Start: 10-28-2024 End: 10-28-2024 Telephone encounter Lexie Weldon CMA [facility] Start: 10-22-2024 End: 10-22-2024 ambulatory [facility] Start: 10-21-2024 End: 10-21-2024 Emergency department patient visit [facility] Start: 10-15-2024 End: 10-15-2024 ambulatory Kira Rosie Facility:[facility] Start: 10-10-2024 End: 11-11-2024 ambulatory [facility] Facility:[id number] Start: 10-08-2024 End: 10-09-2024 ambulatory [facility] Start: 09-16-2024 End: 09-16-2024 Patient encounter procedure Casey Carpio MD Work Phone: [facility] Work Phone: Start: 09-10-2024 End: 09-10-2024 ambulatory Casey Carpio Facility:[facility] Start: 09-06-2024 End: 09-06-2024 Telephone encounter Bal Russell LPN [facility] Comment on above: Crohn's colitis, wit h intestinal obstruction (CMS-HCC) (Primary Dx) Start: 09-03-2024 End: 09-03-2024 Telephone encounter Bal Russell LPN [facility] Comment on above: Postop check (Primar y Dx) Start: 09-03-2024 End: 09-03-2024 Postop follow up visit related to original px Raj Katz OR Work Phone: [facility] Comment on above: Crohn's colitis, wit h intestinal obstruction (CMS-HCC) (Primary Dx) Start: 09-03-2024 End: 09-03-2024 ambulatory [place] [facility] Start: 08-27-2024 End: 08-27-2024 Office outpatient visit 15 minutes Brooklyn Taylor MD Work Phone: [facility] Comment on above: Left groin mass (Farzana nabor Dx) Start: 08-27-2024 End: 08-27-2024 ambulatory BROOKLYN TAYLOR V Not Available Start: 08-26-2024 End: 08-26-2024 Departed Referred Radha Dee MICROPHONE OPERATOR Work Phone: [facility] [place] Work Phone: Start: 08-26-2024 End: 08-26-2024 Patient encounter [facility] Work Phone: Start: 08-26-2024 End: 08-26-2024 ambulatory Bret Mirza MD Work Phone: [facility] Comment on above: Ileocolitis (Primary Dx) Start: 08-22-2024 End: 08-22-2024 Telephone encounter Bret Mirza MD Work Phone: [facility] Start: 08-22-2024 End: 08-22-2024 Office outpatient visit 25 minutes Bret Mirza MD Work Phone: [facility] Comment on above: Crohn's disease of c olon with intestinal obstruction ([facility]-H[facility]) (Primary Dx) Start: 08-22-2024 End: 08-22-2024 ambulatory [facility] Start: 08-21-2024 End: 08-21-2024 Office outpatient new 60 minutes Venus Alegre MD Work Phone: [facility] Comment on above: Palpitation (Primary Dx); Chest pain, unspecified type; Crohn's disease with complication, unspecified gastrointestinal tract location ([facility]) Start: 08-21-2024 End: 08-21-2024 ambulatory [facility] Start: 08-20-2024 End: 08-20-2024 Telephone encounter Karo [facility] Start: 08-16-2024 End: 08-16-2024 Postop follow up visit related to original px Lola CALVERT Work Phone: [facility] Comment on above: Diffuse abdominal pa in (Primary Dx) Start: 08-16-2024 End: 08-16-2024 [facility] LOLA WRIGHT [facility] Start: 08-16-2024 End: 08-16-2024 [facility] LOLA WRIGHT [facility] Start: 08-15-2024 End: 08-15-2024 Chart abstracting Scanning Provider External [facility] Start: 08-10-2024 End: 08-10-2024 Emergency department patient visit [facility] Start: 08-05-2024 End: 08-05-2024 Postop follow up visit related to original px Nessa Knox MICROPHONE OPERATOR-DIRECTOR OF WORKFORCE DEVELOPMENT Work Phone: [facility] Comment on above: Postop check (Primar y Dx) Start: 08-05-2024 End: 08-05-2024 ambulatory NESSA KONX [facility] Start: 07-29-2024 End: 07-29-2024 ambulatory Casey Carpio Facility:[facility] Start: 07-22-2024 End: 07-22-2024 Evaluation and management of inpatient LEXIE SILVA [facility] Start: 07-16-2024 End: 07-16-2024 Refill Bret Mirza MD Work Phone: [facility] Start: 07-15-2024 End: 07-22-2024 Evaluation and management of inpatient [facility] Start: 07-15-2024 End: 07-16-2024 Refill Bret Mirza MD Work Phone: [facility] Start: 07-15-2024 End: 07-22-2024 Evaluation and management of inpatient [facility] Start: 07-13-2024 End: 07-14-2024 Emergency department patient visit [facility] Start: 07-12-2024 End: 07-12-2024 Evaluation and management of inpatient CASEY CARPIO [facility] Start: 07-12-2024 End: 07-12-2024 [facility] Start: 07-11-2024 End: 07-11-2024 Telephone encounter [facility] Work Phone: [facility] Start: 07-11-2024 End: 07-11-2024 Office outpatient new 45 minutes Bret Mirza MD Work Phone: [facility] Comment on above: Ileitis (Primary Dx) Start: 07-11-2024 End: 07-11-2024 ambulatory [facility] Start: 07-10-2024 End: 07-10-2024 [facility] Start: 07-10-2024 End: 07-23-2024 Pre-admission assessment Ion Rogers [facility] Start: 07-08-2024 End: 07-08-2024 ambulatory Ion Rogers [facility] Start: 07-08-2024 End: 07-08-2024 Patient encounter procedure Ino Rogers [facility] Start: 07-01-2024 End: 07-01-2024 ambulatory Casey Carpio Facility:[facility] Start: 06-27-2024 Non-patient / Non-visit [facility] Work Phone: Start: 06-18-2024 End: 06-18-2024 ambulatory MD Casey Carpio Work Phone: [facility] Work Phone: Start: 06-18-2024 End: 06-18-2024 Patient encounter procedure MD Casey Carpio Work Phone: [facility] Work Phone: Start: 05-21-2024 End: 05-21-2024 ambulatory BROOKLYN TAYLOR V Not Available Start: 05-09-2024 End: 05-09-2024 Admission to same day surgery center MD Casey Carpio Work Phone: [facility] [place] Start: 05-09-2024 End: 05-09-2024 ambulatory MD Casey Carpio Work Phone: [facility] Work Phone: Start: 05-03-2024 End: 05-03-2024 Departed Referred MD Casey Carpio Work Phone: [facility] Work Phone: Start: 05-03-2024 End: 05-03-2024 Patient encounter procedure MD Casey Carpio Work Phone: [facility] Work Phone: Start: 05-03-2024 End: 05-03-2024 ambulatory MD Casey Carpio Work Phone: [facility] Work Phone: Start: 04-09-2024 End: 04-09-2024 ambulatory BROOKLYN TAYLOR V Not Available Start: 04-09-2024 End: 04-09-2024 ambulatory Casey Carpio Facility:[facility] Start: 03-19-2024 End: 03-19-2024 ambulatory BROOKLYN TAYLOR V Not Available Start: 02-26-2024 End: 02-26-2024 Admission to same day surgery center MD Casey Carpio Work Phone: [facility] [place] Start: 02-26-2024 End: 02-26-2024 ambulatory MD Casey Carpio Work Phone: [facility] Work Phone: Start: 02-21-2024 End: 02-21-2024 Patient encounter procedure KARO VEGA [facility] Start: 02-09-2024 End: 02-09-2024 Patient encounter procedure KARO VEGA [facility] Start: 01-24-2024 End: 01-24-2024 ambulatory [facility] Work Phone: Start: 01-24-2024 End: 01-24-2024 Patient encounter procedure [facility] Work Phone: Start: 08-17-2023 End: 08-20-2023 ambulatory MIKHAIL Andre WILDER [facility] Start: 08-04-2023 ambulatory DARRION BARTH [facility] Start: 07-25-2023 End: 07-25-2023 Emergency department patient visit [facility] Start: 06-22-2023 End: 06-22-2023 Emergency department patient visit [facility] Start: 08-20-2022 End: 08-20-[address] NONE LISTED REQUEST Facility:[facility] Start: 07-21-2022 End: 07-21-[address] NONE LISTED REQUEST Facility:[facility] Start: 12-08-2021 End: 12-08-2021 ambulatory GAIL M LUE . Facility: Start: 12-07-2021 Encounter for preprocedural laboratory examination GAIL M LUE . [facility] Start: 12-04-2021 End: 12-05-2021 ambulatory GAIL M LUE . Facility: Start: 12-04-2021 End: 12-05-2021 Encounter for preprocedural laboratory examination GAIL M LUE . Facility: Start: 12-03-2021 Encounter for preprocedural cardiovascular examination GAIL M LUE . [facility] Start: 12-03-2021 Encounter for preprocedural laboratory examination GAIL M LUE . [facility] Start: 12-01-2021 End: 12-02-2021 ambulatory GAIL M LUE . Facility: Start: 12-01-2021 End: 12-02-2021 Encounter for preprocedural cardiovascular examination GAIL M LUE . Facility: Start: 02-06-2018 End: 02-09-2018 Ambulatory NARGIS VERONICA [facility] Procedures Date Procedure Procedure Detail Performing Clinician Start: 12-02-2024 Computed tomography of abdomen and pelvis with contrast Casey Carpio MD Work Phone: Start: 12-02-2024 Viral nucleic acid assay Casey Carpio MD Work Phone: Start: 11-14-2024 Excision of cyst Casey Carpio MD Work Phone: Start: 10-29-2024 Follow-up visit Follow-up SHAYAN VALENCIA Start: 09-03-2024 Follow-up visit Follow-up RAJ KATZ Start: 07-15-2024 Adult depression scr eening assessment Bret Mirza MD Work Phone: Start: 07-11-2024 History of colectomy Shantal Espinoza Comment on above: Done at [facility]/to ledo took some of the rot venkatesh intestine out for the colitis Start: 05-21-2024 H/O: surgery History of rem oval of retained hardware Brooklyn Wolff MD Work Phone: Start: 05-09-2024 Excision of cyst MD Jose E Carpio Work Phone: Start: 02-26-2024 Excision of cyst MD Jose E Carpio Work Phone: Start: 02-06-2018 Mri spinal canal o tiffanie w/o contrast matrl RATUL RAYCHAUDHURI Arthroscopy of knee KARO VEGA Cholecystectomy KARO ROSE Cyst of epididymis (disorder) KARO VEGA Plan of Treatment Date Care Activity Detail Author Start: 09-16-2034 DTaP,Tdap and Td Vaccines (6 - Td or Tdap) DTaP,Tdap and Td Vaccines (6 - Td or Tdap) [facility] Start: 03-21-2026 Tobacco Screening Tobacco Screening [facility] Start: 03-20-2026 Adult BMI Screening Adult BMI Screening [facility] Start: 02-02-2026 Tobacco Screening Tobacco Screening [facility] Start: 01-24-2026 Adult BMI Screening Adult BMI Screening [facility] Start: 01-24-2026 Tobacco Screening Tobacco Screening [facility] Start: 10-29-2025 Adult BMI Screening Adult BMI Screening [facility] Start: 10-21-2025 Adult BMI Screening Adult BMI Screening [facility] Start: 10-21-2025 Tobacco Screening Tobacco Screening [facility] Start: 09-03-2025 Tobacco Screening Tobacco Screening [facility] Start: 08-22-2025 Adult BMI Screening Adult BMI Screening [facility] Start: 08-22-2025 Tobacco Screening Tobacco Screening [facility] Start: 08-21-2025 Adult BMI Screening Adult BMI Scre[facility] Start: 08-21-2025 Tobacco Screening Tobacco Screening [facility] Start: 08-16-2025 Adult BMI Screening Adult BMI Screening [facility] Start: 08-16-2025 Tobacco Screening Tobacco Screening [facility] Start: 08-10-2025 Adult BMI Screening Adult BMI Screening [facility] Start: 07-22-2025 Adult BMI Screening Adult BMI Screening [facility] Start: 07-18-2025 Tobacco Screening Tobacco Screening [facility] Start: 07-15-2025 Adult BMI Screening Adult BMI Screening [facility] Start: 07-15-2025 Depression Screening Depression Screening [facility] Start: 07-15-2025 Tobacco Screening Tobacco Screening [facility] Start: 07-13-2025 Adult BMI Screening Adult BMI Screening [facility] Start: 07-13-2025 Tobacco Screening Tobacco Screening [facility] Start: 07-11-2025 Adult BMI Screening Adult BMI Screening [facility] Start: 07-11-2025 Tobacco Screening Tobacco Screening [facility] Start: 07-10-2025 Adult BMI Screening Adult BMI Screening [facility] Start: 06-16-2025 Influenza vaccination Influenza Vaccine [facility] Start: 05-21-2025 End: 05-21-2025 ambulatory 05/21/2025 11:00 AM EDT [facility] [address] [place] [address] [address] [place] [address] [facility] Start: 05-20-2025 End: 05-20-2025 Admission to same day surgery center 05/20/2025 2:00 PM EDT - 05/20/2025 2:30 PM EDT Surgery [facility] - Endoscopy [address] [place] [address], [address] [place] [address] [place] [address] [place] [address], [address] [place] [address] ESOPHAGOGASTRODUODENOSCOPY DIAGNOSTIC [01072 (CPT )] [facility] Comment on above: ESOPHAGOGASTRODUODENOSCOPY DIAGNOSTIC [4 3235 (CPT )] Start: 05-20-2025 End: 05-20-2025 Colonoscopy COLONOSCOPY DIAGNOSTIC / SCREENING Crohn's disease of both small and large intestine without complication ([facility]) [K50.80] - Primary 05/20/2025 2:00 PM EDT [facility] Start: 05-20-2025 End: 05-20-2025 Esophagogastroduodenoscopy transoral diagnostic ESOPHAGOGASTRODUODENOSCOPY DIAGNOSTIC Crohn's disease of both small and large intestine without complication ([facility]) [K50.80] - Primary 05/20/2025 2:00 PM EDT [facility] Start: 05-20-2025 Subsequent hospital visit by physician 05/20/2025 2:00 PM EDT Hospital Encounter [facility] Endoscopy [address] [place] [address], [address] [place] [address] [place] [address] [place] [address], [address] [place] [address] [facility] Start: 05-20-2025 End: 05-20-2025 Patient encounter procedure 05/20/2025 9:15 AM EDT Off ice Visit [facility] Department of [address] [place] [address] [place] [address] [place] [address], [address] [place] [address] [facility] Department of [facility] Start: 04-23-2025 End: 04-23-2025 ambulatory 04/23/2025 11:00 AM EDT Infusion [facility] [address] [place] [address] [address] [place] [address] [facility] Start: 04-10-2025 End: 04-10-2025 Admission to same day surgery center 04/10/2025 8:30 AM EDT - 04/10/2025 9:00 AM EDT Surgery [facility]oscopy [address] [place] [address], [address] [place] [phone] Bret Mirza MD [address] [facility] [place] [address] ESOPHAGOGASTRODUODENOSCOPY DIAGNOSTIC [95752 (CPT )] [facility] Comment on above: ESOPHAGOGASTRODUODENOSCOPY DIAGNOSTIC [4 6565 (CPT )] Start: 04-10-2025 End: 04-10-2025 Colonoscopy COLONOSCOPY DIAGNOSTIC / SCREENING Crohn's disease of both small and large intestine without complication (CMS-HCC) [K50.80] - Primary 04/10/2025 8:30 AM EDT [facility] Start: 04-10-2025 End: 04-10-2025 Esophagogastroduodenoscopy transoral diagnostic ESOPHAGOGASTRODUODENOSCOPY DIAGNOSTIC Crohn's disease of both small and large intestine without complication (CMS-HCC) [K50.80] - Primary 04/10/2025 8:30 AM EDT [facility] Start: 04-10-2025 Subsequent hospital visit by physician 04/10/2025 8:30 AM EDT Hospital Encounter [facility] [address] [place] [address], [address] [place] [phone] Bret Mirza MD [address] [facility], [address] [place] [address] [facility] Start: 03-31-2025 End: 03-31-2025 Patient encounter procedure 03/31/2025 9:30 AM EDT Off ice Visit [facility] [address] [facility] [address] [place] [address] Brooklyn Taylor MD [address] [facility] [address] [place] [address] NIYAH COLORADO Start: 01-30-2025 End: 01-30-2025 Admission to same day surgery center 01/30/2025 11:00 AM EDT - 01/30/2025 11:30 AM EDT Surgery [facility]oscopy [address] [place] [address], [address] [place] [address] Bret Mirza MD [address] [facility], [address] [place] [address] ESOPHAGOGASTRODUODENOSCOPY DIAGNOSTIC [08622 (CPT )] [facility] Comment on above: ESOPHAGOGASTRODUODENOSCOPY DIAGNOSTIC [4 3235 (CPT )] Start: 01-30-2025 End: 01-30-2025 Colonoscopy flx dx w/collj spec when pfrmd COLONOSCOPY DIAGNOSTIC / SCREENING Crohn's disease of both small and large intestine without complication [K50.80] - Primary 01/30/2025 11:00 AM EDT [facility] Start: 01-30-2025 End: 01-30-2025 Esophagogastroduodenoscopy transoral diagnostic ESOPHAGOGASTRODUODENOSCOPY DIAGNOSTIC Crohn's disease of both small and large intestine without complication [K50.80] - Primary 01/30/2025 11:00 AM EDT [facility] Start: 01-30-2025 Subsequent hospital visit by physician 01/30/2025 11:00 AM EDT Hospital Encounter [facility] [address] [place] [address], [address] [place] [address] Bret Mirza MD [address] [facility], [address] [place] [address] [facility] Start: 01-24-2025 End: 01-24-2026 MR Abdomen and Pelvis W contrast PO and WO and W contrast IV MR enterography abdomen/pelvis with and without contrast Imaging Routine Crohn's disease of both small and large intestine without complication ([facility]) Expected: 01/24/2025, Expires: 01/24/2026 [facility] Comment on above: Expected: 01/24/2025, Expires: Start: 11-22-2024 End: 11-22-2024 Patient encounter procedure 11/22/2024 9:45 AM EST Off ice Visit [facility] [address] [place] [phone] Brooklyn Taylor MD [address] [place] [address] [facility] Start: 11-14-2024 End: 11-14-2024 [facility] Start: 10-29-2024 End: 10-29-2024 Patient encounter procedure 10/29/2024 1:15 PM EST Off ice Visit [facility] [address] [facility] [address] [place] [phone] Brooklyn Taylor MD [address] [facility] [address] [place] [address] [facility] Start: 10-29-2024 End: 10-29-2024 Patient encounter procedure [facility] Start: 10-18-2024 End: 10-18-2024 Patient encounter procedure 10/18/2024 8:00 AM EST Off ice Visit [facility] [address] [facility] [address] [place] [address] Venus Alegre MD [address] [place] [address] [facility] Start: 10-02-2024 End: 10-02-2024 Patient encounter procedure 10/02/2024 7:30 AM EST Appointment [facility] - Cardiovascular [address] [place] [address] Shayan Patterson MD [address] [place] [address] [facility] Start: 09-03-2024 End: 09-03-2024 Patient encounter procedure 09/03/2024 9:30 AM EST Off ice Visit [facility] [address] [facility] [place] [phone] Raj Katz PA [address] [facility], [address] [place] [address] [facility] Start: 08-26-2024 [facility] Start: 08-23-2024 End: 08-23-2024 Patient encounter procedure 08/23/2024 10:30 AM EST Office Visit [facility] [address] [facility] [address] [place] [address] Bret Mirza MD [address] [facility], [address] [place] [address] [facility] Start: 08-22-2024 Subsequent hospital visit by physician 08/22/2024 1:00 PM EST Hospital Encounter [facility] [address] [place] [address] Shayan Patterson MD [address] [place] [address] [facility] Start: 08-22-2024 End: 08-22-2024 Patient encounter procedure [facility] Start: 08-21-2024 End: 08-21-2025 Echo complete W/O contrast Echo complete W/O contrast Echocardiography Routine Palpitation Expected: 08/21/2024, Expires: 08/21/2025 [employer] Work Phone: Comment on above: Expected: 08/21/2024, Expires: Start: 08-21-2024 End: 08-21-2025 Holter monitor study Holter monitor 3-5 days Cardiac Services Routine Palpitation Expected: 08/21/2024, Expires: 08/21/2025 [facility] Comment on above: Expected: 08/21/2024, Expires: Start: 08-21-2024 End: 08-21-2024 Patient encounter procedure 08/21/2024 1:30 PM EST Off ice Visit [facility] [address] [place] [address] Venus Alegre MD [address] [place], [place] [phone] Shayan Patterson MD [address] [place] [address] [facility] Start: 08-16-2024 End: 08-16-2025 XR Abdomen AP [facility] Work Phone: Comment on above: Expected: 08/16/2024, Expires: Start: 08-16-2024 End: 08-16-2024 Patient encounter procedure 08/16/2024 12:30 PM EDT Office Visit [facility] [address] [facility] [address] [place] [address] Lola Wright PA [address] [facility], [address] [place] [address] [facility] Start: 07-18-2024 End: 07-18-2024 Admission to same day surgery center 07/18/2024 1:00 PM EDT - 07/18/2024 5:30 PM EDT Surgery [facility] - Surgery [address] [place] [phone] Spencer Gates MD [address] [facility] [place] [address] LAPAROSCOPIC ILEOCECECTOMY [52498 (CPT )] [facility] Comment on above: LAPAROSCOPIC ILEOCECECTOMY [47881 (CPT ) ] Start: 07-18-2024 End: 07-18-2024 Colectomy prtl w/rmvl terminal ileum & ileocolos [facility] Start: 07-18-2024 End: 07-18-2024 Intstinal stricturoplasty w/wo dilat obstrcj STRICTUROPLASTY INTESTINAL CROHNS/STRICTURE 07/18/2024 1:00 PM EDT [facility] Start: 07-18-2024 End: 07-18-2024 Laparoscopy surg ileostomy/jejunostomy non-tube LAPAROSCOPIC ILEOSTOMY CROHNS/STRICTURE 07/18/2024 1:00 PM EDT [facility] Start: 07-18-2024 End: 07-18-2024 Laps colectomy prtl w/rmvl terminal ileum LAPAROSCOPIC ILEOCECECTOMY CROHNS/STRICTURE 07/18/2024 1:00 PM EDT [facility] Start: 07-18-2024 Subsequent hospital visit by physician 07/18/2024 1:00 PM EDT Hospital Encounter [facility] - Surgery [address] [place] [address]. [place] [phone] Spencer Gates MD [address] [facility], [address] [place] [address] [facility] - Surgery Start: 07-15-2024 End: 07-15-2024 Admission to same day surgery center 07/15/2024 12:30 PM EDT - 07/15/2024 1:30 PM EDT Surgery [facility] - Endoscopy [address] [place] [phone] Bret Mirza MD [address] [facility], [address] [place] [address] ESOPHAGOGASTRODUODENOSCOPY DIAGNOSTIC [04441 (CPT )] [facility] Endoscopy Comment on above: ESOPHAGOGASTRODUODENOSCOPY DIAGNOSTIC [4 3235 (CPT )] Start: 07-15-2024 End: 07-15-2024 Colonoscopy flx dx w/collj spec when pfrmd COLONOSCOPY DIAGNOSTIC / SCREENING Ileitis 07/15/2024 12:30 PM EDT [facility] Start: 07-15-2024 End: 07-15-2024 Esophagogastroduodenoscopy transoral diagnostic ESOPHAGOGASTRODUODENOSCOPY DIAGNOSTIC Ileitis 07/15/2024 12:30 PM EDT [facility] Start: 07-15-2024 Subsequent hospital visit by physician 07/15/2024 12:30 PM EDT Hospital Encounter [facility] Endoscopy [address] [facility] [place] [phone] [place] [address] [place] [address], [address] [place] [address] [facility] - Endoscopy Start: 07-12-2024 End: 07-12-2024 Admission to establishment 07/12/2024 10:30 AM EDT Support Visit [facility] Pre-Admission [facility] On [address] [address] [facility]Ad[facility] On [facility] Start: 06-16-2024 Influenza vaccination Influenza Vaccine [facility] Start: 05-09-2024 [facility] Start: 05-09-2024 [facility] Start: 02-26-2024 End: 02-26-2024 [facility] Start: 2005 Depression Screening Depression Screening [facility] Start: 2005 Tobacco Screening Tobacco Screening [facility] Start: 2004 DTaP,Tdap and Td Vaccines (5 - Tdap) DTaP,Tdap and Td Vaccines (5 - Tdap) [facility] Start: 1993 Tobacco Counseling Tobacco Counseling [facility] End: 09-03-2025 Basic metabolic 2000 panel - Serum or Plasma Basic Metabolic Panel Lab Routine Postop check 1 Occurrences starting 09/03/2024 until 09/03/2025 [facility] [employer] [facility] Comment on above: 1 Occurrences starting 09/03/2024 until 09/03/2025 End: 07-11-2025 C difficile by PCR C difficile by PCR Lab Routine Ileitis 1 Occurrences starting 07/11/2024 until 07/11/2025 [facility] [employer] [facility] Comment on above: 1 Occurrences starting 07/11/2024 until 07/11/2025 End: 09-03-2025 C-reactive protein C-reactive protein Lab Routine Postop check 1 Occurrences starting 09/03/2024 until 09/03/2025 [facility] [employer] [facility] Comment on above: 1 Occurrences starting 09/03/2024 until 09/03/2025 End: 01-24-2026 C-reactive protein C-reactive protein Lab Routine Crohn's disease of both small and large intestine without complication ([facility]) 1 Occurrences starting 01/24/2025 until 01/24/2026 [facility] [employer] [facility] Comment on above: 1 Occurrences starting 01/24/2025 until 01/24/2026 End: 07-11-2025 Calprotectin, F Calprotectin, F Lab Routine Ileitis 1 Occurrences starting 07/11/2024 until 07/11/2025 [facility] [employer] Comment on above: 1 Occurrences starting 07/11/2024 until 07/11/2025 End: 09-03-2025 Calprotectin, F Calprotectin, F Lab Routine Postop check 1 Occurrences starting 09/03/2024 until 09/03/2025 [facility] [employer] [facility] Comment on above: 1 Occurrences starting 09/03/2024 until 09/03/2025 End: 01-24-2026 Calprotectin, F Calprotectin, F Lab Routine Crohn's disease of both small and large intestine without complication ([facility]) 1 Occurrences starting 01/24/2025 until 01/24/2026 [facility] [employer] [facility] Comment on above: 1 Occurrences starting 01/24/2025 until 01/24/2026 End: 09-03-2025 CBC W Auto Differential panel - Blood CBC auto differential Lab Routine Postop check 1 Occurrences starting 09/03/2024 until 09/03/2025 [employer] Comment on above: 1 Occurrences starting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 Welded Parts Primary: Jane Park RN Inspector Welded Parts Relief: Doreen Carey RN Scrub Relief: ST Katy Scrub Person: ST Manny Yoon Assistant Resident: Sofía Barr MD Pre-op Diagnosis: 1. Crohn's stricture affecting the terminal ileum, ileocecal region and segment of the ascending colon 2. Partial small-bowel obstruction 3. Recent use of high-dose steroids Procedure: 1. Laparoscopic segmental colectomy-segmental right colectomy CPT 34123 ( Wound Class: Clean Contaminated - Incision Closure: Deep and Superficial Layers Post-op Diagnosis: 1. Crohn's stricture affecting the terminal ileum, ileocecal region and segment of the ascending colon 2. Partial small-bowel obstruction 3. Recent use of high-dose steroids Anesthesia Type: General Findings: Inflammatory changes affecting the terminal ileum, ileocecal region, and segment of ascending colon with inflammatory changes, phlegmon formation and partial small-bowel obstruction al Pathologic Diagnosis Right colectomy: Severely active Crohn's disease, involving terminal ileum and ileocecal valve with stricture formation. Inflammatory pseudopolyps. No granuloma, dysplasia or viral inclusions identified. No malignancy identified. Resection margins, free of Crohn's disease Appendix with fibrous obliteration of its lumen. Nine benign regional lymph nodes. Physical Exam: Abd soft non tender non distended abd grayson intact with erythema noted. Grayson removed and steristrips applied OSORIO CHAPARRO APRN-CNP 08/05/24 1459 documented in this encounterLima City Hospital09-27-2024 Instructions* Pre- Procedure Instructions - Cori Wang RN - 07/12/2024 10:30 AM EDT Your surgery/procedure is scheduled at [facility] on 07/15/2024 at 1230 Arrival Time 1030 [facility] Address: [address] [place] [address] in Parking lot located on [facility]. Report to the Entrance B. Check in at the information desk the surgery. The waiting room located on the second floor. If you have any questions prior to surgery, please call Pre-Admission Clinic at [phone] between 7:30 am and 4:30 pm Monday through Monday. If you have questions the morning of surgery, please call the Pre-op Department at [phone]. Notify your SURGEON if you develop any illness such as a cold, cough, fever, sore throat, vomiting or are hospitalized between now and your surgery. Medication Instructions (Do not stop your medications without consulting the prescribing physician). Take the following medications the morning of surgery with a sip of water: Prednisone, Augmentin Diabetic or Weight loss medications: HOLD Na LAST DOSE Na Take inhalers as prescribed the morning of surgery. Due to the risk associated with these medications. If these medications are not held per instruction below, your surgery is at an increased risk for cancellation. SGLT2 Medications- Hold 3 days prior to surgery: Jardiance, Empagliflozin, Farxiga, Dapagliflozin, Invokana, Canagliflozin GLP-1 Medications (Injection or Pill)- If taken daily hold day of surgery. If taken weekly, hold 1 week prior to surgery: Adlyxin, Byetta, Bydureon, Ozempic, Rybelsus,Trulicity, Victoza, Wegovy, Lixisenatide, Exenatide, Semaglutide, Dulaglutide, Liraglutide GIP/GLP-1(Injection or Pill)- If taken daily hold day of surgery. If taken weekly, hold 1 week prior to surgery: Danielunumuro . Blood thinners: Please contact your prescribing physician regarding a stop/hold date for these medications. Medications such as Coumadin, Heparin, Aspirin, Plavix, Eliquis, Pradaxa Diabetics: If you take insulin, contact your prescribing doctor for instructions on how to manage this the night before and the morning of surgery. Non-steriodal Anti-Inflammatory Drugs (NSAIDS)- Hold 3 days prior to surgery unless otherwise directed by your surgeon. Vitamins/Herbal Products: You may continue to take your prescribed vitamins such as potassium, iron, vitamin B, vitamin C, or multivitamin unless specifically instructed by your surgeon to hold. STOPtaking all herbal products/teas one week prior to your surgery. Marijuana: Stop marijuana 72 hours prior to surgery, stop CBD oil 48 hours prior to surgery. If you have been given bowel prep instructions by your surgeon, please call the surgeon's office with any questions about these instructions. What do I do the day of Surgery? Follow bowel prep If applicable, shower again with CHG soap the morning of your surgery. If you received a green plastic bracelet, bring it with you the day of surgery and your nurse will put it on you. In order to help prevent infection post-operatively, you may be asked to use a CHG mouthwash when you arrive to the Pre-op area. Your nurse will provide instruction the morning of. What do I need to do to prepare for surgery? If you will be going home the same day as your surgery, arrange for an adult over [address] Riding in a bus or taxi by yourself is not permitted. You should not smoke or drink alcohol 24 hours before your surgery. Alcohol thins the blood and may cause bleeding problems during surgery. Smoking increases the risk of breathing problems after surgery. Do not use lotions, creams, powders, perfume, make up, cologne or after-shaves day of surgery. Remove ALL jewelry including wedding rings, body piercings (including dermal piercings ,hair extensions that contain metal, nail indonesian, make-up, and contact lens. You may brush your teeth the morning of surgery, but do not swallow the water. Wear your dentures and partial plates to the hospital (no adhesive). Shower the night the before. If applicable, use the CHG (chlorhexidine gluconate) soap or wipes What should I bring to the hospital? If you received a green plastic bracelet, bring it with you the day of surgery and your nurse will put it on you. Eyeglass or contact lens case If you will be spending the night, please bring personal care items and leave them in the car untilyou are taken to your room after surgery. Leave ALL valuables at home. If any of these instructions conflict with those you received from the surgeon, please seek clarification from your surgeon's office. DEEP BREATHING EXERCISES This exercise helps promote good air exchange and helps to prevent pneumonia after surgery. Breathe in slowly and deeply through the nose. Hold your breath for a few seconds and then exhale slowly through the mouth. Repeat this three times and then cough.Coughing helps to clear your lungs. If you have had a surgery with an incision into your abdomen or chest, press gently against your incision with a pillow or a folded blanket when you cough. Please be aware - it may not be booker to cough following some types of surgeries involving the eyes,ears, sinuses and throat. Always follow your doctor's instructions. LEG EXERCISE These exercises help promote good circulation and help to prevent blood clots after surgery. Point your toes to the ceiling and then point them to the wall. Do this slowly about 15-20 times. You may also move your feet in circles. Do the exercise that is most comfortable for you. If you have had surgery involving your shoulder or arm, we recommend you move your fingers. PRACTICING We ask that you begin practicing these exercises before your surgery. After surgery try to do both exercises at least every 2 hours during the day and early evening. SURGICAL SITE INFECTION PREVENTION What is a Surgical Site Infection? Infection can happen to the area of the body where surgery is done. This is called a surgical site infection (SSI). A SSI does not happen very often. Can SSIs be treated? Antibiotics are used to treat SSI. Some patients may need another surgery to treat the infection. The doctor will discuss treatment options with you. What are some of the things that hospitals are doing to prevent SSIs? Soap and water or alcohol hand rub are used before and after caring for each patient. Special soap is used to clean surgery workers hands and arms just before the surgery. Masks, gowns, gloves and hair covers are worn during the surgery to keep the area clean. Hair in the surgery area may be removed with clippers (not razors). A special soap that kills germs is used to clean the skin at the surgery site. Antibiotics may be given before the surgery starts. What can you do to prevent SSIs? Before surgery: You may be asked to shower or bathe with a special soap that kills germs the night before and the day of surgery. Use the soap as you were told. If you smoke, stop or cut down. Ask your doctor about ways to quit. Do not shave near where you will have surgery. Shaving can irritate the skin and make it easier to get and infection. After surgery: Be sure that the doctors and nurses clean their hands before and after touching you. Be sure your family and friends clean their hands before and after visiting you. Do not be afraid to remind them. * Care for your wound at home as told by your doctor or nurse * Call your doctor right away if you have fever, redness, increased pain, or drainage at the surgery site. Further questions? Contact the doctor, nurse or the Infection Prevention and Control department if you have any questions. PATIENT RIGHTS AND RESPONSIBILITIES As a patient at [facility], you have the right to: Receive medical care and be informed of who is taking care of you Be treated with dignity and respect Have a family member/solar sales representative of choice and your physician notified of your admission Receive information and actively participate in decisions about your care and treatment Refuse care, treatment and services Decide who may provide your support and speak for you Access [facility] and spiritual services Participate in ethical issues and questions about your care Receive private and confidential care Have appropriate assessment and management of your pain Know guest visitation restrictions or limitations Have an advance directive Access protective services Consent or refuse to participate in research studies or production or recordings, films or other images Have resolution of your complaints Receive information of hospital charges and payment methods Patient/patient solar sales representative responsibilities are to: Provide information about health status to facilitate care, treatment and services Follow the treatment, plan, keep appointments and speak up when you do not understand the plan Respect the rights of other patients and healthcare personnel Follow organizational rules and regulations that support quality care and a safe environment Fulfill financial obligations as promptly as possible PATIENT RIGHTS AND RESPONSIBILITIES As a patient at [facility], you have the right to: Receive medical care and be informed of who is taking care of you Be treated with dignity and respect Have a family member/solar sales representative of choice and your physician notified of your admission Receive information and actively participate in decisions about your care and treatment Refuse care, treatment and services Decide who may provide your support and speak for you Access [facility] and spiritual services Participate in ethical issues and questions about your care Receive private and confidential care Have appropriate assessment and management of your pain Know guest visitation restrictions or limitations Have an advance directive Access protective services Consent or refuse to participate in research studies or production or recordings, films or other images Have resolution of your complaints Receive information of hospital charges and payment methods Patient/patient solar sales representative responsibilities are to: Provide information about health status to facilitate care, treatment and services Follow the treatment, plan, keep appointments and speak up when you do not understand the plan Respect the rights of other patients and healthcare personnel Follow organizational rules and regulations that support quality care and a safe environment Fulfill financial obligations as promptly as possible Surgical Site Infection Prevention What is a Surgical Site Infection? Infection can happen to the area of the body where surgery is done. This is called a surgical site infection (SSI). A SSI does not happen very often. Can SSIs be treated? Antibiotics are used to treat SSI. Some patients may need another surgery to treat the infection. The doctor will discuss treatment options with you. What are some of the things that hospitals are doing to prevent SSIs? Soap and water or alcohol hand rub are used before and after caring for each patient. Special soap is used to clean surgery workers hands and arms just before the surgery. Masks, gowns, gloves and hair covers are worn during the surgery to keep the area clean. Hair in the surgery area may be removed with clippers (not razors). A special soap that kills germs is used to clean the skin at the surgery site. Antibiotics may be given before the surgery starts. What can you do to prevent SSIs? Before surgery: You may be asked to shower or bathe with a special soap that kills germs the night before and the day of surgery. Use the soap as you were told. If you smoke, stop or cut down. Ask your doctor about ways to quit. Do not shave near where you will have surgery. Shaving can irritate the skin and make it easier to get and infection. After surgery: Be sure that the doctors and nurses clean their hands before and after touching you. Be sure your family and friends clean their hands before and after visiting you. Do not be afraid to remind them. * Care for your wound at home as told by your doctor or nurse * Call your doctor right away if you have fever, redness, increased pain, or drainage at the surgery site. Further questions? Contact the doctor, nurse or the Infection Prevention and Control department if you have any questions. [facility]09-27-2024 Miscellaneous Notes* Pre-Procedure Instructions - Cori Wang RN - 07/12/2024 10:30 AM EDT Your surgery/procedure is scheduled at [facility] on 07/15/2024 at 1230 Arrival Time 1030 [facility] Address: [address] [place] [address]. [place] [id number] Park in [address] Parking lot located on [facility]. Report to the Entrance B. Check in at the information desk the surgery. The waiting room located on the second floor. If you have any questions prior to surgery, please call Pre-Admission Clinic at [phone] between 7:30 am and 4:30 pm Monday through Monday. If you have questions the morning of surgery, please call the Pre-op Department at [phone]. Notify your SURGEON if you develop any illness such as a cold, cough, fever, sore throat, vomiting or are hospitalized between now and your surgery. Medication Instructions (Do not stop your medications without consulting the prescribing physician). Take the following medications the morning of surgery with a sip of water: Prednisone, Augmentin Diabetic or Weight loss medications: HOLD Na LAST DOSE Na Take inhalers as prescribed the morning of surgery. Due to the risk associated with these medications. If these medications are not held per instruction below, your surgery is at an increased risk for cancellation. SGLT2 Medications- Hold 3 days prior to surgery: Jardiance, Empagliflozin, Farxiga, Dapagliflozin, Invokana, Canagliflozin GLP-1 Medications (Injection or Pill)- If taken daily hold day of surgery. If taken weekly, hold 1 week prior to surgery: Adlyxin, Byetta, Bydureon, Ozempic, Rybelsus,Trulicity, Victoza, Wegovy, Lixisenatide, Exenatide, Semaglutide, Dulaglutide, Liraglutide GIP/GLP-1(Injection or Pill)- If taken daily hold day of surgery. If taken weekly, hold 1 week prior to surgery: Mounjaro . Blood thinners: Please contact your prescribing physician regarding a stop/hold date for these medications. Medications such as Coumadin, Heparin, Aspirin, Plavix, Eliquis, Pradaxa Diabetics: If you take insulin, contact your prescribing doctor for instructions on how to manage this the night before and the morning of surgery. Non-steriodal Anti-Inflammatory Drugs (NSAIDS)- Hold 3 days prior to surgery unless otherwise directed by your surgeon. Vitamins/Herbal Products: You may continue to take your prescribed vitamins such as potassium, iron, vitamin B, vitamin C, or multivitamin unless specifically instructed by your surgeon to hold. STOPtaking all herbal products/teas one week prior to your surgery. Marijuana: Stop marijuana 72 hours prior to surgery, stop CBD oil 48 hours prior to surgery. If you have been given bowel prep instructions by your surgeon, please call the surgeon's office with any questions about these instructions. What do I do the day of Surgery? Follow bowel prep If applicable, shower again with CHG soap the morning of your surgery. If you received a green plastic bracelet, bring it with you the day of surgery and your nurse will put it on you. In order to help prevent infection post-operatively, you may be asked to use a CHG mouthwash when you arrive to the Pre-op area. Your nurse will provide instruction the morning of. What do I need to do to prepare for surgery? If you will be going home the same day as your surgery, arrange for an adult over [address] Riding in a bus or taxi by yourself is not permitted. You should not smoke or drink alcohol 24 hours before your surgery. Alcohol thins the blood and may cause bleeding problems during surgery. Smoking increases the risk of breathing problems after surgery. Do not use lotions, creams, powders, perfume, make up, cologne or after-shaves day of surgery. Remove ALL jewelry including wedding rings, body piercings (including dermal piercings ,hair extensions that contain metal, nail indonesian, make-up, and contact lens. You may brush your teeth the morning of surgery, but do not swallow the water. Wear your dentures and partial plates to the hospital (no adhesive). Shower the night the before. If applicable, use the CHG (chlorhexidine gluconate) soap or wipes What should I bring to the hospital? If you received a green plastic bracelet, bring it with you the day of surgery and your nurse will put it on you. Eyeglass or contact lens case If you will be spending the night, please bring personal care items and leave them in the car untilyou are taken to your room after surgery. Leave ALL valuables at home. If any of these instructions conflict with those you received from the surgeon, please seek clarification from your surgeon's office. DEEP BREATHING EXERCISES This exercise helps promote good air exchange and helps to prevent pneumonia after surgery. Breathe in slowly and deeply through the nose. Hold your breath for a few seconds and then exhale slowly through the mouth. Repeat this three times and then cough.Coughing helps to clear your lungs. If you have had a surgery with an incision into your abdomen or chest, press gently against your incision with a pillow or a folded blanket when you cough. Please be aware - it may not be booker to cough following some types of surgeries involving the eyes,ears, sinuses and throat. Always follow your doctor's instructions. LEG EXERCISE These exercises help promote good circulation and help to prevent blood clots after surgery. Point your toes to the ceiling and then point them to the wall. Do this slowly about 15-20 times. You may also move your feet in circles. Do the exercise that is most comfortable for you. If you have had surgery involving your shoulder or arm, we recommend you move your fingers. PRACTICING We ask that you begin practicing these exercises before your surgery. After surgery try to do both exercises at least every 2 hours during the day and early evening. SURGICAL SITE INFECTION PREVENTION What is a Surgical Site Infection? Infection can happen to the area of the body where surgery is done. This is called a surgical site infection (SSI). A SSI does not happen very often. Can SSIs be treated? Antibiotics are used to treat SSI. Some patients may need another surgery to treat the infection. The doctor will discuss treatment options with you. What are some of the things that hospitals are doing to prevent SSIs? Soap and water or alcohol hand rub are used before and after caring for each patient. Special soap is used to clean surgery workers hands and arms just before the surgery. Masks, gowns, gloves and hair covers are worn during the surgery to keep the area clean. Hair in the surgery area may be removed with clippers (not razors). A special soap that kills germs is used to clean the skin at the surgery site. Antibiotics may be given before the surgery starts. What can you do to prevent SSIs? Before surgery: You may be asked to shower or bathe with a special soap that kills germs the night before and the day of surgery. Use the soap as you were told. If you smoke, stop or cut down. Ask your doctor about ways to quit. Do not shave near where you will have surgery. Shaving can irritate the skin and make it easier to get and infection. After surgery: Be sure that the doctors and nurses clean their hands before and after touching you. Be sure your family and friends clean their hands before and after visiting you. Do not be afraid to remind them. * Care for your wound at home as told by your doctor or nurse * Call your doctor right away if you have fever, redness, increased pain, or drainage at the surgery site. Further questions? Contact the doctor, nurse or the Infection Prevention and Control department if you have any questions. PATIENT RIGHTS AND RESPONSIBILITIES As a patient at [facility], you have the right to: Receive medical care and be informed of who is taking care of you Be treated with dignity and respect Have a family member/solar sales representative of choice and your physician notified of your admission Receive information and actively participate in decisions about your care and treatment Refuse care, treatment and services Decide who may provide your support and speak for you Access [facility] and spiritual services Participate in ethical issues and questions about your care Receive private and confidential care Have appropriate assessment and management of your pain Know guest visitation restrictions or limitations Have an advance directive Access protective services Consent or refuse to participate in research studies or production or recordings, films or other images Have resolution of your complaints Receive information of hospital charges and payment methods Patient/patient solar sales representative responsibilities are to: Provide information about health status to facilitate care, treatment and services Follow the treatment, plan, keep appointments and speak up when you do not understand the plan Respect the rights of other patients and healthcare personnel Follow organizational rules and regulations that support quality care and a safe environment Fulfill financial obligations as promptly as possible PATIENT RIGHTS AND RESPONSIBILITIES As a patient at [facility], you have the right to: Receive medical care and be informed of who is taking care of you Be treated with dignity and respect Have a family member/solar sales representative of choice and your physician notified of your admission Receive information and actively participate in decisions about your care and treatment Refuse care, treatment and services Decide who may provide your support and speak for you Access [facility] and spiritual services Participate in ethical issues and questions about your care Receive private and confidential care Have appropriate assessment and management of your pain Know guest visitation restrictions or limitations Have an advance directive Access protective services Consent or refuse to participate in research studies or production or recordings, films or other images Have resolution of your complaints Receive information of hospital charges and payment methods Patient/patient solar sales representative responsibilities are to: Provide information about health status to facilitate care, treatment and services Follow the treatment, plan, keep appointments and speak up when you do not understand the plan Respect the rights of other patients and healthcare personnel Follow organizational rules and regulations that support quality care and a safe environment Fulfill financial obligations as promptly as possible Surgical Site Infection Prevention What is a Surgical Site Infection? Infection can happen to the area of the body where surgery is done. This is called a surgical site infection (SSI). A SSI does not happen very often. Can SSIs be treated? Antibiotics are used to treat SSI. Some patients may need another surgery to treat the infection. The doctor will discuss treatment options with you. What are some of the things that hospitals are doing to prevent SSIs? Soap and water or alcohol hand rub are used before and after caring for each patient. Special soap is used to clean surgery workers hands and arms just before the surgery. Masks, gowns, gloves and hair covers are worn during the surgery to keep the area clean. Hair in the surgery area may be removed with clippers (not razors). A special soap that kills germs is used to clean the skin at the surgery site. Antibiotics may be given before the surgery starts. What can you do to prevent SSIs? Before surgery: You may be asked to shower or bathe with a special soap that kills germs the night before and the day of surgery. Use the soap as you were told. If you smoke, stop or cut down. Ask your doctor about ways to quit. Do not shave near where you will have surgery. Shaving can irritate the skin and make it easier to get and infection. After surgery: Be sure that the doctors and nurses clean their hands before and after touching you. Be sure your family and friends clean their hands before and after visiting you. Do not be afraid to remind them. * Care for your wound at home as told by your doctor or nurse * Call your doctor right away if you have fever, redness, increased pain, or drainage at the surgery site. Further questions? Contact the doctor, nurse or the Infection Prevention and Control department if you have any questions. documented in this encounterOhioHealth Doctors HospitalHubHuman [id number] Miscellaneous Notes* Telephone Encounter - Jackeline Mahmood - 07/11/2024 10:48 AM EDT Check out comments: Egd/colon asa 1 mac at any location SHUBHAM Ok to use flower on Monday Stool test * Telephone Encounter - Roslyn Gong - 07/11/2024 10:48 AM EDT Per NH and CS: okay to add to [facility] schedule 07/15. NH rounder day and BA float day. 12:30 PM per NH. Spoke with patient. EGD/Colon scheduled for 07/15 at [facility] at 12:30 with 10:[address] Mirza already ordered Suprep/dulcolax. Prep instructions emailed to patient at [email or web address] documented in this encounterL[facility] Telephone encounter Note* Telephone Encounter - Jackeline Mahmood - 07/11/2024 10:48 AM EDT Check out comments: Egd/colon asa 1 mac at any location SHUBHAM Ok to use flower on Monday Stool test [facility] Leartieste [id number] Telephone encounter Note* Telephone Encounter - Roslyn Gong - 07/11/2024 10:48 AM EDT Per NH and CS: okay to add to [facility] schedule 07/15. NH round day and BA at day. 12:30 PM per NH. Spoke with patient. EGD/Colon scheduled for 07/15 at [facility] at 12:30 with 10:[address] Mirza already ordered Suprep/dulcolax. Prep instructions emailed to patient at [email or web address] [facility] AppMyDay [id number] History of Present illness Narrative* Bret Mirza MD - 07/11/2024 9:30 AM EDT [facility] New Patient Visit - GI Consult Subjective: Patient ID: William Laguna Friend is a 29 y.o. male. HPI William Laguna Friend is a 29 y.o. male with past medical history of tachycardia and cholecystectomy in 2016 presenting for a consultation of abdominal pain and vomiting. He presented to the ED on 07/10/2024 reporting abdominal pain in the upper mid abdomen as well as vomiting around 10 am. Patient reports a history of similar symptoms occurring 3-4 times in the past as well stating that they resolved on their own. Testing was ordered and patient was given Bentyl, Zofran, and IV fluid. After testing was completed, it was advised patient was likely having an IBD flare, he was referred to GI and prescribed Augmentin 1 tablet every 12 hours for 7 days and Prednisone 40 mg every morning for 5 days. Labs 07/10/2024: Notable for: WBC 12.6, glucose 102, total protein 8.1, neutrophils 11.0, lymphocytes 0.8. CT abdomen and pelvis 07/10/2024: 1. Multifocal infiltrate change involving the ileocecal valve anddistal ileum, findings worrisome for possible underlying inflammatory bowel disease, such as Crohn's. Infectious ileitis is also possible. Correlate clinically, follow up may be appropriate. Today, the patient reports that he went to the ER yesterday due to lower abdominal pain and vomiting. He states that he has been experiencing diarrhea for about 4-5 months, occurring 2-3 times daily.Yesterday, he states that he had no bowel movements and that he was primarily experiencing vomiting. Patient admits to occasional blood in the stool. Patient reports regular bowel movements occurring about twice daily. He states it was usually well formed but occasionally was watery. He admits to have previous seen blood in his stool. Patient admits to some weight loss since this has started. Denies a past history of diarrhea, nausea, or vomiting. Patient denies any joint pain or swelling. Family history of Crohn's disease in his second cousin. Previous GI Workup: CT Chest Abdomen Pelvis with contrast 06/01/2016: Impression: 1. Findings compatible parenchymal contusions scattered primarily in left upper lobe and less pronounced in left lower and right middle lobes, respectively. 2. Fracture anterosuperior sternum. Compression burst fracture T4 vertebral body. 3. No other acute findings. Past Medical History: Diagnosis Date Tachycardia Past Surgical History: Procedure Laterality Date BACK SURGERY CHOLECYSTECTOMY KNEE ARTHROSCOPY Current Medications: Current Outpatient Medications: amoxicillin-pot clavulanate (AUGMENTIN) 875-125 mg per tablet, Take 1 tablet by mouth every 12 (twelve) hours for 7 days., Disp: 14 tablet, Rfl: 0 cetirizine (ZyrTEC) 10 mg tablet, Take 1 tablet (10 mg total) by mouth as needed., Disp: , Rfl: fluticasone propionate (FLONASE) 50 mcg/actuation nasal spray, Twice daily, Disp: , Rfl: ibuprofen (ADVIL,MOTRIN) 200 mg tablet, Every 8 hours, Disp: , Rfl: ondansetron ODT (ZOFRAN-ODT) 4 mg disintegrating tablet, Dissolve 1 tablet (4 mg total) on tongue every 8 (eight) hours as needed for nausea for up to 10 doses., Disp: 10 tablet, Rfl: 0 PEPCID 20 mg tablet, Take 1 tablet (20 mg total) by mouth., Disp: , Rfl: predniSONE (DELTASONE) 10 mg tablet, Take 4 tablets (40 mg total) by mouth in the morning for 5 days., Disp: 20 tablet, Rfl: 0 bisacodyL (DULCOLAX) 5 mg EC tablet, Take 2 tablets (10 mg total) by mouth once for 1 dose. Take asinstructed, Disp: 2 tablet, Rfl: 0 sodium,potassium,mag sulfates (SUPREP BOWEL PREP KIT) 17.5-3.13-1.6 gram recon soln, Take 180 mL bymouth in the morning and 180 mL before bedtime. Take as instructed., Disp: 354 mL, Rfl: 0 No current facility-administered medications for this visit. I reviewed and reconciled this patient's medication list today. ALLERGIES: Patient has no known allergies. SOCIAL HISTORY: Social History Tobacco Use Smoking status: Every Day Types: Cigarettes Smokeless tobacco: Former Substance Use Topics Alcohol use: Not Currently Drug use: No FAMILY HISTORY: History reviewed. No pertinent family history. Review of Systems Constitutional: Negative for appetite change and fatigue. Respiratory: Negative for chest tightness and shortness of breath. Cardiovascular: Negative for chest pain and palpitations. Gastrointestinal: Positive for abdominal pain. Objective: Physical Exam Vitals reviewed. Constitutional: Appearance: He is well-developed. HENT: Head: Normocephalic and atraumatic. Pulmonary: Effort: Pulmonary effort is normal. Breath sounds: Normal breath sounds. Abdominal: General: Bowel sounds are normal. There is no distension. Palpations: Abdomen is soft. Tenderness: There is abdominal tenderness. Neurological: Mental Status: He is alert and oriented to person, place, and time. Psychiatric: Behavior: Behavior normal. DATA: CBC: Lab Results Component Value Date WBC 12.6 (H) 07/10/2024 HGB 14.4 07/10/2024 HCT 43.4 07/10/2024 MCV 89 07/10/2024 RDW 13.4 07/10/2024 PLT 330 07/10/2024 CMP: Lab Results Component Value Date K 4.0 07/10/2024 CL 104 07/10/2024 CO2 25 07/10/2024 BUN 14 07/10/2024 GLU 102 (H) 07/10/2024 Assessment/Plan: William Laguna Friend is a 29 y.o. male who presents with ileitis, family history of Crohn's disease.Patient is a poor historian. Unclear if he had chronic GI symptoms or this is acute/subacute in nature. Patient was started on Augmentin and Prednisone by the ED on 07/10/2024 due to likelihood of Crohn's disease however no GI panel/C diff or calprotectin ordered. It was not even admitted to the hospital at that point. Ordered GI panel, C-diff, and Calprotectin to be completed as soon as possible to evaluate cause ofabdominal pain and rule out infection vs Crohn's. Advised patient that we may switch the antibioticthey are currently taking depending on results if there is an infection. Ordered colonoscopy and EGD to be done urgently if GI panel/C diff are negative. I have discussed the risks, benefits, and alternatives to colonoscopy with the patient, including but not limited to the risks of bleeding, infection, missing colon polyps, pain, as well as the risks of anesthesia and perforation all leading to prolonged hospitalization, surgical intervention. All questions were answered to the patient s satisfaction. The patient elected to proceed with colonoscopy with intervention as indicated. Advised patient that if pain /vomiting or diarrhea worsens, he must go to the emergency room immediately as bowel obstruction can occur in a scenario like this. Will follow up in 3 months, or sooner if needed. Please note that portions of this note were generated using voice recognition M*Modal dictation software. Although every effort was made to ensure the accuracy of this automated date puller, some errors in date puller may have occurred. Scribed for and in the presence of Bret Mirza MD by Rhea Lozano (scribe). Rhea Lozano 07/11/2024 7:38 AM I, Bret Mirza MD personally performed the services described in the documentation, as scribed byRhea Lozano (scribalice) in my presence, and it is both accurate and complete. [place] [address] PH: [phone] documented in this encounterLima City Hospital09-16-2024 NotePatient Education Nutrition BMI for Adults Body mass index (BMI) is a number found using a person's weight and height. BMI can help tell how much of a person's weight is made up of fat. BMI does not measure body fat directly. It is used instead of tests that directly measure body fat, which can be difficult and expensive. What are BMI measurements used for? BMI is useful to: ? Find out if your weight puts you at higher risk for medical problems. ? Help recommend changes, such as in diet and exercise. This can help you reach a healthy weight. BMI screening can be done again to see if these changes are working. How is BMI calculated? Your height and weight are measured. The BMI is found from those numbers. This can be done with U.S. or metric measurements. Note that charts and online BMI calculators are available to help you findyour BMI quickly and easily without doing these calculations. To calculate your BMI in U.S. measurements: 1. Measure your weight in pounds (lb). 2. Multiply the number of pounds by 703. ? So, for an adult who weighs 150 lb, multiply that number by 703: 150 x 703, which equals 105,450. 3. Measure your height in inches. Then multiply that number by itself to get a measurement called inches squared. ? So, for an adult who is 70 inches tall, the inches squared measurement is 70 inches x 70 inches, which equals 4,900 inches squared. 4. Divide the total from step 2 (number of lb x 703) by the total from step 3 (inches squared): 105,450 ? 4,900 = 21.5. This is your BMI. To calculate your BMI in metric measurements: 1. Measure your weight in kilograms (kg). ? For this example, the weight is 70 kg. 2. Measure your height in meters (m). Then multiply that number by itself to get a measurement called meters squared. ? So, for an adult who is 1.75 m tall, the meters squared measurement is 1.75 m x 1.75 m, which equals 3.1 meters squared. 3. Divide the number of kilograms (your weight) by the meters squared number. In this example: 70 ?3.1 = 22.6. This is your BMI. What do the results mean? BMI charts are used to see if you are underweight, normal weight, overweight, or obese. The following guidelines will be used: ? Underweight: BMI less than 18.5. ? Normal weight: BMI between 18.5 and 24.9. ? Overweight: BMI between 25 and 29.9. ? Obese: BMI of 30 or above. BMI is a tool and cannot diagnose a condition. Talk with your health care provider about what your BMI means for you. Keep these notes in mind: ? Weight includes fat and muscle. Someone with a muscular build, such as an athlete, may have a BMIthat is higher than 24.9. In cases like these, BMI is not a correct measure of body fat. ? If you have a BMI of 25 or higher, your provider may need to do more testing to find out if excess body fat is the cause. ? BMI is measured the same way for males and females. Females usually have more body fat than malesof the same height and weight. Where to find more information For more information about BMI, including tools to quickly find your BMI, go to: ? Centers for Disease Control and Prevention: cdc.gov ? [place] Heart Association: heart.org ? National Heart, Lung, and Blood [place]: nhlbi.nih.gov This information is not intended to replace advice given to you by your health care provider. Make sure you discuss any questions you have with your health care provider. Document Revised: 06/22/2023 Document Reviewed: 06/15/2023 [employer] Patient Education ? 2023 [employer] EnergyOlenaAden[facility]18[facility] Evaluation note* Diagnosis Onset Date Resolution Status Admit Date Acute effusion of both middle ears noneactive June 18 4:29pm Possible exposure to STI acute August 26, 2024 4:01pm High risk sexual behavior noneactive August 26, 2024 4:01pm [facility] Work Phone: 1(876) 947-287808-23-2024 History of Present illness Narrative* NEHAL Nielson - 08/16/2024 12:30 PM EDT Images from the original note were not included. [facility] [address] [place] [id number] Patient: William Hernandez Date of : 1995 Encounter Date: 08/16/2024 Assessment and Plan: Assessment: S/p laparoscopic segmental right colectomy for Crohn's on 07/18/24 Mild incision site erythema, resolved after doxycline Significant diffuse abd pain Intermittent nausea Weight loss Plan: KUB today Work note provided Finish antibiotics May resume regular diet see Dr Mirza on 08/22/24 Tylenol 1000mg q6h prn pain Start doxycyline for wound erythema Continue lifting restrictions until 6 weeks post operative status Weight check at r/v Follow-up: 2 weeks History of Present Illness: The patient is 29 y.o. male and presents for postoperative follow-up s/p laparoscopic segmental right colectomy for Crohn's. He's off work and needs a work note. He has diffuse abd pain. Taking ibuprofen and tylenol for it without relief. Went to ED 08/10/24 and had CTAP that was neg for acute process. Mild anemia, but no leukocytosis. He has ongoing anorexia and intermittent nausea. He has lost quite a bit of weight, but has stabilized since surgery. Moving his bowels daily, they are soft no blood. CTAP 08/10/24 Findings: Postoperative changes in the right lower quadrant now seen and are new since previous examination. No complicating processes are identified. There is no evidence of any hepatic, splenic, adrenal, renal, or pancreatic abnormalities. Gallbladder has been surgically removed. No abdominal or retroperitoneal masses or adenopathy are seen. No pelvic masses, adenopathy, or fluid collections are identified. Limited images of the lung bases are unremarkable. Impression: Postoperative changes in the right lower quadrant, new since the previous examination of 07/15/2024. Otherwise normal CT abdomen and pelvis. Post-op Note NAME: William Hernandez : 1995 PROCEDURE DATE: 07/18/2024 Surgeon: Surgeons and Role: * Spencer Gates MD - Primary Assistants: Surgery resident Staff: Inspector Welded Parts Primary: Jane Park RN Inspector Welded Parts Relief: Doreen Carey RN Scrub Relief: ST Katy Scrub Person: ST Manny Yoon Assistant Resident: Sofía Barr MD Pre-op Diagnosis: 1. Crohn's stricture affecting the terminal ileum, ileocecal region and segment of the ascending colon 2. Partial small-bowel obstruction 3. Recent use of high-dose steroids Procedure: 1. Laparoscopic segmental colectomy-segmental right colectomy CPT 03429 ( Wound Class: Clean Contaminated - Incision Closure: Deep and Superficial Layers Post-op Diagnosis: 1. Crohn's stricture affecting the terminal ileum, ileocecal region and segment of the ascending colon 2. Partial small-bowel obstruction 3. Recent use of high-dose steroids Anesthesia Type: General Findings: Inflammatory changes affecting the terminal ileum, ileocecal region, and segment of ascending colon with inflammatory changes, phlegmon formation and partial small-bowel obstruction al Pathologic Diagnosis Right colectomy: Severely active Crohn's disease, involving terminal ileum and ileocecal valve with stricture formation. Inflammatory pseudopolyps. No granuloma, dysplasia or viral inclusions identified. No malignancy identified. Resection margins, free of Crohn's disease Appendix with fibrous obliteration of its lumen. Nine benign regional lymph nodes. Weight 08/16/24 0954 63.5 kg (140 lb) 08/10/24 2205 63.5 kg (140 lb) 07/22/24 0330 64 kg (141 lb 1.5 oz) 07/21/24 0454 66.9 kg (147 lb 7.8 oz) 07/19/24 2340 66 kg (145 lb 8.1 oz) 07/18/24 1211 65.8 kg (145 lb) 07/18/24 0400 65.9 kg (145 lb 4.5 oz) 07/17/24 0400 67.6 kg (149 lb 0.5 oz) 07/15/24 1520 70.3 kg (155 lb) 07/13/24 2225 70.3 kg (155 lb) 07/12/24 1203 70.3 kg (155 lb) Physical Exam: Physical Exam Constitutional: General: He is not in acute distress. Cardiovascular: Rate and Rhythm: Normal rate. Pulmonary: Effort: Pulmonary effort is normal. Abdominal: General: Bowel sounds are normal. Palpations: Abdomen is soft. Tenderness: There is no abdominal tenderness. Neurological: General: No focal deficit present. Mental Status: He is alert. Lola Wright PA-C [facility] Colorectal Surgery [facility] & [address] / [address] [facility] [address] Office: [phone] NEHAL NIELSON PA 08/16/24 1026 documented in this encounterLima City Hospital04-26-2024 Hospital Discharge instructions Patient Education 02/09/2024 12:56:19 Testicular Self-Exam [...] testicles retract and pull them up higher orinto the abdomen. A normal testicle is egg-shaped [...] provider. Document Revised: 09/07/2020 Document Reviewed: 09/07/2020 [employer] Patient Education 2022 [employer]. Follow Up Care 01/23/2024 11:31:03 With:KARO VEGA PA-C, URL Address: [address] [place] [address] [phone] When: Unknown Comments:f/u pending imaging and lab results [facility] Evaluation + Plan note Future Appointments Appointment Date:02/23/2024 01:00:00 PM Scheduled Provider: Location:[facility] Appointment Type:US Prostate/Scrotum (FT) Future Scheduled Tests Radiology* US Scrotum (Contents) 02/23/24 [facility] Evaluation + Plan note Future Appointments Appointment Date:02/28/2024 03:20:00 PM Scheduled Provider:Tahmina AGUIAR MD Location:[facility] Appointment Type:GS New 30 Appointment Date:03/12/2024 08:30:00 AM Scheduled Provider:Casey Carpio MD Location[facility] Future Appointments Appointment Date:07/30/2024 01:15:00 PM Scheduled Provider:Casey Carpio MD Location:[facility] Appointment Type: Open Appointment Date:10/07/2024 08:15:00 AM Scheduled Provider:Casey Carpio MD Location:[facility] Appointment Type: Open Future Scheduled Tests Radiology* Echo Transthoracic Complete 07/08/24 [facility] Evaluation + Plan note Future Appointments Appointment Date:07/30/2024 01:15:00 PM Scheduled Provider:Casey Carpio MD Location:[facility] Appointment Type: Open Appointment Date:10/07/2024 08:15:00 AM Scheduled Provider:Casey Carpio MD Location:[facility] Appointment Type:[facility] Evaluation + Plan note Future Appointments Appointment Date:02/24/2025 03:40:00 PM Scheduled Provider:Casey Carpio MD Location:[facility] Appointment Type: Open [facility] evaluation noteNo assessment information available [facility] Work Phone: evaluation note* Diagnosis Onset Date Resolution Status Abscess of right groin nonea ctive [facility] Work Phone: evaluamuqd note* Diagnosis Left groin mass- Primary [facility] Diagnosis Chest pain, unspecified type- Primary Crohn's disease with complication, unspecified gastrointestinal tract location (CMS-HCC) Palpitation Palpitations documented in this encounter [facility] Diagnosis Left groin mass- Primary Right groin mass [facility] Diagnosis Bilateral groin pain- Primary 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* Diagnosis Postop check- Primary Follow-up examination, following unspecified surgery documented in this encounter [facility]* Diagnosis Ileitis- Primary Other and unspecified noninfectious gastroenteritis and colitis [facility] Diagnosis Diffuse abdominal pain- Primary [facility] Diagnosis Crohn's disease of colon with intestinal obstruction (CMS-HCC)- Primary [facility] Diagnosis Palpitation- Primary Palpitations Chest pain, unspecified type Crohn's disease with complication, unspecified gastrointestinal tract location (CMS-HCC) [facility] Diagnosis Ileocolitis- Primary Regional enteritis of small intestine [facility]* Diagnosis Crohn's colitis, with intestinal obstruction (CMS-HCC)- Primary [facility]* Diagnosis Postop check- Primary Follow-up examination, following unspecified surgery [facility] Diagnosis Crohn's colitis, with intestinal obstruction (CMS-HCC)- Primary [facility] Diagnosis Crohn's disease of both small and large intestine without complication (CMS-HCC)- Primary [facility]* Diagnosis Abdominal wall mass of right lower quadrant- Primary Abdominal wall mass of left lower quadrant [facility] Diagnosis Crohn's colitis, with intestinal obstruction (CMS-HCC)- Primary documented in this encounter [facility] Narrative No data available for this section [facility] Discharge instructions No data available for this section [facility] Additional Instructions No driving if taking narcotic pain medicationFirCleveland Clinic [facility] Work Phone: Hospital Discharge instructions Additional Instructions As we discussed, there is no obvious acute Crohn's disease or other problem apparent tonight. You are having symptoms that could be related to your Crohn's, though, so you need to call your GI doctor tomorrow. If you are in fact having issues with your Crohn's, then you need to be on medication. Whether or not this is steroids will be up to your GI doctor. I will prescribe you 2 days of pain medicine. If you have worsening symptoms, then you need to go to [place] so you can see your GI doctor.[facility] Work Phone: InstructionsNot on filedocumented in this encounter [facility]ructionsNot on filedocumented in this encounter [facility] System[facility]ructionsNot on filedocumented in this encounter [facility] System[facility]ructionsNot on filedocumented in this encounter [facility] System[facility]ructionsNot on filedocumented in this encounter [facility]ructionsNot on filedocumented in this encounter [facility]ructionsNot on filedocumented in this encounter [facility]ructionsNot on filedocumented in this encounter [facility]ructionsNot on filedocumented in this encounter [facility] System[facility]ructionsNot on filedocumented in this encounter [facility] SystemInstructionsNot on filedocumented in this encounter [facility]ructions[facility] filedocumented in this encounter [facility]ructionsNot on filedocumented in this encounter [facility]ructionsNot on filedocumented in this encounter [facility]ructionsNot on filedocumented in this encounter [facility]ructionsNot on filedocumented in this encounter [facility]InstructionsNot on filedocumented in this encounter [facility] SystemProgress note No data available for this section [facility] [place] Summary Purpose Family History Relationship Condition Age at Onset Recorded Date/T alicia Not Specified Hypertension Unknown Relationship Condition Age at Onset Recorded Date/T alicia mother Hypertension Unknown Relationship Condition Age at Onset Recorded Date/T alicia mother Hypertension Unknown Type 2 diabetes mellitus Unknown father Hypertension Unknown Advance Directives Date Activated Date Inactivated Comments 03/21/2025 12:03 PM 03/24/2025 7:13 PM Date Activated Date Inactivated Comments 03/21/2025 1:24 AM 03/21/2025 11:52 AM Date Activated Date Inactivated Comments 11/05/2024 6:40 PM 11/08/2024 3:40 PM Date Activated Date Inactivated Comments 10/08/2024 5:49 PM 10/09/2024 2:09 PM Date Activated Date Inactivated Comments 07/15/2024 4:01 PM 07/22/2024 4:05 PM Advance Directive Response Recorded Date/ Time Advance Directives No January 23, 12:15pm Advance Directive Response Recorded Date/ Time Advance Directives No February 22 4:29pm Advance Directive Response Recorded Date/ Time Advance Directives No February 22 3:29pm Date Activated Date Inactivated Comments 10/08/2024 5:49 PM 10/09/2024 2:09 PM Date Activated Date Inactivated Comments 07/15/2024 4:01 PM 07/22/2024 4:05 PM Date Activated Date Inactivated Comments 07/15/2024 4:01 PM Date Activated Date Inactivated Comments 07/15/2024 4:01 PM 07/22/2024 4:05 PM Date Activated Date Inactivated Comments 07/15/2024 4:01 PM 07/22/2024 4:05 PM Date Activated Date Inactivated Comments 11/05/2024 6:40 PM 11/08/2024 3:40 PM Date Activated Date Inactivated Comments 10/08/2024 5:49 PM 10/09/2024 2:09 PM Date Activated Date Inactivated Comments 07/15/2024 4:01 PM 07/22/2024 4:05 PM Date Activated Date Inactivated Comments 11/05/2024 6:40 PM 11/08/2024 3:40 PM Date Activated Date Inactivated Comments 10/08/2024 5:49 PM 10/09/2024 2:09 PM Date Activated Date Inactivated Comments 07/15/2024 4:01 PM 07/22/2024 4:05 PM Date Activated Date Inactivated Comments 03/21/2025 12:03 PM Date Activated Date Inactivated Comments 03/21/2025 1:24 AM 03/21/2025 11:52 AM Date Activated Date Inactivated Comments 11/05/2024 6:40 PM 11/08/2024 3:40 PM Date Activated Date Inactivated Comments 10/08/2024 5:49 PM 10/09/2024 2:09 PM Date Activated Date Inactivated Comments 07/15/2024 4:01 PM 07/22/2024 4:05 PM Date Activated Date Inactivated Comments 03/21/2025 12:03 PM 03/24/2025 7:13 PM Chief Complaint and Reason for Visit Chief Complaint Cyst Chief Complaint Cyst enlarged inguinal lymph node Reason for Visit Abscess of right sergio in Chief Complaint enlarged inguinal ly mph node Left Hip Mass Chief Complaint enlarged inguinal ly mph node Left Hip Mass Left Hip Mass Chief Complaint Left Hip Mass Left Hip Mass Ear pain Chief Complaint Admit Date Ear pain June 18, 2024 4:29pm STD check(went outside to car) August 26, 2024 4:01pm Reason for Visit Admit Date Acute effusion of both middle ears Septe mber 2023 4:29pm Possible exposure to STI August 26, 2024 4:01pm High risk sexual behavior August 26, 2024 4:01pm Chief Complaint Admit Date Ear pain June 18, 2024 4:29pm STD check(went outside to car) August 26, 2024 4:01pm High risk sexual behavior August 26, 2024 4:40pm Chief Complaint Admit Date STD check(went outside to car) August 26, 2024 4:01pm Z72.51 August 26, 2024 4:40pm laceration on left hand September 16 2:50pm Bilateral Groin Masses October 31 3:41pm Reason for Visit Admit Date Possible exposure to STI August 26, 2024 4:01pm High risk sexual behavior August 26, 2024 4:01pm Laceration of left palm September 16 2:50pm Chief Complaint Admit Date STD check(went outside to car) August 26, 2024 4:01pm Z72.51 August 26, 2024 4:40pm laceration on left hand September 16 2:50pm Bilateral Groin Masses October 31 3:41pm Bilateral Groin Masses November 14 9:08am Chief Complaint Admit Date laceration on left hand September 16 2:50pm Bilateral Groin Masses October 31 3:41pm Bilateral Groin Masses November 14 9:08am nausea December 02, 2024 6:39pm Reason for Visit Admit Date Laceration of left palm September 16 2:50pm Chief Complaint Admit Date Abdominal Masses March 06, 2025 12:13 pm Reason for Referral Specialty Diagnoses / Procedures Referred By Contac t Referred To Contact Diagnoses Ileitis Procedures EGD Bret Mirza MD [address] [place] [address], [address] [place] [id number] Referral ID Status Reason Start Date Expiration Date V isits Requested Visits Authorized [id number] Pending Review 07/11/2024 07/11/2025 1 1 Specialty Diagnoses / Procedures Referred By Contac t Referred To Contact Diagnoses Ileitis [place] [address] [place] [address], [address] [place] [id number] Referral ID Status Reason Start Date Expiration Date V isits Requested Visits Authorized [id number] Pending Review 07/11/2024 07/11/2025 1 1 Additional Source Comments (unrecognized sect ion and content) No Status Records FoundNo Status Records FoundNo Status Records FoundNo Status Records FoundNo Status Records FoundNo Status Records FoundNo Status Records FoundNo Status Records FoundNo Status Records FoundNo Status Records Found INFORMATION SOURCE (unrecogn ized section and content) DATE CREATED AUTHOR 04/03/2018 [facility] DATE CREATED AUTHOR AUTHOR'S ORGANIZ ATION 04/05/2018 [facility] DATE CREATED AUTHOR AUTHOR'S ORGANIZ ATION 11/02/2022 [facility] DATE CREATED AUTHOR AUTHOR'S ORGANIZ ATION 08/26/2023 [facility] DATE CREATED AUTHOR AUTHOR'S ORGANIZ ATION 03/06/2025 [facility] EPIC DATE CREATED AUTHOR AUTHOR'S ORGANIZ ATION 03/22/2025 [facility] DATE CREATED AUTHOR AUTHOR'S ORGANIZ ATION 03/22/2025 [facility] DATE CREATED AUTHOR AUTHOR'S ORGANIZ ATION 03/24/2025 [facility] DATE CREATED AUTHOR AUTHOR'S ORGANIZ ATION 03/25/2025 [facility] DATE CREATED AUTHOR AUTHOR'S ORGANIZ ATION 03/26/2025 [place] [facility] (unrecognized sec tion and content) [...] Status: Active Member Role Status Dates Casey Carpio MD Primary Care Provider Active Team Status: Inactive Member Role Status Dates Brooklyn Taylor MD Attending Provider Active Sta rt: February 26, 2024 End: February 26, 2024 Casey Carpio MD Primary Care Provider Active Start: February 26, 2024 End: February 26, 2024 Team Status: Inactive Member Role Status Dates Casey Carpio MD Primary Care Provider Active Start: May 03, 2024 End: May 03, 2024 Brooklyn Taylor MD Attending Provider Active Sta rt: May 03, 2024 End: May 03, 2024 Team Status: Inactive Member Role Status Dates Casey Carpio MD Primary Care Provider Active Start: May 09, 2024 End: May 09, 2024 Brooklyn Taylor MD Attending Provider Active Sta rt: May 09, 2024 End: May 09, 2024 Team Status: Inactive Member Role Status Dates Casey Carpio MD Primary Care Provider Active Start: June 18, 2024 End: June 18, 2024 Ammy Pierre APRN Attending Provider Active Start: June 18, 2024 End: June 18, 2024 Team Status: Active Member Role Status Dates Casey Carpio MD Primary Care Provider Active Start: June 27, 2024 Maurisio Murguia DO Attending Provider Active Sta rt: June 27, 2024 Team Status: Inactive Member Role Status Dates Casey Carpio MD Primary Care Provider Active Start: August 26, 2024 End: August 26, 2024 Radha Dee APRN Attending Provider Active S tart: August 26, 2024 End: August 26, 2024 Team Status: Inactive Member Role Status Dates Radha Dee APRN Attending Provider Active S tart: August 26, 2024 End: August 26, 2024 Ehr Trainer Relationship Specialty Start Date End Date Malik Madison MD [address] [facility] [place] [address] PCP - General Family Medicine 02/22/24 Ehr Trainer Relationship Specialty Start Date End Date Casey Carpio MD [address] [facility] [place] [address] PCP - General Family Medicine 07/10/24 Ehr Trainer Relationship Specialty Start Date End Date Casey Carpio MD [address] [facility] [place] [address] PCP - General Family Medicine 07/10/24 Ehr Trainer Relationship Specialty Start Date End Date Malik Madison MD [address] [facility] [place] [address] PCP - General Family Medicine 02/22/24 Ehr Trainer Relationship Specialty Start Date End Date Malik Madison MD [address] [facility] [place] [address] PCP - General Family Medicine 02/22/24 Team Status: Inactive Member Role Status Dates Awilda Patton APRN Attending Provider Active Start: September 16, 2024 End: September 16, 2024 NON STAFF Primary Care Provider Active Start: September 16, 2024 End: September 16, 2024 Team Status: Inactive Member Role Status Dates Brooklyn Taylor MD Attending Provider Active Sta rt: October 31, 2024 End: October 31, 2024 Casey Carpio MD Primary Care Provider Active Start: October 31, 2024 End: October 31, 2024 Ehr Trainer Relationship Specialty Start Date End Date Malik Madison MD [address] [facility] [place] [place] [address] PCP - General Family Medicine 02/22/24 Team Status: Inactive Member Role Status Dates Brooklyn Taylor MD Attending Provider Active Sta rt: November 14, 2024 End: November 14, 2024 Casey Carpio MD Primary Care Provider Active Start: November 14, 2024 End: November 14, 2024 Ehr Trainer Relationship Specialty Start Date End Date Malik Madison MD [address] [facility] [place] [address] PCP - General Family Medicine 02/22/24 Ehr Trainer Relationship Specialty Start Date End Date Malik Madison MD [address] [facility] [place] [place] [address] PCP - General Family Medicine 02/22/24 Ehr Trainer Relationship Specialty Start Date End Date Casey Carpio MD [address] [place] [address] PCP - General Family Medicine 07/10/24 Ehr Trainer Relationship Specialty Start Date End Date Casey Carpio MD [address] [facility] [place] [address] PCP - General Family Medicine 07/10/24 Ehr Trainer Relationship Specialty Start Date End Date Casey Carpio MD [address] [place] [address] PCP - General Family Medicine 07/10/24 Ehr Trainer Relationship Specialty Start Date End Date Casey Carpio MD [address] [place] [address] PCP - General Family Medicine 07/10/24 Ehr Trainer Relationship Specialty Start Date End Date Casey Carpio MD [address] [place] [address] PCP - General Family Medicine 07/10/24 Ehr Trainer Relationship Specialty Start Date End Date Casey Carpio MD [address] [place] [address] PCP - General Family Medicine 07/10/24 Ehr Trainer Relationship Specialty Start Date End Date Casey Carpio MD [address] [place] [address] PCP - General Family Medicine 07/10/24 Ehr Trainer Relationship Specialty Start Date End Date Casey Carpio MD [address] [place] [address] PCP - General Family Medicine 07/10/24 Ehr Trainer Relationship Specialty Start Date End Date Casey Carpio MD [address] [place] [address] PCP - General Family Medicine 07/10/24 Ehr Trainer Relationship Specialty Start Date End Date Casey Carpio MD [address] [place] [address] PCP - General Family Medicine 07/10/24 Ehr Trainer Relationship Specialty Start Date End Date Casey Carpio MD [address] [place] [address] PCP - General Family Medicine 07/10/24 Ehr Trainer Relationship Specialty Start Date End Date Casey Carpio MD [address] [place] [address] PCP - General Family Medicine 07/10/24 Team Status: Inactive Member Role Status Dates Casey Carpio MD Primary Care Provider Active Start: December 02, 2024 End: December 03, 2024 Nathan Obregon Jr, MD Emergency Provider Active Start: December 02, 2024 End: December 03, 2024 Ehr Trainer Relationship Specialty Start Date End Date Casey Carpio MD [address] [place] [address] PCP - General Family Medicine 01/12/25 Ehr Trainer Relationship Specialty Start Date End Date Casey Carpio MD [address] [place] [address] PCP - General Family Medicine 01/12/25 Ehr Trainer Relationship Specialty Start Date End Date Casey Carpio MD [address] [place] [address] PCP - General Family Medicine 01/12/25 Ehr Trainer Relationship Specialty Start Date End Date Casey Carpio MD [address] [place] [address] PCP - General Family Medicine 01/12/25 Ehr Trainer Relationship Specialty Start Date End Date Casey Carpio MD [address] [place] [address] PCP - General Family Medicine 01/12/25 Ehr Trainer Relationship Specialty Start Date End Date Malik Madison MD [address] [place] [address] PCP - General Family Medicine 02/26/25 Team Status: Inactive Member Role Status Dates Casey Carpio MD Primary Care Provider Active Start: March 06, 2025 End: March 06, 2025 Brooklyn Taylor MD Attending Provider Active Sta rt: March 06, 2025 End: March 06, 2025 Team Status: Inactive Member Role Status Dates Brooklyn Taylor MD Attending Provider Active Sta rt: March 19, 2025 End: March 19, 2025 Ehr Trainer Relationship Specialty Start Date End Date Casey Carpio MD [address] [place] [address] PCP - General Family Medicine 03/09/25 Ehr Trainer Relationship Specialty Start Date End Date Casey Carpio MD [address] [place] [address] PCP - General Family Medicine 03/09/25 Goals (unrecognized section and content) Goals may be documented in a n alternate section No data available for this section No data available for this section No data available for this section No data available for this sectionGoals may be documented in an alternate sectionGoals may be documented in an alternate sectionGoals may be documented in an alternate sectionNot on filedocumented as of this encounterNot on filedocumented as of this encounterNot on filedocumented as of this encounter No data available for this sectionGoals may be documented in an alternate sectionGoals may be documented in an alternate section Reason for Visit (unrecogniz ed section and content) Reason Comments New groin masses Left inguinal region Reason Comments Follow-up OV F/U ECHO DONE 10/22, SCHED W/PT, ([employer]MO 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 He bumped it and it is painful. Reason Comments 1st po exc of Lt groin mass Reason Comments Med Change Request Reason Comments Post-op Reason Comments Abdominal Pain Patient states he davila s had a constant sharp abdominal pain for the last 4-5 months, yesterday he had a hospital visit due to the severity. Patient states a majority of his bowel movements are diarrhea. Patient states he occasionally has blood in his stool. Black or Bloody Stool Diarrhea Reason Comments Establish Care 1 week wound check Reason Comments Crohn's Disease Patient is here to anoop canchola his Crohn's disease which has not been well; patient also has some center abdominal pain. Patient has loose stools. 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 Pablo Carpio Dx; Chest Pains- EKG 06/2024- sched w pt Reason Onset Date Comments Med Refill 08/26/2024 Reason Comments Follow-up Reason Onset Date Comments Med Refill 09/06/2024 Reason Comments Abdominal Pain Patient comes in to ay with severe aching abdominal pain. He states he has had this pain since 07/2024. No other issues at this time. Crohn's Disease Reason Onset Date Comments Crohn's Disease 02/02/2025 Reason Onset Date Comments Med Refill 02/04/2025 Reason Onset Date Comments Prior Authorization 02/04/2025 Humira Reason Comments Follow-up New Masses in bilate ral groin and between buttocks. Reason Onset Date Comments EGD 03/20/2025 Colonoscopy 03/20/2025 Reason Comments Outpatient Infusion Crohn's Disease skyrizi Specialty Diagnoses / Procedures Referred By Sushma ritter Referred To Contact Gastroenterology Diagnoses Crohn's disease of large intestine with intestinal obstruction Procedures NH INJ RISANKIZUMAB-RZAA 1 MG Referral ID Status Reason Start Date Expiration Date V isits Requested Visits Authorized [id number] Authorized 03/24/2025 06/09/2025 3 3 FOR RECORDS PERTAINING TO PATIENTS WHO ARE [...] BE BASED ON THE PRIMARY CLINICAL RECORDS. [employer] [facility]. provides no warranty or guarantee of the accuracy or completeness of information in this document.
[2025-03-28 19:06] LABS: Basophils Percent Auto 0.1 % (0.2-2.0); Eosinophils Absolute Auto 0.2 10^3/uL (0.0-0.7); Hematocrit 42.4 % (42.0-54.0); Hemoglobin 13.8 g/dL (14.0-18.0); Immature Granulocytes Abs Auto 0.02 10^3/uL (0.00-0.03); Immature Granulocytes Pct Auto 0.3 % (0.0-0.5); Lymphocytes Absolute Auto 2.3 10^3/uL (1.2-3.8); Lymphocytes Percent Auto 29.8 % (20.5-60.0); Mean Corpuscular HGB Conc 32.5 g/dL (29.9-35.2); Mean Corpuscular Hemoglobin 28.6 pg (25.9-34.0); Mean Corpuscular Volume 87.8 fL (80.0-94.0); Monocytes Absolute Auto 0.7 10^3/uL (0.3-0.8); Monocytes Percent Auto 9.2 % (1.7-12.0); Neutrophils Absolute Auto 4.4 10^3/uL (1.4-6.5); Neutrophils Percent Auto 57.6 % (43.0-75.0); Platelet Count 325 10^3/uL (150-450); Red Blood Count 4.83 10^6/uL (4.70-6.10); Red Cell Distribution Width 12.1 % (11.0-15.0); White Blood Count 7.7 10^3/uL (4.0-11.0)
[2025-03-28 19:22] LABS: Alanine Aminotransferase 52 U/L (16-63); Albumin Globulin Ratio 0.8; Albumin Level 3.2 g/dL (3.4-5.0); Alkaline Phosphatase 94 U/L (46-116); Aspartate Amino Transferase 15 U/L (15-37); BUN Creatinine Ratio 28.9; Bilirubin Total 0.3 mg/dL (0.2-1.0); Calcium 9.4 mg/dL (8.5-10.1); Chloride 101 mmol/L (98-107); Estimated GFR (African America >60 (>=60 mL/min/1.73m^2); Estimated GFR (Non-African Ame >60 (>=60 mL/min/1.73m^2); Globulin 3.9 g/dL; Glucose 79 mg/dL (74-106); Sodium 140 mmol/L (136-145); Total Protein 7.1 g/dL (6.4-8.2)
[2025-03-28] MEDS: ONDANSETRON PF 4 MG/2 ML VIAL IV (19:49)
[2025-03-28] MEDS: MORPHINE SULFATE 2 MG/ML SYRINGE IV (19:49)
[2025-03-28] MEDS: 0.9 % SODIUM CHLORIDE 1,000 ML 500 ML IV (19:50)
[2025-03-28 20:56] VITALS: BP 107/66; PULSE 67; O2SAT 100
== END 2025-03-28 20:50 | disposition home or self-care (01) ==
PROVIDERS: Nurse Practitioner Family; Emergency Provider Emergency Medicine; PCP Family Medicine
DX: R10.84 Generalized abdominal pain (principal); K50.90 Crohn's disease, unspecified, without complications; R14.0 Abdominal distension (gaseous)
CPT/HCPCS: 36415; 74177; 80053; 83690; 85025; 96374; 96375; 99285; J2270; J2405; Q9967